=== PATIENT | female | born 1975 | race American Indian/Alaskan Native ===

== ENCOUNTER 2018-10-30 12:30 | Emergency (ER) | payer MEDICAID ==
[2018-10-30] MEDS ORDERED: APRESOLINE IV ONE (13:00)
--- NOTE | 2018-10-30 13:02 | Emergency Department Report ---
HPI - General Chief Complaint: High BP Time Seen by Provider: 10/30/18 12:56 - HPI HPI: 43-year-old female presents to the emergency department via EMS from her dialysis clinic with complaint of elevated blood pressure. The patient does have a history of hypertension and says that she has been out of her clonidine and nifedipine for a few days. She has end-stage renal disease on hemodialysis on Friday/Friday/Friday and last had dialysis done on Friday, 2 days ago. She went this morning to get dialyzed but was told they could not do it because the blood pressure was too high. She says that she was not given any blood pressure medications to attempt to get her blood pressure down. She denies any headache, chest pain, shortness of breath and otherwise feels at her baseline status. Her team member is Dr. Barker. ED Past Medical Hx - Past Medical History Hx Hypertension: Yes Hx Heart Attack/AMI: No Hx Congestive Heart Failure: Yes Hx Diabetes: Yes (DM) Hx Deep Vein Thrombosis: No Hx Pulmonary Embolism: No Hx Renal Disease: Yes (CKD) Hx Asthma: No Hx COPD: Yes Hx Tuberculosis: No Hx HIV: No - Surgical History Hx Coronary Stent: No Hx Pacemaker: No Hx Internal Defibrillator: No Additional Surgical History: - Social History Smoking Status: Unknown if ever smoked - Medications Home Medications: Home Medications Medication Instructions Recorded Confirmed Last Taken Type RX: oxyCODONE /ACETAMINOPHEN 1 tab PO Q6H PRN #12 tablet 07/23/18 09/16/18 Unknown Rx [Percocet 5/325 mg] RX: ISOSORBIDE MONOnitrate [Imdur 60 mg PO QDAY 08/19/18 09/16/18 09/16/18 10:00 History ER] RX: NIFEdipine XL [Procardia Xl] 60 mg PO Q12HR #60 tablet 08/21/18 09/16/18 09/16/18 10:00 Rx RX: hydrALAZINE [Apresoline TAB] 100 mg PO TID #90 tab 08/21/18 09/16/18 09/16/18 10:00 Rx RX: Acetaminophen [Acetaminophen 650 mg PO Q4H PRN #15 tablet 09/18/18 Unknown Rx TAB] RX: Aspirin [Aspirin TAB] 325 mg PO QDAY #30 tablet 09/18/18 Unknown Rx RX: Metoprolol [Lopressor TAB] 100 mg PO BID #60 tablet 10/30/18 Unknown Rx RX: cloNIDine [Catapres] 0.2 mg PO Q8H #90 tablet 10/30/18 Unknown Rx ED Review of Systems ROS: Stated complaint: HYPERTENTION Other details as noted in HPI Comment: All other systems reviewed and negative Constitutional: denies: chills, fever Eyes: denies: eye pain, vision change ENT: denies: ear pain, throat pain Respiratory: denies: cough, shortness of breath Cardiovascular: denies: chest pain, palpitations Gastrointestinal: denies: nausea, vomiting Genitourinary: denies: urgency, dysuria Musculoskeletal: denies: back pain, arthralgia Skin: denies: rash, lesions Neurological: denies: headache, weakness Physical Exam - Physical Exam Vital Signs: Vital Signs 10/30/18 12:52 Temperature 97.8 F Pulse Rate 97 H Respiratory 14 Rate Blood Pressure 209/103 [Left] O2 Sat by Pulse 98 Oximetry Physical Exam: GENERAL: The patient is well-developed well-nourished. HEENT: Normocephalic. Atraumatic. Patient has moist mucous membranes. EYES: Extraocular motions are intact. Pupils are equal and reactive to light bilaterally. NECK: Supple. Trachea is midline. CHEST/LUNGS: Mild coarse breath sounds. No tachypnea or accessory muscle use.. There is no respiratory distress noted. HEART/CARDIOVASCULAR: Regular. There is no tachycardia. There is no obvious murmur. ABDOMEN: Abdomen is soft, nontender. Patient has normal bowel sounds. Obese habitus. SKIN: Skin is warm and dry. NEURO: The patient is awake, alert, and oriented. The patient is cooperative. The patient has no focal neurologic deficits. The patient has normal speech. MUSCULOSKELETAL: There is no tenderness or deformity. There is no evidence of acute injury. ED Course Vital Signs 10/30/18 12:52 Temperature 97.8 F Pulse Rate 97 H Respiratory 14 Rate Blood Pressure 209/103 [Left] O2 Sat by Pulse 98 Oximetry - Consultations Consultation #1: 10/30/18 18:[address] Green, nephrology, regarding the patient's presentation and lack of dialysis secondary to her hypertension. He says that he agrees that the hypotension may be secondary to medication noncompliance and recommends refilling the blood pressure medication. He also agrees that the patient is safe for discharge home since there are no significant electrolyte abnormalities or signs of any volume overload. He recommends that the patient call the dialysis clinic today to make an appointment for dialysis for tomorrow. ED Medical Decision Making - Lab Data Result diagrams: 10/30/18 13:26 10/30/18 13:26 - Medical Decision Making Patient presents for evaluation after she was sent in by the dialysis clinic due to elevated blood pressure. Because of the elevated blood pressure the dialysis clinic would not let her get dialysis today. The patient has no complaints of any shortness of breath, edema, nausea, vomiting or any other physical complaints at this time. She has been out of her medication for the metoprolol and clonidine. Since the patient does not have any chest pain, shortness of breath or signs of any respiratory distress, did not feel that x- ray imaging was necessary at this time. Patient's labs were mostly unremarkable except for the renal insufficiency which is chronic as she is on dialysis. Patient was given a dose of hydralazine and labetalol and her blood pressure came down to a much more reasonable level. I spoke with the nephrology service who says that the patient can be safely discharged home and should call the dialysis clinic to schedule dialysis for tomorrow, Friday. Critical Care Time: No Critical care attestation.: If time is entered above; I have spent that time in minutes in the direct care of this critically ill patient, excluding procedure time. ED Disposition Clinical Impression: ESRD on hemodialysis Hypertension Qualifiers: Hypertension type: essential hypertension Qualified Code(s): I10 - Essential (primary) hypertension Disposition: - TO HOME OR SELFCARE Is pt being admited?: No Condition: Stable Instructions: Chronic Kidney Disease (ED), Hypertension (ED) Additional Instructions: Please call the dialysis clinic today to make an appointment for getting dialysi s tomorrow. Follow-up with your team member and primary care physician. Take your blood pressure medications. Try and stay away from foods that are high in salt and caffeinated products to help with her blood pressure. Keep a blood pressure log. Return to the emergency department with any shortness of breath, chest pain, worsening of your symptoms, if any acute distress. Prescriptions: RX: cloNIDine [Catapres] 0.2 mg PO Q8H #90 tablet RX: Metoprolol [Lopressor TAB] 100 mg PO BID #60 tablet Referrals: PRIMARY CARE, [Primary Care Provider] - SRED[facility]AR Time of Disposition: 15:28
[2018-10-30 13:49] LABS: Basophils # (Auto) 0.1 K/mm3 (0.0-0.1); Eosinophils # (Auto) 0.1 K/mm3 (0.0-0.4); Eosinophils % (Auto) 1.9 % (0.0-4.3); Hemoglobin 10.3 gm/dl (10.1-14.3); Mean Corpuscular HGB Conc 32 % (30-34); Mean Corpuscular Volume 85 fl (79-97); Monocytes # (Auto) 0.9 K/mm3 (0.0-0.8); Monocytes % (Auto) 12.7 % (0.0-7.3); Platelet Count 336 K/mm3 (140-440); Red Blood Count 3.77 M/mm3 (3.65-5.03)
[2018-10-30 13:50] LABS: Red Cell Distribution Width 21.4 % (13.2-15.2)
[2018-10-30 14:28] LABS: Anisocytosis 1+; Basophils % (Manual) 0 % (0.0-1.8); Hypochromasia 1+; Total Cells Counted 100
[2018-10-30 14:29] LABS: Ovalocytes Few; Target Cells 1+
[2018-10-30 15:00] LABS: Albumin 3.7 g/dL (3.9-5); Calcium 9.8 mg/dL (8.4-10.2)
[2018-10-30] MEDS ORDERED: NORMODYNE IV ONE (15:01)
[2018-10-30 15:38] VITALS: BP 145/82
== END 2018-10-30 15:53 | disposition home or self-care (01) ==
LOC: MERGE 12:30 → ED 12:30
DX: I13.2 Hypertensive heart and chronic kidney disease with heart failure and with stage 5 chronic kidney disease, or end stage renal disease (principal); E11.22 Type 2 diabetes mellitus with diabetic chronic kidney disease; N18.6 End stage renal disease; I50.9 Heart failure, unspecified; J44.9 Chronic obstructive pulmonary disease, unspecified; Z99.2 Dependence on renal dialysis; Z79.4 Long term (current) use of insulin; Z79.82 Long term (current) use of aspirin
CPT/HCPCS: 36415; 80053; 85007; 85025; 96374; 96375; 99284; J0360

== ENCOUNTER 2019-01-27 11:26 | Emergency (ER) | payer MEDICAID ==
--- NOTE | 2019-01-27 11:53 | Emergency Department Report ---
Blank Doc - Documentation Documentation: This is a 43-year-old female that presents with missing dialysis. Was sent by PCP. Missed Mondays dialysis. This initial assessment/diagnostic orders/clinical plan/treatment(s) is/are subject to change based on patient's health status, clinical progression and re- assessment by fellow clinical providers in the ED. Further treatment and workup at subsequent clinical providers discretion. Patient/guardians urged not to elope from the ED as their condition may be serious if not clinically assessed and managed. Initial orders include: 1- Patient sent to MAIN ED for further evaluation and treatment 2- labs 3- EKG
[2019-01-27 11:54] VITALS: BP 139/80
--- NOTE | 2019-01-27 12:12 | Emergency Department Report ---
ED Recheck HPI - General Chief Complaint: Medical Clearance Stated Complaint: LABS FOR POTASSIUM/EAR ACHE Time Seen by Provider: 01/27/19 11:51 Source: patient Mode of arrival: Ambulatory Limitations: No Limitations - History of Present Illness Initial Comments: SENT BY HD CLINIC FOR LABS BECAUSE SHE MISSED HD ON FRIDAY. NO SYMPTOMS. - Related Data Previous Rx's Medication Instructions Recorded Last Taken Type NIFEdipine XL [Procardia Xl] 60 mg PO Q12HR #60 tablet 08/21/18 09/16/18 10:00 Rx hydrALAZINE [Apresoline TAB] 100 mg PO TID #90 tab 08/21/18 09/16/18 10:00 Rx cloNIDine [Catapres] 0.2 mg PO Q8H #90 tablet 10/30/18 Unknown Rx Cetirizine HCl [ZyrTEC] 10 mg PO DAILY #30 capsule 01/27/19 Unknown Rx Fluticasone [Flonase] 1 spray NS QDAY #1 bottle 01/27/19 Unknown Rx Allergies Allergy/AdvReac Type Severity Reaction Status Date / Time No Known Allergies Allergy Verified 01/27/19 11:29 ED Review of Systems ROS: Stated complaint: LABS FOR POTASSIUM/EAR ACHE Other details as noted in HPI Comment: All other systems reviewed and negative ED Past Medical Hx - Past Medical History Hx Hypertension: Yes Hx Heart Attack/AMI: No Hx Congestive Heart Failure: Yes Hx Diabetes: Yes (DM) Hx Deep Vein Thrombosis: No Hx Pulmonary Embolism: No Hx Renal Disease: Yes (CKD) Hx Asthma: No Hx COPD: Yes Hx Tuberculosis: No Hx HIV: No - Surgical History Hx Coronary Stent: No Hx Pacemaker: No Hx Internal Defibrillator: No Additional Surgical History: - Social History Smoking Status: Never Smoker Substance Use Type: None - Medications Home Medications: Home Medications Medication Instructions Recorded Confirmed Last Taken Type NIFEdipine XL [Procardia Xl] 60 mg PO Q12HR #60 tablet 08/21/18 09/16/18 09/16/18 10:00 Rx hydrALAZINE [Apresoline TAB] 100 mg PO TID #90 tab 08/21/18 09/16/18 09/16/18 10:00 Rx cloNIDine [Catapres] 0.2 mg PO Q8H #90 tablet 10/30/18 Unknown Rx Cetirizine HCl [ZyrTEC] 10 mg PO DAILY #30 capsule 01/27/19 Unknown Rx Fluticasone [Flonase] 1 spray NS QDAY #1 bottle 01/27/19 Unknown Rx ED Physical Exam - General Limitations: No Limitations General appearance: alert - Head Head exam: Present: atraumatic, normocephalic - Eye Eye exam: Present: normal appearance - ENT ENT exam: Present: mucous membranes moist - Neck Neck exam: Present: normal inspection - Respiratory Respiratory exam: Present: normal lung sounds bilaterally - Cardiovascular Cardiovascular Exam: Present: regular rate - GI/Abdominal GI/Abdominal exam: Present: soft, normal bowel sounds - Rectal Rectal exam: Present: deferred - Extremities Exam Extremities exam: Present: normal inspection, full ROM, other (GEN EDEMA) - Back Exam Back exam: Present: normal inspection - Neurological Exam Neurological exam: Present: alert, oriented X3 - Psychiatric Psychiatric exam: Present: normal affect, normal mood - Skin Skin exam: Present: warm, dry ED Course Vital Signs 01/27/19 11:52 Temperature 97.8 F Pulse Rate 76 Respiratory 18 Rate Blood Pressure 139/80 O2 Sat by Pulse 97 Oximetry - Reevaluation(s) Reevaluation #1: 01/27/19 VASCATH L SUBCLAVIAN ON HD X 2 M NO SYMPTOMS VSS ED Recheck MDM - Core Measures Measure Exclusions: not indicated - Medical Decision Making Vital Signs (72 hours) 01/27/19 11:52 Temperature 97.8 F Pulse Rate 76 Respiratory 18 Rate Blood Pressure 139/80 O2 Sat by Pulse 97 Oximetry Labs 01/27/19 01/27/19 12:05 12:05 WBC 7.0 RBC 4.14 Hgb 12.1 Hct 36.4 MCV 88 MCH 29 MCHC 33 RDW 18.6 H Plt Count 269 Lymph % (Auto) 13.3 L Trigg % (Auto) 13.1 H Eos % (Auto) 1.5 Baso % (Auto) 1.2 Lymph # 0.9 L Trigg # 0.9 H Eos # 0.1 Baso # 0.1 Seg Neutrophils % 70.9 H Seg Neutrophils # 5.0 Sodium 137 Potassium 4.1 Chloride 98.3 Carbon Dioxide 17 L Anion Gap 26 BUN 64 H Creatinine 9.0 H Estimated GFR 5 BUN/Creatinine Ratio 7 Glucose 125 H Calcium 9.4 Phosphorus 7.40 H LABS NOTED DC TO HD CLINIC Critical care attestation.: If time is entered above; I have spent that time in minutes in the direct care of this critically ill patient, excluding procedure time. ED Disposition Clinical Impression: CKD (chronic kidney disease), End stage renal disease on dialysis, Ear pain Disposition: TO HOME OR SELFCARE Is pt being admited?: No Does the pt Need Aspirin: No Condition: Stable Additional Instructions: K 4.1 PHOS 7.4 TAKE INFO TO HD LAB Prescriptions: Fluticasone [Flonase] 1 spray NS QDAY #1 bottle Cetirizine HCl [ZyrTEC] 10 mg PO DAILY #30 capsule Referrals: DEREJE PUENTE MD [Primary Care Provider] - 3-5 Days Time of Disposition: 12:49
[2019-01-27 12:17] LABS: Basophils # (Auto) 0.1 K/mm3 (0.0-0.1); Basophils % (Auto) 1.2 % (0.0-1.8); Eosinophils # (Auto) 0.1 K/mm3 (0.0-0.4); Eosinophils % (Auto) 1.5 % (0.0-4.3); Hematocrit 36.4 % (30.3-42.9); Hemoglobin 12.1 gm/dl (10.1-14.3); Lymphocytes # (Auto) 0.9 K/mm3 (1.2-5.4); Lymphocytes % (Auto) 13.3 % (13.4-35.0); Mean Corpuscular HGB Conc 33 % (30-34); Mean Corpuscular Volume 88 fl (79-97); Monocytes # (Auto) 0.9 K/mm3 (0.0-0.8); Monocytes % (Auto) 13.1 % (0.0-7.3); Platelet Count 269 K/mm3 (140-440); Red Blood Count 4.14 M/mm3 (3.65-5.03); Red Cell Distribution Width 18.6 % (13.2-15.2)
[2019-01-27 12:36] LABS: Calcium 9.4 mg/dL (8.4-10.2)
== END 2019-01-27 13:01 | disposition home or self-care (01) ==
LOC: MERGE 11:26 → ED 11:26
DX: E11.22 Type 2 diabetes mellitus with diabetic chronic kidney disease (principal); I13.2 Hypertensive heart and chronic kidney disease with heart failure and with stage 5 chronic kidney disease, or end stage renal disease; I50.9 Heart failure, unspecified; N18.6 End stage renal disease; H92.02 Otalgia, left ear; Z99.2 Dependence on renal dialysis
CPT/HCPCS: 36415; 80048; 84100; 85025

== ENCOUNTER 2019-03-12 12:22 | Observation (INO) | payer MEDICARE ==
--- NOTE | 2019-03-12 13:07 | Emergency Department Report ---
Blank Doc - Documentation Documentation: pt states that the dialysis clinic wanted her to have labs drawn she last went to dialysis on 03/03 pt is asymptomatic she goes to dialysis on MWF non smoker non drinker no allergies to medications PMHx HTN, DM
[2019-03-12 13:37] LABS: Basophils # (Auto) 0.1 K/mm3 (0.0-0.1); Basophils % (Auto) 0.8 % (0.0-1.8); Eosinophils # (Auto) 0.2 K/mm3 (0.0-0.4); Eosinophils % (Auto) 3.7 % (0.0-4.3); Hematocrit 34.4 % (30.3-42.9); Hemoglobin 11.1 gm/dl (10.1-14.3); Lymphocytes # (Auto) 1.6 K/mm3 (1.2-5.4); Lymphocytes % (Auto) 23.4 % (13.4-35.0); Mean Corpuscular HGB Conc 32 % (30-34); Mean Corpuscular Volume 88 fl (79-97); Monocytes % (Auto) 14.7 % (0.0-7.3); Platelet Count 240 K/mm3 (140-440); Red Blood Count 3.91 M/mm3 (3.65-5.03); Red Cell Distribution Width 17.5 % (13.2-15.2)
[2019-03-12 13:57] LABS: Calcium 9.6 mg/dL (8.4-10.2)
[2019-03-12] MEDS ORDERED: CATAPRES PO ONE (14:33)
--- NOTE | 2019-03-12 14:34 | Emergency Department Report ---
HPI - General Chief Complaint: Recheck/Abnormal Lab/Rx Time Seen by Provider: 03/12/19 13:05 - HPI HPI: Room 4 The patient is a 43-year-old female presenting with a chief complaint of end- stage renal disease. The patient has a history end-stage renal disease and is usually dialyzed every Friday and Friday. Patient states she was last dialyzed 2 days ago (Friday) and was unable to go today secondary to a in the family. The patient states she called the dialysis center and was told to come to the ED to have her potassium checked. The patient denies complaints Location: [See above] Duration: [See above] Quality: [See above] Severity: [See above] Modifying factors: [see above] Context: [see above] Mode of transportation: [not driving] ED Past Medical Hx - Past Medical History Hx Hypertension: Yes Hx Congestive Heart Failure: Yes Hx Diabetes: Yes Hx Renal Disease: Yes Hx COPD: Yes - Surgical History Additional Surgical History: Perm cath, - Family History Family history: no significant - Social History Smoking Status: Never Smoker Substance Use Type: None - Medications Home Medications: Home Medications Medication Instructions Recorded Confirmed Last Taken Type NIFEdipine XL [Procardia Xl] 60 mg PO Q12HR #60 tablet 08/21/18 09/16/18 09/16/18 10:00 Rx hydrALAZINE [Apresoline TAB] 100 mg PO TID #90 tab 08/21/18 09/16/18 09/16/18 10:00 Rx cloNIDine [Catapres] 0.2 mg PO Q8H #90 tablet 10/30/18 Unknown Rx Cetirizine HCl [ZyrTEC] 10 mg PO DAILY #30 capsule 01/27/19 Unknown Rx Fluticasone [Flonase] 1 spray NS QDAY #1 bottle 01/27/19 Unknown Rx NIFEdipine XL [Procardia Xl] 60 mg PO QDAY #30 tablet 02/14/19 Unknown Rx oxyCODONE /ACETAMINOPHEN [Percocet 1 tab PO Q6H PRN tablet 02/14/19 Unknown Rx 5/325 mg] ED Review of Systems ROS: Stated complaint: BLOOD WORK FOR DIALYSIS Other details as noted in HPI Constitutional: no symptoms reported Eyes: denies: eye pain ENT: denies: throat pain Respiratory: no symptoms reported Cardiovascular: denies: chest pain Endocrine: no symptoms reported Gastrointestinal: denies: abdominal pain Genitourinary: denies: abnormal menses Musculoskeletal: denies: back pain Neurological: denies: headache Physical Exam - Physical Exam Vital Signs: Vital Signs 03/12/19 13:05 Temperature 98 F Pulse Rate 99 H Respiratory 18 Rate Blood Pressure 218/115 O2 Sat by Pulse 96 Oximetry Physical Exam: GENERAL: The patient is well-developed well-nourished female lying on stretcher not appearing to be in acute distress. [] HEENT: Normocephalic. Atraumatic. Extraocular motions are intact. Patient has moist mucous membranes. NECK: Supple. Trachea midline CHEST/LUNGS: Clear to auscultation. There is no respiratory distress noted. HEART/CARDIOVASCULAR: Regular. There is no tachycardia. There is no gallop rub or murmur. ABDOMEN: Abdomen is soft, nontender. Patient has normal bowel sounds. There is no abdominal distention. SKIN: There is no rash. There is no edema. There is no diaphoresis. NEURO: The patient is awake, alert, and oriented. The patient is cooperative. The patient has normal speech MUSCULOSKELETAL: There is no evidence of acute injury. ED Course Vital Signs 03/12/19 13:05 Temperature 98 F Pulse Rate 99 H Respiratory 18 Rate Blood Pressure 218/115 O2 Sat by Pulse 96 Oximetry - Consultations Consultation #1: 03/12/19 15:18 Case discussed with ferry captain Dr. George- will arrange for hemodialysis today ED Medical Decision Making - Lab Data Result diagrams: 03/12/19 13:12 03/12/19 13:12 Laboratory Tests 03/12/19 03/12/19 03/12/19 13:12 13:12 13:36 WBC 6.7 RBC 3.91 Hgb 11.1 Hct 34.4 MCV 88 MCH 28 MCHC 32 RDW 17.5 H Plt Count 240 Lymph % (Auto) 23.4 Sac % (Auto) 14.7 H Eos % (Auto) 3.7 Baso % (Auto) 0.8 Lymph # 1.6 Sac # 1.0 H Eos # 0.2 Baso # 0.1 Seg Neutrophils % 57.4 Seg Neutrophils # 3.8 Sodium 140 Potassium 4.0 Chloride 97.9 L Carbon Dioxide 21 L Anion Gap 25 BUN 65 H Creatinine 8.4 H Estimated GFR 6 BUN/Creatinine Ratio 8 Glucose 135 H Calcium 9.6 Phosphorus 5.00 H Magnesium 2.10 - Differential Diagnosis end-stage renal disease Critical care attestation.: If time is entered above; I have spent that time in minutes in the direct care of this critically ill patient, excluding procedure time. ED Disposition Clinical Impression: End stage renal disease, Missed dialysis Disposition: OP ADMIT IP TO THIS HOSP Is pt being admited?: Yes Does the pt Need Aspirin: No Condition: Fair Referrals: RU ARCHIBALD MD [Primary Care Provider] - 3-5 Days Time of Disposition: 15:19 (hospitalist notified (Dr Arizmendi))
--- NOTE | 2019-03-12 15:55 | Consultation ---
History of Present Illness - Reason for Consult end stage renal disease - History of Present Illness 43 year old with medical history significant for hypertension uncontrolled, diabetes mellitus type 2 uncontrolled end-stage renal disease on hemodialysis on Friday at [facility] reports she had a in the family and did not go to dialysis today was told by dialysis. She was told by dialysis nurse to come to the hospital to check her potassium level. She has significant lower extremity edema denies any shortness of breath she denies any orthopnea PND she reports her last dialysis was Friday she denies any cough. Denies Fevers chills denies any nausea vomiting. Denies any cramps she has a right IJ PermCath she recently started dialysis about a year ago Medications and Allergies Allergies Allergy/AdvReac Type Severity Reaction Status Date / Time No Known Allergies Allergy Verified 03/12/19 12:23 Home Medications Medication Instructions Recorded Confirmed Last Taken Type NIFEdipine XL [Procardia Xl] 60 mg PO Q12HR #60 tablet 08/21/18 09/16/18 09/16/18 10:00 Rx hydrALAZINE [Apresoline TAB] 100 mg PO TID #90 tab 08/21/18 09/16/18 09/16/18 10:00 Rx cloNIDine [Catapres] 0.2 mg PO Q8H #90 tablet 10/30/18 Unknown Rx Cetirizine HCl [ZyrTEC] 10 mg PO DAILY #30 capsule 01/27/19 Unknown Rx Fluticasone [Flonase] 1 spray NS QDAY #1 bottle 01/27/19 Unknown Rx NIFEdipine XL [Procardia Xl] 60 mg PO QDAY #30 tablet 02/14/19 Unknown Rx oxyCODONE /ACETAMINOPHEN [Percocet 1 tab PO Q6H PRN tablet 02/14/19 Unknown Rx 5/325 mg] Review of Systems Constitutional: weight gain, fatigue, no fever, no chills, no sweats, no anorexia Ears, nose, mouth and throat: no deferred, no ear pain Cardiovascular: no chest pain, no orthopnea, no palpitations, no shortness of breath Respiratory: no cough, no cough with sputum Gastrointestinal: no abdominal pain, no nausea, no vomiting Musculoskeletal: no neck stiffness, no neck pain Integumentary: no deferred, no rash Neurological: no head injury, no transient paralysis Psychiatric: no anxiety, no memory loss Endocrine: no cold intolerance, no heat intolerance Hematologic/Lymphatic: no easy bruising, no easy bleeding Allergic/Immunologic: no urticaria, no allergic rhinitis Exam - Vital Signs Vital signs: Vital Signs Temp Pulse Resp BP Pulse Ox 98 F 99 H 18 218/115 96 03/12/19 13:05 03/12/19 13:05 03/12/19 13:05 03/12/19 13:05 03/12/19 13:05 - General Appearance General appearance: well-developed, well-nourished EENT: ATNC, PERRL, mucous membranes moist Neck: Present: neck supple Respiratory: Clear to Ascultation Heart: regular, S1S2 Gastrointestinal: Present: normal, normoactive bowel sounds Neurologic: no focal deficit, CN 3-12 intact Musculoskeletal: Present: other (grade 3 edema. ) Psychiatric: mood/affect appropriate Results - Lab Results 03/12/19 13:12 03/12/19 13:12 Most recent lab results Calcium 9.6 mg/dL (8.4-10.2) 03/12/19 13:12 Phosphorus 5.00 mg/dL (2.5-4.5) H 03/12/19 13:36 Magnesium 2.10 mg/dL (1.7-2.3) 03/12/19 13:36 Assessment and Plan - Patient Problems (1) ESRD (end stage renal disease) Current Visit: Yes Status: Acute Plan to address problem: End-stage renal disease on dialysis Dialysis access right IJ PermCath will initiate dialysis 3 L fluid removal Treatment time 3 and half hours (2) CHF (congestive heart failure) Current Visit: No Status: Acute Qualifiers: Heart failure type: diastolic Plan to address problem: Congestive heart failure I reviewed echocardiogram with diastolic dysfunction and preserved EF Ultrafiltration with dialysis (3) Diabetes mellitus Current Visit: No Status: Chronic Qualifiers: Diabetes mellitus type: type 2 Plan to address problem: Diabetes mellitus type 2 uncontrolled Continue medications Monitor fingerstick (4) Hypertensive urgency Current Visit: No Status: Acute Plan to address problem: Hypertensive urgency: Blood pressure 223/111 We'll initiate dialysis to optimize wound status Give labetalol 20 mg IV Resume oral medications
[2019-03-12] MEDS ORDERED: NORMODYNE IV PRN (16:12)
[2019-03-12 20:17] VITALS: BP 204/106
--- NOTE | 2019-03-12 23:15 | History and Physical Report ---
CHIEF COMPLAINT: Missed dialysis today. HISTORY OF PRESENT ILLNESS: A 43-year-old -[place] female with history of hypertension and end-stage renal disease, who missed dialysis today, comes in for emergent dialysis. The patient had a in the family and did not go to the dialysis. The dialysis center wanted her potassium to be checked before she comes back on Friday. The patient is to be sent to do hemodialysis for emergent dialysis. Some shortness of breath is present. Otherwise, asymptomatic. PAST MEDICAL HISTORY: Significant for hypertension, end-stage renal disease. CURRENT MEDICATIONS: On the chart including nifedipine 60 mg q.12 hours, hydralazine 100 mg 3 times a day, clonidine 0.2 p.o. q.8 hours, cetirizine 10 mg daily q.i.d., Flonase 1 spray daily, oxycodone/Percocet 1 tablet 5/325 q.i.d. p.r.n. PAST SURGICAL HISTORY: The patient has AV fistula in the left arm. FAMILY HISTORY: Hypertension. SOCIAL HISTORY: Does not smoke. No alcohol, no recreational drugs. REVIEW OF SYSTEMS: Significant for slight shortness of breath. Otherwise, review of systems negative. PHYSICAL EXAMINATION: GENERAL: Revealed a middle-aged female, cooperative during examination. VITAL SIGNS: Blood pressure is 194/103 and 190/90, temperature is 98.2, pulse is 78, respirations 18. HEENT: Unremarkable. Pupils are equal and reactive. NECK: Supple, no lymphadenopathy, no thyromegaly. LUNGS: Clear to auscultation and percussion. Good air entry. CARDIOVASCULAR: S1, S2 heard. No gallop, no murmur, no rub. Apical impulse in left fifth intercostal space and midclavicular line. ABDOMEN: Soft and benign. No hepatosplenomegaly. No guarding, no rigidity. Hernial orifices are normal. EXTREMITIES: Good pedal pulses. No pedal edema. CENTRAL NERVOUS SYSTEM: Alert and oriented x 4, nonfocal exam. LABORATORY DATA: CBC is near normal. Electrolytes: Sodium is 140, potassium is 4.0, chloride is 97.1, bicarbonate is 21, BUN and creatinine 65 and 8.4, phosphorus is 5.0. ASSESSMENT AND PLAN: 1. End-stage renal disease, needing dialysis. The patient is being sent for hemodialysis. Nephrology consulted. 2. Hypertensive emergency. Resume her home medications and also the patient counseled about compliance with medications. 3. Allergic rhinitis. Continue Flonase. 4. Chronic pain. Continue Percocet 5/325. 5. Deep venous thrombosis prophylaxis, heparin 5000 q. 12. In summary, the patient has end-stage renal disease, needing dialysis, hypertensive emergency. Medications adjusted. 6. Allergic rhinitis. 7. Chronic pain. JOB# [id number] VSTra/NTS
--- NOTE | 2019-03-12 23:16 | Discharge Summary ---
HOSPITAL COURSE: The patient was admitted for hypertensive emergency and end-stage renal disease, needing dialysis. The patient did not have hyperkalemia. The patient missed dialysis. The patient was sent for emergent dialysis. The patient tolerated dialysis well. The patient's labs were checked. Potassium was 4.0, bicarbonate was 21. Phosphatase was slightly high 5.00. The patient underwent dialysis well, symptomatically better. The patient is being discharged on her home medications and no new medications. DISCHARGE DIAGNOSES: 1. Hypertensive emergency. The patient counseled about controlling her blood pressure and taking her blood pressure medicines regularly. The last blood pressure at the time of discharge was 187/92. 2. End-stage renal disease. To continue her dialysis on a regular basis. Counseled about compliance. 3. Allergic rhinitis. Continue her Flonase and Zyrtec. 4. Chronic pain. Continue Percocet. JOB# [id number] CAROLINE/NTS
== END 2019-03-12 20:55 | disposition home or self-care (01) ==
LOC: ED 12:22 → 3A 15:21
PROVIDERS: ADMIT Internal Medicine; ATTEND Internal Medicine
DX: I13.2 Hypertensive heart and chronic kidney disease with heart failure and with stage 5 chronic kidney disease, or end stage renal disease (principal); E11.22 Type 2 diabetes mellitus with diabetic chronic kidney disease; N18.6 End stage renal disease; I50.9 Heart failure, unspecified; I16.0 Hypertensive urgency; J30.9 Allergic rhinitis, unspecified; Z99.2 Dependence on renal dialysis; Z79.899 Other long term (current) drug therapy; G89.29 Other chronic pain; Z98.890 Other specified postprocedural states
CPT/HCPCS: 36415; 80048; 83735; 84100; 85025; 99284; G0378; G0257

== ENCOUNTER 2019-04-07 10:16 | Observation (INO) | payer MEDICARE ==
[2019-04-07 11:07] LABS: Hematocrit 31.6 % (30.3-42.9); Hemoglobin 10.4 gm/dl (10.1-14.3); Mean Corpuscular HGB Conc 33 % (30-34); Mean Corpuscular Volume 87 fl (79-97); Platelet Count 222 K/mm3 (140-440); Red Blood Count 3.64 M/mm3 (3.65-5.03); Red Cell Distribution Width 16.5 % (13.2-15.2)
--- NOTE | 2019-04-07 11:29 | XRay Report ---
Single view chest: Compared to 02/14/19. History: Shortness of breath. Findings: Cardiomegaly. Trachea is midline. Stable large bore venous catheter. Mild pulmonary venous congestion mid and right second Impression: Unilateral mild pulmonary venous congestion.
[2019-04-07 11:40] LABS: Albumin 3.5 g/dL (3.9-5); Calcium 9.7 mg/dL (8.4-10.2)
[2019-04-07] MEDS ORDERED: CATAPRES PO ONE (12:12)
--- NOTE | 2019-04-07 12:15 | Emergency Department Report ---
HPI - General Chief Complaint: Medical Clearance Time Seen by Provider: 04/07/19 11:01 - HPI HPI: Missed dialysis for two weeks because she didn't feel well. states she has been coughing, sob, and feeling week. Was sent to ER by nephro. no n/v, no chest p ain. states bp has been running high. She denies medications compliance. Patient had recent hospitalization in february. Patient with right PermaCath in place since july of 2018. ED Past Medical Hx - Past Medical History Hx Hypertension: Yes Hx Heart Attack/AMI: No Hx Congestive Heart Failure: Yes Hx Diabetes: Yes Hx Deep Vein Thrombosis: No Hx Pulmonary Embolism: No Hx Renal Disease: Yes Hx Asthma: No Hx COPD: Yes Hx Tuberculosis: No Hx HIV: No - Surgical History Hx Coronary Stent: No Hx Pacemaker: No Hx Internal Defibrillator: No Additional Surgical History: Perm cath, - Social History Smoking Status: Never Smoker Substance Use Type: None - Medications Home Medications: Home Medications Medication Instructions Recorded Confirmed Last Taken Type NIFEdipine XL [Procardia Xl] 60 mg PO Q12HR #60 tablet 08/21/18 04/07/19 09/16/18 10:00 Rx hydrALAZINE [Apresoline TAB] 100 mg PO TID #90 tab 08/21/18 04/07/19 09/16/18 10:00 Rx cloNIDine [Catapres] 0.2 mg PO TID 04/07/19 04/07/19 Unknown History ED Review of Systems ROS: Stated complaint: LAB WORK Other details as noted in HPI Comment: All other systems reviewed and negative Constitutional: chills, malaise. denies: fever Eyes: denies: eye pain ENT: denies: ear pain Respiratory: orthopnea, shortness of breath, SOB with exertion, SOB at rest Cardiovascular: dyspnea on exertion Genitourinary: urgency Skin: denies: rash, lesions Psychiatric: denies: anxiety, depression Physical Exam - Physical Exam Vital Signs: Vital Signs 04/07/19 04/07/19 04/07/19 11:32 11:34 11:41 Temperature 98.0 F 98.0 F Pulse Rate 70 70 Respiratory 20 20 20 Rate Blood Pressure 198/102 Blood Pressure 198/102 [Left] O2 Sat by Pulse 100 100 100 Oximetry Physical Exam: Physical Exam: GENERAL: The patient is a morbidly obese female HEENT: Normocephalic. Atraumatic. Extraocular motions are intact. Patient has moist mucous membranes. NECK: Trachea midline CHEST/LUNGS: Clear to auscultation. There is no respiratory distress noted. right chest perma cath HEART/CARDIOVASCULAR: Regular. There is no tachycardia. There is no gallop rub or murmur. ABDOMEN: Abdomen is soft, nontender. Patient has normal bowel sounds. There is no abdominal distention. SKIN: There is no rash. There is no edema. There is no diaphoresis. NEURO: The patient is awake and alert x 3 MUSCULOSKELETAL: There is no evidence of acute injury. ED Course Vital Signs 04/07/19 04/07/19 04/07/19 11:32 11:34 11:41 Temperature 98.0 F 98.0 F Pulse Rate 70 70 Respiratory 20 20 20 Rate Blood Pressure 198/102 Blood Pressure 198/102 [Left] O2 Sat by Pulse 100 100 100 Oximetry - Reevaluation(s) Reevaluation #1: 04/07/19 13:05 bp improved, will continue to monitor. no chest pain, mild sob ED Medical Decision Making - Lab Data Result diagrams: 04/07/19 10:35 04/07/19 10:35 - EKG Data -: EKG Interpreted by Ca EKG shows normal: sinus rhythm - EKG Data Interpretation: other 04/07/19 13:02 right axis deviation, - Radiology Data Radiology results: report reviewed - Medical Decision Making Missed dialysis for two weeks because she didn't feel well. states she has been coughing, sob, and feeling week. Was sent to ER by nephro. no n/v, no chest pain. states bp has been running high. She denies medications compliance. Patient had recent hospitalization in february. Patient with right PermaCath in place since july of 2018. patient given clonidine 0.2 mg for high bp patient had ekg, cbc, cmp, cxr mild fluid overload on exam, cxr will admit for urgent dialysis spoke with Dr. 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 - Differential Diagnosis fluid overload, htn, hypertensive emergency Critical care attestation.: If time is entered above; I have spent that time in minutes in the direct care of this critically ill patient, excluding procedure time. ED Disposition Clinical Impression: Missed dialysis, ESRD (end stage renal disease), Uncontrolled hypertension, End-stage renal disease needing dialysis Volume overload Qualifiers: Hypervolemia type: other Qualified Code(s): E87.79 - Other fluid overload Upper respiratory infection Qualifiers: URI type: unspecified viral URI Qualified Code(s): J06.9 - Acute upper respiratory infection, unspecified Hypertensive heart disease Qualifiers: Heart failure presence: with heart failure Heart failure type: systolic Heart failure chronicity: acute on chronic Qualified Code(s): I11.0 - Hypertensive heart disease with heart failure Diabetes Qualifiers: Diabetes mellitus type: type 2 Diabetes mellitus nursing home insulin use: without longwall 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
[2019-04-07] MEDS ORDERED: NACL 0.9% 100 ML IV PRN ×2 (12:36→12:37)
--- NOTE | 2019-04-07 14:07 | Consultation ---
History of Present Illness - Reason for Consult Consult date: 04/07/19 end stage renal disease, accelerated hypertension Requesting physician: EMERSON MCDOWELL - History of Present Illness Missed dialysis for two weeks because she didn't feel well. states she has been coughing, sob, and feeling week. Was sent to ER by nephro. no n/v, no chest pain. states bp has been running high. She denies medications compliance. Patient had recent hospitalization in february. Patient with right PermaCath in place since july of 2018. - Past Medical History Hx Hypertension: Yes Hx Heart Attack/AMI: No Hx Congestive Heart Failure: Yes Hx Diabetes: Yes Hx Deep Vein Thrombosis: No Hx Pulmonary Embolism: No Hx Renal Disease: Yes Hx Asthma: No Hx COPD: Yes Hx Tuberculosis: No Hx HIV: No - Surgical History Hx Coronary Stent: No Hx Pacemaker: No Hx Internal Defibrillator: No Additional Surgical History: Perm cath, - Social History Smoking Status: Never Smoker Substance Use Type: None ROS: Stated complaint: LAB WORK Other details as noted in HPI Comment: All other systems reviewed and negative Constitutional: chills, malaise. denies: fever Eyes: denies: eye pain ENT: denies: ear pain Respiratory: orthopnea, shortness of breath, SOB with exertion, SOB at rest Cardiovascular: dyspnea on exertion Genitourinary: urgency Skin: denies: rash, lesions Psychiatric: denies: anxiety, depression Medications and Allergies Allergies Allergy/AdvReac Type Severity Reaction Status Date / Time No Known Allergies Allergy Verified 03/12/19 12:23 Home Medications Medication Instructions Recorded Confirmed Last Taken Type NIFEdipine XL [Procardia Xl] 60 mg PO Q12HR #60 tablet 08/21/18 04/07/19 09/16/18 10:00 Rx hydrALAZINE [Apresoline TAB] 100 mg PO TID #90 tab 08/21/18 04/07/19 09/16/18 10:00 Rx cloNIDine [Catapres] 0.2 mg PO TID 04/07/19 04/07/19 Unknown History Active Meds: Active Medications Sodium Chloride (Nacl 0.9%) 100 mls @ 999 mls/hr IV AMBER PRN PRN Reason: Hypotension Sodium Chloride (Nacl 0.9%) 100 mls @ 999 mls/hr IV AMBER PRN PRN Reason: Hypotension Exam - Vital Signs Vital signs: Vital Signs Pulse Ox 100 04/07/19 11:26 - Physical Exam Narrative exam: GENERAL: The patient is a morbidly obese female HEENT: Normocephalic. Atraumatic. Extraocular motions are intact. Patient has moist mucous membranes. NECK: Trachea midline CHEST/LUNGS: Clear to auscultation. There is no respiratory distress noted. right chest perma cath HEART/CARDIOVASCULAR: Regular. There is no tachycardia. There is no gallop rub or murmur. ABDOMEN: Abdomen is soft, nontender. Patient has normal bowel sounds. There is no abdominal distention. SKIN: There is no rash. There is no edema. There is no diaphoresis. NEURO: The patient is awake and alert x 3 MUSCULOSKELETAL: There is no evidence of acute injury. Results - Lab Results 04/07/19 10:35 04/07/19 10:35 Most recent lab results Calcium 9.7 mg/dL (8.4-10.2) 04/07/19 10:35 Phosphorus 6.30 mg/dL (2.5-4.5) H 04/07/19 10:35 Assessment and Plan mpression: * End stage renal disease on HD MWF * Hypertension, uncontrolled * pulmonary edema * Obesity * Anemia secondary to ESRD * Secondary hyperparathyroidism Plan * Remove fluid as tolerated * Continue dialysis on MWF schedule for now * Blood pressure is under control. Continue current antihypertensive meds * Epogen TIW prn when BP improved * Renal diet * Addressed need for compliance with dialysis at length
[2019-04-07] MEDS ORDERED: CATAPRES PO SCH (18:30)
[2019-04-07] MEDS ORDERED: NACL 0.9 (PRIMING MACHINE ONLY DIALYSIS) MC ONE (18:55)
[2019-04-07] MEDS ORDERED: ZOFRAN IV PRN (19:47)
[2019-04-07] MEDS ORDERED: PERCOCET 5/325 PO PRN (19:47)
[2019-04-07] MEDS ORDERED: REGLAN IV PRN (19:47)
[2019-04-07] MEDS ORDERED: TYLENOL PO PRN (19:47)
[2019-04-07] MEDS ORDERED: SODIUM CHLORIDE FLUSH SYRINGE 10 ML IV PRN (19:47)
[2019-04-07] MEDS ORDERED: DILAUDID IV PRN (19:47)
[2019-04-07] MEDS: CATAPRES PO SCH (20:31)
[2019-04-07] MEDS: APRESOLINE PO SCH (20:31)
[2019-04-07] MEDS: HEPARIN SUB-Q SCH (23:15)
[2019-04-07] MEDS: PEPCID PO SCH (23:16)
[2019-04-07] MEDS: SODIUM CHLORIDE FLUSH SYRINGE 10 ML IV SCH (23:16)
[2019-04-07] MEDS: PROCARDIA XL PO SCH (23:16)
[2019-04-08] MEDS: CATAPRES PO SCH ×3 (04:21→14:44)
[2019-04-08] MEDS: APRESOLINE PO SCH ×3 (04:23→14:44)
--- NOTE | 2019-04-08 05:28 | Event Note ---
Date: 04/07/19 See H/p in reports Volume overload Noncompliance ESRD on HD Missed HD for 2.5 weeks
[2019-04-08] MEDS ORDERED: APRESOLINE IV PRN ×2 (05:44→05:51)
--- NOTE | 2019-04-08 05:57 | History and Physical Report ---
CHIEF COMPLAINT: Missed dialysis for 2-1/2 weeks. HISTORY OF PRESENT ILLNESS: A 44-year-old -[place] female with known history of hypertension, diabetes, and end-stage renal disease, missed her hemodialysis for the last 2-1/2 weeks. The patient states that she has been coughing and feeling weak and did not go for dialysis. Apparently, her blood pressure has been running high. Also, not compliant with her medications. The patient had a recent hospitalization in February. Shortness of breath on minimal exertion. Orthopnea present. Generalized weakness present. No fever or chills. The patient with right Perm-A-Cath in place since 07/2018. PAST MEDICAL HISTORY: Hypertension, congestive heart failure, diabetes, end-stage renal disease, COPD. PAST SURGICAL HISTORY: Perm-A-Cath and . SOCIAL HISTORY: Does not smoke. FAMILY HISTORY: Hypertension. CURRENT MEDICATIONS: Nifedipine 60 mg q.12, hydralazine 100 mg 3 times a day, clonidine 0.2 p.o. t.i.d. REVIEW OF SYSTEMS: Significant for shortness of breath on minimal exertion and generalized weakness. Orthopnea present. No fever or chills. A 14-point review of systems done. PHYSICAL EXAMINATION: GENERAL: The patient in no acute distress. VITAL SIGNS: Blood pressure is 189/103, temperature 98.2, pulse is 66, respirations are 12. HEENT: Unremarkable. Pupils equal and reactive. NECK: Supple, no lymphadenopathy, no thyromegaly. LUNGS: Clear to auscultation and percussion. Scattered rhonchi. CARDIOVASCULAR: S1, S2 heard. No gallop, no murmur, no rub. Apical impulse in left fifth intercostal space and midclavicular line. ABDOMEN: Soft and benign. No hepatosplenomegaly. No guarding, no rigidity. Hernial orifices are normal. EXTREMITIES: Good pedal pulses. No pedal edema. CENTRAL NERVOUS SYSTEM: Alert and oriented x 4, nonfocal exam. SKIN: Normal. LABORATORY DATA: White count is 7800, H and H is 10.4 and 31.6, platelet count is 222,000. Sodium is 141, potassium is 4.0, chloride is 99.5, bicarbonate is 20, BUN and creatinine is 89 and 9.3, glucose is 155. Hemoglobin A1c is 6.6, phosphorus is 6.3, total bilirubin is 1.3. BNP is 13,189. Total protein is 8.3, albumin is 3.5. EKG shows sinus rhythm, no acute ST-T wave changes. Right axis deviation. Chest x-ray shows unilateral mild pulmonary vascular venous congestion. ASSESSMENT AND PLAN: 1. Congestive heart failure exacerbation secondary to the diastolic failure. The patient to get emergent hemodialysis for increased ultrafiltration. Echocardiogram for ejection fraction. 2. Hypertensive emergency. The patient was given IV hydralazine. The patient to continue on IV hydralazine and home antihypertensives in the form of hydralazine 100 three times a day, clonidine 0.2 p.o. t.i.d. and nifedipine 60 p.o. q.12. 3. Type 2 diabetes, coverage for now. The patient not on any oral hypoglycemics. 4. Volume overload secondary to missed dialysis, again increased ultrafiltration, Nephrology consulted. 5. Chronic obstructive pulmonary disease. DuoNeb on a p.r.n. basis. 6. Noncompliance. The patient counseled about compliance. 7. Deep venous thrombosis prophylaxis, heparin 5000 q.12 and gastrointestinal prophylaxis. In summary, the patient had CHF exacerbation, hypertensive emergency, noncompliance, volume overload. JOB# [id number] CAROLINE/NEELA ROMERO
[2019-04-08 07:10] LABS: Basophils # (Auto) 0.1 K/mm3 (0.0-0.1); Basophils % (Auto) 0.8 % (0.0-1.8); Eosinophils # (Auto) 0.3 K/mm3 (0.0-0.4); Eosinophils % (Auto) 4.1 % (0.0-4.3); Hematocrit 30.9 % (30.3-42.9); Hemoglobin 10.2 gm/dl (10.1-14.3); Lymphocytes # (Auto) 1.4 K/mm3 (1.2-5.4); Mean Corpuscular HGB Conc 33 % (30-34); Mean Corpuscular Volume 87 fl (79-97); Monocytes # (Auto) 0.8 K/mm3 (0.0-0.8); Monocytes % (Auto) 10.6 % (0.0-7.3); Platelet Count 199 K/mm3 (140-440); Red Blood Count 3.57 M/mm3 (3.65-5.03); Red Cell Distribution Width 15.9 % (13.2-15.2)
[2019-04-08 07:28] LABS: Calcium 8.7 mg/dL (8.4-10.2)
[2019-04-08] MEDS: HumaLOG SUB-Q SCH ×2 (07:30→11:30)
[2019-04-08] MEDS: HEPARIN SUB-Q SCH (10:00)
--- NOTE | 2019-04-08 10:47 | Discharge Summary ---
Providers - Providers Date of Admission: 04/07/19 12:15 Attending physician: SEHILA WOOD MD 04/07/19 12:25 Consult to Physician [CONS] Stat Comment: DR JULY L[address] W/DR FONTAINE @1222 Consulting Provider: JIMENA FONTAINE Physician Instructions: esrd Reason For Exam: esrd [facility] Reason for admission: Missed dialysis, ESRD on HD Condition: Stable Hospital course: 44 year old with medical history signficant for HTN, DM type II, end-stage renal disease on hemodialysis via Right IJ perm cath admitted following missed hemodialysis . reports was having diarrhea and was unable to go to dialysis. patient admitted to the floor and get dialysis and discharged home. patient didn't have any complaints. His medications were refilled at the time of DC. counselled to adherent with his dialysis treatment. Disposition: DC-01 TO HOME OR SELFCARE Time spent for discharge: 32 minutes - Discharge Diagnoses (1) Morbid (severe) obesity due to excess calories Status: Acute (2) End-stage renal disease needing dialysis Status: Acute (3) Missed dialysis Status: Acute (4) Volume overload Status: Acute Qualifiers: Hypervolemia type: other Qualified Code(s): E87.79 - Other fluid overload Core Measure Documentation - Palliative Care Palliative Care/ Comfort Measures: Not Applicable - Core Measures Any of the following diagnoses?: none Exam - Constitutional Vitals: Temp Pulse Resp BP Pulse Ox 97.4 F L 72 20 169/88 97 04/08/19 06:13 04/08/19 06:13 04/08/19 06:13 04/08/19 06:13 04/08/19 06:13 General appearance: Present: no acute distress, well-nourished - EENT Eyes: Present: PERRL ENT: hearing intact, clear oral mucosa - Neck Neck: Present: supple, normal ROM - Respiratory Respiratory effort: normal Respiratory: bilateral: CTA - Cardiovascular Heart Sounds: Present: S1 & S2. Absent: rub, click - Extremities Extremities: pulses symmetrical, No edema - Abdominal General gastrointestinal: Present: soft, non-tender, non-distended - Integumentary Integumentary: Present: clear, warm, dry - Musculoskeletal Musculoskeletal: gait normal, strength equal bilaterally - Psychiatric Psychiatric: appropriate mood/affect, intact judgment & insight - Neurologic Neurologic: CNII-XII intact, moves all extremities Plan Activity: no restrictions Weight Bearing Status: Full Weight Bearing Diet: low cholesterol, low salt, diabetic Follow up with: MEG NEWSOME MD [Primary Care Provider] - 3-5 Days Prescriptions: hydrALAZINE [Apresoline TAB] 100 mg PO TID #90 tab cloNIDine [Catapres] 0.2 mg PO TID #90 tablet NIFEdipine XL [Procardia Xl] 60 mg PO Q12HR #60 tablet
--- NOTE | 2019-04-08 11:06 | Progress Note ---
Assessment and Plan - Patient Problems (1) ESRD (end stage renal disease) Current Visit: Yes Status: Acute Plan to address problem: End stage renal disease access: Right IJ perm cath - Hemodialysis today . (2) Volume overload Current Visit: Yes Status: Acute Qualifiers: Hypervolemia type: other Qualified Code(s): E87.79 - Other fluid overload Plan to address problem: Volume overload - patient is very non compliant -missed multiple HD sesssions in the past - HD on 04/07 and 04/08 (3) Diabetes mellitus Current Visit: Yes Status: Chronic Qualifiers: Diabetes mellitus type: type 2 Diabetes mellitus long term acute care registered nurse insulin use: without half-way use Diabetes mellitus complication status: with other specified complication Qualified Code(s): E11.69 - Type 2 diabetes mellitus with other specified complication Plan to address problem: DM type II with complications Ensure medications monitor fingerstick . (4) Anemia Current Visit: No Status: Chronic Plan to address problem: Mild Anemia Hb: 10.2g/dl Monitor CBC. Subjective Interval history: 44 year old with medical history signficant for HTN, DM type II, end-stage renal disease on hemodialysis via Right IJ perm cath admitted following missed hemodialysis . reports was having diarrhea and was unable to go to dialysis I attest I saw the patient on Hemodialysis at 10am denies any fevers or chills. denies nausea or vomitting. Objective - Vital Signs Vital signs: Vital Signs - 12hr 04/07/19 04/08/19 04/08/19 23:20 04:21 06:13 Temperature 97.3 F L 97.4 F L Pulse Rate 79 101 H 72 Respiratory 20 20 Rate Blood Pressure 145/67 173/92 169/88 O2 Sat by Pulse 94 97 Oximetry - General Appearance General appearance: well-developed, well-nourished EENT: ATNC Neck: no JVD Respiratory: Present: Clear to Ascultation Cardiology: regular, S1S2 Gastrointestinal: normal, normoactive bowel sounds Neurologic: no focal deficit, CN 3-12 intact, other (grade 2-3 edema. ) Musculoskeletal: deferred Psychiatric: mood/affect appropriate - Lab 04/08/19 06:16 04/08/19 06:16 Most recent lab results Calcium 8.7 mg/dL (8.4-10.2) 04/08/19 06:16 Phosphorus 6.30 mg/dL (2.5-4.5) H 04/07/19 10:35 - Imaging Chest x-ray: image reviewed (i reviewed CXR with pulmonaryy congestion. ) Medications & Allergies - Medications Allergies/Adverse Reactions: Allergies No Known Allergies Allergy (Verified 03/12/19 12:23) Home Medications: Home Medications Medication Instructions Recorded Confirmed Last Taken Type NIFEdipine XL [Procardia Xl] 60 mg PO Q12HR #60 tablet 04/08/19 Unknown Rx cloNIDine [Catapres] 0.2 mg PO TID #90 tablet 04/08/19 Unknown Rx hydrALAZINE [Apresoline TAB] 100 mg PO TID #90 tab 04/08/19 Unknown Rx Active Medications: Generic Name Dose Route Start Last Admin Trade Name Freq PRN Reason Stop Dose Admin Acetaminophen 650 mg 04/07/19 19:47 Tylenol PO Q4H PRN Pain MILD(1-3)/Fever >100.5/[place] Clonidine HCl 0.2 mg 04/07/19 20:00 04/08/19 04:21 Catapres PO 0.2 mg Q8H WALT Administration Famotidine 10 mg 04/07/19 22:00 04/07/19 23:16 Pepcid PO 10 mg BID WALT Administration Heparin Sodium (Porcine) 5,000 unit 04/07/19 22:00 04/07/19 23:15 Heparin SUB-Q 5,000 unit Q12HR WALT Administration Hydralazine HCl 100 mg 04/07/19 20:00 04/08/19 04:23 Apresoline PO 100 mg Q8H WALT Administration Hydralazine HCl 10 mg 04/08/19 05:51 Apresoline IV Q3H PRN Blood Pressure Hydromorphone HCl 0.5 mg 04/07/19 19:47 Dilaudid IV Q3H PRN Pain , Severe (7-10) Sodium Chloride 100 mls @ 999 mls/hr 04/07/19 12:36 Nacl 0.9% IV AMBER PRN Hypotension Sodium Chloride 100 mls @ 999 mls/hr 04/07/19 12:37 Nacl 0.9% IV AMBER PRN Hypotension Insulin Human Lispro 0 unit 04/08/19 07:30 04/08/19 07:30 Humalog SUB-Q Not Given ACHS [facility] Protocol Metoclopramide HCl 10 mg 04/07/19 19:47 Reglan IV Q6H PRN Nausea And Vomiting Nifedipine 60 mg 04/07/19 22:00 04/07/19 23:16 Procardia Xl PO 60 mg Q12HR WALT Administration Ondansetron HCl 4 mg 04/07/19 19:47 Zofran IV Q8H PRN Nausea And Vomiting Oxycodone/Acetaminophen 1 tab 04/07/19 19:47 Percocet 5/325 PO Q6H PRN Pain, Moderate (4-6) Sodium Chloride 10 ml 04/07/19 22:00 04/07/19 23:16 Sodium Chloride Flush Syringe 10 Ml IV 10 ml BID WALT Administration Sodium Chloride 10 ml 04/07/19 19:47 Sodium Chloride Flush Syringe 10 Ml IV PRN PRN LINE FLUSH
[2019-04-08 12:06] LABS: Hepatitis B Surface Antigen Non-Reactive (Negative); Hepatitis C Virus Antibody Non-Reactive (NonReactive)
[2019-04-08] MEDS: SODIUM CHLORIDE FLUSH SYRINGE 10 ML IV SCH (13:10)
[2019-04-08] MEDS: PEPCID PO SCH ×2 (13:10→14:43)
[2019-04-08] MEDS: PROCARDIA XL PO SCH ×2 (13:10→14:43)
[2019-04-08] MEDS ORDERED: NACL 0.9 (PRIMING MACHINE ONLY DIALYSIS) MC ONE (13:41)
[2019-04-08 14:49] VITALS: BP 159/85
== END 2019-04-08 15:00 | disposition home or self-care (01) ==
LOC: ED 10:16 → 3A 12:15 → INTOOBSV 12:15 → 3A 04-08 00:36
PROVIDERS: ADMIT Internal Medicine; ATTEND Internal Medicine
DX: I13.2 Hypertensive heart and chronic kidney disease with heart failure and with stage 5 chronic kidney disease, or end stage renal disease (principal); J06.9 Acute upper respiratory infection, unspecified; I50.31 Acute diastolic (congestive) heart failure; N18.6 End stage renal disease; I16.1 Hypertensive emergency; E87.79 Other fluid overload; J44.9 Chronic obstructive pulmonary disease, unspecified; E11.22 Type 2 diabetes mellitus with diabetic chronic kidney disease; Z99.2 Dependence on renal dialysis
CPT/HCPCS: 36415; 71045; 80048; 80053; 80074; 82962; 83036; 83880; 84100; 85025; 85027; 93005; 93010; 96372; 99284; G0378; J1644; J7030; G0257

== ENCOUNTER 2019-05-10 11:09 | Inpatient (IN) | payer MEDICARE ==
--- NOTE | 2019-05-10 11:29 | Emergency Department Report ---
Blank Doc - Documentation Documentation: This is a 44-year-old female that presents with missed dialysis x5. Stated has been missed for 1.5 weeks. This initial assessment/diagnostic orders/clinical plan/treatment(s) is/are subject to change based on patient's health status, clinical progression and re- assessment by fellow clinical providers in the ED. Further treatment and workup at subsequent clinical providers discretion. Patient/guardians urged not to elope from the ED as their condition may be serious if not clinically assessed and managed. Initial orders include: 1- Patient sent to MAIN for further evaluation and treatment 2- labs
[2019-05-10 11:51] LABS: Hematocrit 30.6 % (30.3-42.9); Hemoglobin 10.2 gm/dl (10.1-14.3); Mean Corpuscular HGB Conc 33 % (30-34); Mean Corpuscular Hemoglobin 28 pg (28-32); Mean Corpuscular Volume 86 fl (79-97); Platelet Count 242 K/mm3 (140-440); Red Blood Count 3.58 M/mm3 (3.65-5.03); Red Cell Distribution Width 15.8 % (13.2-15.2)
[2019-05-10 12:09] LABS: Calcium 9.4 mg/dL (8.4-10.2)
[2019-05-10 12:34] LABS: Total Cells Counted 100
[2019-05-10 12:35] LABS: Anisocytosis Few; Giant Platelets Rare; Platelet Estimate Consistent w Auto; Poikilocytosis Few; Target Cells 1+
[2019-05-10 12:43] LABS: Albumin 3.3 g/dL (3.9-5); Bilirubin,Direct 0.6 mg/dL (0-0.2)
--- NOTE | 2019-05-10 16:42 | Emergency Department Report ---
HPI - General Chief Complaint: Medical Clearance Time Seen by Provider: 05/10/19 11:26 - HPI HPI: Room 5 The patient is a 44-year-old female presenting with a chief complaint of "I missed dialysis." The patient says she was last dialyzed 04/23/2019. The patient states she is unable to attend dialysis secondary to suffering from gastroenteritis. The patient states several people in her household were affected and had the same symptoms which included nausea vomiting and diarrhea. The patient states her symptoms stopped approximately 3 days ago. Patient states she's noticed increased swelling of both lower extremities for approximately one week. Patient states she has her baseline shortness of breath. Patient denies chest pain. Location: [See above] Duration: [See above] Quality: [See above] Severity: [See above] Modifying factors: [see above] Context: [see above] Mode of transportation: [not driving] ED Past Medical Hx - Past Medical History Hx Hypertension: Yes Hx Congestive Heart Failure: Yes Hx Diabetes: Yes Hx Renal Disease: Yes Hx COPD: Yes - Surgical History Additional Surgical History: Perm cath, - Family History Family history: no significant - Social History Smoking Status: Never Smoker Substance Use Type: None (denies illicit drug use) - Medications Home Medications: Home Medications Medication Instructions Recorded Confirmed Last Taken Type NIFEdipine XL [Procardia Xl] 60 mg PO Q12HR #60 tablet 04/08/19 Unknown Rx cloNIDine [Catapres] 0.2 mg PO TID #90 tablet 04/08/19 Unknown Rx hydrALAZINE [Apresoline TAB] 100 mg PO TID #90 tab 04/08/19 Unknown Rx ED Review of Systems ROS: Stated complaint: DIALYSIS TREATMENT Other details as noted in HPI Constitutional: denies: fever Eyes: denies: eye pain ENT: denies: throat pain Respiratory: shortness of breath Cardiovascular: denies: chest pain Endocrine: no symptoms reported Gastrointestinal: nausea, vomiting, diarrhea. denies: abdominal pain Musculoskeletal: denies: back pain Neurological: denies: headache Physical Exam - Physical Exam Vital Signs: Vital Signs 05/10/19 11:24 Temperature 98.1 F Pulse Rate 94 H Respiratory 18 Rate Blood Pressure 209/114 O2 Sat by Pulse 98 Oximetry Physical Exam: GENERAL: The patient is well-developed well-nourished female lying on stretcher not appearing to be in acute distress. [] HEENT: Normocephalic. Atraumatic. Extraocular motions are intact. Patient has moist mucous membranes. NECK: Supple. Trachea midline CHEST/LUNGS: Clear to auscultation. There is no respiratory distress noted. HEART/CARDIOVASCULAR: Regular. There is no tachycardia. There is no gallop rub or murmur. ABDOMEN: Abdomen is soft, nontender. Patient has normal bowel sounds. There is no abdominal distention. SKIN: There is no rash. There is 2-3+ bilateral lower extremity pitting edema. There is no diaphoresis. NEURO: The patient is awake, alert, and oriented. The patient is cooperative. The patient has normal speech MUSCULOSKELETAL: There is no evidence of acute injury. ED Course Vital Signs 05/10/19 11:24 Temperature 98.1 F Pulse Rate 94 H Respiratory 18 Rate Blood Pressure 209/114 O2 Sat by Pulse 98 Oximetry - Consultations Consultation #1: 05/10/19 17:09 Nephrology paged 05/10/19 17:[address] Noguera- will arrange for hemodialysis in the morning ED Medical Decision Making - Lab Data Result diagrams: 05/10/19 11:30 05/10/19 11:30 Laboratory Tests 05/10/19 05/10/19 05/10/19 11:30 11:30 11:30 WBC 7.1 RBC 3.58 L Hgb 10.2 Hct 30.6 MCV 86 MCH 28 MCHC 33 RDW 15.8 H Plt Count 242 Add Manual Diff Complete Total Counted 100 Seg Neuts % (Manual) 69.0 Band Neutrophils % 0 Lymphocytes % (Manual) 15.0 Reactive Lymphs % (Man) 0 Monocytes % (Manual) 10.0 H Eosinophils % (Manual) 5.0 H Basophils % (Manual) 1.0 Metamyelocytes % 0 Myelocytes % 0 Promyelocytes % 0 Blast Cells % 0 Nucleated RBC % Not Reportable Seg Neutrophils # Man 4.9 Band Neutrophils # 0.0 Lymphocytes # (Manual) 1.1 L Abs React Lymphs (Man) 0.0 Monocytes # (Manual) 0.7 Eosinophils # (Manual) 0.4 Basophils # (Manual) 0.1 Metamyelocytes # 0.0 Myelocytes # 0.0 Promyelocytes # 0.0 Blast Cells # 0.0 WBC Morphology Not Reportable Hypersegmented Neuts Not Reportable Hyposegmented Neuts Not Reportable Hypogranular Neuts Not Reportable Smudge Cells Not Reportable Toxic Granulation Not Reportable Toxic Vacuolation Not Reportable Dohle Bodies Not Reportable Pelger-Huet Anomaly Not Reportable Sara Rods Not Reportable Platelet Estimate Consistent w auto Clumped Platelets Not Reportable Plt Clumps, EDTA Not Reportable Large Platelets Not Reportable Giant Platelets Rare Platelet Satelliting Not Reportable Plt Morphology Comment Not Reportable RBC Morphology Not Reportable Dimorphic RBCs Not Reportable Polychromasia Not Reportable Hypochromasia Not Reportable Poikilocytosis Few Anisocytosis Few Microcytosis Not Reportable Macrocytosis Not Reportable Spherocytes Not Reportable Pappenheimer Bodies Not Reportable Sickle Cells Not Reportable Target Cells 1+ Tear Drop Cells Not Reportable Ovalocytes Not Reportable Helmet Cells Not Reportable [place] Bodies Not Reportable Morgan Rings Not Reportable Raciel Cells Not Reportable Bite Cells Not Reportable Crenated Cell Not Reportable Elliptocytes Not Reportable Acanthocytes (Spur) Not Reportable Rouleaux Not Reportable Hemoglobin C Crystals Not Reportable Schistocytes Not Reportable Malaria parasites Not Reportable Adarsh Bodies Not Reportable Hem Pathologist Commnt No Sodium 136 L Potassium 5.0 Chloride 99.2 Carbon Dioxide 18 L Anion Gap 24 BUN 66 H Creatinine 8.3 H Estimated GFR 6 BUN/Creatinine Ratio 8 Glucose 139 H Calcium 9.4 Total Bilirubin 1.20 Direct Bilirubin 0.6 H Indirect Bilirubin 0.6 AST 40 ALT 14 Alkaline Phosphatase 208 H Total Protein 8.6 H Albumin 3.3 L Albumin/Globulin Ratio 0.6 - Radiology Data Radiology results: image reviewed (chest x-ray) interpreted by me: Chest x-ray-no focal infiltrate, no pneumothorax - Differential Diagnosis end-stage renal disease Critical care attestation.: If time is entered above; I have spent that time in minutes in the direct care of this critically ill patient, excluding procedure time. ED Disposition Clinical Impression: End-stage renal disease needing dialysis, Peripheral edema Disposition: OP ADMIT IP TO THIS HOSP Is pt being admited?: Yes Does the pt Need Aspirin: Yes Condition: Fair Time of Disposition: 17:21 (hospitalist paged (Dr Arizmendi))
[2019-05-10] MEDS ORDERED: CATAPRES PO ONE (16:58)
[2019-05-10] MEDS ORDERED: ASPIRIN PO ONE (17:22)
--- NOTE | 2019-05-10 17:31 | XRay Report ---
CHEST 1 VIEW INDICATION / CLINICAL INFORMATION: shortness of breath. COMPARISON: 04/07/2019 FINDINGS: SUPPORT DEVICES: Stable, satisfactory device positioning. HEART / MEDIASTINUM: Mild stable enlargement of the cardiac silhouette with pulmonary venous hyperten shayy. LUNGS / PLEURA: Interstitial markings are slightly prominent. No pneumothorax. ADDITIONAL FINDINGS: No significant additional findings. IMPRESSION: 1. Mild interstitial pulmonary edema. Signer Name: Agustín Denson MD Signed: 05/10/2019 5:27 PM Workstation Name: [id number]
[2019-05-10] MEDS ORDERED: ASPIRIN ONE (17:56)
--- NOTE | 2019-05-10 23:19 | History and Physical Report ---
History of Present Illness Date of examination: 05/10/19 Date of admission: 05/10/19 17:23 Chief complaint: Missed hemodialysis for about 10 days History of present illness: 44-year-old -Stateless female with history of hypertension and end-stage renal disease missed dialysis since 04/23/2019. Patient says she is not able to attend dialysis because of vomiting. Her whole family was affected by acute viral gastroenteritis. Her symptoms started about 3 days ago. She has increasing shortness of breath and swelling in both lower extremities. Has orthopnea. Also class IV NYHA symptoms. No chest pain. Past Medical History Hypertension: Yes Congestive Heart Failure: Yes Diabetes: Yes Renal Disease: Yes COPD: Yes Surgical History Additional Surgical History: Perm cath, Family History Family history: no significant Social History Smoking Status: Never Smoker Substance Use Type: None (denies illicit drug use) Medications Home Medications: Home Medications Medication Instructions Recorded Confirmed Last Taken Type NIFEdipine XL [Procardia Xl] 60 mg PO Q12HR #60 tablet 04/08/19 Unknown Rx cloNIDine [Catapres] 0.2 mg PO TID #90 tablet 04/08/19 Unknown Rx hydrALAZINE [Apresoline TAB] 100 mg PO TID #90 tab 04/08/19 Unknown Rx Review of Systems ROS: Stated complaint: DIALYSIS TREATMENT Other details as noted in HPI Constitutional: denies: fever Eyes: denies: eye pain ENT: denies: throat pain Respiratory: shortness of breath Cardiovascular: denies: chest pain Endocrine: no symptoms reported Gastrointestinal: nausea, vomiting, diarrhea. denies: abdominal pain Musculoskeletal: denies: back pain Neurological: denies: headache Medications and Allergies Allergies Allergy/AdvReac Type Severity Reaction Status Date / Time No Known Allergies Allergy Verified 03/12/19 12:23 Home Medications Medication Instructions Recorded Confirmed Last Taken Type NIFEdipine XL [Procardia Xl] 60 mg PO Q12HR #60 tablet 04/08/19 Unknown Rx cloNIDine [Catapres] 0.2 mg PO TID #90 tablet 04/08/19 Unknown Rx hydrALAZINE [Apresoline TAB] 100 mg PO TID #90 tab 04/08/19 Unknown Rx Exam - Constitutional Vitals: Temp Pulse Resp BP Pulse Ox 98.1 F 63 15 154/88 96 05/10/19 11:24 05/10/19 20:30 05/10/19 20:30 05/10/19 20:30 05/10/19 20:30 General appearance: Present: mild distress, well-nourished - EENT Eyes: Present: PERRL ENT: hearing intact, clear oral mucosa - Neck Neck: Present: supple, normal ROM - Respiratory Respiratory effort: normal Respiratory: bilateral: CTA - Cardiovascular Heart rate: 88 Rhythm: regular (88) Heart Sounds: Present: S1 & S2. Absent: rub, click - Extremities Extremities: no ischemia, pulses symmetrical, No edema Extremity abnormal: edema (3+) Peripheral Pulses: within normal limits - Abdominal General gastrointestinal: Present: soft, non-tender, non-distended, normal bowel sounds Female genitourinary: Present: normal - Integumentary Integumentary: Present: clear, warm, dry - Musculoskeletal Musculoskeletal: gait normal, strength equal bilaterally - Psychiatric Psychiatric: appropriate mood/affect, intact judgment & insight - Neurologic Neurologic: CNII-XII intact, moves all extremities - Allied Health Allied health notes reviewed: nursing, case management Results - Labs CBC & Chem 7: 05/10/19 11:30 05/10/19 11:30 Labs: Laboratory Last Values WBC 7.1 K/mm3 (4.5-11.0) 05/10/19 11:30 RBC 3.58 M/mm3 (3.65-5.03) L 05/10/19 11:30 Hgb 10.2 gm/dl (10.1-14.3) 05/10/19 11:30 Hct 30.6 % (30.3-42.9) 05/10/19 11:30 MCV 86 fl (79-97) 05/10/19 11:30 MCH 28 pg (28-32) 05/10/19 11:30 MCHC 33 % (30-34) 05/10/19 11:30 RDW 15.8 % (13.2-15.2) H 05/10/19 11:30 Plt Count 242 K/mm3 (140-440) 05/10/19 11:30 Add Manual Diff Complete 05/10/19 11:30 Total Counted 100 05/10/19 11:30 Seg Neuts % (Manual) 69.0 % (40.0-70.0) 05/10/19 11:30 0 % 05/10/19 11:30 15.0 % (13.4-35.0) 05/10/19 11:30 Reactive Lymphs % (Man) 0 % 05/10/19 11:30 10.0 % (0.0-7.3) H 05/10/19 11:30 5.0 % (0.0-4.3) H 05/10/19 11:30 1.0 % (0.0-1.8) 05/10/19 11:30 0 % 05/10/19 11:30 0 % 05/10/19 11:30 0 % 05/10/19 11:30 0 % 05/10/19 11:30 Nucleated RBC % Not Reportable 05/10/19 11:30 Seg Neutrophils # Man 4.9 K/mm3 (1.8-7.7) 05/10/19 11:30 Band Neutrophils # 0.0 K/mm3 05/10/19 11:30 1.1 K/mm3 (1.2-5.4) L 05/10/19 11:30 Abs React Lymphs (Man) 0.0 K/mm3 05/10/19 11:30 0.7 K/mm3 (0.0-0.8) 05/10/19 11:30 0.4 K/mm3 (0.0-0.4) 05/10/19 11:30 0.1 K/mm3 (0.0-0.1) 05/10/19 11:30 0.0 K/mm3 05/10/19 11:30 0.0 K/mm3 05/10/19 11:30 0.0 K/mm3 05/10/19 11:30 Blast Cells # 0.0 K/mm3 05/10/19 11:30 WBC Morphology Not Reportable 05/10/19 11:30 Hypersegmented Neuts Not Reportable 05/10/19 11:30 Hyposegmented Neuts Not Reportable 05/10/19 11:30 Hypogranular Neuts Not Reportable 05/10/19 11:30 Not Reportable 05/10/19 11:30 Not Reportable 05/10/19 11:30 Not Reportable 05/10/19 11:30 Not Reportable 05/10/19 11:30 Not Reportable 05/10/19 11:30 Not Reportable 05/10/19 11:30 Consistent w auto 05/10/19 11:30 Not Reportable 05/10/19 11:30 Plt Clumps, EDTA Not Reportable 05/10/19 11:30 Not Reportable 05/10/19 11:30 Rare 05/10/19 11:30 Not Reportable 05/10/19 11:30 Plt Morphology Comment Not Reportable 05/10/19 11:30 RBC Morphology Not Reportable 05/10/19 11:30 Dimorphic RBCs Not Reportable 05/10/19 11:30 Not Reportable 05/10/19 11:30 Not Reportable 05/10/19 11:30 Few 05/10/19 11:30 Few 05/10/19 11:30 Not Reportable 05/10/19 11:30 Not Reportable 05/10/19 11:30 Not Reportable 05/10/19 11:30 Not Reportable 05/10/19 11:30 Not Reportable 05/10/19 11:30 1+ 05/10/19 11:30 Not Reportable 05/10/19 11:30 Not Reportable 05/10/19 11:30 Not Reportable 05/10/19 11:30 Not Reportable 05/10/19 11:30 Not Reportable 05/10/19 11:30 Not Reportable 05/10/19 11:30 Not Reportable 05/10/19 11:30 Not Reportable 05/10/19 11:30 Not Reportable 05/10/19 11:30 Acanthocytes (Spur) Not Reportable 05/10/19 11:30 Rouleaux Not Reportable 05/10/19 11:30 Not Reportable 05/10/19 11:30 Not Reportable 05/10/19 11:30 Not Reportable 05/10/19 11:30 Not Reportable 05/10/19 11:30 Hem Pathologist Commnt No 05/10/19 11:30 Sodium 136 mmol/L (137-145) L 05/10/19 11:30 Potassium 5.0 mmol/L (3.6-5.0) 05/10/19 11:30 Chloride 99.2 mmol/L (98-107) 05/10/19 11:30 Carbon Dioxide 18 mmol/L (22-30) L 05/10/19 11:30 24 mmol/L 05/10/19 11:30 BUN 66 mg/dL (7-17) H 05/10/19 11:30 8.3 mg/dL (0.7-1.2) H 05/10/19 11:30 Estimated GFR 6 ml/min 05/10/19 11:30 8 % 05/10/19 11:30 Glucose 139 mg/dL (65-100) H 05/10/19 11:30 Calcium 9.4 mg/dL (8.4-10.2) 05/10/19 11:30 1.20 mg/dL (0.1-1.2) 05/10/19 11:30 0.6 mg/dL (0-0.2) H 05/10/19 11:30 0.6 mg/dL 05/10/19 11:30 AST 40 units/L (5-40) 05/10/19 11:30 ALT 14 units/L (7-56) 05/10/19 11:30 208 units/L (35-129) H 05/10/19 11:30 8.6 g/dL (6.3-8.2) H 05/10/19 11:30 3.3 g/dL (3.9-5) L 05/10/19 11:30 0.6 % 05/10/19 11:30 Short CBC 05/10/19 Range/Units 11:30 WBC 7.1 (4.5-11.0) K/mm3 Hgb 10.2 (10.1-14.3) gm/dl Hct 30.6 (30.3-42.9) % Plt Count 242 (140-440) K/mm3 [facility] 05/10/19 11:30 Sodium 136 L Potassium 5.0 Chloride 99.2 Carbon Dioxide 18 L BUN 66 H Creatinine 8.3 H Glucose 139 H Calcium 9.4 Liver Function 05/10/19 Range/Units 11:30 Total Bilirubin 1.20 (0.1-1.2) mg/dL Direct Bilirubin 0.6 H (0-0.2) mg/dL AST 40 (5-40) units/L ALT 14 (7-56) units/L Alkaline Phosphatase 208 H (35-129) units/L Albumin 3.3 L (3.9-5) g/dL - Imaging and Cardiology Chest x-ray: report reviewed Imaging and Cardiology: Chest x-ray IMPRESSION: 1. Mild interstitial pulmonary edema. Assessment and Plan Advance Directives: Yes (full code) VTE prophylaxis?: Chemical Plan of care discussed with patient/family: Yes - Patient Problems (1) Acute on chronic heart failure with normal ejection fraction Current Visit: No Status: Acute Plan to address problem: Secondary to volume overload and missed dialysis Taryn echocardiogram for ejection fraction and valve function Needs hemodialysis for INCREASED ultrafiltration (2) End-stage renal disease needing dialysis Current Visit: Yes Status: Acute Plan to address problem: Needs emergent hemodialysis for increased ultrafiltration (3) Hypertension Current Visit: Yes Status: Chronic Qualifiers: Hypertension type: essential hypertension Qualified Code(s): I10 - Essential (primary) hypertension Plan to address problem: Continue antihypertensives and adjust medications (4) T2DM (type 2 diabetes mellitus) Current Visit: Yes Status: Chronic Qualifiers: Diabetes mellitus longterm insulin use: without longterm use Plan to address problem: Coverage only Check hemoglobin A1c (5) Malnutrition Current Visit: Yes Status: Chronic Qualifiers: Protein-calorie malnutrition severity: mild Plan to address problem: Dietary supplements ordered (6) DVT prophylaxis Current Visit: Yes Status: Acute Plan to address problem: Heparin 5000 every 12 and GI prophylaxis
[2019-05-10] MEDS ORDERED: SODIUM CHLORIDE FLUSH SYRINGE 10 ML IV PRN (23:20)
[2019-05-10] MEDS ORDERED: PERCOCET 5/325 PO PRN (23:20)
[2019-05-10] MEDS ORDERED: REGLAN IV PRN ×2 (23:20→23:43)
[2019-05-10] MEDS ORDERED: TYLENOL PO PRN (23:20)
[2019-05-10] MEDS ORDERED: DILAUDID IV PRN (23:20)
[2019-05-10] MEDS ORDERED: ZOFRAN IV PRN (23:20)
[2019-05-11] MEDS: HEPARIN SUB-Q SCH ×2 (04:42→10:00)
[2019-05-11] MEDS: PROCARDIA XL PO SCH ×2 (04:42→09:37)
[2019-05-11] MEDS: HumaLOG SUB-Q SCH ×2 (07:30→11:30)
[2019-05-11] MEDS ORDERED: APRESOLINE PO SCH (08:00)
[2019-05-11] MEDS ORDERED: CATAPRES PO SCH (08:00)
[2019-05-11] MEDS ORDERED: SODIUM CHLORIDE FLUSH SYRINGE 10 ML IV SCH (10:00)
[2019-05-11] MEDS ORDERED: PEPCID PO SCH (10:00)
[2019-05-11] MEDS ORDERED: CATHFLO IV STA (12:40)
[2019-05-11] MEDS ORDERED: CATHFLO ONE (12:45)
[2019-05-11] MEDS ORDERED: WATER FOR INJ Sterile (PF) 10 ML ONE (12:45)
[2019-05-11] MEDS ORDERED: NACL 0.9 (PRIMING MACHINE ONLY DIALYSIS) MC ONE (14:22)
[2019-05-11 14:48] LABS: Albumin 3.6 g/dL (3.9-5); Calcium 9.1 mg/dL (8.4-10.2)
[2019-05-11 15:16] LABS: Hepatitis A Antibody IgM Non-Reactive (NonReactive); Hepatitis B Core IgM Non-Reactive (NonReactive); Hepatitis B Surface Antigen Non-Reactive (Negative); Hepatitis C Virus Antibody Non-Reactive (NonReactive)
--- NOTE | 2019-05-11 15:39 | Consultation ---
History of Present Illness - History of Present Illness 44-year-old lady with medical history significant for hypertension, congestive heart failure, that is metastatic to, end-stage renal disease on hemodialysis at the [facility] presented to the emergency room with missed hemodialysis last hemodialysis was last Friday. She denies any orthpnea or PND . She denies any nausea and vomitting . She has signficant lower extremity edema. She denies any abdominal pain. Denies any chest pain , cough. Medications and Allergies Allergies Allergy/AdvReac Type Severity Reaction Status Date / Time No Known Allergies Allergy Verified 03/12/19 12:23 Home Medications Medication Instructions Recorded Confirmed Last Taken Type NIFEdipine XL [Procardia Xl] 60 mg PO Q12HR #60 tablet 04/08/19 Unknown Rx cloNIDine [Catapres] 0.2 mg PO TID #90 tablet 04/08/19 Unknown Rx hydrALAZINE [Apresoline TAB] 100 mg PO TID #90 tab 04/08/19 Unknown Rx Active Meds: Active Medications Acetaminophen (Tylenol) 650 mg PO Q4H PRN PRN Reason: Pain MILD(1-3)/Fever >100.5/[place] Clonidine HCl (Catapres) 0.2 mg PO TID [facility] Last Admin: 05/11/19 08:34 Dose: 0.2 mg Documented by: Famotidine (Pepcid) 10 mg PO BID [facility] Last Admin: 05/11/19 09:37 Dose: 10 mg Documented by: Heparin Sodium (Porcine) (Heparin) 5,000 unit SUB-Q Q12HR [facility] Last Admin: 05/11/19 10:00 Dose: Not Given Documented by: Hydralazine HCl (Apresoline) 100 mg PO TID [facility] Last Admin: 05/11/19 08:34 Dose: 100 mg Documented by: Hydromorphone HCl (Dilaudid) 0.5 mg IV Q3H PRN PRN Reason: Pain , Severe (7-10) Last Admin: 05/11/19 14:25 Dose: 0.5 mg Documented by: Insulin Human Lispro (Humalog) 0 unit SUB-Q [facility]; Protocol Last Admin: 05/11/19 11:30 Dose: Not Given Documented by: Metoclopramide HCl (Reglan) 5 mg IV Q6H PRN PRN Reason: Nausea And Vomiting Nifedipine (Procardia Xl) 60 mg PO Q12HR [facility] Last Admin: 05/11/19 09:37 Dose: 60 mg Documented by: Ondansetron HCl (Zofran) 4 mg IV Q8H PRN PRN Reason: Nausea And Vomiting Last Admin: 05/11/19 14:25 Dose: 4 mg Documented by: Oxycodone/Acetaminophen (Percocet 5/325) 1 tab PO Q6H PRN PRN Reason: Pain, Moderate (4-6) Sodium Chloride (Sodium Chloride Flush Syringe 10 Ml) 10 ml IV BID [facility] Last Admin: 05/11/19 09:37 Dose: 10 ml Documented by: Sodium Chloride (Sodium Chloride Flush Syringe 10 Ml) 10 ml IV PRN PRN PRN Reason: LINE FLUSH Review of Systems Constitutional: weight gain, no fever, no chills Cardiovascular: no chest pain, no orthopnea Respiratory: shortness of breath Gastrointestinal: no abdominal pain, no nausea, no vomiting Genitourinary Female: no dyspareunia, no dysmenorrhea Neurological: no head injury, no transient paralysis Psychiatric: no anxiety, no memory loss Endocrine: no cold intolerance, no heat intolerance Hematologic/Lymphatic: no easy bruising Exam - Vital Signs Vital signs: Vital Signs Temp Pulse Resp BP Pulse Ox 98.1 F 94 H 18 209/114 98 05/10/19 11:24 05/10/19 11:24 05/10/19 11:24 05/10/19 11:24 05/10/19 11:24 - General Appearance General appearance: well-developed, well-nourished EENT: ATNC, PERRL, mucous membranes moist Neck: Present: neck supple Respiratory: Decreased Breath Sounds Heart: regular, S1S2 Gastrointestinal: Present: normal, normoactive bowel sounds Integumentary: no rash Neurologic: no focal deficit, alert and oriented x3, CN 3-12 intact Musculoskeletal: Present: other (grade 3 edema) Psychiatric: mood/affect appropriate Results - Lab Results 05/10/19 11:30 05/11/19 13:45 Most recent lab results Calcium 9.1 mg/dL (8.4-10.2) 05/11/19 13:45 - Image Kidney/bladder ultrasound: image reviewed Assessment and Plan - Patient Problems (1) End-stage renal disease needing dialysis Current Visit: Yes Status: Acute Plan to address problem: End-stage renal disease on dialysis Access: Right IJ PermCath Difficulty with access alteplase was placed with improvement Continue dialysis (2) Hypertension Current Visit: Yes Status: Chronic Qualifiers: Hypertension type: essential hypertension Qualified Code(s): I10 - Roderick myles (primary) hypertension Plan to address problem: Hypertension uncontrolled resume all medications optimize fluid status (3) T2DM (type 2 diabetes mellitus) Current Visit: Yes Status: Chronic Qualifiers: 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
--- NOTE | 2019-05-11 17:18 | Progress Note ---
Assessment and Plan Assessment and plan: 44-year-old -[place] female with history of hypertension and end-stage renal disease missed dialysis since 04/23/2019. Patient says she is not able to attend dialysis because of vomiting. Her whole family was affected by acute viral gastroenteritis. Her symptoms started about 3 days ago. She has increasing shortness of breath and swelling in both lower extremities. Has orthopnea. Also class IV NYHA symptoms. No chest pain. (1) Acute on chronic heart failure with normal ejection fraction Current Visit: No Status: Acute Plan to address problem: Secondary to volume overload and missed dialysis Taryn echocardiogram for ejection fraction and valve function Needs hemodialysis for INCREASED ultrafiltration Improved (2) End-stage renal disease needing dialysis Current Visit: Yes Status: Acute Plan to address problem: Needs emergent hemodialysis for increased ultrafiltration (3) Hypertension Current Visit: Yes Status: Chronic Qualifiers: Hypertension type: essential hypertension Qualified Code(s): I10 - Essential (primary) hypertension Plan to address problem: Continue antihypertensives and adjust medications (4) T2DM (type 2 diabetes mellitus) Current Visit: Yes Status: Chronic Qualifiers: 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 She informs me that she needs to leave after dialsysis due to having an autistic child at home and no one to care for the child. she still with cough and appears weak to me but states that she is no longer nauseated, the later she feels was viral and affected everyone in the household Hospitalist Physical - Physical exam Narrative exam: General appearance: Present: mild distress, well-nourished, LETHARGIC - EENT Eyes: Present: PERRL ENT: hearing intact, clear oral mucosa - Neck Neck: Present: supple, normal ROM - Respiratory Respiratory effort: normal Respiratory: bilateral: CTA - Cardiovascular Heart Sounds: Present: S1 & S2. Absent: rub, click - Extremities Extremities: no ischemia, pulses symmetrical, No edema Extremity abnormal: edema (3+) Peripheral Pulses: within normal limits - Abdominal General gastrointestinal: Present: soft, non-tender, non-distended, normal bowel sounds Female genitourinary: Present: normal - Integumentary Integumentary: Present: clear, warm, dry - Musculoskeletal Musculoskeletal: gait normal, strength equal bilaterally - Psychiatric Psychiatric: appropriate mood/affect, intact judgment & insight - Neurologic Neurologic: CNII-XII intact, moves all extremities - Allied Health Allied health notes reviewed: nursing, case management - Constitutional Vitals: Temp Pulse Resp BP Pulse Ox 98.5 F 88 20 129/65 97 05/11/19 11:45 05/11/19 11:45 05/11/19 11:45 05/11/19 11:45 05/11/19 11:45 General appearance: Present: mild distress, well-nourished Results - Labs CBC & Chem 7: 05/10/19 11:30 05/11/19 13:45 Labs: Laboratory Last Values WBC 7.1 K/mm3 (4.5-11.0) 05/10/19 11:30 RBC 3.58 M/mm3 (3.65-5.03) L 05/10/19 11:30 Hgb 10.2 gm/dl (10.1-14.3) 05/10/19 11:30 Hct 30.6 % (30.3-42.9) 05/10/19 11:30 MCV 86 fl (79-97) 05/10/19 11:30 MCH 28 pg (28-32) 05/10/19 11:30 MCHC 33 % (30-34) 05/10/19 11:30 RDW 15.8 % (13.2-15.2) H 05/10/19 11:30 Plt Count 242 K/mm3 (140-440) 05/10/19 11:30 Add Manual Diff Complete 05/10/19 11:30 Total Counted 100 05/10/19 11:30 Seg Neuts % (Manual) 69.0 % (40.0-70.0) 05/10/19 11:30 0 % 05/10/19 11:30 15.0 % (13.4-35.0) 05/10/19 11:30 Reactive Lymphs % (Man) 0 % 05/10/19 11:30 10.0 % (0.0-7.3) H 05/10/19 11:30 5.0 % (0.0-4.3) H 05/10/19 11:30 1.0 % (0.0-1.8) 05/10/19 11:30 0 % 05/10/19 11:30 0 % 05/10/19 11:30 0 % 05/10/19 11:30 0 % 05/10/19 11:30 Nucleated RBC % Not Reportable 05/10/19 11:30 Seg Neutrophils # Man 4.9 K/mm3 (1.8-7.7) 05/10/19 11:30 Band Neutrophils # 0.0 K/mm3 05/10/19 11:30 1.1 K/mm3 (1.2-5.4) L 05/10/19 11:30 Abs React Lymphs (Man) 0.0 K/mm3 05/10/19 11:30 0.7 K/mm3 (0.0-0.8) 05/10/19 11:30 0.4 K/mm3 (0.0-0.4) 05/10/19 11:30 0.1 K/mm3 (0.0-0.1) 05/10/19 11:30 0.0 K/mm3 05/10/19 11:30 0.0 K/mm3 05/10/19 11:30 0.0 K/mm3 05/10/19 11:30 Blast Cells # 0.0 K/mm3 05/10/19 11:30 WBC Morphology Not Reportable 05/10/19 11:30 Hypersegmented Neuts Not Reportable 05/10/19 11:30 Hyposegmented Neuts Not Reportable 05/10/19 11:30 Hypogranular Neuts Not Reportable 05/10/19 11:30 Not Reportable 05/10/19 11:30 Not Reportable 05/10/19 11:30 Not Reportable 05/10/19 11:30 Not Reportable 05/10/19 11:30 Not Reportable 05/10/19 11:30 Not Reportable 05/10/19 11:30 Consistent w auto 05/10/19 11:30 Not Reportable 05/10/19 11:30 Plt Clumps, EDTA Not Reportable 05/10/19 11:30 Not Reportable 05/10/19 11:30 Rare 05/10/19 11:30 Not Reportable 05/10/19 11:30 Plt Morphology Comment Not Reportable 05/10/19 11:30 RBC Morphology Not Reportable 05/10/19 11:30 Dimorphic RBCs Not Reportable 05/10/19 11:30 Not Reportable 05/10/19 11:30 Not Reportable 05/10/19 11:30 Few 05/10/19 11:30 Few 05/10/19 11:30 Not Reportable 05/10/19 11:30 Not Reportable 05/10/19 11:30 Not Reportable 05/10/19 11:30 Not Reportable 05/10/19 11:30 Not Reportable 05/10/19 11:30 1+ 05/10/19 11:30 Not Reportable 05/10/19 11:30 Not Reportable 05/10/19 11:30 Not Reportable 05/10/19 11:30 Not Reportable 05/10/19 11:30 Not Reportable 05/10/19 11:30 Not Reportable 05/10/19 11:30 Not Reportable 05/10/19 11:30 Not Reportable 05/10/19 11:30 Not Reportable 05/10/19 11:30 Acanthocytes (Spur) Not Reportable 05/10/19 11:30 Rouleaux Not Reportable 05/10/19 11:30 Not Reportable 05/10/19 11:30 Not Reportable 05/10/19 11:30 Not Reportable 05/10/19 11:30 Not Reportable 05/10/19 11:30 Hem Pathologist Commnt No 05/10/19 11:30 Sodium 139 mmol/L (137-145) 05/11/19 13:45 Potassium 4.0 mmol/L (3.6-5.0) 05/11/19 13:45 Chloride 99.8 mmol/L (98-107) 05/11/19 13:45 Carbon Dioxide 21 mmol/L (22-30) L 05/11/19 13:45 22 mmol/L 05/11/19 13:45 BUN 66 mg/dL (7-17) H 05/11/19 13:45 8.1 mg/dL (0.7-1.2) H 05/11/19 13:45 Estimated GFR 7 ml/min 05/11/19 13:45 8 % 05/11/19 13:45 Glucose 182 mg/dL (65-100) H 05/11/19 13:45 POC Glucose 198 (70-105) H 05/11/19 11:51 6.5 % (4-6) H 05/10/19 23:50 Calcium 9.1 mg/dL (8.4-10.2) 05/11/19 13:45 1.10 mg/dL (0.1-1.2) 05/11/19 13:45 0.6 mg/dL (0-0.2) H 05/10/19 11:30 0.6 mg/dL 05/10/19 11:30 AST 18 units/L (5-40) 05/11/19 13:45 ALT 12 units/L (7-56) 05/11/19 13:45 217 units/L (35-129) H 05/11/19 13:45 7.9 g/dL (6.3-8.2) 05/11/19 13:45 3.6 g/dL (3.9-5) L 05/11/19 13:45 0.8 % 05/11/19 13:45 Hepatitis A IgM Ab Non-reactive (NonReactive) 05/11/19 13:45 Hep Bs Antigen Non-reactive (Negative) 05/11/19 13:45 Hep B Core IgM Ab Non-reactive (NonReactive) 05/11/19 13:45 Non-reactive (NonReactive) 05/11/19 13:45 Active Medications - Current Medications Current Medications: Generic Name Dose Route Start Last Admin Trade Name Freq PRN Reason Stop Dose Admin Acetaminophen 650 mg 05/10/19 23:20 Tylenol PO Q4H PRN Pain MILD(1-3)/Fever >100.5/[place] Clonidine HCl 0.2 mg 05/11/19 08:00 05/11/19 08:34 Catapres PO 0.2 mg TID WALT Administration Famotidine 10 mg 05/11/19 10:00 05/11/19 09:37 Pepcid PO 10 mg BID WALT Administration Heparin Sodium (Porcine) 5,000 unit 05/10/19 23:45 05/11/19 10:00 Heparin SUB-Q Not Given Q12HR [facility] Hydralazine HCl 100 mg 05/11/19 08:00 05/11/19 08:34 Apresoline PO 100 mg TID WALT Administration Hydromorphone HCl 0.5 mg 05/10/19 23:20 05/11/19 14:25 Dilaudid IV 0.5 mg Q3H PRN Administration Pain , Severe (7-10) Insulin Human Lispro 0 unit 05/11/19 07:30 05/11/19 11:30 Humalog SUB-Q Not Given ACHS [facility] Protocol Metoclopramide HCl 5 mg 05/10/19 23:43 Reglan IV Q6H PRN Nausea And Vomiting Nifedipine 60 mg 05/10/19 23:45 05/11/19 09:37 Procardia Xl PO 60 mg Q12HR WALT Administration Ondansetron HCl 4 mg 05/10/19 23:20 05/11/19 14:25 Zofran IV 4 mg Q8H PRN Administration Nausea And Vomiting Oxycodone/Acetaminophen 1 tab 05/10/19 23:20 Percocet 5/325 PO Q6H PRN Pain, Moderate (4-6) Sodium Chloride 10 ml 05/11/19 10:00 05/11/19 09:37 Sodium Chloride Flush Syringe 10 Ml IV 10 ml BID WALT Administration Sodium Chloride 10 ml 05/10/19 23:20 Sodium Chloride Flush Syringe 10 Ml IV PRN PRN LINE FLUSH Nutrition/Malnutrition Assess - Dietary Evaluation Nutrition/Malnutrition Findings: Nutrition Notes Start: 05/11/19 11:16 Freq: Status: Active Protocol: Document 05/11/19 11:16 RM (Rec: 05/11/19 11:30 RM [id number]) Nutrition Notes Need for Assessment generated from: Low BMI Initial or Follow up Assessment Current Diagnosis COPD,Diabetes,Hypertension, Heart Failure Other Pertinent Diagnosis ESRD on HD Current Diet Renal Labs/Tests K 5 Pertinent Medications Reviewed Height 5 ft 2.5 in Weight 145.4 kg Globe Body Weight (kg) 51.13 BMI 57.6 Subjective/Other Information Screened for low BMI. Pt does not appear to have BMI of 0.5. Pt stated that she is 5 ft 2 1/2 in. Pt unsure of dry wt. Weighed pt on bedscale and receieved wt of 145.4 kg. Corrected in record accordingly. Pt stated that she has no appetite and that she eats bites of her meals. Percent of energy/protein needs met: 0%/0% Burn Absent Trauma Absent #1 Nutrition Diagnosis Inadequate oral intake Etiology lack of appetite As Evidenced by Signs and Symptoms pt statement that she eats bites of her meals Is patient on ventilator? No Is Patient Ambulatory and/or Out of Bed Yes [facility] [ 2697.747 [id number]] Kcal/Kg value to use for calculation 15 Approximate Energy Requirements Using 2181 kcal/Kg Calculation Used for Recommendations Kcal/kg Additional Notes Protein Needs: 118-127g (1.2-1 .3g/kg 98 kg adjBW) Fluid Needs: 1 ml/kcal Nutrition Intervention Change Diet Order: Continue current Add Supplement/Snack (indicate name/kcal Nepro 1 daily /protein ) Provides kCal: 425 Provides Protein (gm) 19 Goal #1 Meet at least 75% of calorie and protein needs via PO and ONS intakes Anticipated Discharge Needs: Renal diet Follow-Up By: 05/13/19 Additional Comments Follow for PO and ONS intakes
[2019-05-11 18:24] VITALS: BP 169/83
--- NOTE | 2019-05-12 08:55 | Discharge Summary ---
Providers - Providers Date of Admission: 05/10/19 17:23 Attending physician: ANTONIO QUINONES MD 05/10/19 23:21 Consult to Physician [CONS] Routine Comment: Consulting Provider: RANDY MCKEON Physician Instructions: Reason For Exam: ESRD [facility] Reason for admission: CHF Condition: Stable Hospital course: 44-year-old -[place] female with history of hypertension and end-stage renal disease missed dialysis since 04/23/2019. Patient says she is not able to attend dialysis because of vomiting. Her whole family was affected by acute viral gastroenteritis. Her symptoms started about 3 days ago. She has increasing shortness of breath and swelling in both lower extremities. Has orthopnea. Also class IV NYHA symptoms. No chest pain. BELOW WAS TREATMENT PLAN IN PROCESS BUT THE PATIENT LEFT AMA (1) Acute on chronic heart failure with normal ejection fraction Current Visit: No Status: Acute Plan to address problem: Secondary to volume overload and missed dialysis Taryn echocardiogram for ejection fraction and valve function Needs hemodialysis for INCREASED ultrafiltration Improved (2) End-stage renal disease needing dialysis Current Visit: Yes Status: Acute Plan to address problem: Needs emergent hemodialysis for increased ultrafiltration (3) Hypertension Current Visit: Yes Status: Chronic Qualifiers: Hypertension type: essential hypertension Qualified Code(s): I10 - Essential (primary) hypertension Plan to address problem: Continue antihypertensives and adjust medications (4) T2DM (type 2 diabetes mellitus) Current Visit: Yes Status: Chronic Qualifiers: Diabetes mellitus fdc insulin use: without fdc use Plan to address problem: Coverage only Check hemoglobin A1c (5) Malnutrition Current Visit: Yes Status: Chronic Qualifiers: Protein-calorie malnutrition severity: mild Plan to address problem: Dietary supplements ordered (6) vIRAL Gastroenteritis Resolving (7)DVT prophylaxis Current Visit: Yes Status: Acute Plan to address problem: Heparin 5000 every 12 and GI prophylaxis Disposition: DC- LEFT AGAINST MED ADVICE Time spent for discharge: 35 MINS Core Measure Documentation - Palliative Care Palliative Care/ Comfort Measures: Not Applicable - Core Measures Any of the following diagnoses?: none Exam - Physical Exam Narrative exam: General appearance: Present: mild distress, well-nourished, LETHARGIC - EENT Eyes: Present: PERRL ENT: hearing intact, clear oral mucosa - Neck Neck: Present: supple, normal ROM - Respiratory Respiratory effort: normal Respiratory: bilateral: CTA - Cardiovascular Heart Sounds: Present: S1 & S2. Absent: rub, click - Extremities Extremities: no ischemia, pulses symmetrical, No edema Extremity abnormal: edema (3+) Peripheral Pulses: within normal limits - Abdominal General gastrointestinal: Present: soft, non-tender, non-distended, normal bowel sounds Female genitourinary: Present: normal - Integumentary Integumentary: Present: clear, warm, dry - Musculoskeletal Musculoskeletal: gait normal, strength equal bilaterally - Psychiatric Psychiatric: appropriate mood/affect, intact judgment & insight - Neurologic Neurologic: CNII-XII intact, moves all extremities - Allied Health Allied health notes reviewed: nursing, case management - Constitutional Vitals: Temp Pulse Resp BP Pulse Ox 98.2 F 107 H 18 169/83 97 05/11/19 17:45 05/11/19 17:45 05/11/19 17:45 05/11/19 17:45 05/11/19 11:45 Plan Activity: advance as tolerated, fall precautions Diet: diabetic, renal Follow up with: MEG NEWSOME MD [Primary Care Provider] - 7 Days
== END 2019-05-11 18:45 | disposition left against medical advice (07) | DRG 291 ==
LOC: ED 11:09 → 3A 17:23
PROVIDERS: ADMIT Internal Medicine; ATTEND Internal Medicine
PROC: 5A1D70Z Performance of Urinary Filtration, Intermittent, Less than 6 Hours Per Day (ICD-10-PCS; principal; 2019-05-11)
DX: I13.2 Hypertensive heart and chronic kidney disease with heart failure and with stage 5 chronic kidney disease, or end stage renal disease (principal); N18.6 End stage renal disease; E44.1 Mild protein-calorie malnutrition; Z68.43 Body mass index [BMI] 50.0-59.9, adult; I50.9 Heart failure, unspecified; A08.4 Viral intestinal infection, unspecified; E11.22 Type 2 diabetes mellitus with diabetic chronic kidney disease; J44.9 Chronic obstructive pulmonary disease, unspecified; Z79.899 Other long term (current) drug therapy
CPT/HCPCS: 36415; 71045; 80048; 80053; 80074; 80076; 82962; 83036; 85007; 85025; G0378; J1170; J1644; J2405; J2997; J7030

== ENCOUNTER 2019-05-28 15:16 | Inpatient (IN) | payer MEDICARE ==
[2019-05-28] MEDS ORDERED: MORPHINE IV ONE (17:08)
--- NOTE | 2019-05-28 17:08 | Emergency Department Report ---
ED Extremity Problem HPI - General Chief complaint: Extremity Injury, Lower Stated complaint: PAIN IN LEGS Time Seen by Provider: 05/28/19 16:46 Source: patient Mode of arrival: Ambulatory Limitations: No Limitations - History of Present Illness Initial comments: 44 yo F with hx of ESRD, CHF presents to ED with complaint of pain to bilateral lower legs in area of wounds. Pt has wounds on anterior ankles, states has been present x 2 weeks. Pt reports increasing pain and change in color, states wounds now have a dark layer since yesterday. Pt reports fever, states has not been dialyzed in 1.5 weeks because of the fever. Denies shortness of breath. Renal: Mj [id number] Complaint: extremity pain -: week(s) (2) Location: bilateral lower extremity Severity scale (0 -10): 9 Quality: aching Consistency: constant Improves with: nothing Worsens with: palpation Associated Symptoms: fever. denies: chest pain, shortness of breath - Related Data Previous Rx's Medication Instructions Recorded Last Taken Type NIFEdipine XL [Procardia Xl] 60 mg PO Q12HR #60 tablet 04/08/19 Unknown Rx cloNIDine [Catapres] 0.2 mg PO TID #90 tablet 04/08/19 Unknown Rx hydrALAZINE [Apresoline TAB] 100 mg PO TID #90 tab 04/08/19 Unknown Rx Allergies Allergy/AdvReac Type Severity Reaction Status Date / Time No Known Allergies Allergy Verified 03/12/19 12:23 ED Review of Systems ROS: Stated complaint: PAIN IN LEGS Other details as noted in HPI Comment: All other systems reviewed and negative Constitutional: fever Respiratory: denies: shortness of breath Cardiovascular: denies: chest pain Musculoskeletal: as per HPI Skin: as per HPI ED Past Medical Hx - Past Medical History Previous Medical History?: Yes Hx Hypertension: Yes Hx Heart Attack/AMI: No Hx Congestive Heart Failure: Yes Hx Diabetes: Yes Hx Deep Vein Thrombosis: No Hx Pulmonary Embolism: No Hx Renal Disease: Yes Hx Asthma: No Hx COPD: Yes Hx Tuberculosis: No Hx HIV: No - Surgical History Past Surgical History?: Yes Hx Coronary Stent: No Hx Pacemaker: No Hx Internal Defibrillator: No Additional Surgical History: Perm cath, - Social History Smoking Status: Never Smoker Substance Use Type: None - Medications Home Medications: Home Medications Medication Instructions Recorded Confirmed Last Taken Type NIFEdipine XL [Procardia Xl] 60 mg PO Q12HR #60 tablet 04/08/19 05/28/19 Unknown Rx cloNIDine [Catapres] 0.2 mg PO TID #90 tablet 04/08/19 05/28/19 Unknown Rx hydrALAZINE [Apresoline TAB] 100 mg PO TID #90 tab 04/08/19 05/28/19 Unknown Rx ED Physical Exam - General Limitations: No Limitations General appearance: alert, in no apparent distress, obese - Head Head exam: Present: atraumatic, normocephalic - Eye Eye exam: Present: normal appearance - ENT ENT exam: Present: mucous membranes moist - Neck Neck exam: Present: normal inspection - Respiratory Respiratory exam: Present: normal lung sounds bilaterally. Absent: respiratory distress - Cardiovascular Cardiovascular Exam: Present: normal rhythm, tachycardia - GI/Abdominal GI/Abdominal exam: Present: soft. Absent: distended, tenderness - Extremities Exam Extremities exam: Present: other (4+ edema present in BLE; open wound with purulence and foul smell present anterior aspect of bilateral ankles; erythema surrounding, tender to palpation) - Neurological Exam Neurological exam: Present: alert, oriented X3 - Psychiatric Psychiatric exam: Present: normal affect, normal mood - Skin Skin exam: Present: warm ED Course Vital Signs 05/28/19 05/28/19 05/28/19 16:22 18:59 21:00 Temperature 98.7 F 98.8 F Pulse Rate 113 H 91 H 94 H Respiratory 20 16 15 Rate Blood Pressure 200/113 109/65 174/99 [Left] O2 Sat by Pulse 98 99 95 Oximetry - Consultations Consultation #1: 05/28/19 19:05 Spoke w/ Dr Green, produce production team member. States will dialyze in the AM. ED Medical Decision Making - Lab Data Result diagrams: 05/28/19 17:18 05/28/19 17:18 - Medical Decision Making 44 yo F w/ cellulitis to bilateral lower extremities. Pt reports she has missed 3 dialysis sessions b/c she has been running fevers at home. Pt afebrile here in the ED. WBCs mildly elevated. BP and heart rate improved without medication. Clindamycin given for cellulitis. Spoke w/ produce production team member, wants pt admitted for dialysis. - Differential Diagnosis hyperkalemia, pulm edema, cellulitis Critical care attestation.: If time is entered above; I have spent that time in minutes in the direct care of this critically ill patient, excluding procedure time. ED Disposition Clinical Impression: Cellulitis of both lower extremities, Missed dialysis Disposition: OP ADMIT IP TO THIS HOSP Is pt being admited?: Yes Condition: Stable Time of Disposition: 19:03
--- NOTE | 2019-05-28 17:45 | XRay Report ---
CHEST 1 VIEW INDICATION: missed dialysis. COMPARISON: 05/10/2019 FINDINGS: Support devices: Right-sided central catheter is unchanged, tip projects at the SVC/right atrial junc tion. Heart: Enlarged, unchanged. Lungs/Pleura: No acute pulmonary or pleural findings. IMPRESSION: 1. No acute findings. Signer Name: Martínez Alves MD Signed: 05/28/2019 5:41 PM Workstation Name: [id number]
[2019-05-28 17:48] LABS: Calcium 9.1 mg/dL (8.4-10.2)
[2019-05-28 17:49] LABS: Hematocrit 29.1 % (30.3-42.9); Hemoglobin 9.6 gm/dl (10.1-14.3); Mean Corpuscular HGB Conc 33 % (30-34); Mean Corpuscular Volume 84 fl (79-97); Platelet Count 396 K/mm3 (140-440); Red Blood Count 3.48 M/mm3 (3.65-5.03); Red Cell Distribution Width 17.4 % (13.2-15.2)
[2019-05-28] MEDS ORDERED: CLEOCIN 900 MG/50 mL 900 MG/50 ML BAG IV ONE (19:03)
[2019-05-28] MEDS ORDERED: SODIUM CHLORIDE FLUSH SYRINGE 10 ML IV PRN (20:27)
[2019-05-28] MEDS ORDERED: TYLENOL PO PRN (20:27)
[2019-05-28] MEDS ORDERED: ZOFRAN IV PRN (20:27)
--- NOTE | 2019-05-28 22:14 | History and Physical Report ---
History of Present Illness Date of examination: 05/28/19 Date of admission: 05/28/19 20:27 Chief complaint: Missed dialysis, bilateral lower legs cellulitis History of present illness: Patient is a 44-year-old female with PMHx of ESRD, CHF, HTN, DM type II, morbid obesity, chronic bilateral cellulitis who presents to the ER with complaint bilateral lower legs pain, fever and missed dialysis x2. Patient states that she had been having pain in her legs and worsening mental wounds, she was able to go to hemodialysis on Friday but she missed Friday's and Friday due to pain and legs wounds. Pt states that she was doing her wound care at home but she noticed for the past 2 weeks, the wounds was getting worse, she developed a new wound in her anterior ankles area. Pt reports increasing pain and change in color, she noted dark layer since yesterday. Pt reports fever, chills, legs pain, she denies headache, denies nausea, denies vomiting or abdominal pain. PE shows an obese female with bilateral legs swelling, foul smell wounds in bilateral lower legs. Patient states that she come to the ER for evaluation, she was started on IV antibiotic and admitted for further evaluation and treatment. Medications and Allergies Allergies Allergy/AdvReac Type Severity Reaction Status Date / Time No Known Allergies Allergy Verified 03/12/19 12:23 Home Medications Medication Instructions Recorded Confirmed Last Taken Type NIFEdipine XL [Procardia Xl] 60 mg PO Q12HR #60 tablet 04/08/19 05/28/19 Unknown Rx cloNIDine [Catapres] 0.2 mg PO TID #90 tablet 04/08/19 05/28/19 Unknown Rx hydrALAZINE [Apresoline TAB] 100 mg PO TID #90 tab 04/08/19 05/28/19 Unknown Rx Active Meds: Active Medications Acetaminophen (Tylenol) 650 mg PO Q4H PRN PRN Reason: Pain MILD(1-3)/Fever >100.5/[place] Famotidine (Pepcid) 20 mg PO BID WALT Ondansetron HCl (Zofran) 4 mg IV Q8H PRN PRN Reason: Nausea And Vomiting Sodium Chloride (Sodium Chloride Flush Syringe 10 Ml) 10 ml IV BID WALT Sodium Chloride (Sodium Chloride Flush Syringe 10 Ml) 10 ml IV PRN PRN PRN Reason: LINE FLUSH Review of Systems Constitutional: other (fever) Musculoskeletal: other (legs wounds, pain and inability to walk.) Integumentary: lesions, foot/leg ulcers Exam - Constitutional Vitals: Temp Pulse Resp BP Pulse Ox 98.8 F 94 H 15 174/99 95 05/28/19 21:00 05/28/19 21:00 05/28/19 21:00 05/28/19 21:00 05/28/19 21:00 General appearance: Present: no acute distress - EENT Eyes: Present: EOM intact ENT: hearing intact - Neck Neck: Present: normal ROM - Respiratory Respiratory effort: normal Respiratory: bilateral: CTA - Cardiovascular Rhythm: regular - Extremities Extremity abnormal: edema, ulceration, tenderness Peripheral Pulses: within normal limits - Abdominal General gastrointestinal: Present: non-tender, non-distended - Rectal Rectal Exam: deferred - Integumentary Integumentary: Present: warm, dry, erythema - Musculoskeletal Musculoskeletal: strength equal bilaterally - Psychiatric Psychiatric: cooperative - Neurologic Neurologic: moves all extremities Results - Labs CBC & Chem 7: 05/28/19 17:18 05/28/19 17:18 Labs: Laboratory Last Values WBC 12.5 K/mm3 (4.5-11.0) H 05/28/19 17:18 RBC 3.48 M/mm3 (3.65-5.03) L 05/28/19 17:18 Hgb 9.6 gm/dl (10.1-14.3) L 05/28/19 17:18 Hct 29.1 % (30.3-42.9) L 05/28/19 17:18 MCV 84 fl (79-97) 05/28/19 17:18 MCH 28 pg (28-32) 05/28/19 17:18 MCHC 33 % (30-34) 05/28/19 17:18 RDW 17.4 % (13.2-15.2) H 05/28/19 17:18 Plt Count 396 K/mm3 (140-440) 05/28/19 17:18 Lymph % (Auto) Ammonia Operator 05/28/19 17:18 Nance % (Auto) Ammonia Operator 05/28/19 17:18 Eos % (Auto) Ammonia Operator 05/28/19 17:18 Baso % (Auto) Ammonia Operator 05/28/19 17:18 Lymph # Ammonia Operator 05/28/19 17:18 Nance # Ammonia Operator 05/28/19 17:18 Eos # Ammonia Operator 05/28/19 17:18 Baso # Ammonia Operator 05/28/19 17:18 Seg Neutrophils % Ammonia Operator 05/28/19 17:18 Seg Neutrophils # Ammonia Operator 05/28/19 17:18 Sodium 131 mmol/L (137-145) L 05/28/19 17:18 Potassium 4.1 mmol/L (3.6-5.0) 05/28/19 17:18 Chloride 91.4 mmol/L (98-107) L 05/28/19 17:18 Carbon Dioxide 19 mmol/L (22-30) L 05/28/19 17:18 25 mmol/L 05/28/19 17:18 BUN 65 mg/dL (7-17) H 05/28/19 17:18 9.1 mg/dL (0.7-1.2) H 05/28/19 17:18 Estimated GFR 6 ml/min 05/28/19 17:18 7 % 05/28/19 17:18 Glucose 146 mg/dL (65-100) H 05/28/19 17:18 Calcium 9.1 mg/dL (8.4-10.2) 05/28/19 17:18 Assessment and Plan Assessment and plan: 1. Leukocytosis 2. Bilateral legs wound 3. Bilateral legs pains 4. ESRD on HD 5. DM type II 6. Anemia (likely due to CKD) 7. Morbid obesity Plan: Patient is admitted to [facility] Continue clindamycin every 8 hours Wounds care consult Resume home meds Monitor blood glucose ACHS Consults patient's nephrology for HD management Plans discussed with patient Advance Directives: Yes VTE prophylaxis?: Chemical Plan of care discussed with patient/family: Yes
[2019-05-28] MEDS: SODIUM CHLORIDE FLUSH SYRINGE 10 ML IV SCH (23:56)
[2019-05-28] MEDS: PEPCID PO SCH (23:56)
[2019-05-28] MEDS: PERCOCET 5/325 PO PRN (23:56)
[2019-05-28] MEDS: CATAPRES PO PRN (23:56)
[2019-05-29] MEDS: CLEOCIN 900 MG/50 mL 900 MG/50 ML BAG IV SCH ×3 (03:56→20:47)
[2019-05-29] MEDS: PERCOCET 5/325 PO PRN ×3 (06:16→19:37)
[2019-05-29] MEDS ORDERED: CATAPRES PO SCH ×2 (08:00→11:17)
[2019-05-29] MEDS ORDERED: APRESOLINE PO SCH (08:00)
[2019-05-29] MEDS ORDERED: PROCARDIA XL PO SCH (10:00)
--- NOTE | 2019-05-29 11:13 | Consultation ---
History of Present Illness - History of Present Illness My assessment and plan are as follows End-stage renal disease: Patient will continue with hemodialysis treatment on and Friday, scheduled as tolerated monitor hemodynamics closely while on dialysis dialysis nurse to monitor blood pressure and make sure systolic bloo d pressure is not below 100 and heart rate is not above 100, Anemia and end-stage renal disease: To monitor and follow, erythropoietin as required goal hemoglobin dialysis patients usually occurring 10 and 12 Secondary hyperparathyroidism: Monitor phosphorus and PTH and adjust binders as needed Diet and nutrition: Fluid restriction 1200 mL per day, high-protein diet may benefit from nutrition consultation , patient is protein intake should be 1.5 g per KG body weight Hypertension and volume continue to monitor, educated about fluid restriction sodium restriction Obesity bilateral lower extremity edema: Wounds Dialysis diet plan was discussed with the patient for end-stage renal disease care Patient was also educated about hospital-related comorbidities Patient does exhibit good understanding of the renal related issues Patient has been adequately counseled and educated regarding all the renal related issues Renal care plan was discussed with patient Prognosis remains guarded at this time We'll continue to follow and make recommendation from renal standpoint If you have any questions please feel free to contact me at [phone] Rogelio Green M.D. [facility] [address] [place] [address] History of presenting illness 44-year-old female who is here admitted with the chronic both lower extremities swelling, and is currently also dialysis dependent, patient has been missing dialysis due to inability to go for dialysis and chronic leg wounds She currently denies having any chest pain pressure or shortness of breath Events of this hospitalization noted Past medical history significant for End-stage renal disease Anemia and end-stage renal disease Secondary hyperparathyroidism Diabetes Hypertension Morbid obesity Chronic bilateral lower extremity swelling Current allergies none Home medication present medication: Reviewed Social history: Reviewed Family history: Reviewed Review of systems: Bilateral swelling both lower extremities, missing dialysis unable to self-care, All other review of systems negative Physical examination: General: No acute distress HEENT: Oral mucosa moist no icterus, no facial swelling Neck: Supple no thyromegaly no lymphadenopathy no JVD Chest: Clear to auscultation no crackles rales or wheezes Heart: Regular rate and rhythm S1-S2 heard no S3-S4 Abdomen: Soft nontender no organomegaly no masses palpable no renal bruit no suprapubic masses no CVA tenderness Dermatology: No skin rashes noted Extremity: Bilateral lower extremity edema psych: No evidence of agitation and aggression noted Neurological: Alert awake follows commands no tremors no myoclonus Back: No CVA tenderness Medications and Allergies Allergies Allergy/AdvReac Type Severity Reaction Status Date / Time No Known Allergies Allergy Verified 03/12/19 12:23 Home Medications Medication Instructions Recorded Confirmed Last Taken Type NIFEdipine XL [Procardia Xl] 60 mg PO Q12HR #60 tablet 04/08/19 05/28/19 Unknown Rx cloNIDine [Catapres] 0.2 mg PO TID #90 tablet 04/08/19 05/28/19 Unknown Rx hydrALAZINE [Apresoline TAB] 100 mg PO TID #90 tab 04/08/19 05/28/19 Unknown Rx Active Meds: Active Medications Acetaminophen (Tylenol) 650 mg PO Q4H PRN PRN Reason: Pain MILD(1-3)/Fever >100.5/[place] Clonidine HCl (Catapres) 0.1 mg PO Q4H PRN PRN Reason: Hypertension Last Admin: 05/28/19 23:56 Dose: 0.1 mg Documented by: Clonidine HCl (Catapres) 0.2 mg PO TID [facility] Famotidine (Pepcid) 20 mg PO BID [facility] Last Admin: 05/28/19 23:56 Dose: 20 mg Documented by: Hydralazine HCl (Apresoline) 100 mg PO TID [facility] Clindamycin HCl (Cleocin 900 Mg/50 Ml) 900 mg in 50 mls @ 100 mls/hr IV Q8H [facility]; Protocol Last Admin: 05/29/19 03:56 Dose: 100 mls/hr Documented by: Morphine Sulfate (Morphine) 2 mg IV Q4H PRN PRN Reason: Pain, Moderate (4-6) Nifedipine (Procardia Xl) 60 mg PO Q12HR [facility] Ondansetron HCl (Zofran) 4 mg IV Q8H PRN PRN Reason: Nausea And Vomiting Oxycodone/Acetaminophen (Percocet 5/325) 1 tab PO Q6H PRN PRN Reason: Pain, Moderate (4-6) Last Admin: 05/29/19 06:16 Dose: 1 tab Documented by: Sodium Chloride (Sodium Chloride Flush Syringe 10 Ml) 10 ml IV BID [facility] Last Admin: 05/28/19 23:56 Dose: 10 ml Documented by: Sodium Chloride (Sodium Chloride Flush Syringe 10 Ml) 10 ml IV PRN PRN PRN Reason: LINE FLUSH Exam - Vital Signs Vital signs: Vital Signs Temp Pulse Resp BP Pulse Ox 98.7 F 113 H 20 200/113 98 05/28/19 16:22 05/28/19 16:22 05/28/19 16:22 05/28/19 16:22 05/28/19 16:22 Results - Lab Results 05/28/19 17:18 05/28/19 17:18 Most recent lab results Calcium 9.1 mg/dL (8.4-10.2) 05/28/19 17:18
[2019-05-29] MEDS ORDERED: NACL 0.9% 100 ML IV PRN (11:18)
[2019-05-29] MEDS: PEPCID PO SCH ×2 (11:49→22:51)
[2019-05-29] MEDS: PROCARDIA XL PO SCH (12:04)
[2019-05-29] MEDS: SODIUM CHLORIDE FLUSH SYRINGE 10 ML IV SCH ×2 (12:07→22:51)
[2019-05-29] MEDS: CATAPRES PO SCH ×2 (13:16→22:50)
[2019-05-29] MEDS: CATAPRES PO PRN ×2 (13:41→16:55)
[2019-05-29] MEDS ORDERED: NACL 0.9 (PRIMING MACHINE ONLY DIALYSIS) MC ONE ×2 (16:55→19:44)
[2019-05-29] MEDS: HEPARIN 10,000 UNITS/10 ML IV SCH (17:02)
--- NOTE | 2019-05-29 17:48 | Progress Note ---
Assessment and Plan 1. Leukocytosis with SIRS 2. Bilateral LE with cellulites 3. Bilateral LE chronic nonhealing wound 4. ESRD on HD 5. DM type II 6. Anemia (likely due to CKD) 7. Morbid obesity due top access calorie 8. s/p fall [facility] Continue clindamycin every 8 hours Wounds care consulted, follow blood Cx Resumed home meds Monitor blood glucose ACHS Consulted nephrology for HD management Plans discussed with patient PT lily Subjective Date of service: 05/29/19 Interval history: Patient seen and examined c/o b/l LE pain and chronic nonhealing wound states that she fell multiple times at home denies chest pain and SOB Objective - Exam Narrative Exam: General appearance: Present: no acute distress - EENT Eyes: Present: EOM intact ENT: hearing intact - Neck Neck: Present: normal ROM - Respiratory Respiratory effort: normal Respiratory: bilateral: CTA - Cardiovascular Rhythm: regular - Extremities Extremity abnormal: edema, ulceration, tenderness Peripheral Pulses: within normal limits - Abdominal General gastrointestinal: Present: non-tender, non-distended - Rectal Rectal Exam: deferred - Integumentary Integumentary: Present: warm, dry, + erythema LE - Musculoskeletal Musculoskeletal: strength equal bilaterally - Psychiatric Psychiatric: cooperative - Neurologic Neurologic: moves all extremities - Constitutional Vitals: Vital Signs - 12hr 05/29/19 05/29/19 05/29/19 12:42 13:00 13:15 Temperature 97.8 F 97.8 F Pulse Rate 91 H 91 H 92 H Respiratory 22 18 Rate Blood Pressure 180/102 169/95 186/101 O2 Sat by Pulse 98 Oximetry 05/29/19 05/29/19 05/29/19 13:16 13:30 13:41 Temperature Pulse Rate 94 H 101 H 101 H Respiratory Rate Blood Pressure 180/102 203/117 203/117 O2 Sat by Pulse Oximetry 05/29/19 05/29/19 05/29/19 13:45 14:00 14:15 Temperature Pulse Rate 98 H 90 87 Respiratory Rate Blood Pressure 196/114 172/95 152/85 O2 Sat by Pulse Oximetry 05/29/19 05/29/19 05/29/19 14:30 14:45 15:00 Temperature Pulse Rate 86 87 90 Respiratory Rate Blood Pressure 138/78 147/88 163/91 O2 Sat by Pulse Oximetry 05/29/19 05/29/19 05/29/19 15:15 15:30 15:45 Temperature Pulse Rate 88 90 92 H Respiratory Rate Blood Pressure 169/70 182/105 131/54 O2 Sat by Pulse Oximetry 05/29/19 05/29/19 05/29/19 16:00 16:15 16:30 Temperature Pulse Rate 105 H 112 H 116 H Respiratory Rate Blood Pressure 194/92 214/116 222/109 O2 Sat by Pulse Oximetry 05/29/19 05/29/19 05/29/19 16:45 16:55 17:00 Temperature Pulse Rate 117 H 117 H 117 H Respiratory Rate Blood Pressure 204/105 204/105 216/122 O2 Sat by Pulse Oximetry - Labs CBC & Chem 7: 05/30/19 05:21 05/30/19 05:21 Labs: Abnormal lab results 05/28/19 05/28/19 05/29/19 Range/Units 17:18 17:18 08:48 WBC 12.5 H (4.5-11.0) K/mm3 RBC 3.48 L (3.65-5.03) M/mm3 Hgb 9.6 L (10.1-14.3) gm/dl Hct 29.1 L (30.3-42.9) % RDW 17.4 H (13.2-15.2) % Sodium 131 L (137-145) mmol/L Chloride 91.4 L (98-107) mmol/L Carbon Dioxide 19 L (22-30) mmol/L BUN 65 H (7-17) mg/dL Creatinine 9.1 H (0.7-1.2) mg/dL Glucose 146 H (65-100) mg/dL POC Glucose 166 H (70-105) 05/29/19 Range/Units 12:47 WBC (4.5-11.0) K/mm3 RBC (3.65-5.03) M/mm3 Hgb (10.1-14.3) gm/dl Hct (30.3-42.9) % RDW (13.2-15.2) % Sodium (137-145) mmol/L Chloride (98-107) mmol/L Carbon Dioxide (22-30) mmol/L BUN (7-17) mg/dL Creatinine (0.7-1.2) mg/dL Glucose (65-100) mg/dL POC Glucose 146 H (70-105)
[2019-05-30] MEDS: CLEOCIN 900 MG/50 mL 900 MG/50 ML BAG IV SCH ×3 (04:04→22:30)
[2019-05-30] MEDS: PERCOCET 5/325 PO PRN ×2 (05:00→19:22)
[2019-05-30 06:13] LABS: Basophils # (Auto) 0.1 K/mm3 (0.0-0.1); Basophils % (Auto) 0.6 % (0.0-1.8); Eosinophils # (Auto) 0.1 K/mm3 (0.0-0.4); Eosinophils % (Auto) 1.3 % (0.0-4.3); Hematocrit 28.1 % (30.3-42.9); Hemoglobin 9.4 gm/dl (10.1-14.3); Lymphocytes # (Auto) 1.4 K/mm3 (1.2-5.4); Lymphocytes % (Auto) 12.8 % (13.4-35.0); Mean Corpuscular HGB Conc 33 % (30-34); Mean Corpuscular Volume 84 fl (79-97); Monocytes # (Auto) 1.4 K/mm3 (0.0-0.8); Monocytes % (Auto) 13.2 % (0.0-7.3); Platelet Count 371 K/mm3 (140-440); Red Blood Count 3.37 M/mm3 (3.65-5.03); Red Cell Distribution Width 16.9 % (13.2-15.2)
[2019-05-30 06:25] LABS: Calcium 8.4 mg/dL (8.4-10.2)
[2019-05-30] MEDS: CATAPRES PO SCH ×3 (06:46→21:23)
--- NOTE | 2019-05-30 09:34 | Progress Note ---
Assessment and Plan 1. Leukocytosis with SIRS 2. Bilateral LE with cellulites 3. Bilateral LE chronic nonhealing wound 4. ESRD on HD 5. DM type II 6. Anemia (likely due to CKD) 7. Morbid obesity due top access calorie 8. s/p fall Plan: Monitor at [facility] Continue clindamycin every 8 hours Wounds care consulted - pending, follow blood Cx/wound cx Resumed home meds Monitor blood glucose ACHS, check A1c Consulted nephrology for HD management Plans discussed with patient PT lily - pending Subjective Date of service: 05/30/19 Interval history: Patient seen and examined c/o b/l LE pain and chronic nonhealing wound - but pain improved today states that she fell multiple times at home denies chest pain and SOB Objective - Exam Narrative Exam: General appearance: Present: no acute distress - EENT Eyes: Present: EOM intact ENT: hearing intact - Neck Neck: Present: normal ROM - Respiratory Respiratory effort: normal Respiratory: bilateral: CTA - Cardiovascular Rhythm: regular - Extremities Extremity abnormal: edema, ulceration, tenderness Peripheral Pulses: within normal limits - Abdominal General gastrointestinal: Present: non-tender, non-distended - Rectal Rectal Exam: deferred - Integumentary Integumentary: Present: warm, dry, + erythema LE - Musculoskeletal Musculoskeletal: strength equal bilaterally - Psychiatric Psychiatric: cooperative - Neurologic Neurologic: moves all extremities - Constitutional Vitals: Vital Signs - 12hr 05/29/19 05/29/19 05/30/19 22:50 23:40 05:00 Temperature 98.5 F Pulse Rate 91 H 99 H Respiratory 18 18 Rate Blood Pressure 131/74 139/67 O2 Sat by Pulse 92 Oximetry 05/30/19 05/30/19 05:28 06:46 Temperature 98.8 F Pulse Rate 91 H 91 H Respiratory 20 Rate Blood Pressure 143/71 143/71 O2 Sat by Pulse 94 Oximetry - Labs CBC & Chem 7: 05/30/19 05:21 05/30/19 05:21 Labs: Abnormal lab results 05/29/19 05/29/19 05/29/19 Range/Units 12:47 18:55 21:35 RBC (3.65-5.03) M/mm3 Hgb (10.1-14.3) gm/dl Hct (30.3-42.9) % RDW (13.2-15.2) % Lymph % (Auto) (13.4-35.0) % [place] % (Auto) (0.0-7.3) % [place] # (0.0-0.8) K/mm3 Seg Neutrophils % (40.0-70.0) % Seg Neutrophils # (1.8-7.7) K/mm3 Sodium (137-145) mmol/L Chloride (98-107) mmol/L BUN (7-17) mg/dL Creatinine (0.7-1.2) mg/dL Glucose (65-100) mg/dL POC Glucose 146 H 129 H 174 H (70-105) 05/30/19 05/30/19 05/30/19 Range/Units 05:21 05:21 07:30 RBC 3.37 L (3.65-5.03) M/mm3 Hgb 9.4 L (10.1-14.3) gm/dl Hct 28.1 L (30.3-42.9) % RDW 16.9 H (13.2-15.2) % Lymph % (Auto) 12.8 L (13.4-35.0) % [place] % (Auto) 13.2 H (0.0-7.3) % [place] # 1.4 H (0.0-0.8) K/mm3 Seg Neutrophils % 72.1 H (40.0-70.0) % Seg Neutrophils # 7.8 H (1.8-7.7) K/mm3 Sodium 133 L (137-145) mmol/L Chloride 93.5 L (98-107) mmol/L BUN 36 H (7-17) mg/dL Creatinine 6.1 H (0.7-1.2) mg/dL Glucose 186 H (65-100) mg/dL POC Glucose 173 H (70-105)
[2019-05-30] MEDS: PEPCID PO SCH ×2 (10:05→21:22)
[2019-05-30] MEDS: PROCARDIA XL PO SCH (10:05)
[2019-05-30] MEDS: SODIUM CHLORIDE FLUSH SYRINGE 10 ML IV SCH ×2 (10:07→21:22)
--- NOTE | 2019-05-30 11:28 | Progress Note ---
Subjective Interval history: came to see the patient for follow-up today Events of this hospitalization were noted Interdisciplinary notes were also reviewed Vitals intake output medications were reviewed patient was sitting in the restroom for quite some time Case was discussed with primary physician He is being evaluated by PT Admitted after missing dialysis treatment Assessment and plan: End-stage renal disease: Patient missing dialysis treatment in outpatient setting, 3 times a week, social security specialist needs to follow up on the patient from the dialysis facility as well? Transportation problem, patient is a very poor historian Anemia in ESRD current hemoglobin 9.4 patient needs to be consistent with hemodialysis, will give her 20,000 units of erythropoietin today Hyponatremia, missing dialysis treatment current sodium is improving 133 Metabolic acidosis: Appears to be improving well Poorly compliant patient: Prognosis is guarded to poor Patient has been adequately consolidated to comply with treatment recommendation prognosis will depend on that currently felt to be very poor patient was clearly explained that missing dialysis treatment and resultant high mortality risk All renal related issues were discussed with the patient, patient does exhibit good understanding, lab results were also discussed with patient in simple E nglish Prognosis: Guarded We'll continue to follow and make recommendation from renal standpoint Objective - Vital Signs Vital signs: Vital Signs - 12hr 05/29/19 05/30/19 05/30/19 23:40 05:00 05:28 Temperature 98.5 F 98.8 F Pulse Rate 99 H 91 H Respiratory 18 18 20 Rate Blood Pressure 139/67 143/71 O2 Sat by Pulse 92 94 Oximetry 05/30/19 06:46 Temperature Pulse Rate 91 H Respiratory Rate Blood Pressure 143/71 O2 Sat by Pulse Oximetry - Lab 05/30/19 05:21 05/30/19 05:21 Most recent lab results Calcium 8.4 mg/dL (8.4-10.2) 05/30/19 05:21 Medications & Allergies - Medications Allergies/Adverse Reactions: Allergies No Known Allergies Allergy (Verified 03/12/19 12:23) Home Medications: Home Medications Medication Instructions Recorded Confirmed Last Taken Type NIFEdipine XL [Procardia Xl] 60 mg PO Q12HR #60 tablet 04/08/19 05/28/19 Unknown Rx cloNIDine [Catapres] 0.2 mg PO TID #90 tablet 04/08/19 05/28/19 Unknown Rx hydrALAZINE [Apresoline TAB] 100 mg PO TID #90 tab 04/08/19 05/28/19 Unknown Rx Active Medications: Generic Name Dose Route Start Last Admin Trade Name Kimberley PRN Reason Stop Dose Admin Acetaminophen 650 mg 05/28/19 20:27 Tylenol PO Q4H PRN Pain MILD(1-3)/Fever >100.5/[place] Clonidine HCl 0.1 mg 05/28/19 23:30 05/29/19 16:55 Catapres PO 0.1 mg Q4H PRN Administration Hypertension Clonidine HCl 0.3 mg 05/29/19 14:00 05/30/19 06:46 Catapres PO 0.3 mg Q8HR WALT Administration Famotidine 20 mg 05/28/19 22:00 05/30/19 10:05 Pepcid PO 20 mg BID WALT Administration Heparin Sodium (Porcine) 3,000 unit 05/29/19 17:00 05/29/19 17:02 Heparin 10,000 Units/10 Ml IV 3,000 unit AMBER WALT Administration Clindamycin HCl 900 mg in 50 mls @ 100 mls/hr 05/29/19 04:00 05/30/19 04:04 Cleocin 900 Mg/50 Ml IV 100 mls/hr Q8H WALT Administration Protocol Sodium Chloride 100 mls @ 999 mls/hr 05/29/19 11:18 Nacl 0.9% IV AMBER PRN Hypotension Morphine Sulfate 2 mg 05/28/19 22:16 Morphine IV Q4H PRN Pain, Moderate (4-6) Nifedipine 60 mg 05/29/19 12:00 05/30/19 10:05 Procardia Xl PO 60 mg DAILY WALT Administration Ondansetron HCl 4 mg 05/28/19 20:27 Zofran IV Q8H PRN Nausea And Vomiting Oxycodone/Acetaminophen 1 tab 05/28/19 22:16 05/30/19 05:00 Percocet 5/325 PO 1 tab Q6H PRN Administration Pain, Moderate (4-6) Sodium Chloride 10 ml 05/28/19 22:00 05/30/19 10:07 Sodium Chloride Flush Syringe 10 Ml IV 10 ml BID WALT Administration Sodium Chloride 10 ml 05/28/19 20:27 Sodium Chloride Flush Syringe 10 Ml IV PRN PRN LINE FLUSH
[2019-05-30] MEDS ORDERED: PROCRIT SUB-Q ONE (12:00)
[2019-05-30] MEDS: HumuLIN R SUB-Q SCH (22:30)
[2019-05-31] MEDS: CLEOCIN 900 MG/50 mL 900 MG/50 ML BAG IV SCH (04:42)
[2019-05-31] MEDS: PERCOCET 5/325 PO PRN ×3 (04:47→21:03)
[2019-05-31] MEDS: CATAPRES PO SCH ×4 (06:01→22:30)
[2019-05-31] MEDS: HumuLIN R SUB-Q SCH ×4 (08:37→21:42)
[2019-05-31] MEDS: MORPHINE IV PRN (08:42)
[2019-05-31] MEDS: PEPCID PO SCH ×3 (10:18→21:02)
[2019-05-31] MEDS ORDERED: VANCOMYCIN/NS 1 GM/250 ML 1 GM/250 ML BAG IV SCH (11:00)
[2019-05-31] MEDS ORDERED: VANCOMYCIN PHARMACY TO DOSE IV SCH (12:00)
--- NOTE | 2019-05-31 12:42 | Progress Note ---
Subjective Interval history: came to see the patient for follow-up today Events of this hospitalization were noted, has been admitted after missing dialysis treatments patient was also seen and supervised on hemodialysis in addition to many of the renal-related issues She seems to be tolerating dialysis treatment fairly well discussed with dial ysis nurse Interdisciplinary notes were also reviewed Vitals intake output medications were reviewed Past medical history: Reviewed Family history: Reviewed Social history: Reviewed Allergies: Reviewed Physical examination: Vitals: Reviewed HEENT: No pallor or icterus oral mucosa moist Neck: Supple no JVD no thyromegaly Chest: Bilateral clear to auscultation anteriorly Heart: Regular rate and rhythm S1-S2 heard no S3-S4 Abdomen: Soft nontender no voluntary guarding rigidity rebound Extremity: Dry skin less than 1+ peripheral edema Psychiatric: No evidence of agitation and aggression noted Dermatology: No petechial rashes Labs and x-rays: Reviewed from today Assessment and plan: End-stage renal disease: Patient missing dialysis treatment in outpatient setting, patient is a very poor historian CN supervised and hemodialysis will continue with assist 3 times a week Friday Anemia in ESRD current hemoglobin 9.4 patient needs to be consistent with hemodialysis, Will give her erythropoietin periodically wound culture staph aureus blood culture currently negative, she has been throughout afebrile Patient reported having fever in the outpatient setting but here she has been doing well Hyponatremia, missing dialysis treatment current sodium is improving 133, continue to monitor and follow Metabolic acidosis: Appears to be improving well, mostly resulting from poor c ompliance Poorly compliant patient: Prognosis is guarded to poor patient was clearly told that her mortality risk is high due to noncompliance with dialysis, missing treatment, electrolyte imbalance issues were also discussed with patient She will need short-term rehabilitation Does have significant edema and excoriation of the skin is currently being followed by primary team We'll continue to follow and make recommendation from renal standpoint Objective - Vital Signs Vital signs: Vital Signs - 12hr 05/31/19 05/31/19 05/31/19 04:47 05:50 06:01 Temperature 97.6 F Pulse Rate 86 91 H Respiratory 18 17 Rate Blood Pressure 118/76 118/76 O2 Sat by Pulse 96 Oximetry - Lab 05/30/19 05:21 05/30/19 05:21 Most recent lab results Calcium 8.4 mg/dL (8.4-10.2) 05/30/19 05:21 Medications & Allergies - Medications Allergies/Adverse Reactions: Allergies No Known Allergies Allergy (Verified 03/12/19 12:23) Home Medications: Home Medications Medication Instructions Recorded Confirmed Last Taken Type NIFEdipine XL [Procardia Xl] 60 mg PO Q12HR #60 tablet 04/08/19 05/28/19 Unknown Rx cloNIDine [Catapres] 0.2 mg PO TID #90 tablet 04/08/19 05/28/19 Unknown Rx hydrALAZINE [Apresoline TAB] 100 mg PO TID #90 tab 04/08/19 05/28/19 Unknown Rx Active Medications: Generic Name Dose Route Start Last Admin Trade Name Freq PRN Reason Stop Dose Admin Acetaminophen 650 mg 05/28/19 20:27 Tylenol PO Q4H PRN Pain MILD(1-3)/Fever >100.5/[place] Clonidine HCl 0.1 mg 05/28/19 23:30 05/29/19 16:55 Catapres PO 0.1 mg Q4H PRN Administration Hypertension Clonidine HCl 0.3 mg 05/29/19 14:00 05/31/19 06:01 Catapres PO Not Given Q8HR WALT Famotidine 10 mg 05/30/19 22:00 05/30/19 21:22 Pepcid PO 10 mg BID WALT Administration Heparin Sodium (Porcine) 3,000 unit 05/29/19 17:00 05/29/19 17:02 Heparin 10,000 Units/10 Ml IV 3,000 unit AMBER WALT Administration Sodium Chloride 100 mls @ 999 mls/hr 05/29/19 11:18 Nacl 0.9% IV AMBER PRN Hypotension Vancomycin HCl 2,000 mg/ 540 mls @ 250 mls/hr 05/31/19 14:00 Sodium Chloride IV 05/31/19 16:09 ONCE ONE Insulin Human Regular 0 units 05/30/19 22:00 05/31/19 08:37 Humulin R SUB-Q 1 units ACHS WALT Administration Protocol Morphine Sulfate 2 mg 05/28/19 22:16 05/31/19 08:42 Morphine IV 2 mg Q4H PRN Administration Pain, Moderate (4-6) Nifedipine 60 mg 05/29/19 12:00 05/30/19 10:05 Procardia Xl PO 60 mg DAILY WALT Administration Ondansetron HCl 4 mg 05/28/19 20:27 Zofran IV Q8H PRN Nausea And Vomiting Oxycodone/Acetaminophen 1 tab 05/28/19 22:16 05/31/19 04:47 Percocet 5/325 PO 1 tab Q6H PRN Administration Pain, Moderate (4-6) Sodium Chloride 10 ml 05/28/19 22:00 05/30/19 21:22 Sodium Chloride Flush Syringe 10 Ml IV 10 ml BID WALT Administration Sodium Chloride 10 ml 05/28/19 20:27 Sodium Chloride Flush Syringe 10 Ml IV PRN PRN LINE FLUSH
[2019-05-31] MEDS ORDERED: VANCOMYCIN 2,000 MG in NACL 0.9% 500 ML 500 ML IV ONE (14:00)
[2019-05-31] MEDS: SODIUM CHLORIDE FLUSH SYRINGE 10 ML IV SCH ×2 (14:47→21:05)
[2019-05-31] MEDS: PROCARDIA XL PO SCH (14:47)
--- NOTE | 2019-05-31 15:29 | Progress Note ---
Assessment and Plan 1. Leukocytosis with Sepsis, POA - likely from LE wound infection 2. Bilateral LE with cellulites 3. Bilateral LE chronic nonhealing wound with acute infection - wound cx growing Staph Aureus 4. ESRD on HD 5. DM type II 6. Anemia (likely due to CKD) 7. Morbid obesity due top access calorie 8. s/p fall Plan: Monitor at [facility] change clindamycin to vanc as wound cx growing Staph Aureus - final Cx pending Wounds care consulted - pending, follow final blood Cx/wound cx result Resumed home meds Monitor blood glucose ACHS, A1c 6.3 Consulted nephrology for HD management Consulted ID for further recommendation Plans discussed with patient PT eval - pending Brief History: Patient is a 44-year-old female with PMHx of ESRD, CHF, HTN, DM type II, morbid obesity, chronic bilateral cellulitis who presents to the ER with complaint bilateral lower legs pain, fever and missed dialysis x2. Admitted for SI RS/sepsis and infected LE wound, cx growing Staph Aureus, Id consulted, PT eval pending Subjective Date of service: 05/31/19 Interval history: Patient seen and examined c/o b/l LE pain and chronic nonhealing wound - but pain improved today states that she fell multiple times at home denies chest pain and SOB PT eval pending, wound cx growing Stap. aureus Objective - Exam Narrative Exam: General appearance: Present: no acute distress - EENT Eyes: Present: EOM intact ENT: hearing intact - Neck Neck: Present: normal ROM - Respiratory Respiratory effort: normal Respiratory: bilateral: CTA - Cardiovascular Rhythm: regular - Extremities Extremity abnormal: edema, ulceration, tenderness Peripheral Pulses: within normal limits - Abdominal General gastrointestinal: Present: non-tender, non-distended - Rectal Rectal Exam: deferred - Integumentary Integumentary: Present: warm, dry, + erythema LE - Musculoskeletal Musculoskeletal: strength equal bilaterally - Psychiatric Psychiatric: cooperative - Neurologic Neurologic: moves all extremities - Constitutional Vitals: Vital Signs - 12hr 05/31/19 05/31/19 05/31/19 04:47 05:50 06:01 Temperature 97.6 F Pulse Rate 86 91 H Respiratory 18 17 Rate Blood Pressure 118/76 118/76 O2 Sat by Pulse 96 Oximetry - Labs CBC & Chem 7: 05/30/19 05:21 05/30/19 05:21 Labs: Abnormal lab results 05/30/19 05/30/19 05/31/19 Range/Units 16:57 22:07 07:59 POC Glucose 202 H 236 H 180 H (70-105)
[2019-06-01] MEDS: CATAPRES PO SCH ×3 (07:45→22:33)
[2019-06-01] MEDS: PERCOCET 5/325 PO PRN ×2 (07:47→22:36)
[2019-06-01] MEDS: HumuLIN R SUB-Q SCH ×4 (09:06→22:35)
--- NOTE | 2019-06-01 10:01 | Progress Note ---
Assessment and Plan Assessment * End-stage renal disease * Bilateral LE wound c/w calciphylaxis * Hypontaremia * Anemia secondary to ESRD * Peripheral edema * Medical noncompliance Plan: * Continue hemodialysis MWF * UF as tolerated * Discussed with supply clerk at bedside. Recommend HBO treatment upon discharge. Will arrange Sodium Thiosulfate at outpatient dialysis clinic * Abx per primary team * Epogen TIW prn * Renal diet * Dose medications for renal function Subjective Date of service: 06/01/19 Interval history: Patient complains of leg pain; difficulty walking Objective - Vital Signs Vital signs: Vital Signs - 12hr 06/01/19 08:02 Temperature 99.1 F Respiratory 24 Rate Blood Pressure 130/53 [Left] O2 Sat by Pulse 90 Oximetry - General Appearance General appearance: well-developed, obese EENT: ATNC Respiratory: Present: Clear to Ascultation Cardiology: regular, normal heart rate, S1S2, no murmurs Gastrointestinal: no tenderness, no distended, obese Integumentary: other (necrotic wounds located at left and right leg) Psychiatric: cooperative - Lab 05/30/19 05:21 05/30/19 05:21 Most recent lab results Calcium 8.4 mg/dL (8.4-10.2) 05/30/19 05:21 Medications & Allergies - Medications Allergies/Adverse Reactions: Allergies No Known Allergies Allergy (Verified 03/12/19 12:23) Home Medications: Home Medications Medication Instructions Recorded Confirmed Last Taken Type NIFEdipine XL [Procardia Xl] 60 mg PO Q12HR #60 tablet 04/08/19 05/28/19 Unknown Rx cloNIDine [Catapres] 0.2 mg PO TID #90 tablet 04/08/19 05/28/19 Unknown Rx hydrALAZINE [Apresoline TAB] 100 mg PO TID #90 tab 04/08/19 05/28/19 Unknown Rx Active Medications: Generic Name Dose Route Start Last Admin Trade Name Freq PRN Reason Stop Dose Admin Acetaminophen 650 mg 05/28/19 20:27 Tylenol PO Q4H PRN Pain MILD(1-3)/Fever >100.5/[place] Clonidine HCl 0.1 mg 05/28/19 23:30 05/29/19 16:55 Catapres PO 0.1 mg Q4H PRN Administration Hypertension Clonidine HCl 0.3 mg 05/29/19 14:00 06/01/19 07:45 Catapres PO 0.3 mg Q8HR WALT Administration Famotidine 10 mg 05/30/19 22:00 05/31/19 21:02 Pepcid PO 10 mg BID WALT Administration Heparin Sodium (Porcine) 3,000 unit 05/29/19 17:00 05/29/19 17:02 Heparin 10,000 Units/10 Ml IV 3,000 unit AMBER WALT Administration Sodium Chloride 100 mls @ 999 mls/hr 05/29/19 11:18 Nacl 0.9% IV AMBER PRN Hypotension Insulin Human Regular 0 units 05/30/19 22:00 06/01/19 09:06 Humulin R SUB-Q 1 units ACHS WALT Administration Protocol Morphine Sulfate 2 mg 05/28/19 22:16 05/31/19 08:42 Morphine IV 2 mg Q4H PRN Administration Pain, Moderate (4-6) Nifedipine 60 mg 05/29/19 12:00 05/31/19 14:47 Procardia Xl PO 60 mg DAILY WALT Administration Ondansetron HCl 4 mg 05/28/19 20:27 Zofran IV Q8H PRN Nausea And Vomiting Oxycodone/Acetaminophen 1 tab 05/28/19 22:16 06/01/19 07:47 Percocet 5/325 PO 1 tab Q6H PRN Administration Pain, Moderate (4-6) Sodium Chloride 10 ml 05/28/19 22:00 05/31/19 21:05 Sodium Chloride Flush Syringe 10 Ml IV 10 ml BID WALT Administration Sodium Chloride 10 ml 05/28/19 20:27 Sodium Chloride Flush Syringe 10 Ml IV PRN PRN LINE FLUSH
[2019-06-01] MEDS: MORPHINE IV PRN (10:53)
[2019-06-01] MEDS: PEPCID PO SCH ×2 (10:53→22:33)
[2019-06-01] MEDS: PROCARDIA XL PO SCH (10:54)
[2019-06-01] MEDS: SODIUM CHLORIDE FLUSH SYRINGE 10 ML IV SCH ×2 (10:54→22:34)
--- NOTE | 2019-06-01 13:04 | Consultation ---
History of Present Illness - Reason for Consult Consult date: 06/01/19 Infected leg wound with staph aureus Requesting physician: ISABELLA FONTANEZ - History of Present Illness This patient is a 44-year old female with a past medical history of ESRD, HTN, DM type 2, morbid obesity, chronic bilateral cellulitis who presents to the ED on 05/28/19 with complaints of bilateral lower leg pain, fever and missed dialysis X2. Patient stated that she had been having worsening bilateral leg pain and that she has has been doing her wound care at home for the past 2 weeks and noticed that wounds were getting worse. On admission WBC 12.5, Creatinine 9.1, t emperature 98.7, HR 113, BP 190/110. Left leg wound culture Staph aureus. Blood culture in progress, Chest xray no consolidation. Review of Systems: General: no fever., chills, nightsweats, unintentional weight change, or change in appetite Cutaneous: no rash, pruritus Head: no headaches or injury Eyes: no changes in vision, eye pain, double vision Ears: no ear pain, ear discharge, ringing or hearing loss Nose: no nose bleeding, stuffiness Mouth & throat: no bleeding gums, no horseness, no dental problems, or swollen glands Neck: no pain, node enlargement/lumps, tyroid enlargement or tenderness Respiratory: no cough, wheezing, sputum, hemoptysis, pleuritic chest pain Cardiovascular: no chest pain, leg edema, cyanosis, RODRIGUES, orthopnea Musculoskeletal: bilateral anterior leg ulcerations. with purulent drainage, + foul odor, +lymphedema Gastrointestinal: no nausea, vomiting, hematemesis, diarrhea, constipation, melena, bright red blood in stools, fecal incontinence, jaundice Genitourinary/Reproductive: no frequent urination, no dysuria, hematuria, incontinence Neurogical: no seizures, no headaches, no weakness, no paresthesias, no loss of speech or vision; no memory loss, no vertigo, no tremors, no numbness Psychiatric: stable mood; no excessive anxiety, sadness or moodiness Medications and Allergies Allergies Allergy/AdvReac Type Severity Reaction Status Date / Time No Known Allergies Allergy Verified 03/12/19 12:23 Home Medications Medication Instructions Recorded Confirmed Last Taken Type NIFEdipine XL [Procardia Xl] 60 mg PO Q12HR #60 tablet 04/08/19 05/28/19 Unknown Rx cloNIDine [Catapres] 0.2 mg PO TID #90 tablet 04/08/19 05/28/19 Unknown Rx hydrALAZINE [Apresoline TAB] 100 mg PO TID #90 tab 04/08/19 05/28/19 Unknown Rx Active Meds: Active Medications Acetaminophen (Tylenol) 650 mg PO Q4H PRN PRN Reason: Pain MILD(1-3)/Fever >100.5/[place] Clonidine HCl (Catapres) 0.1 mg PO Q4H PRN PRN Reason: Hypertension Last Admin: 05/29/19 16:55 Dose: 0.1 mg Documented by: Clonidine HCl (Catapres) 0.3 mg PO Q8HR [facility] Last Admin: 06/01/19 07:45 Dose: 0.3 mg Documented by: Famotidine (Pepcid) 10 mg PO BID [facility] Last Admin: 06/01/19 10:53 Dose: 10 mg Documented by: Heparin Sodium (Porcine) (Heparin 10,000 Units/10 Ml) 3,000 unit IV AMBER [facility] Last Admin: 05/29/19 17:02 Dose: 3,000 unit Documented by: Sodium Chloride (Nacl 0.9%) 100 mls @ 999 mls/hr IV AMBER PRN PRN Reason: Hypotension Insulin Human Regular (Humulin R) 0 units SUB-Q ACHS [facility]; Protocol Last Admin: 06/01/19 09:06 Dose: 1 units Documented by: Morphine Sulfate (Morphine) 2 mg IV Q4H PRN PRN Reason: Pain, Moderate (4-6) Last Admin: 06/01/19 10:53 Dose: 2 mg Documented by: Nifedipine (Procardia Xl) 60 mg PO DAILY [facility] Last Admin: 06/01/19 10:54 Dose: 60 mg Documented by: Ondansetron HCl (Zofran) 4 mg IV Q8H PRN PRN Reason: Nausea And Vomiting Oxycodone/Acetaminophen (Percocet 5/325) 1 tab PO Q6H PRN PRN Reason: Pain, Moderate (4-6) Last Admin: 06/01/19 07:47 Dose: 1 tab Documented by: Sodium Chloride (Sodium Chloride Flush Syringe 10 Ml) 10 ml IV BID [facility] Last Admin: 06/01/19 10:54 Dose: 10 ml Documented by: Sodium Chloride (Sodium Chloride Flush Syringe 10 Ml) 10 ml IV PRN PRN PRN Reason: LINE FLUSH Physical Examination - Physical Exam Narrative exam: Constitutional: Alert, cooperative. Generalized weakness. Bilateral lower extremity pain Head, Ears, Nose: Normocephalic, atraumatic. External ears, nose normal Eyes: Conjunctivae/corneas clear. No icterus. No ptosis. Neck: Supple, no meningeal signs Oral: dentition fair. No thrush. moist mucosa Cardiovascular: S1, S2 normal. Respiratory: Good air entry, clear to auscultation bilaterally GI: Soft, non-tender; bowel sounds normal. No peritoneal signs Musculoskeletal: bilateral anterior leg ulcerations. with purulent drainage, + foul odor, +lymphedema Skin: same as above Hem/Lymphatic: No palpable cervical or supraclavicular nodes. No lymphangitis Psych: Mood ok. Affect normal Neurological: Awake, alert, oriented. - Constitutional Vitals: Vital Signs Temp Pulse Resp BP Pulse Ox 97.2 F L 78 16 109/55 91 06/01/19 12:08 06/01/19 12:08 06/01/19 12:08 06/01/19 12:08 06/01/19 12:08 Temperature -Last 24 Hours Temperature 97.2 F Temperature 99.1 F Temperature 99.1 F Temperature 99.3 F Temperature 98.0 F Results - Labs CBC & Chem 7: 05/30/19 05:21 05/30/19 05:21 Labs: Abnormal lab results 05/31/19 05/31/19 06/01/19 Range/Units 16:55 21:26 07:48 POC Glucose 154 H 219 H 177 H (70-105) 06/01/19 Range/Units 11:21 POC Glucose 180 H (70-105) - Imaging and Cardiology Chest x-ray: report reviewed (no consolidation) Assessment and Plan Cultures: 05/30/19 Left Leg wound: in progress 05/31/19: Blood: in progress 06/01/19 Right leg wound: in progress A/P: 44-year old female with a past medical history of ESRD, HTN, DM type 2, morbid obesity, chronic bilateral cellulitis who presents to the ED on 05/28/19 with complaints of bilateral lower leg pain, fever and missed dialysis X2. Patient stated that she had been having worsening bilateral leg pain and that she has has been doing her wound care at home for the past 2 weeks and noticed that wounds were getting worse. Admitted with: 1. Leukocytosis on admission: Etiology Staph aureus left lower extremity. Blood cultures in progress. Chest xray no consolidation. UA not done. Currently being treated with Vacomycin. 2. Bilateral Lower Extremity Cellulitis . R/L anterior leg ulceration with lymphedema. Left lower extremity wound culture grew staph aureus. Follow-up for ID in susceptibility. Right LE wound culture sent.. Will order Duplex Doppler . 3. ESRD on HID: antibiotics renally dosed. 4. Type 2 Diabetes 5. Morbid Obesity Recommendations: -Continue Vanconycin PK dosing -Follow up wound cultures for ID and susceptibility -Follow-up blood cultures -Duplex doppler ordered [facility] M: [id number] O:[phone]
--- NOTE | 2019-06-01 16:26 | Progress Note ---
Assessment and Plan Assessment and plan: 1. Leukocytosis with Sepsis, POA - likely from LE wound infection 2. Bilateral LE with cellulites 3. Bilateral LE chronic nonhealing wound with acute infection - wound cx growing Staph Aureus 4. ESRD on HD MWF 5. DM type II 6. Anemia (likely due to CKD) 7. Morbid obesity due top access calorie 8. s/p fall Plan: Monitor at [facility] change clindamycin to vanc as wound cx growing Staph Aureus - final Cx pending Wounds care consulted - pending, follow final blood Cx/wound cx result Resumed home meds Monitor blood glucose ACHS, A1c 6.3 Consulted nephrology for HD management Consulted ID for further recommendation Plans discussed with patient PT eval - pending Brief History: Patient is a 44-year-old female with PMHx of ESRD, CHF, HTN, DM type II, morbid obesity, chronic bilateral cellulitis who presents to the ER with complaint bilateral lower legs pain, fever and missed dialysis x2. Admitted for SIRS/sepsis and infected LE wound, cx growing Staph Aureus, Id consulted, PT eval pending History Interval history: Patient seen and examined medical records reviewed Patient complains of generalized weakness Alert awake oriented 3 Vital signs noted Denies chest pain, denies shortness of breath Denies headache or dizziness Hospitalist Physical - Constitutional Vitals: Temp Pulse Resp BP Pulse Ox 97.2 F L 78 16 109/55 91 06/01/19 12:08 06/01/19 12:08 06/01/19 12:08 06/01/19 12:08 06/01/19 12:08 General appearance: Present: no acute distress, obese (morbidly obese) - EENT Eyes: Present: PERRL, EOM intact - Neck Neck: Present: supple, normal ROM - Respiratory Respiratory effort: normal Respiratory: bilateral: diminished, negative: rales, rhonchi, wheezing - Cardiovascular Rhythm: regular Heart Sounds: Present: S1 & S2 - Extremities Extremities: no ischemia, abnormal (chronic ulcers bilateral lower extremities/infected wounds) Extremity abnormal: edema, other (dressing in place) Peripheral Pulses: within normal limits - Abdominal General gastrointestinal: soft, non-tender, non-distended, normal bowel sounds - Integumentary Integumentary: Present: clear, warm - Psychiatric Psychiatric: appropriate mood/affect, cooperative - Neurologic Neurologic: CNII-XII intact, moves all extremities Results - Labs CBC & Chem 7: 05/30/19 05:21 05/30/19 05:21 Labs: Laboratory Last Values WBC 10.9 K/mm3 (4.5-11.0) 05/30/19 05:21 RBC 3.37 M/mm3 (3.65-5.03) L 05/30/19 05:21 Hgb 9.4 gm/dl (10.1-14.3) L 05/30/19 05:21 Hct 28.1 % (30.3-42.9) L 05/30/19 05:21 MCV 84 fl (79-97) 05/30/19 05:21 MCH 28 pg (28-32) 05/30/19 05:21 MCHC 33 % (30-34) 05/30/19 05:21 RDW 16.9 % (13.2-15.2) H 05/30/19 05:21 Plt Count 371 K/mm3 (140-440) 05/30/19 05:21 Lymph % (Auto) 12.8 % (13.4-35.0) L 05/30/19 05:21 [place] % (Auto) 13.2 % (0.0-7.3) H 05/30/19 05:21 Eos % (Auto) 1.3 % (0.0-4.3) 05/30/19 05:21 Baso % (Auto) 0.6 % (0.0-1.8) 05/30/19 05:21 Lymph # 1.4 K/mm3 (1.2-5.4) 05/30/19 05:21 [place] # 1.4 K/mm3 (0.0-0.8) H 05/30/19 05:21 Eos # 0.1 K/mm3 (0.0-0.4) 05/30/19 05:21 Baso # 0.1 K/mm3 (0.0-0.1) 05/30/19 05:21 Seg Neutrophils % 72.1 % (40.0-70.0) H 05/30/19 05:21 Seg Neutrophils # 7.8 K/mm3 (1.8-7.7) H 05/30/19 05:21 Sodium 133 mmol/L (137-145) L 05/30/19 05:21 Potassium 3.7 mmol/L (3.6-5.0) 05/30/19 05:21 Chloride 93.5 mmol/L (98-107) L 05/30/19 05:21 Carbon Dioxide 24 mmol/L (22-30) 05/30/19 05:21 19 mmol/L 05/30/19 05:21 BUN 36 mg/dL (7-17) H 05/30/19 05:21 6.1 mg/dL (0.7-1.2) H 05/30/19 05:21 Estimated GFR 9 ml/min 05/30/19 05:21 6 % 05/30/19 05:21 Glucose 186 mg/dL (65-100) H 05/30/19 05:21 POC Glucose 180 (70-105) H 06/01/19 11:21 6.3 % (4-6) H 05/30/19 05:28 Calcium 8.4 mg/dL (8.4-10.2) 05/30/19 05:21 Active Medications - Current Medications Current Medications: Generic Name Dose Route Start Last Admin Trade Name Freq PRN Reason Stop Dose Admin Acetaminophen 650 mg 05/28/19 20:27 Tylenol PO Q4H PRN Pain MILD(1-3)/Fever >100.5/[place] Clonidine HCl 0.1 mg 05/28/19 23:30 05/29/19 16:55 Catapres PO 0.1 mg Q4H PRN Administration Hypertension Clonidine HCl 0.3 mg 05/29/19 14:00 06/01/19 13:07 Catapres PO Not Given Q8HR WALT Famotidine 10 mg 05/30/19 22:00 06/01/19 10:53 Pepcid PO 10 mg BID WALT Administration Heparin Sodium (Porcine) 3,000 unit 05/29/19 17:00 05/29/19 17:02 Heparin 10,000 Units/10 Ml IV 3,000 unit AMBER WALT Administration Sodium Chloride 100 mls @ 999 mls/hr 05/29/19 11:18 Nacl 0.9% IV AMBER PRN Hypotension Insulin Human Regular 0 units 05/30/19 22:00 06/01/19 13:07 Humulin R SUB-Q 1 units ACHS WALT Administration Protocol Morphine Sulfate 2 mg 05/28/19 22:16 06/01/19 10:53 Morphine IV 2 mg Q4H PRN Administration Pain, Moderate (4-6) Nifedipine 60 mg 05/29/19 12:00 06/01/19 10:54 Procardia Xl PO 60 mg DAILY WALT Administration Ondansetron HCl 4 mg 05/28/19 20:27 Zofran IV Q8H PRN Nausea And Vomiting Oxycodone/Acetaminophen 1 tab 05/28/19 22:16 06/01/19 07:47 Percocet 5/325 PO 1 tab Q6H PRN Administration Pain, Moderate (4-6) Sodium Chloride 10 ml 05/28/19 22:00 06/01/19 10:54 Sodium Chloride Flush Syringe 10 Ml IV 10 ml BID WALT Administration Sodium Chloride 10 ml 05/28/19 20:27 Sodium Chloride Flush Syringe 10 Ml IV PRN PRN LINE FLUSH
[2019-06-02] MEDS ORDERED: NACL 0.9% 1000 ML 0 ML ONE (05:27)
[2019-06-02 07:04] LABS: Calcium 8.6 mg/dL (8.4-10.2)
[2019-06-02 07:17] LABS: Hematocrit 30.3 % (30.3-42.9); Hemoglobin 9.8 gm/dl (10.1-14.3); Mean Corpuscular HGB Conc 33 % (30-34); Mean Corpuscular Volume 85 fl (79-97); Platelet Count 398 K/mm3 (140-440); Red Blood Count 3.58 M/mm3 (3.65-5.03); Red Cell Distribution Width 17.6 % (13.2-15.2)
[2019-06-02] MEDS: HumuLIN R SUB-Q SCH ×4 (07:30→22:05)
[2019-06-02] MEDS: CATAPRES PO SCH ×3 (08:20→22:04)
[2019-06-02] MEDS: PERCOCET 5/325 PO PRN ×2 (09:02→22:04)
--- NOTE | 2019-06-02 10:32 | Progress Note ---
Assessment and Plan Cultures: 05/30/19 Left Leg wound: MSSA, badillo susceptible 05/31/19: Blood: Gram positive Rods, 1 out 4 bottles 06/01/19 Right leg wound: in progress A/P: 44-year old female with a past medical history of ESRD, HTN, DM type 2, morbid obesity, chronic bilateral cellulitis who presents to the ED on 05/28/19 with complaints of bilateral lower leg pain, fever and missed dialysis X2. Patient stated that she had been having worsening bilateral leg pain and that she has has been doing her wound care at home for the past 2 weeks and noticed that wounds were getting worse. Admitted with: 1. Leukocytosis on admission: Improved. etiology MSSA left lower extremity. Blood cultures gram positive rods, 1 out of 4 bottles. Chest xray no consolidation. UA not done. Currently being treated with Cefazolin. 2. Gram Positive Rods Bacteremia: 1 out of 4 bottles. Likely a contaminent. 3. Bilateral Lower Extremity Cellulitis . R/L anterior leg ulceration with lymphedema. Left lower extremity wound culture grew MSSA. Right LE wound culture in progress. Follow-up Duplex Doppler . 4. ESRD on HID: antibiotics renally dosed. 5. . Type 2 Diabetes 6. . Morbid Obesity Recommendations: -discontinue vacomycin -Start Cefazolin 1 gm every 24 hours -Follow-up blood cultures for ID and susceptibility -Follow-up wound culture - follow-up Duplex doppler scan - report pending [facility] M: [id number] O:[phone] Subjective Date of service: 06/02/19 Interval history: Patient seen and examined in HD. Asleep, easily arousable. Generalized weakness. no fevers. Objective - Exam Narrative Exam: Constitutional: Alert, cooperative. Generalized weakness. No acute distress Head, Ears, Nose: Normocephalic, atraumatic. External ears, nose normal Eyes: Conjunctivae/corneas clear. No icterus. No ptosis. Neck: Supple, no meningeal signs Oral: dentition fair. No thrush. moist mucosa Cardiovascular: S1, S2 normal. Respiratory: Good air entry, clear to auscultation bilaterally GI: Soft, non-tender; bowel sounds normal. No peritoneal signs Musculoskeletal: bilateral anterior leg ulcerations. with purulent drainage, + foul odor, +lymphedema Skin: same as above Hem/Lymphatic: No palpable cervical or supraclavicular nodes. No lymphangitis Psych: Mood ok. Affect normal Neurological: Awake, alert, oriented. - Constitutional Vitals: Vital Signs Temp Pulse Resp BP Pulse Ox 98.5 F 76 20 120/64 90 06/02/19 08:35 06/02/19 10:15 06/02/19 09:02 06/02/19 10:15 06/02/19 05:21 Temperature -Last 24 Hours Temperature 98.5 F Temperature 98.5 F Temperature 98.0 F Temperature 97.2 F - Labs CBC & Chem 7: 06/02/19 06:20 06/02/19 06:20 Labs: Abnormal lab results 06/01/19 06/01/19 06/01/19 Range/Units 11:21 16:46 21:25 WBC (4.5-11.0) K/mm3 RBC (3.65-5.03) M/mm3 Hgb (10.1-14.3) gm/dl RDW (13.2-15.2) % Sodium (137-145) mmol/L Chloride (98-107) mmol/L BUN (7-17) mg/dL Creatinine (0.7-1.2) mg/dL Glucose (65-100) mg/dL POC Glucose 180 H 234 H 126 H (70-105) 06/02/19 06/02/19 06/02/19 Range/Units 06:20 06:20 07:44 WBC 11.3 H (4.5-11.0) K/mm3 RBC 3.58 L (3.65-5.03) M/mm3 Hgb 9.8 L (10.1-14.3) gm/dl RDW 17.6 H (13.2-15.2) % Sodium 132 L (137-145) mmol/L Chloride 91.8 L (98-107) mmol/L BUN 28 H (7-17) mg/dL Creatinine 5.5 H (0.7-1.2) mg/dL Glucose 161 H (65-100) mg/dL POC Glucose 174 H (70-105)
--- NOTE | 2019-06-02 11:03 | Consultation ---
History of Present Illness - Reason for Consult Consult date: 06/02/19 bilateral lower extremity venous stasis ulcers and cellulitis - History of Present Illness Patient with a history of lymphedema, end-stage renal disease missed her last 2 dialysis sessions presents with worsening leg pain and nonhealing wounds to bilateral ankles. Patient receiving dialysis at time of examination. Patient's lower legs are warm. Past History Past Medical History: dialysis, ESRD Medications and Allergies Allergies Allergy/AdvReac Type Severity Reaction Status Date / Time No Known Allergies Allergy Verified 03/12/19 12:23 Home Medications Medication Instructions Recorded Confirmed Last Taken Type NIFEdipine XL [Procardia Xl] 60 mg PO Q12HR #60 tablet 04/08/19 05/28/19 Unknown Rx cloNIDine [Catapres] 0.2 mg PO TID #90 tablet 04/08/19 05/28/19 Unknown Rx hydrALAZINE [Apresoline TAB] 100 mg PO TID #90 tab 04/08/19 05/28/19 Unknown Rx Active Meds: Active Medications Acetaminophen (Tylenol) 650 mg PO Q4H PRN PRN Reason: Pain MILD(1-3)/Fever >100.5/[place] Clonidine HCl (Catapres) 0.1 mg PO Q4H PRN PRN Reason: Hypertension Last Admin: 05/29/19 16:55 Dose: 0.1 mg Documented by: Clonidine HCl (Catapres) 0.3 mg PO Q8HR [facility] Last Admin: 06/02/19 08:20 Dose: Not Given Documented by: Famotidine (Pepcid) 10 mg PO BID [facility] Last Admin: 06/01/19 22:33 Dose: 10 mg Documented by: Heparin Sodium (Porcine) (Heparin 10,000 Units/10 Ml) 3,000 unit IV AMBER [facility] Last Admin: 05/29/19 17:02 Dose: 3,000 unit Documented by: Sodium Chloride (Nacl 0.9%) 100 mls @ 999 mls/hr IV AMBER PRN PRN Reason: Hypotension Insulin Human Isoph/Insulin Regular (Humulin 70/30) 5 unit SUB-Q BIDDIAB [facility] Last Admin: 06/02/19 08:17 Dose: 5 unit Documented by: Insulin Human Regular (Humulin R) 0 units SUB-Q [facility]; Protocol Last Admin: 06/02/19 07:30 Dose: 1 units Documented by: Morphine Sulfate (Morphine) 2 mg IV Q4H PRN PRN Reason: Pain, Moderate (4-6) Last Admin: 06/01/19 10:53 Dose: 2 mg Documented by: Nifedipine (Procardia Xl) 60 mg PO DAILY [facility] Last Admin: 06/01/19 10:54 Dose: 60 mg Documented by: Ondansetron HCl (Zofran) 4 mg IV Q8H PRN PRN Reason: Nausea And Vomiting Oxycodone/Acetaminophen (Percocet 5/325) 1 tab PO Q6H PRN PRN Reason: Pain, Moderate (4-6) Last Admin: 06/02/19 09:02 Dose: 1 tab Documented by: Sodium Chloride (Sodium Chloride Flush Syringe 10 Ml) 10 ml IV BID [facility] Last Admin: 06/01/19 22:34 Dose: 10 ml Documented by: Sodium Chloride (Sodium Chloride Flush Syringe 10 Ml) 10 ml IV PRN PRN PRN Reason: LINE FLUSH Review of Systems ROS unobtainable: due to mental status Exam - Constitutional Vitals: Temp Pulse Resp BP Pulse Ox 98.5 F 76 20 120/64 90 06/02/19 08:35 06/02/19 10:15 06/02/19 09:02 06/02/19 10:15 06/02/19 05:21 General appearance: Present: other (somnolent) - Neck Neck: Present: normal ROM - Respiratory Respiratory effort: normal - Extremities Extremities: abnormal Extremity abnormal: edema - Abdominal General gastrointestinal: Present: deferred Female genitourinary: Present: deferred - Rectal Rectal Exam: deferred Results - Labs CBC & Chem 7: 06/02/19 06:20 06/02/19 06:20 Labs: Abnormal lab results 06/01/19 06/01/19 06/01/19 Range/Units 11:21 16:46 21:25 WBC (4.5-11.0) K/mm3 RBC (3.65-5.03) M/mm3 Hgb (10.1-14.3) gm/dl RDW (13.2-15.2) % Sodium (137-145) mmol/L Chloride (98-107) mmol/L BUN (7-17) mg/dL Creatinine (0.7-1.2) mg/dL Glucose (65-100) mg/dL POC Glucose 180 H 234 H 126 H (70-105) 06/02/19 06/02/19 06/02/19 Range/Units 06:20 06:20 07:44 WBC 11.3 H (4.5-11.0) K/mm3 RBC 3.58 L (3.65-5.03) M/mm3 Hgb 9.8 L (10.1-14.3) gm/dl RDW 17.6 H (13.2-15.2) % Sodium 132 L (137-145) mmol/L Chloride 91.8 L (98-107) mmol/L BUN 28 H (7-17) mg/dL Creatinine 5.5 H (0.7-1.2) mg/dL Glucose 161 H (65-100) mg/dL POC Glucose 174 H (70-105) Assessment and Plan A patient with a history of end-stage renal disease who missed to dialysis sessions. She has baseline lymphedema and likely venous insufficiency. She will develop volume overload secondary to missing dialysis which will worsen her leg pain. Patient does need involvement of wound care and likely outpatient wound care until her ulcers heal. We will obtain a venous ultrasound with reflux for the patient is hospitalized.
[2019-06-02 11:28] LABS: Total Cells Counted 100
[2019-06-02 11:29] LABS: Anisocytosis 1+; Large Platelets Rare; Macrocytosis Rare; Platelet Estimate Consistent w Auto; Poikilocytosis 1+; Target Cells 2+
[2019-06-02] MEDS: MORPHINE IV PRN (13:54)
[2019-06-02] MEDS: SODIUM CHLORIDE FLUSH SYRINGE 10 ML IV SCH ×2 (13:55→22:05)
--- NOTE | 2019-06-02 15:24 | Progress Note ---
Assessment and Plan Assessment * End-stage renal disease * Bilateral LE wound infection --Wound cx: MSSA * Calciphylaxis * Hypontaremia * Anemia secondary to ESRD * Peripheral edema * Medical noncompliance Plan: * Continue hemodialysis MWF * UF as tolerated * Abx per primary team * Have discussed with client services vice president. Recommend HBO treatment upon discharge. * Will arrange Sodium Thiosulfate at outpatient dialysis clinic * Epogen TIW prn * Renal diet * Dose medications for renal function Subjective Date of service: 06/02/19 Interval history: Patient reports chills today. She is afebrile. Objective - Vital Signs Vital signs: Vital Signs - 12hr 06/02/19 06/02/19 06/02/19 05:21 08:35 08:40 Temperature 98.5 F 98.5 F Pulse Rate 78 78 78 Respiratory 20 20 Rate Blood Pressure 107/63 136/75 109/87 O2 Sat by Pulse 90 Oximetry 06/02/19 06/02/19 06/02/19 08:45 09:00 09:02 Temperature Pulse Rate 76 77 Respiratory 20 Rate Blood Pressure 125/70 128/71 O2 Sat by Pulse Oximetry 06/02/19 06/02/19 06/02/19 09:15 09:30 09:45 Temperature Pulse Rate 82 81 79 Respiratory Rate Blood Pressure 130/67 118/58 131/57 O2 Sat by Pulse Oximetry 06/02/19 06/02/19 06/02/19 09:46 10:01 10:15 Temperature Pulse Rate 79 78 76 Respiratory Rate Blood Pressure 131/57 109/64 120/64 O2 Sat by Pulse Oximetry 06/02/19 06/02/19 06/02/19 10:30 10:45 11:09 Temperature Pulse Rate 77 76 77 Respiratory Rate Blood Pressure 129/74 123/62 121/69 O2 Sat by Pulse Oximetry 06/02/19 06/02/19 06/02/19 11:15 11:30 11:47 Temperature Pulse Rate 81 77 73 Respiratory Rate Blood Pressure 131/71 124/68 119/65 O2 Sat by Pulse Oximetry 06/02/19 06/02/19 12:00 14:08 Temperature 98.5 F Pulse Rate 82 89 Respiratory 20 Rate Blood Pressure 139/68 147/81 O2 Sat by Pulse Oximetry - General Appearance General appearance: well-developed, well-nourished, obese EENT: ATNC Respiratory: Present: Clear to Ascultation Cardiology: regular, S1S2 Gastrointestinal: obese Neurologic: alert and oriented x3 Psychiatric: cooperative - Lab 06/02/19 06:20 06/02/19 06:20 Most recent lab results Calcium 8.6 mg/dL (8.4-10.2) 06/02/19 06:20 Medications & Allergies - Medications Allergies/Adverse Reactions: Allergies No Known Allergies Allergy (Verified 03/12/19 12:23) Home Medications: Home Medications Medication Instructions Recorded Confirmed Last Taken Type NIFEdipine XL [Procardia Xl] 60 mg PO Q12HR #60 tablet 04/08/19 05/28/19 Unknown Rx cloNIDine [Catapres] 0.2 mg PO TID #90 tablet 04/08/19 05/28/19 Unknown Rx hydrALAZINE [Apresoline TAB] 100 mg PO TID #90 tab 04/08/19 05/28/19 Unknown Rx Active Medications: Generic Name Dose Route Start Last Admin Trade Name Freq PRN Reason Stop Dose Admin Acetaminophen 650 mg 05/28/19 20:27 Tylenol PO Q4H PRN Pain MILD(1-3)/Fever >100.5/[place] Clonidine HCl 0.1 mg 05/28/19 23:30 05/29/19 16:55 Catapres PO 0.1 mg Q4H PRN Administration Hypertension Clonidine HCl 0.3 mg 05/29/19 14:00 06/02/19 08:20 Catapres PO Not Given Q8HR [facility] Famotidine 10 mg 05/30/19 22:00 06/01/19 22:33 Pepcid PO 10 mg BID [facility] Administration Heparin Sodium (Porcine) 3,000 unit 05/29/19 17:00 05/29/19 17:02 Heparin 10,000 Units/10 Ml IV 3,000 unit AMBER [facility] Administration Sodium Chloride 100 mls @ 999 mls/hr 05/29/19 11:18 Nacl 0.9% IV AMBER PRN Hypotension Insulin Human Isoph/Insulin Regular 5 unit 06/02/19 08:00 06/02/19 08:17 Humulin 70/30 SUB-Q 5 unit BIDDIAB [facility] Administration Insulin Human Regular 0 units 05/30/19 22:00 06/02/19 11:30 Humulin R SUB-Q Not Given ACHS [facility] Protocol Morphine Sulfate 2 mg 05/28/19 22:16 06/02/19 13:54 Morphine IV 2 mg Q4H PRN Administration Pain, Moderate (4-6) Nifedipine 60 mg 05/29/19 12:00 06/01/19 10:54 Procardia Xl PO 60 mg DAILY [facility] Administration Ondansetron HCl 4 mg 05/28/19 20:27 Zofran IV Q8H PRN Nausea And Vomiting Oxycodone/Acetaminophen 1 tab 05/28/19 22:16 06/02/19 09:02 Percocet 5/325 PO 1 tab Q6H PRN Administration Pain, Moderate (4-6) Sodium Chloride 10 ml 05/28/19 22:00 06/02/19 13:55 Sodium Chloride Flush Syringe 10 Ml IV 10 ml BID [facility] Administration Sodium Chloride 10 ml 05/28/19 20:27 Sodium Chloride Flush Syringe 10 Ml IV PRN PRN LINE FLUSH
[2019-06-02] MEDS: ANCEF/NS 1 GM/50 ML 1 GM/50 ML BAG IV SCH (16:46)
[2019-06-02] MEDS: PEPCID PO SCH ×2 (16:54→22:05)
[2019-06-02] MEDS: PROCARDIA XL PO SCH (16:54)
--- NOTE | 2019-06-02 17:03 | Vascular Lab Report ---
DUPLEX DOPPLER LOWER EXTREMITY VEINS, BILATERAL INDICATION: bilateral venous stasis ulcers. TECHNIQUE: Duplex doppler imaging was performed through the veins of both lower extremities using venous azra shayy and other maneuvers. COMPARISON: None available. FINDINGS: Right Common Femoral vein: Negative. Right Superficial Femoral vein: Negative. Right Popliteal vein: Negative. Right Calf veins: Negative. Left Common Femoral vein: Negative. Left Superficial Femoral vein: Negative. Left Popliteal vein: Negative. Left Calf veins: Negative. Additional findings: Bilateral calf edema is noted. IMPRESSION: 1. The exam is limited due to patient body habitus and pain threshold. Accounting for this, no sonogr aphic evidence for DVT in either lower extremity. Signer Name: Martínez Alves MD Signed: 06/02/2019 4:59 PM Workstation Name: [id number]
--- NOTE | 2019-06-02 17:53 | Progress Note ---
Assessment and Plan Assessment and plan: 1. Leukocytosis with Sepsis, POA - likely from LE wound infection 2. Bilateral LE with cellulites 3. Bilateral LE chronic nonhealing wound with acute infection - wound cx growing Staph Aureus 4. ESRD on HD MWF 5. DM type II 6. Anemia (likely due to CKD) 7. Morbid obesity due top access calorie 8. s/p fall Plan: Monitor at [facility] change clindamycin to vanc as wound cx growing Staph Aureus - final Cx pending Wounds care consulted - pending, follow final blood Cx/wound cx result Resumed home meds Monitor blood glucose ACHS, A1c 6.3 Consulted nephrology for HD management Consulted ID for further recommendation Plans discussed with patient PT eval - pending Brief History: Patient is a 44-year-old female with PMHx of ESRD, CHF, HTN, DM type II, morbid obesity, chronic bilateral cellulitis who presents to the ER with complaint bilateral lower legs pain, fever and missed dialysis x2. Admitted for SIRS/sepsis and infected LE wound, cx growing Staph Aureus, Id consulted, PT eval pending History Interval history: Seen and examined medical records reviewed Patient feels slightly better complaints of leg pain Alert awake oriented vital signs noted Hospitalist Physical - Constitutional Vitals: Temp Pulse Resp BP Pulse Ox 98.5 F 89 20 147/81 90 06/02/19 14:08 06/02/19 14:08 06/02/19 14:08 06/02/19 14:08 06/02/19 05:21 General appearance: Present: no acute distress, well-nourished, obese (morbidly obese) - EENT Eyes: Present: PERRL, EOM intact - Neck Neck: Present: supple, normal ROM - Respiratory Respiratory effort: normal Respiratory: bilateral: diminished, negative: rales, rhonchi, wheezing - Cardiovascular Rhythm: regular Heart Sounds: Present: S1 & S2 - Extremities Extremity abnormal: edema, erythema, other ( bilateral wounds) - Abdominal General gastrointestinal: soft, non-tender, non-distended, normal bowel sounds - Integumentary Integumentary: Present: clear, warm - Psychiatric Psychiatric: appropriate mood/affect, cooperative - Neurologic Neurologic: moves all extremities Results - Labs CBC & Chem 7: 06/02/19 06:20 06/02/19 06:20 Labs: Laboratory Last Values WBC 11.3 K/mm3 (4.5-11.0) H 06/02/19 06:20 RBC 3.58 M/mm3 (3.65-5.03) L 06/02/19 06:20 Hgb 9.8 gm/dl (10.1-14.3) L 06/02/19 06:20 Hct 30.3 % (30.3-42.9) 06/02/19 06:20 MCV 85 fl (79-97) 06/02/19 06:20 MCH 28 pg (28-32) 06/02/19 06:20 MCHC 33 % (30-34) 06/02/19 06:20 RDW 17.6 % (13.2-15.2) H 06/02/19 06:20 Plt Count 398 K/mm3 (140-440) 06/02/19 06:20 Lymph % (Auto) 12.8 % (13.4-35.0) L 05/30/19 05:21 [place] % (Auto) 13.2 % (0.0-7.3) H 05/30/19 05:21 Eos % (Auto) 1.3 % (0.0-4.3) 05/30/19 05:21 Baso % (Auto) 0.6 % (0.0-1.8) 05/30/19 05:21 Lymph # 1.4 K/mm3 (1.2-5.4) 05/30/19 05:21 [place] # 1.4 K/mm3 (0.0-0.8) H 05/30/19 05:21 Eos # 0.1 K/mm3 (0.0-0.4) 05/30/19 05:21 Baso # 0.1 K/mm3 (0.0-0.1) 05/30/19 05:21 Add Manual Diff Complete 06/02/19 06:20 Total Counted 100 06/02/19 06:20 Seg Neutrophils % 72.1 % (40.0-70.0) H 05/30/19 05:21 Seg Neuts % (Manual) 78.0 % (40.0-70.0) H 06/02/19 06:20 0 % 06/02/19 06:20 13.0 % (13.4-35.0) L 06/02/19 06:20 Reactive Lymphs % (Man) 0 % 06/02/19 06:20 3.0 % (0.0-7.3) 06/02/19 06:20 1.0 % (0.0-4.3) 06/02/19 06:20 1.0 % (0.0-1.8) 06/02/19 06:20 4.0 % 06/02/19 06:20 0 % 06/02/19 06:20 0 % 06/02/19 06:20 0 % 06/02/19 06:20 Nucleated RBC % Not Reportable 06/02/19 06:20 Seg Neutrophils # 7.8 K/mm3 (1.8-7.7) H 05/30/19 05:21 Seg Neutrophils # Man 8.8 K/mm3 (1.8-7.7) H 06/02/19 06:20 Band Neutrophils # 0.0 K/mm3 06/02/19 06:20 1.5 K/mm3 (1.2-5.4) 06/02/19 06:20 Abs React Lymphs (Man) 0.0 K/mm3 06/02/19 06:20 0.3 K/mm3 (0.0-0.8) 06/02/19 06:20 0.1 K/mm3 (0.0-0.4) 06/02/19 06:20 0.1 K/mm3 (0.0-0.1) 06/02/19 06:20 0.5 K/mm3 06/02/19 06:20 0.0 K/mm3 06/02/19 06:20 0.0 K/mm3 06/02/19 06:20 Blast Cells # 0.0 K/mm3 06/02/19 06:20 WBC Morphology Not Reportable 06/02/19 06:20 Hypersegmented Neuts Not Reportable 06/02/19 06:20 Hyposegmented Neuts Not Reportable 06/02/19 06:20 Hypogranular Neuts Not Reportable 06/02/19 06:20 Not Reportable 06/02/19 06:20 Not Reportable 06/02/19 06:20 Not Reportable 06/02/19 06:20 Not Reportable 06/02/19 06:20 Not Reportable 06/02/19 06:20 Not Reportable 06/02/19 06:20 Consistent w auto 06/02/19 06:20 Not Reportable 06/02/19 06:20 Plt Clumps, EDTA Not Reportable 06/02/19 06:20 Rare 06/02/19 06:20 Not Reportable 06/02/19 06:20 Not Reportable 06/02/19 06:20 Plt Morphology Comment Not Reportable 06/02/19 06:20 RBC Morphology Not Reportable 06/02/19 06:20 Dimorphic RBCs Not Reportable 06/02/19 06:20 Not Reportable 06/02/19 06:20 Not Reportable 06/02/19 06:20 1+ 06/02/19 06:20 1+ 06/02/19 06:20 Not Reportable 06/02/19 06:20 Rare 06/02/19 06:20 Not Reportable 06/02/19 06:20 Not Reportable 06/02/19 06:20 Not Reportable 06/02/19 06:20 2+ 06/02/19 06:20 Not Reportable 06/02/19 06:20 Not Reportable 06/02/19 06:20 Not Reportable 06/02/19 06:20 Not Reportable 06/02/19 06:20 Not Reportable 06/02/19 06:20 Not Reportable 06/02/19 06:20 Not Reportable 06/02/19 06:20 Not Reportable 06/02/19 06:20 Not Reportable 06/02/19 06:20 Acanthocytes (Spur) Not Reportable 06/02/19 06:20 Rouleaux Not Reportable 06/02/19 06:20 Not Reportable 06/02/19 06:20 Not Reportable 06/02/19 06:20 Not Reportable 06/02/19 06:20 Not Reportable 06/02/19 06:20 Hem Pathologist Commnt No 06/02/19 06:20 Sodium 132 mmol/L (137-145) L 06/02/19 06:20 Potassium 4.6 mmol/L (3.6-5.0) D 06/02/19 06:20 Chloride 91.8 mmol/L (98-107) L 06/02/19 06:20 Carbon Dioxide 25 mmol/L (22-30) 06/02/19 06:20 20 mmol/L 06/02/19 06:20 BUN 28 mg/dL (7-17) H 06/02/19 06:20 5.5 mg/dL (0.7-1.2) H 06/02/19 06:20 Estimated GFR 10 ml/min 06/02/19 06:20 5 % 06/02/19 06:20 Glucose 161 mg/dL (65-100) H 06/02/19 06:20 POC Glucose 173 (70-105) H 06/02/19 17:15 6.3 % (4-6) H 05/30/19 05:28 Calcium 8.6 mg/dL (8.4-10.2) 06/02/19 06:20 Active Medications - Current Medications Current Medications: Generic Name Dose Route Start Last Admin Trade Name Freq PRN Reason Stop Dose Admin Acetaminophen 650 mg 05/28/19 20:27 Tylenol PO Q4H PRN Pain MILD(1-3)/Fever >100.5/[place] Clonidine HCl 0.1 mg 05/28/19 23:30 05/29/19 16:55 Catapres PO 0.1 mg Q4H PRN Administration Hypertension Clonidine HCl 0.3 mg 05/29/19 14:00 06/02/19 15:50 Catapres PO Not Given Q8HR [facility] Famotidine 10 mg 05/30/19 22:00 06/02/19 16:54 Pepcid PO 10 mg BID [facility] Administration Heparin Sodium (Porcine) 3,000 unit 05/29/19 17:00 05/29/19 17:02 Heparin 10,000 Units/10 Ml IV 3,000 unit AMBER [facility] Administration Sodium Chloride 100 mls @ 999 mls/hr 05/29/19 11:18 Nacl 0.9% IV AMBER PRN Hypotension Cefazolin Sodium 1 gm in 50 mls @ 100 mls/hr 06/02/19 16:30 06/02/19 16:46 Ancef/Ns 1 Gm/50 Ml IV 100 mls/hr Q24H [facility] Administration Protocol Insulin Human Isoph/Insulin Regular 5 unit 06/02/19 08:00 06/02/19 17:44 Humulin 70/30 SUB-Q 5 unit BIDDIAB [facility] Administration Insulin Human Regular 0 units 05/30/19 22:00 06/02/19 16:30 Humulin R SUB-Q 1 units ACHS [facility] Administration Protocol Morphine Sulfate 2 mg 05/28/19 22:16 06/02/19 13:54 Morphine IV 2 mg Q4H PRN Administration Pain, Moderate (4-6) Nifedipine 60 mg 05/29/19 12:00 06/02/19 16:54 Procardia Xl PO 60 mg DAILY [facility] Administration Ondansetron HCl 4 mg 05/28/19 20:27 06/02/19 15:51 Zofran IV 4 mg Q8H PRN Administration Nausea And Vomiting Oxycodone/Acetaminophen 1 tab 05/28/19 22:16 06/02/19 09:02 Percocet 5/325 PO 1 tab Q6H PRN Administration Pain, Moderate (4-6) Sodium Chloride 10 ml 05/28/19 22:00 06/02/19 13:55 Sodium Chloride Flush Syringe 10 Ml IV 10 ml BID [facility] Administration Sodium Chloride 10 ml 05/28/19 20:27 Sodium Chloride Flush Syringe 10 Ml IV PRN PRN LINE FLUSH
[2019-06-03] MEDS: CATAPRES PO SCH ×3 (05:25→22:34)
[2019-06-03] MEDS: MORPHINE IV PRN ×2 (07:57→17:51)
[2019-06-03] MEDS: HumuLIN R SUB-Q SCH ×4 (08:00→22:34)
--- NOTE | 2019-06-03 08:51 | Progress Note ---
Assessment and Plan Assessment * End-stage renal disease * Bilateral LE wound infection --Wound cx: MSSA * Calciphylaxis * Hypontaremia * Anemia secondary to ESRD * Peripheral edema * Medical noncompliance Plan: * Continue hemodialysis MWF * UF as tolerated * Abx per primary team - currently receiving Ancef * Have discussed with restaurant cashier. Recommend HBO treatment upon discharge. * Will arrange Sodium Thiosulfate at outpatient dialysis clinic * Epogen TIW prn * Renal diet * Dose medications for renal function Subjective Date of service: 06/03/19 Interval history: Patient has no complaints Objective - Vital Signs Vital signs: Vital Signs - 12hr 06/02/19 06/02/19 06/03/19 22:03 22:04 01:02 Temperature 98.0 F Pulse Rate 87 89 Respiratory 20 18 18 Rate Blood Pressure 120/60 120/60 116/64 O2 Sat by Pulse 92 Oximetry 06/03/19 05:25 Temperature Pulse Rate 94 H Respiratory Rate Blood Pressure 138/69 O2 Sat by Pulse Oximetry - General Appearance General appearance: well-developed, well-nourished, obese EENT: ATNC Respiratory: Present: Clear to Ascultation Cardiology: regular, S1S2 Gastrointestinal: no tenderness, no distended, obese Integumentary: other (bilateral LE bandaged) Psychiatric: cooperative - Lab 06/02/19 06:20 06/02/19 06:20 Most recent lab results Calcium 8.6 mg/dL (8.4-10.2) 06/02/19 06:20 Medications & Allergies - Medications Allergies/Adverse Reactions: Allergies No Known Allergies Allergy (Verified 03/12/19 12:23) Home Medications: Home Medications Medication Instructions Recorded Confirmed Last Taken Type NIFEdipine XL [Procardia Xl] 60 mg PO Q12HR #60 tablet 04/08/19 05/28/19 Unknown Rx cloNIDine [Catapres] 0.2 mg PO TID #90 tablet 04/08/19 05/28/19 Unknown Rx hydrALAZINE [Apresoline TAB] 100 mg PO TID #90 tab 04/08/19 05/28/19 Unknown Rx Active Medications: Generic Name Dose Route Start Last Admin Trade Name Freq PRN Reason Stop Dose Admin Acetaminophen 650 mg 05/28/19 20:27 Tylenol PO Q4H PRN Pain MILD(1-3)/Fever >100.5/[place] Clonidine HCl 0.1 mg 05/28/19 23:30 05/29/19 16:55 Catapres PO 0.1 mg Q4H PRN Administration Hypertension Clonidine HCl 0.3 mg 05/29/19 14:00 06/03/19 05:25 Catapres PO 0.3 mg Q8HR WALT Administration Famotidine 10 mg 05/30/19 22:00 06/02/19 22:05 Pepcid PO 10 mg BID WALT Administration Heparin Sodium (Porcine) 3,000 unit 05/29/19 17:00 05/29/19 17:02 Heparin 10,000 Units/10 Ml IV 3,000 unit AMBER WALT Administration Sodium Chloride 100 mls @ 999 mls/hr 05/29/19 11:18 Nacl 0.9% IV AMBER PRN Hypotension Cefazolin Sodium 1 gm in 50 mls @ 100 mls/hr 06/02/19 16:30 06/02/19 16:46 Ancef/Ns 1 Gm/50 Ml IV 100 mls/hr Q24H WALT Administration Protocol Insulin Human Isoph/Insulin Regular 5 unit 06/02/19 08:00 06/02/19 17:44 Humulin 70/30 SUB-Q 5 unit BIDDIAB WALT Administration Insulin Human Regular 0 units 05/30/19 22:00 06/03/19 08:00 Humulin R SUB-Q Not Given ACHS [facility] Protocol Morphine Sulfate 2 mg 05/28/19 22:16 06/03/19 07:57 Morphine IV 2 mg Q4H PRN Administration Pain, Moderate (4-6) Nifedipine 60 mg 05/29/19 12:00 06/02/19 16:54 Procardia Xl PO 60 mg DAILY WALT Administration Ondansetron HCl 4 mg 05/28/19 20:27 06/02/19 15:51 Zofran IV 4 mg Q8H PRN Administration Nausea And Vomiting Oxycodone/Acetaminophen 1 tab 05/28/19 22:16 06/02/19 22:04 Percocet 5/325 PO 1 tab Q6H PRN Administration Pain, Moderate (4-6) Sodium Chloride 10 ml 05/28/19 22:00 06/02/19 22:05 Sodium Chloride Flush Syringe 10 Ml IV 10 ml BID WALT Administration Sodium Chloride 10 ml 05/28/19 20:27 Sodium Chloride Flush Syringe 10 Ml IV PRN PRN LINE FLUSH
--- NOTE | 2019-06-03 09:07 | Progress Note ---
Assessment and Plan Assessment and plan: -- Leukocytosis with Sepsis, POA - likely from LE wound infection/MSSA bacteremia Evaluated the patient, on IV antibiotics -- Bilateral LE with cellulites/chronic lymphedema Supportive care, vascular/IR evaluation noted and appreciated -- Bilateral LE chronic nonhealing wound with acute infection wound cx growing Staph Aureus ID following continue current antibiotics -- ESRD on HD MWF; nephrology following --DM type II; Recheck sliding scale coverage and ADA diet and insulin A1c 6.3 --Anemia of chronic kidney disease; Monitor H&H and transfuse as needed --Morbid obesity; BMI 55 Dietary modification and exercise as tolerated and weight reduction when medically stable Nutrition consult --DVT prophylaxis; Lovenox PT evaluation and treatment Continue wound care Consults and recommendations noted and appreciated Monitor closely and adjust the management as needed Disposition; discharge patient in medically stable Brief History: Patient is a 44-year-old female with PMHx of ESRD, CHF, HTN, DM type II, morbid obesity, chronic bilateral cellulitis who presents to the ER with complaint bilateral lower legs pain, fever and missed dialysis x2. Admitted for SIRS/sepsis and infected LE wound, cx growing Staph Aureus, ID and vascular following . History Interval history: Patient Seen and examined medical records reviewed Patient complains of leg pain Venous Doppler negative for DVT Alert awake oriented Vital signs noted Hospitalist Physical - Constitutional Vitals: Temp Pulse Resp BP Pulse Ox 98.0 F 94 H 18 138/69 92 06/03/19 01:02 06/03/19 05:25 06/03/19 01:02 06/03/19 05:25 06/03/19 01:02 General appearance: Present: no acute distress, well-nourished, obese (morbidly obese) - EENT Eyes: Present: PERRL, EOM intact - Neck Neck: Present: supple, normal ROM - Respiratory Respiratory effort: normal Respiratory: bilateral: diminished, rales, negative: rhonchi, wheezing - Cardiovascular Rhythm: regular Heart Sounds: Present: S1 & S2 - Extremities Extremity abnormal: edema, other (infected wounds bilateral) - Abdominal General gastrointestinal: soft, non-tender, non-distended, normal bowel sounds - Integumentary Integumentary: Present: clear, erythema - Psychiatric Psychiatric: appropriate mood/affect, cooperative - Neurologic Neurologic: moves all extremities Results - Labs CBC & Chem 7: 06/02/19 06:20 06/02/19 06:20 Labs: Laboratory Last Values WBC 11.3 K/mm3 (4.5-11.0) H 06/02/19 06:20 RBC 3.58 M/mm3 (3.65-5.03) L 06/02/19 06:20 Hgb 9.8 gm/dl (10.1-14.3) L 06/02/19 06:20 Hct 30.3 % (30.3-42.9) 06/02/19 06:20 MCV 85 fl (79-97) 06/02/19 06:20 MCH 28 pg (28-32) 06/02/19 06:20 MCHC 33 % (30-34) 06/02/19 06:20 RDW 17.6 % (13.2-15.2) H 06/02/19 06:20 Plt Count 398 K/mm3 (140-440) 06/02/19 06:20 Lymph % (Auto) 12.8 % (13.4-35.0) L 05/30/19 05:21 [place] % (Auto) 13.2 % (0.0-7.3) H 05/30/19 05:21 Eos % (Auto) 1.3 % (0.0-4.3) 05/30/19 05:21 Baso % (Auto) 0.6 % (0.0-1.8) 05/30/19 05:21 Lymph # 1.4 K/mm3 (1.2-5.4) 05/30/19 05:21 [place] # 1.4 K/mm3 (0.0-0.8) H 05/30/19 05:21 Eos # 0.1 K/mm3 (0.0-0.4) 05/30/19 05:21 Baso # 0.1 K/mm3 (0.0-0.1) 05/30/19 05:21 Add Manual Diff Complete 06/02/19 06:20 Total Counted 100 06/02/19 06:20 Seg Neutrophils % 72.1 % (40.0-70.0) H 05/30/19 05:21 Seg Neuts % (Manual) 78.0 % (40.0-70.0) H 06/02/19 06:20 0 % 06/02/19 06:20 13.0 % (13.4-35.0) L 06/02/19 06:20 Reactive Lymphs % (Man) 0 % 06/02/19 06:20 3.0 % (0.0-7.3) 06/02/19 06:20 1.0 % (0.0-4.3) 06/02/19 06:20 1.0 % (0.0-1.8) 06/02/19 06:20 4.0 % 06/02/19 06:20 0 % 06/02/19 06:20 0 % 06/02/19 06:20 0 % 06/02/19 06:20 Nucleated RBC % Not Reportable 06/02/19 06:20 Seg Neutrophils # 7.8 K/mm3 (1.8-7.7) H 05/30/19 05:21 Seg Neutrophils # Man 8.8 K/mm3 (1.8-7.7) H 06/02/19 06:20 Band Neutrophils # 0.0 K/mm3 06/02/19 06:20 1.5 K/mm3 (1.2-5.4) 06/02/19 06:20 Abs React Lymphs (Man) 0.0 K/mm3 06/02/19 06:20 0.3 K/mm3 (0.0-0.8) 06/02/19 06:20 0.1 K/mm3 (0.0-0.4) 06/02/19 06:20 0.1 K/mm3 (0.0-0.1) 06/02/19 06:20 0.5 K/mm3 06/02/19 06:20 0.0 K/mm3 06/02/19 06:20 0.0 K/mm3 06/02/19 06:20 Blast Cells # 0.0 K/mm3 06/02/19 06:20 WBC Morphology Not Reportable 06/02/19 06:20 Hypersegmented Neuts Not Reportable 06/02/19 06:20 Hyposegmented Neuts Not Reportable 06/02/19 06:20 Hypogranular Neuts Not Reportable 06/02/19 06:20 Not Reportable 06/02/19 06:20 Not Reportable 06/02/19 06:20 Not Reportable 06/02/19 06:20 Not Reportable 06/02/19 06:20 Not Reportable 06/02/19 06:20 Not Reportable 06/02/19 06:20 Consistent w auto 06/02/19 06:20 Not Reportable 06/02/19 06:20 Plt Clumps, EDTA Not Reportable 06/02/19 06:20 Rare 06/02/19 06:20 Not Reportable 06/02/19 06:20 Not Reportable 06/02/19 06:20 Plt Morphology Comment Not Reportable 06/02/19 06:20 RBC Morphology Not Reportable 06/02/19 06:20 Dimorphic RBCs Not Reportable 06/02/19 06:20 Not Reportable 06/02/19 06:20 Not Reportable 06/02/19 06:20 1+ 06/02/19 06:20 1+ 06/02/19 06:20 Not Reportable 06/02/19 06:20 Rare 06/02/19 06:20 Not Reportable 06/02/19 06:20 Not Reportable 06/02/19 06:20 Not Reportable 06/02/19 06:20 2+ 06/02/19 06:20 Not Reportable 06/02/19 06:20 Not Reportable 06/02/19 06:20 Not Reportable 06/02/19 06:20 Not Reportable 06/02/19 06:20 Not Reportable 06/02/19 06:20 Not Reportable 06/02/19 06:20 Not Reportable 06/02/19 06:20 Not Reportable 06/02/19 06:20 Not Reportable 06/02/19 06:20 Acanthocytes (Spur) Not Reportable 06/02/19 06:20 Rouleaux Not Reportable 06/02/19 06:20 Not Reportable 06/02/19 06:20 Not Reportable 06/02/19 06:20 Not Reportable 06/02/19 06:20 Not Reportable 06/02/19 06:20 Hem Pathologist Commnt No 06/02/19 06:20 Sodium 132 mmol/L (137-145) L 06/02/19 06:20 Potassium 4.6 mmol/L (3.6-5.0) D 06/02/19 06:20 Chloride 91.8 mmol/L (98-107) L 06/02/19 06:20 Carbon Dioxide 25 mmol/L (22-30) 06/02/19 06:20 20 mmol/L 06/02/19 06:20 BUN 28 mg/dL (7-17) H 06/02/19 06:20 5.5 mg/dL (0.7-1.2) H 06/02/19 06:20 Estimated GFR 10 ml/min 06/02/19 06:20 5 % 06/02/19 06:20 Glucose 161 mg/dL (65-100) H 06/02/19 06:20 POC Glucose 147 (70-105) H 06/03/19 08:17 6.3 % (4-6) H 05/30/19 05:28 Calcium 8.6 mg/dL (8.4-10.2) 06/02/19 06:20 Random Vancomycin 9.3 ug/mL (0-40.0) 06/03/19 04:28 Active Medications - Current Medications Current Medications: Generic Name Dose Route Start Last Admin Trade Name Freq PRN Reason Stop Dose Admin Acetaminophen 650 mg 05/28/19 20:27 Tylenol PO Q4H PRN Pain MILD(1-3)/Fever >100.5/[place] Clonidine HCl 0.1 mg 05/28/19 23:30 05/29/19 16:55 Catapres PO 0.1 mg Q4H PRN Administration Hypertension Clonidine HCl 0.3 mg 05/29/19 14:00 06/03/19 05:25 Catapres PO 0.3 mg Q8HR WALT Administration Famotidine 10 mg 05/30/19 22:00 06/02/19 22:05 Pepcid PO 10 mg BID WALT Administration Heparin Sodium (Porcine) 3,000 unit 05/29/19 17:00 05/29/19 17:02 Heparin 10,000 Units/10 Ml IV 3,000 unit AMBER WALT Administration Sodium Chloride 100 mls @ 999 mls/hr 05/29/19 11:18 Nacl 0.9% IV AMBER PRN Hypotension Cefazolin Sodium 1 gm in 50 mls @ 100 mls/hr 06/02/19 16:30 06/02/19 16:46 Ancef/Ns 1 Gm/50 Ml IV 100 mls/hr Q24H WALT Administration Protocol Insulin Human Isoph/Insulin Regular 5 unit 06/02/19 08:00 06/03/19 07:30 Humulin 70/30 SUB-Q 5 unit BIDDIAB WALT Administration Insulin Human Regular 0 units 05/30/19 22:00 06/03/19 08:00 Humulin R SUB-Q Not Given ACHS [facility] Protocol Morphine Sulfate 2 mg 05/28/19 22:16 06/03/19 07:57 Morphine IV 2 mg Q4H PRN Administration Pain, Moderate (4-6) Nifedipine 60 mg 05/29/19 12:00 06/02/19 16:54 Procardia Xl PO 60 mg DAILY WALT Administration Ondansetron HCl 4 mg 05/28/19 20:27 06/02/19 15:51 Zofran IV 4 mg Q8H PRN Administration Nausea And Vomiting Oxycodone/Acetaminophen 1 tab 05/28/19 22:16 06/02/19 22:04 Percocet 5/325 PO 1 tab Q6H PRN Administration Pain, Moderate (4-6) Sodium Chloride 10 ml 05/28/19 22:00 06/02/19 22:05 Sodium Chloride Flush Syringe 10 Ml IV 10 ml BID WALT Administration Sodium Chloride 10 ml 05/28/19 20:27 Sodium Chloride Flush Syringe 10 Ml IV PRN PRN LINE FLUSH
--- NOTE | 2019-06-03 09:24 | Progress Note ---
Assessment and Plan Cultures: 05/30/19 Left Leg wound: MSSA, badillo susceptible 05/31/19: Blood: Gram positive Rods; Diptheroids, 1/4 06/01/19 Right leg wound: no growth A/P: 44-year old female with a past medical history of ESRD, HTN, DM type 2, morbid obesity, chronic bilateral cellulitis who presents to the ED on 05/28/19 with complaints of bilateral lower leg pain, fever and missed dialysis X2. Patient stated that she had been having worsening bilateral leg pain and that she has has been doing her wound care at home for the past 2 weeks and noticed that wounds were getting worse. Admitted with: 1. Leukocytosis on admission: Improved. etiology MSSA left lower extremity. B lood cultures gram positive rods, 1 out of 4 bottles. Chest xray no consolidation. UA not done. Currently being treated with Cefazolin. 2. Gram Positive Rods Bacteremia: Diptheroids. Contaminant 3. Bilateral Lower Extremity Cellulitis . R/L anterior leg ulceration with lymphedema. Left lower extremity wound culture grew MSSA. Right LE wound no growth. Bilateral duplex doppler lower extremity unremarkable. 4. ESRD on HID: antibiotics renally dosed. 5. . Type 2 Diabetes 6. . Morbid Obesity Recommendations: -Continue Cefazolin 1 gm every 24 hours -Anticipate discharge on Keflex 250mg TID for 7 days [facility] M: [phone] O:[phone] Subjective Date of service: 06/03/19 Interval history: Patient seen and examined . Awake. Easy to arouse. Reports generalized weakness. No pain, No fevers Objective - Exam Narrative Exam: Constitutional: Alert, cooperative. Generalized weakness. No acute distress Head, Ears, Nose: Normocephalic, atraumatic. External ears, nose normal Eyes: Conjunctivae/corneas clear. No icterus. No ptosis. Neck: Supple, no meningeal signs Oral: dentition fair. No thrush. moist mucosa Cardiovascular: S1, S2 normal. Respiratory: Good air entry, clear to auscultation bilaterally GI: Soft, non-tender; bowel sounds normal. No peritoneal signs Musculoskeletal: bilateral anterior leg ulcerations. with purulent drainage, + foul odor, +lymphedema Skin: same as above Hem/Lymphatic: No palpable cervical or supraclavicular nodes. No lymphangitis Psych: Mood ok. Affect normal Neurological: Awake, alert, oriented. - Constitutional Vitals: Vital Signs Temp Pulse Resp BP Pulse Ox 98.0 F 94 H 18 138/69 92 06/03/19 01:02 06/03/19 05:25 06/03/19 01:02 06/03/19 05:25 06/03/19 01:02 Temperature -Last 24 Hours Temperature 98.0 F Temperature 98.4 F Temperature 98.5 F - Labs CBC & Chem 7: 06/02/19 06:20 06/02/19 06:20 Labs: Abnormal lab results 06/02/19 06/02/19 06/02/19 Range/Units 06:20 13:07 17:15 Seg Neuts % (Manual) 78.0 H (40.0-70.0) % Lymphocytes % (Manual) 13.0 L (13.4-35.0) % Seg Neutrophils # Man 8.8 H (1.8-7.7) K/mm3 POC Glucose 145 H 173 H (70-105) 06/02/19 06/03/19 Range/Units 20:54 08:17 Seg Neuts % (Manual) (40.0-70.0) % Lymphocytes % (Manual) (13.4-35.0) % Seg Neutrophils # Man (1.8-7.7) K/mm3 POC Glucose 190 H 147 H (70-105)
[2019-06-03] MEDS: SODIUM CHLORIDE FLUSH SYRINGE 10 ML IV SCH ×2 (11:26→22:35)
[2019-06-03] MEDS: PROCARDIA XL PO SCH (11:26)
[2019-06-03] MEDS: PEPCID PO SCH ×2 (11:26→22:35)
[2019-06-03] MEDS: ANCEF/NS 1 GM/50 ML 1 GM/50 ML BAG IV SCH (16:30)
--- NOTE | 2019-06-03 16:33 | Progress Note ---
Assessment and Plan 44-year-old female with lymphedema of the lower extremities, and necrotic superficial skin and subcutaneous tissue. Calciphylaxis is extremely high in the differential and concerning as the mortality approaches 90% at one year due to sepsis. Patient will need hyperbaric oxygen and she will need to go to dialysis or she will likely succumb to calciphylaxis. This was discussed with the patient. Venous insufficiency study was performed, but patient would not stand for the procedure, making the results highly unreliable. She will need a repeat venous insufficiency study as an outpatient. Due to underlying lymphedema, I could not palpate her pulses. Arterial duplex ordered. Subjective Date of service: 06/03/19 Interval history: Wound care has seen patient. Severe lymphedema of the bilateral lower extremities. Nonpalpable pedal pulses. No acute pain of her legs. Bandages over her calves. Objective - Constitutional Vitals: Vital Signs - 12hr 06/03/19 06/03/19 06/03/19 05:25 05:41 05:50 Temperature 99.0 F 97.7 F Pulse Rate 94 H 91 H 75 Respiratory 18 16 Rate Blood Pressure 138/69 131/67 112/70 O2 Sat by Pulse 90 97 Oximetry 06/03/19 12:17 Temperature 97.9 F Pulse Rate 94 H Respiratory 20 Rate Blood Pressure 148/79 O2 Sat by Pulse 97 Oximetry General appearance: Present: no acute distress - EENT Eyes: EOM intact ENT: hearing intact Extremities: abnormal (see HPI) - Psychiatric Psychiatric: appropriate mood/affect, cooperative - Labs CBC & Chem 7: 06/02/19 06:20 06/02/19 06:20 Labs: Abnormal lab results 06/02/19 06/02/19 06/02/19 Range/Units 13:07 17:15 20:54 POC Glucose 145 H 173 H 190 H (70-105) 06/03/19 06/03/19 Range/Units 08:17 11:30 POC Glucose 147 H 154 H (70-105) Medications & Allergies - Medications Allergies/Adverse Reactions: Allergies No Known Allergies Allergy (Verified 03/12/19 12:23) Home Medications: Home Medications Medication Instructions Recorded Confirmed Last Taken Type NIFEdipine XL [Procardia Xl] 60 mg PO Q12HR #60 tablet 04/08/19 05/28/19 Unknown Rx cloNIDine [Catapres] 0.2 mg PO TID #90 tablet 04/08/19 05/28/19 Unknown Rx hydrALAZINE [Apresoline TAB] 100 mg PO TID #90 tab 04/08/19 05/28/19 Unknown Rx Active Medications: Generic Name Dose Route Start Last Admin Trade Name Freq PRN Reason Stop Dose Admin Acetaminophen 650 mg 05/28/19 20:27 Tylenol PO Q4H PRN Pain MILD(1-3)/Fever >100.5/[place] Clonidine HCl 0.1 mg 05/28/19 23:30 05/29/19 16:55 Catapres PO 0.1 mg Q4H PRN Administration Hypertension Clonidine HCl 0.3 mg 05/29/19 14:00 06/03/19 05:25 Catapres PO 0.3 mg Q8HR WALT Administration Famotidine 10 mg 05/30/19 22:00 06/03/19 11:26 Pepcid PO 10 mg BID WALT Administration Heparin Sodium (Porcine) 3,000 unit 05/29/19 17:00 05/29/19 17:02 Heparin 10,000 Units/10 Ml IV 3,000 unit AMBER WALT Administration Sodium Chloride 100 mls @ 999 mls/hr 05/29/19 11:18 Nacl 0.9% IV AMBER PRN Hypotension Cefazolin Sodium 1 gm in 50 mls @ 100 mls/hr 06/02/19 16:30 06/02/19 16:46 Ancef/Ns 1 Gm/50 Ml IV 100 mls/hr Q24H WALT Administration Protocol Insulin Human Isoph/Insulin Regular 5 unit 06/02/19 08:00 06/03/19 07:30 Humulin 70/30 SUB-Q 5 unit BIDDIAB WALT Administration Insulin Human Regular 0 units 05/30/19 22:00 06/03/19 12:30 Humulin R SUB-Q 1 units ACHS WALT Administration Protocol Morphine Sulfate 2 mg 05/28/19 22:16 06/03/19 07:57 Morphine IV 2 mg Q4H PRN Administration Pain, Moderate (4-6) Nifedipine 60 mg 05/29/19 12:00 06/03/19 11:26 Procardia Xl PO 60 mg DAILY WALT Administration Ondansetron HCl 4 mg 05/28/19 20:27 06/02/19 15:51 Zofran IV 4 mg Q8H PRN Administration Nausea And Vomiting Oxycodone/Acetaminophen 1 tab 05/28/19 22:16 06/02/19 22:04 Percocet 5/325 PO 1 tab Q6H PRN Administration Pain, Moderate (4-6) Sodium Chloride 10 ml 05/28/19 22:00 06/03/19 11:26 Sodium Chloride Flush Syringe 10 Ml IV 10 ml BID WALT Administration Sodium Chloride 10 ml 05/28/19 20:27 Sodium Chloride Flush Syringe 10 Ml IV PRN PRN LINE FLUSH
[2019-06-04] MEDS: CATAPRES PO SCH ×2 (05:25→14:44)
[2019-06-04 07:31] LABS: Basophils # (Auto) 0.1 K/mm3 (0.0-0.1); Basophils % (Auto) 0.6 % (0.0-1.8); Eosinophils # (Auto) 0.2 K/mm3 (0.0-0.4); Eosinophils % (Auto) 1.7 % (0.0-4.3); Hematocrit 29.7 % (30.3-42.9); Hemoglobin 9.8 gm/dl (10.1-14.3); Lymphocytes # (Auto) 1.2 K/mm3 (1.2-5.4); Lymphocytes % (Auto) 10.1 % (13.4-35.0); Mean Corpuscular HGB Conc 33 % (30-34); Mean Corpuscular Volume 85 fl (79-97); Monocytes # (Auto) 1.6 K/mm3 (0.0-0.8); Monocytes % (Auto) 14.1 % (0.0-7.3); Platelet Count 327 K/mm3 (140-440); Red Cell Distribution Width 17.5 % (13.2-15.2)
--- NOTE | 2019-06-04 08:23 | Progress Note ---
Assessment and Plan Cultures: 05/30/19 Left Leg wound: MSSA, badillo susceptible 05/31/19: Blood: Gram positive Rods; Diptheroids, 1/4 06/01/19 Right leg wound: no growth A/P: 44-year old female with a past medical history of ESRD, HTN, DM type 2, morbid obesity, chronic bilateral cellulitis who presents to the ED on 05/28/19 with complaints of bilateral lower leg pain, fever and missed dialysis X2. Patient stated that she had been having worsening bilateral leg pain and that she has has been doing her wound care at home for the past 2 weeks and noticed that wounds were getting worse. Admitted with: 1. Leukocytosis on admission: Improved. etiology MSSA left lower extremity. B lood cultures gram positive rods, 1 out of 4 bottles. Chest xray no consolidation. UA not done. Currently being treated with Cefazolin. 2. Gram Positive Rods Bacteremia: Diptheroids. Contaminant 3. Bilateral Lower Extremity Cellulitis . R/L anterior leg ulceration with lymphedema. Left lower extremity wound culture grew MSSA. Right LE wound no growth. Bilateral duplex doppler lower extremity unremarkable however highly unreliable due to patient not tolerating the procedure. High risk for caciphylaxis. Arterial duplex ordered- vascular following. 4. ESRD on HID: antibiotics renally dosed. 5. . Type 2 Diabetes 6. . Morbid Obesity Recommendations: -Continue Cefazolin 1 gm every 24 hours -Anticipate discharge on Keflex 250mg TID for [address] 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 Please call for questions. Joi Basilio NP [facility] M: [phone] O:[phone] Subjective Date of service: 06/04/19 Interval history: Patient seen and examined. Awake. Alert. Edematous bilateral legs. +tenderness. No fevers. Objective - Exam Narrative Exam: Constitutional: Alert, cooperative.. No acute distress Head, Ears, Nose: Normocephalic, atraumatic. External ears, nose normal Eyes: Conjunctivae/corneas clear. No icterus. No ptosis. Neck: Supple, no meningeal signs Oral: dentition fair. No thrush. moist mucosa Cardiovascular: S1, S2 normal. Respiratory: Good air entry, clear to auscultation bilaterally GI: Soft, non-tender; bowel sounds normal. No peritoneal signs Musculoskeletal: bilateral anterior leg ulcerations.. +dressing c/d/I. Skin: same as above Hem/Lymphatic: No palpable cervical or supraclavicular nodes. No lymphangitis Psych: Mood ok. Affect normal Neurological: Awake, alert, oriented. - Constitutional Vitals: Vital Signs Temp Pulse Resp BP Pulse Ox 100.2 F H 82 18 123/68 90 06/03/19 22:34 06/04/19 05:25 06/03/19 23:00 06/04/19 05:25 06/03/19 22:34 Temperature -Last 24 Hours Temperature 100.2 F Temperature 98.0 F Temperature 97.9 F - Labs CBC & Chem 7: 06/04/19 06:54 06/04/19 06:54 Labs: Abnormal lab results 06/03/19 06/03/19 06/03/19 Range/Units 11:30 17:04 21:42 WBC (4.5-11.0) K/mm3 RBC (3.65-5.03) M/mm3 Hgb (10.1-14.3) gm/dl Hct (30.3-42.9) % RDW (13.2-15.2) % Lymph % (Auto) (13.4-35.0) % [place] % (Auto) (0.0-7.3) % [place] # (0.0-0.8) K/mm3 Seg Neutrophils % (40.0-70.0) % Seg Neutrophils # (1.8-7.7) K/mm3 Sodium (137-145) mmol/L Chloride (98-107) mmol/L BUN (7-17) mg/dL Creatinine (0.7-1.2) mg/dL Glucose (65-100) mg/dL POC Glucose 154 H 196 H 155 H (70-105) 06/04/19 06/04/19 06/04/19 Range/Units 06:54 06:54 08:00 WBC 11.7 H (4.5-11.0) K/mm3 RBC 3.50 L (3.65-5.03) M/mm3 Hgb 9.8 L (10.1-14.3) gm/dl Hct 29.7 L (30.3-42.9) % RDW 17.5 H (13.2-15.2) % Lymph % (Auto) 10.1 L (13.4-35.0) % [place] % (Auto) 14.1 H (0.0-7.3) % [place] # 1.6 H (0.0-0.8) K/mm3 Seg Neutrophils % 73.5 H (40.0-70.0) % Seg Neutrophils # 8.6 H (1.8-7.7) K/mm3 Sodium 133 L (137-145) mmol/L Chloride 94.2 L (98-107) mmol/L BUN 24 H (7-17) mg/dL Creatinine 5.2 H (0.7-1.2) mg/dL Glucose 136 H (65-100) mg/dL POC Glucose 144 H (70-105)
[2019-06-04] MEDS: HumuLIN R SUB-Q SCH ×3 (08:37→17:28)
--- NOTE | 2019-06-04 10:03 | Progress Note ---
Assessment and Plan Patient will need arterial duplex of her lower extremities. Additionally, when the patient can tolerate it, she will need a venous ultrasound with reflux and a position to elicit reflux as opposed to supine. The patient will need increased compliance with her dialysis as volume overload worsens her lower extremity edema and delays her wound healing. Subjective Date of service: 06/04/19 Principal diagnosis: bilateral lower extremity wounds Interval history: Patient with a history of nonhealing bilateral lower extremity wounds who is noncompliant with dialysis. No complaints at time of examination Objective - Constitutional Vitals: Vital Signs - 12hr 06/03/19 06/03/19 06/04/19 22:34 23:00 05:23 Temperature 100.2 F H Pulse Rate 94 H Respiratory 18 18 Rate Blood Pressure 127/67 123/68 O2 Sat by Pulse 90 Oximetry 06/04/19 05:25 Temperature Pulse Rate 82 Respiratory Rate Blood Pressure 123/68 O2 Sat by Pulse Oximetry General appearance: Present: no acute distress - EENT Eyes: EOM intact ENT: hearing intact - Neck Neck: supple, normal ROM - Respiratory Respiratory effort: normal Extremities: abnormal Extremity abnormal: edema, ulceration - Gastrointestinal General gastrointestinal: Present: deferred Rectal Exam: deferred - Genitourinary Female genitourinary: deferred - Psychiatric Psychiatric: cooperative - Labs CBC & Chem 7: 06/04/19 06:54 06/04/19 06:54 Labs: Abnormal lab results 06/03/19 06/03/19 06/03/19 Range/Units 11:30 17:04 21:42 WBC (4.5-11.0) K/mm3 RBC (3.65-5.03) M/mm3 Hgb (10.1-14.3) gm/dl Hct (30.3-42.9) % RDW (13.2-15.2) % Lymph % (Auto) (13.4-35.0) % [place] % (Auto) (0.0-7.3) % [place] # (0.0-0.8) K/mm3 Seg Neutrophils % (40.0-70.0) % Seg Neutrophils # (1.8-7.7) K/mm3 Sodium (137-145) mmol/L Chloride (98-107) mmol/L BUN (7-17) mg/dL Creatinine (0.7-1.2) mg/dL Glucose (65-100) mg/dL POC Glucose 154 H 196 H 155 H (70-105) 06/04/19 06/04/19 06/04/19 Range/Units 06:54 06:54 08:00 WBC 11.7 H (4.5-11.0) K/mm3 RBC 3.50 L (3.65-5.03) M/mm3 Hgb 9.8 L (10.1-14.3) gm/dl Hct 29.7 L (30.3-42.9) % RDW 17.5 H (13.2-15.2) % Lymph % (Auto) 10.1 L (13.4-35.0) % [place] % (Auto) 14.1 H (0.0-7.3) % [place] # 1.6 H (0.0-0.8) K/mm3 Seg Neutrophils % 73.5 H (40.0-70.0) % Seg Neutrophils # 8.6 H (1.8-7.7) K/mm3 Sodium 133 L (137-145) mmol/L Chloride 94.2 L (98-107) mmol/L BUN 24 H (7-17) mg/dL Creatinine 5.2 H (0.7-1.2) mg/dL Glucose 136 H (65-100) mg/dL POC Glucose 144 H (70-105) Medications & Allergies - Medications Allergies/Adverse Reactions: Allergies No Known Allergies Allergy (Verified 03/12/19 12:23) Home Medications: Home Medications Medication Instructions Recorded Confirmed Last Taken Type NIFEdipine XL [Procardia Xl] 60 mg PO Q12HR #60 tablet 04/08/19 05/28/19 Unknown Rx cloNIDine [Catapres] 0.2 mg PO TID #90 tablet 04/08/19 05/28/19 Unknown Rx hydrALAZINE [Apresoline TAB] 100 mg PO TID #90 tab 04/08/19 05/28/19 Unknown Rx Active Medications: Generic Name Dose Route Start Last Admin Trade Name Freq PRN Reason Stop Dose Admin Acetaminophen 650 mg 05/28/19 20:27 06/03/19 23:00 Tylenol PO 650 mg Q4H PRN Administration Pain MILD(1-3)/Fever >100.5/[place] Clonidine HCl 0.1 mg 05/28/19 23:30 05/29/19 16:55 Catapres PO 0.1 mg Q4H PRN Administration Hypertension Clonidine HCl 0.3 mg 05/29/19 14:00 06/04/19 05:25 Catapres PO Not Given Q8HR [facility] Famotidine 10 mg 05/30/19 22:00 06/03/19 22:35 Pepcid PO 10 mg BID WALT Administration Heparin Sodium (Porcine) 3,000 unit 05/29/19 17:00 05/29/19 17:02 Heparin 10,000 Units/10 Ml IV 3,000 unit AMBER WALT Administration Sodium Chloride 100 mls @ 999 mls/hr 05/29/19 11:18 Nacl 0.9% IV AMBER PRN Hypotension Cefazolin Sodium 1 gm in 50 mls @ 100 mls/hr 06/02/19 16:30 06/03/19 16:30 Ancef/Ns 1 Gm/50 Ml IV 100 mls/hr Q24H WALT Administration Protocol Insulin Human Isoph/Insulin Regular 5 unit 06/02/19 08:00 06/04/19 08:43 Humulin 70/30 SUB-Q 5 unit BIDDIAB WALT Administration Insulin Human Regular 0 units 05/30/19 22:00 06/04/19 08:37 Humulin R SUB-Q Not Given ACHS [facility] Protocol Morphine Sulfate 2 mg 05/28/19 22:16 06/03/19 17:51 Morphine IV 2 mg Q4H PRN Administration Pain, Moderate (4-6) Nifedipine 60 mg 05/29/19 12:00 06/03/19 11:26 Procardia Xl PO 60 mg DAILY WALT Administration Ondansetron HCl 4 mg 05/28/19 20:27 06/02/19 15:51 Zofran IV 4 mg Q8H PRN Administration Nausea And Vomiting Oxycodone/Acetaminophen 1 tab 05/28/19 22:16 06/02/19 22:04 Percocet 5/325 PO 1 tab Q6H PRN Administration Pain, Moderate (4-6) Sodium Chloride 10 ml 05/28/19 22:00 06/03/19 22:35 Sodium Chloride Flush Syringe 10 Ml IV 10 ml BID WALT Administration Sodium Chloride 10 ml 05/28/19 20:27 Sodium Chloride Flush Syringe 10 Ml IV PRN PRN LINE FLUSH
[2019-06-04] MEDS: PEPCID PO SCH (11:11)
[2019-06-04] MEDS: PROCARDIA XL PO SCH (11:11)
[2019-06-04] MEDS: SODIUM CHLORIDE FLUSH SYRINGE 10 ML IV SCH (11:11)
[2019-06-04] MEDS: MORPHINE IV PRN (11:54)
--- NOTE | 2019-06-04 13:08 | Discharge Summary ---
Providers - Providers Date of Admission: 05/28/19 20:27 Date of discharge: 06/04/19 Attending physician: ISABELLA FONTANEZ 05/28/19 19:02 Consult to Physician [CONS] Stat Comment: Consulting Provider: GUSTAVO CANNON Physician Instructions: Reason For Exam: missed dialysis 05/28/19 20:39 Consult to Wound/ET Nurse [CONS] Urgent Reason For Exam: wound eval 05/29/19 12:47 Physical Therapy Evaluation and Treat [CONS] Routine Comment: Reason For Exam: placement 06/01/19 10:12 Consult to Physician [CONS] Routine Comment: Consulting Provider: EZRA VALENZUELA Physician Instructions: Reason For Exam: Infected wound with Stap Aureus 06/01/19 14:47 Consult to Physician [CONS] Routine Comment: Consulting Provider: PAGE RODRIGUEZ Physician Instructions: Reason For Exam: evaluate vascular status bilateral legs Primary care physician: DEREJE PUENTE Hospitalization Condition: Stable Hospital course: Patient is a 44-year-old female with PMHx of ESRD, CHF, HTN, DM type II, morbid obesity, chronic bilateral cellulitis who presents to the ER with complaint bilateral lower legs pain, fever and missed dialysis x2. Admitted for SIRS/sepsis and infected LE wound, cx growing Staph Aureus, ID and vascular following . Discharge diagnosis: -- Leukocytosis with Sepsis, POA - likely from LE wound infection/MSSA bacteremia Evaluated the patient, on IV antibiotics -- Bilateral LE with cellulites/chronic lymphedema Supportive care, vascular/IR evaluation noted and appreciated -- Bilateral LE chronic nonhealing wound with acute infection wound cx growing Staph Aureus ID following continue current antibiotics d/c with one week of keflex -- ESRD on HD MWF; nephrology following --DM type II; Recheck sliding scale coverage and ADA diet and insulin A1c 6.3 --Anemia of chronic kidney disease; Monitor H&H and transfuse as needed --Morbid obesity; BMI 55 Dietary modification and exercise as tolerated and weight reduction when medically stable Nutrition consult --DVT prophylaxis; Lovenox PT evaluation and treatment Continue wound care Consults and recommendations noted and appreciated Monitor closely and adjust the management as needed Disposition; discharge patient with Hospitalist Physical General appearance: Present: no acute distress, well-nourished, obese (morbidly obese) - EENT Eyes: Present: PERRL, EOM intact - Neck Neck: Present: supple, normal ROM - Respiratory Respiratory effort: normal Respiratory: bilateral: diminished, rales, negative: rhonchi, wheezing - Cardiovascular Rhythm: regular Heart Sounds: Present: S1 & S2 - Extremities Extremity abnormal: edema, other (infected wounds bilateral) - Abdominal General gastrointestinal: soft, non-tender, non-distended, normal bowel sounds - Integumentary Integumentary: Present: clear, erythema - Psychiatric Psychiatric: appropriate mood/affect, cooperative - Neurologic Neurologic: moves all extremities Disposition: [id number]/[place]-06 HOME [facility] Time spent for discharge: 34 minutes Core Measure Documentation - Palliative Care Palliative Care/ Comfort Measures: Not Applicable - Core Measures Any of the following diagnoses?: none Exam - Constitutional Vitals: Temp Pulse Resp BP Pulse Ox 98.0 F 82 20 113/60 90 06/04/19 11:08 06/04/19 05:25 06/04/19 11:08 06/04/19 11:08 06/03/19 22:34 Plan Activity: fall precautions Weight Bearing Status: Non-Weight Bearing Diet: diabetic, renal Wound: per wound nurse instructions Special Instructions: record daily BP diary, record blood sugar diary Follow up with: DEREJE PUENTE MD [Primary Care Provider] - 3-5 Days Prescriptions: cephALEXin [Keflex] 500 mg PO Q12HR #14 cap Insulin NPH/Regular [NovoLIN 70/30] 5 unit SUB-Q BIDDIAB #10 ml oxyCODONE /ACETAMINOPHEN [Percocet 5/325 mg] 1 tab PO Q6H PRN #10 tablet PRN Reason: Pain, Moderate (4-6)
--- NOTE | 2019-06-04 14:01 | Progress Note ---
Assessment and Plan Assessment * End-stage renal disease * Bilateral LE wound infection --Wound cx: MSSA * Calciphylaxis * Hypontaremia * Anemia secondary to ESRD * Peripheral edema * Medical noncompliance Plan: * Continue hemodialysis MWF * UF as tolerated * Abx per primary team - currently receiving Ancef * Have discussed with licensed real estate broker. Recommend HBO treatment upon discharge. * Will arrange Sodium Thiosulfate at outpatient dialysis clinic * Epogen TIW prn * Renal diet * Dose medications for renal function Subjective Date of service: 06/04/19 Principal diagnosis: bilateral lower extremity wounds Interval history: Patient seen on dialysis Objective - Vital Signs Vital signs: Vital Signs - 12hr 06/04/19 06/04/19 06/04/19 05:23 05:25 11:08 Temperature 98.0 F Pulse Rate 82 Respiratory 20 Rate Blood Pressure 123/68 123/68 113/60 - General Appearance General appearance: well-developed, obese EENT: ATNC Respiratory: Present: Clear to Ascultation Cardiology: regular, S1S2 Gastrointestinal: no tenderness, no distended, obese Integumentary: other (bilateral LE bandaged) Neurologic: no focal deficit, alert and oriented x3 Psychiatric: cooperative - Lab 06/04/19 06:54 06/04/19 06:54 Most recent lab results Calcium 9.0 mg/dL (8.4-10.2) 06/04/19 06:54 Medications & Allergies - Medications Allergies/Adverse Reactions: Allergies No Known Allergies Allergy (Verified 03/12/19 12:23) Home Medications: Home Medications Medication Instructions Recorded Confirmed Last Taken Type NIFEdipine XL [Procardia Xl] 60 mg PO Q12HR #60 tablet 04/08/19 05/28/19 Unknown Rx cloNIDine [Catapres] 0.2 mg PO TID #90 tablet 04/08/19 05/28/19 Unknown Rx Insulin NPH/Regular [NovoLIN 70/30] 5 unit SUB-Q BIDDIAB #10 ml 06/04/19 Unknown Rx cephALEXin [Keflex] 500 mg PO Q12HR #14 cap 06/04/19 Unknown Rx oxyCODONE /ACETAMINOPHEN [Percocet 1 tab PO Q6H PRN #10 tablet 06/04/19 Unknown Rx 5/325 mg] Active Medications: Generic Name Dose Route Start Last Admin Trade Name Freq PRN Reason Stop Dose Admin Acetaminophen 650 mg 05/28/19 20:27 06/03/19 23:00 Tylenol PO 650 mg Q4H PRN Administration Pain MILD(1-3)/Fever >100.5/[place] Clonidine HCl 0.1 mg 05/28/19 23:30 05/29/19 16:55 Catapres PO 0.1 mg Q4H PRN Administration Hypertension Clonidine HCl 0.3 mg 05/29/19 14:00 06/04/19 05:25 Catapres PO Not Given Q8HR WALT Famotidine 10 mg 05/30/19 22:00 06/04/19 11:11 Pepcid PO 10 mg BID WALT Administration Heparin Sodium (Porcine) 3,000 unit 05/29/19 17:00 05/29/19 17:02 Heparin 10,000 Units/10 Ml IV 3,000 unit AMBER WALT Administration Sodium Chloride 100 mls @ 999 mls/hr 05/29/19 11:18 Nacl 0.9% IV AMBER PRN Hypotension Cefazolin Sodium 1 gm in 50 mls @ 100 mls/hr 06/02/19 16:30 06/03/19 16:30 Ancef/Ns 1 Gm/50 Ml IV 100 mls/hr Q24H WALT Administration Protocol Insulin Human Isoph/Insulin Regular 5 unit 06/02/19 08:00 06/04/19 08:43 Humulin 70/30 SUB-Q 5 unit BIDDIAB WALT Administration Insulin Human Regular 0 units 05/30/19 22:00 06/04/19 12:04 Humulin R SUB-Q 1 units ACHS WALT Administration Protocol Morphine Sulfate 2 mg 05/28/19 22:16 06/04/19 11:54 Morphine IV 2 mg Q4H PRN Administration Pain, Moderate (4-6) Nifedipine 60 mg 05/29/19 12:00 06/04/19 11:11 Procardia Xl PO 60 mg DAILY WALT Administration Ondansetron HCl 4 mg 05/28/19 20:27 06/02/19 15:51 Zofran IV 4 mg Q8H PRN Administration Nausea And Vomiting Oxycodone/Acetaminophen 1 tab 05/28/19 22:16 06/02/19 22:04 Percocet 5/325 PO 1 tab Q6H PRN Administration Pain, Moderate (4-6) Sodium Chloride 10 ml 05/28/19 22:00 06/04/19 11:11 Sodium Chloride Flush Syringe 10 Ml IV 10 ml BID WALT Administration Sodium Chloride 10 ml 05/28/19 20:27 Sodium Chloride Flush Syringe 10 Ml IV PRN PRN LINE FLUSH
--- NOTE | 2019-06-04 14:05 | Vascular Lab Report ---
DUPLEX DOPPLER LOWER EXTREMITY ARTERIAL, BILATERAL INDICATION: nonhealing ulcers. TECHNIQUE: Arterial duplex examination of both lower extremities performed using B-mode, color flow and spectral Doppler assessment. FINDINGS: RIGHT: Common Femoral Artery: PSV 112 cm/sec. Triphasic waveform. Proximal SFA: PSV 105 cm/sec. Triphasic waveform. Mid SFA: PSV 94 cm/sec. Triphasic waveform. Distal SFA: PSV 76 cm/sec. Triphasic waveform. Popliteal artery: PSV 106 cm/sec. Triphasic waveform. Posterior tibial artery: PSV 47 cm/sec. Triphasic waveform. Anterior tibial artery: PSV 65 cm/sec. Triphasic waveform. LEFT: Common Femoral Artery: PSV 90 cm/sec. Triphasic waveform. Proximal SFA: PSV 113 cm/sec. Triphasic waveform. Mid SFA: PSV 78 cm/sec. Triphasic waveform. Distal SFA: PSV 91 cm/sec. Triphasic waveform. Popliteal artery: PSV 89 cm/sec. Triphasic waveform. Posterior tibial artery: PSV 57 cm/sec. Triphasic waveform. Dorsalis Pedis Artery: PSV 49 cm/sec. Triphasic waveform. IMPRESSION: No significant lower extremity peripheral artery disease. Doppler Waveform: * Triphasic is normal. * Biphasic is abnormal if clear transition from triphasic signal along vascular tree. * Monophasic is abnormal. Signer Name: Michael Israel Jr, MD Signed: 06/04/2019 2:00 PM Workstation Name: [id number]
[2019-06-04] MEDS: HEPARIN 10,000 UNITS/10 ML IV SCH (15:32)
[2019-06-04] MEDS ORDERED: NACL 0.9 (PRIMING MACHINE ONLY DIALYSIS) MC ONE (15:32)
[2019-06-04 19:29] VITALS: BP 145/100
== END 2019-06-04 20:21 | disposition home health service (06) | DRG 871 ==
LOC: ED 15:16 → 3A 20:27
PROVIDERS: ADMIT Internal Medicine; ATTEND Internal Medicine
PROC: 5A1D70Z Performance of Urinary Filtration, Intermittent, Less than 6 Hours Per Day (ICD-10-PCS; principal; 2019-05-29)
PROC: 5A1D70Z Performance of Urinary Filtration, Intermittent, Less than 6 Hours Per Day (ICD-10-PCS; 2019-05-31)
PROC: 5A1D70Z Performance of Urinary Filtration, Intermittent, Less than 6 Hours Per Day (ICD-10-PCS; 2019-06-02)
PROC: 5A1D70Z Performance of Urinary Filtration, Intermittent, Less than 6 Hours Per Day (ICD-10-PCS; 2019-06-04)
DX: A41.01 Sepsis due to Methicillin susceptible Staphylococcus aureus (principal); N18.6 End stage renal disease; L03.115 Cellulitis of right lower limb; E87.1 Hypo-osmolality and hyponatremia; E87.2 Acidosis; L03.116 Cellulitis of left lower limb; Z68.43 Body mass index [BMI] 50.0-59.9, adult; N25.81 Secondary hyperparathyroidism of renal origin; I13.2 Hypertensive heart and chronic kidney disease with heart failure and with stage 5 chronic kidney disease, or end stage renal disease; I50.9 Heart failure, unspecified; E11.22 Type 2 diabetes mellitus with diabetic chronic kidney disease; E66.01 Morbid (severe) obesity due to excess calories; W18.39XA Other fall on same level, initial encounter; D63.1 Anemia in chronic kidney disease; J44.9 Chronic obstructive pulmonary disease, unspecified; Z71.3 Dietary counseling and surveillance; Y93.89 Activity, other specified; Y92.098 Other place in other non-institutional residence as the place of occurrence of the external cause; Y99.8 Other external cause status; Z91.19 Patient's noncompliance with other medical treatment and regimen; Z79.84 Long term (current) use of oral hypoglycemic drugs
CPT/HCPCS: 36415; 71045; 80048; 80202; 82962; 83036; 85007; 85025; 87040; 87076; 87116; 87186; 93925; 93970; 96365; G0378; J0690; J0885; J1644; J1815; J2270; J2405; J3370; J7030; J7040

== ENCOUNTER 2019-06-08 08:18 | Outpatient (CLI) | payer MEDICARE ==
[2019-06-08] MEDS ORDERED: XYLOCAINE TOPICAL 4% TP ONE (08:31)
[2019-06-08] MEDS ORDERED: SILVER NITRATE TP ONE (09:30)
== END 2019-06-08 08:19 | disposition home or self-care (01) ==
LOC: WOUND 08:18
PROVIDERS: ATTEND Surgery
DX: E11.622 Type 2 diabetes mellitus with other skin ulcer (principal); L97.212 Non-pressure chronic ulcer of right calf with fat layer exposed; L97.222 Non-pressure chronic ulcer of left calf with fat layer exposed; E11.22 Type 2 diabetes mellitus with diabetic chronic kidney disease; I13.2 Hypertensive heart and chronic kidney disease with heart failure and with stage 5 chronic kidney disease, or end stage renal disease; I50.9 Heart failure, unspecified; N18.6 End stage renal disease; E83.59 Other disorders of calcium metabolism; J44.9 Chronic obstructive pulmonary disease, unspecified; I25.10 Atherosclerotic heart disease of native coronary artery without angina pectoris; F41.9 Anxiety disorder, unspecified; Z99.2 Dependence on renal dialysis; Z79.4 Long term (current) use of insulin; Z87.891 Personal history of nicotine dependence
CPT/HCPCS: 11042; 11045; G0463; 99215

== ENCOUNTER 2019-06-15 08:39 | Outpatient (CLI) | payer MEDICARE ==
[2019-06-15] MEDS ORDERED: SILVER NITRATE TP ONE (10:00)
[2019-06-15] MEDS ORDERED: XYLOCAINE TOPICAL 4% TP ONE (10:00)
== END 2019-06-15 08:40 | disposition home or self-care (01) ==
LOC: WOUND 08:39
PROVIDERS: ATTEND Surgery
DX: E11.622 Type 2 diabetes mellitus with other skin ulcer (principal); L97.212 Non-pressure chronic ulcer of right calf with fat layer exposed; L97.222 Non-pressure chronic ulcer of left calf with fat layer exposed; E11.22 Type 2 diabetes mellitus with diabetic chronic kidney disease; I13.2 Hypertensive heart and chronic kidney disease with heart failure and with stage 5 chronic kidney disease, or end stage renal disease; I50.9 Heart failure, unspecified; N18.6 End stage renal disease; E83.59 Other disorders of calcium metabolism; J44.9 Chronic obstructive pulmonary disease, unspecified; I25.10 Atherosclerotic heart disease of native coronary artery without angina pectoris; F41.9 Anxiety disorder, unspecified; Z99.2 Dependence on renal dialysis; Z79.4 Long term (current) use of insulin; Z87.891 Personal history of nicotine dependence

== ENCOUNTER 2019-06-24 12:38 | Outpatient (CLI) | payer MEDICARE | END 2019-06-24 12:39 | disposition home or self-care (01) | LOC: WOUND 12:38 | PROVIDERS: ATTEND Surgery | DX: E11.622 Type 2 diabetes mellitus with other skin ulcer (principal); L97.212 Non-pressure chronic ulcer of right calf with fat layer exposed; L97.222 Non-pressure chronic ulcer of left calf with fat layer exposed; E11.22 Type 2 diabetes mellitus with diabetic chronic kidney disease; I13.2 Hypertensive heart and chronic kidney disease with heart failure and with stage 5 chronic kidney disease, or end stage renal disease; I50.9 Heart failure, unspecified; N18.6 End stage renal disease; E83.59 Other disorders of calcium metabolism; J44.9 Chronic obstructive pulmonary disease, unspecified; I25.10 Atherosclerotic heart disease of native coronary artery without angina pectoris; F41.9 Anxiety disorder, unspecified; Z99.2 Dependence on renal dialysis; Z79.4 Long term (current) use of insulin; Z87.891 Personal history of nicotine dependence ==

== ENCOUNTER 2019-07-01 11:10 | Outpatient (CLI) | payer MEDICARE ==
[2019-07-01] MEDS ORDERED: SILVER NITRATE TP ONE (11:49)
[2019-07-01] MEDS ORDERED: XYLOCAINE TOPICAL 4% TP ONE (11:49)
== END 2019-07-01 11:11 | disposition home or self-care (01) ==
LOC: WOUND 11:10
PROVIDERS: ATTEND Surgery
DX: E11.622 Type 2 diabetes mellitus with other skin ulcer (principal); L97.212 Non-pressure chronic ulcer of right calf with fat layer exposed; L97.222 Non-pressure chronic ulcer of left calf with fat layer exposed; E11.22 Type 2 diabetes mellitus with diabetic chronic kidney disease; I13.2 Hypertensive heart and chronic kidney disease with heart failure and with stage 5 chronic kidney disease, or end stage renal disease; I50.9 Heart failure, unspecified; N18.6 End stage renal disease; E83.59 Other disorders of calcium metabolism; J44.9 Chronic obstructive pulmonary disease, unspecified; I25.10 Atherosclerotic heart disease of native coronary artery without angina pectoris; F41.9 Anxiety disorder, unspecified; Z99.2 Dependence on renal dialysis; Z79.4 Long term (current) use of insulin; Z87.891 Personal history of nicotine dependence

== ENCOUNTER 2019-07-21 07:48 | Outpatient (CLI) | payer MEDICARE | END 2019-07-21 07:49 | disposition home or self-care (01) | LOC: WOUND 07:48 | PROVIDERS: ATTEND Surgery | DX: E11.622 Type 2 diabetes mellitus with other skin ulcer (principal); L97.212 Non-pressure chronic ulcer of right calf with fat layer exposed; L97.222 Non-pressure chronic ulcer of left calf with fat layer exposed; E11.22 Type 2 diabetes mellitus with diabetic chronic kidney disease; I13.2 Hypertensive heart and chronic kidney disease with heart failure and with stage 5 chronic kidney disease, or end stage renal disease; I50.9 Heart failure, unspecified; N18.6 End stage renal disease; I25.10 Atherosclerotic heart disease of native coronary artery without angina pectoris; J44.9 Chronic obstructive pulmonary disease, unspecified; Z87.891 Personal history of nicotine dependence | CPT/HCPCS: 82962; G0277; 99183 ==

== ENCOUNTER 2019-07-22 09:01 | Outpatient (CLI) | payer MEDICARE | END 2019-07-22 09:02 | disposition home or self-care (01) | LOC: WOUND 09:01 | PROVIDERS: ATTEND Surgery | DX: E11.622 Type 2 diabetes mellitus with other skin ulcer (principal); L97.212 Non-pressure chronic ulcer of right calf with fat layer exposed; L97.222 Non-pressure chronic ulcer of left calf with fat layer exposed; E11.22 Type 2 diabetes mellitus with diabetic chronic kidney disease; I13.2 Hypertensive heart and chronic kidney disease with heart failure and with stage 5 chronic kidney disease, or end stage renal disease; I50.9 Heart failure, unspecified; N18.6 End stage renal disease; E83.59 Other disorders of calcium metabolism; J44.9 Chronic obstructive pulmonary disease, unspecified; I25.10 Atherosclerotic heart disease of native coronary artery without angina pectoris; F41.9 Anxiety disorder, unspecified; Z99.2 Dependence on renal dialysis; Z79.4 Long term (current) use of insulin; Z87.891 Personal history of nicotine dependence | CPT/HCPCS: 82962; G0277; G0463; 99183; 99214 ==

== ENCOUNTER 2019-07-26 14:03 | Inpatient (IN) | payer MEDICARE ==
--- NOTE | 2019-07-26 15:53 | Emergency Department Report ---
ED General Adult HPI - General Chief complaint: Altered Mental Status Stated complaint: SYNCOPE Time Seen by Provider: 07/26/19 14:53 Source: patient, EMS Mode of arrival: Stretcher Limitations: Physical Limitation - History of Present Illness Initial comments: The patient presents to the emergency department from dialysis for syncopal episode. Patient states that she was beginning dialysis when she reportedly passed out. Per the patient's sister she was told by the nurses at dialysis that the patient had a loss pulse and received 60 chest compressions along with 300 mL of fluid with return of consciousness. The patient's dialysis nurse did call the ED and confirmed the story. Patient denies having any chest pain prior to or after this episode. Patient denies any abdominal pain, headache, or shortness of breath. -: Sudden Severity scale (0 -10): 0 Improves with: none Worsens with: none Associated Symptoms: denies other symptoms Treatments Prior to Arrival: none - Related Data Home Medications Medication Instructions Recorded Confirmed Last Taken Ergocalciferol(Vitamin D2)(Nf) 800 unit PO DAILY 07/06/19 07/06/19 Unknown [Vitamin D (Nf)] cloNIDine [Catapres] 0.2 mg PO BID 07/06/19 07/06/19 Unknown Previous Rx's Medication Instructions Recorded Last Taken Type Insulin NPH/Regular [NovoLIN 70/30] 5 unit SUB-Q BIDDIAB #10 ml 06/04/19 Unknown Rx Lactulose [Cephulac] 20 gm PO BID 30 Days 07/14/19 Unknown Rx Pantoprazole [Protonix TAB] 40 mg PO QDAY #30 tablet 07/14/19 Unknown Rx oxyCODONE ER [oxyCONTIN ER] 10 mg PO Q12HR PRN #10 tablet 07/15/19 Unknown Rx Allergies Allergy/AdvReac Type Severity Reaction Status Date / Time No Known Allergies Allergy Verified 03/12/19 12:23 ED Review of Systems ROS: Stated complaint: SYNCOPE Other details as noted in HPI Comment: All other systems reviewed and negative Constitutional: denies: chills, fever Eyes: denies: eye pain, eye discharge, vision change ENT: denies: ear pain, throat pain Respiratory: denies: cough, shortness of breath, wheezing Cardiovascular: denies: chest pain, palpitations Endocrine: no symptoms reported Gastrointestinal: denies: abdominal pain, nausea, diarrhea Genitourinary: denies: urgency, dysuria, discharge Musculoskeletal: denies: back pain, joint swelling, arthralgia Skin: denies: rash, lesions Neurological: denies: headache, weakness, paresthesias Psychiatric: denies: anxiety, depression Hematological/Lymphatic: denies: easy bleeding, easy bruising ED Past Medical Hx - Past Medical History Previous Medical History?: Yes Hx Hypertension: Yes Hx Heart Attack/AMI: No Hx Congestive Heart Failure: Yes Hx Diabetes: Yes Hx Deep Vein Thrombosis: No Hx Pulmonary Embolism: No Hx Liver Disease: Yes Hx Renal Disease: Yes Hx Asthma: No Hx COPD: Yes Hx Tuberculosis: No Hx HIV: No - Surgical History Past Surgical History?: Yes Hx Coronary Stent: No Hx Pacemaker: No Hx Internal Defibrillator: No Additional Surgical History: Perm cath, - Social History Smoking Status: Never Smoker Substance Use Type: Marijuana - Medications Home Medications: Home Medications Medication Instructions Recorded Confirmed Last Taken Type Insulin NPH/Regular [NovoLIN 70/30] 5 unit SUB-Q BIDDIAB #10 ml 06/04/19 07/06/19 Unknown Rx Ergocalciferol(Vitamin D2)(Nf) 800 unit PO DAILY 07/06/19 07/06/19 Unknown History [Vitamin D (Nf)] cloNIDine [Catapres] 0.2 mg PO BID 07/06/19 07/06/19 Unknown History Lactulose [Cephulac] 20 gm PO BID 30 Days 07/14/19 Unknown Rx Pantoprazole [Protonix TAB] 40 mg PO QDAY #30 tablet 07/14/19 Unknown Rx oxyCODONE ER [oxyCONTIN ER] 10 mg PO Q12HR PRN #10 tablet 07/15/19 Unknown Rx ED Physical Exam - General Limitations: Physical Limitation General appearance: alert, in no apparent distress - Head Head exam: Present: atraumatic, normocephalic - Eye Eye exam: Present: normal appearance, PERRL, EOMI - ENT ENT exam: Present: mucous membranes moist - Neck Neck exam: Present: normal inspection - Respiratory Respiratory exam: Present: normal lung sounds bilaterally. Absent: respiratory distress - Cardiovascular Cardiovascular Exam: Present: normal rhythm, tachycardia, irregular rhythm. Absent: systolic murmur, diastolic murmur, rubs, gallop - GI/Abdominal GI/Abdominal exam: Present: soft, normal bowel sounds. Absent: distended, tenderness - Extremities Exam Extremities exam: Present: normal inspection - Back Exam Back exam: Present: normal inspection - Neurological Exam Neurological exam: Present: alert, oriented X3, CN II-XII intact. Absent: motor sensory deficit - Psychiatric Psychiatric exam: Present: normal affect, normal mood - Skin Skin exam: Present: warm, dry, intact, normal color. Absent: rash ED Course Vital Signs 07/26/19 07/26/19 07/26/19 14:15 14:16 14:30 Temperature 97.5 F L Pulse Rate 111 H 99 H 108 H Respiratory 20 11 L 18 Rate Blood Pressure 96/50 97/50 Blood Pressure [Left] O2 Sat by Pulse 100 100 Oximetry 07/26/19 07/26/19 07/26/19 14:46 15:00 15:12 Temperature Pulse Rate 106 H 114 H 115 H Respiratory 15 13 Rate Blood Pressure 97/50 131/101 Blood Pressure 86/47 [Left] O2 Sat by Pulse 95 92 Oximetry 07/26/19 07/26/19 07/26/19 15:15 15:18 15:28 Temperature Pulse Rate 114 H 109 H Respiratory 18 18 18 Rate Blood Pressure 86/47 Blood Pressure 108/70 [Left] O2 Sat by Pulse 100 98 98 Oximetry 07/26/19 07/26/19 07/26/19 15:30 15:45 16:00 Temperature Pulse Rate 117 H 92 H 119 H Respiratory 22 12 14 Rate Blood Pressure 127/78 124/72 116/75 Blood Pressure [Left] O2 Sat by Pulse 98 100 98 Oximetry 07/26/19 07/26/19 07/26/19 16:08 16:15 16:30 Temperature Pulse Rate 92 H 91 H Respiratory 16 21 Rate Blood Pressure 124/72 122/73 Blood Pressure 125/70 [Left] O2 Sat by Pulse 98 97 Oximetry 07/26/19 07/26/19 07/26/19 17:01 17:15 17:30 Temperature Pulse Rate Respiratory Rate Blood Pressure 116/75 117/72 123/83 Blood Pressure [Left] O2 Sat by Pulse 100 99 99 Oximetry 07/26/19 07/26/19 07/26/19 17:45 18:00 18:15 Temperature Pulse Rate Respiratory Rate Blood Pressure 127/71 114/78 112/76 Blood Pressure [Left] O2 Sat by Pulse 100 100 99 Oximetry ED Medical Decision Making - Lab Data Result diagrams: 07/26/19 16:26 07/26/19 16:26 Lab Results 07/26/19 07/26/19 07/26/19 Range/Units 14:37 16:26 16:26 WBC 16.0 H (4.5-11.0) K/mm3 RBC 2.91 L (3.65-5.03) M/mm3 Hgb 9.0 L (10.1-14.3) gm/dl Hct 28.2 L (30.3-42.9) % MCV 97 (79-97) fl MCH 31 (28-32) pg MCHC 32 (30-34) % RDW 20.4 H (13.2-15.2) % Plt Count 226 (140-440) K/mm3 Lymph % (Auto) 7.1 L (13.4-35.0) % [place] % (Auto) 5.8 (0.0-7.3) % Eos % (Auto) 14.0 H (0.0-4.3) % Baso % (Auto) 0.6 (0.0-1.8) % Lymph # 1.1 L (1.2-5.4) K/mm3 [place] # 0.9 H (0.0-0.8) K/mm3 Eos # 2.2 H (0.0-0.4) K/mm3 Baso # 0.1 (0.0-0.1) K/mm3 Seg Neutrophils % 72.5 H (40.0-70.0) % Seg Neutrophils # 11.6 H (1.8-7.7) K/mm3 PT 18.5 H (12.2-14.9) Sec. INR 1.58 H (0.87-1.13) APTT 29.7 (24.2-36.6) Sec. Sodium (137-145) mmol/L Potassium (3.6-5.0) mmol/L Chloride (98-107) mmol/L Carbon Dioxide (22-30) mmol/L Anion Gap mmol/L BUN (7-17) mg/dL Creatinine (0.7-1.2) mg/dL Estimated GFR ml/min BUN/Creatinine Ratio % Glucose (65-100) mg/dL POC Glucose 197 H (70-105) Calcium (8.4-10.2) mg/dL Magnesium (1.7-2.3) mg/dL Total Bilirubin (0.1-1.2) mg/dL AST (5-40) units/L ALT (7-56) units/L Alkaline Phosphatase (35-129) units/L Troponin T (0.00-0.029) ng/mL Total Protein (6.3-8.2) g/dL Albumin (3.9-5) g/dL Albumin/Globulin Ratio % Triglycerides (2-149) mg/dL Cholesterol (50-199) mg/dL LDL Cholesterol Direct (50-130) mg/dL HDL Cholesterol (40-59) mg/dL Cholesterol/HDL Ratio % 07/26/19 07/26/19 Range/Units 16:26 16:26 WBC (4.5-11.0) K/mm3 RBC (3.65-5.03) M/mm3 Hgb (10.1-14.3) gm/dl Hct (30.3-42.9) % MCV (79-97) fl MCH (28-32) pg MCHC (30-34) % RDW (13.2-15.2) % Plt Count (140-440) K/mm3 Lymph % (Auto) (13.4-35.0) % [place] % (Auto) (0.0-7.3) % Eos % (Auto) (0.0-4.3) % Baso % (Auto) (0.0-1.8) % Lymph # (1.2-5.4) K/mm3 [place] # (0.0-0.8) K/mm3 Eos # (0.0-0.4) K/mm3 Baso # (0.0-0.1) K/mm3 Seg Neutrophils % (40.0-70.0) % Seg Neutrophils # (1.8-7.7) K/mm3 PT (12.2-14.9) Sec. INR (0.87-1.13) APTT (24.2-36.6) Sec. Sodium 134 L (137-145) mmol/L Potassium 3.4 L (3.6-5.0) mmol/L Chloride 94.8 L (98-107) mmol/L Carbon Dioxide 25 (22-30) mmol/L Anion Gap 18 mmol/L BUN 30 H (7-17) mg/dL Creatinine 4.6 H (0.7-1.2) mg/dL Estimated GFR 13 ml/min BUN/Creatinine Ratio 7 % Glucose 172 H (65-100) mg/dL POC Glucose (70-105) Calcium 8.1 L (8.4-10.2) mg/dL Magnesium 2.00 (1.7-2.3) mg/dL Total Bilirubin 3.60 H (0.1-1.2) mg/dL AST 27 (5-40) units/L ALT 10 (7-56) units/L Alkaline Phosphatase 197 H (35-129) units/L Troponin T 0.165 H* (0.00-0.029) ng/mL Total Protein 7.0 (6.3-8.2) g/dL Albumin 2.3 L (3.9-5) g/dL Albumin/Globulin Ratio 0.5 % Triglycerides 99 (2-149) mg/dL Cholesterol 120 (50-199) mg/dL LDL Cholesterol Direct 74 (50-130) mg/dL HDL Cholesterol 28 L (40-59) mg/dL Cholesterol/HDL Ratio 4.28 % - Radiology Data Radiology results: report reviewed - Medical Decision Making discussed results with patient Critical care attestation.: If time is entered above; I have spent that time in minutes in the direct care of this critically ill patient, excluding procedure time. ED Disposition Clinical Impression: Syncope Disposition: OP ADMIT IP TO THIS HOSP Is pt being admited?: Yes Does the pt Need Aspirin: Yes Condition: Stable Instructions: Syncope (ED)
--- NOTE | 2019-07-26 16:07 | XRay Report ---
CHEST 1 VIEW INDICATION: syncope. COMPARISON: 07/05/2019 FINDINGS: Support devices: Left IJ permacath is in position. Heart: Mild cardiomegaly is stable. Lungs/Pleura: Mild central pulmonary venous congestion and small left pleural effusion are identified . No consolidation or pneumothorax. Additional findings: None. IMPRESSION: Mild volume overload. Signer Name: Michael Israel Jr, MD Signed: 07/26/2019 4:02 PM Workstation Name: [id number]
[2019-07-26 16:53] LABS: INR 1.58 (0.87-1.13); Partial Thromboplastin Time 29.7 Sec. (24.2-36.6)
[2019-07-26 16:57] LABS: Albumin 2.3 g/dL (3.9-5); Calcium 8.1 mg/dL (8.4-10.2)
[2019-07-26 17:07] LABS: Hematocrit 28.2 % (30.3-42.9); Mean Corpuscular HGB Conc 32 % (30-34); Mean Corpuscular Volume 97 fl (79-97); Platelet Count 226 K/mm3 (140-440); Red Blood Count 2.91 M/mm3 (3.65-5.03)
[2019-07-26 17:08] LABS: Red Cell Distribution Width 20.4 % (13.2-15.2)
[2019-07-26 17:10] LABS: Basophils % (Auto) 0.6 % (0.0-1.8); Lymphocytes % (Auto) 7.1 % (13.4-35.0); Monocytes % (Auto) 5.8 % (0.0-7.3)
[2019-07-26 17:11] LABS: Basophils # (Auto) 0.1 K/mm3 (0.0-0.1); Eosinophils # (Auto) 2.2 K/mm3 (0.0-0.4); Lymphocytes # (Auto) 1.1 K/mm3 (1.2-5.4); Monocytes # (Auto) 0.9 K/mm3 (0.0-0.8)
[2019-07-26 17:27] LABS: Chol/HDL Ratio 4.28 %
--- NOTE | 2019-07-26 17:30 | Cat Scan Report ---
CT head/brain wo con INDICATION / CLINICAL INFORMATION: 44 years Female; syncope. TECHNIQUE: Routine CT head without contrast. All CT scans at this location are performed using CT dos e reduction for ALARA by means of automated exposure control. COMPARISON: None. FINDINGS: BRAIN / INTRACRANIAL CONTENTS: The motion and positioning degrade the image quality. However, the bra in appears to demonstrate appropriate attenuation. The ventricular system is within normal limits in size and configuration. There is no clear CT evidence of acute intracranial hemorrhage or significant mass effect. CRANIOCERVICAL JUNCTION: No significant abnormality. ORBITS: No significant abnormality of visualized orbits. SINUSES / MASTOIDS: No significant abnormality the visualized paranasal sinuses or mastoid air cells. ADDITIONAL FINDINGS: None. IMPRESSION: 1. There is no CT ends of acute intracranial process. Signer Name: Quintin Trevino MD Signed: 07/26/2019 5:26 PM Workstation Name: [id number]
[2019-07-26] MEDS ORDERED: CEFEPIME/NS 2 GM/100 ML 2 GM/100 ML BAG IV ONE ×2 (18:46→19:49)
--- NOTE | 2019-07-26 18:51 | History and Physical Report ---
History of Present Illness Chief complaint: I got sick in dialysis History of present illness: 44 YO Female with ESRD on HD(M,W,F), HTN, DM, CHF, Nicotine Dependence, Noncompliance present to ED for evaluation. Pt states that she was in her usual state of health and went to her routine dialysis session. Pt states that she began feeling sick and confused, and subsequently lost consciousness. EMS notified and upon arrival the patient was found to be in distress. Pt transported to [facility]. Pt seen and evaluated in ED and found to have ESRD, Dialysis Disequilibrium Syndrome, Left Pnrumonia, and SIRS. Pt admitted to medical floor and initiated on Pneumonia protocol for HCAP. Nephrology consulted in ED. Pt denies fever, chills, CP, Palpitations, NVD, Trauma, prolonged travel/immobility, hemoptysis, unilateral leg swelling, or recent ill contacts. Prior admission on 07/06/19 reviewed. All listed medication reconciled at time of admission. Past History Past Medical History: diabetes, ESRD, hypertension Past Surgical History: , Other (dialysis access) Social history: single. denies: smoking, alcohol abuse, prescription drug abuse Family history: hypertension Medications and Allergies Allergies Allergy/AdvReac Type Severity Reaction Status Date / Time No Known Allergies Allergy Verified 03/12/19 12:23 Home Medications Medication Instructions Recorded Confirmed Last Taken Type Insulin NPH/Regular [NovoLIN 70/30] 5 unit SUB-Q BIDDIAB #10 ml 06/04/19 07/26/19 Unknown Rx Ergocalciferol(Vitamin D2)(Nf) 800 unit PO DAILY 07/06/19 07/26/19 Unknown History [Vitamin D (Nf)] cloNIDine [Catapres] 0.2 mg PO BID 07/06/19 07/26/19 Unknown History Lactulose [Cephulac] 20 gm PO BID 30 Days 07/14/19 07/26/19 Unknown Rx Pantoprazole [Protonix TAB] 40 mg PO QDAY #30 tablet 07/14/19 07/26/19 Unknown Rx oxyCODONE ER [oxyCONTIN ER] 10 mg PO Q12HR PRN #10 tablet 07/15/19 07/26/19 Unknown Rx Active Meds: Active Medications Cefepime HCl (Maxipime/Ns 2 Gm/100 Ml) 2 gm in 100 mls @ 200 mls/hr IV ONCE ONE; Protocol Stop: 10/07/19 19:15 Review of Systems Constitutional: no weight loss, no weight gain, no fever, no chills Ears, nose, mouth and throat: no ear pain, no ear discharge, no tinnitis, no decreased hearing, no nose pain, no nasal congestion Breasts: no change in shape, no swelling, no mass Cardiovascular: no chest pain, no orthopnea, no palpitations, no rapid/irregular heart beat, no edema, no syncope Respiratory: no cough, no cough with sputum, no excessive sputum, no hemoptysis Gastrointestinal: no nausea, no vomiting, no diarrhea, no constipation, no change in bowel habits Genitourinary Female: no pelvic pain, no flank pain, no menorrhagia, no dysuria, no urinary frequency, no urgency Rectal: no pain, no incontinence, no bleeding Musculoskeletal: no neck stiffness, no neck pain, no shooting arm pain, no arm numbness/tingling, no low back pain Integumentary: no rash, no pruritis, no redness, no sores, no wounds Neurological: no transient paralysis, no paralysis, no weakness, no parathesias, no numbness, no tingling Psychiatric: no anxiety, no memory loss, no change in sleep habits, no sleep disturbances, no insomnia, no hypersomnia, no change in appetite, no change in libido Endocrine: no cold intolerance, no heat intolerance, no polyphagia, no polydipsia, no polyuria, no excessive sweating Hematologic/Lymphatic: no easy bruising, no easy bleeding, no lymphadenopathy, no lymphedema Allergic/Immunologic: no urticaria, no allergic rhinitis, no persistent infections, no anaphylaxis Exam - Constitutional Vitals: Temp Pulse Resp BP Pulse Ox 97.5 F L 91 H 21 112/76 99 07/26/19 14:15 07/26/19 16:30 07/26/19 16:30 07/26/19 18:15 07/26/19 18:15 General appearance: Present: mild distress, obese - EENT Eyes: Present: PERRL ENT: hearing intact, clear oral mucosa - Neck Neck: Present: supple, normal ROM - Respiratory Respiratory effort: normal Respiratory: bilateral: diminished, rhonchi - Cardiovascular Heart Sounds: Present: S1 & S2. Absent: rub, click - Extremities Extremities: pulses symmetrical Extremity abnormal: edema Peripheral Pulses: within normal limits - Abdominal General gastrointestinal: Present: soft, non-tender, non-distended, normal bowel sounds Female genitourinary: Present: normal - Integumentary Integumentary: Present: clear, warm, dry - Musculoskeletal Musculoskeletal: gait normal, strength equal bilaterally - Psychiatric Psychiatric: appropriate mood/affect, intact judgment & insight, memory intact - Neurologic Neurologic: CNII-XII intact, moves all extremities Results - Labs CBC & Chem 7: 07/26/19 16:26 07/26/19 16:26 Labs: Abnormal lab results 07/26/19 07/26/19 07/26/19 Range/Units 14:37 16:26 16:26 WBC 16.0 H (4.5-11.0) K/mm3 RBC 2.91 L (3.65-5.03) M/mm3 Hgb 9.0 L (10.1-14.3) gm/dl Hct 28.2 L (30.3-42.9) % RDW 20.4 H (13.2-15.2) % Lymph % (Auto) 7.1 L (13.4-35.0) % Eos % (Auto) 14.0 H (0.0-4.3) % Lymph # 1.1 L (1.2-5.4) K/mm3 Anderson # 0.9 H (0.0-0.8) K/mm3 Eos # 2.2 H (0.0-0.4) K/mm3 Seg Neutrophils % 72.5 H (40.0-70.0) % Seg Neutrophils # 11.6 H (1.8-7.7) K/mm3 PT 18.5 H (12.2-14.9) Sec. INR 1.58 H (0.87-1.13) Sodium (137-145) mmol/L Potassium (3.6-5.0) mmol/L Chloride (98-107) mmol/L BUN (7-17) mg/dL Creatinine (0.7-1.2) mg/dL Glucose (65-100) mg/dL POC Glucose 197 H (70-105) Calcium (8.4-10.2) mg/dL Total Bilirubin (0.1-1.2) mg/dL Alkaline Phosphatase (35-129) units/L Troponin T (0.00-0.029) ng/mL Albumin (3.9-5) g/dL HDL Cholesterol (40-59) mg/dL 07/26/19 07/26/19 Range/Units 16:26 16:26 WBC (4.5-11.0) K/mm3 RBC (3.65-5.03) M/mm3 Hgb (10.1-14.3) gm/dl Hct (30.3-42.9) % RDW (13.2-15.2) % Lymph % (Auto) (13.4-35.0) % Eos % (Auto) (0.0-4.3) % Lymph # (1.2-5.4) K/mm3 Anderson # (0.0-0.8) K/mm3 Eos # (0.0-0.4) K/mm3 Seg Neutrophils % (40.0-70.0) % Seg Neutrophils # (1.8-7.7) K/mm3 PT (12.2-14.9) Sec. INR (0.87-1.13) Sodium 134 L (137-145) mmol/L Potassium 3.4 L (3.6-5.0) mmol/L Chloride 94.8 L (98-107) mmol/L BUN 30 H (7-17) mg/dL Creatinine 4.6 H (0.7-1.2) mg/dL Glucose 172 H (65-100) mg/dL POC Glucose (70-105) Calcium 8.1 L (8.4-10.2) mg/dL Total Bilirubin 3.60 H (0.1-1.2) mg/dL Alkaline Phosphatase 197 H (35-129) units/L Troponin T 0.165 H* (0.00-0.029) ng/mL Albumin 2.3 L (3.9-5) g/dL HDL Cholesterol 28 L (40-59) mg/dL Assessment and Plan - Patient Problems (1) ESRD (end stage renal disease) Current Visit: Yes Status: Acute Plan to address problem: Nephrology consulted in ED, dialysis as per renal team, strict I/O, daily joyce ght, monitor uop q shift, (2) Pneumonia Current Visit: Yes Status: Acute Qualifiers: Laterality: left Lung location: lower lobe of lung Plan to address problem: HCAP Protocol: IV antibiotic therapy, supplemental oxygen, nebulizer therapy, chest x ray, pulse oximetry, (3) SIRS (systemic inflammatory response syndrome) Current Visit: Yes Status: Acute Plan to address problem: CBC, CMP, Urinalysis, chest x ray, IV antibiotic therapy, blood cultures. (4) Diabetes Current Visit: Yes Status: Acute Plan to address problem: ADA diet, insulin therapy, accu check, hypoglycemia protocol. (5) HTN (hypertension) Current Visit: Yes Status: Acute Qualifiers: Hypertension type: essential hypertension Qualified Code(s): I10 - Essent ial (primary) hypertension Plan to address problem: Monitor BP q shift, continue medical management. (6) DVT prophylaxis Current Visit: Yes Status: Acute Plan to address problem: SCD to BLE while in bed, supportive care,
[2019-07-26] MEDS ORDERED: ASPIRIN 81 MG TAB CHEW PO ONE (19:06)
[2019-07-26] MEDS ORDERED: ACETAMINOPHEN 325 MG TAB PO PRN (19:25)
[2019-07-26] MEDS ORDERED: ALBUTEROL 2.5 MG/3 ML NEBU IH PRN (19:25)
[2019-07-26] MEDS ORDERED: ONDANSETRON 4 MG/2 ML INJ IV PRN (19:25)
[2019-07-26] MEDS ORDERED: VANCOMYCIN 2,000 MG in SODIUM CHLORIDE 0.9% 500 ML 500 ML IV ONE (19:29)
[2019-07-26] MEDS ORDERED: oxyCODONE ER 10 MG TAB PO PRN (19:30)
[2019-07-26] MEDS ORDERED: ASPIRIN 81 MG TAB CHEW ONE (19:49)
[2019-07-26] MEDS: cloNIDine 0.2 MG TAB PO SCH (22:49)
[2019-07-26] MEDS: LACTULOSE 20 GM/30 ML ORAL LIQD PO SCH ×2 (22:49→22:53)
[2019-07-26] MEDS: CEFEPIME/NS 2 GM/100 ML 2 GM/100 ML BAG IV SCH (23:00)
[2019-07-27] MEDS: CEFEPIME/NS 2 GM/100 ML 2 GM/100 ML BAG IV SCH ×2 (00:27→05:53)
[2019-07-27 07:51] LABS: Albumin 2.6 g/dL (3.9-5); Calcium 8.3 mg/dL (8.4-10.2)
[2019-07-27] MEDS ORDERED: MORPHINE 2 MG/1 ML INJ IV PRN (10:25)
[2019-07-27] MEDS ORDERED: diphenhydrAMINE 25 MG CAP PO PRN (10:25)
[2019-07-27] MEDS ORDERED: DEXTROSE 50% IN WATER (25GM) 50 ML SYRINGE IV PRN (10:27)
[2019-07-27] MEDS: LACTULOSE 20 GM/30 ML ORAL LIQD PO SCH ×2 (10:35→22:01)
[2019-07-27] MEDS: PANTOPRAZOLE 40 MG TAB PO SCH (10:35)
[2019-07-27] MEDS: cloNIDine 0.2 MG TAB PO SCH (10:36)
--- NOTE | 2019-07-27 11:56 | Consultation ---
History of Present Illness - Reason for Consult Consult date: 07/27/19 end stage renal disease Requesting physician: PAUL CONTI - History of Present Illness The patient presents to the emergency department from dialysis for syncopal episode. Patient states that she was beginning dialysis when she reportedly passed out. Per the patient's sister she was told by the nurses at dialysis that the patient had a loss pulse and received 60 chest compressions along with 300 mL of fluid with return of consciousness. The patient's dialysis nurse did call the ED and confirmed the story. Patient denies having any chest pain prior to or after this episode. Patient denies any abdominal pain, headache, or shortness of breath. -: Sudden Severity scale (0 -10): 0 Improves with: none Worsens with: none Associated Symptoms: denies other symptoms Treatments Prior to Arrival: none ROS: Stated complaint: SYNCOPE Other details as noted in HPI Comment: All other systems reviewed and negative Constitutional: denies: chills, fever Eyes: denies: eye pain, eye discharge, vision change ENT: denies: ear pain, throat pain Respiratory: denies: cough, shortness of breath, wheezing Cardiovascular: denies: chest pain, palpitations Endocrine: no symptoms reported Gastrointestinal: denies: abdominal pain, nausea, diarrhea Genitourinary: denies: urgency, dysuria, discharge Musculoskeletal: denies: back pain, joint swelling, arthralgia Skin: denies: rash, lesions Neurological: denies: headache, weakness, paresthesias Psychiatric: denies: anxiety, depression Hematological/Lymphatic: denies: easy bleeding, easy bruising - Past Medical History Previous Medical History?: Yes Hx Hypertension: Yes Hx Heart Attack/AMI: No Hx Congestive Heart Failure: Yes Hx Diabetes: Yes Hx Deep Vein Thrombosis: No Hx Pulmonary Embolism: No Hx Liver Disease: Yes Hx Renal Disease: Yes Hx Asthma: No Hx COPD: Yes Hx Tuberculosis: No Hx HIV: No - Surgical History Past Surgical History?: Yes Hx Coronary Stent: No Hx Pacemaker: No Hx Internal Defibrillator: No Additional Surgical History: Perm cath, - Social History Smoking Status: Never Smoker Substance Use Type: Marijuana Past History Past Medical History: diabetes, ESRD, hypertension Past Surgical History: , Other (dialysis access) Social history: single. denies: smoking, alcohol abuse, prescription drug abuse Family history: hypertension Medications and Allergies Allergies Allergy/AdvReac Type Severity Reaction Status Date / Time No Known Allergies Allergy Verified 03/12/19 12:23 Home Medications Medication Instructions Recorded Confirmed Last Taken Type Insulin NPH/Regular [NovoLIN 70/30] 5 unit SUB-Q BIDDIAB #10 ml 06/04/19 07/26/19 Unknown Rx Ergocalciferol(Vitamin D2)(Nf) 800 unit PO DAILY 07/06/19 07/26/19 Unknown History [Vitamin D (Nf)] cloNIDine [Catapres] 0.2 mg PO BID 07/06/19 07/26/19 Unknown History Lactulose [Cephulac] 20 gm PO BID 30 Days 07/14/19 07/26/19 Unknown Rx Pantoprazole [Protonix TAB] 40 mg PO QDAY #30 tablet 07/14/19 07/26/19 Unknown Rx oxyCODONE ER [oxyCONTIN ER] 10 mg PO Q12HR PRN #10 tablet 07/15/19 07/26/19 Unknown Rx Active Meds: Active Medications Acetaminophen (Tylenol) 650 mg PO Q4H PRN PRN Reason: Pain MILD(1-3)/Fever >100.5/[place] Albuterol (Proventil) 2.5 mg IH Q4HRT PRN PRN Reason: Shortness Of Breath Cholecalciferol (Vitamin D3) 800 unit PO DAILY [facility] Clonidine HCl (Catapres) 0.2 mg PO BID [facility] Last Admin: 07/27/19 10:36 Dose: Not Given Documented by: Dextrose (D50w (25gm) Syringe) 50 ml IV PRN PRN PRN Reason: Hypoglycemia Diphenhydramine HCl (Benadryl) 25 mg PO Q8H PRN PRN Reason: Itching Fluconazole (Diflucan) 150 mg PO ONCE ONE Stop: 07/27/19 12:01 Insulin Human Lispro (Humalog) 0 unit SUB-Q [facility]; Protocol Lactulose (Cephulac) 20 gm PO BID [facility] Last Admin: 07/27/19 10:35 Dose: 20 gm Documented by: Morphine Sulfate (Morphine) 2 mg IV Q4H PRN PRN Reason: Pain , Severe (7-10) Ondansetron HCl (Zofran) 4 mg IV Q8H PRN PRN Reason: Nausea And Vomiting Oxycodone HCl (Oxycontin) 10 mg PO Q12HR PRN PRN Reason: Pain, Moderate (4-6) Pantoprazole Sodium (Protonix) 40 mg PO QDAY [facility] Last Admin: 07/27/19 10:35 Dose: 40 mg Documented by: Sodium Chloride (Sodium Chloride Flush Syringe 10 Ml) 10 ml IV BID [facility] Last Admin: 07/27/19 10:35 Dose: 10 ml Documented by: Sodium Chloride (Sodium Chloride Flush Syringe 10 Ml) 10 ml IV PRN PRN PRN Reason: LINE FLUSH Exam - Vital Signs Vital signs: Vital Signs Temp Pulse Resp BP Pulse Ox 97.5 F L 111 H 20 96/50 100 07/26/19 14:15 07/26/19 14:15 07/26/19 14:15 07/26/19 14:15 07/26/19 14:15 - Physical Exam Narrative exam: - General Limitations: Physical Limitation General appearance: alert, in no apparent distress - Head Head exam: Present: atraumatic, normocephalic - Eye Eye exam: Present: normal appearance, PERRL, EOMI - ENT ENT exam: Present: mucous membranes moist - Neck Neck exam: Present: normal inspection - Respiratory Respiratory exam: Present: normal lung sounds bilaterally. Absent: respiratory distress - Cardiovascular Cardiovascular Exam: Present: normal rhythm, tachycardia, irregular rhythm. Absent: systolic murmur, diastolic murmur, rubs, gallop - GI/Abdominal GI/Abdominal exam: Present: soft, normal bowel sounds. Absent: distended, tenderness - Extremities Exam Extremities exam: Present: normal inspection - Back Exam Back exam: Present: normal inspection - Neurological Exam Neurological exam: Present: alert, oriented X3, CN II-XII intact. Absent: motor sensory deficit - Psychiatric Psychiatric exam: Present: normal affect, normal mood - Skin Skin exam: Present: warm, dry, intact, normal color. Absent: rash Results - Lab Results 07/26/19 16:26 07/27/19 07:07 Most recent lab results Calcium 8.3 mg/dL (8.4-10.2) L 07/27/19 07:07 Magnesium 2.00 mg/dL (1.7-2.3) 07/26/19 16:26 Assessment and Plan Assessment * End-stage renal disease * Bilateral LE wound infection--klebsiella and enterococcus * syncope * Calciphylaxis * Hypontaremia * Anemia secondary to ESRD * Peripheral edema * Medical noncompliance Plan: * Continue hemodialysis MWF * UF as tolerated * stop bp meds * Abx per primary team - rec id consult for wound infection * Have discussed with geometrician. currently receiving HBO treatment * Sodium Thiosulfate at outpatient dialysis clinic * Epogen TIW prn * Renal diet * Dose medications for renal function
[2019-07-27] MEDS ORDERED: FLUCONAZOLE 150 MG TAB PO ONE (12:00)
[2019-07-27] MEDS ORDERED: SODIUM CHLORIDE 0.9% 100 ML IV PRN (12:01)
[2019-07-27] MEDS: INSULIN LISPRO 100 UNIT/ML SUB-Q SCH ×3 (12:44→22:01)
[2019-07-27] MEDS: CHOLECALCIFEROL (VIT D3) 400 UNIT TAB PO SCH (12:44)
--- NOTE | 2019-07-27 14:46 | Consultation ---
History of Present Illness - Reason for Consult Consult date: 07/27/19 - History of Present Illness 44 yo F PMhx ESRD on HD, Dm2, HTn, nicotine dependence admitted to the hospital after coding during dialysis where she received approximately 60 compressions. Prior to the dialysis session she notes that she had been in er usual state of health, but began to feel unwell during the session. Presently she notes feeling very tired, but otherwise denies fevers, sweats, chills, or other complaints. She has bilateral leg wounds which she notes have been present for a couple of months. During her last asdmission to this hospital she was seen by our group for the wounds, and an Enterococcus faecalis bacteremia. No clear etiology was found at that time for her wounds, thought to be venous stasis vs calciphylaxis. Afebrile with an elevated white count. Not currently on antibiotics. Wound cu ltures pending. Imaging personally reviewed: CXR with mild overload. Review of Systems: Bold if positive, otherwise negative General: fevers, chills, rigors, fatigue HEENT: visual disturbance, diplopia, eye pain Respiratory: cough, sputum, hemoptysis, shortness of breath Cardiovascular: chest pain, syncope Gastrointestinal: nausea, vomiting, diarrhea, abdominal pain Genitourinary: dysuria, hematuria, flank pain Musculoskeletal: neck pain, back pain, joint pain, edema Neurologic: headaches, seizures Hematologic: easy bruising or bleeding Endocrine: night sweats, acute weight loss Skin: rash, jaundice, redness Psychiatric: suicidal, homicidal ideation Past History Past Medical History: diabetes, ESRD, hypertension Past Surgical History: , Other (dialysis access) Social history: single. denies: smoking, alcohol abuse, prescription drug abuse Family history: hypertension Medications and Allergies Allergies Allergy/AdvReac Type Severity Reaction Status Date / Time No Known Allergies Allergy Verified 03/12/19 12:23 Home Medications Medication Instructions Recorded Confirmed Last Taken Type Insulin NPH/Regular [NovoLIN 70/30] 5 unit SUB-Q BIDDIAB #10 ml 06/04/19 07/26/19 Unknown Rx Ergocalciferol(Vitamin D2)(Nf) 800 unit PO DAILY 07/06/19 07/26/19 Unknown History [Vitamin D (Nf)] cloNIDine [Catapres] 0.2 mg PO BID 07/06/19 07/26/19 Unknown History Lactulose [Cephulac] 20 gm PO BID 30 Days 07/14/19 07/26/19 Unknown Rx Pantoprazole [Protonix TAB] 40 mg PO QDAY #30 tablet 07/14/19 07/26/19 Unknown Rx oxyCODONE ER [oxyCONTIN ER] 10 mg PO Q12HR PRN #10 tablet 07/15/19 07/26/19 Unknown Rx Active Meds: Active Medications Acetaminophen (Tylenol) 650 mg PO Q4H PRN PRN Reason: Pain MILD(1-3)/Fever >100.5/[place] Albuterol (Proventil) 2.5 mg IH Q4HRT PRN PRN Reason: Shortness Of Breath Cholecalciferol (Vitamin D3) 800 unit PO DAILY [facility] Last Admin: 07/27/19 12:44 Dose: 800 unit Documented by: Dextrose (D50w (25gm) Syringe) 50 ml IV PRN PRN PRN Reason: Hypoglycemia Diphenhydramine HCl (Benadryl) 25 mg PO Q8H PRN PRN Reason: Itching Sodium Chloride (Nacl 0.9%) 100 mls @ 999 mls/hr IV AMBER PRN PRN Reason: Hypotension Insulin Human Lispro (Humalog) 0 unit SUB-Q ACHS [facility]; Protocol Last Admin: 07/27/19 12:44 Dose: 3 unit Documented by: Lactulose (Cephulac) 20 gm PO BID [facility] Last Admin: 07/27/19 10:35 Dose: 20 gm Documented by: Morphine Sulfate (Morphine) 2 mg IV Q4H PRN PRN Reason: Pain , Severe (7-10) Ondansetron HCl (Zofran) 4 mg IV Q8H PRN PRN Reason: Nausea And Vomiting Oxycodone HCl (Oxycontin) 10 mg PO Q12HR PRN PRN Reason: Pain, Moderate (4-6) Pantoprazole Sodium (Protonix) 40 mg PO QDAY [facility] Last Admin: 07/27/19 10:35 Dose: 40 mg Documented by: Sodium Chloride (Sodium Chloride Flush Syringe 10 Ml) 10 ml IV BID [facility] Last Admin: 07/27/19 10:35 Dose: 10 ml Documented by: Sodium Chloride (Sodium Chloride Flush Syringe 10 Ml) 10 ml IV PRN PRN PRN Reason: LINE FLUSH Physical Examination - Physical Exam Narrative exam: Constitutional: Alert, cooperative. No acute distress Head, Ears, Nose: Normocephalic, atraumatic. External ears, nose normal Eyes: Conjunctivae/corneas clear. No icterus. No ptosis. Neck: Supple, no meningeal signs Oral: dentition fair, no thrush Cardiovascular: S1, S2 normal. Respiratory: Good air entry, clear to auscultation bilaterally GI: Soft, non-tender; bowel sounds normal. No peritoneal signs. Musculoskeletal: No pedal edema, no cyanosis. Skin: Bilateral leg wounds. Pictures in chart noted. Hem/Lymphatic: No palpable cervical or supraclavicular nodes. No lymphangitis Psych: Mood ok. Affect normal Neurological: Awake, alert, oriented. No gross abnormality - Constitutional Vitals: Vital Signs Temp Pulse Resp BP Pulse Ox 98.2 F 95 H 20 109/56 96 07/27/19 05:06 07/27/19 12:30 07/27/19 10:32 07/27/19 12:30 07/27/19 12:30 Temperature -Last 24 Hours Temperature 98.2 F Temperature 98.6 F Temperature 97.9 F Results - Labs CBC & Chem 7: 07/26/19 16:26 07/27/19 07:07 Labs: Abnormal lab results 07/26/19 07/26/19 07/26/19 Range/Units 14:37 16:26 16:26 WBC 16.0 H (4.5-11.0) K/mm3 RBC 2.91 L (3.65-5.03) M/mm3 Hgb 9.0 L (10.1-14.3) gm/dl Hct 28.2 L (30.3-42.9) % RDW 20.4 H (13.2-15.2) % Lymph % (Auto) 7.1 L (13.4-35.0) % Eos % (Auto) 14.0 H (0.0-4.3) % Lymph # 1.1 L (1.2-5.4) K/mm3 [place] # 0.9 H (0.0-0.8) K/mm3 Eos # 2.2 H (0.0-0.4) K/mm3 Seg Neutrophils % 72.5 H (40.0-70.0) % Seg Neutrophils # 11.6 H (1.8-7.7) K/mm3 PT 18.5 H (12.2-14.9) Sec. INR 1.58 H (0.87-1.13) Sodium (137-145) mmol/L Potassium (3.6-5.0) mmol/L Chloride (98-107) mmol/L BUN (7-17) mg/dL Creatinine (0.7-1.2) mg/dL Glucose (65-100) mg/dL POC Glucose 197 H (70-105) Lactic Acid (0.7-2.0) mmol/L Calcium (8.4-10.2) mg/dL Total Bilirubin (0.1-1.2) mg/dL ALT (7-56) units/L Alkaline Phosphatase (35-129) units/L Troponin T (0.00-0.029) ng/mL Albumin (3.9-5) g/dL HDL Cholesterol (40-59) mg/dL 07/26/19 07/26/19 07/26/19 Range/Units 16:26 16:26 19:40 WBC (4.5-11.0) K/mm3 RBC (3.65-5.03) M/mm3 Hgb (10.1-14.3) gm/dl Hct (30.3-42.9) % RDW (13.2-15.2) % Lymph % (Auto) (13.4-35.0) % Eos % (Auto) (0.0-4.3) % Lymph # (1.2-5.4) K/mm3 [place] # (0.0-0.8) K/mm3 Eos # (0.0-0.4) K/mm3 Seg Neutrophils % (40.0-70.0) % Seg Neutrophils # (1.8-7.7) K/mm3 PT (12.2-14.9) Sec. INR (0.87-1.13) Sodium 134 L (137-145) mmol/L Potassium 3.4 L (3.6-5.0) mmol/L Chloride 94.8 L (98-107) mmol/L BUN 30 H (7-17) mg/dL Creatinine 4.6 H (0.7-1.2) mg/dL Glucose 172 H (65-100) mg/dL POC Glucose (70-105) Lactic Acid (0.7-2.0) mmol/L Calcium 8.1 L (8.4-10.2) mg/dL Total Bilirubin 3.60 H (0.1-1.2) mg/dL ALT (7-56) units/L Alkaline Phosphatase 197 H (35-129) units/L Troponin T 0.165 H* 0.163 H* (0.00-0.029) ng/mL Albumin 2.3 L (3.9-5) g/dL HDL Cholesterol 28 L (40-59) mg/dL 07/26/19 07/26/19 07/27/19 Range/Units 19:40 22:02 07:07 WBC (4.5-11.0) K/mm3 RBC (3.65-5.03) M/mm3 Hgb (10.1-14.3) gm/dl Hct (30.3-42.9) % RDW (13.2-15.2) % Lymph % (Auto) (13.4-35.0) % Eos % (Auto) (0.0-4.3) % Lymph # (1.2-5.4) K/mm3 [place] # (0.0-0.8) K/mm3 Eos # (0.0-0.4) K/mm3 Seg Neutrophils % (40.0-70.0) % Seg Neutrophils # (1.8-7.7) K/mm3 PT (12.2-14.9) Sec. INR (0.87-1.13) Sodium 135 L (137-145) mmol/L Potassium 3.5 L (3.6-5.0) mmol/L Chloride 94.8 L (98-107) mmol/L BUN 34 H (7-17) mg/dL Creatinine 4.9 H (0.7-1.2) mg/dL Glucose 218 H (65-100) mg/dL POC Glucose (70-105) Lactic Acid 2.40 H* 2.80 H* (0.7-2.0) mmol/L Calcium 8.3 L (8.4-10.2) mg/dL Total Bilirubin 3.10 H (0.1-1.2) mg/dL ALT 6 L (7-56) units/L Alkaline Phosphatase 209 H (35-129) units/L Troponin T (0.00-0.029) ng/mL Albumin 2.6 L (3.9-5) g/dL HDL Cholesterol (40-59) mg/dL 07/27/19 Range/Units 07:13 WBC (4.5-11.0) K/mm3 RBC (3.65-5.03) M/mm3 Hgb (10.1-14.3) gm/dl Hct (30.3-42.9) % RDW (13.2-15.2) % Lymph % (Auto) (13.4-35.0) % Eos % (Auto) (0.0-4.3) % Lymph # (1.2-5.4) K/mm3 [place] # (0.0-0.8) K/mm3 Eos # (0.0-0.4) K/mm3 Seg Neutrophils % (40.0-70.0) % Seg Neutrophils # (1.8-7.7) K/mm3 PT (12.2-14.9) Sec. INR (0.87-1.13) Sodium (137-145) mmol/L Potassium (3.6-5.0) mmol/L Chloride (98-107) mmol/L BUN (7-17) mg/dL Creatinine (0.7-1.2) mg/dL Glucose (65-100) mg/dL POC Glucose (70-105) Lactic Acid 2.60 H* (0.7-2.0) mmol/L Calcium (8.4-10.2) mg/dL Total Bilirubin (0.1-1.2) mg/dL ALT (7-56) units/L Alkaline Phosphatase (35-129) units/L Troponin T (0.00-0.029) ng/mL Albumin (3.9-5) g/dL HDL Cholesterol (40-59) mg/dL Assessment and Plan Cultures: L wound culture: - rare PMNs and mod GNR R wound culture: No PMNs, rare GNR 07/26 BCx - NGTD A/P: 44 yo F PMhx ESRD on HD, Dm2, HTn, nicotine dependence admitted after coding in dialysis. Chronic leg wounds of uncertain etiology. 1. SIRS - Likely non-infectious. Present with fevers and leukocytosis. Likely secondary to chest compressions. Would follow WBC to ensure stable decline. 2. [place] bilateral leg wounds - unclear etiology presently. Venous stasis vs. calciphylaxis vs pyoderma gangrenosum. None of these etiologies are inherently infective, though they can become superinfected. Ultimately she needs and biopsy sent for pathology for definitive diagnosis. Given the paucity of WBC on both l eg cultures, would recommend holding on antibiotics for now, and monitoring progress. 3. DM2 - tight glycemic control for wound healing 4. ESRD on HD - renally dose medications Recs: - hold on antibiotics for now - ultimately needs biopsy of wounds. Can be done as outpatient if preferred, not urgent - follow blood and wound cultures - follow temperature curve - follow WBC Thank you for the consult, we will continue to follow. MD Sophia [facility] M: [phone] O: [phone] F: [phone]
[2019-07-27] MEDS ORDERED: SODIUM CHLORIDE*PRIMING MACHINE ONLY FOR DIALYSIS MC ONE (15:09)
--- NOTE | 2019-07-27 15:37 | Progress Note ---
Assessment and Plan Assessment and plan: Patient is a 44 yo woman with ESRD on HD (M,W,F), HTN, DM, CHF, Nicotine Dependence and left leg Calichylaxis undergoing Hyperbariac O2 under Dr. Cheko Michelle who presented to [facility] ED with AMS/confusion and subsequently lose of consciousness. EMS notified and upon arrival, the patient was found to be in distress and brief CPR done prior to EMS. She was found to have ESRD, Dialysis Disequilibrium Syndrome and SIRS. Pt admitted to medical floor and initiated on Pneumonia protocol for HCAP. Nephrology consulted in ED. Pt denies fever, chills, CP, Palpitations, NVD, Trauma, prolonged travel/immobility, hemoptysis, unilateral leg swelling, or recent ill contacts. Prior admission on 07/06/19 reviewed. All listed medication reconciled at time of admission. ESRD needing Hemodialysis, as pCXR shows fluid overload: Nephrology consulted, needs HD SIRS without organ dysfunction: ID consulted, input noted Ruled out Pneumonia: HCAP Protocol: stop IV antibiotic therapy, supplemental oxygen, nebulizer therapy, chest x ray, pulse oximetry, Diabetes Mellitus type 2: ADA diet, insulin therapy, accu check, hypoglycemia protocol. HTN (hypertension): Monitor BP q shift, continue medical management. DVT prophylaxis: SCD to BLE while in bed, supportive care, Chronic bilateral leg wounds - unclear etiology presently. calciphylaxis vs pyoderma gangrenosum vs other: Continue wound care from Dr. Michelle's office Functional quadriplegia, non ambulatory now: consult Physical Therapy Morbid Obesity, bmi 50: primary substance abuse counselor on weight reduction Diffuse scaly plaques since Hyperbaric O2 therapy begun Stage 2 and 3 buttock pressure ulcers, poa: wound care DVT ppx: sq heparin History Interval history: Patient was seen and examined. Follow-up on current diagnosis of ESRD. No overnight events reported to me. Patient denies any chest pain, shortness breath, nausea/vomiting or severe headaches. Imaging, nursing note, chart, labs and old chart reviewed. Discussed with patient with mother at bedside Hospitalist Physical - Physical exam Narrative exam: Gen: bmi 50.7 NAD, Awake, Alert, Orientated HEENT: NCAT, EOMI, PERRL, OP Clear Neck: supple, no adenopathy, no thyromegaly, no JVD CVS/Heart: RRR, normal S1S2, pulses present bilaterally Chest/Lungs: CTA B, Symmetrical chest expansion, good air entry bilaterally GI/Abdomen: soft, NTND, good bowel sounds, no guarding or rebound /Bladder: no suprapubic tenderness, no CVA or paraspinal tenderness Extermity/Skin: left leg looks like PG to me, diffuse scaly plaque everywhere MSK: FROM x 4 Neuro: CN 2-12 grossly intact, no new focal deficits Psych: calm - Constitutional Vitals: Temp Pulse Resp BP Pulse Ox 98.2 F 92 H 18 98/28 96 07/27/19 13:15 07/27/19 14:30 07/27/19 13:15 07/27/19 14:30 07/27/19 12:30 General appearance: Present: mild distress, obese Results - Labs CBC & Chem 7: 07/26/19 16:26 07/27/19 07:07 Labs: Laboratory Last Values WBC 16.0 K/mm3 (4.5-11.0) H 07/26/19 16:26 RBC 2.91 M/mm3 (3.65-5.03) L 07/26/19 16:26 Hgb 9.0 gm/dl (10.1-14.3) L 07/26/19 16:26 Hct 28.2 % (30.3-42.9) L 07/26/19 16:26 MCV 97 fl (79-97) 07/26/19 16:26 MCH 31 pg (28-32) 07/26/19 16:26 MCHC 32 % (30-34) 07/26/19 16:26 RDW 20.4 % (13.2-15.2) H 07/26/19 16:26 Plt Count 226 K/mm3 (140-440) 07/26/19 16:26 Lymph % (Auto) 7.1 % (13.4-35.0) L 07/26/19 16:26 [place] % (Auto) 5.8 % (0.0-7.3) 07/26/19 16:26 Eos % (Auto) 14.0 % (0.0-4.3) H 07/26/19 16:26 Baso % (Auto) 0.6 % (0.0-1.8) 07/26/19 16:26 Lymph # 1.1 K/mm3 (1.2-5.4) L 07/26/19 16:26 [place] # 0.9 K/mm3 (0.0-0.8) H 07/26/19 16:26 Eos # 2.2 K/mm3 (0.0-0.4) H 07/26/19 16:26 Baso # 0.1 K/mm3 (0.0-0.1) 07/26/19 16:26 Seg Neutrophils % 72.5 % (40.0-70.0) H 07/26/19 16:26 Seg Neutrophils # 11.6 K/mm3 (1.8-7.7) H 07/26/19 16:26 PT 18.5 Sec. (12.2-14.9) H 07/26/19 16:26 INR 1.58 (0.87-1.13) H 07/26/19 16:26 APTT 29.7 Sec. (24.2-36.6) 07/26/19 16:26 Sodium 135 mmol/L (137-145) L 07/27/19 07:07 Potassium 3.5 mmol/L (3.6-5.0) L 07/27/19 07:07 Chloride 94.8 mmol/L (98-107) L 07/27/19 07:07 Carbon Dioxide 23 mmol/L (22-30) 07/27/19 07:07 Anion Gap 21 mmol/L 07/27/19 07:07 BUN 34 mg/dL (7-17) H 07/27/19 07:07 Creatinine 4.9 mg/dL (0.7-1.2) H 07/27/19 07:07 Estimated GFR 12 ml/min 07/27/19 07:07 BUN/Creatinine Ratio 7 % 07/27/19 07:07 Glucose 218 mg/dL (65-100) H 07/27/19 07:07 POC Glucose 197 (70-105) H 07/26/19 14:37 Lactic Acid 2.60 mmol/L (0.7-2.0) H* 07/27/19 07:13 Calcium 8.3 mg/dL (8.4-10.2) L 07/27/19 07:07 Magnesium 2.00 mg/dL (1.7-2.3) 07/26/19 16:26 Total Bilirubin 3.10 mg/dL (0.1-1.2) H 07/27/19 07:07 AST 32 units/L (5-40) 07/27/19 07:07 ALT 6 units/L (7-56) L 07/27/19 07:07 Alkaline Phosphatase 209 units/L (35-129) H 07/27/19 07:07 Troponin T 0.163 ng/mL (0.00-0.029) H* 07/26/19 19:40 Total Protein 7.5 g/dL (6.3-8.2) 07/27/19 07:07 Albumin 2.6 g/dL (3.9-5) L 07/27/19 07:07 Albumin/Globulin Ratio 0.5 % 07/27/19 07:07 Triglycerides 99 mg/dL (2-149) 07/26/19 16:26 Cholesterol 120 mg/dL (50-199) 07/26/19 16:26 LDL Cholesterol Direct 74 mg/dL (50-130) 07/26/19 16:26 HDL Cholesterol 28 mg/dL (40-59) L 07/26/19 16:26 Cholesterol/HDL Ratio 4.28 % 07/26/19 16:26 Active Medications - Current Medications Current Medications: Generic Name Dose Route Start Last Admin Trade Name Gumeq PRN Reason Stop Dose Admin Acetaminophen 650 mg 07/26/19 19:25 Tylenol PO Q4H PRN Pain MILD(1-3)/Fever >100.5/[place] Albuterol 2.5 mg 07/26/19 19:25 Proventil IH Q4HRT PRN Shortness Of Breath Cholecalciferol 800 unit 07/27/19 10:00 07/27/19 12:44 Vitamin D3 PO 800 unit DAILY [facility] Administration Dextrose 50 ml 07/27/19 10:27 D50w (25gm) Syringe IV PRN PRN Hypoglycemia Diphenhydramine HCl 25 mg 07/27/19 10:25 Benadryl PO Q8H PRN Itching Sodium Chloride 100 mls @ 999 mls/hr 07/27/19 12:01 Nacl 0.9% IV AMBER PRN Hypotension Insulin Human Lispro 0 unit 07/27/19 11:30 07/27/19 12:44 Humalog SUB-Q 3 unit ACHS [facility] Administration Protocol Lactulose 20 gm 07/26/19 22:00 07/27/19 10:35 Cephulac PO 20 gm BID [facility] Administration Morphine Sulfate 2 mg 07/27/19 10:25 Morphine IV Q4H PRN Pain , Severe (7-10) Ondansetron HCl 4 mg 07/26/19 19:25 Zofran IV Q8H PRN Nausea And Vomiting Oxycodone HCl 10 mg 07/27/19 10:37 Oxycontin PO Q12HR PRN Pain, Moderate (4-6) Pantoprazole Sodium 40 mg 07/27/19 10:00 07/27/19 10:35 Protonix PO 40 mg QDAY [facility] Administration Sodium Chloride 10 ml 07/26/19 22:00 07/27/19 10:35 Sodium Chloride Flush Syringe 10 Ml IV 10 ml BID [facility] Administration Sodium Chloride 10 ml 07/26/19 19:25 Sodium Chloride Flush Syringe 10 Ml IV PRN PRN LINE FLUSH
[2019-07-27] MEDS: oxyCODONE ER 10 MG TAB PO PRN (20:18)
[2019-07-27] MEDS ORDERED: CEFEPIME/NS 1 GM/100 ML 1 GM/100 ML BAG IV SCH (22:00)
[2019-07-28] MEDS: INSULIN LISPRO 100 UNIT/ML SUB-Q SCH ×3 (08:34→18:12)
[2019-07-28] MEDS: oxyCODONE ER 10 MG TAB PO PRN (08:35)
[2019-07-28] MEDS: LACTULOSE 20 GM/30 ML ORAL LIQD PO SCH (09:55)
[2019-07-28] MEDS: PANTOPRAZOLE 40 MG TAB PO SCH (09:56)
--- NOTE | 2019-07-28 10:25 | Progress Note ---
Assessment and Plan Assessment * End-stage renal disease * Bilateral LE wound infection--klebsiella and enterococcus * syncope * Calciphylaxis * Hypontaremia * Anemia secondary to ESRD * Peripheral edema * Medical noncompliance Plan: * Continue hemodialysis MWF * midodrine prior to hd * UF as tolerated * stopped bp meds * Abx per primary team - rec id consult for wound infection * Have discussed with interior design director. currently receiving HBO treatment * Sodium Thiosulfate at outpatient dialysis clinic * Epogen TIW prn * Renal diet * Dose medications for renal function * ok for dc from renal standpoint Subjective Date of service: 07/28/19 Principal diagnosis: esrd Interval history: resting well in bed Objective - Exam Narrative Exam: - General Limitations: Physical Limitation General appearance: alert, in no apparent distress - Head Head exam: Present: atraumatic, normocephalic - Eye Eye exam: Present: normal appearance, PERRL, EOMI - ENT ENT exam: Present: mucous membranes moist - Neck Neck exam: Present: normal inspection - Respiratory Respiratory exam: Present: normal lung sounds bilaterally. Absent: respiratory distress - Cardiovascular Cardiovascular Exam: Present: normal rhythm, tachycardia, irregular rhythm. Absent: systolic murmur, diastolic murmur, rubs, gallop - GI/Abdominal GI/Abdominal exam: Present: soft, normal bowel sounds. Absent: distended, tenderness - Extremities Exam Extremities exam: Present: normal inspection - Back Exam Back exam: Present: normal inspection - Neurological Exam Neurological exam: Present: alert, oriented X3, CN II-XII intact. Absent: motor sensory deficit - Psychiatric Psychiatric exam: Present: normal affect, normal mood - Skin Skin exam: Present: warm, dry, intact, normal color. Absent: rash - Vital Signs Vital signs: Vital Signs - 12hr 07/28/19 07/28/19 07/28/19 05:06 05:59 09:47 Temperature 98.6 F Pulse Rate 103 H Respiratory 16 Rate Blood Pressure 105/59 O2 Sat by Pulse 96 99 100 Oximetry - Lab 07/26/19 16:26 07/27/19 07:07 Most recent lab results Calcium 8.3 mg/dL (8.4-10.2) L 07/27/19 07:07 Magnesium 2.00 mg/dL (1.7-2.3) 07/26/19 16:26 Medications & Allergies - Medications Allergies/Adverse Reactions: Allergies No Known Allergies Allergy (Verified 03/12/19 12:23) Home Medications: Home Medications Medication Instructions Recorded Confirmed Last Taken Type Insulin NPH/Regular [NovoLIN 70/30] 5 unit SUB-Q BIDDIAB #10 ml 06/04/19 07/26/19 Unknown Rx Ergocalciferol(Vitamin D2)(Nf) 800 unit PO DAILY 07/06/19 07/26/19 Unknown History [Vitamin D (Nf)] cloNIDine [Catapres] 0.2 mg PO BID 07/06/19 07/26/19 Unknown History Lactulose [Cephulac] 20 gm PO BID 30 Days 07/14/19 07/26/19 Unknown Rx Pantoprazole [Protonix TAB] 40 mg PO QDAY #30 tablet 07/14/19 07/26/19 Unknown Rx oxyCODONE ER [oxyCONTIN ER] 10 mg PO Q12HR PRN #10 tablet 07/15/19 07/26/19 Unknown Rx Active Medications: Generic Name Dose Route Start Last Admin Trade Name Gumeq PRN Reason Stop Dose Admin Acetaminophen 650 mg 07/26/19 19:25 Tylenol PO Q4H PRN Pain MILD(1-3)/Fever >100.5/[place] Albuterol 2.5 mg 07/26/19 19:25 Proventil IH Q4HRT PRN Shortness Of Breath Cholecalciferol 800 unit 07/27/19 10:00 07/27/19 12:44 Vitamin D3 PO 800 unit DAILY [facility] Administration Dextrose 50 ml 07/27/19 10:27 D50w (25gm) Syringe IV PRN PRN Hypoglycemia Diphenhydramine HCl 25 mg 07/27/19 10:25 Benadryl PO Q8H PRN Itching Sodium Chloride 100 mls @ 999 mls/hr 07/27/19 12:01 Nacl 0.9% IV AMBER PRN Hypotension Insulin Human Lispro 0 unit 07/27/19 11:30 07/28/19 08:34 Humalog SUB-Q 2 unit ACHS [facility] Administration Protocol Lactulose 20 gm 07/26/19 22:00 07/28/19 09:55 Cephulac PO Not Given BID [facility] Morphine Sulfate 2 mg 07/27/19 10:25 Morphine IV Q4H PRN Pain , Severe (7-10) Ondansetron HCl 4 mg 07/26/19 19:25 Zofran IV Q8H PRN Nausea And Vomiting Oxycodone HCl 10 mg 07/27/19 10:37 07/28/19 08:35 Oxycontin PO 10 mg Q12HR PRN Administration Pain, Moderate (4-6) Pantoprazole Sodium 40 mg 07/27/19 10:00 07/28/19 09:56 Protonix PO 40 mg QDAY [facility] Administration Sodium Chloride 10 ml 07/26/19 22:00 07/28/19 09:56 Sodium Chloride Flush Syringe 10 Ml IV 10 ml BID [facility] Administration Sodium Chloride 10 ml 07/26/19 19:25 Sodium Chloride Flush Syringe 10 Ml IV PRN PRN LINE FLUSH
[2019-07-28] MEDS: CHOLECALCIFEROL (VIT D3) 400 UNIT TAB PO SCH (10:37)
[2019-07-28] MEDS ORDERED: MIDODRINE 2.5 MG TAB PO PRN (12:47)
--- NOTE | 2019-07-28 13:30 | Progress Note ---
Assessment and Plan Assessment and plan: Patient is a 44 yo woman with ESRD on HD (M,W,F), HTN, DM, CHF, Nicotine Dependence and left leg Calichylaxis undergoing Hyperbariac O2 under Dr. Cheko Michelle who presented to [facility] ED with AMS/confusion and subsequently lose of consciousness. EMS notified and upon arrival, the patient was found to be in distress and brief CPR done prior to EMS. She was found to have ESRD, Dialysis Disequilibrium Syndrome and SIRS. Pt admitted to medical floor and initiated on Pneumonia protocol for HCAP. Nephrology consulted in ED. Pt denies fever, chills, CP, Palpitations, NVD, Trauma, prolonged travel/immobility, hemoptysis, unilateral leg swelling, or recent ill contacts. Prior admission on 07/06/19 reviewed. All listed medication reconciled at time of admission. ESRD needing Hemodialysis, as pCXR shows fluid overload: Nephrology consulted, needs HD SIRS without organ dysfunction: ID consulted, input noted Ruled out Pneumonia: HCAP Protocol: stop IV antibiotic therapy, supplemental oxygen, nebulizer therapy, chest x ray, pulse oximetry, Diabetes Mellitus type 2: ADA diet, insulin therapy, accu check, hypoglycemia protocol. HTN (hypertension): Monitor BP q shift, continue medical management. DVT prophylaxis: SCD to BLE while in bed, supportive care, Chronic bilateral leg wounds - unclear etiology presently. calciphylaxis vs pyoderma gangrenosum vs other: Continue wound care from Dr. 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 Negrete will be able to follow up with Dr. Michelle in [facility] Wound care. I spoke with Dr. Michelle and she can come to wound care tomorrow if discharged today. History Interval history: Patient was seen and examined. Follow-up on current diagnosis of ESRD. No overnight events reported to me. Patient denies any chest pain, shortness breath, nausea/vomiting or severe headaches. Imaging, nursing note, chart, labs and old chart reviewed. Discussed with patient with mother at bedside Hospitalist Physical - Physical exam Narrative exam: Gen: bmi 50.7 NAD, Awake, Alert, Orientated HEENT: NCAT, EOMI, PERRL, OP Clear Neck: supple, no adenopathy, no thyromegaly, no JVD CVS/Heart: RRR, normal S1S2, pulses present bilaterally Chest/Lungs: CTA B, Symmetrical chest expansion, good air entry bilaterally GI/Abdomen: soft, NTND, good bowel sounds, no guarding or rebound /Bladder: no suprapubic tenderness, no CVA or paraspinal tenderness Extermity/Skin: left leg looks like PG to me, diffuse scaly plaque everywhere MSK: FROM x 4 Neuro: CN 2-12 grossly intact, no new focal deficits Psych: calm - Constitutional Vitals: Temp Pulse Resp BP Pulse Ox 98.6 F 103 H 16 105/59 100 07/28/19 05:06 07/28/19 05:06 07/28/19 05:06 07/28/19 05:06 07/28/19 09:47 General appearance: Present: obese. Absent: mild distress Results - Labs CBC & Chem 7: 07/26/19 16:26 07/27/19 07:07 Labs: Laboratory Last Values WBC 16.0 K/mm3 (4.5-11.0) H 07/26/19 16:26 RBC 2.91 M/mm3 (3.65-5.03) L 07/26/19 16:26 Hgb 9.0 gm/dl (10.1-14.3) L 07/26/19 16:26 Hct 28.2 % (30.3-42.9) L 07/26/19 16:26 MCV 97 fl (79-97) 07/26/19 16:26 MCH 31 pg (28-32) 07/26/19 16:26 MCHC 32 % (30-34) 07/26/19 16:26 RDW 20.4 % (13.2-15.2) H 07/26/19 16:26 Plt Count 226 K/mm3 (140-440) 07/26/19 16:26 Lymph % (Auto) 7.1 % (13.4-35.0) L 07/26/19 16:26 Ogle % (Auto) 5.8 % (0.0-7.3) 07/26/19 16:26 Eos % (Auto) 14.0 % (0.0-4.3) H 07/26/19 16:26 Baso % (Auto) 0.6 % (0.0-1.8) 07/26/19 16:26 Lymph # 1.1 K/mm3 (1.2-5.4) L 07/26/19 16:26 Ogle # 0.9 K/mm3 (0.0-0.8) H 07/26/19 16:26 Eos # 2.2 K/mm3 (0.0-0.4) H 07/26/19 16:26 Baso # 0.1 K/mm3 (0.0-0.1) 07/26/19 16:26 Seg Neutrophils % 72.5 % (40.0-70.0) H 07/26/19 16:26 Seg Neutrophils # 11.6 K/mm3 (1.8-7.7) H 07/26/19 16:26 PT 18.5 Sec. (12.2-14.9) H 07/26/19 16:26 INR 1.58 (0.87-1.13) H 07/26/19 16:26 APTT 29.7 Sec. (24.2-36.6) 07/26/19 16:26 Sodium 135 mmol/L (137-145) L 07/27/19 07:07 Potassium 3.5 mmol/L (3.6-5.0) L 07/27/19 07:07 Chloride 94.8 mmol/L (98-107) L 07/27/19 07:07 Carbon Dioxide 23 mmol/L (22-30) 07/27/19 07:07 Anion Gap 21 mmol/L 07/27/19 07:07 BUN 34 mg/dL (7-17) H 07/27/19 07:07 Creatinine 4.9 mg/dL (0.7-1.2) H 07/27/19 07:07 Estimated GFR 12 ml/min 07/27/19 07:07 BUN/Creatinine Ratio 7 % 07/27/19 07:07 Glucose 218 mg/dL (65-100) H 07/27/19 07:07 POC Glucose 168 (70-105) H 07/28/19 11:30 Lactic Acid 2.60 mmol/L (0.7-2.0) H* 07/27/19 07:13 Calcium 8.3 mg/dL (8.4-10.2) L 07/27/19 07:07 Magnesium 2.00 mg/dL (1.7-2.3) 07/26/19 16:26 Total Bilirubin 3.10 mg/dL (0.1-1.2) H 07/27/19 07:07 AST 32 units/L (5-40) 07/27/19 07:07 ALT 6 units/L (7-56) L 07/27/19 07:07 Alkaline Phosphatase 209 units/L (35-129) H 07/27/19 07:07 Troponin T 0.163 ng/mL (0.00-0.029) H* 07/26/19 19:40 Total Protein 7.5 g/dL (6.3-8.2) 07/27/19 07:07 Albumin 2.6 g/dL (3.9-5) L 07/27/19 07:07 Albumin/Globulin Ratio 0.5 % 07/27/19 07:07 Triglycerides 99 mg/dL (2-149) 07/26/19 16:26 Cholesterol 120 mg/dL (50-199) 07/26/19 16:26 LDL Cholesterol Direct 74 mg/dL (50-130) 07/26/19 16:26 HDL Cholesterol 28 mg/dL (40-59) L 07/26/19 16:26 Cholesterol/HDL Ratio 4.28 % 07/26/19 16:26 Active Medications - Current Medications Current Medications: Generic Name Dose Route Start Last Admin Trade Name Freq PRN Reason Stop Dose Admin Acetaminophen 650 mg 07/26/19 19:25 Tylenol PO Q4H PRN Pain MILD(1-3)/Fever >100.5/[place] Albuterol 2.5 mg 07/26/19 19:25 Proventil IH Q4HRT PRN Shortness Of Breath Cholecalciferol 800 unit 07/27/19 10:00 07/28/19 10:37 Vitamin D3 PO 800 unit DAILY WALT Administration Dextrose 50 ml 07/27/19 10:27 D50w (25gm) Syringe IV PRN PRN Hypoglycemia Diphenhydramine HCl 25 mg 07/27/19 10:25 Benadryl PO Q8H PRN Itching Sodium Chloride 100 mls @ 999 mls/hr 07/27/19 12:01 Nacl 0.9% IV AMBER PRN Hypotension Insulin Human Lispro 0 unit 07/27/19 11:30 07/28/19 12:30 Humalog SUB-Q 2 unit ACHS WALT Administration Protocol Lactulose 20 gm 07/26/19 22:00 07/28/19 09:55 Cephulac PO Not Given BID WALT Midodrine 5 mg 07/28/19 12:47 Proamatine PO AMBER PRN hemodialysis Morphine Sulfate 2 mg 07/27/19 10:25 Morphine IV Q4H PRN Pain , Severe (7-10) Ondansetron HCl 4 mg 07/26/19 19:25 Zofran IV Q8H PRN Nausea And Vomiting Oxycodone HCl 10 mg 07/27/19 10:37 07/28/19 08:35 Oxycontin PO 10 mg Q12HR PRN Administration Pain, Moderate (4-6) Pantoprazole Sodium 40 mg 07/27/19 10:00 07/28/19 09:56 Protonix PO 40 mg QDAY WALT Administration Sodium Chloride 10 ml 07/26/19 22:00 07/28/19 09:56 Sodium Chloride Flush Syringe 10 Ml IV 10 ml BID WALT Administration Sodium Chloride 10 ml 07/26/19 19:25 Sodium Chloride Flush Syringe 10 Ml IV PRN PRN LINE FLUSH
--- NOTE | 2019-07-28 13:40 | Discharge Summary ---
Providers - Providers Date of Admission: 07/26/19 19:25 Date of discharge: 07/28/19 Attending physician: KRIS GONZALEZ 07/26/19 19:31 Consult to Physician [CONS] Routine Comment: Consulting Provider: RANDY MCKEON Physician Instructions: Reason For Exam: esrd 07/27/19 08:29 Consult to Wound/ET Nurse [CONS] Routine Reason For Exam: wound eval 07/27/19 10:28 Physical Therapy Evaluation and Treat [CONS] Routine Comment: Reason For Exam: gait evaluation/ambulatory dysfunction 07/27/19 11:58 Consult to Physician [CONS] Routine Comment: Consulting Provider: EZRA VALENZUELA Physician Instructions: Reason For Exam: wound infection Primary care physician: DBA DEVELOPER Hospitalization Condition: Stable Hospital course: Patient is a 44 yo woman with ESRD on HD (M,W,F), HTN, DM, CHF, Nicotine Dependence and left leg Calichylaxis undergoing Hyperbariac O2 under Dr. Albertina Sosa who presented to [facility] ED with AMS/confusion and subsequently lose of consciousness. EMS notified and upon arrival, the patient was found to be in distress and brief CPR done prior to EMS. She was found to have ESRD, Dialysis Disequilibrium Syndrome and SIRS. Pt admitted to medical floor and initiated on Pneumonia protocol for HCAP. Nephrology consulted in ED. Pt denies fever, chills, CP, Palpitations, NVD, Trauma, prolonged travel/immobility, hemoptysis, unilateral leg swelling, or recent ill contacts. Prior admission on 07/06/19 reviewed. All listed medication reconciled at time of admission. Discharge Diagnoses: ESRD needing Hemodialysis, as pCXR shows fluid overload: Nephrology consulted, needs HD SIRS without organ dysfunction: ID consulted, input noted Ruled out Pneumonia: HCAP Protocol: stop IV antibiotic therapy, supplemental oxygen, nebulizer therapy, chest x ray, pulse oximetry, Diabetes Mellitus type 2: ADA diet, insulin therapy, accu check, hypoglycemia protocol. HTN (hypertension): Monitor BP q shift, continue medical management. DVT prophylaxis: SCD to BLE while in bed, supportive care, Chronic bilateral leg wounds - unclear etiology presently. calciphylaxis vs pyoderma gangrenosum vs other: Continue wound care from Dr. 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 Valenzuela will be able to follow up with Dr. Sosa in [facility] Wound care. I spoke with Dr. Sosa and she can come to wound care tomorrow if discharged today. Disposition: DC-01 TO HOME OR SELFCARE Time spent for discharge: 34 minutes Core Measure Documentation - Palliative Care Palliative Care/ Comfort Measures: Not Applicable - Core Measures Any of the following diagnoses?: none - VTE Discharge Requirements Deep Vein Thrombosis/Pulmonary Embolism Present on Admission: No Has pt received <5 days of overlap therapy or INR<2.0: No Anticoagulant overlap therapy prescribed at discharge: No Contraindication No Overlap Therapy order at DC: Not Indicated Exam - Physical Exam Narrative exam: Gen: bmi 50.7 NAD, Awake, Alert, Orientated HEENT: NCAT, EOMI, PERRL, OP Clear Neck: supple, no adenopathy, no thyromegaly, no JVD CVS/Heart: RRR, normal S1S2, pulses present bilaterally Chest/Lungs: CTA B, Symmetrical chest expansion, good air entry bilaterally GI/Abdomen: soft, NTND, good bowel sounds, no guarding or rebound /Bladder: no suprapubic tenderness, no CVA or paraspinal tenderness Extermity/Skin: left leg looks like PG to me, diffuse scaly plaque everywhere MSK: FROM x 4 Neuro: CN 2-12 grossly intact, no new focal deficits Psych: calm - Constitutional Vitals: Temp Pulse Resp BP Pulse Ox 98.6 F 103 H 16 105/59 100 07/28/19 05:06 07/28/19 05:06 07/28/19 05:06 07/28/19 05:06 07/28/19 09:47 Plan Activity: other (no strenous activity) Diet: renal Additional Instructions: See Dr. Sosa at Wound care center tomorrow to review Wound Culture results. Follow up with: PRIMARY CAREMD [Primary Care Provider] - 3-5 Days ALBERTINA SOSA MD [Staff Physician] - 7 Days
[2019-07-28] MEDS ORDERED: SODIUM CHLORIDE*PRIMING MACHINE ONLY FOR DIALYSIS MC ONE (16:17)
[2019-07-28 18:00] VITALS: BP 121/72
== END 2019-07-28 18:50 | disposition home health service (06) | DRG 640 ==
LOC: ED 14:03 → 3A 19:25
PROVIDERS: ADMIT Internal Medicine; ATTEND Internal Medicine
PROC: 5A1D70Z Performance of Urinary Filtration, Intermittent, Less than 6 Hours Per Day (ICD-10-PCS; principal; 2019-07-27)
PROC: 5A1D70Z Performance of Urinary Filtration, Intermittent, Less than 6 Hours Per Day (ICD-10-PCS; 2019-07-28)
DX: E87.70 Fluid overload, unspecified (principal); L89.303 Pressure ulcer of unspecified buttock, stage 3; N18.6 End stage renal disease; R53.2 Functional quadriplegia; R65.10 Systemic inflammatory response syndrome (SIRS) of non-infectious origin without acute organ dysfunction; Z68.43 Body mass index [BMI] 50.0-59.9, adult; L88 Pyoderma gangrenosum; I13.2 Hypertensive heart and chronic kidney disease with heart failure and with stage 5 chronic kidney disease, or end stage renal disease; E87.1 Hypo-osmolality and hyponatremia; I50.9 Heart failure, unspecified; F12.90 Cannabis use, unspecified, uncomplicated; D63.1 Anemia in chronic kidney disease; F17.200 Nicotine dependence, unspecified, uncomplicated; E11.22 Type 2 diabetes mellitus with diabetic chronic kidney disease; E66.01 Morbid (severe) obesity due to excess calories; L94.2 Calcinosis cutis; E83.59 Other disorders of calcium metabolism; R55 Syncope and collapse; Z99.2 Dependence on renal dialysis; Z91.19 Patient's noncompliance with other medical treatment and regimen; Z82.49 Family history of ischemic heart disease and other diseases of the circulatory system; Z79.4 Long term (current) use of insulin
CPT/HCPCS: 36415; 70450; 71045; 80053; 80061; 82140; 82962; 83735; 84484; 85025; 85610; 85730; 87040; 87076; 87116; 87186; 93005; 93010; 94760; 96365; 96368; 96375; 99183; G0378; G0277; J0692; J1815; J3370; J7030; J7040

== ENCOUNTER 2019-07-30 08:35 | Outpatient (CLI) | payer MEDICARE | END 2019-07-30 08:36 | disposition home or self-care (01) | LOC: WOUND 08:35 | PROVIDERS: ATTEND Surgery | DX: E11.622 Type 2 diabetes mellitus with other skin ulcer (principal); L97.212 Non-pressure chronic ulcer of right calf with fat layer exposed; L97.222 Non-pressure chronic ulcer of left calf with fat layer exposed; E11.22 Type 2 diabetes mellitus with diabetic chronic kidney disease; I13.2 Hypertensive heart and chronic kidney disease with heart failure and with stage 5 chronic kidney disease, or end stage renal disease; I50.9 Heart failure, unspecified; N18.6 End stage renal disease; I25.10 Atherosclerotic heart disease of native coronary artery without angina pectoris; J44.9 Chronic obstructive pulmonary disease, unspecified; Z87.891 Personal history of nicotine dependence | CPT/HCPCS: 82962 ==

== ENCOUNTER 2019-08-02 08:02 | Outpatient (CLI) | payer MEDICARE | END 2019-08-02 08:03 | disposition home or self-care (01) | LOC: WOUND 08:02 | PROVIDERS: ATTEND Surgery | DX: E11.622 Type 2 diabetes mellitus with other skin ulcer (principal); L97.212 Non-pressure chronic ulcer of right calf with fat layer exposed; L97.222 Non-pressure chronic ulcer of left calf with fat layer exposed; E11.22 Type 2 diabetes mellitus with diabetic chronic kidney disease; I13.2 Hypertensive heart and chronic kidney disease with heart failure and with stage 5 chronic kidney disease, or end stage renal disease; N18.6 End stage renal disease; I25.10 Atherosclerotic heart disease of native coronary artery without angina pectoris; J44.9 Chronic obstructive pulmonary disease, unspecified; Z87.891 Personal history of nicotine dependence | CPT/HCPCS: 82962; 99183; G0277 ==

== ENCOUNTER 2019-08-05 08:01 | Outpatient (CLI) | payer MEDICARE ==
[2019-08-05] MEDS ORDERED: AD OINTMENT TP PRN (09:00)
[2019-08-05] MEDS ORDERED: SILVER NITRATE TP ONE (09:00)
[2019-08-05] MEDS ORDERED: XYLOCAINE TOPICAL 4% TP ONE (09:00)
== END 2019-08-05 08:02 | disposition home or self-care (01) ==
LOC: WOUND 08:01
PROVIDERS: ATTEND Surgery
DX: E11.622 Type 2 diabetes mellitus with other skin ulcer (principal); L97.212 Non-pressure chronic ulcer of right calf with fat layer exposed; L97.222 Non-pressure chronic ulcer of left calf with fat layer exposed; E11.22 Type 2 diabetes mellitus with diabetic chronic kidney disease; I13.2 Hypertensive heart and chronic kidney disease with heart failure and with stage 5 chronic kidney disease, or end stage renal disease; N18.6 End stage renal disease; I25.10 Atherosclerotic heart disease of native coronary artery without angina pectoris; J44.9 Chronic obstructive pulmonary disease, unspecified; Z87.891 Personal history of nicotine dependence
CPT/HCPCS: A6250

== ENCOUNTER 2019-08-13 12:31 | Observation (INO) | payer MEDICARE ==
--- NOTE | 2019-08-13 14:19 | Emergency Department Report ---
ED General Adult HPI - General Chief complaint: Weakness Stated complaint: MISSED DIALYSIS Time Seen by Provider: 08/13/19 13:24 Source: EMS Mode of arrival: Stretcher Limitations: Physical Limitation - History of Present Illness Initial comments: 44-year-old -Chinese female patient with extensive medical history looting ESRD on dialysis complains of global episode on Friday during dialysis and "not feeling right" for the past week. Patient unsure of a long she was unconscious and states she did not go to the hospital after the syncopal epi sode. Patient follows with Dr. Francis, nephrology. He gets dialysis MWF, but missed Friday and Friday. She denies any headaches, vision changes, chest pain, shortness of breath, abdominal pain, chills, numbness or tingling, or weakness. Patient just continues to state "I just feel like something is off". -: Gradual Severity scale (0 -10): 5 - Related Data Home Medications Medication Instructions Recorded Confirmed Last Taken Ergocalciferol(Vitamin D2)(Nf) 800 unit PO DAILY 07/06/19 08/13/19 1 Day Ago [Vitamin D (Nf)] ~08/12/19 cloNIDine [Catapres] 0.2 mg PO BID 07/06/19 08/13/19 08/13/19 Lactulose [Cephulac] 20 gm PO BID 08/13/19 08/13/19 1 Week Ago ~08/06/19 Previous Rx's Medication Instructions Recorded Last Taken Type Insulin NPH/Regular [NovoLIN 70/30] 5 unit SUB-Q BIDDIAB #10 ml 06/04/19 1 Day Ago Rx ~08/12/19 Pantoprazole [Protonix TAB] 40 mg PO QDAY #30 tablet 07/14/19 08/13/19 Rx oxyCODONE ER [oxyCONTIN ER] 10 mg PO Q12HR PRN #10 tablet 07/15/19 1 Day Ago Rx ~08/12/19 oxyCODONE ER [oxyCONTIN ER] 10 mg PO Q12HR PRN #30 tablet 07/28/19 08/12/19 Rx Allergies Allergy/AdvReac Type Severity Reaction Status Date / Time No Known Allergies Allergy Verified 03/12/19 12:23 ED Review of Systems ROS: Stated complaint: MISSED DIALYSIS Other details as noted in HPI ED Past Medical Hx - Past Medical History Hx Hypertension: Yes Hx Heart Attack/AMI: No Hx Congestive Heart Failure: Yes Hx Diabetes: Yes Hx Deep Vein Thrombosis: No Hx Pulmonary Embolism: No Hx Liver Disease: Yes Hx Renal Disease: Yes Hx Asthma: No Hx COPD: Yes Hx Tuberculosis: No Hx HIV: No Additional medical history: PVD, and cellulitis - Surgical History Hx Coronary Stent: No Hx Pacemaker: No Hx Internal Defibrillator: No Additional Surgical History: Perm cath, - Social History Smoking Status: Never Smoker Substance Use Type: Marijuana - Medications Home Medications: Home Medications Medication Instructions Recorded Confirmed Last Taken Type Insulin NPH/Regular [NovoLIN 70/30] 5 unit SUB-Q BIDDIAB #10 ml 06/04/19 08/13/19 1 Day Ago Rx ~08/12/19 Ergocalciferol(Vitamin D2)(Nf) 800 unit PO DAILY 07/06/19 08/13/19 1 Day Ago History [Vitamin D (Nf)] ~08/12/19 cloNIDine [Catapres] 0.2 mg PO BID 07/06/19 08/13/19 08/13/19 History Pantoprazole [Protonix TAB] 40 mg PO QDAY #30 tablet 07/14/19 08/13/19 08/13/19 Rx oxyCODONE ER [oxyCONTIN ER] 10 mg PO Q12HR PRN #10 tablet 07/15/19 08/13/19 1 Day Ago Rx ~08/12/19 oxyCODONE ER [oxyCONTIN ER] 10 mg PO Q12HR PRN #30 tablet 07/28/19 08/13/19 08/12/19 Rx Lactulose [Cephulac] 20 gm PO BID 08/13/19 08/13/19 1 Week Ago History ~08/06/19 ED Physical Exam - General Limitations: Physical Limitation ED Course Vital Signs 08/13/19 08/13/19 08/13/19 12:36 12:46 12:50 Temperature 98.1 F Pulse Rate 96 H Respiratory 20 14 20 Rate Blood Pressure 135/75 Blood Pressure [Left] O2 Sat by Pulse 99 98 Oximetry 08/13/19 08/13/19 08/13/19 12:54 13:00 13:16 Temperature 98.1 F Pulse Rate 98 H 123 H Respiratory 20 20 Rate Blood Pressure 122/83 122/83 Blood Pressure 125/75 [Left] O2 Sat by Pulse 100 96 97 Oximetry 08/13/19 08/13/19 08/13/19 13:30 13:46 14:00 Temperature Pulse Rate 116 H Respiratory 24 Rate Blood Pressure 122/83 122/83 134/86 Blood Pressure [Left] O2 Sat by Pulse 97 98 96 Oximetry 08/13/19 08/13/19 08/13/19 14:16 14:30 15:08 Temperature Pulse Rate 117 H 117 H 116 H Respiratory 20 17 17 Rate Blood Pressure 134/86 134/86 134/86 Blood Pressure [Left] O2 Sat by Pulse 100 99 100 Oximetry 08/13/19 08/13/19 08/13/19 15:16 15:30 15:46 Temperature Pulse Rate 117 H 118 H 117 H Respiratory 24 23 24 Rate Blood Pressure 134/86 134/86 134/86 Blood Pressure [Left] O2 Sat by Pulse 97 97 97 Oximetry 08/13/19 08/13/19 16:00 16:16 Temperature Pulse Rate 116 H 115 H Respiratory 24 23 Rate Blood Pressure 109/74 109/74 Blood Pressure [Left] O2 Sat by Pulse 95 96 Oximetry ED Medical Decision Making - Lab Data Result diagrams: 08/13/19 14:33 08/13/19 14:33 Lab Results 08/13/19 08/13/19 08/13/19 Range/Units 12:53 14:33 14:33 WBC 9.2 (4.5-11.0) K/mm3 RBC 3.25 L (3.65-5.03) M/mm3 Hgb 9.5 L (10.1-14.3) gm/dl Hct 30.8 (30.3-42.9) % MCV 95 (79-97) fl MCH 29 (28-32) pg MCHC 31 (30-34) % RDW 18.7 H (13.2-15.2) % Plt Count 379 (140-440) K/mm3 Lymph % (Auto) 15.8 (13.4-35.0) % Emanuel % (Auto) 10.0 H (0.0-7.3) % Eos % (Auto) 9.4 H (0.0-4.3) % Baso % (Auto) 0.8 (0.0-1.8) % Lymph # 1.5 (1.2-5.4) K/mm3 Emanuel # 0.9 H (0.0-0.8) K/mm3 Eos # 0.9 H (0.0-0.4) K/mm3 Baso # 0.1 (0.0-0.1) K/mm3 Seg Neutrophils % 64.0 (40.0-70.0) % Seg Neutrophils # 5.9 (1.8-7.7) K/mm3 Sodium 136 L (137-145) mmol/L Potassium 5.8 H (3.6-5.0) mmol/L Chloride 97.5 L (98-107) mmol/L Carbon Dioxide 19 L (22-30) mmol/L Anion Gap 25 mmol/L BUN 57 H (7-17) mg/dL Creatinine 7.9 H (0.7-1.2) mg/dL Estimated GFR 7 ml/min BUN/Creatinine Ratio 7 % Glucose 195 H (65-100) mg/dL POC Glucose 233 H (70-105) Calcium 8.9 (8.4-10.2) mg/dL Total Bilirubin 1.90 H (0.1-1.2) mg/dL AST 43 H (5-40) units/L ALT 13 (7-56) units/L Alkaline Phosphatase 194 H (35-129) units/L Troponin T 0.158 H* (0.00-0.029) ng/mL Total Protein 8.8 H (6.3-8.2) g/dL Albumin 2.5 L (3.9-5) g/dL Albumin/Globulin Ratio 0.4 % Triglycerides 102 (2-149) mg/dL Cholesterol 113 (50-199) mg/dL LDL Cholesterol Direct 63 (50-130) mg/dL HDL Cholesterol 35 L (40-59) mg/dL Cholesterol/HDL Ratio 3.22 % HCG, Qual (Negative) 08/13/19 Range/Units 17:46 WBC (4.5-11.0) K/mm3 RBC (3.65-5.03) M/mm3 Hgb (10.1-14.3) gm/dl Hct (30.3-42.9) % MCV (79-97) fl MCH (28-32) pg MCHC (30-34) % RDW (13.2-15.2) % Plt Count (140-440) K/mm3 Lymph % (Auto) (13.4-35.0) % Emanuel % (Auto) (0.0-7.3) % Eos % (Auto) (0.0-4.3) % Baso % (Auto) (0.0-1.8) % Lymph # (1.2-5.4) K/mm3 Emanuel # (0.0-0.8) K/mm3 Eos # (0.0-0.4) K/mm3 Baso # (0.0-0.1) K/mm3 Seg Neutrophils % (40.0-70.0) % Seg Neutrophils # (1.8-7.7) K/mm3 Sodium (137-145) mmol/L Potassium (3.6-5.0) mmol/L Chloride (98-107) mmol/L Carbon Dioxide (22-30) mmol/L Anion Gap mmol/L BUN (7-17) mg/dL Creatinine (0.7-1.2) mg/dL Estimated GFR ml/min BUN/Creatinine Ratio % Glucose (65-100) mg/dL POC Glucose (70-105) Calcium (8.4-10.2) mg/dL Total Bilirubin (0.1-1.2) mg/dL AST (5-40) units/L ALT (7-56) units/L Alkaline Phosphatase (35-129) units/L Troponin T (0.00-0.029) ng/mL Total Protein (6.3-8.2) g/dL Albumin (3.9-5) g/dL Albumin/Globulin Ratio % Triglycerides (2-149) mg/dL Cholesterol (50-199) mg/dL LDL Cholesterol Direct (50-130) mg/dL HDL Cholesterol (40-59) mg/dL Cholesterol/HDL Ratio % HCG, Qual Negative (Negative) - EKG Data When compared to previous EKG there are: previous EKG unavailable - Radiology Data Radiology results: report reviewed CT head/brain wo con INDICATION: syncope. TECHNIQUE: Routine CT head without contrast. All CT scans at this location are performed using CT dose reduction for ALARA by means of automated exposure control. COMPARISON: Head CT dated 07/26/2019. FINDINGS: BRAIN / INTRACRANIAL CONTENTS: No acute hemorrhage, mass effect, midline shift, or hydrocephalus. No appreciable acute large territorial or lacunar infarct. No chronic infarct or focal atrophy. Normal brain volume and ventricular/sulcal size for age. ORBITS: No significant abnormality of visualized orbits. SINUSES / MASTOIDS: There is mild mucosal thickening in the left posterior ethmoid air cells. ADDITIONAL FINDINGS: None. IMPRESSION: 1. No acute intracranial abnormality. No adverse change from the prior exam. - Medical Decision Making Patient with extensive medical history including ESRD on dialysis here for syncopal episode on Friday during dialysis. She states she did not go to dialysis on Friday and when she tried to go today and they told her to come to the ER due to her syncopal episode on Friday. Patient denies any specific complaints just says she doesn't feel right. Denies chest pain, shortness of breath, headache, vision changes, dizziness or any pain. Aloes with Dr. Barker, nephrology. Stroke with Dr. Panchal, nephrology, states that he will dialyze patient here in the hospital today and reevaluate. Troponin elevated today, however troponin noted to be chronically elevated. WBC is WNL patient afebrile. Calcium at 5.8. We will admit patient for dialysis. Critical care attestation.: If time is entered above; I have spent that time in minutes in the direct care of this critically ill patient, excluding procedure time. ED Disposition Clinical Impression: Missed dialysis, Episode of syncope Disposition: OP ADMIT IP TO THIS HOSP Is pt being admited?: Yes Condition: Stable Instructions: Syncope (ED) Referrals: PRIMARY CARE, [Referring] - 3-5 Days
[2019-08-13 14:36] LABS: Basophils # (Auto) 0.1 K/mm3 (0.0-0.1); Basophils % (Auto) 0.8 % (0.0-1.8); Eosinophils # (Auto) 0.9 K/mm3 (0.0-0.4); Eosinophils % (Auto) 9.4 % (0.0-4.3); Hematocrit 30.8 % (30.3-42.9); Hemoglobin 9.5 gm/dl (10.1-14.3); Lymphocytes # (Auto) 1.5 K/mm3 (1.2-5.4); Lymphocytes % (Auto) 15.8 % (13.4-35.0); Mean Corpuscular HGB Conc 31 % (30-34); Mean Corpuscular Volume 95 fl (79-97); Monocytes # (Auto) 0.9 K/mm3 (0.0-0.8); Platelet Count 379 K/mm3 (140-440); Red Blood Count 3.25 M/mm3 (3.65-5.03); Red Cell Distribution Width 18.7 % (13.2-15.2)
[2019-08-13 15:01] LABS: Albumin 2.5 g/dL (3.9-5); Calcium 8.9 mg/dL (8.4-10.2)
--- NOTE | 2019-08-13 15:28 | Cat Scan Report ---
CT head/brain wo con INDICATION: syncope. TECHNIQUE: Routine CT head without contrast. All CT scans at this location are performed using CT dos e reduction for ALARA by means of automated exposure control. COMPARISON: Head CT dated 07/26/2019. FINDINGS: BRAIN / INTRACRANIAL CONTENTS: No acute hemorrhage, mass effect, midline shift, or hydrocephalus. No appreciable acute large territorial or lacunar infarct. No chronic infarct or focal atrophy. Normal b rain volume and ventricular/sulcal size for age. ORBITS: No significant abnormality of visualized orbits. SINUSES / MASTOIDS: There is mild mucosal thickening in the left posterior ethmoid air cells. ADDITIONAL FINDINGS: None. IMPRESSION: 1. No acute intracranial abnormality. No adverse change from the prior exam. Signer Name: Esteban Mejía MD Signed: 08/13/2019 3:24 PM Workstation Name: [id number]
[2019-08-13 16:04] LABS: Chol/HDL Ratio 3.22 %
[2019-08-13] MEDS ORDERED: SODIUM CHLORIDE 0.9% 100 ML IV PRN (16:33)
[2019-08-13] MEDS ORDERED: oxyCODONE /ACETAMINOPHEN 5-325MG TAB PO ONE (17:58)
--- NOTE | 2019-08-13 18:49 | XRay Report ---
CHEST 1 VIEW 1828 INDICATION / CLINICAL INFORMATION: syncope. COMPARISON: 07/26/2019 FINDINGS: SUPPORT DEVICES: Stable HEART / MEDIASTINUM: Stable LUNGS / PLEURA: No significant pulmonary or pleural abnormality. No pneumothorax. ADDITIONAL FINDINGS: No significant additional findings. IMPRESSION: No significant changes Signer Name: Frederick Tsang MD Signed: 08/13/2019 6:45 PM Workstation Name: [id number]
[2019-08-13 20:08] LABS: Hepatitis C Virus Antibody Non-Reactive (NonReactive)
[2019-08-13 20:09] LABS: Hepatitis B Surface Antigen Non-Reactive (Negative)
[2019-08-13] MEDS ORDERED: oxyCODONE ER 10 MG TAB PO PRN (21:12)
--- NOTE | 2019-08-13 21:38 | Progress Note ---
Subjective Date of service: 08/13/19 Objective - Vital Signs Vital signs: Vital Signs - 12hr 08/13/19 08/13/19 08/13/19 12:36 12:46 12:50 Temperature 98.1 F Pulse Rate 96 H Respiratory 20 14 20 Rate Blood Pressure 135/75 Blood Pressure [Left] O2 Sat by Pulse 99 98 Oximetry 08/13/19 08/13/19 08/13/19 12:54 13:00 13:16 Temperature 98.1 F Pulse Rate 98 H 123 H Respiratory 20 20 Rate Blood Pressure 122/83 122/83 Blood Pressure 125/75 [Left] O2 Sat by Pulse 100 96 97 Oximetry 08/13/19 08/13/19 08/13/19 13:30 13:46 14:00 Temperature Pulse Rate 116 H Respiratory 24 Rate Blood Pressure 122/83 122/83 134/86 Blood Pressure [Left] O2 Sat by Pulse 97 98 96 Oximetry 08/13/19 08/13/19 08/13/19 14:16 14:30 15:08 Temperature Pulse Rate 117 H 117 H 116 H Respiratory 20 17 17 Rate Blood Pressure 134/86 134/86 134/86 Blood Pressure [Left] O2 Sat by Pulse 100 99 100 Oximetry 08/13/19 08/13/19 08/13/19 15:16 15:30 15:46 Temperature Pulse Rate 117 H 118 H 117 H Respiratory 24 23 24 Rate Blood Pressure 134/86 134/86 134/86 Blood Pressure [Left] O2 Sat by Pulse 97 97 97 Oximetry 08/13/19 08/13/19 08/13/19 16:00 16:16 16:30 Temperature Pulse Rate 116 H 115 H 115 H Respiratory 24 23 24 Rate Blood Pressure 109/74 109/74 109/74 Blood Pressure [Left] O2 Sat by Pulse 95 96 96 Oximetry 08/13/19 08/13/19 08/13/19 16:45 17:00 17:15 Temperature Pulse Rate 115 H 93 H 115 H Respiratory 23 24 23 Rate Blood Pressure 119/80 119/80 Blood Pressure [Left] O2 Sat by Pulse 96 99 Oximetry 08/13/19 08/13/19 08/13/19 17:31 17:45 18:00 Temperature Pulse Rate 117 H 116 H Respiratory 26 H 21 18 Rate Blood Pressure 119/80 119/80 Blood Pressure [Left] O2 Sat by Pulse 98 100 Oximetry 08/13/19 08/13/19 08/13/19 18:01 18:15 18:31 Temperature Pulse Rate 115 H 115 H 98 H Respiratory 18 12 16 Rate Blood Pressure 129/97 129/97 129/97 Blood Pressure [Left] O2 Sat by Pulse 99 99 100 Oximetry 08/13/19 08/13/19 08/13/19 18:46 19:00 19:15 Temperature 97.9 F Pulse Rate 115 H 118 H 121 H Respiratory 18 Rate Blood Pressure 135/79 118/71 122/68 Blood Pressure [Left] O2 Sat by Pulse Oximetry 08/13/19 08/13/19 08/13/19 19:30 19:45 20:00 Temperature Pulse Rate 122 H 116 H 92 H Respiratory Rate Blood Pressure 117/67 99/62 107/72 Blood Pressure [Left] O2 Sat by Pulse Oximetry 08/13/19 08/13/19 08/13/19 20:15 20:30 20:45 Temperature Pulse Rate 91 H 119 H 130 H Respiratory Rate Blood Pressure 130/80 97/70 106/75 Blood Pressure [Left] O2 Sat by Pulse Oximetry 08/13/19 08/13/19 08/13/19 21:00 21:15 21:30 Temperature Pulse Rate 94 H 124 H 92 H Respiratory Rate Blood Pressure 125/77 132/90 118/82 Blood Pressure [Left] O2 Sat by Pulse Oximetry - Lab 08/13/19 14:33 08/13/19 14:33 Most recent lab results Calcium 8.9 mg/dL (8.4-10.2) 08/13/19 14:33 Medications & Allergies - Medications Allergies/Adverse Reactions: Allergies No Known Allergies Allergy (Verified 03/12/19 12:23) Home Medications: Home Medications Medication Instructions Recorded Confirmed Last Taken Type Ergocalciferol(Vitamin D2)(Nf) 800 unit PO DAILY 07/06/19 08/13/19 1 Day Ago History [Vitamin D (Nf)] ~08/12/19 cloNIDine [Catapres] 0.2 mg PO BID 07/06/19 08/13/19 08/13/19 History Pantoprazole [Protonix TAB] 40 mg PO QDAY #30 tablet 07/14/19 08/13/19 08/13/19 Rx oxyCODONE ER [oxyCONTIN ER] 10 mg PO Q12HR PRN #30 tablet 07/28/19 08/13/19 08/12/19 Rx Insulin NPH/Regular [NovoLIN 70/30] 5 unit SUB-Q BIDDIAB units 08/13/19 Unknown Rx Insulin NPH/Regular [NovoLIN 70/30] 5 unit SUB-Q BIDDIAB #10 ml 08/13/19 Unknown Rx Lactulose [Cephulac] 20 gm PO BID oral.liqd 08/13/19 Unknown Rx Pantoprazole [Protonix TAB] 40 mg PO QDAY tablet 08/13/19 Unknown Rx oxyCODONE ER [oxyCONTIN ER] 10 mg PO Q12HR PRN tablet 08/13/19 Unknown Rx Active Medications: Generic Name Dose Route Start Last Admin Trade Name Freq PRN Reason Stop Dose Admin Clonidine HCl 0.2 mg 08/13/19 22:00 Catapres PO BID WALT Sodium Chloride 100 mls @ 999 mls/hr 08/13/19 16:33 Nacl 0.9% IV AMBER PRN Hypotension Insulin Human Isoph/Insulin Regular 5 unit 08/14/19 08:00 Humulin 70/30 SUB-Q BIDDIAB WALT Insulin Human Lispro 0 unit 08/13/19 22:00 Humalog SUB-Q ACHS WALT Protocol Lactulose 20 gm 08/13/19 22:00 Cephulac PO BID WALT Miscellaneous Medication 800 unit 08/14/19 10:00 Ergocalciferol(Vitamin D2)(Nf) PO DAILY WALT Oxycodone HCl 10 mg 08/13/19 21:12 Oxycontin PO Q12HR PRN Pain , Severe (7-10) Pantoprazole Sodium 40 mg 08/14/19 10:00 Protonix PO QDAY WALT
--- NOTE | 2019-08-13 21:42 | Consultation ---
History of Present Illness - Reason for Consult Consult date: 08/13/19 end stage renal disease - History of Present Illness 44-year-old -Malaysian female patient with history of ESRD on dialysis presents with malaise and loss of consciousness. No specific issues with dialysis, with last HD on Friday08/09/19. However, she did not feel well so missed her next two sessions including today. She denies any headaches, vision changes, chest pain, shortness of breath, abdominal pain, chills, numbness or tingling, or weakness. Patient notes that she feels off although is unsure what it is. Past History Past Medical History: dialysis, ESRD Past Surgical History: No surgical history Social history: no significant social history Family history: no significant family history Medications and Allergies Allergies Allergy/AdvReac Type Severity Reaction Status Date / Time No Known Allergies Allergy Verified 03/12/19 12:23 Home Medications Medication Instructions Recorded Confirmed Last Taken Type Ergocalciferol(Vitamin D2)(Nf) 800 unit PO DAILY 07/06/19 08/13/19 1 Day Ago History [Vitamin D (Nf)] ~08/12/19 cloNIDine [Catapres] 0.2 mg PO BID 07/06/19 08/13/19 08/13/19 History Pantoprazole [Protonix TAB] 40 mg PO QDAY #30 tablet 07/14/19 08/13/19 08/13/19 Rx oxyCODONE ER [oxyCONTIN ER] 10 mg PO Q12HR PRN #30 tablet 07/28/19 08/13/19 08/12/19 Rx Insulin NPH/Regular [NovoLIN 70/30] 5 unit SUB-Q BIDDIAB units 08/13/19 Unknown Rx Insulin NPH/Regular [NovoLIN 70/30] 5 unit SUB-Q BIDDIAB #10 ml 08/13/19 Unknown Rx Lactulose [Cephulac] 20 gm PO BID oral.liqd 08/13/19 Unknown Rx Pantoprazole [Protonix TAB] 40 mg PO QDAY tablet 08/13/19 Unknown Rx oxyCODONE ER [oxyCONTIN ER] 10 mg PO Q12HR PRN tablet 08/13/19 Unknown Rx Active Meds: Active Medications Clonidine HCl (Catapres) 0.2 mg PO BID WALT Sodium Chloride (Nacl 0.9%) 100 mls @ 999 mls/hr IV AMBER PRN PRN Reason: Hypotension Insulin Human Isoph/Insulin Regular (Humulin 70/30) 5 unit SUB-Q BIDDIAB WALT Insulin Human Lispro (Humalog) 0 unit SUB-Q ACHS WALT; Protocol Lactulose (Cephulac) 20 gm PO BID WALT Miscellaneous Medication (Ergocalciferol(Vitamin D2)(Nf)) 800 unit PO DAILY WALT Oxycodone HCl (Oxycontin) 10 mg PO Q12HR PRN PRN Reason: Pain , Severe (7-10) Pantoprazole Sodium (Protonix) 40 mg PO QDAY [facility] Review of Systems Constitutional: fatigue, weakness, malaise, no poor appetite Ears, nose, mouth and throat: no nasal congestion Cardiovascular: no chest pain, no orthopnea, no palpitations, no edema, no lightheadedness Respiratory: no cough, no shortness of breath, no dyspnea on exertion, no congestion Gastrointestinal: no abdominal pain, no nausea, no vomiting, no diarrhea, no constipation Musculoskeletal: no neck stiffness, no low back pain Integumentary: no rash Neurological: syncope, no weakness, no parathesias Psychiatric: no anxiety Exam - Vital Signs Vital signs: Vital Signs Resp 20 08/13/19 12:36 - General Appearance General appearance: well-developed, well-nourished, appears stated age EENT: PERRL, mucous membranes moist Neck: Present: neck supple, trachea midline. Absent: JVD/HJR, Masses Respiratory: Clear to Ascultation Heart: regular, normal heart rate, S1S2, no murmurs Gastrointestinal: Present: normal. Absent: tenderness, distended, masses, guarding Integumentary: no rash, warm and dry Neurologic: no focal deficit, no asterixis Results - Lab Results 08/13/19 14:33 08/13/19 14:33 Most recent lab results Calcium 8.9 mg/dL (8.4-10.2) 08/13/19 14:33 Assessment and Plan This is a 44 year old woman with ESRD who presents with nonspecific symptoms but found to have acidemia, hyperkalemia in setting of missed HD. # ESRD: missed last two sessions. Will dialyze today per MWF schedule and for acute metabolic abnormalities noted. # Hyperkalemia: recheck labs after HD # Metabolic Acidosis: likely in setting of missed HD # Anemia: likely related to CKD. Will provide ESAs if patient remains inpatient with HD # Vague Symptoms: unclear etiology. Will monitor post HD
[2019-08-13] MEDS ORDERED: cloNIDine 0.2 MG TAB PO SCH (22:00)
[2019-08-14] MEDS: LACTULOSE 20 GM/30 ML ORAL LIQD PO SCH ×2 (00:08→10:46)
[2019-08-14] MEDS: INSULIN LISPRO 100 UNIT/ML SUB-Q SCH ×3 (00:56→12:23)
--- NOTE | 2019-08-14 01:49 | Event Note ---
Date: 08/14/19 Pt returned from HD at 2311 with BP 94/48, nurse wanted to serve patient before discharge to see if BP would improve. BP rechecked at 2330 84/60. Pt is symptomatic. Will continue to monitor BP. Discharge in am pending.
--- NOTE | 2019-08-14 05:43 | Event Note ---
Date: 08/13/19 See H/p in reports Hyperkalemia Missed HD for 2 sessions Volume overload sec to missed HD IDDM Hypotension--Hold clonidine Possible discharge in 23 hours if BP stable Bilateral leg ulcers--Calciphylaxis Syncope-one week ago--Had extensive w/u in previous admissions.Syncope sec to Hypotension.D/c Clonidine
[2019-08-14 07:22] LABS: Calcium 8.5 mg/dL (8.4-10.2)
[2019-08-14] MEDS ORDERED: INSULIN NPH/REGULAR 70/30 INJ SUB-Q SCH (08:00)
--- NOTE | 2019-08-14 08:30 | History and Physical Report ---
CHIEF COMPLAINT: Missed hemodialysis for the last 2 sessions. HISTORY OF PRESENT ILLNESS: A 44-year-old woman with a history of end-stage renal disease, hypertension, diabetes, CHF, nicotine dependence and left leg calciphylaxis, undergoing hyperbaric oxygen, missed dialysis for 2 sessions. The patient apparently had a syncopal episode 1 week ago during dialysis. After that, the patient did miss dialysis for 2 sessions on Friday and Friday. The patient wanted to get dialysis today but was sent from the dialysis clinic because she missed 2 dialysis. The patient feels a bit weak. No syncope. The patient had similar syncopal episodes in the past and syncope workup was done extensively. Last discharge was on 07/26/2019. No shortness of breath. The patient has multiple medical problems including hypertension, type 2 diabetes, end-stage renal disease, morbid obesity and calciphylaxis with chronic leg ulcers bilaterally and functional quadriplegia, nonambulatory and bedridden. PAST MEDICAL HISTORY: As mentioned end-stage renal disease, hypertension, type 2 diabetes, morbid obesity, stage 2 and stage 3 buttock sacral pressure ulcers. The patient is following with wound care. PAST SURGICAL HISTORY: Wound care both legs, with hyperbaric oxygen, AV fistula. SOCIAL HISTORY: Smoker. No drugs or alcohol. FAMILY HISTORY: Hypertension. CURRENT MEDICATIONS: On the chart. PHYSICAL EXAMINATION: GENERAL: Young female, morbidly obese. VITAL SIGNS: Blood pressure at the time of admission 126/83, pulse is 73, respirations 23, sats are 97%. HEENT: Unremarkable. Pupils equal and reactive. NECK: Supple. No lymphadenopathy, no thyromegaly. LUNGS: Clear to auscultation and percussion. Good air entry. CARDIOVASCULAR: S1, S2 heard. No gallop, no murmur, no rub. Apical impulse in left fifth intercostal space and midclavicular line. ABDOMEN: Soft and benign. No hepatosplenomegaly. No guarding, no rigidity. Hernial orifices are normal. EXTREMITIES: Good pedal pulses. No pedal edema. CENTRAL NERVOUS SYSTEM: Alert and oriented x 4, nonfocal exam. SKIN: Bilateral leg ulcers and sacral stage 2 to 3 ulcers present, chronic. LABORATORY DATA: Significant for white count of 9200, H and H of 9.5 and 30.8, platelet count is 379,000. Potassium is 5.8. Sodium is 136, chloride is 97.5, bicarbonate 19, BUN and creatinine is 57 and 7.9, glucose is 233. Troponin is 0.158. Hepatitis profile is negative, nonreactive. HDL cholesterol is 65, total cholesterol is 113. Chest x-ray shows no acute findings. EKG shows sinus rhythm, heart rate of 90 per minute. This EKG was from 07/27/2019. ASSESSMENT AND PLAN: 1. Volume overload secondary to missed hemodialysis. The patient to get emergent hemodialysis. 2. Hyperkalemia. The patient to get emergent hemodialysis. Recheck potassium after the hemodialysis. 3. Insulin-dependent diabetes. Continue insulin. 4. Hypertension. The patient is hypotensive. We will hold antihypertensives, especially clonidine for the time being. 5. Insulin-dependent diabetes. Continue insulin and coverage. 6. Gastroesophageal reflux disease. Continue Protonix. 7. Bilateral leg ulcers. Wound care consult requested. The patient goes to [facility] and hyperbaric oxygen therapy. 8. Chronic pain. Continue oxycodone 10 mg q. 12 p.r.n. 9. Syncope. The patient has recurrent syncope. No workup at this point. 10. Elevated troponins. Non-ST elevated myocardial infarction type 2 secondary to troponin leak. No further workup for the elevated troponin. 11. Deep venous thrombosis prophylaxis, heparin 5000 q. 12. In summary, the patient has hyperkalemia, volume overload secondary to missed dialysis, end-stage renal disease, hypertension and hypotension and calciphylaxis both lower extremities. JOB# [id number] CAROLINE/NEELA ROMERO
[2019-08-14] MEDS ORDERED: CHOLECALCIFEROL (VIT D3) 400 UNIT TAB PO SCH (10:00)
[2019-08-14] MEDS ORDERED: PANTOPRAZOLE 40 MG TAB PO SCH (10:00)
--- NOTE | 2019-08-14 10:22 | Discharge Summary ---
Providers - Providers Date of Admission: 08/13/19 17:12 Date of discharge: 08/14/19 Attending physician: LIZY BROWN 08/14/19 05:44 Consult to Wound/ET Nurse [CONS] Routine Reason For Exam: wound eval Primary care physician: ALKA EVANS Hospitalization Reason for admission: Syncope/missed Dialysis Condition: Stable Pertinent studies: CXR,CT head Hospital course: 44-year-old -Serbian female patient with extensive medical history looting ESRD on dialysis complains of syncopal episode on Friday during dialysis and "not feeling right" for the past week. Patient unsure of a long she was unconscious and states she did not go to the hospital after the syncopal episode. Patient follows with Dr. Francis, nephrology. He gets dialysis MWF, but missed HD x2 , Admitted,evaluated by Nephrology,received HD. Blood sugars and blood pressures monitored and meds optimised. Today patient is comfortable,no new complaints ,stable at discharge. Discharge Diagnosis: --ESRD: missed last two sessions. Will dialyze today per MWF schedule and for acute metabolic abnormalities noted. --Hyperkalemia: recheck labs after HD --Metabolic Acidosis: likely in setting of missed HD --Anemia: likely related to CKD. Will provide ESAs if patient remains inpatient with HD --Hypertension:Moderate control --Type 2 DM :Accu checks,SSC,Insulin --Osmar chronic leg ulcers: wound care out pt --Morbid Obesity: advised weigt reduction when medically stable --Ongoing Tobacco use: smoking cessation. Stable at discharge Disposition: DC-01 TO HOME OR SELFCARE Time spent for discharge: 32 min Core Measure Documentation - Palliative Care Palliative Care/ Comfort Measures: Not Applicable - Core Measures Any of the following diagnoses?: none Exam - Constitutional Vitals: Temp Pulse Resp BP Pulse Ox 97.8 F 99 H 20 135/78 99 08/14/19 06:50 08/14/19 06:50 08/14/19 06:50 08/14/19 06:50 08/14/19 01:51 General appearance: Present: no acute distress, well-nourished - EENT Eyes: Present: PERRL, EOM intact - Neck Neck: Present: supple, normal ROM - Respiratory Respiratory effort: normal Respiratory: bilateral: diminished, negative: rales, rhonchi, wheezing - Cardiovascular Rhythm: regular Heart Sounds: Present: S1 & S2 - Extremities Extremities: no ischemia, No edema - Abdominal General gastrointestinal: Present: soft, non-tender, non-distended, normal bowel sounds - Integumentary Integumentary: Present: clear, warm - Musculoskeletal Musculoskeletal: strength equal bilaterally - Psychiatric Psychiatric: appropriate mood/affect, cooperative - Neurologic Neurologic: CNII-XII intact, moves all extremities Plan Activity: no restrictions Diet: diabetic, renal Wound: per wound nurse instructions Additional Instructions: Wound care. F/U Renal and HD per schedule Follow up with: PRIMARY CARE, [Referring] - 3-5 Days Prescriptions: Insulin NPH/Regular [NovoLIN 70/30] 5 unit SUB-Q BIDDIAB #10 ml
[2019-08-14 12:35] VITALS: BP 126/75
== END 2019-08-14 14:00 | disposition home or self-care (01) ==
LOC: ED 12:31 → 3A 17:12
PROVIDERS: ADMIT Internal Medicine; ATTEND Internal Medicine
DX: E87.70 Fluid overload, unspecified (principal); I13.2 Hypertensive heart and chronic kidney disease with heart failure and with stage 5 chronic kidney disease, or end stage renal disease; E11.22 Type 2 diabetes mellitus with diabetic chronic kidney disease; N18.6 End stage renal disease; Z99.2 Dependence on renal dialysis; E66.01 Morbid (severe) obesity due to excess calories; E87.5 Hyperkalemia; K21.9 Gastro-esophageal reflux disease without esophagitis; R55 Syncope and collapse; I82.409 Acute embolism and thrombosis of unspecified deep veins of unspecified lower extremity; Z79.01 Long term (current) use of anticoagulants
CPT/HCPCS: 36415; 70450; 71045; 80048; 80053; 80061; 80074; 82962; 84484; 84703; 85025; 87116; 93005; 93010; 96372; 99284; G0378; G0257; J1815

== ENCOUNTER 2019-08-25 22:30 | Inpatient (IN) | payer MEDICARE ==
[2019-08-25] MEDS ORDERED: VANCOMYCIN 1,000 MG in SODIUM CHLORIDE 0.9% 500 ML 500 ML IV ONE (22:38)
[2019-08-25] MEDS ORDERED: SODIUM CHLORIDE 0.9% 500 ML 500 ML IV ONE (22:41)
--- NOTE | 2019-08-25 22:45 | Emergency Department Report ---
ED Shortness of Breath HPI - General Stated Complaint: ANAMIKA Time Seen by Provider: 08/25/19 22:34 - History of Present Illness Initial Comments: Patient is a 44-year-old female with past medical history of hypertension and end-stage renal disease who missed her dialysis today secondary to feeling ill with presented with respiratory distress. Patient called paramedics secondary to the shortness of breath. Patient's states he's had inc reased cough is not productive since last night. She denies nausea vomiting but does state she has body aches. Patient has had chills at home. Patient was admitted to the hospital approximately one month ago with sepsis. Paramedics state on their arrival patient was satting in the low 90s and has some increased work of breathing. She's had some mild improvement since being placed on oxygen. - Related Data Home Medications Medication Instructions Recorded Confirmed Last Taken Ergocalciferol(Vitamin D2)(Nf) 800 unit PO DAILY 07/06/19 08/13/19 1 Day Ago [Vitamin D (Nf)] ~08/12/19 cloNIDine [Catapres] 0.2 mg PO BID 07/06/19 08/13/19 08/13/19 Previous Rx's Medication Instructions Recorded Last Taken Type Pantoprazole [Protonix TAB] 40 mg PO QDAY #30 tablet 07/14/19 08/13/19 Rx oxyCODONE ER [oxyCONTIN ER] 10 mg PO Q12HR PRN #30 tablet 07/28/19 08/12/19 Rx Insulin NPH/Regular [NovoLIN 70/30] 5 unit SUB-Q BIDDIAB units 08/13/19 Unknown Rx Insulin NPH/Regular [NovoLIN 70/30] 5 unit SUB-Q BIDDIAB #10 ml 08/13/19 Unknown Rx Lactulose [Cephulac] 20 gm PO BID oral.liqd 08/13/19 Unknown Rx Pantoprazole [Protonix TAB] 40 mg PO QDAY tablet 08/13/19 Unknown Rx oxyCODONE ER [oxyCONTIN ER] 10 mg PO Q12HR PRN tablet 08/13/19 Unknown Rx Allergies Allergy/AdvReac Type Severity Reaction Status Date / Time No Known Allergies Allergy Verified 03/12/19 12:23 ED Review of Systems ROS: Stated complaint: ANAMIKA Other details as noted in HPI Comment: All other systems reviewed and negative ED Past Medical Hx - Past Medical History Previous Medical History?: Yes Hx Hypertension: Yes Hx Heart Attack/AMI: No Hx Congestive Heart Failure: Yes Hx Diabetes: Yes Hx Deep Vein Thrombosis: No Hx Pulmonary Embolism: No Hx Liver Disease: Yes Hx Renal Disease: Yes Hx Asthma: No Hx COPD: Yes Hx Tuberculosis: No Hx HIV: No Additional medical history: PVD, and cellulitis - Surgical History Hx Coronary Stent: No Hx Pacemaker: No Hx Internal Defibrillator: No Additional Surgical History: Perm cath, - Social History Smoking Status: Never Smoker - Medications Home Medications: Home Medications Medication Instructions Recorded Confirmed Last Taken Type Ergocalciferol(Vitamin D2)(Nf) 800 unit PO DAILY 07/06/19 08/13/19 1 Day Ago History [Vitamin D (Nf)] ~08/12/19 cloNIDine [Catapres] 0.2 mg PO BID 07/06/19 08/13/19 08/13/19 History Pantoprazole [Protonix TAB] 40 mg PO QDAY #30 tablet 07/14/19 08/13/19 08/13/19 Rx oxyCODONE ER [oxyCONTIN ER] 10 mg PO Q12HR PRN #30 tablet 07/28/19 08/13/19 08/12/19 Rx Insulin NPH/Regular [NovoLIN 70/30] 5 unit SUB-Q BIDDIAB units 08/13/19 Unknown Rx Insulin NPH/Regular [NovoLIN 70/30] 5 unit SUB-Q BIDDIAB #10 ml 08/13/19 Unknown Rx Lactulose [Cephulac] 20 gm PO BID oral.liqd 08/13/19 Unknown Rx Pantoprazole [Protonix TAB] 40 mg PO QDAY tablet 08/13/19 Unknown Rx oxyCODONE ER [oxyCONTIN ER] 10 mg PO Q12HR PRN tablet 08/13/19 Unknown Rx ED Physical Exam - General General appearance: alert, in no apparent distress - Head Head exam: Present: atraumatic, normocephalic - Eye Eye exam: Present: normal appearance, PERRL, EOMI - ENT ENT exam: Present: mucous membranes moist - Neck Neck exam: Present: normal inspection - Respiratory Respiratory exam: Present: rhonchi. Absent: normal lung sounds bilaterally, respiratory distress, wheezes, rales, chest wall tenderness - Cardiovascular Cardiovascular Exam: Present: regular rate, normal rhythm, tachycardia, normal heart sounds. Absent: systolic murmur, diastolic murmur, rubs, gallop - GI/Abdominal GI/Abdominal exam: Present: soft, normal bowel sounds. Absent: distended, tenderness, guarding, rebound - Extremities Exam Extremities exam: Present: normal inspection - Back Exam Back exam: Present: normal inspection - Neurological Exam Neurological exam: Present: alert, oriented X3 - Psychiatric Psychiatric exam: Present: normal affect, normal mood - Skin Skin exam: Present: warm, dry, intact, normal color, other (left chest permacath present). Absent: rash ED Course Vital Signs 08/25/19 23:50 Temperature 102.0 F H Pulse Rate 133 H Respiratory 24 Rate Blood Pressure 138/75 O2 Sat by Pulse 95 Oximetry ED Medical Decision Making - Lab Data Result diagrams: 08/25/19 23:03 08/25/19 23:03 Lab Results 08/25/19 08/25/19 08/25/19 Range/Units 00:07 23:03 23:03 WBC 18.7 H (4.5-11.0) K/mm3 RBC 3.34 L (3.65-5.03) M/mm3 Hgb 9.3 L (10.1-14.3) gm/dl Hct 29.9 L (30.3-42.9) % MCV 89 (79-97) fl MCH 28 (28-32) pg MCHC 31 (30-34) % RDW 18.6 H (13.2-15.2) % Plt Count 251 (140-440) K/mm3 Lymph % (Auto) 6.4 L (13.4-35.0) % Camp % (Auto) 6.1 (0.0-7.3) % Eos % (Auto) 4.1 (0.0-4.3) % Baso % (Auto) 0.6 (0.0-1.8) % Lymph # 1.2 (1.2-5.4) K/mm3 Camp # 1.1 H (0.0-0.8) K/mm3 Eos # 0.8 H (0.0-0.4) K/mm3 Baso # 0.1 (0.0-0.1) K/mm3 Seg Neutrophils % 82.8 H (40.0-70.0) % Seg Neutrophils # 15.5 H (1.8-7.7) K/mm3 APTT 31.8 (24.2-36.6) Sec. Sodium (137-145) mmol/L Potassium (3.6-5.0) mmol/L Chloride (98-107) mmol/L Carbon Dioxide (22-30) mmol/L Anion Gap mmol/L BUN (7-17) mg/dL Creatinine (0.7-1.2) mg/dL Estimated GFR ml/min BUN/Creatinine Ratio % Glucose (65-100) mg/dL Lactic Acid (0.7-2.0) mmol/L Calcium (8.4-10.2) mg/dL Total Bilirubin (0.1-1.2) mg/dL AST (5-40) units/L ALT (7-56) units/L Alkaline Phosphatase (35-129) units/L Total Protein (6.3-8.2) g/dL Albumin (3.9-5) g/dL Albumin/Globulin Ratio % Influenza A (Rapid) Negative (Negative) Influenza B (Rapid) Negative (Negative) 08/25/19 08/25/19 Range/Units 23:03 23:03 WBC (4.5-11.0) K/mm3 RBC (3.65-5.03) M/mm3 Hgb (10.1-14.3) gm/dl Hct (30.3-42.9) % MCV (79-97) fl MCH (28-32) pg MCHC (30-34) % RDW (13.2-15.2) % Plt Count (140-440) K/mm3 Lymph % (Auto) (13.4-35.0) % Camp % (Auto) (0.0-7.3) % Eos % (Auto) (0.0-4.3) % Baso % (Auto) (0.0-1.8) % Lymph # (1.2-5.4) K/mm3 Camp # (0.0-0.8) K/mm3 Eos # (0.0-0.4) K/mm3 Baso # (0.0-0.1) K/mm3 Seg Neutrophils % (40.0-70.0) % Seg Neutrophils # (1.8-7.7) K/mm3 APTT (24.2-36.6) Sec. Sodium 133 L (137-145) mmol/L Potassium 3.7 (3.6-5.0) mmol/L Chloride 95.3 L (98-107) mmol/L Carbon Dioxide 24 (22-30) mmol/L Anion Gap 17 mmol/L BUN 29 H (7-17) mg/dL Creatinine 5.1 H (0.7-1.2) mg/dL Estimated GFR 11 ml/min BUN/Creatinine Ratio 6 % Glucose 188 H (65-100) mg/dL Lactic Acid 2.70 H* (0.7-2.0) mmol/L Calcium 8.4 (8.4-10.2) mg/dL Total Bilirubin 1.70 H (0.1-1.2) mg/dL AST 13 (5-40) units/L ALT 8 (7-56) units/L Alkaline Phosphatase 167 H (35-129) units/L Total Protein 7.7 (6.3-8.2) g/dL Albumin 2.3 L (3.9-5) g/dL Albumin/Globulin Ratio 0.4 % Influenza A (Rapid) (Negative) Influenza B (Rapid) (Negative) - Radiology Data CHEST 1 VIEW 08/25/2019 10:45 PM INDICATION / CLINICAL INFORMATION: respiratory distress. COMPARISON: 08/13/19 FINDINGS: SUPPORT DEVICES: Left PermCath is unchanged. HEART / MEDIASTINUM: Upper normal size and stable. LUNGS / PLEURA: No significant pulmonary or pleural abnormality. No pneumothorax. ADDITIONAL FINDINGS: No significant additional findings. IMPRESSION: 1. No acute findings. No change Signer Name: Anastasia Valdes MD - Medical Decision Making Patient is a 44-year-old [place] female is presenting with cough congestion fevers and chills for the past 2 days. Patient also is complaining of some body aches. Patient did not have dialysis today her last dialysis was 2 days ago which was in her normal schedule. The patient was admitted and discharged on 07/28/2019 with a syncopal episode that occurred hemodialysis. Patient's had chest compressions done at that time. Not see a documented fever during that admission. Patient had a slight amount in her white count and was diagnosed with serous fluid overload end-stage renal disease. Today patient is complaining of fever cough and congestion. Chest x-ray is suggestive of an obvious pneumonia however the patient does have cardiomegaly and has a low sodium and chloride consistent with some mild dehydration and with further hydration a pneumonia may be more obvious on chest x-ray. Patient also had a flu sent however at the time of admission this is not back. Patient does meet criteria for sepsis. Patient was given antibiotics to treat a hospital-acquired pneumonia. Patient will be admitted to the hospitalist service. Fluids be given gently secondary to the patient end-stage renal disorder however patient does not seem to be fluid overloaded at this time. Critical Care Time: Yes (30) Critical care attestation.: If time is entered above; I have spent that time in minutes in the direct care of this critically ill patient, excluding procedure time. ED Disposition Clinical Impression: Missed dialysis, Mild dehydration, End stage renal disease on dialysis Sepsis Qualifiers: Sepsis type: sepsis due to unspecified organism Sepsis acute organ dysfunction status: unspecified Qualified Code(s): A41.9 - Sepsis, unspecified organism Disposition: OP ADMIT IP TO THIS HOSP Is pt being admited?: Yes Does the pt Need Aspirin: No Condition: Stable Time of Disposition: 01:15
[2019-08-25] MEDS ORDERED: VANCOMYCIN PHARMACY TO DOSE IV SCH (23:00)
[2019-08-25 23:28] LABS: Basophils # (Auto) 0.1 K/mm3 (0.0-0.1); Basophils % (Auto) 0.6 % (0.0-1.8); Eosinophils # (Auto) 0.8 K/mm3 (0.0-0.4); Eosinophils % (Auto) 4.1 % (0.0-4.3); Hematocrit 29.9 % (30.3-42.9); Hemoglobin 9.3 gm/dl (10.1-14.3); Lymphocytes # (Auto) 1.2 K/mm3 (1.2-5.4); Lymphocytes % (Auto) 6.4 % (13.4-35.0); Mean Corpuscular HGB Conc 31 % (30-34); Mean Corpuscular Volume 89 fl (79-97); Monocytes # (Auto) 1.1 K/mm3 (0.0-0.8); Monocytes % (Auto) 6.1 % (0.0-7.3); Platelet Count 251 K/mm3 (140-440); Red Blood Count 3.34 M/mm3 (3.65-5.03); Red Cell Distribution Width 18.6 % (13.2-15.2)
[2019-08-25] MEDS ORDERED: VANCOMYCIN/NS 1 GM/250 ML 1 GM/250 ML BAG IV ONE (23:30)
--- NOTE | 2019-08-25 23:42 | XRay Report ---
CHEST 1 VIEW 08/25/2019 10:45 PM INDICATION / CLINICAL INFORMATION: respiratory distress. COMPARISON: 08/13/19 FINDINGS: SUPPORT DEVICES: Left PermCath is unchanged. HEART / MEDIASTINUM: Upper normal size and stable. LUNGS / PLEURA: No significant pulmonary or pleural abnormality. No pneumothorax. ADDITIONAL FINDINGS: No significant additional findings. IMPRESSION: 1. No acute findings. No change Signer Name: Anastasia Valdes MD Signed: 08/25/2019 11:37 PM Workstation Name: [id number]
[2019-08-25 23:51] LABS: Albumin 2.3 g/dL (3.9-5); Calcium 8.4 mg/dL (8.4-10.2)
[2019-08-26] MEDS ORDERED: IBUPROFEN 400 MG TAB PO ONE (00:01)
[2019-08-26] MEDS ORDERED: IBUPROFEN 800 MG TAB PO ONE (00:09)
[2019-08-26] MEDS: CEFEPIME/NS 2 GM/100 ML 2 GM/100 ML BAG IV SCH ×2 (00:09→01:39)
[2019-08-26] MEDS ORDERED: ONDANSETRON 4 MG/2 ML INJ IV PRN (01:21)
[2019-08-26] MEDS ORDERED: ACETAMINOPHEN 325 MG TAB PO PRN (01:21)
[2019-08-26] MEDS ORDERED: SODIUM CHLORIDE 0.9% 500 ML 500 ML IV ONE ×2 (01:41→02:34)
[2019-08-26] MEDS ORDERED: HYDROCORTISONE SOD SUCC 100 MG/2 ML VIAL IV ONE (02:35)
[2019-08-26] MEDS ORDERED: ALBUTEROL 2.5 MG/3 ML NEBU IH PRN (02:59)
[2019-08-26] MEDS ORDERED: DEXTROSE 50% IN WATER (25GM) 50 ML SYRINGE IV PRN (02:59)
--- NOTE | 2019-08-26 03:20 | History and Physical Report ---
<ABNER NOLAN - Last Filed: 08/26/19 04:10> History of Present Illness Date of examination: 08/26/19 Date of admission: 08/26/2019 Chief complaint: SOB History of present illness: 44-year-old -Romanian female with history of ESRD on HD( M/W/F), hypertension, diabetes, hypertension, liver disease, PVD, cellulitis, bilateral leg ulcerations who presents to [facility] ED via EMS with complaints of shortness of breath. Patient states that she began experiencing sudden shortness of breath approximately an hour before presenting to the ED. Of note patient was unable to get dialyzed on Friday (08/25) because she was not feeling well. Pt states that she has been experiencing body aches, chills and diaphoresis for the past 2 days. Patient was concerned and decided to call EMS for transport to ED for further evaluation and treatment. She denies CP, n/v/d. She admits to increased non productive cough. Review of medical record shows patient was was admitted on 08/13 after missing her dialysis session for emergent dialysis. Patient was also admitted and treated for sepsis, enterococcus faecalis bacteremia; no clear etiology was identified with thoughts to be venous stasis vs calciphylaxis. Pt received wound debridement by Dr. Michelle and was discharge with outpatient follow-up with wound care clinic and home wound care nurse. Past History Past Medical History: COPD, diabetes, ESRD (on HD M/W/F), heart failure, hypertension, liver disease, PVD, other (cellulitis, bilateral lower extremity infection) Past Surgical History: , Other (lateral lower extremity debridement, left upper chest permacath, right upper chest permacath) Social history: lives with family Family history: no significant family history Medications and Allergies Allergies Allergy/AdvReac Type Severity Reaction Status Date / Time No Known Allergies Allergy Verified 03/12/19 12:23 Home Medications Medication Instructions Recorded Confirmed Last Taken Type Ergocalciferol(Vitamin D2)(Nf) 800 unit PO DAILY 07/06/19 08/13/19 1 Day Ago History [Vitamin D (Nf)] ~08/12/19 cloNIDine [Catapres] 0.2 mg PO BID 07/06/19 08/13/19 08/13/19 History Pantoprazole [Protonix TAB] 40 mg PO QDAY #30 tablet 07/14/19 08/13/19 08/13/19 Rx oxyCODONE ER [oxyCONTIN ER] 10 mg PO Q12HR PRN #30 tablet 07/28/19 08/13/19 08/12/19 Rx Insulin NPH/Regular [NovoLIN 70/30] 5 unit SUB-Q BIDDIAB units 08/13/19 Unknown Rx Insulin NPH/Regular [NovoLIN 70/30] 5 unit SUB-Q BIDDIAB #10 ml 08/13/19 Unknown Rx Lactulose [Cephulac] 20 gm PO BID oral.liqd 08/13/19 Unknown Rx Pantoprazole [Protonix TAB] 40 mg PO QDAY tablet 08/13/19 Unknown Rx oxyCODONE ER [oxyCONTIN ER] 10 mg PO Q12HR PRN tablet 08/13/19 Unknown Rx Active Meds: Active Medications Acetaminophen (Tylenol) 650 mg PO Q4H PRN PRN Reason: Pain MILD(1-3)/Fever >100.5/[place] Albuterol (Proventil) 2.5 mg IH Q3HRT PRN PRN Reason: Shortness Of Breath Dextrose (D50w (25gm) Syringe) 50 ml IV Q30MIN PRN PRN Reason: Hypoglycemia Heparin Sodium (Porcine) (Heparin) 5,000 unit SUB-Q Q12HR [facility] Cefepime HCl (Cefepime/Ns 2 Gm/100 Ml) 2 gm in 100 mls @ 200 mls/hr IV Q12H WALT; Protocol Vancomycin HCl (Vancomycin/Ns 1 Gm/250 Ml) 1 gm in 250 mls @ 250 mls/hr IV ONCE ONE Stop: 08/26/19 06:59 Insulin Human Lispro (Humalog) 0 unit SUB-Q ACHS WALT; Protocol Ondansetron HCl (Zofran) 4 mg IV Q8H PRN PRN Reason: Nausea And Vomiting Sodium Chloride (Sodium Chloride Flush Syringe 10 Ml) 10 ml IV BID WALT Sodium Chloride (Sodium Chloride Flush Syringe 10 Ml) 10 ml IV PRN PRN PRN Reason: LINE FLUSH Sodium Chloride (Sodium Chloride Flush Syringe 10 Ml) 10 ml IV BID WALT Sodium Chloride (Sodium Chloride Flush Syringe 10 Ml) 10 ml IV PRN PRN PRN Reason: LINE FLUSH Review of Systems All systems: negative Constitutional: weakness Cardiovascular: shortness of breath Respiratory: shortness of breath Musculoskeletal: myalgias Exam - Physical Exam Narrative exam: General appearance: Present: No acute distress, alert and oriented 3, obese, chronically ill-appearing, adult female - EENT Eyes: Present: PERRL, EOM intact ENT: hearing intact, missing teeth - Neck Neck: Present: supple, normal ROM - Respiratory Respiratory effort: Non-labored, on supplemental oxygen Respiratory: bilateral: Diminished - Cardiovascular Heart rate:112 (bpm) Rhythm:ST Heart Sounds: Present: S1, S2. - Extremities Extremities: Chronic bilateral lower extremity wounds with foul odor, wound bed has sloughed, and malodorous drainage status post debridement 06/2019, bilateral lower extremity pitting edema, pedal edema - Peripheral Assessment Peripheral Pulses: within normal limits - Abdominal General gastrointestinal: Obese, soft, non-tender, normal bowel sounds, - Integumentary Integumentary: Present: warm, dry, scattered excoriation/interior to bilateral legs and around mouth, multiple sacral pressure ulcers - Musculoskeletal Musculoskeletal: generalized weakness, bed bound -Neurological Neurological: CN II-XII grossly intact - Psychiatric Psychiatric: cooperative - Constitutional Vitals: Temp Pulse Resp BP Pulse Ox 98.8 F 112 H 20 101/57 98 08/26/19 01:00 08/26/19 01:50 08/26/19 01:50 08/26/19 01:50 08/26/19 01:50 Results - Labs CBC & Chem 7: 08/25/19 23:03 08/25/19 23:03 Labs: Laboratory Last Values WBC 18.7 K/mm3 (4.5-11.0) H 08/25/19 23:03 RBC 3.34 M/mm3 (3.65-5.03) L 08/25/19 23:03 Hgb 9.3 gm/dl (10.1-14.3) L 08/25/19 23:03 Hct 29.9 % (30.3-42.9) L 08/25/19 23:03 MCV 89 fl (79-97) 08/25/19 23:03 MCH 28 pg (28-32) 08/25/19 23:03 MCHC 31 % (30-34) 08/25/19 23:03 RDW 18.6 % (13.2-15.2) H 08/25/19 23:03 Plt Count 251 K/mm3 (140-440) 08/25/19 23:03 Lymph % (Auto) 6.4 % (13.4-35.0) L 08/25/19 23:03 Sac % (Auto) 6.1 % (0.0-7.3) 08/25/19 23:03 Eos % (Auto) 4.1 % (0.0-4.3) 08/25/19 23:03 Baso % (Auto) 0.6 % (0.0-1.8) 08/25/19 23:03 Lymph # 1.2 K/mm3 (1.2-5.4) 08/25/19 23:03 Sac # 1.1 K/mm3 (0.0-0.8) H 08/25/19 23:03 Eos # 0.8 K/mm3 (0.0-0.4) H 08/25/19 23:03 Baso # 0.1 K/mm3 (0.0-0.1) 08/25/19 23:03 Seg Neutrophils % 82.8 % (40.0-70.0) H 08/25/19 23:03 Seg Neutrophils # 15.5 K/mm3 (1.8-7.7) H 08/25/19 23:03 APTT 31.8 Sec. (24.2-36.6) 08/25/19 23:03 Sodium 133 mmol/L (137-145) L 08/25/19 23:03 Potassium 3.7 mmol/L (3.6-5.0) 08/25/19 23:03 Chloride 95.3 mmol/L (98-107) L 08/25/19 23:03 Carbon Dioxide 24 mmol/L (22-30) 08/25/19 23:03 Anion Gap 17 mmol/L 08/25/19 23:03 BUN 29 mg/dL (7-17) H 08/25/19 23:03 Creatinine 5.1 mg/dL (0.7-1.2) H 08/25/19 23:03 Estimated GFR 11 ml/min 08/25/19 23:03 BUN/Creatinine Ratio 6 % 08/25/19 23:03 Glucose 188 mg/dL (65-100) H 08/25/19 23:03 Lactic Acid 2.30 mmol/L (0.7-2.0) H* 08/26/19 00:37 Calcium 8.4 mg/dL (8.4-10.2) 08/25/19 23:03 Total Bilirubin 1.70 mg/dL (0.1-1.2) H 08/25/19 23:03 AST 13 units/L (5-40) 08/25/19 23:03 ALT 8 units/L (7-56) 08/25/19 23:03 Alkaline Phosphatase 167 units/L (35-129) H 08/25/19 23:03 Total Protein 7.7 g/dL (6.3-8.2) 08/25/19 23:03 Albumin 2.3 g/dL (3.9-5) L 08/25/19 23:03 Albumin/Globulin Ratio 0.4 % 08/25/19 23:03 Influenza A (Rapid) Negative (Negative) 08/25/19 00:07 Influenza B (Rapid) Negative (Negative) 08/25/19 00:07 Assessment and Plan Assessment and plan: 44-year-old -Romanian female with history of ESRD on HD( M/W/), hypertension, diabetes, hypertension, liver disease, PVD, cellulitis, bilateral leg ulcerations who presents to [facility] ED via EMS with complaints of shortness of breath. Sepsis -Leukocytosis 18.7 -Tachycardic 112bpm -Hypotensive with BP 96/45 -Suspected source of infection bilateral lower extremity wounds -Hx Enterococcus faecalis bacteremia with no clear etiology noted, with thoughts to be venous stasis vs calciphylaxis -Blood cultures pending -UA pending -On cefepime and vancomycin -ID consulted Hypotension -BP has continued to drop since presentation -BP currently 96/45 -Patient has received 1L fluid bolus in ED, pending additional 50cc bolus -Hx of HTN; hold all hypertensive meds ESRD on HD -// -Last dialyzed on Friday (08/23/19) -Missed 08/25 HD session d/t not feeling well -Avoid nephrotoxin agents -Renal dose all meds -Nephrology consulted Lactic acidosis -Lactic acid 2.30 (trending down on admission 2.7) -on IV Abx -Received IVF -Continue to monitor 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 Michelle (General Surgery) consulted -Wound care consulted Acute hypoxic respiratory failure -No Baseline home oxygen requirements -Saturation of 90 on RA -Currently on supplemental -Possibly due to obesity hypoventilation syndrome -Monitor saturations -Monitor CO2 -Continue supplemental oxygen wean as tolerated COPD -Albuterol when necessary DM2 -POC BG monitoring -SSI coverage prn -Hgb A1c pending Anemia of chronic disease -Hemoglobin on admission 9.3 -No s/s of active bleeding -Continue to monitor hemoglobin -Transfuse as needed DVT PPX -On Heparin Advance Directives: No VTE prophylaxis?: Chemical Plan of care discussed with patient/family: Yes <LASHAY GILLESPIE - Last Filed: 08/26/19 05:36> History of Present Illness Date of admission: 08/26/19 01:21 Medications and Allergies Active Meds: Active Medications Acetaminophen (Tylenol) 650 mg PO Q4H PRN PRN Reason: Pain MILD(1-3)/Fever >100.5/[place] Albuterol (Proventil) 2.5 mg IH Q3HRT PRN PRN Reason: Shortness Of Breath Dextrose (D50w (25gm) Syringe) 0 ml IV Q30MIN PRN PRN Reason: Hypoglycemia Heparin Sodium (Porcine) (Heparin) 5,000 unit SUB-Q Q12HR [facility] Cefepime HCl (Cefepime/Ns 2 Gm/100 Ml) 2 gm in 100 mls @ 200 mls/hr IV Q12H [facility]; Protocol Vancomycin HCl (Vancomycin/Ns 1 Gm/250 Ml) 1 gm in 250 mls @ 250 mls/hr IV ONCE ONE Stop: 08/26/19 06:59 Insulin Human Lispro (Humalog) 0 unit SUB-Q ACHS [facility]; Protocol Ondansetron HCl (Zofran) 4 mg IV Q8H PRN PRN Reason: Nausea And Vomiting Pantoprazole Sodium (Protonix) 40 mg IV QDAY [facility] Sodium Chloride (Sodium Chloride Flush Syringe 10 Ml) 10 ml IV BID [place]ALT Sodium Chloride (Sodium Chloride Flush Syringe 10 Ml) 10 ml IV PRN PRN PRN Reason: LINE FLUSH Exam - Constitutional Vitals: Temp Pulse Resp BP Pulse Ox 98.8 F 129 H 19 98/45 100 08/26/19 01:00 08/26/19 04:10 08/26/19 04:10 08/26/19 04:10 08/26/19 04:10 Results - Labs CBC & Chem 7: 08/25/19 23:03 08/25/19 23:03 Labs: Laboratory Last Values WBC 18.7 K/mm3 (4.5-11.0) H 08/25/19 23:03 RBC 3.34 M/mm3 (3.65-5.03) L 08/25/19 23:03 Hgb 9.3 gm/dl (10.1-14.3) L 08/25/19 23:03 Hct 29.9 % (30.3-42.9) L 08/25/19 23:03 MCV 89 fl (79-97) 08/25/19 23:03 MCH 28 pg (28-32) 08/25/19 23:03 MCHC 31 % (30-34) 08/25/19 23:03 RDW 18.6 % (13.2-15.2) H 08/25/19 23:03 Plt Count 251 K/mm3 (140-440) 08/25/19 23:03 Lymph % (Auto) 6.4 % (13.4-35.0) L 08/25/19 23:03 Sac % (Auto) 6.1 % (0.0-7.3) 08/25/19 23:03 Eos % (Auto) 4.1 % (0.0-4.3) 08/25/19 23:03 Baso % (Auto) 0.6 % (0.0-1.8) 08/25/19 23:03 Lymph # 1.2 K/mm3 (1.2-5.4) 08/25/19 23:03 Sac # 1.1 K/mm3 (0.0-0.8) H 08/25/19 23:03 Eos # 0.8 K/mm3 (0.0-0.4) H 08/25/19 23:03 Baso # 0.1 K/mm3 (0.0-0.1) 08/25/19 23:03 Seg Neutrophils % 82.8 % (40.0-70.0) H 08/25/19 23:03 Seg Neutrophils # 15.5 K/mm3 (1.8-7.7) H 08/25/19 23:03 APTT 31.8 Sec. (24.2-36.6) 08/25/19 23:03 Sodium 133 mmol/L (137-145) L 08/25/19 23:03 Potassium 3.7 mmol/L (3.6-5.0) 08/25/19 23:03 Chloride 95.3 mmol/L (98-107) L 08/25/19 23:03 Carbon Dioxide 24 mmol/L (22-30) 08/25/19 23:03 Anion Gap 17 mmol/L 08/25/19 23:03 BUN 29 mg/dL (7-17) H 08/25/19 23:03 Creatinine 5.1 mg/dL (0.7-1.2) H 08/25/19 23:03 Estimated GFR 11 ml/min 08/25/19 23:03 BUN/Creatinine Ratio 6 % 08/25/19 23:03 Glucose 188 mg/dL (65-100) H 08/25/19 23:03 Hemoglobin A1c 6.4 % (4-6) H 08/25/19 23:03 Lactic Acid 2.30 mmol/L (0.7-2.0) H* 08/26/19 04:03 Calcium 8.4 mg/dL (8.4-10.2) 08/25/19 23:03 Total Bilirubin 1.70 mg/dL (0.1-1.2) H 08/25/19 23:03 AST 13 units/L (5-40) 08/25/19 23:03 ALT 8 units/L (7-56) 08/25/19 23:03 Alkaline Phosphatase 167 units/L (35-129) H 08/25/19 23:03 Total Protein 7.7 g/dL (6.3-8.2) 08/25/19 23:03 Albumin 2.3 g/dL (3.9-5) L 08/25/19 23:03 Albumin/Globulin Ratio 0.4 % 08/25/19 23:03 Influenza A (Rapid) Negative (Negative) 08/25/19 00:07 Influenza B (Rapid) Negative (Negative) 08/25/19 00:07 Assessment and Plan Assessment and plan: 44-year-old was admitted history of hypertension, diabetes, end-stage renal disease on dialysis, chronic lower extremity and sacral wounds was brought to the emergency room for evaluation for shortness of breath, cough productive of white phlegm, fever. Her wounds in lower extremity are infected, agree with IV antibiotic infectious disease consult surgical consult.
[2019-08-26] MEDS ORDERED: VANCOMYCIN/NS 1 GM/250 ML 1 GM/250 ML BAG IV ONE ×2 (06:00→08:00)
--- NOTE | 2019-08-26 07:47 | Event Note ---
Date: 08/26/19 Patient was admitted early this morning at sepsis secondary to bilateral leg infected ulcers , lactic acidosis , leukocytosis Started on empiric antibiotics , consult ID, surgery. Patient also had end- stage renal disease on hemodialysis, nephrology consultation Acute hypoxic respiratory failure, on oxygen, hypertension on IV fluids and supportive care. Medical records reviewed, agree with the current management, follow consults evaluation and recommendations Monitor clinically and adjust the management as needed. Patient is stable downgraded to MedSur floor. Plan of care is reviewed with the ER nurse
[2019-08-26] MEDS ORDERED: INSULIN LISPRO 100 UNIT/ML SUB-Q ONE (08:12)
[2019-08-26] MEDS: INSULIN LISPRO 100 UNIT/ML SUB-Q SCH ×4 (08:13→23:53)
--- NOTE | 2019-08-26 08:37 | Consultation ---
History of Present Illness - History of Present Illness Thank you for the consultation ! Patient was evaluated today My assessment and plan are as follows; End-stage renal disease: Patient is currently not stable for dialysis and there is no emergent indication for renal replacement therapy at this time Patient appears to be mildly hypotensive, tachycardic, likely due to sepsis, possibly from the central line She has been told, that she is not a candidate for fistula or graft. We'll check with vascular surgery at some point Significant edema with changes of chronic stasis and ulceration both lower extremity, most of this is resulting from body habitus, poor eating habits and dietary noncompliance. Discussed with patient. She was counseled and educated Anemia and end-stage renal disease: To monitor and follow Dialysis access. Currently is a central venous catheter, which according to patient, there is approximately a month old, we'll need to rule out infection. Discussed with dialysis nurse, Zoë to obtain 2 sets of culture, one from each port, also central venous catheter sepsis-like picture, patient is not suitable for acute dialysis, there are no emergent indications She needs to be monitored closely If required she may need to be transferred to ICU Secondary hyperparathyroidism and bone mineral disorder. We'll check phosphorus and PTH level Prognosis guarded at this time. Care plan discussed with patient as well as her family member at the bedside Patient was adequately counseled and educated regarding multiple renal related issues. Overall prognosis appears to be guarded possibly could be poor has been discussed with patient and family member at the bedside Outpatient dialysis facility is [facility] All renal related questions were answered and simple Romanian pertinent lab studies as well as imaging results were also discussed with patient We will continue to follow and make recommendations from renal standpoint. Thank you for the consultation Author: Rogelio Green M.D. [facility], [address] [place] [address] Tel; [phone] Source of information: From patient herself as well as dialysis record from [facility] Shayla History of present illness Patient is a 44-year-old -Citizen Of [place] female who is currently on maintenance hemodialysis Friday and Friday patient has been admitted here with sepsis-like picture, has been complaining of shortness of breath she has also been noted to be hypotensive and tachycardic, with significantly elevated lactic acid level her current dialysis access is a permacath in the left upper chest, she used to have a catheter in the right side in the past She was unable to dialyze yesterday as she was not feeling well chest x-ray does not show any evidence of fluid overload She has history of Enterococcus faecalis bacteremia of unclear etiology, noted 07/05/19 and does have active wounds both lower extremity with cellulitis She has also been noted to be febrile elevated white cell count with hypotension and tachycardia, has had chills and right nurse at home, shortness of breath is about the same Past medical history is significant for Bacteremia with Enterococcus faecalis, June 2019 Diphtheroid May 2019 Wound culture positive for Escherichia coli July 2019 End-stage renal disease Congestive heart failure Diabetes mellitus type 2 Obesity Liver disease COPD Peripheral arterial disease Cellulitis Current allergies none Home medication/last present medication: Reviewed Social history/family history: Reviewed Review of system: Positive for weakness fever or chills blood pressure being low Patient mildly tachycardic Chronic swelling of both lower extremity with ulceration Very poor compliance with diet All other review of systems negative Physical examination Vitals: Reviewed General: No acute distress HEENT: Oral mucosa moist no pallor or icterus Neck: Supple without any JVD thyromegaly or nodular mass Does have central venous catheter: Site unremarkable Chest: Clear to auscultation Heart: Regular rate and rhythm S1-S2 heard no S3-S4 Abdomen: Soft nontender, bowel sounds present no renal bruit no suprapubic masses no CVA tenderness noted Limited examination due to morbid obesity Extremity: Patient does have more than 3+ edema bilateral dressing in place Endocrine: Thyroid not enlarged Psychiatric: No agitation and aggression noted Musculoskeletal: No joint effusion noted Labs and x-rays: Reviewed from this admission Past History Past Medical History: COPD, diabetes, ESRD (on HD M/W/F), heart failure, hypertension, liver disease, PVD, other (cellulitis, bilateral lower extremity infection) Past Surgical History: , Other (lateral lower extremity debridement, left upper chest permacath, right upper chest permacath) Social history: lives with family Family history: no significant family history Medications and Allergies Allergies Allergy/AdvReac Type Severity Reaction Status Date / Time No Known Allergies Allergy Verified 03/12/19 12:23 Home Medications Medication Instructions Recorded Confirmed Last Taken Type Ergocalciferol(Vitamin D2)(Nf) 800 unit PO DAILY 07/06/19 08/13/19 1 Day Ago History [Vitamin D (Nf)] ~08/12/19 cloNIDine [Catapres] 0.2 mg PO BID 07/06/19 08/13/19 08/13/19 History Pantoprazole [Protonix TAB] 40 mg PO QDAY #30 tablet 07/14/19 08/13/19 08/13/19 Rx oxyCODONE ER [oxyCONTIN ER] 10 mg PO Q12HR PRN #30 tablet 07/28/19 08/13/19 08/12/19 Rx Insulin NPH/Regular [NovoLIN 70/30] 5 unit SUB-Q BIDDIAB units 08/13/19 Unknown Rx Insulin NPH/Regular [NovoLIN 70/30] 5 unit SUB-Q BIDDIAB #10 ml 08/13/19 Unknown Rx Lactulose [Cephulac] 20 gm PO BID oral.liqd 08/13/19 Unknown Rx Pantoprazole [Protonix TAB] 40 mg PO QDAY tablet 08/13/19 Unknown Rx oxyCODONE ER [oxyCONTIN ER] 10 mg PO Q12HR PRN tablet 08/13/19 Unknown Rx Active Meds: Active Medications Acetaminophen (Tylenol) 650 mg PO Q4H PRN PRN Reason: Pain MILD(1-3)/Fever >100.5/[place] Albuterol (Proventil) 2.5 mg IH Q3HRT PRN PRN Reason: Shortness Of Breath Dextrose (D50w (25gm) Syringe) 0 ml IV Q30MIN PRN PRN Reason: Hypoglycemia Heparin Sodium (Porcine) (Heparin) 5,000 unit SUB-Q Q12HR [facility] Cefepime HCl (Cefepime/Ns 1 Gm/100 Ml) 1 gm in 100 mls @ 200 mls/hr IV QPM [facility] Insulin Human Lispro (Humalog) 0 unit SUB-Q ACHS [facility]; Protocol Last Admin: 08/26/19 08:13 Dose: 2 unit Documented by: Ondansetron HCl (Zofran) 4 mg IV Q8H PRN PRN Reason: Nausea And Vomiting Pantoprazole Sodium (Protonix) 40 mg IV QDAY [facility] Sodium Chloride (Sodium Chloride Flush Syringe 10 Ml) 10 ml IV BID [facility] Sodium Chloride (Sodium Chloride Flush Syringe 10 Ml) 10 ml IV PRN PRN PRN Reason: LINE FLUSH Exam - Vital Signs Vital signs: Vital Signs Pulse Resp BP Pulse Ox 133 H 34 H 138/75 100 08/25/19 23:00 08/25/19 23:00 08/25/19 23:00 08/25/19 23:00 Results - Lab Results 08/25/19 23:03 08/25/19 23:03 Most recent lab results Calcium 8.4 mg/dL (8.4-10.2) 08/25/19 23:03
[2019-08-26] MEDS ORDERED: PANTOPRAZOLE 40 MG INJ IV SCH (10:00)
[2019-08-26] MEDS ORDERED: HEPARIN 5,000 UNIT/1 ML VIAL ONE (10:36)
[2019-08-26] MEDS ORDERED: PANTOPRAZOLE 40 MG INJ IV ONE (10:36)
[2019-08-26] MEDS: HEPARIN 5,000 UNIT/1 ML VIAL SUB-Q SCH ×2 (10:44→23:51)
[2019-08-26] MEDS ORDERED: CEFEPIME/NS 2 GM/100 ML 2 GM/100 ML BAG IV SCH (12:00)
[2019-08-26] MEDS ORDERED: LIDOCAINE (4%) 40 MG/ML TOPICAL SOLN 50 ML BOTTLE TP STA (13:43)
--- NOTE | 2019-08-26 14:32 | Consultation ---
History of Present Illness - Reason for Consult Consult date: 08/26/19 - History of Present Illness 44 yo F PMhx ESRD on HD, HTN, liver disease, cellulitis, bilateral leg ulcerations admitted to the hospital complaining of SOB. She was in her normal state of health prior to admission, and had a sudden onset of SOB an hour prior to presentation. She notes skipping her dialysis this Friday due to feeling ill, and that she has had myalgias, chills, and sweats. She also complains of an associate non-productive cough, but otherwise denies symptoms. She was recently seen here is late July after again missing dialysis, and at that time she also had an Enterococcus bacteremia which was treated with Unasyn whilst inpatient followed by vancomycin as an outpatient due to ease of administration. No source was found for the bacteremia. Febrile on admission to 102 with a white count of 19. Currently receiving cefepime. Blood and wound cultures are pending. Imaging personally reviewed: CXR: L permacath, no acute abnormality. Review of Systems: Bold if positive, otherwise negative General: fevers, chills, rigors HEENT: visual disturbance, diplopia, eye pain Respiratory: cough, sputum, hemoptysis, shortness of breath Cardiovascular: chest pain, syncope Gastrointestinal: nausea, vomiting, diarrhea, abdominal pain Genitourinary: dysuria, hematuria, flank pain Musculoskeletal: neck pain, back pain, joint pain, edema Neurologic: headaches, seizures Hematologic: easy bruising or bleeding Endocrine: night sweats, acute weight loss Skin: rash, jaundice, redness Psychiatric: suicidal, homicidal ideation Past History Past Medical History: COPD, diabetes, ESRD (on HD M/W/F), heart failure, hypertension, liver disease, PVD, other (cellulitis, bilateral lower extremity infection) Past Surgical History: , Other (lateral lower extremity debridement, left upper chest permacath, right upper chest permacath) Social history: lives with family Family history: no significant family history Medications and Allergies Allergies Allergy/AdvReac Type Severity Reaction Status Date / Time No Known Allergies Allergy Verified 03/12/19 12:23 Home Medications Medication Instructions Recorded Confirmed Last Taken Type Ergocalciferol(Vitamin D2)(Nf) 800 unit PO DAILY 07/06/19 08/13/19 1 Day Ago History [Vitamin D (Nf)] ~08/12/19 cloNIDine [Catapres] 0.2 mg PO BID 07/06/19 08/13/19 08/13/19 History Pantoprazole [Protonix TAB] 40 mg PO QDAY #30 tablet 07/14/19 08/13/19 08/13/19 Rx oxyCODONE ER [oxyCONTIN ER] 10 mg PO Q12HR PRN #30 tablet 07/28/19 08/13/19 08/12/19 Rx Insulin NPH/Regular [NovoLIN 70/30] 5 unit SUB-Q BIDDIAB units 08/13/19 Unknown Rx Insulin NPH/Regular [NovoLIN 70/30] 5 unit SUB-Q BIDDIAB #10 ml 08/13/19 Unknown Rx Lactulose [Cephulac] 20 gm PO BID oral.liqd 08/13/19 Unknown Rx Pantoprazole [Protonix TAB] 40 mg PO QDAY tablet 08/13/19 Unknown Rx oxyCODONE ER [oxyCONTIN ER] 10 mg PO Q12HR PRN tablet 08/13/19 Unknown Rx Active Meds: Active Medications Acetaminophen (Tylenol) 650 mg PO Q4H PRN PRN Reason: Pain MILD(1-3)/Fever >100.5/[place] Albuterol (Proventil) 2.5 mg IH Q3HRT PRN PRN Reason: Shortness Of Breath Dextrose (D50w (25gm) Syringe) 0 ml IV Q30MIN PRN PRN Reason: Hypoglycemia Heparin Sodium (Porcine) (Heparin) 5,000 unit SUB-Q Q12HR [facility] Last Admin: 08/26/19 10:44 Dose: 5,000 unit Documented by: Cefepime HCl (Cefepime/Ns 1 Gm/100 Ml) 1 gm in 100 mls @ 200 mls/hr IV QPM [facility] Insulin Human Lispro (Humalog) 0 unit SUB-Q ACHS [facility]; Protocol Last Admin: 08/26/19 13:28 Dose: 2 unit Documented by: Ondansetron HCl (Zofran) 4 mg IV Q8H PRN PRN Reason: Nausea And Vomiting Pantoprazole Sodium (Protonix) 40 mg IV QDAY [facility] Last Admin: 08/26/19 10:44 Dose: 40 mg Documented by: Sodium Chloride (Sodium Chloride Flush Syringe 10 Ml) 10 ml IV BID [facility] Last Admin: 08/26/19 10:44 Dose: 10 ml Documented by: Sodium Chloride (Sodium Chloride Flush Syringe 10 Ml) 10 ml IV PRN PRN PRN Reason: LINE FLUSH Physical Examination - Physical Exam Narrative exam: Constitutional: Alert, cooperative. No acute distress Head, Ears, Nose: Normocephalic, atraumatic. External ears, nose normal Eyes: Conjunctivae/corneas clear. No icterus. No ptosis. Neck: Supple, no meningeal signs Oral: dentition fair, no thrush Cardiovascular: S1, S2 normal. L permacath Respiratory: Good air entry, clear to auscultation bilaterally GI: Soft, non-tender; bowel sounds normal. No peritoneal signs. Musculoskeletal: No pedal edema, no cyanosis. b/l leg wounds Skin: No rash or abscess Hem/Lymphatic: No palpable cervical or supraclavicular nodes. No lymphangitis Psych: Mood ok. Affect normal Neurological: Awake, alert, oriented. No gross abnormality - Constitutional Vitals: Vital Signs Temp Pulse Resp BP Pulse Ox 97.9 F 88 20 109/72 97 08/26/19 13:14 08/26/19 13:06 08/26/19 13:06 08/26/19 13:06 08/26/19 13:06 Temperature -Last 24 Hours Temperature 97.9 F Temperature 97.9 F Temperature 98.8 F Temperature 102.0 F Results - Labs CBC & Chem 7: 08/25/19 23:03 08/25/19 23:03 Labs: Abnormal lab results 08/25/19 08/25/19 08/25/19 Range/Units 23:03 23:03 23:03 WBC 18.7 H (4.5-11.0) K/mm3 RBC 3.34 L (3.65-5.03) M/mm3 Hgb 9.3 L (10.1-14.3) gm/dl Hct 29.9 L (30.3-42.9) % RDW 18.6 H (13.2-15.2) % Lymph % (Auto) 6.4 L (13.4-35.0) % [place] # 1.1 H (0.0-0.8) K/mm3 Eos # 0.8 H (0.0-0.4) K/mm3 Seg Neutrophils % 82.8 H (40.0-70.0) % Seg Neutrophils # 15.5 H (1.8-7.7) K/mm3 Sodium 133 L (137-145) mmol/L Chloride 95.3 L (98-107) mmol/L BUN 29 H (7-17) mg/dL Creatinine 5.1 H (0.7-1.2) mg/dL Glucose 188 H (65-100) mg/dL POC Glucose (70-105) Hemoglobin A1c (4-6) % Lactic Acid 2.70 H* (0.7-2.0) mmol/L Total Bilirubin 1.70 H (0.1-1.2) mg/dL Alkaline Phosphatase 167 H (35-129) units/L Albumin 2.3 L (3.9-5) g/dL 08/25/19 08/26/19 08/26/19 Range/Units 23:03 00:37 04:03 WBC (4.5-11.0) K/mm3 RBC (3.65-5.03) M/mm3 Hgb (10.1-14.3) gm/dl Hct (30.3-42.9) % RDW (13.2-15.2) % Lymph % (Auto) (13.4-35.0) % [place] # (0.0-0.8) K/mm3 Eos # (0.0-0.4) K/mm3 Seg Neutrophils % (40.0-70.0) % Seg Neutrophils # (1.8-7.7) K/mm3 Sodium (137-145) mmol/L Chloride (98-107) mmol/L BUN (7-17) mg/dL Creatinine (0.7-1.2) mg/dL Glucose (65-100) mg/dL POC Glucose (70-105) Hemoglobin A1c 6.4 H (4-6) % Lactic Acid 2.30 H* 2.30 H* (0.7-2.0) mmol/L Total Bilirubin (0.1-1.2) mg/dL Alkaline Phosphatase (35-129) units/L Albumin (3.9-5) g/dL 08/26/19 08/26/19 08/26/19 Range/Units 08:13 08:51 09:42 WBC (4.5-11.0) K/mm3 RBC (3.65-5.03) M/mm3 Hgb (10.1-14.3) gm/dl Hct (30.3-42.9) % RDW (13.2-15.2) % Lymph % (Auto) (13.4-35.0) % [place] # (0.0-0.8) K/mm3 Eos # (0.0-0.4) K/mm3 Seg Neutrophils % (40.0-70.0) % Seg Neutrophils # (1.8-7.7) K/mm3 Sodium (137-145) mmol/L Chloride (98-107) mmol/L BUN (7-17) mg/dL Creatinine (0.7-1.2) mg/dL Glucose (65-100) mg/dL POC Glucose 187 H (70-105) Hemoglobin A1c (4-6) % Lactic Acid 3.00 H* 2.90 H* (0.7-2.0) mmol/L Total Bilirubin (0.1-1.2) mg/dL Alkaline Phosphatase (35-129) units/L Albumin (3.9-5) g/dL 08/26/19 Range/Units 13:20 WBC (4.5-11.0) K/mm3 RBC (3.65-5.03) M/mm3 Hgb (10.1-14.3) gm/dl Hct (30.3-42.9) % RDW (13.2-15.2) % Lymph % (Auto) (13.4-35.0) % [place] # (0.0-0.8) K/mm3 Eos # (0.0-0.4) K/mm3 Seg Neutrophils % (40.0-70.0) % Seg Neutrophils # (1.8-7.7) K/mm3 Sodium (137-145) mmol/L Chloride (98-107) mmol/L BUN (7-17) mg/dL Creatinine (0.7-1.2) mg/dL Glucose (65-100) mg/dL POC Glucose 178 H (70-105) Hemoglobin A1c (4-6) % Lactic Acid (0.7-2.0) mmol/L Total Bilirubin (0.1-1.2) mg/dL Alkaline Phosphatase (35-129) units/L Albumin (3.9-5) g/dL Assessment and Plan Cultures: 08/25/19 blood culture: NGTD 08/26 LLE wound culture: NGTD 08/26 RLE wound culture: few GNR 08/26 buttock wound culture: NGTD A/P: 44 yo F PMHx ESRD on HD HTN, liver disease, cellulitis, bilateral leg ulcerations admitted with sepsis, possible wound infection 1. Acute sepsis - present with fevers and leukocytosis, most likely secondary to her wounds. Blood cultures have been obtained, would follow up the results given recent Enterococcus bacteremia. Wound cultures are pending. Flu negative. CXR normal. 2. Bilateral LE wound and buttock wounds - pending culturs, Dr. Michelle consulted again after performing debridement at last hospitalization. 3. ESRD on HD - renally dose antibiotics as appropriate Recs: - continue cefepime 2g q24h for now given GNR on gram stain of RLE culture. Fevers have abated, will hold off on broadening for now. Wounds without significant PMNs - follow up on wound care/debridement - recommend obtaining skin biopsy to determine true etiology of wounds - calciphylaxis vs pyoderma - Follow up cultures. Thank you for the consult, we will continue to follow. Flakita Negrete MD [facility] M: [phone] O: [phone] F: [phone]
--- NOTE | 2019-08-26 15:58 | Procedure Note ---
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 4% topical Lidocaine had been previously applied to her bilateral leg ulcerations. Her bilateral legs were prepped and draped. A surgical excisional debridement of necrotic skin and SQ tissue of both legs was performed with a curette. Bleeding was minimal and was controlled with pressure. Pt tolerated the procedure well. Wounds were dressed by her nurse. Final wound measurements were: 1) Right leg - 15 X 21 X 2 cm 2) Left leg - 12 X 22 X 1 cm Anesthesia: other (4% Topical Lidocaine) Surgeon: ALBERTINA SOSA Estimated blood loss: minimal Pathology: none Specimen disposition: discarded Condition: stable Disposition: no change
[2019-08-26] MEDS: CEFEPIME/NS 1 GM/100 ML 1 GM/100 ML BAG IV SCH (17:15)
[2019-08-27 03:53] LABS: Hematocrit 29.7 % (30.3-42.9); Hemoglobin 9.1 gm/dl (10.1-14.3); Mean Corpuscular HGB Conc 31 % (30-34); Mean Corpuscular Volume 91 fl (79-97); Platelet Count 256 K/mm3 (140-440); Red Blood Count 3.27 M/mm3 (3.65-5.03); Red Cell Distribution Width 18.4 % (13.2-15.2)
[2019-08-27 04:02] LABS: Calcium 8.3 mg/dL (8.4-10.2)
[2019-08-27 06:48] LABS: Basophils % (Manual) 0 % (0.0-1.8); Eosinophils % (Manual) 0 % (0.0-4.3); Total Cells Counted 100
[2019-08-27 06:49] LABS: Anisocytosis 1+; Macrocytosis Few; Poikilocytosis 1+; Schistocytes Rare; Target Cells 1+
[2019-08-27 06:50] LABS: Large Platelets Few; Platelet Estimate Consistent w Auto
[2019-08-27] MEDS: INSULIN LISPRO 100 UNIT/ML SUB-Q SCH ×4 (07:30→22:49)
--- NOTE | 2019-08-27 09:29 | Progress Note ---
Assessment and Plan Assessment * End-stage renal disease * Bilateral LE wound infection --Wound culture: GNR/GNR2 * Calciphylaxis * Lactic acidosis * Anemia secondary to ESRD * Medical noncompliance * Hx of enteroccocal bacteremia Plan: * Patient is hemodynamically improved * Resume HD MWF schedule * Monitor lytes and volume status closely * Abx per ID/primary team * Epogen TIW prn * Renal diet * Dose medications for renal function Subjective Date of service: 08/27/19 Interval history: Patient reports that she is feeling better today. Objective - Vital Signs Vital signs: Vital Signs - 12hr 08/26/19 08/27/19 22:52 05:18 Temperature 97.8 F 97.6 F Pulse Rate 85 Respiratory 18 18 Rate Blood Pressure 128/77 122/84 - General Appearance General appearance: well-developed, well-nourished, chronically ill EENT: ATNC Respiratory: Present: Clear to Ascultation, Decreased Breath Sounds Cardiology: regular, S1S2 Gastrointestinal: obese Integumentary: other (bilateral LE bandaged) Neurologic: no focal deficit Musculoskeletal: other (2+ edema thigh) Psychiatric: cooperative - Lab 08/27/19 03:39 08/27/19 03:39 Most recent lab results Calcium 8.3 mg/dL (8.4-10.2) L 08/27/19 03:39 Medications & Allergies - Medications Allergies/Adverse Reactions: Allergies No Known Allergies Allergy (Verified 03/12/19 12:23) Home Medications: Home Medications Medication Instructions Recorded Confirmed Last Taken Type Ergocalciferol(Vitamin D2)(Nf) 800 unit PO DAILY 07/06/19 08/13/19 1 Day Ago History [Vitamin D (Nf)] ~08/12/19 cloNIDine [Catapres] 0.2 mg PO BID 07/06/19 08/13/19 08/13/19 History Pantoprazole [Protonix TAB] 40 mg PO QDAY #30 tablet 07/14/19 08/13/19 08/13/19 Rx oxyCODONE ER [oxyCONTIN ER] 10 mg PO Q12HR PRN #30 tablet 07/28/19 08/13/19 08/12/19 Rx Insulin NPH/Regular [NovoLIN 70/30] 5 unit SUB-Q BIDDIAB units 08/13/19 Unknown Rx Insulin NPH/Regular [NovoLIN 70/30] 5 unit SUB-Q BIDDIAB #10 ml 08/13/19 Unknown Rx Lactulose [Cephulac] 20 gm PO BID oral.liqd 08/13/19 Unknown Rx Pantoprazole [Protonix TAB] 40 mg PO QDAY tablet 08/13/19 Unknown Rx oxyCODONE ER [oxyCONTIN ER] 10 mg PO Q12HR PRN tablet 08/13/19 Unknown Rx Active Medications: Generic Name Dose Route Start Last Admin Trade Name Kimberley PRN Reason Stop Dose Admin Acetaminophen 650 mg 08/26/19 01:21 Tylenol PO Q4H PRN Pain MILD(1-3)/Fever >100.5/[place] Albuterol 2.5 mg 08/26/19 02:59 Proventil IH Q3HRT PRN Shortness Of Breath Dextrose 0 ml 08/26/19 02:59 D50w (25gm) Syringe IV Q30MIN PRN Hypoglycemia Heparin Sodium (Porcine) 5,000 unit 08/26/19 10:00 08/26/19 23:51 Heparin SUB-Q 5,000 unit Q12HR [facility] Administration Cefepime HCl 1 gm in 100 mls @ 200 mls/hr 08/26/19 18:00 08/26/19 17:15 Cefepime/Ns 1 Gm/100 Ml IV 200 mls/hr QPM [facility] Administration Insulin Human Lispro 0 unit 08/26/19 07:30 08/26/19 23:53 Humalog SUB-Q 3 unit ACHS [facility] Administration Protocol Ondansetron HCl 4 mg 08/26/19 01:21 Zofran IV Q8H PRN Nausea And Vomiting Pantoprazole Sodium 40 mg 08/27/19 10:00 Protonix PO DAILY [facility] Sodium Chloride 10 ml 08/26/19 10:00 08/26/19 23:52 Sodium Chloride Flush Syringe 10 Ml IV 10 ml BID [facility] Administration Sodium Chloride 10 ml 08/26/19 01:21 Sodium Chloride Flush Syringe 10 Ml IV PRN PRN LINE FLUSH
[2019-08-27] MEDS ORDERED: HEPARIN 10,000 UNIT/1 ML VIAL IV PRN (09:35)
[2019-08-27] MEDS ORDERED: SODIUM CHLORIDE 0.9% 100 ML IV PRN (09:35)
[2019-08-27] MEDS: PANTOPRAZOLE 40 MG TAB PO SCH (11:03)
[2019-08-27] MEDS: HEPARIN 5,000 UNIT/1 ML VIAL SUB-Q SCH ×2 (11:03→22:49)
--- NOTE | 2019-08-27 12:01 | Progress Note ---
Assessment and Plan Cultures: 08/25/19 blood culture: NGTD 08/26 LLE wound culture: GNR, GNR#2 08/26 RLE wound culture: GNR, GNR #2 08/26 buttock wound culture: GNR, GNR#2, Enterococcus A/P: 44 yo F PMHx ESRD on HD HTN, liver disease, cellulitis, bilateral leg ulcerations admitted with sepsis, possible wound infection 1. Acute sepsis - present with fevers and leukocytosis, most likely secondary to her wounds. Blood cultures have been obtained, would follow up the results given recent Enterococcus bacteremia. Wound cultures are pending. Flu negative. CXR normal. 2. Bilateral LE wound and buttock wounds - pending cultures, Dr. Michelle consulted again after performing debridement at last hospitalization. Difficult to ascertain whether true infection. Cultures with minimal inflammatory cells, however patient presented with fevers and leukocytosis. Enterococcus almost assuredly a colonizer. Follow up cultures and continue cefepime for now. Bump in leukocytosis likely reactive to debridement. Follow. 3. ESRD on HD - renally dose antibiotics as appropriate Recs: - continue cefepime 2g q24h for now given GNR on gram stain of RLE culture. Fevers have abated, will hold off on broadening for now. Wounds without significant PMNs - follow up on wound care/debridement - recommend obtaining skin biopsy to determine true etiology of wounds - calciphylaxis vs pyoderma - Follow up cultures. Thank you for the consult, we will continue to follow. Flakita Negrete MD [facility] ([facility]) M: [phone] O: [phone] F: [phone] Subjective Date of service: 08/27/19 Interval history: Now afebrile. Small increase in white count. Otherwise symptoms unchanged. Objective - Exam Narrative Exam: Constitutional: Alert, cooperative. No acute distress Head, Ears, Nose: Normocephalic, atraumatic. External ears, nose normal Eyes: Conjunctivae/corneas clear. No icterus. No ptosis. Neck: Supple, no meningeal signs Oral: dentition fair, no thrush Cardiovascular: S1, S2 normal. L permacath Respiratory: Good air entry, clear to auscultation bilaterally GI: Soft, non-tender; bowel sounds normal. No peritoneal signs. Musculoskeletal: No pedal edema, no cyanosis. b/l leg wounds, erosive Skin: No rash or abscess Hem/Lymphatic: No palpable cervical or supraclavicular nodes. No lymphangitis Psych: Mood ok. Affect normal Neurological: Awake, alert, oriented. No gross abnormality - Constitutional Vitals: Vital Signs Temp Pulse Resp BP Pulse Ox 97.6 F 85 18 122/84 99 08/27/19 05:18 08/27/19 05:18 08/27/19 05:18 08/27/19 05:18 08/26/19 16:56 Temperature -Last 24 Hours Temperature 97.6 F Temperature 97.8 F Temperature 97.9 F Temperature 97.9 F Temperature 97.9 F - Labs CBC & Chem 7: 08/27/19 03:39 08/27/19 03:39 Labs: Abnormal lab results 08/26/19 08/26/19 08/26/19 Range/Units 13:20 16:20 17:03 WBC (4.5-11.0) K/mm3 RBC (3.65-5.03) M/mm3 Hgb (10.1-14.3) gm/dl Hct (30.3-42.9) % RDW (13.2-15.2) % Seg Neuts % (Manual) (40.0-70.0) % Lymphocytes % (Manual) (13.4-35.0) % Nucleated RBC % (0.0-0.9) % Seg Neutrophils # Man (1.8-7.7) K/mm3 Sodium (137-145) mmol/L Chloride (98-107) mmol/L Carbon Dioxide (22-30) mmol/L BUN (7-17) mg/dL Creatinine (0.7-1.2) mg/dL Glucose (65-100) mg/dL POC Glucose 178 H 185 H (70-105) Lactic Acid 3.30 H* (0.7-2.0) mmol/L Calcium (8.4-10.2) mg/dL 08/26/19 08/26/19 08/27/19 Range/Units 20:08 21:30 03:39 WBC 22.7 H (4.5-11.0) K/mm3 RBC 3.27 L (3.65-5.03) M/mm3 Hgb 9.1 L (10.1-14.3) gm/dl Hct 29.7 L (30.3-42.9) % RDW 18.4 H (13.2-15.2) % Seg Neuts % (Manual) 91.0 H (40.0-70.0) % Lymphocytes % (Manual) 7.0 L (13.4-35.0) % Nucleated RBC % 1.0 H (0.0-0.9) % Seg Neutrophils # Man 20.7 H (1.8-7.7) K/mm3 Sodium (137-145) mmol/L Chloride (98-107) mmol/L Carbon Dioxide (22-30) mmol/L BUN (7-17) mg/dL Creatinine (0.7-1.2) mg/dL Glucose (65-100) mg/dL POC Glucose 210 H (70-105) Lactic Acid 4.40 H* (0.7-2.0) mmol/L Calcium (8.4-10.2) mg/dL 08/27/19 08/27/19 08/27/19 Range/Units 03:39 03:39 10:07 WBC (4.5-11.0) K/mm3 RBC (3.65-5.03) M/mm3 Hgb (10.1-14.3) gm/dl Hct (30.3-42.9) % RDW (13.2-15.2) % Seg Neuts % (Manual) (40.0-70.0) % Lymphocytes % (Manual) (13.4-35.0) % Nucleated RBC % (0.0-0.9) % Seg Neutrophils # Man (1.8-7.7) K/mm3 Sodium 132 L (137-145) mmol/L Chloride 97.1 L (98-107) mmol/L Carbon Dioxide 19 L (22-30) mmol/L BUN 36 H (7-17) mg/dL Creatinine 5.5 H (0.7-1.2) mg/dL Glucose 219 H (65-100) mg/dL POC Glucose (70-105) Lactic Acid 4.20 H* 3.20 H* (0.7-2.0) mmol/L Calcium 8.3 L (8.4-10.2) mg/dL
--- NOTE | 2019-08-27 12:56 | Progress Note ---
Assessment and Plan Assessment and plan: --Bilateral LE wound infection: Wound care,f/u surgery evaln and rec --Sepsis: Sec to wounfd infection IV fluids.antibiotics f/u cultures GNR/GNR2 ,enterococcus ID following, Cefepime --Lactic Acidosis:due to sepsis --Calciphylaxis/ Pyoderma: Supportive care,possible skin biopsy wound care --ESRD: HD per schedule. Nephrology following --[place] of chronic Disease --Morbid obesity: BMI49.1 --Severe Malnutrition/hypoalbuminemia: Nutrition consult History Interval history: Patient seen and examined Patient feels better Vitals noted Hospitalist Physical - Constitutional Vitals: Temp Pulse Resp BP Pulse Ox 97.5 F L 84 16 152/105 100 08/27/19 11:39 08/27/19 11:39 08/27/19 11:39 08/27/19 11:39 08/27/19 11:39 General appearance: Present: no acute distress, well-nourished, obese - EENT Eyes: Present: PERRL, EOM intact - Neck Neck: Present: supple, normal ROM - Respiratory Respiratory effort: normal Respiratory: bilateral: diminished, negative: rales, rhonchi, wheezing - Cardiovascular Rhythm: regular Heart Sounds: Present: S1 & S2 - Extremities Extremities: no ischemia, abnormal (multiple wounds and ulcers dressing in place) - Abdominal General gastrointestinal: soft, non-tender, non-distended, normal bowel sounds - Integumentary Integumentary: Present: clear, warm - Psychiatric Psychiatric: appropriate mood/affect, cooperative - Neurologic Neurologic: CNII-XII intact, moves all extremities Results - Labs CBC & Chem 7: 08/27/19 03:39 08/27/19 03:39 Labs: Laboratory Last Values WBC 22.7 K/mm3 (4.5-11.0) H 08/27/19 03:39 RBC 3.27 M/mm3 (3.65-5.03) L 08/27/19 03:39 Hgb 9.1 gm/dl (10.1-14.3) L 08/27/19 03:39 Hct 29.7 % (30.3-42.9) L 08/27/19 03:39 MCV 91 fl (79-97) 08/27/19 03:39 MCH 28 pg (28-32) 08/27/19 03:39 MCHC 31 % (30-34) 08/27/19 03:39 RDW 18.4 % (13.2-15.2) H 08/27/19 03:39 Plt Count 256 K/mm3 (140-440) 08/27/19 03:39 Lymph % (Auto) 6.4 % (13.4-35.0) L 08/25/19 23:03 [place] % (Auto) 6.1 % (0.0-7.3) 08/25/19 23:03 Eos % (Auto) 4.1 % (0.0-4.3) 08/25/19 23:03 Baso % (Auto) 0.6 % (0.0-1.8) 08/25/19 23:03 Lymph # 1.2 K/mm3 (1.2-5.4) 08/25/19 23:03 [place] # 1.1 K/mm3 (0.0-0.8) H 08/25/19 23:03 Eos # 0.8 K/mm3 (0.0-0.4) H 08/25/19 23:03 Baso # 0.1 K/mm3 (0.0-0.1) 08/25/19 23:03 Add Manual Diff Complete 08/27/19 03:39 Total Counted 100 08/27/19 03:39 Seg Neutrophils % 82.8 % (40.0-70.0) H 08/25/19 23:03 Seg Neuts % (Manual) 91.0 % (40.0-70.0) H 08/27/19 03:39 Band Neutrophils % 0 % 08/27/19 03:39 Lymphocytes % (Manual) 7.0 % (13.4-35.0) L 08/27/19 03:39 Reactive Lymphs % (Man) 0 % 08/27/19 03:39 Monocytes % (Manual) 2.0 % (0.0-7.3) 08/27/19 03:39 Eosinophils % (Manual) 0 % (0.0-4.3) 08/27/19 03:39 Basophils % (Manual) 0 % (0.0-1.8) 08/27/19 03:39 Metamyelocytes % 0 % 08/27/19 03:39 Myelocytes % 0 % 08/27/19 03:39 Promyelocytes % 0 % 08/27/19 03:39 Blast Cells % 0 % 08/27/19 03:39 Nucleated RBC % 1.0 % (0.0-0.9) H 08/27/19 03:39 Seg Neutrophils # 15.5 K/mm3 (1.8-7.7) H 08/25/19 23:03 Seg Neutrophils # Man 20.7 K/mm3 (1.8-7.7) H 08/27/19 03:39 Band Neutrophils # 0.0 K/mm3 08/27/19 03:39 Lymphocytes # (Manual) 1.6 K/mm3 (1.2-5.4) 08/27/19 03:39 Abs React Lymphs (Man) 0.0 K/mm3 08/27/19 03:39 Monocytes # (Manual) 0.5 K/mm3 (0.0-0.8) 08/27/19 03:39 Eosinophils # (Manual) 0.0 K/mm3 (0.0-0.4) 08/27/19 03:39 Basophils # (Manual) 0.0 K/mm3 (0.0-0.1) 08/27/19 03:39 Metamyelocytes # 0.0 K/mm3 08/27/19 03:39 Myelocytes # 0.0 K/mm3 08/27/19 03:39 Promyelocytes # 0.0 K/mm3 08/27/19 03:39 Blast Cells # 0.0 K/mm3 08/27/19 03:39 WBC Morphology Not Reportable 08/27/19 03:39 Hypersegmented Neuts Not Reportable 08/27/19 03:39 Hyposegmented Neuts Not Reportable 08/27/19 03:39 Hypogranular Neuts Not Reportable 08/27/19 03:39 Smudge Cells Not Reportable 08/27/19 03:39 Toxic Granulation Not Reportable 08/27/19 03:39 Toxic Vacuolation Not Reportable 08/27/19 03:39 Dohle Bodies Not Reportable 08/27/19 03:39 Pelger-Huet Anomaly Not Reportable 08/27/19 03:39 Sara Rods Not Reportable 08/27/19 03:39 Platelet Estimate Consistent w auto 08/27/19 03:39 Clumped Platelets Not Reportable 08/27/19 03:39 Plt Clumps, EDTA Not Reportable 08/27/19 03:39 Large Platelets Few 08/27/19 03:39 Giant Platelets Not Reportable 08/27/19 03:39 Platelet Satelliting Not Reportable 08/27/19 03:39 Plt Morphology Comment Not Reportable 08/27/19 03:39 RBC Morphology Not Reportable 08/27/19 03:39 Dimorphic RBCs Not Reportable 08/27/19 03:39 Polychromasia Rare 08/27/19 03:39 Hypochromasia Not Reportable 08/27/19 03:39 Poikilocytosis 1+ 08/27/19 03:39 Anisocytosis 1+ 08/27/19 03:39 Microcytosis Not Reportable 08/27/19 03:39 Macrocytosis Few 08/27/19 03:39 Spherocytes Not Reportable 08/27/19 03:39 Pappenheimer Bodies Not Reportable 08/27/19 03:39 Sickle Cells Not Reportable 08/27/19 03:39 Target Cells 1+ 08/27/19 03:39 Tear Drop Cells Not Reportable 08/27/19 03:39 Ovalocytes Not Reportable 08/27/19 03:39 Helmet Cells Not Reportable 08/27/19 03:39 [place] Bodies Not Reportable 08/27/19 03:39 [place] Rings Not Reportable 08/27/19 03:39 Raciel Cells Not Reportable 08/27/19 03:39 Bite Cells Not Reportable 08/27/19 03:39 Crenated Cell Not Reportable 08/27/19 03:39 Elliptocytes Not Reportable 08/27/19 03:39 Acanthocytes (Spur) Not Reportable 08/27/19 03:39 Rouleaux Not Reportable 08/27/19 03:39 Hemoglobin C Crystals Not Reportable 08/27/19 03:39 Schistocytes Rare 08/27/19 03:39 Malaria parasites Not Reportable 08/27/19 03:39 Adarsh Bodies Not Reportable 08/27/19 03:39 Hem Pathologist Commnt No 08/27/19 03:39 APTT 31.8 Sec. (24.2-36.6) 08/25/19 23:03 Sodium 132 mmol/L (137-145) L 08/27/19 03:39 Potassium 4.0 mmol/L (3.6-5.0) 08/27/19 03:39 Chloride 97.1 mmol/L (98-107) L 08/27/19 03:39 Carbon Dioxide 19 mmol/L (22-30) L 08/27/19 03:39 Anion Gap 20 mmol/L 08/27/19 03:39 BUN 36 mg/dL (7-17) H 08/27/19 03:39 Creatinine 5.5 mg/dL (0.7-1.2) H 08/27/19 03:39 Estimated GFR 10 ml/min 08/27/19 03:39 BUN/Creatinine Ratio 7 % 08/27/19 03:39 Glucose 219 mg/dL (65-100) H 08/27/19 03:39 POC Glucose 210 (70-105) H 08/26/19 21:30 Hemoglobin A1c 6.4 % (4-6) H 08/25/19 23:03 Lactic Acid 3.20 mmol/L (0.7-2.0) H* 08/27/19 10:07 Calcium 8.3 mg/dL (8.4-10.2) L 08/27/19 03:39 Total Bilirubin 1.70 mg/dL (0.1-1.2) H 08/25/19 23:03 AST 13 units/L (5-40) 08/25/19 23:03 ALT 8 units/L (7-56) 08/25/19 23:03 Alkaline Phosphatase 167 units/L (35-129) H 08/25/19 23:03 Total Protein 7.7 g/dL (6.3-8.2) 08/25/19 23:03 Albumin 2.3 g/dL (3.9-5) L 08/25/19 23:03 Albumin/Globulin Ratio 0.4 % 08/25/19 23:03 Influenza A (Rapid) Negative (Negative) 08/25/19 00:07 Influenza B (Rapid) Negative (Negative) 08/25/19 00:07 Active Medications - Current Medications Current Medications: Generic Name Dose Route Start Last Admin Trade Name Freq PRN Reason Stop Dose Admin Acetaminophen 650 mg 08/26/19 01:21 Tylenol PO Q4H PRN Pain MILD(1-3)/Fever >100.5/[place] Albuterol 2.5 mg 08/26/19 02:59 Proventil IH Q3HRT PRN Shortness Of Breath Dextrose 0 ml 08/26/19 02:59 D50w (25gm) Syringe IV Q30MIN PRN Hypoglycemia Epoetin Arias 10,000 unit 08/27/19 09:35 Procrit IV AMBER PRN hemodialysis Heparin Sodium (Porcine) 5,000 unit 08/26/19 10:00 08/27/19 11:03 Heparin SUB-Q 5,000 unit Q12HR WALT Administration Heparin Sodium (Porcine) 5,000 unit 08/27/19 09:35 Heparin IV AMBER PRN hemodialysis Cefepime HCl 1 gm in 100 mls @ 200 mls/hr 08/26/19 18:00 08/26/19 17:15 Cefepime/Ns 1 Gm/100 Ml IV 200 mls/hr QPM WALT Administration Sodium Chloride 100 mls @ 999 mls/hr 08/27/19 09:35 Nacl 0.9% IV AMBER PRN Hypotension Insulin Human Lispro 0 unit 08/26/19 07:30 08/27/19 11:30 Humalog SUB-Q 3 unit ACHS WALT Administration Protocol Ondansetron HCl 4 mg 08/26/19 01:21 Zofran IV Q8H PRN Nausea And Vomiting Pantoprazole Sodium 40 mg 08/27/19 10:00 08/27/19 11:03 Protonix PO 40 mg DAILY WALT Administration Sodium Chloride 10 ml 08/26/19 10:00 08/27/19 11:04 Sodium Chloride Flush Syringe 10 Ml IV 10 ml BID WALT Administration Sodium Chloride 10 ml 08/26/19 01:21 Sodium Chloride Flush Syringe 10 Ml IV PRN PRN LINE FLUSH
[2019-08-27] MEDS: EPOETIN ALFA 10,000 UNIT/1 ML INJ IV PRN (15:49)
[2019-08-27] MEDS: CEFEPIME/NS 1 GM/100 ML 1 GM/100 ML BAG IV SCH (21:32)
[2019-08-27] MEDS: cloNIDine 0.2 MG TAB PO SCH (22:48)
[2019-08-27] MEDS: LACTULOSE 20 GM/30 ML ORAL LIQD PO SCH (22:48)
[2019-08-28] MEDS: INSULIN LISPRO 100 UNIT/ML SUB-Q SCH ×4 (07:30→22:58)
[2019-08-28] MEDS: INSULIN NPH/REGULAR 70/30 INJ SUB-Q SCH ×2 (08:00→17:00)
[2019-08-28 08:28] LABS: Hematocrit 28.7 % (30.3-42.9); Hemoglobin 8.9 gm/dl (10.1-14.3); Mean Corpuscular HGB Conc 31 % (30-34); Mean Corpuscular Volume 92 fl (79-97); Platelet Count 211 K/mm3 (140-440); Red Blood Count 3.14 M/mm3 (3.65-5.03); Red Cell Distribution Width 18.5 % (13.2-15.2)
[2019-08-28 08:44] LABS: Albumin 2.1 g/dL (3.9-5); Calcium 8.5 mg/dL (8.4-10.2)
[2019-08-28] MEDS: LACTULOSE 20 GM/30 ML ORAL LIQD PO SCH ×2 (09:23→22:58)
[2019-08-28] MEDS: CHOLECALCIFEROL (VIT D3) 400 UNIT TAB PO SCH (09:24)
[2019-08-28] MEDS: PANTOPRAZOLE 40 MG TAB PO SCH (09:25)
[2019-08-28] MEDS: cloNIDine 0.2 MG TAB PO SCH ×2 (09:25→22:58)
[2019-08-28] MEDS: HEPARIN 5,000 UNIT/1 ML VIAL SUB-Q SCH ×2 (09:26→22:58)
[2019-08-28 09:44] LABS: Basophils % (Manual) 0 % (0.0-1.8); Total Cells Counted 100
[2019-08-28 09:45] LABS: Anisocytosis 1+; Large Platelets Few; Macrocytosis Few; Ovalocytes Rare; Platelet Estimate Consistent w Auto; Schistocytes Rare; Target Cells 1+
[2019-08-28] MEDS ORDERED: ERGOCALCIFEROL 800 UNIT PO SCH (10:00)
--- NOTE | 2019-08-28 15:28 | Progress Note ---
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 * Lactic acidosis * Anemia secondary to ESRD * Medical noncompliance * Hx of enteroccocal bacteremia Plan: * Continue HD MWF schedule * UF as tolerated * Monitor lytes and volume status closely * Abx per ID * Surgery following * Epogen TIW prn * Renal diet * Dose medications for renal function Subjective Date of service: 08/28/19 Interval history: Patient has no complaints today Objective - Vital Signs Vital signs: Vital Signs - 12hr 08/28/19 08/28/19 06:24 12:21 Temperature 97.0 F L 97.8 F Pulse Rate 97 H 87 Respiratory 18 20 Rate Blood Pressure 126/75 101/67 O2 Sat by Pulse 99 98 Oximetry - General Appearance General appearance: well-developed, well-nourished EENT: ATNC Respiratory: Present: Decreased Breath Sounds Cardiology: regular, S1S2 Gastrointestinal: obese Integumentary: other (bilateral LE bandaged) Neurologic: alert and oriented x3 Psychiatric: cooperative - Lab 08/28/19 07:14 08/28/19 07:14 Most recent lab results Calcium 8.5 mg/dL (8.4-10.2) 08/28/19 07:14 Medications & Allergies - Medications Allergies/Adverse Reactions: Allergies No Known Allergies Allergy (Verified 03/12/19 12:23) Home Medications: Home Medications Medication Instructions Recorded Confirmed Last Taken Type Ergocalciferol(Vitamin D2)(Nf) 800 unit PO DAILY 07/06/19 08/13/19 1 Day Ago His tory [Vitamin D (Nf)] ~08/12/19 cloNIDine [Catapres] 0.2 mg PO BID 07/06/19 08/13/19 08/13/19 History Pantoprazole [Protonix TAB] 40 mg PO QDAY #30 tablet 07/14/19 08/13/19 08/13/19 Rx oxyCODONE ER [oxyCONTIN ER] 10 mg PO Q12HR PRN #30 tablet 07/28/19 08/13/19 08/12/19 Rx Insulin NPH/Regular [NovoLIN 70/30] 5 unit SUB-Q BIDDIAB units 08/13/19 Unknown Rx Insulin NPH/Regular [NovoLIN 70/30] 5 unit SUB-Q BIDDIAB #10 ml 08/13/19 Unknown Rx Lactulose [Cephulac] 20 gm PO BID oral.liqd 08/13/19 Unknown Rx Pantoprazole [Protonix TAB] 40 mg PO QDAY tablet 08/13/19 Unknown Rx oxyCODONE ER [oxyCONTIN ER] 10 mg PO Q12HR PRN tablet 08/13/19 Unknown Rx Active Medications: Generic Name Dose Route Start Last Admin Trade Name Freq PRN Reason Stop Dose Admin Acetaminophen 650 mg 08/26/19 01:21 Tylenol PO Q4H PRN Pain MILD(1-3)/Fever >100.5/[place] Albuterol 2.5 mg 08/26/19 02:59 Proventil IH Q3HRT PRN Shortness Of Breath Cholecalciferol 800 unit 08/28/19 10:00 08/28/19 09:24 Vitamin D3 PO 800 unit QDAY WALT Administration Clonidine HCl 0.2 mg 08/27/19 22:00 08/28/19 09:25 Catapres PO 0.2 mg BID WALT Administration Dextrose 0 ml 08/26/19 02:59 D50w (25gm) Syringe IV Q30MIN PRN Hypoglycemia Epoetin Arias 10,000 unit 08/27/19 09:35 08/27/19 15:49 Procrit IV 10,000 unit AMBER PRN Administration hemodialysis Heparin Sodium (Porcine) 5,000 unit 08/26/19 10:00 08/28/19 09:26 Heparin SUB-Q 5,000 unit Q12HR WALT Administration Heparin Sodium (Porcine) 5,000 unit 08/27/19 09:35 Heparin IV AMBER PRN hemodialysis Cefepime HCl 1 gm in 100 mls @ 200 mls/hr 08/26/19 18:00 08/27/19 21:32 Cefepime/Ns 1 Gm/100 Ml IV 200 mls/hr QPM WALT Administration Sodium Chloride 100 mls @ 999 mls/hr 08/27/19 09:35 Nacl 0.9% IV AMBER PRN Hypotension Insulin Human Isoph/Insulin Regular 5 unit 08/28/19 08:00 08/28/19 08:00 Humulin 70/30 SUB-Q 5 unit BIDDIAB WALT Administration Insulin Human Lispro 0 unit 08/26/19 07:30 08/28/19 11:30 Humalog SUB-Q 3 unit ACHS WALT Administration Protocol Lactulose 20 gm 08/27/19 22:00 08/28/19 09:23 Cephulac PO Not Given BID WALT Ondansetron HCl 4 mg 08/26/19 01:21 Zofran IV Q8H PRN Nausea And Vomiting Pantoprazole Sodium 40 mg 08/27/19 10:00 08/28/19 09:25 Protonix PO 40 mg DAILY WALT Administration Sodium Chloride 10 ml 08/26/19 10:00 08/28/19 09:37 Sodium Chloride Flush Syringe 10 Ml IV 10 ml BID WALT Administration Sodium Chloride 10 ml 08/26/19 01:21 Sodium Chloride Flush Syringe 10 Ml IV PRN PRN LINE FLUSH
--- NOTE | 2019-08-28 17:18 | Progress Note ---
Assessment and Plan Assessment and plan: --Bilateral LE wound infection: Her buttock wound infection, Wound care, [place] debridement and IV antibiotics --Sepsis: Sec to wounfd infection, IV fluids.antibiotics f/u cultures GNR/GNR2 ,enterococcus sensitivities Continue Cefepime --Lactic Acidosis:due to sepsis --Calciphylaxis/ Pyoderma: Supportive care,possible skin biopsy,wound care --ESRD: HD per schedule.,Nephrology following --[place]mem[place] of chronic Disease --Morbid obesity: BMI49.1 Advised weight reduction and medically stable --Severe Malnutrition/hypoalbuminemia:, Nutrition consult --DVT prophylaxis; Lovenox --Full code Monitor closely and adjust management as needed Patient has multiple medical problems with multiple wound infections Critically ill , poor prognosis DC planning per case management Consults and recommendations noted and appreciated Plan of care reviewed with the patient and multiple family members at the bedside Answered all their questions History Interval history: Patient seen and examined medical records reviewed Patient feels slightly better complaints of generalized body pains Multiple wound cultures positive, sensitivities noted Vital signs reviewed Hospitalist Physical - Constitutional Vitals: Temp Pulse Resp BP Pulse Ox 97.8 F 87 20 101/67 98 08/28/19 12:21 08/28/19 12:21 08/28/19 12:21 08/28/19 12:21 08/28/19 12:21 General appearance: Present: no acute distress, well-nourished, obese - EENT Eyes: Present: PERRL, EOM intact - Neck Neck: Present: supple, normal ROM - Respiratory Respiratory effort: normal Respiratory: bilateral: diminished, rhonchi, negative: rales, wheezing - Cardiovascular Rhythm: regular Heart Sounds: Present: S1 & S2 - Extremities Extremities: no ischemia, abnormal (bilateral lower extremity wounds status post debridement and dressing) - Abdominal General gastrointestinal: soft, non-tender, non-distended, normal bowel sounds - Integumentary Integumentary: Present: clear, warm - Psychiatric Psychiatric: appropriate mood/affect, cooperative - Neurologic Neurologic: CNII-XII intact, moves all extremities Results - Labs CBC & Chem 7: 08/28/19 07:14 08/28/19 07:14 Labs: Laboratory Last Values WBC 16.7 K/mm3 (4.5-11.0) H 08/28/19 07:14 RBC 3.14 M/mm3 (3.65-5.03) L 08/28/19 07:14 Hgb 8.9 gm/dl (10.1-14.3) L 08/28/19 07:14 Hct 28.7 % (30.3-42.9) L 08/28/19 07:14 MCV 92 fl (79-97) 08/28/19 07:14 MCH 28 pg (28-32) 08/28/19 07:14 MCHC 31 % (30-34) 08/28/19 07:14 RDW 18.5 % (13.2-15.2) H 08/28/19 07:14 Plt Count 211 K/mm3 (140-440) 08/28/19 07:14 Lymph % (Auto) 6.4 % (13.4-35.0) L 08/25/19 23:03 [place] % (Auto) 6.1 % (0.0-7.3) 08/25/19 23:03 Eos % (Auto) 4.1 % (0.0-4.3) 08/25/19 23:03 Baso % (Auto) 0.6 % (0.0-1.8) 08/25/19 23:03 Lymph # 1.2 K/mm3 (1.2-5.4) 08/25/19 23:03 [place] # 1.1 K/mm3 (0.0-0.8) H 08/25/19 23:03 Eos # 0.8 K/mm3 (0.0-0.4) H 08/25/19 23:03 Baso # 0.1 K/mm3 (0.0-0.1) 08/25/19 23:03 Add Manual Diff Complete 08/28/19 07:14 Total Counted 100 08/28/19 07:14 Seg Neutrophils % 82.8 % (40.0-70.0) H 08/25/19 23:03 Seg Neuts % (Manual) 91.0 % (40.0-70.0) H 08/28/19 07:14 Band Neutrophils % 0 % 08/28/19 07:14 Lymphocytes % (Manual) 4.0 % (13.4-35.0) L 08/28/19 07:14 Reactive Lymphs % (Man) 0 % 08/28/19 07:14 Monocytes % (Manual) 3.0 % (0.0-7.3) 08/28/19 07:14 Eosinophils % (Manual) 2.0 % (0.0-4.3) 08/28/19 07:14 Basophils % (Manual) 0 % (0.0-1.8) 08/28/19 07:14 Metamyelocytes % 0 % 08/28/19 07:14 Myelocytes % 0 % 08/28/19 07:14 Promyelocytes % 0 % 08/28/19 07:14 Blast Cells % 0 % 08/28/19 07:14 Nucleated RBC % 1.0 % (0.0-0.9) H 08/28/19 07:14 Seg Neutrophils # 15.5 K/mm3 (1.8-7.7) H 08/25/19 23:03 Seg Neutrophils # Man 15.2 K/mm3 (1.8-7.7) H 08/28/19 07:14 Band Neutrophils # 0.0 K/mm3 08/28/19 07:14 Lymphocytes # (Manual) 0.7 K/mm3 (1.2-5.4) L 08/28/19 07:14 Abs React Lymphs (Man) 0.0 K/mm3 08/28/19 07:14 Monocytes # (Manual) 0.5 K/mm3 (0.0-0.8) 08/28/19 07:14 Eosinophils # (Manual) 0.3 K/mm3 (0.0-0.4) 08/28/19 07:14 Basophils # (Manual) 0.0 K/mm3 (0.0-0.1) 08/28/19 07:14 Metamyelocytes # 0.0 K/mm3 08/28/19 07:14 Myelocytes # 0.0 K/mm3 08/28/19 07:14 Promyelocytes # 0.0 K/mm3 08/28/19 07:14 Blast Cells # 0.0 K/mm3 08/28/19 07:14 WBC Morphology Not Reportable 08/28/19 07:14 Hypersegmented Neuts Not Reportable 08/28/19 07:14 Hyposegmented Neuts Not Reportable 08/28/19 07:14 Hypogranular Neuts Not Reportable 08/28/19 07:14 Smudge Cells Not Reportable 08/28/19 07:14 Toxic Granulation Not Reportable 08/28/19 07:14 Toxic Vacuolation Not Reportable 08/28/19 07:14 Dohle Bodies Not Reportable 08/28/19 07:14 Pelger-Huet Anomaly Not Reportable 08/28/19 07:14 Sara Rods Not Reportable 08/28/19 07:14 Platelet Estimate Consistent w auto 08/28/19 07:14 Clumped Platelets Not Reportable 08/28/19 07:14 Plt Clumps, EDTA Not Reportable 08/28/19 07:14 Large Platelets Few 08/28/19 07:14 Giant Platelets Not Reportable 08/28/19 07:14 Platelet Satelliting Not Reportable 08/28/19 07:14 Plt Morphology Comment Not Reportable 08/28/19 07:14 RBC Morphology Not Reportable 08/28/19 07:14 Dimorphic RBCs Not Reportable 08/28/19 07:14 Polychromasia Rare 08/28/19 07:14 Hypochromasia Not Reportable 08/28/19 07:14 Poikilocytosis Not Reportable 08/28/19 07:14 Anisocytosis 1+ 08/28/19 07:14 Microcytosis Not Reportable 08/28/19 07:14 Macrocytosis Few 08/28/19 07:14 Spherocytes Not Reportable 08/28/19 07:14 Pappenheimer Bodies Not Reportable 08/28/19 07:14 Sickle Cells Not Reportable 08/28/19 07:14 Target Cells 1+ 08/28/19 07:14 Tear Drop Cells Not Reportable 08/28/19 07:14 Ovalocytes Rare 08/28/19 07:14 Helmet Cells Not Reportable 08/28/19 07:14 [place] Bodies Not Reportable 08/28/19 07:14 [place] Rings Not Reportable 08/28/19 07:14 [place] Cells Not Reportable 08/28/19 07:14 Bite Cells Not Reportable 08/28/19 07:14 Crenated Cell Not Reportable 08/28/19 07:14 Elliptocytes Not Reportable 08/28/19 07:14 Acanthocytes (Spur) Not Reportable 08/28/19 07:14 Rouleaux Not Reportable 08/28/19 07:14 Hemoglobin C Crystals Not Reportable 08/28/19 07:14 Schistocytes Rare 08/28/19 07:14 Malaria parasites Not Reportable 08/28/19 07:14 Adarsh Bodies Not Reportable 08/28/19 07:14 Hem Pathologist Commnt No 08/28/19 07:14 APTT 31.8 Sec. (24.2-36.6) 08/25/19 23:03 Sodium 133 mmol/L (137-145) L 08/28/19 07:14 Potassium 4.4 mmol/L (3.6-5.0) 08/28/19 07:14 Chloride 97.0 mmol/L (98-107) L 08/28/19 07:14 Carbon Dioxide 17 mmol/L (22-30) L 08/28/19 07:14 Anion Gap 23 mmol/L 08/28/19 07:14 BUN 27 mg/dL (7-17) H 08/28/19 07:14 Creatinine 4.3 mg/dL (0.7-1.2) H 08/28/19 07:14 Estimated GFR 14 ml/min 08/28/19 07:14 BUN/Creatinine Ratio 6 % 08/28/19 07:14 Glucose 206 mg/dL (65-100) H 08/28/19 07:14 POC Glucose 196 (70-105) H 08/28/19 16:51 Hemoglobin A1c 6.4 % (4-6) H 08/25/19 23:03 Lactic Acid 3.70 mmol/L (0.7-2.0) H* 08/27/19 19:42 Calcium 8.5 mg/dL (8.4-10.2) 08/28/19 07:14 Total Bilirubin 1.30 mg/dL (0.1-1.2) H 08/28/19 07:14 AST 56 units/L (5-40) H 08/28/19 07:14 ALT 19 units/L (7-56) 08/28/19 07:14 Alkaline Phosphatase 189 units/L (35-129) H 08/28/19 07:14 Total Protein 7.9 g/dL (6.3-8.2) 08/28/19 07:14 Albumin 2.1 g/dL (3.9-5) L 08/28/19 07:14 Albumin/Globulin Ratio 0.4 % 08/28/19 07:14 Influenza A (Rapid) Negative (Negative) 08/25/19 00:07 Influenza B (Rapid) Negative (Negative) 08/25/19 00:07 Active Medications - Current Medications Current Medications: Generic Name Dose Route Start Last Admin Trade Name Freq PRN Reason Stop Dose Admin Acetaminophen 650 mg 08/26/19 01:21 Tylenol PO Q4H PRN Pain MILD(1-3)/Fever >100.5/[place] Albuterol 2.5 mg 08/26/19 02:59 Proventil IH Q3HRT PRN Shortness Of Breath Cholecalciferol 800 unit 08/28/19 10:00 08/28/19 09:24 Vitamin D3 PO 800 unit QDAY WALT Administration Clonidine HCl 0.2 mg 08/27/19 22:00 08/28/19 09:25 Catapres PO 0.2 mg BID WALT Administration Dextrose 0 ml 08/26/19 02:59 D50w (25gm) Syringe IV Q30MIN PRN Hypoglycemia Epoetin Arias 10,000 unit 08/27/19 09:35 08/27/19 15:49 Procrit IV 10,000 unit AMBER PRN Administration hemodialysis Heparin Sodium (Porcine) 5,000 unit 08/26/19 10:00 08/28/19 09:26 Heparin SUB-Q 5,000 unit Q12HR WALT Administration Heparin Sodium (Porcine) 5,000 unit 08/27/19 09:35 Heparin IV AMBER PRN hemodialysis Cefepime HCl 1 gm in 100 mls @ 200 mls/hr 08/26/19 18:00 08/27/19 21:32 Cefepime/Ns 1 Gm/100 Ml IV 200 mls/hr QPM WALT Administration Sodium Chloride 100 mls @ 999 mls/hr 08/27/19 09:35 Nacl 0.9% IV AMBER PRN Hypotension Insulin Human Isoph/Insulin Regular 5 unit 08/28/19 08:00 08/28/19 08:00 Humulin 70/30 SUB-Q 5 unit BIDDIAB WALT Administration Insulin Human Lispro 0 unit 08/26/19 07:30 08/28/19 11:30 Humalog SUB-Q 3 unit ACHS WALT Administration Protocol Lactulose 20 gm 08/27/19 22:00 08/28/19 09:23 Cephulac PO Not Given BID WALT Ondansetron HCl 4 mg 08/26/19 01:21 Zofran IV Q8H PRN Nausea And Vomiting Pantoprazole Sodium 40 mg 08/27/19 10:00 08/28/19 09:25 Protonix PO 40 mg DAILY WALT Administration Sodium Chloride 10 ml 08/26/19 10:00 08/28/19 09:37 Sodium Chloride Flush Syringe 10 Ml IV 10 ml BID WALT Administration Sodium Chloride 10 ml 08/26/19 01:21 Sodium Chloride Flush Syringe 10 Ml IV PRN PRN LINE FLUSH Nutrition/Malnutrition Assess - Dietary Evaluation Nutrition/Malnutrition Findings: Nutrition Notes Start: 08/28/19 15:00 Freq: Status: Active Protocol: Document 08/28/19 15:00 RM (Rec: 08/28/19 15:20 RM [id number]) Nutrition Notes Need for Assessment generated from: MD Order Initial or Follow up Assessment Current Diagnosis COPD Other Pertinent Diagnosis ESRD on HD (M/W/F), Bilat LE infected diabetic ulcers, PVD, Liver disease Current Diet Renal Labs/Tests Reviewed Pertinent Medications Reviewed Height 5 ft 6 in Weight 137.9 kg [place] Body Weight (kg) 59.09 BMI 49.0 Subjective/Other Information Consulted for malnutrition. Pt and pt mother in room at time of visit. Pt asleep. Pt mother stated that [employer] pt appetite was "so so" and that she ate 2 meals w/1 snack daily. Stated that pt has not been eating her meals here except for cereal for breakfast and half a hamburger d/t disliking the diet. Noted preferences. Pt mother agreed to trial of Nepro. Unsure of pt dry wt. Burn Absent Trauma Absent Minimum of two criteria No #1 Nutrition Diagnosis Inadequate oral intake Etiology food preferences As Evidenced by Signs and Symptoms pt mother statement that pt has not been eating her meals Is patient on ventilator? No Is Patient Ambulatory and/or Out of Bed No REE-([facility]-confined to bed) 5355.274 Calculation Used for Recommendations [facility] Additional Notes Protein Needs: 118g (>1.2g/kg 98kg adjBW) Fluid Needs: 1 ml/kcal Nutrition Intervention Change Diet Order: Continue current Add Supplement/Snack (indicate name/kcal Nepro Butter Pecan 1 daily /protein ) Provides kCal: 425 Provides Protein (gm) 19 Goal #1 Meet at least 75% of calorie and protein needs via PO and ONS intakes Anticipated Discharge Needs: Renal diet Follow-Up By: 08/31/19 Additional Comments Follow for PO and ONS intakes
[2019-08-28] MEDS: CEFEPIME/NS 1 GM/100 ML 1 GM/100 ML BAG IV SCH (18:36)
[2019-08-28] MEDS ORDERED: diphenhydrAMINE 50 MG/ML VIAL IV ONE (22:57)
[2019-08-29] MEDS: LACTULOSE 20 GM/30 ML ORAL LIQD PO SCH ×3 (00:43→22:02)
[2019-08-29 07:09] LABS: Hematocrit 28.1 % (30.3-42.9); Hemoglobin 8.6 gm/dl (10.1-14.3); Mean Corpuscular HGB Conc 31 % (30-34); Mean Corpuscular Volume 90 fl (79-97); Platelet Count 283 K/mm3 (140-440); Red Blood Count 3.12 M/mm3 (3.65-5.03); Red Cell Distribution Width 18.6 % (13.2-15.2)
[2019-08-29 07:19] LABS: Calcium 8.6 mg/dL (8.4-10.2)
[2019-08-29] MEDS: INSULIN LISPRO 100 UNIT/ML SUB-Q SCH ×4 (08:35→22:02)
--- NOTE | 2019-08-29 09:06 | Progress Note ---
Assessment and Plan Assessment and plan: --Bilateral LE and buttock wound infection: Wound care, antibiotic antibiotics, ID following s/p surgical debridement and supportive care --Sepsis: Sec to wounfd infection, IV fluids.antibiotics f/u cultures Wound cultures Pseudomonas Proteus, Escherichia coli, ID following Continue Cefepime --Lactic Acidosis:due to sepsis --Calciphylaxis/ Pyoderma: Supportive care,possible skin biopsy,wound care --ESRD: HD per schedule.,Nephrology following --[place]mem[place] of chronic Disease --Morbid obesity: BMI49.1 Advised weight reduction and medically stable --Severe Malnutrition/hypoalbuminemia:, Nutrition consult --DVT prophylaxis; Lovenox --Full code Monitor clinically and adjust the management as needed Plan of care reviewed with the patient, family members at the bedside As well as patient's nurse Consults and recommendations noted and appreciated History Interval history: Patient Seen and examined medical records reviewed Patient feels slightly better no new complaints Vital signs noted Hospitalist Physical - Constitutional Vitals: Temp Pulse Resp BP Pulse Ox 97.2 F L 98 H 18 122/69 100 08/29/19 04:28 08/29/19 04:28 08/29/19 04:28 08/29/19 04:28 08/29/19 04:28 General appearance: Present: no acute distress, well-nourished, obese (morbidly obese) - EENT Eyes: Present: PERRL, EOM intact - Neck Neck: Present: supple, normal ROM - Respiratory Respiratory effort: normal Respiratory: bilateral: diminished, negative: rales, rhonchi, wheezing - Cardiovascular Rhythm: regular Heart Sounds: Present: S1 & S2 - Extremities Extremities: abnormal (bilateral lower extremity wound dressing in place) Extremity abnormal: edema - Abdominal General gastrointestinal: soft, non-tender, non-distended, normal bowel sounds - Integumentary Integumentary: Present: clear, warm - Psychiatric Psychiatric: appropriate mood/affect, cooperative - Neurologic Neurologic: CNII-XII intact, moves all extremities Results - Labs CBC & Chem 7: 08/29/19 06:29 08/29/19 06:29 Labs: Laboratory Last Values WBC 18.7 K/mm3 (4.5-11.0) H 08/29/19 06:29 RBC 3.12 M/mm3 (3.65-5.03) L 08/29/19 06:29 Hgb 8.6 gm/dl (10.1-14.3) L 08/29/19 06:29 Hct 28.1 % (30.3-42.9) L 08/29/19 06: MCV 90 fl (79-97) 08/29/19 06: MCH 28 pg (28-32) 08/29/19 06: MCHC 31 % (30-34) 08/29/19 06: RDW 18.6 % (13.2-15.2) H 08/29/19 06:29 Plt Count 283 K/mm3 (140-440) 08/29/19 06: Lymph % (Auto) 6.4 % (13.4-35.0) L 08/25/19 23:03 [place] % (Auto) 6.1 % (0.0-7.3) 08/25/19 23:03 Eos % (Auto) 4.1 % (0.0-4.3) 08/25/19 23:03 Baso % (Auto) 0.6 % (0.0-1.8) 08/25/19 23:03 Lymph # 1.2 K/mm3 (1.2-5.4) 08/25/19 23:03 [place] # 1.1 K/mm3 (0.0-0.8) H 08/25/19 23:03 Eos # 0.8 K/mm3 (0.0-0.4) H 08/25/19 23:03 Baso # 0.1 K/mm3 (0.0-0.1) 08/25/19 23:03 Add Manual Diff Complete 08/28/19 07:14 Total Counted 100 08/28/19 07:14 Seg Neutrophils % 82.8 % (40.0-70.0) H 08/25/19 23:03 Seg Neuts % (Manual) 91.0 % (40.0-70.0) H 08/28/19 07:14 Band Neutrophils % 0 % 08/28/19 07:14 Lymphocytes % (Manual) 4.0 % (13.4-35.0) L 08/28/19 07:14 Reactive Lymphs % (Man) 0 % 08/28/19 07:14 Monocytes % (Manual) 3.0 % (0.0-7.3) 08/28/19 07:14 Eosinophils % (Manual) 2.0 % (0.0-4.3) 08/28/19 07:14 Basophils % (Manual) 0 % (0.0-1.8) 08/28/19 07:14 Metamyelocytes % 0 % 08/28/19 07:14 Myelocytes % 0 % 08/28/19 07:14 Promyelocytes % 0 % 08/28/19 07:14 Blast Cells % 0 % 08/28/19 07:14 Nucleated RBC % 1.0 % (0.0-0.9) H 08/28/19 07:14 Seg Neutrophils # 15.5 K/mm3 (1.8-7.7) H 08/25/19 23:03 Seg Neutrophils # Man 15.2 K/mm3 (1.8-7.7) H 08/28/19 07:14 Band Neutrophils # 0.0 K/mm3 08/28/19 07:14 Lymphocytes # (Manual) 0.7 K/mm3 (1.2-5.4) L 08/28/19 07:14 Abs React Lymphs (Man) 0.0 K/mm3 08/28/19 07:14 Monocytes # (Manual) 0.5 K/mm3 (0.0-0.8) 08/28/19 07:14 Eosinophils # (Manual) 0.3 K/mm3 (0.0-0.4) 08/28/19 07:14 Basophils # (Manual) 0.0 K/mm3 (0.0-0.1) 08/28/19 07:14 Metamyelocytes # 0.0 K/mm3 08/28/19 07:14 Myelocytes # 0.0 K/mm3 08/28/19 07:14 Promyelocytes # 0.0 K/mm3 08/28/19 07:14 Blast Cells # 0.0 K/mm3 08/28/19 07:14 WBC Morphology Not Reportable 08/28/19 07:14 Hypersegmented Neuts Not Reportable 08/28/19 07:14 Hyposegmented Neuts Not Reportable 08/28/19 07:14 Hypogranular Neuts Not Reportable 08/28/19 07:14 Smudge Cells Not Reportable 08/28/19 07:14 Toxic Granulation Not Reportable 08/28/19 07:14 Toxic Vacuolation Not Reportable 08/28/19 07:14 Dohle Bodies Not Reportable 08/28/19 07:14 Pelger-Huet Anomaly Not Reportable 08/28/19 07:14 Sara Rods Not Reportable 08/28/19 07:14 Platelet Estimate Consistent w auto 08/28/19 07:14 Clumped Platelets Not Reportable 08/28/19 07:14 Plt Clumps, EDTA Not Reportable 08/28/19 07:14 Large Platelets Few 08/28/19 07:14 Giant Platelets Not Reportable 08/28/19 07:14 Platelet Satelliting Not Reportable 08/28/19 07:14 Plt Morphology Comment Not Reportable 08/28/19 07:14 RBC Morphology Not Reportable 08/28/19 07:14 Dimorphic RBCs Not Reportable 08/28/19 07:14 Polychromasia Rare 08/28/19 07:14 Hypochromasia Not Reportable 08/28/19 07:14 Poikilocytosis Not Reportable 08/28/19 07:14 Anisocytosis 1+ 08/28/19 07:14 Microcytosis Not Reportable 08/28/19 07:14 Macrocytosis Few 08/28/19 07:14 Spherocytes Not Reportable 08/28/19 07:14 Pappenheimer Bodies Not Reportable 08/28/19 07:14 Sickle Cells Not Reportable 08/28/19 07:14 Target Cells 1+ 08/28/19 07:14 Tear Drop Cells Not Reportable 08/28/19 07:14 Ovalocytes Rare 08/28/19 07:14 Helmet Cells Not Reportable 08/28/19 07:14 [place] Bodies Not Reportable 08/28/19 07:14 [place] Rings Not Reportable 08/28/19 07:14 [place] Cells Not Reportable 08/28/19 07:14 Bite Cells Not Reportable 08/28/19 07:14 Crenated Cell Not Reportable 08/28/19 07:14 Elliptocytes Not Reportable 08/28/19 07:14 Acanthocytes (Spur) Not Reportable 08/28/19 07:14 Rouleaux Not Reportable 08/28/19 07:14 Hemoglobin C Crystals Not Reportable 08/28/19 07:14 Schistocytes Rare 08/28/19 07:14 Malaria parasites Not Reportable 08/28/19 07:14 Adarsh Bodies Not Reportable 08/28/19 07:14 Hem Pathologist Commnt No 08/28/19 07:14 APTT 31.8 Sec. (24.2-36.6) 08/25/19 23:03 Sodium 137 mmol/L (137-145) 08/29/19 06:29 Potassium 3.6 mmol/L (3.6-5.0) 08/29/19 06:29 Chloride 98.4 mmol/L (98-107) 08/29/19 06:29 Carbon Dioxide 24 mmol/L (22-30) D 08/29/19 06:29 Anion Gap 18 mmol/L 08/29/19 06:29 BUN 32 mg/dL (7-17) H 08/29/19 06:29 Creatinine 4.7 mg/dL (0.7-1.2) H 08/29/19 06:29 Estimated GFR 12 ml/min 08/29/19 06:29 BUN/Creatinine Ratio 7 % 08/29/19 06:29 Glucose 65 mg/dL (65-100) 08/29/19 06:29 POC Glucose 75 (70-105) 08/29/19 07:42 Hemoglobin A1c 6.4 % (4-6) H 08/25/19 23:03 Lactic Acid 3.70 mmol/L (0.7-2.0) H* 08/27/19 19:42 Calcium 8.6 mg/dL (8.4-10.2) 08/29/19 06:29 Total Bilirubin 1.30 mg/dL (0.1-1.2) H 08/28/19 07:14 AST 56 units/L (5-40) H 08/28/19 07:14 ALT 19 units/L (7-56) 08/28/19 07:14 Alkaline Phosphatase 189 units/L (35-129) H 08/28/19 07:14 Total Protein 7.9 g/dL (6.3-8.2) 08/28/19 07:14 Albumin 2.1 g/dL (3.9-5) L 08/28/19 07:14 Albumin/Globulin Ratio 0.4 % 08/28/19 07:14 Influenza A (Rapid) Negative (Negative) 08/25/19 00:07 Influenza B (Rapid) Negative (Negative) 08/25/19 00:07 Active Medications - Current Medications Current Medications: Generic Name Dose Route Start Last Admin Trade Name Freq PRN Reason Stop Dose Admin Acetaminophen 650 mg 08/26/19 01:21 Tylenol PO Q4H PRN Pain MILD(1-3)/Fever >100.5/[place] Albuterol 2.5 mg 08/26/19 02:59 Proventil IH Q3HRT PRN Shortness Of Breath Cholecalciferol 800 unit 08/28/19 10:00 08/28/19 09:24 Vitamin D3 PO 800 unit QDAY WALT Administration Clonidine HCl 0.2 mg 08/27/19 22:00 08/28/19 22:58 Catapres PO 0.2 mg BID WALT Administration Dextrose 0 ml 08/26/19 02:59 D50w (25gm) Syringe IV Q30MIN PRN Hypoglycemia Epoetin Arias 10,000 unit 08/27/19 09:35 08/27/19 15:49 Procrit IV 10,000 unit AMBER PRN Administration hemodialysis Heparin Sodium (Porcine) 5,000 unit 08/26/19 10:00 08/28/19 22:58 Heparin SUB-Q 5,000 unit Q12HR WALT Administration Heparin Sodium (Porcine) 5,000 unit 08/27/19 09:35 Heparin IV AMBER PRN hemodialysis Cefepime HCl 1 gm in 100 mls @ 200 mls/hr 08/26/19 18:00 08/28/19 18:36 Cefepime/Ns 1 Gm/100 Ml IV 200 mls/hr QPM WALT Administration Sodium Chloride 100 mls @ 999 mls/hr 08/27/19 09:35 Nacl 0.9% IV AMBER PRN Hypotension Insulin Human Isoph/Insulin Regular 5 unit 08/28/19 08:00 08/28/19 17:00 Humulin 70/30 SUB-Q 5 unit BIDDIAB WALT Administration Insulin Human Lispro 0 unit 08/26/19 07:30 08/29/19 08:35 Humalog SUB-Q Not Given ACHS WALT Protocol Lactulose 20 gm 08/27/19 22:00 08/29/19 00:43 Cephulac PO 20 gm BID WALT Administration Ondansetron HCl 4 mg 08/26/19 01:21 Zofran IV Q8H PRN Nausea And Vomiting Oxycodone HCl 5 mg 08/29/19 10:00 Oxycontin PO Q12HR WALT Pantoprazole Sodium 40 mg 08/27/19 10:00 08/28/19 09:25 Protonix PO 40 mg DAILY WALT Administration Sodium Chloride 10 ml 08/26/19 10:00 08/28/19 22:58 Sodium Chloride Flush Syringe 10 Ml IV 10 ml BID WALT Administration Sodium Chloride 10 ml 08/26/19 01:21 Sodium Chloride Flush Syringe 10 Ml IV PRN PRN LINE FLUSH Nutrition/Malnutrition Assess - Dietary Evaluation Nutrition/Malnutrition Findings: Nutrition Notes Start: 08/28/19 15:00 Freq: Status: Active Protocol: Document 08/28/19 15:00 RM (Rec: 08/28/19 15:20 RM [id number]) Nutrition Notes Need for Assessment generated from: MD Order Initial or Follow up Assessment Current Diagnosis COPD Other Pertinent Diagnosis ESRD on HD (M/W/F), Bilat LE infected diabetic ulcers, PVD, Liver disease Current Diet Renal Labs/Tests Reviewed Pertinent Medications Reviewed Height 5 ft 6 in Weight 137.9 kg [place] Body Weight (kg) 59.09 BMI 49.0 Subjective/Other Information Consulted for malnutrition. Pt and pt mother in room at time of visit. Pt asleep. Pt mother stated that [employer] pt appetite was "so so" and that she ate 2 meals w/1 snack daily. Stated that pt has not been eating her meals here except for cereal for breakfast and half a hamburger d/t disliking the diet. Noted preferences. Pt mother agreed to trial of Nepro. Unsure of pt dry wt. Burn Absent Trauma Absent Minimum of two criteria No #1 Nutrition Diagnosis Inadequate oral intake Etiology food preferences As Evidenced by Signs and Symptoms pt mother statement that pt has not been eating her meals Is patient on ventilator? No Is Patient Ambulatory and/or Out of Bed No REE-([facility]-confined to bed) 3266.460 Calculation Used for Recommendations [facility] Additional Notes Protein Needs: 118g (>1.2g/kg 98kg adjBW) Fluid Needs: 1 ml/kcal Nutrition Intervention Change Diet Order: Continue current Add Supplement/Snack (indicate name/kcal Nepro Butter Pecan 1 daily /protein ) Provides kCal: 425 Provides Protein (gm) 19 Goal #1 Meet at least 75% of calorie and protein needs via PO and ONS intakes Anticipated Discharge Needs: Renal diet Follow-Up By: 08/31/19 Additional Comments Follow for PO and ONS intakes
[2019-08-29 09:10] LABS: Basophils # (Auto) 0.2 K/mm3 (0.0-0.1); Eosinophils # (Auto) 1.7 K/mm3 (0.0-0.4); Eosinophils % (Auto) 9.9 % (0.0-4.3); Monocytes # (Auto) 1.1 K/mm3 (0.0-0.8); Monocytes % (Auto) 6.5 % (0.0-7.3)
[2019-08-29] MEDS: cloNIDine 0.2 MG TAB PO SCH ×2 (09:29→21:59)
[2019-08-29] MEDS: PANTOPRAZOLE 40 MG TAB PO SCH (09:38)
[2019-08-29] MEDS: CHOLECALCIFEROL (VIT D3) 400 UNIT TAB PO SCH (09:39)
[2019-08-29] MEDS: oxyCODONE ER 10 MG TAB PO SCH ×2 (09:40→22:00)
[2019-08-29] MEDS: HEPARIN 5,000 UNIT/1 ML VIAL SUB-Q SCH ×2 (09:41→22:02)
[2019-08-29] MEDS: INSULIN NPH/REGULAR 70/30 INJ SUB-Q SCH ×2 (09:46→17:57)
[2019-08-29 10:35] LABS: Total Cells Counted 100
[2019-08-29 10:37] LABS: Hypochromasia Few; Target Cells 1+
[2019-08-29 10:38] LABS: Large Platelets Few; Platelet Estimate Consistent w Auto
[2019-08-29] MEDS ORDERED: diphenhydrAMINE 25 MG CAP PO PRN (11:35)
[2019-08-29] MEDS ORDERED: CEFEPIME/NS 2 GM/100 ML 2 GM/100 ML BAG IV SCH (12:00)
--- NOTE | 2019-08-29 15:23 | Progress Note ---
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 * Lactic acidosis * Anemia secondary to ESRD * Medical noncompliance * Hx of enteroccocal bacteremia Plan: * Continue HD MWF schedule * UF as tolerated * Monitor lytes and volume status closely * Abx per ID * Surgery and ID following * Epogen TIW prn * Renal diet * Dose medications for renal function Subjective Date of service: 08/29/19 Interval history: No acute events overnight. Patient febrile at admission w/ temp 102. She has been afebrile for >72hours. Reports that she feels "sleep, sleep, sleep" Objective - Vital Signs Vital signs: Vital Signs - 12hr 08/29/19 08/29/19 08/29/19 04:28 09:27 09:29 Temperature 97.2 F L Pulse Rate 98 H Respiratory 18 Rate Blood Pressure 122/69 102/62 102/62 O2 Sat by Pulse 100 Oximetry 08/29/19 12:03 Temperature 97.8 F Pulse Rate 56 L Respiratory 18 Rate Blood Pressure 113/72 O2 Sat by Pulse 91 Oximetry - General Appearance General appearance: well-developed, well-nourished EENT: ATNC Respiratory: Present: Clear to Ascultation (anteriorly) Cardiology: regular, S1S2 Gastrointestinal: obese Neurologic: no focal deficit Musculoskeletal: other (bilateral LE bandaged) Psychiatric: cooperative - Lab 08/29/19 06:29 08/29/19 06:29 Most recent lab results Calcium 8.6 mg/dL (8.4-10.2) 08/29/19 06:29 Medications & Allergies - Medications Allergies/Adverse Reactions: Allergies No Known Allergies Allergy (Verified 03/12/19 12:23) Home Medications: Home Medications Medication Instructions Recorded Confirmed Last Taken Type Ergocalciferol(Vitamin D2)(Nf) 800 unit PO DAILY 07/06/19 08/29/19 1 Day Ago History [Vitamin D (Nf)] ~08/12/19 cloNIDine [Catapres] 0.2 mg PO BID 07/06/19 08/29/19 08/28/19 22:00 History Pantoprazole [Protonix TAB] 40 mg PO QDAY #30 tablet 07/14/19 08/29/19 08/13/19 Rx oxyCODONE ER [oxyCONTIN ER] 10 mg PO Q12HR PRN #30 tablet 07/28/19 08/29/19 08/12/19 Rx Insulin NPH/Regular [NovoLIN 70/30] 5 unit SUB-Q BIDDIAB units 08/13/19 08/29/19 Unknown Rx Insulin NPH/Regular [NovoLIN 70/30] 5 unit SUB-Q BIDDIAB #10 ml 08/13/19 08/29/19 Unknown Rx Lactulose [Cephulac] 20 gm PO BID oral.liqd 08/13/19 08/29/19 Unknown Rx Pantoprazole [Protonix TAB] 40 mg PO QDAY tablet 08/13/19 08/29/19 Unknown Rx oxyCODONE ER [oxyCONTIN ER] 10 mg PO Q12HR PRN tablet 08/13/19 08/29/19 Unknown Rx Active Medications: Generic Name Dose Route Start Last Admin Trade Name Freq PRN Reason Stop Dose Admin Acetaminophen 650 mg 08/26/19 01:21 Tylenol PO Q4H PRN Pain MILD(1-3)/Fever >100.5/[place] Albuterol 2.5 mg 08/26/19 02:59 Proventil IH Q3HRT PRN Shortness Of Breath Cholecalciferol 800 unit 08/28/19 10:00 08/29/19 09:39 Vitamin D3 PO 800 unit QDAY WALT Administration Clonidine HCl 0.2 mg 08/27/19 22:00 08/29/19 09:29 Catapres PO Not Given BID WALT Dextrose 0 ml 08/26/19 02:59 08/29/19 09:31 D50w (25gm) Syringe IV 10 ml Q30MIN PRN Administration Hypoglycemia Diphenhydramine HCl 25 mg 08/29/19 11:35 Benadryl PO Q6H PRN Itching Epoetin Arias 10,000 unit 08/27/19 09:35 08/27/19 15:49 Procrit IV 10,000 unit AMBER PRN Administration hemodialysis Heparin Sodium (Porcine) 5,000 unit 08/26/19 10:00 08/29/19 09:41 Heparin SUB-Q 5,000 unit Q12HR WALT Administration Heparin Sodium (Porcine) 5,000 unit 08/27/19 09:35 Heparin IV AMBER PRN hemodialysis Sodium Chloride 100 mls @ 999 mls/hr 08/27/19 09:35 Nacl 0.9% IV AMBER PRN Hypotension Cefepime HCl 1 gm in 100 mls @ 200 mls/hr 08/29/19 18:00 Cefepime/Ns 1 Gm/100 Ml IV QPM WALT Insulin Human Isoph/Insulin Regular 5 unit 08/28/19 08:00 08/29/19 09:46 Humulin 70/30 SUB-Q 5 unit BIDDIAB WALT Administration Insulin Human Lispro 0 unit 08/26/19 07:30 08/29/19 13:23 Humalog SUB-Q Not Given ACHS [facility] Protocol Lactulose 20 gm 08/27/19 22:00 08/29/19 09:38 Cephulac PO 20 gm BID WALT Administration Ondansetron HCl 4 mg 08/26/19 01:21 Zofran IV Q8H PRN Nausea And Vomiting Oxycodone HCl 5 mg 08/29/19 10:00 08/29/19 09:40 Oxycontin PO 5 mg Q12HR WALT Administration Pantoprazole Sodium 40 mg 08/27/19 10:00 08/29/19 09:38 Protonix PO 40 mg DAILY WALT Administration Sodium Chloride 10 ml 08/26/19 10:00 08/29/19 09:32 Sodium Chloride Flush Syringe 10 Ml IV 10 ml BID WALT Administration Sodium Chloride 10 ml 08/26/19 01:21 Sodium Chloride Flush Syringe 10 Ml IV PRN PRN LINE FLUSH
[2019-08-29] MEDS: CEFEPIME/NS 1 GM/100 ML 1 GM/100 ML BAG IV SCH (17:57)
[2019-08-30 07:30] LABS: Basophils # (Auto) 0.2 K/mm3 (0.0-0.1); Eosinophils # (Auto) 1.6 K/mm3 (0.0-0.4); Eosinophils % (Auto) 8.7 % (0.0-4.3); Hematocrit 27.3 % (30.3-42.9); Hemoglobin 8.6 gm/dl (10.1-14.3); Lymphocytes # (Auto) 1.8 K/mm3 (1.2-5.4); Mean Corpuscular HGB Conc 31 % (30-34); Mean Corpuscular Volume 91 fl (79-97); Monocytes # (Auto) 1.2 K/mm3 (0.0-0.8); Monocytes % (Auto) 6.6 % (0.0-7.3); Platelet Count 289 K/mm3 (140-440); Red Blood Count 3.01 M/mm3 (3.65-5.03); Red Cell Distribution Width 18.8 % (13.2-15.2)
[2019-08-30 07:52] LABS: Calcium 8.5 mg/dL (8.4-10.2)
--- NOTE | 2019-08-30 09:35 | Progress Note ---
Assessment and Plan Assessment * End-stage renal disease on HD (outpatient unit [facility]) * Bilateral LE wound infection * Calciphylaxis w/ superimposed polymicrobial wound infection * Lactic acidosis * Anemia secondary to ESRD * Medical noncompliance * Hx of enteroccocal bacteremia Plan: * Continue HD MWF schedule, due for HD today * UF as tolerated * Monitor lytes and volume status closely * Abx per ID * Surgery and ID following, appreciate recommendations * Epogen TIW, no IV iron given infection * Renal diet * Dose medications for renal function * Thank you for this consult; we will continue to follow while patient remains hospitalized for renal replacement therapy needs. Subjective Date of service: 08/30/19 Principal diagnosis: wound infection Interval history: No acute events noted overnight. No issues this AM, no issues with HD recently. Continues to feel sleepy. No dyspnea, new edema noted. Objective - Exam Narrative Exam: General appearance: well-developed, well-nourished, drowsy but alert and arousable EENT: ATNC Respiratory: Present: Clear to Auscultation (anteriorly) Cardiology: regular, S1S2 Gastrointestinal: obese Neurologic: no focal deficit Musculoskeletal: other (bilateral LE bandaged) Psychiatric: cooperative - Vital Signs Vital signs: Vital Signs - 12hr 08/29/19 08/29/19 08/29/19 21:59 22:00 23:00 Temperature Pulse Rate 117 H Respiratory 20 17 Rate Respiratory 22 Rate [chest] Blood Pressure 117/90 08/30/19 04:38 Temperature 97.7 F Pulse Rate Respiratory 20 Rate Respiratory Rate [chest] Blood Pressure 112/74 - Lab 08/30/19 06:44 08/30/19 06:44 Most recent lab results Calcium 8.5 mg/dL (8.4-10.2) 08/30/19 06:44 Medications & Allergies - Medications Allergies/Adverse Reactions: Allergies No Known Allergies Allergy (Verified 03/12/19 12:23) Home Medications: Home Medications Medication Instructions Recorded Confirmed Last Taken Type Ergocalciferol(Vitamin D2)(Nf) 800 unit PO DAILY 07/06/19 08/29/19 1 Day Ago History [Vitamin D (Nf)] ~08/12/19 cloNIDine [Catapres] 0.2 mg PO BID 07/06/19 08/29/19 08/28/19 22:00 History Pantoprazole [Protonix TAB] 40 mg PO QDAY #30 tablet 07/14/19 08/29/19 08/13/19 Rx oxyCODONE ER [oxyCONTIN ER] 10 mg PO Q12HR PRN #30 tablet 07/28/19 08/29/19 08/12/19 Rx Insulin NPH/Regular [NovoLIN 70/30] 5 unit SUB-Q BIDDIAB units 08/13/19 08/29/19 Unknown Rx Insulin NPH/Regular [NovoLIN 70/30] 5 unit SUB-Q BIDDIAB #10 ml 08/13/19 08/29/19 Unknown Rx Lactulose [Cephulac] 20 gm PO BID oral.liqd 08/13/19 08/29/19 Unknown Rx Pantoprazole [Protonix TAB] 40 mg PO QDAY tablet 08/13/19 08/29/19 Unknown Rx oxyCODONE ER [oxyCONTIN ER] 10 mg PO Q12HR PRN tablet 08/13/19 08/29/19 Unknown Rx Active Medications: Generic Name Dose Route Start Last Admin Trade Name Freq PRN Reason Stop Dose Admin Acetaminophen 650 mg 08/26/19 01:21 Tylenol PO Q4H PRN Pain MILD(1-3)/Fever >100.5/[place] Albuterol 2.5 mg 08/26/19 02:59 Proventil IH Q3HRT PRN Shortness Of Breath Cholecalciferol 800 unit 08/28/19 10:00 08/29/19 09:39 Vitamin D3 PO 800 unit QDAY WALT Administration Clonidine HCl 0.2 mg 08/27/19 22:00 08/29/19 21:59 Catapres PO 0.2 mg BID WALT Administration Dextrose 0 ml 08/26/19 02:59 08/29/19 09:31 D50w (25gm) Syringe IV 10 ml Q30MIN PRN Administration Hypoglycemia Diphenhydramine HCl 25 mg 08/29/19 11:35 Benadryl PO Q6H PRN Itching Epoetin Arias 10,000 unit 08/27/19 09:35 08/27/19 15:49 Procrit IV 10,000 unit AMBER PRN Administration hemodialysis Heparin Sodium (Porcine) 5,000 unit 08/26/19 10:00 08/29/19 22:02 Heparin SUB-Q 5,000 unit Q12HR WALT Administration Heparin Sodium (Porcine) 5,000 unit 08/27/19 09:35 Heparin IV AMBER PRN hemodialysis Sodium Chloride 100 mls @ 999 mls/hr 08/27/19 09:35 Nacl 0.9% IV AMBER PRN Hypotension Cefepime HCl 1 gm in 100 mls @ 200 mls/hr 08/29/19 18:00 08/29/19 17:57 Cefepime/Ns 1 Gm/100 Ml IV 200 mls/hr QPM WALT Administration Insulin Human Isoph/Insulin Regular 5 unit 08/28/19 08:00 08/29/19 17:57 Humulin 70/30 SUB-Q 5 unit BIDDIAB WALT Administration Insulin Human Lispro 0 unit 08/26/19 07:30 08/29/19 22:02 Humalog SUB-Q Not Given ACHS [facility] Protocol Lactulose 20 gm 08/27/19 22:00 08/29/19 22:02 Cephulac PO Not Given BID [facility] Ondansetron HCl 4 mg 08/26/19 01:21 Zofran IV Q8H PRN Nausea And Vomiting Oxycodone HCl 5 mg 08/29/19 10:00 08/29/19 22:00 Oxycontin PO 5 mg Q12HR WALT Administration Pantoprazole Sodium 40 mg 08/27/19 10:00 08/29/19 09:38 Protonix PO 40 mg DAILY WALT Administration Sodium Chloride 10 ml 08/26/19 10:00 08/29/19 22:03 Sodium Chloride Flush Syringe 10 Ml IV 10 ml BID WALT Administration Sodium Chloride 10 ml 08/26/19 01:21 Sodium Chloride Flush Syringe 10 Ml IV PRN PRN LINE FLUSH
[2019-08-30] MEDS: PANTOPRAZOLE 40 MG TAB PO SCH (09:40)
[2019-08-30] MEDS: HEPARIN 5,000 UNIT/1 ML VIAL SUB-Q SCH ×2 (09:40→22:12)
[2019-08-30] MEDS: INSULIN NPH/REGULAR 70/30 INJ SUB-Q SCH ×2 (09:40→18:04)
[2019-08-30] MEDS: LACTULOSE 20 GM/30 ML ORAL LIQD PO SCH ×2 (09:40→22:13)
[2019-08-30] MEDS: oxyCODONE ER 10 MG TAB PO SCH (09:40)
[2019-08-30] MEDS: CHOLECALCIFEROL (VIT D3) 400 UNIT TAB PO SCH (09:41)
[2019-08-30] MEDS: INSULIN LISPRO 100 UNIT/ML SUB-Q SCH ×4 (09:41→22:11)
[2019-08-30] MEDS: cloNIDine 0.2 MG TAB PO SCH ×3 (09:43→22:10)
--- NOTE | 2019-08-30 12:53 | Progress Note ---
Assessment and Plan Cultures: 08/25/19 blood culture: NGTD 08/26 LLE wound culture: Pseudomonas, Proteus, Enterobacter 08/26 RLE wound culture: GNR, GNR #2 08/26 buttock wound culture: GNR, GNR#2, Enterococcus A/P: 44 yo F PMHx ESRD on HD HTN, liver disease, cellulitis, bilateral leg ulcerations admitted with sepsis, possible wound infection 1. Acute sepsis - present with fevers and leukocytosis, most likely secondary to her wounds. Blood cultures with no growth. Wound cultures are polymicrobial. Flu negative. CXR normal. 2. Bilateral LE wound and buttock wounds - pending cultures, Dr. Michelle consult ed again after performing debridement at last hospitalization. Difficult to ascertain whether true infection. Cultures with minimal inflammatory cells, however patient presented with fevers and leukocytosis. Enterococcus likely a colonizer but given persistent leucocytosis, will treat. 3. ESRD on HD - renally dose antibiotics as appropriate Recs: - continue IV Cefepime, added IV vancomycin renally adjusted - complete 7 days of abx from date of her debridement (end date: 09/02/2019) If discharged, can do IV Ceftaz + IV Vancomycin post HD at dialysis center Xochilt Pitts MD, FACP [facility] M: [phone] O: [phone] F: [phone] Subjective Date of service: 08/30/19 Principal diagnosis: wound infection Interval history: No fever. Seen at dialysis. Has no complaints. No nausea, vomiting or shortness of breath. Objective - Exam Narrative Exam: Constitutional: awake, alert. obese Head, Ears, Nose: Normocephalic, atraumatic. External ears, nose normal Eyes: Conjunctivae/corneas clear. icterus +. No ptosis. Neck: Supple, no meningeal signs Oral: no thrush Cardiovascular: S1, S2 normal. Respiratory: Good air entry, clear to auscultation bilaterally GI: obese, abdominal wall edema, bowel sounds +, No peritoneal signs Musculoskeletal: large bilateral lower extremity wounds with dressings. HD cath + Skin: No rash or abscess Hem/Lymphatic: No palpable cervical or supraclavicular nodes. No lymphangitis Psych: mood OK, affect normal Neurological: awake, alert, oriented - Constitutional Vitals: Vital Signs Temp Pulse Resp BP Pulse Ox 97.7 F 117 H 20 112/74 99 08/30/19 04:38 08/29/19 21:59 08/30/19 04:38 08/30/19 04:38 08/29/19 21:18 Temperature -Last 24 Hours Temperature 97.7 F Temperature 97.5 F Temperature 98.4 F - Labs CBC & Chem 7: 08/30/19 06:44 08/30/19 06:44 Labs: Abnormal lab results 08/29/19 08/29/19 08/30/19 Range/Units 16:40 21:28 06:44 WBC 18.4 H (4.5-11.0) K/mm3 RBC 3.01 L (3.65-5.03) M/mm3 Hgb 8.6 L (10.1-14.3) gm/dl Hct 27.3 L (30.3-42.9) % RDW 18.8 H (13.2-15.2) % Lymph % (Auto) 10.0 L (13.4-35.0) % Eos % (Auto) 8.7 H (0.0-4.3) % Dixie # 1.2 H (0.0-0.8) K/mm3 Eos # 1.6 H (0.0-0.4) K/mm3 Baso # 0.2 H (0.0-0.1) K/mm3 Seg Neutrophils % 73.7 H (40.0-70.0) % Seg Neutrophils # 13.5 H (1.8-7.7) K/mm3 Sodium (137-145) mmol/L Chloride (98-107) mmol/L BUN (7-17) mg/dL Creatinine (0.7-1.2) mg/dL Glucose (65-100) mg/dL POC Glucose 113 H 139 H (70-105) 08/30/19 08/30/19 08/30/19 Range/Units 06:44 08:02 11:31 WBC (4.5-11.0) K/mm3 RBC (3.65-5.03) M/mm3 Hgb (10.1-14.3) gm/dl Hct (30.3-42.9) % RDW (13.2-15.2) % Lymph % (Auto) (13.4-35.0) % Eos % (Auto) (0.0-4.3) % Dixie # (0.0-0.8) K/mm3 Eos # (0.0-0.4) K/mm3 Baso # (0.0-0.1) K/mm3 Seg Neutrophils % (40.0-70.0) % Seg Neutrophils # (1.8-7.7) K/mm3 Sodium 135 L (137-145) mmol/L Chloride 96.8 L (98-107) mmol/L BUN 37 H (7-17) mg/dL Creatinine 5.3 H (0.7-1.2) mg/dL Glucose 115 H (65-100) mg/dL POC Glucose 122 H 189 H (70-105)
[2019-08-30] MEDS ORDERED: VANCOMYCIN PHARMACY TO DOSE IV SCH (13:00)
[2019-08-30] MEDS: EPOETIN ALFA 10,000 UNIT/1 ML INJ IV PRN (15:54)
[2019-08-30] MEDS ORDERED: VANCOMYCIN 2,000 MG in SODIUM CHLORIDE 0.9% 500 ML 500 ML IV ONE (16:00)
[2019-08-30] MEDS ORDERED: SODIUM CHLORIDE*PRIMING MACHINE ONLY FOR DIALYSIS MC ONE (16:24)
--- NOTE | 2019-08-30 17:27 | Progress Note ---
Assessment and Plan Assessment and plan: A 4-year-old female patient with significant history of end-stage renal disease on hemodialysis MWF hypertension diabetes mellitus chronic liver disease peripheral vascular disease and cellulitis bilateral lower extremities with ulceration was admitted through emergency room with worsening shortness of yamilka ath Initial evaluation is consistent with sepsis, hypotension, end-stage renal disease on hemodialysis, lactic acidosis, bilateral lower extremity cellulitis and chronic ulcers Started on empiric antibiotics, evaluated by surgery for wound care status with debridement, ID evaluated the patient medications optimized, she does DVT on full dose anticoagulation, And is being scheduled for debridement in 1-2 days --Bilateral LE and buttock wound infection: Wound care, antibiotic antibiotics, ID following s/p surgical debridement and supportive care --Sepsis: Sec to wounfd infection, IV fluids.antibiotics f/u cultures Wound cultures Pseudomonas Proteus, Escherichia coli, ID following Continue Cefepime --Lactic Acidosis:due to sepsis --Calciphylaxis/ Pyoderma: Supportive care,possible skin biopsy,wound care --ESRD: HD per schedule.,Nephrology following --Amemia of chronic Disease --Morbid obesity: BMI49.1 Advised weight reduction and medically stable --Severe Malnutrition/hypoalbuminemia:, Nutrition consult --DVT prophylaxis; Lovenox --Full code Monitor clinically and adjust the management as needed Plan of care reviewed with the patient, family members at the bedside As well as patient's nurse Disposition; follow clinically, follow surgery, ID recommendations Discharge when stable History Interval history: Patient seen and examined medical records reviewed Complains of some pain in the leg Vital signs reviewed Hospitalist Physical - Constitutional Vitals: Temp Pulse Resp BP Pulse Ox 98.2 F 100 H 20 142/65 91 08/30/19 17:16 08/30/19 17:16 08/30/19 17:16 08/30/19 17:16 08/30/19 17:16 General appearance: Present: no acute distress, well-nourished, obese (morbidly obese) - EENT Eyes: Present: PERRL, EOM intact - Neck Neck: Present: supple, normal ROM - Respiratory Respiratory effort: normal Respiratory: bilateral: diminished, negative: rales, rhonchi, wheezing - Cardiovascular Rhythm: regular Heart Sounds: Present: S1 & S2 - Extremities Extremities: abnormal (left foot in dressing) Extremity abnormal: edema, erythema - Abdominal General gastrointestinal: soft, non-tender, non-distended, normal bowel sounds - Integumentary Integumentary: Present: clear, warm - Psychiatric Psychiatric: appropriate mood/affect, cooperative - Neurologic Neurologic: CNII-XII intact, moves all extremities Results - Labs CBC & Chem 7: 08/30/19 06:44 08/30/19 06:44 Labs: Laboratory Last Values WBC 18.4 K/mm3 (4.5-11.0) H 08/30/19 06:44 RBC 3.01 M/mm3 (3.65-5.03) L 08/30/19 06:44 Hgb 8.6 gm/dl (10.1-14.3) L 08/30/19 06:44 Hct 27.3 % (30.3-42.9) L 08/30/19 06:44 MCV 91 fl (79-97) 08/30/19 06:44 MCH 28 pg (28-32) 08/30/19 06:44 MCHC 31 % (30-34) 08/30/19 06:44 RDW 18.8 % (13.2-15.2) H 08/30/19 06:44 Plt Count 289 K/mm3 (140-440) 08/30/19 06:44 Lymph % (Auto) 10.0 % (13.4-35.0) L 08/30/19 06:44 Bandera % (Auto) 6.6 % (0.0-7.3) 08/30/19 06:44 Eos % (Auto) 8.7 % (0.0-4.3) H 08/30/19 06:44 Baso % (Auto) 1.0 % (0.0-1.8) 08/30/19 06:44 Lymph # 1.8 K/mm3 (1.2-5.4) 08/30/19 06:44 Bandera # 1.2 K/mm3 (0.0-0.8) H 08/30/19 06:44 Eos # 1.6 K/mm3 (0.0-0.4) H 08/30/19 06:44 Baso # 0.2 K/mm3 (0.0-0.1) H 08/30/19 06:44 Add Manual Diff Complete 08/29/19 06:29 Total Counted 100 08/29/19 06:29 Seg Neutrophils % 73.7 % (40.0-70.0) H 08/30/19 06:44 Seg Neuts % (Manual) 84.0 % (40.0-70.0) H 08/29/19 06:29 Band Neutrophils % 0 % 08/29/19 06:29 Lymphocytes % (Manual) 9.0 % (13.4-35.0) L 08/29/19 06:29 Reactive Lymphs % (Man) 0 % 08/29/19 06:29 Monocytes % (Manual) 3.0 % (0.0-7.3) 08/29/19 06:29 Eosinophils % (Manual) 3.0 % (0.0-4.3) 08/29/19 06:29 Basophils % (Manual) 1.0 % (0.0-1.8) 08/29/19 06:29 Metamyelocytes % 0 % 08/29/19 06:29 Myelocytes % 0 % 08/29/19 06:29 Promyelocytes % 0 % 08/29/19 06:29 Blast Cells % 0 % 08/29/19 06:29 Nucleated RBC % 4.0 % (0.0-0.9) H 08/29/19 06:29 Seg Neutrophils # 13.5 K/mm3 (1.8-7.7) H 08/30/19 06:44 Seg Neutrophils # Man 15.7 K/mm3 (1.8-7.7) H 08/29/19 06:29 Band Neutrophils # 0.0 K/mm3 08/29/19 06:29 Lymphocytes # (Manual) 1.7 K/mm3 (1.2-5.4) 08/29/19 06:29 Abs React Lymphs (Man) 0.0 K/mm3 08/29/19 06:29 Monocytes # (Manual) 0.6 K/mm3 (0.0-0.8) 08/29/19 06:29 Eosinophils # (Manual) 0.6 K/mm3 (0.0-0.4) H 08/29/19 06:29 Basophils # (Manual) 0.2 K/mm3 (0.0-0.1) H 08/29/19 06:29 Metamyelocytes # 0.0 K/mm3 08/29/19 06:29 Myelocytes # 0.0 K/mm3 08/29/19 06:29 Promyelocytes # 0.0 K/mm3 08/29/19 06:29 Blast Cells # 0.0 K/mm3 08/29/19 06:29 WBC Morphology Not Reportable 08/29/19 06:29 Hypersegmented Neuts Not Reportable 08/29/19 06:29 Hyposegmented Neuts Not Reportable 08/29/19 06:29 Hypogranular Neuts Not Reportable 08/29/19 06:29 Smudge Cells Not Reportable 08/29/19 06:29 Toxic Granulation Not Reportable 08/29/19 06:29 Toxic Vacuolation Not Reportable 08/29/19 06:29 Dohle Bodies Not Reportable 08/29/19 06:29 Pelger-Huet Anomaly Not Reportable 08/29/19 06:29 Sara Rods Not Reportable 08/29/19 06:29 Platelet Estimate Consistent w auto 08/29/19 06:29 Clumped Platelets Not Reportable 08/29/19 06:29 Plt Clumps, EDTA Not Reportable 08/29/19 06:29 Large Platelets Few 08/29/19 06:29 Giant Platelets Not Reportable 08/29/19 06:29 Platelet Satelliting Not Reportable 08/29/19 06:29 Plt Morphology Comment Not Reportable 08/29/19 06:29 RBC Morphology Not Reportable 08/29/19 06:29 Dimorphic RBCs Not Reportable 08/29/19 06:29 Polychromasia Few 08/29/19 06:29 Hypochromasia Few 08/29/19 06:29 Poikilocytosis Not Reportable 08/29/19 06:29 Anisocytosis Not Reportable 08/29/19 06:29 Microcytosis Not Reportable 08/29/19 06:29 Macrocytosis Not Reportable 08/29/19 06:29 Spherocytes Not Reportable 08/29/19 06:29 Pappenheimer Bodies Not Reportable 08/29/19 06:29 Sickle Cells Not Reportable 08/29/19 06:29 Target Cells 1+ 08/29/19 06:29 Tear Drop Cells Not Reportable 08/29/19 06:29 Ovalocytes Not Reportable 08/29/19 06:29 Helmet Cells Not Reportable 08/29/19 06:29 [place] Bodies Not Reportable 08/29/19 06:29 [place] Rings Not Reportable 08/29/19 06:29 [place] Cells Not Reportable 08/29/19 06:29 Bite Cells Not Reportable 08/29/19 06:29 Crenated Cell Not Reportable 08/29/19 06:29 Elliptocytes Not Reportable 08/29/19 06:29 Acanthocytes (Spur) Not Reportable 08/29/19 06:29 Rouleaux Not Reportable 08/29/19 06:29 Hemoglobin C Crystals Not Reportable 08/29/19 06:29 Schistocytes Not Reportable 08/29/19 06:29 Malaria parasites Not Reportable 08/29/19 06:29 Adarsh Bodies Not Reportable 08/29/19 06:29 Hem Pathologist Commnt No 08/29/19 06:29 APTT 31.8 Sec. (24.2-36.6) 08/25/19 23:03 Sodium 135 mmol/L (137-145) L 08/30/19 06:44 Potassium 3.6 mmol/L (3.6-5.0) 08/30/19 06:44 Chloride 96.8 mmol/L (98-107) L 08/30/19 06:44 Carbon Dioxide 22 mmol/L (22-30) 08/30/19 06:44 Anion Gap 20 mmol/L 08/30/19 06:44 BUN 37 mg/dL (7-17) H 08/30/19 06:44 Creatinine 5.3 mg/dL (0.7-1.2) H 08/30/19 06:44 Estimated GFR 11 ml/min 08/30/19 06:44 BUN/Creatinine Ratio 7 % 08/30/19 06:44 Glucose 115 mg/dL (65-100) H 08/30/19 06:44 POC Glucose 189 (70-105) H 08/30/19 11:31 Hemoglobin A1c 6.4 % (4-6) H 08/25/19 23:03 Lactic Acid 3.70 mmol/L (0.7-2.0) H* 08/27/19 19:42 Calcium 8.5 mg/dL (8.4-10.2) 08/30/19 06:44 Total Bilirubin 1.30 mg/dL (0.1-1.2) H 08/28/19 07:14 AST 56 units/L (5-40) H 08/28/19 07:14 ALT 19 units/L (7-56) 08/28/19 07:14 Alkaline Phosphatase 189 units/L (35-129) H 08/28/19 07:14 Total Protein 7.9 g/dL (6.3-8.2) 08/28/19 07:14 Albumin 2.1 g/dL (3.9-5) L 08/28/19 07:14 Albumin/Globulin Ratio 0.4 % 08/28/19 07:14 Influenza A (Rapid) Negative (Negative) 08/25/19 00:07 Influenza B (Rapid) Negative (Negative) 08/25/19 00:07 Active Medications - Current Medications Current Medications: Generic Name Dose Route Start Last Admin Trade Name Freq PRN Reason Stop Dose Admin Acetaminophen 650 mg 08/26/19 01:21 Tylenol PO Q4H PRN Pain MILD(1-3)/Fever >100.5/[place] Albuterol 2.5 mg 08/26/19 02:59 Proventil IH Q3HRT PRN Shortness Of Breath Cholecalciferol 800 unit 08/28/19 10:00 08/30/19 09:41 Vitamin D3 PO 800 unit QDAY WALT Administration Clonidine HCl 0.2 mg 08/27/19 22:00 08/30/19 09:45 Catapres PO Not Given BID WALT Dextrose 0 ml 08/26/19 02:59 08/29/19 09:31 D50w (25gm) Syringe IV 10 ml Q30MIN PRN Administration Hypoglycemia Diphenhydramine HCl 25 mg 08/29/19 11:35 Benadryl PO Q6H PRN Itching Epoetin Arias 10,000 unit 08/27/19 09:35 08/30/19 15:54 Procrit IV 10,000 unit AMBER PRN Administration hemodialysis Heparin Sodium (Porcine) 5,000 unit 08/26/19 10:00 08/30/19 09:40 Heparin SUB-Q 5,000 unit Q12HR WALT Administration Heparin Sodium (Porcine) 5,000 unit 08/27/19 09:35 Heparin IV AMBER PRN hemodialysis Sodium Chloride 100 mls @ 999 mls/hr 08/27/19 09:35 Nacl 0.9% IV AMBER PRN Hypotension Cefepime HCl 1 gm in 100 mls @ 200 mls/hr 08/29/19 18:00 08/29/19 17:57 Cefepime/Ns 1 Gm/100 Ml IV 200 mls/hr QPM WALT Administration Vancomycin HCl 2,000 mg/ 540 mls @ 333 mls/hr 08/30/19 16:00 Sodium Chloride IV 08/30/19 17:37 ONCE ONE Protocol Insulin Human Isoph/Insulin Regular 5 unit 08/28/19 08:00 08/30/19 09:40 Humulin 70/30 SUB-Q 5 unit BIDDIAB WALT Administration Insulin Human Lispro 0 unit 08/26/19 07:30 08/30/19 12:35 Humalog SUB-Q Not Given ACHS WALT Protocol Lactulose 20 gm 08/27/19 22:00 08/30/19 09:40 Cephulac PO 20 gm BID WALT Administration Ondansetron HCl 4 mg 08/26/19 01:21 Zofran IV Q8H PRN Nausea And Vomiting Oxycodone HCl 5 mg 08/29/19 10:00 08/30/19 09:40 Oxycontin PO 5 mg Q12HR WALT Administration Pantoprazole Sodium 40 mg 08/27/19 10:00 08/30/19 09:40 Protonix PO 40 mg DAILY WALT Administration Sodium Chloride 10 ml 08/26/19 10:00 08/30/19 09:41 Sodium Chloride Flush Syringe 10 Ml IV 10 ml BID WALT Administration Sodium Chloride 10 ml 08/26/19 01:21 Sodium Chloride Flush Syringe 10 Ml IV PRN PRN LINE FLUSH Nutrition/Malnutrition Assess - Dietary Evaluation Nutrition/Malnutrition Findings: Nutrition Notes Start: 08/28/19 15: 00 Freq: Status: Active Protocol: Document 08/28/19 15:00 RM (Rec: 08/28/19 15:20 RM [id number]) Nutrition Notes Need for Assessment generated from: MD Order Initial or Follow up Assessment Current Diagnosis COPD Other Pertinent Diagnosis ESRD on HD (M/W/F), Bilat LE infected diabetic ulcers, PVD, Liver disease Current Diet Renal Labs/Tests Reviewed Pertinent Medications Reviewed Height 5 ft 6 in Weight 137.9 kg Melvin Body Weight (kg) 59.09 BMI 49.0 Subjective/Other Information Consulted for malnutrition. Pt and pt mother in room at time of visit. Pt asleep. Pt mother stated that [employer] pt appetite was "so so" and that she ate 2 meals w/1 snack daily. Stated that pt has not been eating her meals here except for cereal for breakfast and half a hamburger d/t disliking the diet. Noted preferences. Pt mother agreed to trial of Nepro. Unsure of pt dry wt. Burn Absent Trauma Absent Minimum of two criteria No #1 Nutrition Diagnosis Inadequate oral intake Etiology food preferences As Evidenced by Signs and Symptoms pt mother statement that pt has not been eating her meals Is patient on ventilator? No Is Patient Ambulatory and/or Out of Bed No REE-([facility]-confined to bed) [phone] Calculation Used for Recommendations [facility] Additional Notes Protein Needs: 118g (>1.2g/kg 98kg adjBW) Fluid Needs: 1 ml/kcal Nutrition Intervention Change Diet Order: Continue current Add Supplement/Snack (indicate name/kcal Nepro Butter Pecan 1 daily /protein ) Provides kCal: 425 Provides Protein (gm) 19 Goal #1 Meet at least 75% of calorie and protein needs via PO and ONS intakes Anticipated Discharge Needs: Renal diet Follow-Up By: 08/31/19 Additional Comments Follow for PO and ONS intakes
[2019-08-31] MEDS: CEFEPIME/NS 1 GM/100 ML 1 GM/100 ML BAG IV SCH ×2 (00:32→17:01)
[2019-08-31] MEDS: oxyCODONE ER 10 MG TAB PO SCH ×4 (00:50→21:49)
[2019-08-31] MEDS: INSULIN NPH/REGULAR 70/30 INJ SUB-Q SCH ×2 (07:25→17:00)
[2019-08-31] MEDS: INSULIN LISPRO 100 UNIT/ML SUB-Q SCH ×4 (07:30→21:59)
--- NOTE | 2019-08-31 09:46 | Progress Note ---
Assessment and Plan Assessment * End-stage renal disease on HD (outpatient [facility]) * Bilateral LE wound infection * Calciphylaxis w/ superimposed polymicrobial wound infection * Lactic acidosis * Anemia secondary to ESRD * Medical noncompliance * Hx of enterococcal bacteremia Plan: * Continue HD MWF schedule, due for HD tomorrow * UF as tolerated * Monitor lytes and volume status closely * Abx per ID * Surgery and ID following, appreciate recommendations * Epogen TIW, no IV iron given infection * Renal diet * Dose medications for renal function Thank you for this consult; we will continue to follow while patient remains hospitalized for renal replacement therapy needs. Subjective Date of service: 08/31/19 Principal diagnosis: wound infection Interval history: No acute events noted overnight. No issues this AM, no issues with HD yesterday with no cramping or lightheadedness. Continues to feel sleepy. No dyspnea, new edema noted. Objective - Exam Narrative Exam: General appearance: well-developed, well-nourished, drowsy but alert and arousable EENT: ATNC Respiratory: Present: Clear to Auscultation (anteriorly) Cardiology: regular, S1S2 Gastrointestinal: obese Neurologic: no focal deficit Musculoskeletal: other (bilateral LE bandaged) Psychiatric: cooperative - Vital Signs Vital signs: Vital Signs - 12hr 08/30/19 08/31/19 22:10 00:50 Pulse Rate 98 H Respiratory 18 Rate Blood Pressure 109/74 - Lab 08/30/19 06:44 08/30/19 06:44 Most recent lab results Calcium 8.5 mg/dL (8.4-10.2) 08/30/19 06:44 Medications & Allergies - Medications Allergies/Adverse Reactions: Allergies No Known Allergies Allergy (Verified 03/12/19 12:23) Home Medications: Home Medications Medication Instructions Recorded Confirmed Last Taken Type Ergocalciferol(Vitamin D2)(Nf) 800 unit PO DAILY 07/06/19 08/29/19 1 Day Ago History [Vitamin D (Nf)] ~08/12/19 cloNIDine [Catapres] 0.2 mg PO BID 07/06/19 08/29/19 08/28/19 22:00 History Pantoprazole [Protonix TAB] 40 mg PO QDAY #30 tablet 07/14/19 08/29/19 08/13/19 Rx oxyCODONE ER [oxyCONTIN ER] 10 mg PO Q12HR PRN #30 tablet 07/28/19 08/29/19 08/12/19 Rx Insulin NPH/Regular [NovoLIN 70/30] 5 unit SUB-Q BIDDIAB units 08/13/19 08/29/19 Unknown Rx Insulin NPH/Regular [NovoLIN 70/30] 5 unit SUB-Q BIDDIAB #10 ml 08/13/19 08/29/19 Unknown Rx Lactulose [Cephulac] 20 gm PO BID oral.liqd 08/13/19 08/29/19 Unknown Rx Pantoprazole [Protonix TAB] 40 mg PO QDAY tablet 08/13/19 08/29/19 Unknown Rx oxyCODONE ER [oxyCONTIN ER] 10 mg PO Q12HR PRN tablet 08/13/19 08/29/19 Unknown Rx Active Medications: Generic Name Dose Route Start Last Admin Trade Name Freq PRN Reason Stop Dose Admin Acetaminophen 650 mg 08/26/19 01:21 Tylenol PO Q4H PRN Pain MILD(1-3)/Fever >100.5/[place] Albuterol 2.5 mg 08/26/19 02:59 Proventil IH Q3HRT PRN Shortness Of Breath Cholecalciferol 800 unit 08/28/19 10:00 08/30/19 09:41 Vitamin D3 PO 800 unit QDAY WALT Administration Clonidine HCl 0.2 mg 08/27/19 22:00 08/30/19 22:10 Catapres PO 0.2 mg BID WALT Administration Dextrose 0 ml 08/26/19 02:59 08/29/19 09:31 D50w (25gm) Syringe IV 10 ml Q30MIN PRN Administration Hypoglycemia Diphenhydramine HCl 25 mg 08/29/19 11:35 Benadryl PO Q6H PRN Itching Epoetin Arias 10,000 unit 08/27/19 09:35 08/30/19 15:54 Procrit IV 10,000 unit AMBER PRN Administration hemodialysis Heparin Sodium (Porcine) 5,000 unit 08/26/19 10:00 08/30/19 22:12 Heparin SUB-Q 5,000 unit Q12HR WALT Administration Heparin Sodium (Porcine) 5,000 unit 08/27/19 09:35 Heparin IV AMBER PRN hemodialysis Sodium Chloride 100 mls @ 999 mls/hr 08/27/19 09:35 Nacl 0.9% IV AMBER PRN Hypotension Cefepime HCl 1 gm in 100 mls @ 200 mls/hr 08/29/19 18:00 08/31/19 00:32 Cefepime/Ns 1 Gm/100 Ml IV 200 mls/hr QPM WALT Administration Insulin Human Isoph/Insulin Regular 5 unit 08/28/19 08:00 08/31/19 07:25 Humulin 70/30 SUB-Q 5 unit BIDDIAB WALT Administration Insulin Human Lispro 0 unit 08/26/19 07:30 08/31/19 07:30 Humalog SUB-Q Not Given ACHS [facility] Protocol Lactulose 20 gm 08/27/19 22:00 08/30/19 22:13 Cephulac PO Not Given BID WALT Ondansetron HCl 4 mg 08/26/19 01:21 Zofran IV Q8H PRN Nausea And Vomiting Oxycodone HCl 5 mg 08/29/19 10:00 08/31/19 00:50 Oxycontin PO 5 mg Q12HR WALT Administration Pantoprazole Sodium 40 mg 08/27/19 10:00 08/30/19 09:40 Protonix PO 40 mg DAILY WALT Administration Sodium Chloride 10 ml 08/26/19 10:00 08/30/19 22:10 Sodium Chloride Flush Syringe 10 Ml IV 10 ml BID WALT Administration Sodium Chloride 10 ml 08/26/19 01:21 Sodium Chloride Flush Syringe 10 Ml IV PRN PRN LINE FLUSH
[2019-08-31 10:10] LABS: Hematocrit 28.9 % (30.3-42.9); Hemoglobin 8.8 gm/dl (10.1-14.3); Mean Corpuscular HGB Conc 31 % (30-34); Mean Corpuscular Volume 91 fl (79-97); Platelet Count 184 K/mm3 (140-440); Red Blood Count 3.18 M/mm3 (3.65-5.03); Red Cell Distribution Width 18.6 % (13.2-15.2)
[2019-08-31 10:23] LABS: Calcium 8.5 mg/dL (8.4-10.2)
[2019-08-31] MEDS: cloNIDine 0.2 MG TAB PO SCH ×2 (11:05→21:50)
[2019-08-31] MEDS: LACTULOSE 20 GM/30 ML ORAL LIQD PO SCH ×2 (11:06→21:51)
[2019-08-31] MEDS: HEPARIN 5,000 UNIT/1 ML VIAL SUB-Q SCH ×2 (11:07→21:53)
[2019-08-31] MEDS: PANTOPRAZOLE 40 MG TAB PO SCH (11:09)
[2019-08-31] MEDS: CHOLECALCIFEROL (VIT D3) 400 UNIT TAB PO SCH (11:17)
[2019-08-31 12:08] LABS: Band Neutrophils # (Manual) 0.3 K/mm3; Basophils % (Manual) 0 % (0.0-1.8); Total Cells Counted 100
[2019-08-31 12:09] LABS: Macrocytosis 1+; Platelet Estimate Consistent w Auto; Target Cells 1+
--- NOTE | 2019-08-31 13:46 | Progress Note ---
Assessment and Plan /-Bilateral LE and buttock wound infection: Wound care, antibiotic antibiotics, ID following s/p surgical debridement and supportive care cont IV cefepime end date: 09/02/2019 to complete 7 days post debridement /-Sepsis: Sec to wounfd infection, IV fluids.antibiotics f/u cultures Wound cultures Pseudomonas Proteus, Escherichia coli, ID following Continue Cefepime /-Lactic Acidosis: due to sepsis /-Calciphylaxis/ Pyoderma: Supportive care,possible skin biopsy,wound care /ESRD: HD per schedule.,Nephrology following /-Amemia of chronic Disease, monitor h/h /-Morbid obesity: BMI49.1 Advised weight reduction exercise when medically stable /-Severe Malnutrition/hypoalbuminemia:, Nutrition consult /-DVT prophylaxis; Lovenox /Full code Monitor clinically and adjust the management as needed Plan of care reviewed with the patient, family members at the bedside As well as patient's nurse Disposition; follow clinically, follow surgery, ID recommendations. having difficulty managing wound at home brief History A 44-year-old female patient with significant history of end-stage renal disease on hemodialysis MWF hypertension diabetes mellitus chronic liver disease peripheral vascular disease and cellulitis bilateral lower extremities with ulceration was admitted through emergency room with worsening shortness of breath Initial evaluation is consistent with sepsis, hypotension, end-stage renal disease on hemodialysis, lactic acidosis, bilateral lower extremity cellulitis and chronic ulcers, Started on empiric antibiotics, evaluated by surgery for wound care status with debridement, ID evaluated the patient medications optimized, plan to d/c home after completing abx - family expressing difficulty to manage her. Multiple admissions in the past. Hospitalist Physical General appearance: Present: no acute distress, well-nourished, obese (morbidly obese) - EENT Eyes: Present: PERRL, EOM intact - Neck Neck: Present: supple, normal ROM - Respiratory Respiratory effort: normal Respiratory: bilateral: diminished, negative: rales, rhonchi, wheezing - Cardiovascular Rhythm: regular Heart Sounds: Present: S1 & S2 - Extremities Extremities: abnormal (left foot in dressing) Extremity abnormal: edema, erythema - Abdominal General gastrointestinal: soft, non-tender, non-distended, normal bowel sounds - Integumentary Integumentary: Present: clear, warm - Psychiatric Psychiatric: appropriate mood/affect, cooperative - Neurologic Neurologic: CNII-XII intact, moves all extremities Subjective Date of service: 08/31/19 Principal diagnosis: wound infection Interval history: Patient seen and examined. Medical records and medication list reviewed. No acute event overnight noted by the RN. Patient denies any chest pain or difficulty breathing. Patient is tolerating diet. Discussed plan of care at bedside with patient and her mother. Patient cannot manage her wound at home, per mother wound getting worse at home despite getting wound care Objective - Constitutional Vitals: Vital Signs - 12hr 08/31/19 08/31/19 08/31/19 05:06 11:05 11:47 Temperature 98.2 F 97.1 F L Pulse Rate 88 124 H Respiratory 24 16 Rate Blood Pressure 116/73 119/67 119/82 O2 Sat by Pulse 99 Oximetry - Labs CBC & Chem 7: 08/31/19 09:37 08/31/19 09:37 Labs: Abnormal lab results 08/30/19 08/30/19 08/31/19 Range/Units 18:58 21:52 07:53 WBC (4.5-11.0) K/mm3 RBC (3.65-5.03) M/mm3 Hgb (10.1-14.3) gm/dl Hct (30.3-42.9) % RDW (13.2-15.2) % Seg Neuts % (Manual) (40.0-70.0) % Lymphocytes % (Manual) (13.4-35.0) % Eosinophils % (Manual) (0.0-4.3) % Nucleated RBC % (0.0-0.9) % Seg Neutrophils # Man (1.8-7.7) K/mm3 Lymphocytes # (Manual) (1.2-5.4) K/mm3 Eosinophils # (Manual) (0.0-0.4) K/mm3 Potassium (3.6-5.0) mmol/L Chloride (98-107) mmol/L BUN (7-17) mg/dL Creatinine (0.7-1.2) mg/dL Glucose (65-100) mg/dL POC Glucose 163 H 125 H 144 H (70-105) 08/31/19 08/31/19 08/31/19 Range/Units 09:37 09:37 11:21 WBC 16.5 H (4.5-11.0) K/mm3 RBC 3.18 L (3.65-5.03) M/mm3 Hgb 8.8 L (10.1-14.3) gm/dl Hct 28.9 L (30.3-42.9) % RDW 18.6 H (13.2-15.2) % Seg Neuts % (Manual) 85.0 H (40.0-70.0) % Lymphocytes % (Manual) 4.0 L (13.4-35.0) % Eosinophils % (Manual) 5.0 H (0.0-4.3) % Nucleated RBC % 3.0 H (0.0-0.9) % Seg Neutrophils # Man 14.0 H (1.8-7.7) K/mm3 Lymphocytes # (Manual) 0.7 L (1.2-5.4) K/mm3 Eosinophils # (Manual) 0.8 H (0.0-0.4) K/mm3 Potassium 3.1 L (3.6-5.0) mmol/L Chloride 97.1 L (98-107) mmol/L BUN 28 H (7-17) mg/dL Creatinine 4.2 H (0.7-1.2) mg/dL Glucose 158 H (65-100) mg/dL POC Glucose 188 H (70-105)
--- NOTE | 2019-08-31 14:08 | Progress Note ---
Assessment and Plan Cultures: 08/25/19 blood culture: NGTD 08/26 LLE wound culture: Pseudomonas, Proteus, Enterobacter 08/26 RLE wound culture: Proteus, E.coli, Enterobacter 08/26 buttock wound culture: Pseudomonas, Proteus, Enterococcus A/P: 44 yo F PMHx ESRD on HD HTN, liver disease, cellulitis, bilateral leg ulcerations admitted with sepsis, possible wound infection 1. Acute sepsis - present with fevers and leukocytosis, most likely secondary to her wounds. Blood cultures with no growth. Wound cultures are polymicrobial. Flu negative. CXR normal. 2. Bilateral LE wound and buttock wounds - pending cultures, Dr. Michelle consulted again after performing debridement at last hospitalization. Difficult to ascertain whether true infection. Cultures with minimal inflammatory cells, however patient presented with fevers and leukocytosis. Enterococcus likely a colonizer but given persistent leucocytosis, will treat. 3. ESRD on HD - renally dose antibiotics as appropriate. Recs: - orders placed for IV Ceftazidime + IV Vancomycin post HD at dialysis center (end date: 09/02/2019) to complete 7 days post debridement - mainstay is wound care d/w Case Management and Dr. Ryan. Xochilt Pitts MD, FACP [facility] ([facility] M: [phone] O: [phone] F: [phone] Subjective Date of service: 08/31/19 Principal diagnosis: wound infection Interval history: No fever. Denies any complaints. No nausea, vomiting or shortness of breath. Family member at bedside. Objective - Exam Narrative Exam: Constitutional: awake, alert. obese Head, Ears, Nose: Normocephalic, atraumatic. External ears, nose normal Eyes: Conjunctivae/corneas clear. icterus +. No ptosis. Neck: Supple, no meningeal signs Oral: no thrush Cardiovascular: S1, S2 normal. Respiratory: Good air entry, clear to auscultation bilaterally GI: obese, abdominal wall edema, bowel sounds +, No peritoneal signs Musculoskeletal: large bilateral lower extremity wounds with dressings. HD cath + Skin: No rash or abscess Hem/Lymphatic: No palpable cervical or supraclavicular nodes. No lymphangitis Psych: mood OK, affect normal Neurological: awake, alert, oriented - Constitutional Vitals: Vital Signs Temp Pulse Resp BP Pulse Ox 97.1 F L 124 H 16 119/82 99 08/31/19 11:47 08/31/19 11:47 08/31/19 11:47 08/31/19 11:47 08/31/19 11:47 Temperature -Last 24 Hours Temperature 97.1 F Temperature 98.2 F Temperature 98.0 F Temperature 98.2 F Temperature 97.7 F Temperature 97.7 F - Labs CBC & Chem 7: 08/31/19 09:37 08/31/19 09:37 Labs: Abnormal lab results 08/30/19 08/30/19 08/31/19 Range/Units 18:58 21:52 07:53 WBC (4.5-11.0) K/mm3 RBC (3.65-5.03) M/mm3 Hgb (10.1-14.3) gm/dl Hct (30.3-42.9) % RDW (13.2-15.2) % Seg Neuts % (Manual) (40.0-70.0) % Lymphocytes % (Manual) (13.4-35.0) % Eosinophils % (Manual) (0.0-4.3) % Nucleated RBC % (0.0-0.9) % Seg Neutrophils # Man (1.8-7.7) K/mm3 Lymphocytes # (Manual) (1.2-5.4) K/mm3 Eosinophils # (Manual) (0.0-0.4) K/mm3 Potassium (3.6-5.0) mmol/L Chloride (98-107) mmol/L BUN (7-17) mg/dL Creatinine (0.7-1.2) mg/dL Glucose (65-100) mg/dL POC Glucose 163 H 125 H 144 H (70-105) 08/31/19 08/31/19 08/31/19 Range/Units 09:37 09:37 11:21 WBC 16.5 H (4.5-11.0) K/mm3 RBC 3.18 L (3.65-5.03) M/mm3 Hgb 8.8 L (10.1-14.3) gm/dl Hct 28.9 L (30.3-42.9) % RDW 18.6 H (13.2-15.2) % Seg Neuts % (Manual) 85.0 H (40.0-70.0) % Lymphocytes % (Manual) 4.0 L (13.4-35.0) % Eosinophils % (Manual) 5.0 H (0.0-4.3) % Nucleated RBC % 3.0 H (0.0-0.9) % Seg Neutrophils # Man 14.0 H (1.8-7.7) K/mm3 Lymphocytes # (Manual) 0.7 L (1.2-5.4) K/mm3 Eosinophils # (Manual) 0.8 H (0.0-0.4) K/mm3 Potassium 3.1 L (3.6-5.0) mmol/L Chloride 97.1 L (98-107) mmol/L BUN 28 H (7-17) mg/dL Creatinine 4.2 H (0.7-1.2) mg/dL Glucose 158 H (65-100) mg/dL POC Glucose 188 H (70-105)
[2019-09-01] MEDS: INSULIN NPH/REGULAR 70/30 INJ SUB-Q SCH ×2 (08:29→17:30)
[2019-09-01] MEDS: INSULIN LISPRO 100 UNIT/ML SUB-Q SCH ×4 (08:29→22:43)
[2019-09-01] MEDS: LACTULOSE 20 GM/30 ML ORAL LIQD PO SCH ×2 (10:10→22:28)
[2019-09-01] MEDS: HEPARIN 5,000 UNIT/1 ML VIAL SUB-Q SCH ×2 (10:11→22:28)
[2019-09-01] MEDS ORDERED: SODIUM CHLORIDE*PRIMING MACHINE ONLY FOR DIALYSIS MC ONE (11:07)
--- NOTE | 2019-09-01 11:43 | Progress Note ---
Assessment and Plan Cultures: 08/25/19 blood culture: NGTD 08/26 LLE wound culture: Pseudomonas, Proteus, Enterobacter 08/26 RLE wound culture: Proteus, E.coli, Enterobacter 08/26 buttock wound culture: Pseudomonas, Proteus, Enterococcus A/P: 44 yo F PMHx ESRD on HD HTN, liver disease, cellulitis, bilateral leg ulcerations admitted with sepsis, possible wound infection 1. Acute sepsis - present with fevers and leukocytosis, most likely secondary to her wounds. Blood cultures with no growth. Wound cultures are polymicrobial. Flu negative. CXR normal. 2. Bilateral LE wound and buttock wounds - pending cultures, Dr. Michelle consulted again after performing debridement at last hospitalization. Difficult to ascertain whether true infection. Cultures with minimal inflammatory cells, however patient presented with fevers and leukocytosis. Enterococcus likely a colonizer but given persistent leucocytosis, will treat. 3. ESRD on HD - renally dose antibiotics as appropriate. Recs: - CM orders already placed for IV Ceftazidime + IV Vancomycin post HD at dialysis center (end date: 09/02/2019) to complete 7 days post debridement - mainstay is ongoing wound care as outpatient Xochilt Pitts MD, FACP [facility] ([facility] M: [phone] O: [phone] F: [phone] Subjective Date of service: 09/01/19 Principal diagnosis: wound infection Interval history: Seen at dialysis. Denies any complaints. No fever. Objective - Exam Narrative Exam: Constitutional: awake, alert. obese Head, Ears, Nose: Normocephalic, atraumatic. External ears, nose normal Eyes: Conjunctivae/corneas clear. icterus +. No ptosis. Neck: Supple, no meningeal signs Oral: no thrush Cardiovascular: S1, S2 normal. Respiratory: Good air entry, clear to auscultation bilaterally GI: obese, abdominal wall edema, bowel sounds +, No peritoneal signs Musculoskeletal: large bilateral lower extremity wounds with dressings. HD cath + Skin: No rash or abscess Hem/Lymphatic: No palpable cervical or supraclavicular nodes. No lymphangitis Psych: mood OK, affect normal Neurological: awake, alert, oriented - Constitutional Vitals: Vital Signs Temp Pulse Resp BP Pulse Ox 98.3 F 96 H 19 95/53 100 11/13/19 06:34 09/01/19 06:34 09/01/19 06:34 09/01/19 06:34 09/01/19 06:34 Temperature -Last 24 Hours Temperature 98.3 F Temperature 98.0 F Temperature 98.6 F Temperature 97.1 F - Labs CBC & Chem 7: 08/31/19 09:37 08/31/19 09:37 Labs: Abnormal lab results 08/31/19 08/31/19 08/31/19 Range/Units 09:37 16:19 21:50 Seg Neuts % (Manual) 85.0 H (40.0-70.0) % Lymphocytes % (Manual) 4.0 L (13.4-35.0) % Eosinophils % (Manual) 5.0 H (0.0-4.3) % Nucleated RBC % 3.0 H (0.0-0.9) % Seg Neutrophils # Man 14.0 H (1.8-7.7) K/mm3 Lymphocytes # (Manual) 0.7 L (1.2-5.4) K/mm3 Eosinophils # (Manual) 0.8 H (0.0-0.4) K/mm3 POC Glucose 198 H 236 H (70-105) 09/01/19 Range/Units 08:20 Seg Neuts % (Manual) (40.0-70.0) % Lymphocytes % (Manual) (13.4-35.0) % Eosinophils % (Manual) (0.0-4.3) % Nucleated RBC % (0.0-0.9) % Seg Neutrophils # Man (1.8-7.7) K/mm3 Lymphocytes # (Manual) (1.2-5.4) K/mm3 Eosinophils # (Manual) (0.0-0.4) K/mm3 POC Glucose 159 H (70-105)
--- NOTE | 2019-09-01 11:54 | Progress Note ---
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 Subjective Date of service: 09/01/19 Principal diagnosis: wound infection Interval history: No acute events noted overnight. No issues this AM, seen on HD without complaints of cramping or lightheadedness. Continues to feel sleepy. No dyspnea, new edema noted. Wants to go home. Objective - Exam Narrative Exam: General appearance: well-developed, well-nourished, drowsy but alert and arousable EENT: ATNC Respiratory: Present: Clear to Auscultation (anteriorly) Cardiology: regular, S1S2 Gastrointestinal: obese Neurologic: no focal deficit Musculoskeletal: other (bilateral LE bandaged) Psychiatric: cooperative - Vital Signs Vital signs: Vital Signs - 12hr 09/01/19 06:34 Temperature 98.3 F Pulse Rate 96 H Respiratory 19 Rate Blood Pressure 95/53 O2 Sat by Pulse 100 Oximetry CVC with Qb 350ml/min - Lab 08/31/19 09:37 08/31/19 09:37 Most recent lab results Calcium 8.5 mg/dL (8.4-10.2) 08/31/19 09:37 Medications & Allergies - Medications Allergies/Adverse Reactions: Allergies No Known Allergies Allergy (Verified 03/12/19 12:23) Home Medications: Home Medications Medication Instructions Recorded Confirmed Last Taken Type Ergocalciferol(Vitamin D2)(Nf) 800 unit PO DAILY 07/06/19 08/29/19 1 Day Ago History [Vitamin D (Nf)] ~08/12/19 cloNIDine [Catapres] 0.2 mg PO BID 07/06/19 08/29/19 08/28/19 22:00 History Pantoprazole [Protonix TAB] 40 mg PO QDAY #30 tablet 07/14/19 08/29/19 08/13/19 Rx oxyCODONE ER [oxyCONTIN ER] 10 mg PO Q12HR PRN #30 tablet 07/28/19 08/29/19 08/12/19 Rx Insulin NPH/Regular [NovoLIN 70/30] 5 unit SUB-Q BIDDIAB units 08/13/19 08/29/19 Unknown Rx Insulin NPH/Regular [NovoLIN 70/30] 5 unit SUB-Q BIDDIAB #10 ml 08/13/19 08/29/19 Unknown Rx Lactulose [Cephulac] 20 gm PO BID oral.liqd 08/13/19 08/29/19 Unknown Rx Pantoprazole [Protonix TAB] 40 mg PO QDAY tablet 08/13/19 08/29/19 Unknown Rx oxyCODONE ER [oxyCONTIN ER] 10 mg PO Q12HR PRN tablet 08/13/19 08/29/19 Unknown Rx Active Medications: Generic Name Dose Route Start Last Admin Trade Name Freq PRN Reason Stop Dose Admin Acetaminophen 650 mg 08/26/19 01:21 Tylenol PO Q4H PRN Pain MILD(1-3)/Fever >100.5/[place] Albuterol 2.5 mg 08/26/19 02:59 Proventil IH Q3HRT PRN Shortness Of Breath Cholecalciferol 800 unit 08/28/19 10:00 08/31/19 11:17 Vitamin D3 PO 800 unit QDAY WALT Administration Clonidine HCl 0.2 mg 08/27/19 22:00 08/31/19 21:50 Catapres PO 0.2 mg BID WALT Administration Dextrose 0 ml 08/26/19 02:59 08/29/19 09:31 D50w (25gm) Syringe IV 10 ml Q30MIN PRN Administration Hypoglycemia Diphenhydramine HCl 25 mg 08/29/19 11:35 Benadryl PO Q6H PRN Itching Epoetin Arias 10,000 unit 08/27/19 09:35 08/30/19 15:54 Procrit IV 10,000 unit AMBER PRN Administration hemodialysis Heparin Sodium (Porcine) 5,000 unit 08/26/19 10:00 09/01/19 10:11 Heparin SUB-Q 5,000 unit Q12HR WALT Administration Heparin Sodium (Porcine) 5,000 unit 08/27/19 09:35 Heparin IV AMBER PRN hemodialysis Sodium Chloride 100 mls @ 999 mls/hr 08/27/19 09:35 Nacl 0.9% IV AMBER PRN Hypotension Cefepime HCl 1 gm in 100 mls @ 200 mls/hr 08/29/19 18:00 08/31/19 17:01 Cefepime/Ns 1 Gm/100 Ml IV 200 mls/hr QPM WALT Administration Insulin Human Isoph/Insulin Regular 5 unit 08/28/19 08:00 09/01/19 08:29 Humulin 70/30 SUB-Q 5 unit BIDDIAB WALT Administration Insulin Human Lispro 0 unit 08/26/19 07:30 09/01/19 08:29 Humalog SUB-Q 2 unit ACHS WALT Administration Protocol Lactulose 20 gm 08/27/19 22:00 09/01/19 10:10 Cephulac PO Not Given BID WALT Ondansetron HCl 4 mg 08/26/19 01:21 Zofran IV Q8H PRN Nausea And Vomiting Oxycodone HCl 5 mg 08/29/19 10:00 08/31/19 21:49 Oxycontin PO 5 mg Q12HR WALT Administration Pantoprazole Sodium 40 mg 08/27/19 10:00 08/31/19 11:09 Protonix PO 40 mg DAILY WALT Administration Sodium Chloride 10 ml 08/26/19 10:00 09/01/19 10:13 Sodium Chloride Flush Syringe 10 Ml IV 10 ml BID WALT Administration Sodium Chloride 10 ml 08/26/19 01:21 Sodium Chloride Flush Syringe 10 Ml IV PRN PRN LINE FLUSH
--- NOTE | 2019-09-01 13:47 | Progress Note ---
Assessment and Plan /-Bilateral LE and buttock wound infection: Wound care, antibiotic antibiotics, ID following s/p surgical debridement and supportive care cont IV cefepime end date: 09/02/2019 to complete 7 days post debridement will f/u with Dr Michelle as outpt /-Sepsis: Sec to wounfd infection, IV fluids.antibiotics f/u cultures Wound cultures Pseudomonas Proteus, Escherichia coli, ID following Continue Cefepime /-Lactic Acidosis: due to sepsis /-Calciphylaxis/ Pyoderma: Supportive care,possible skin biopsy,wound care /ESRD: HD per schedule.,Nephrology following /-Amemia of chronic Disease, monitor h/h /-Morbid obesity: BMI49.1 Advised weight reduction exercise when medically stable /-Severe Malnutrition/hypoalbuminemia:, Nutrition consult /-DVT prophylaxis; Lovenox /Full code Monitor clinically and adjust the management as needed Plan of care reviewed with the patient, family members at the bedside As well as patient's nurse Disposition; follow clinically, follow surgery, ID recommendations. having difficulty managing wound at home brief History A 44-year-old female patient with significant history of end-stage renal disease on hemodialysis MWF hypertension diabetes mellitus chronic liver disease peripheral vascular disease and cellulitis bilateral lower extremities with ulceration was admitted through emergency room with worsening shortness of breath Initial evaluation is consistent with sepsis, hypotension, end-stage renal disease on hemodialysis, lactic acidosis, bilateral lower extremity cellulitis and chronic ulcers, Started on empiric antibiotics, evaluated by surgery for wound care status with debridement, ID evaluated the patient medications optimized, plan to d/c home after completing abx - family expressing difficulty to manage her. Multiple admissions in the past. Hospitalist Physical General appearance: Present: no acute distress, well-nourished, obese (morbidly obese) - EENT Eyes: Present: PERRL, EOM intact - Neck Neck: Present: supple, normal ROM - Respiratory Respiratory effort: normal Respiratory: bilateral: diminished, negative: rales, rhonchi, wheezing - Cardiovascular Rhythm: regular Heart Sounds: Present: S1 & S2 - Extremities Extremities: abnormal (left foot in dressing) Extremity abnormal: edema, erythema - Abdominal General gastrointestinal: soft, non-tender, non-distended, normal bowel sounds - Integumentary Integumentary: Present: clear, warm - Psychiatric Psychiatric: appropriate mood/affect, cooperative - Neurologic Neurologic: CNII-XII intact, moves all extremities Subjective Date of service: 09/01/19 Principal diagnosis: wound infection Interval history: Patient seen and examined. Medical records and medication list reviewed. No acute event overnight noted by the RN. Patient denies any chest pain or difficulty breathing. Patient is tolerating diet. Discussed plan of care at bedside with patient and her mother. Patient cannot manage her wound at home, per mother wound getting worse at home despite getting wound care Objective - Constitutional Vitals: Vital Signs - 12hr 09/01/19 09/01/19 06:34 10:00 Temperature 98.3 F 97.9 F Pulse Rate 96 H 69 Respiratory 19 18 Rate Blood Pressure 95/53 145/85 O2 Sat by Pulse 100 Oximetry - Labs CBC & Chem 7: 08/31/19 09:37 08/31/19 09:37 Labs: Abnormal lab results 08/31/19 08/31/19 09/01/19 Range/Units 16:19 21:50 08:20 POC Glucose 198 H 236 H 159 H (70-105)
[2019-09-01] MEDS: EPOETIN ALFA 10,000 UNIT/1 ML INJ IV PRN (14:30)
[2019-09-01] MEDS: PANTOPRAZOLE 40 MG TAB PO SCH (16:52)
[2019-09-01] MEDS: cloNIDine 0.2 MG TAB PO SCH ×2 (16:52→22:32)
[2019-09-01] MEDS: CHOLECALCIFEROL (VIT D3) 400 UNIT TAB PO SCH (16:53)
[2019-09-01] MEDS: oxyCODONE ER 10 MG TAB PO SCH ×2 (16:53→22:29)
[2019-09-01] MEDS: CEFEPIME/NS 1 GM/100 ML 1 GM/100 ML BAG IV SCH (17:27)
[2019-09-02] MEDS: INSULIN LISPRO 100 UNIT/ML SUB-Q SCH ×3 (09:30→18:16)
[2019-09-02] MEDS: INSULIN NPH/REGULAR 70/30 INJ SUB-Q SCH ×2 (09:45→18:17)
[2019-09-02] MEDS: HEPARIN 5,000 UNIT/1 ML VIAL SUB-Q SCH ×2 (09:46→23:06)
[2019-09-02] MEDS: PANTOPRAZOLE 40 MG TAB PO SCH (09:47)
[2019-09-02] MEDS: cloNIDine 0.2 MG TAB PO SCH ×2 (09:47→23:04)
[2019-09-02] MEDS: oxyCODONE ER 10 MG TAB PO SCH ×3 (09:48→23:06)
[2019-09-02] MEDS: CHOLECALCIFEROL (VIT D3) 400 UNIT TAB PO SCH (09:48)
[2019-09-02] MEDS: LACTULOSE 20 GM/30 ML ORAL LIQD PO SCH ×2 (09:49→23:05)
--- NOTE | 2019-09-02 11:15 | Progress Note ---
Assessment and Plan Cultures: 08/25/19 blood culture: NGTD 08/26 LLE wound culture: Pseudomonas, Proteus, Enterobacter 08/26 RLE wound culture: Proteus, E.coli, Enterobacter 08/26 buttock wound culture: Pseudomonas, Proteus, Enterococcus A/P: 44 yo F PMHx ESRD on HD HTN, liver disease, cellulitis, bilateral leg ulcerations admitted with sepsis, possible wound infection 1. Acute sepsis - present with fevers and leukocytosis, most likely secondary to her wounds. Blood cultures with no growth. Wound cultures are polymicrobial. Flu negative. CXR normal. 2. Bilateral LE wound and buttock wounds - pending cultures, Dr. Michelle consulted again after performing debridement at last hospitalization. Difficult to ascertain whether true infection. Cultures with minimal inflammatory cells, however patient presented with fevers and leukocytosis. Enterococcus likely a colonizer but given persistent leucocytosis, will treat. 3. ESRD on HD - renally dose antibiotics as appropriate. Recs: - last day of abx is today (7 days post debridement). Will not need additional abx post discharge. Discussed with case management. - mainstay is ongoing wound care as outpatient. Xochilt Pitts MD, FACP [facility] M: [phone] O: [phone] F: [phone] Subjective Date of service: 09/02/19 Principal diagnosis: wound infection Interval history: No fever. Lying in bed. Denies any complaints. No nausea, vomiting. Objective - Exam Narrative Exam: Constitutional: awake, alert. obese Head, Ears, Nose: Normocephalic, atraumatic. External ears, nose normal Eyes: Conjunctivae/corneas clear. icterus +. No ptosis. Neck: Supple, no meningeal signs Oral: no thrush Cardiovascular: S1, S2 normal. Respiratory: Good air entry, clear to auscultation bilaterally GI: obese, abdominal wall edema, bowel sounds +, No peritoneal signs Musculoskeletal: large bilateral lower extremity wounds with dressings. HD cath + Skin: No rash or abscess Hem/Lymphatic: No palpable cervical or supraclavicular nodes. No lymphangitis Psych: mood OK, affect normal Neurological: awake, alert, oriented - Constitutional Vitals: Vital Signs Temp Pulse Resp BP Pulse Ox 97.7 F 133 H 18 133/46 97 11/13/19 23:40 09/02/19 09:47 09/01/19 23:40 09/02/19 09:47 09/01/19 23:40 Temperature -Last 24 Hours Temperature 97.7 F Temperature 98.6 F Temperature 98.9 F - Labs CBC & Chem 7: 08/31/19 09:37 08/31/19 09:37 Labs: Abnormal lab results 09/01/19 09/01/19 09/02/19 Range/Units 17:16 21:41 08:16 POC Glucose 153 H 242 H 141 H (70-105)
--- NOTE | 2019-09-02 11:16 | Progress Note ---
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 Subjective Date of service: 09/02/19 Principal diagnosis: wound infection Interval history: No acute events noted overnight. No issues this AM, wants to go home. Seen on HD yesterday without complaints of cramping or lightheadedness. No dyspnea, edema noted. Objective - Exam Narrative Exam: General appearance: well-developed, well-nourished, drowsy but alert and arousable EENT: ATNC Respiratory: Present: Clear to Auscultation (anteriorly) Cardiology: regular, S1S2 Gastrointestinal: obese Neurologic: no focal deficit Musculoskeletal: other (bilateral LE bandaged) Psychiatric: cooperative - Vital Signs Vital signs: Vital Signs - 12hr 09/01/19 09/02/19 23:40 09:47 Temperature 97.7 F Pulse Rate 99 H 133 H Respiratory 18 Rate Blood Pressure 119/68 133/46 O2 Sat by Pulse 97 Oximetry - Lab 08/31/19 09:37 08/31/19 09:37 Most recent lab results Calcium 8.5 mg/dL (8.4-10.2) 08/31/19 09:37 Medications & Allergies - Medications Allergies/Adverse Reactions: Allergies No Known Allergies Allergy (Verified 03/12/19 12:23) Home Medications: Home Medications Medication Instructions Recorded Confirmed Last Taken Type Ergocalciferol(Vitamin D2)(Nf) 800 unit PO DAILY 07/06/19 08/29/19 1 Day Ago History [Vitamin D (Nf)] ~08/12/19 cloNIDine [Catapres] 0.2 mg PO BID 07/06/19 08/29/19 08/28/19 22:00 History Pantoprazole [Protonix TAB] 40 mg PO QDAY #30 tablet 07/14/19 08/29/19 08/13/19 Rx oxyCODONE ER [oxyCONTIN ER] 10 mg PO Q12HR PRN #30 tablet 07/28/19 08/29/19 08/12/19 Rx Insulin NPH/Regular [NovoLIN 70/30] 5 unit SUB-Q BIDDIAB units 08/13/19 08/29/19 Unknown Rx Insulin NPH/Regular [NovoLIN 70/30] 5 unit SUB-Q BIDDIAB #10 ml 08/13/19 08/29/19 Unknown Rx Lactulose [Cephulac] 20 gm PO BID oral.liqd 08/13/19 08/29/19 Unknown Rx Pantoprazole [Protonix TAB] 40 mg PO QDAY tablet 08/13/19 08/29/19 Unknown Rx oxyCODONE ER [oxyCONTIN ER] 10 mg PO Q12HR PRN tablet 08/13/19 08/29/19 Unknown Rx Active Medications: Generic Name Dose Route Start Last Admin Trade Name Freq PRN Reason Stop Dose Admin Acetaminophen 650 mg 08/26/19 01:21 Tylenol PO Q4H PRN Pain MILD(1-3)/Fever >100.5/[place] Albuterol 2.5 mg 08/26/19 02:59 Proventil IH Q3HRT PRN Shortness Of Breath Cholecalciferol 800 unit 08/28/19 10:00 09/02/19 09:48 Vitamin D3 PO 800 unit QDAY WALT Administration Clonidine HCl 0.2 mg 08/27/19 22:00 09/02/19 09:47 Catapres PO 0.2 mg BID WALT Administration Dextrose 0 ml 08/26/19 02:59 08/29/19 09:31 D50w (25gm) Syringe IV 10 ml Q30MIN PRN Administration Hypoglycemia Diphenhydramine HCl 25 mg 08/29/19 11:35 Benadryl PO Q6H PRN Itching Epoetin Arias 10,000 unit 08/27/19 09:35 09/01/19 14:30 Procrit IV 10,000 unit AMBER PRN Administration hemodialysis Heparin Sodium (Porcine) 5,000 unit 08/26/19 10:00 09/02/19 09:46 Heparin SUB-Q 5,000 unit Q12HR WALT Administration Heparin Sodium (Porcine) 5,000 unit 08/27/19 09:35 Heparin IV AMBER PRN hemodialysis Sodium Chloride 100 mls @ 999 mls/hr 08/27/19 09:35 Nacl 0.9% IV AMBER PRN Hypotension Cefepime HCl 1 gm in 100 mls @ 200 mls/hr 08/29/19 18:00 09/01/19 17:27 Cefepime/Ns 1 Gm/100 Ml IV 09/02/19 23:59 200 mls/hr QPM WALT Administration Insulin Human Isoph/Insulin Regular 5 unit 08/28/19 08:00 09/02/19 09:45 Humulin 70/30 SUB-Q 5 unit BIDDIAB WALT Administration Insulin Human Lispro 0 unit 08/26/19 07:30 09/02/19 09:30 Humalog SUB-Q Not Given ACHS [facility] Protocol Lactulose 20 gm 08/27/19 22:00 09/02/19 09:49 Cephulac PO Not Given BID [facility] Ondansetron HCl 4 mg 08/26/19 01:21 Zofran IV Q8H PRN Nausea And Vomiting Oxycodone HCl 5 mg 08/29/19 10:00 09/02/19 09:48 Oxycontin PO Not Given Q12HR [facility] Pantoprazole Sodium 40 mg 08/27/19 10:00 09/02/19 09:47 Protonix PO 40 mg DAILY WALT Administration Sodium Chloride 10 ml 08/26/19 10:00 09/02/19 09:49 Sodium Chloride Flush Syringe 10 Ml IV 10 ml BID WALT Administration Sodium Chloride 10 ml 08/26/19 01:21 Sodium Chloride Flush Syringe 10 Ml IV PRN PRN LINE FLUSH
--- NOTE | 2019-09-02 12:29 | Discharge Summary ---
Providers - Providers Date of Admission: 08/26/19 01:21 Date of discharge: 09/02/19 Attending physician: ISABELLA FONTANEZ 08/26/19 02:59 Consult to Physician [CONS] Routine Comment: Consulting Provider: LIVIER ALVARADO Physician Instructions: Reason For Exam: Sepsis ?? source BLE wounds 08/26/19 03:08 Consult to Physician [CONS] Routine Comment: Consulting Provider: JUANCHO RANDHAWA Physician Instructions: Reason For Exam: ESRD on HD M/W/F missed HD on 08/2308/26/19 03:09 Consult to Wound/ET Nurse [CONS] Routine Reason For Exam: wound eval 08/26/19 03:10 Consult to Physician [CONS] Routine Comment: Consulting Provider: ALBERTINA MICHELLE Physician Instructions: Reason For Exam: est pt , ble ulcers s/p debridement 06/201908/26/19 16:13 Consult to Wound/ET Nurse [CONS] Routine Reason For Exam: wound eval 08/27/19 20:34 Consult to Dietitian/Nutrition [CONS] Routine Physician Instructions: Reason For Exam: Reason for Consult: Malnutrition 08/31/19 11:07 Consult to Case Management [CONS] Routine Services Needed at Discharge: Other Notified:: CM NOTIFIED Comment:: IV Abx at dialysis center Additional Physician Instructions: IV Ceftazidime 2 gm post HD + IV Vancomycin 1 gm post HD at dialysis center ending 09/02/2019. No labs needed given short duration of abx. Xochilt Pitts MD, [facility] Primary care physician: VENDOR SPECIALIST Hospitalization Condition: Stable Hospital course: A 44-year-old female patient with significant history of end-stage renal disease on hemodialysis MWF hypertension diabetes mellitus chronic liver disease peripheral vascular disease and cellulitis bilateral lower extremities with ulceration was admitted through emergency room with worsening shortness of breath Initial evaluation is consistent with sepsis, hypotension, end-stage renal disease on hemodialysis, lactic acidosis, bilateral lower extremity cellulitis and chronic ulcers, Started on empiric antibiotics, evaluated by surgery for wound care status with debridement, ID evaluated the patient medications optimized, plan to d/c home after completing abx - family expressing difficulty to manage her. Multiple admissions in the past. Discharge diagnosis: /-Bilateral LE and buttock wound infection: Wound care, antibiotic antibiotics, ID following s/p surgical debridement and supportive care cont IV cefepime end date: 09/02/2019 to complete 7 days post debridement will f/u with Dr Michelle as outpt /-Sepsis: Sec to wounfd infection, IV fluids.antibiotics f/u cultures Wound cultures Pseudomonas Proteus, Escherichia coli, ID following Continue Cefepime /-Lactic Acidosis: due to sepsis /-Calciphylaxis/ Pyoderma: Supportive care,possible skin biopsy,wound care /ESRD: HD per schedule.,Nephrology following /-Amemia of chronic Disease, monitor h/h /-Morbid obesity: BMI49.1 Advised weight reduction exercise when medically stable /-Severe Malnutrition/hypoalbuminemia:, Nutrition consult /-DVT prophylaxis; Lovenox /Full code Monitor clinically and adjust the management as needed Plan of care reviewed with the patient, family members at the bedside As well as patient's nurse Disposition; follow clinically, follow surgery, ID recommendations. having difficulty managing wound at home Hospitalist Physical General appearance: Present: no acute distress, well-nourished, obese (morbidly obese) - EENT Eyes: Present: PERRL, EOM intact - Neck Neck: Present: supple, normal ROM - Respiratory Respiratory effort: normal Respiratory: bilateral: diminished, negative: rales, rhonchi, wheezing - Cardiovascular Rhythm: regular Heart Sounds: Present: S1 & S2 - Extremities Extremities: abnormal (left foot in dressing) Extremity abnormal: edema, erythema - Abdominal General gastrointestinal: soft, non-tender, non-distended, normal bowel sounds - Integumentary Integumentary: Present: clear, warm - Psychiatric Psychiatric: appropriate mood/affect, cooperative - Neurologic Neurologic: CNII-XII intact, moves all extremities Disposition: DC/TX-06 HOME UNDER HOME [facility] Time spent for discharge: 34 minutes Core Measure Documentation - Palliative Care Palliative Care/ Comfort Measures: Not Applicable - Core Measures Any of the following diagnoses?: history only Exam - Constitutional Vitals: Temp Pulse Resp BP Pulse Ox 97.7 F 133 H 18 133/46 97 09/01/19 23:40 09/02/19 09:47 09/01/19 23:40 09/02/19 09:47 09/01/19 23:40 Plan Activity: advance as tolerated, fall precautions Weight Bearing Status: Weight Bear as Tolerated Diet: renal Wound: change dressing, per your surgeon's advice, per wound nurse instructions Special Instructions: restrict fluid intake to (1.2L per day) Follow up with: PRIMARY CARE, [Primary Care Provider] - 7 Days ALBERTINA MICHELLE MD [Staff Physician] - 7 Days Prescriptions: oxyCODONE ER [oxyCONTIN ER] 10 mg PO Q12HR PRN #10 tablet PRN Reason: Pain, Moderate (4-6) ALBUTEROL NEB's [Proventil 0.083% NEBS] 2.5 mg IH Q3HRT PRN #30 nebu PRN Reason: Shortness Of Breath
--- NOTE | 2019-09-02 14:30 | Procedure Note ---
Date of procedure: 09/02/19 Pre-op diagnosis: Left forefoot abscess Post-op diagnosis: same Procedure: I&D of deep left forefoot abscess Description of procedure: Pt was supine on her bed. The left foot was prepped and draped. An I&D was performed with a scalpel. Cloudy clear/levy fluid was sent for C&S. Necrotic skin and SQ tissue were debrided. Bleeding was minimal and was controlled with pressure. Wound was dressed by the Wound Care nurse. Pt tolerated the procedure well. Final wound measurements: 4.5 X 6 X 1.7 cm Anesthesia: other Surgeon: ALBERTINA SOSA Estimated blood loss: minimal Pathology: list (C&S) Specimen disposition: to lab Condition: stable Disposition: no change
[2019-09-02 15:22] LABS: Hematocrit 26.7 % (30.3-42.9); Hemoglobin 8.3 gm/dl (10.1-14.3); Mean Corpuscular HGB Conc 31 % (30-34); Mean Corpuscular Volume 93 fl (79-97); Platelet Count 154 K/mm3 (140-440); Red Blood Count 2.89 M/mm3 (3.65-5.03); Red Cell Distribution Width 19.3 % (13.2-15.2)
[2019-09-02 15:26] LABS: Calcium 8.2 mg/dL (8.4-10.2)
[2019-09-02] MEDS ORDERED: VANCOMYCIN 2,000 MG in SODIUM CHLORIDE 0.9% 500 ML 500 ML IV ONE (16:00)
[2019-09-02] MEDS ORDERED: VANCOMYCIN PHARMACY TO DOSE IV SCH (16:00)
[2019-09-02] MEDS: metroNIDAZOLE/NS 500 MG/100 ML 500 MG/100 ML BAG IV SCH (17:15)
[2019-09-02] MEDS: CEFEPIME/NS 2 GM/100 ML 2 GM/100 ML BAG IV SCH (18:06)
[2019-09-03] MEDS: INSULIN LISPRO 100 UNIT/ML SUB-Q SCH ×5 (01:25→22:30)
[2019-09-03] MEDS: metroNIDAZOLE/NS 500 MG/100 ML 500 MG/100 ML BAG IV SCH ×3 (01:49→16:44)
[2019-09-03] MEDS: INSULIN NPH/REGULAR 70/30 INJ SUB-Q SCH ×2 (08:00→16:37)
[2019-09-03] MEDS: cloNIDine 0.2 MG TAB PO SCH ×2 (10:00→22:30)
[2019-09-03] MEDS: HEPARIN 5,000 UNIT/1 ML VIAL SUB-Q SCH ×2 (10:00→22:30)
[2019-09-03] MEDS ORDERED: VANCOMYCIN PHARMACY TO DOSE IV SCH (10:00)
[2019-09-03] MEDS: PANTOPRAZOLE 40 MG TAB PO SCH (10:01)
[2019-09-03] MEDS: oxyCODONE ER 10 MG TAB PO SCH ×2 (10:02→22:30)
[2019-09-03] MEDS: LACTULOSE 20 GM/30 ML ORAL LIQD PO SCH ×2 (10:03→22:30)
[2019-09-03] MEDS: CHOLECALCIFEROL (VIT D3) 400 UNIT TAB PO SCH (10:04)
--- NOTE | 2019-09-03 10:39 | Progress Note ---
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 Subjective Date of service: 09/03/19 Principal diagnosis: wound infection Interval history: No acute events noted overnight. No issues this AM. Having wounds checked. No recent concerns with HD, without complaints of cramping or lightheadedness. No dyspnea, edema noted. Objective - Exam Narrative Exam: General appearance: well-developed, well-nourished, drowsy but alert and arousable EENT: ATNC Respiratory: Present: Clear to Auscultation (anteriorly) Cardiology: regular, S1S2 Gastrointestinal: obese Neurologic: no focal deficit Musculoskeletal: other (bilateral LE bandaged) Psychiatric: cooperative - Vital Signs Vital signs: Vital Signs - 12hr 09/02/19 09/02/19 09/02/19 22:44 23:04 23:06 Temperature 98.3 F Pulse Rate 125 H 88 Respiratory 24 20 Rate Blood Pressure 103/73 O2 Sat by Pulse 99 Oximetry 09/03/19 09/03/19 09/03/19 00:06 04:48 10:02 Temperature 98.7 F Pulse Rate 121 H Respiratory 20 24 20 Rate Blood Pressure 98/51 O2 Sat by Pulse 96 Oximetry - Lab 09/02/19 14:38 09/02/19 14:38 Most recent lab results Calcium 8.2 mg/dL (8.4-10.2) L 09/02/19 14:38 Medications & Allergies - Medications Allergies/Adverse Reactions: Allergies No Known Allergies Allergy (Verified 03/12/19 12:23) Home Medications: Home Medications Medication Instructions Recorded Confirmed Last Taken Type Ergocalciferol(Vitamin D2)(Nf) 800 unit PO DAILY 07/06/19 08/29/19 1 Day Ago History [Vitamin D (Nf)] ~08/12/19 cloNIDine [Catapres] 0.2 mg PO BID 07/06/19 08/29/19 08/28/19 22:00 History Pantoprazole [Protonix TAB] 40 mg PO QDAY #30 tablet 07/14/19 08/29/19 08/13/19 Rx Insulin NPH/Regular [NovoLIN 70/30] 5 unit SUB-Q BIDDIAB units 08/13/19 08/29/19 Unknown Rx Insulin NPH/Regular [NovoLIN 70/30] 5 unit SUB-Q BIDDIAB #10 ml 08/13/1908/29 Unknown Rx Lactulose [Cephulac] 20 gm PO BID oral.liqd 08/13/19 08/29/19 Unknown Rx ALBUTEROL NEB's [Proventil 0.083% 2.5 mg IH Q3HRT PRN #30 nebu 09/02/19 Unknown Rx NEBS] oxyCODONE ER [oxyCONTIN ER] 10 mg PO Q12HR PRN #10 tablet 09/02/19 Unknown Rx Active Medications: Generic Name Dose Route Start Last Admin Trade Name Freq PRN Reason Stop Dose Admin Acetaminophen 650 mg 08/26/19 01:21 Tylenol PO Q4H PRN Pain MILD(1-3)/Fever >100.5/[place] Albuterol 2.5 mg 08/26/19 02:59 Proventil IH Q3HRT PRN Shortness Of Breath Cholecalciferol 800 unit 08/28/19 10:00 09/03/19 10:04 Vitamin D3 PO 800 unit QDAY WALT Administration Clonidine HCl 0.2 mg 08/27/19 22:00 09/02/19 23:04 Catapres PO 0.2 mg BID WALT Administration Dextrose 0 ml 08/26/19 02:59 08/29/19 09:31 D50w (25gm) Syringe IV 10 ml Q30MIN PRN Administration Hypoglycemia Diphenhydramine HCl 25 mg 08/29/19 11:35 Benadryl PO Q6H PRN Itching Epoetin Arias 10,000 unit 08/27/19 09:35 09/01/19 14:30 Procrit IV 10,000 unit AMBER PRN Administration hemodialysis Heparin Sodium (Porcine) 5,000 unit 08/26/19 10:00 09/02/19 23:06 Heparin SUB-Q 5,000 unit Q12HR WALT Administration Heparin Sodium (Porcine) 5,000 unit 08/27/19 09:35 Heparin IV AMBER PRN hemodialysis Sodium Chloride 100 mls @ 999 mls/hr 08/27/19 09:35 Nacl 0.9% IV AMBER PRN Hypotension Cefepime HCl 2 gm in 100 mls @ 200 mls/hr 09/02/19 18:00 09/02/19 18:06 Cefepime/Ns 2 Gm/100 Ml IV 200 mls/hr QPM WALT Administration Protocol Metronidazole 500 mg in 100 mls @ 100 mls/hr 09/02/19 16:00 09/03/19 10:36 Flagyl 500 Mg/100 Ml IV 100 mls/hr Q8H WALT Administration Protocol Insulin Human Isoph/Insulin Regular 5 unit 08/28/19 08:00 09/03/19 08:00 Humulin 70/30 SUB-Q Not Given BIDDIAB [facility] Insulin Human Lispro 0 unit 08/26/19 07:30 09/03/19 07:30 Humalog SUB-Q Not Given ACHS [facility] Protocol Lactulose 20 gm 08/27/19 22:00 09/03/19 10:03 Cephulac PO Not Given BID WALT Ondansetron HCl 4 mg 08/26/19 01:21 Zofran IV Q8H PRN Nausea And Vomiting Oxycodone HCl 5 mg 08/29/19 10:00 09/03/19 10:02 Oxycontin PO 5 mg Q12HR WALT Administration Pantoprazole Sodium 40 mg 08/27/19 10:00 09/03/19 10:01 Protonix PO 40 mg DAILY WALT Administration Sodium Chloride 10 ml 08/26/19 10:00 09/03/19 10:04 Sodium Chloride Flush Syringe 10 Ml IV 10 ml BID WALT Administration Sodium Chloride 10 ml 08/26/19 01:21 Sodium Chloride Flush Syringe 10 Ml IV PRN PRN LINE FLUSH
--- NOTE | 2019-09-03 14:10 | Progress Note ---
Assessment and Plan Cultures: 08/25/19 blood culture: NGTD 08/26 LLE wound culture: Pseudomonas, Proteus, Enterobacter 08/26 RLE wound culture: Proteus, E.coli, Enterobacter 08/26 buttock wound culture: Pseudomonas, Proteus, Enterococcus 09/02/2019 left foot dorsum: GNR A/P: 44 yo F PMHx ESRD on HD HTN, liver disease, cellulitis, bilateral leg ulcerations admitted with sepsis, possible wound infection 1) Acute sepsis - present with fevers and leukocytosis, most likely secondary to her wounds. Blood cultures with no growth. Wound cultures are polymicrobial. Flu negative. CXR normal. 2) New left foot dorsum abscess: s/p I&D at the bedside by Dr. Michelle. Cultures are being collected. Will restart antibiotics: IV Cefepime and Vancomycin, renally adjusted. Will probably need 14 days of abx given her recurrent issues. D/W Dr. Michelle and case management. F/U new cultures. 3) Bilateral LE wound and buttock wounds - s/p debridement and wound care. Cu ltures polymicrobial. Completed abx for that during this admission. 4) ESRD on HD - renally dose antibiotics as appropriate. Recs: - continue IV Cefepime and Vancomycin, renally adjusted. Will probably need 14 days of abx from the last debridement given her recurrent issues (end date: 09/16/2019). - F/U new cultures to decide final abx therapy - continue ongoing wound care as outpatient Xochilt Pitts MD, FACP [facility] ([facility] M: [phone] O: [phone] F: [phone] Subjective Date of service: 09/03/19 Principal diagnosis: wound infection Interval history: Seen at dialysis. Has no complaints. No fever. No nausea, vomiting. Objective - Exam Narrative Exam: Constitutional: awake, alert. obese Head, Ears, Nose: Normocephalic, atraumatic. External ears, nose normal Eyes: Conjunctivae/corneas clear. icterus +. No ptosis. Neck: Supple, no meningeal signs Oral: no thrush Cardiovascular: S1, S2 normal. Respiratory: Good air entry, clear to auscultation bilaterally GI: obese, abdominal wall edema, bowel sounds +, No peritoneal signs Musculoskeletal: large bilateral lower extremity wounds with dressings. HD cath +. left foot dorsum with another wound with dressing Skin: No rash or abscess Hem/Lymphatic: No palpable cervical or supraclavicular nodes. No lymphangitis Psych: mood OK, affect normal Neurological: awake, alert, oriented - Constitutional Vitals: Vital Signs Temp Pulse Resp BP Pulse Ox 97.8 F 67 18 100/57 96 09/03/19 11:01 09/03/19 14:00 09/03/19 11:01 09/03/19 14:00 09/03/19 04:48 Temperature -Last 24 Hours Temperature 97.8 F Temperature 98.7 F Temperature 98.3 F Temperature 98.0 F - Labs CBC & Chem 7: 09/02/19 14:38 09/02/19 14:38 Labs: Abnormal lab results 09/02/19 09/02/19 09/02/19 Range/Units 14:38 14:38 16:42 RBC 2.89 L (3.65-5.03) M/mm3 Hgb 8.3 L (10.1-14.3) gm/dl Hct 26.7 L (30.3-42.9) % RDW 19.3 H (13.2-15.2) % Sodium 134 L (137-145) mmol/L Potassium 3.3 L (3.6-5.0) mmol/L Chloride 96.4 L (98-107) mmol/L BUN 25 H (7-17) mg/dL Creatinine 3.9 H (0.7-1.2) mg/dL Glucose 157 H (65-100) mg/dL POC Glucose 200 H (70-105) Calcium 8.2 L (8.4-10.2) mg/dL 09/02/19 09/03/19 Range/Units 22:58 07:56 RBC (3.65-5.03) M/mm3 Hgb (10.1-14.3) gm/dl Hct (30.3-42.9) % RDW (13.2-15.2) % Sodium (137-145) mmol/L Potassium (3.6-5.0) mmol/L Chloride (98-107) mmol/L BUN (7-17) mg/dL Creatinine (0.7-1.2) mg/dL Glucose (65-100) mg/dL POC Glucose 109 H 135 H (70-105) Calcium (8.4-10.2) mg/dL
--- NOTE | 2019-09-03 15:38 | Progress Note ---
Assessment and Plan / New left foot dorsum abscess: s/p I&D at the bedside by Dr. Michelle today. Cultures are being collected. Restarted antibiotics: IV Cefepime and Vancomycin, renally adjusted. Will probably need 14 days of abx given her recurrent issues. D/W Dr. Michelle and case management. F/U new cultures. ID following /-Bilateral LE and buttock wound infection: Wound care, antibiotic antibiotics, ID following s/p surgical debridement and supportive care Treated with IV cefepime end date: 09/02/2019 to complete 7 days post debridement /-Sepsis: Sec to wounfd infection, and now with left foot dorsal abscess Wound cultures from left leg grew Pseudomonas Proteus, Escherichia coli - treated with cefepime for 7 days Antibiotic restarted today for left foot dorsal abscess -we'll follow culture and determine antibiotic duration /-Lactic Acidosis: due to sepsis /-Calciphylaxis/ Pyoderma: Supportive care,possible skin biopsy,wound care /ESRD: HD per schedule.,Nephrology following /-Amemia of chronic Disease, monitor h/h /-Morbid obesity: BMI49.1 Advised weight reduction exercise when medically stable /-Severe Malnutrition/hypoalbuminemia:, Nutrition consult /-DVT prophylaxis; Lovenox /Full code Monitor clinically and adjust the management as needed Plan of care reviewed with the patient, family members at the bedside As well as patient's nurse Disposition; follow clinically, follow surgery, ID recommendations. having difficulty managing wound at home brief History A 44-year-old female patient with significant history of end-stage renal disease on hemodialysis MWF hypertension diabetes mellitus chronic liver disease peripheral vascular disease and cellulitis bilateral lower extremities with ulc eration was admitted through emergency room with worsening shortness of breath Initial evaluation is consistent with sepsis, hypotension, end-stage renal disease on hemodialysis, lactic acidosis, bilateral lower extremity cellulitis and chronic ulcers, Started on empiric antibiotics, evaluated by surgery for wound care status with debridement, ID evaluated the patient medications optimized, family expressing difficulty to manage her. Multiple admissions in the past. Patient now developed left foot dorsum abscess -status post another debridement today, restarted antibiotics. Hospitalist Physical General appearance: Present: no acute distress, well-nourished, obese (morbidly obese) - EENT Eyes: Present: PERRL, EOM intact - Neck Neck: Present: supple, normal ROM - Respiratory Respiratory effort: normal Respiratory: bilateral: diminished, negative: rales, rhonchi, wheezing - Cardiovascular Rhythm: regular Heart Sounds: Present: S1 & S2 - Extremities Extremities: abnormal (left foot in dressing) Extremity abnormal: edema, erythema - Abdominal General gastrointestinal: soft, non-tender, non-distended, normal bowel sounds - Integumentary Integumentary: Present: clear, warm - Psychiatric Psychiatric: appropriate mood/affect, cooperative - Neurologic Neurologic: CNII-XII intact, moves all extremities Subjective Date of service: 09/02/19 Principal diagnosis: wound infection Interval history: Patient seen and examined. Medical records and medication list reviewed. No acute event overnight noted by the RN. Patient denies any chest pain or difficulty breathing. Patient is tolerating diet. Discussed plan of care at bedside with patient and her mother. Patient cannot manage her wound at home, per mother wound getting worse at home despite getting wound care Had another IND today for left foot dorsum abscess Objective - Constitutional Vitals: Vital Signs - 12hr 09/03/19 09/03/19 09/03/19 04:48 10:00 10:02 Temperature 98.7 F Pulse Rate 121 H Respiratory 24 20 20 Rate Blood Pressure 98/51 O2 Sat by Pulse 96 Oximetry 09/03/19 09/03/19 09/03/19 11:01 11:07 11:15 Temperature 97.8 F Pulse Rate 88 90 98 H Respiratory 18 Rate Blood Pressure 111/60 121/73 113/67 O2 Sat by Pulse Oximetry 09/03/19 09/03/19 09/03/19 11:30 11:45 12:00 Temperature Pulse Rate 88 79 102 H Respiratory Rate Blood Pressure 133/67 143/49 131/87 O2 Sat by Pulse Oximetry 09/03/19 09/03/19 09/03/19 12:15 12:30 12:45 Temperature Pulse Rate 91 H 90 110 H Respiratory Rate Blood Pressure 131/79 130/80 143/71 O2 Sat by Pulse Oximetry 09/03/19 09/03/19 09/03/19 13:00 13:15 13:30 Temperature Pulse Rate 90 96 H 84 Respiratory Rate Blood Pressure 130/80 142/73 154/66 O2 Sat by Pulse Oximetry 09/03/19 09/03/19 09/03/19 13:45 14:00 14:15 Temperature Pulse Rate 95 H 67 69 Respiratory Rate Blood Pressure 114/87 100/57 119/72 O2 Sat by Pulse Oximetry 09/03/19 09/03/19 14:30 14:45 Temperature Pulse Rate 70 72 Respiratory Rate Blood Pressure 120/70 118/75 O2 Sat by Pulse Oximetry - Labs CBC & Chem 7: 09/02/19 14:38 09/02/19 14:38 Labs: Abnormal lab results 09/02/19 09/02/19 09/03/19 Range/Units 16:42 22:58 07:56 POC Glucose 200 H 109 H 135 H (70-105)
--- NOTE | 2019-09-03 15:39 | Progress Note ---
Assessment and Plan / New left foot dorsum abscess: s/p I&D at the bedside by Dr. Michelle 09/02/19. Cultures are being collected. Restarted antibiotics: IV Cefepime and Vancomycin, renally adjusted. Will probably need 14 days of abx given her recurrent issues. D/W Dr. Michelle and case management. F/U new cultures. ID following /-Bilateral LE and buttock wound infection: Wound care, antibiotic antibiotics, ID following s/p surgical debridement and supportive care Treated with IV cefepime end date: 09/02/2019 to complete 7 days post debridement /-Sepsis: Sec to wounfd infection, and now with left foot dorsal abscess Wound cultures from left leg grew Pseudomonas Proteus, Escherichia coli - treated with cefepime for 7 days Antibiotic restarted today for left foot dorsal abscess -we'll follow culture and determine antibiotic duration /-Lactic Acidosis: due to sepsis /-Calciphylaxis/ Pyoderma: Supportive care,possible skin biopsy,wound care /ESRD: HD per schedule.,Nephrology following /-Amemia of chronic Disease, monitor h/h /-Morbid obesity: BMI49.1 Advised weight reduction exercise when medically stable /-Severe Malnutrition/hypoalbuminemia:, Nutrition consult /-DVT prophylaxis; Lovenox /Full code Monitor clinically and adjust the management as needed Plan of care reviewed with the patient, family members at the bedside As well as patient's nurse Disposition; follow clinically, follow surgery, ID recommendations. having diffi culty managing wound at home brief History A 44-year-old female patient with significant history of end-stage renal disease on hemodialysis MWF hypertension diabetes mellitus chronic liver disease peripheral vascular disease and cellulitis bilateral lower extremities with ulceration was admitted through emergency room with worsening shortness of breath Initial evaluation is consistent with sepsis, hypotension, end-stage renal disease on hemodialysis, lactic acidosis, bilateral lower extremity cellulitis and chronic ulcers, Started on empiric antibiotics, evaluated by surgery for wound care status with debridement, ID evaluated the patient medications optimized, family expressing difficulty to manage her. Multiple admissions in the past. Patient now developed left foot dorsum abscess -status post another debridement by Dr. Michelle, restarted antibiotics. Hospitalist Physical General appearance: Present: no acute distress, well-nourished, obese (morbidly obese) - EENT Eyes: Present: PERRL, EOM intact - Neck Neck: Present: supple, normal ROM - Respiratory Respiratory effort: normal Respiratory: bilateral: diminished, negative: rales, rhonchi, wheezing - Cardiovascular Rhythm: regular Heart Sounds: Present: S1 & S2 - Extremities Extremities: abnormal (left foot in dressing) Extremity abnormal: edema, erythema - Abdominal General gastrointestinal: soft, non-tender, non-distended, normal bowel sounds - Integumentary Integumentary: Present: clear, warm - Psychiatric Psychiatric: appropriate mood/affect, cooperative - Neurologic Neurologic: CNII-XII intact, moves all extremities Subjective Date of service: 09/03/19 Principal diagnosis: wound infection Interval history: Patient seen and examined. Medical records and medication list reviewed. No acute event overnight noted by the RN. Patient denies any chest pain or difficulty breathing. Patient is tolerating diet. Discussed plan of care at bedside with patient and her mother. Objective - Constitutional Vitals: Vital Signs - 12hr 09/03/19 09/03/19 09/03/19 04:48 10:00 10:02 Temperature 98.7 F Pulse Rate 121 H Respiratory 24 20 20 Rate Blood Pressure 98/51 O2 Sat by Pulse 96 Oximetry 09/03/19 09/03/19 09/03/19 11:01 11:07 11:15 Temperature 97.8 F Pulse Rate 88 90 98 H Respiratory 18 Rate Blood Pressure 111/60 121/73 113/67 O2 Sat by Pulse Oximetry 09/03/19 09/03/19 09/03/19 11:30 11:45 12:00 Temperature Pulse Rate 88 79 102 H Respiratory Rate Blood Pressure 133/67 143/49 131/87 O2 Sat by Pulse Oximetry 09/03/19 09/03/19 09/03/19 12:15 12:30 12:45 Temperature Pulse Rate 91 H 90 110 H Respiratory Rate Blood Pressure 131/79 130/80 143/71 O2 Sat by Pulse Oximetry 09/03/19 09/03/19 09/03/19 13:00 13:15 13:30 Temperature Pulse Rate 90 96 H 84 Respiratory Rate Blood Pressure 130/80 142/73 154/66 O2 Sat by Pulse Oximetry 09/03/19 09/03/19 09/03/19 13:45 14:00 14:15 Temperature Pulse Rate 95 H 67 69 Respiratory Rate Blood Pressure 114/87 100/57 119/72 O2 Sat by Pulse Oximetry 09/03/19 09/03/19 14:30 14:45 Temperature Pulse Rate 70 72 Respiratory Rate Blood Pressure 120/70 118/75 O2 Sat by Pulse Oximetry - Labs CBC & Chem 7: 09/02/19 14:38 09/02/19 14:38 Labs: Abnormal lab results 09/02/19 09/02/19 09/03/19 Range/Units 16:42 22:58 07:56 POC Glucose 200 H 109 H 135 H (70-105)
[2019-09-03] MEDS ORDERED: VANCOMYCIN 1,250 MG in SODIUM CHLORIDE 0.9% 250ML 250 ML IV SCH (16:00)
[2019-09-03] MEDS: CEFEPIME/NS 2 GM/100 ML 2 GM/100 ML BAG IV SCH (17:39)
[2019-09-04] MEDS: metroNIDAZOLE/NS 500 MG/100 ML 500 MG/100 ML BAG IV SCH ×4 (01:02→23:29)
[2019-09-04] MEDS: HYDROmorphone 1 MG/1 ML INJ IV PRN (01:48)
[2019-09-04] MEDS: INSULIN LISPRO 100 UNIT/ML SUB-Q SCH ×4 (08:30→23:00)
--- NOTE | 2019-09-04 12:17 | Progress Note ---
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 Denies any shortness of breath. Objective - Vital Signs Vital signs: Vital Signs - 12hr 09/04/19 01:04 Respiratory 20 Rate [chest] - General Appearance General appearance: well-developed, well-nourished, appears stated age EENT: PERRL, mucous membranes moist Neck: no JVD, no thyromegaly, no carotid bruit, supple, other (left IJ PermCath in place) Respiratory: Present: Clear to Ascultation Cardiology: regular, normal heart rate, S1S2, no murmurs Gastrointestinal: normal, normoactive bowel sounds Integumentary: other (both legs wrapped with bandage) - Lab 09/02/19 14:38 09/02/19 14:38 Most recent lab results Calcium 8.2 mg/dL (8.4-10.2) L 09/02/19 14:38 Medications & Allergies - Medications Allergies/Adverse Reactions: Allergies No Known Allergies Allergy (Verified 03/12/19 12:23) Home Medications: Home Medications Medication Instructions Recorded Confirmed Last Taken Type Ergocalciferol(Vitamin D2)(Nf) 800 unit PO DAILY 07/06/19 08/29/19 1 Day Ago History [Vitamin D (Nf)] ~08/12/19 cloNIDine [Catapres] 0.2 mg PO BID 07/06/19 08/29/19 08/28/19 22:00 History Pantoprazole [Protonix TAB] 40 mg PO QDAY #30 tablet 07/14/19 08/29/19 08/13/19 Rx Insulin NPH/Regular [NovoLIN 70/30] 5 unit SUB-Q BIDDIAB units 08/13/19 08/29/19 Unknown Rx Insulin NPH/Regular [NovoLIN 70/30] 5 unit SUB-Q BIDDIAB #10 ml 08/13/19 08/29/19 Unknown Rx Lactulose [Cephulac] 20 gm PO BID oral.liqd 08/13/19 08/29/19 Unknown Rx ALBUTEROL NEB's [Proventil 0.083% 2.5 mg IH Q3HRT PRN #30 nebu 09/02/19 Unknown Rx NEBS] oxyCODONE ER [oxyCONTIN ER] 10 mg PO Q12HR PRN #10 tablet 09/02/19 Unknown Rx Active Medications: Generic Name Dose Route Start Last Admin Trade Name Freq PRN Reason Stop Dose Admin Acetaminophen 650 mg 08/26/19 01:21 Tylenol PO Q4H PRN Pain MILD(1-3)/Fever >100.5/[place] Albuterol 2.5 mg 08/26/19 02:59 Proventil IH Q3HRT PRN Shortness Of Breath Cholecalciferol 800 unit 08/28/19 10:00 09/03/19 10:04 Vitamin D3 PO 800 unit QDAY WALT Administration Clonidine HCl 0.2 mg 08/27/19 22:00 09/03/19 22:30 Catapres PO Not Given BID WALT Dextrose 0 ml 08/26/19 02:59 08/29/19 09:31 D50w (25gm) Syringe IV 10 ml Q30MIN PRN Administration Hypoglycemia Diphenhydramine HCl 25 mg 08/29/19 11:35 09/03/19 22:35 Benadryl PO 25 mg Q6H PRN Administration Itching Epoetin Arias 10,000 unit 08/27/19 09:35 09/01/19 14:30 Procrit IV 10,000 unit AMBER PRN Administration hemodialysis Heparin Sodium (Porcine) 5,000 unit 08/26/19 10:00 09/03/19 22:30 Heparin SUB-Q 5,000 unit Q12HR WALT Administration Heparin Sodium (Porcine) 5,000 unit 08/27/19 09:35 Heparin IV AMBER PRN hemodialysis Hydromorphone HCl 1 mg 09/04/19 01:23 09/04/19 01:48 Dilaudid IV 1 mg Q6H PRN Administration Pain , Severe (7-10) Sodium Chloride 100 mls @ 999 mls/hr 08/27/19 09:35 Nacl 0.9% IV AMBER PRN Hypotension Cefepime HCl 2 gm in 100 mls @ 200 mls/hr 09/02/19 18:00 09/03/19 17:39 Cefepime/Ns 2 Gm/100 Ml IV 200 mls/hr QPM WALT Administration Protocol Metronidazole 500 mg in 100 mls @ 100 mls/hr 09/02/19 16:00 09/04/19 08:25 Flagyl 500 Mg/100 Ml IV 100 mls/hr Q8H WALT Administration Protocol Insulin Human Isoph/Insulin Regular 5 unit 08/28/19 08:00 09/03/19 16:37 Humulin 70/30 SUB-Q 5 unit BIDDIAB WALT Administration Insulin Human Lispro 0 unit 08/26/19 07:30 09/03/19 22:30 Humalog SUB-Q Not Given ACHS WALT Protocol Lactulose 20 gm 08/27/19 22:00 09/03/19 22:30 Cephulac PO 20 gm BID WALT Administration Ondansetron HCl 4 mg 08/26/19 01:21 Zofran IV Q8H PRN Nausea And Vomiting Oxycodone HCl 5 mg 08/29/19 10:00 09/03/19 22:30 Oxycontin PO 5 mg Q12HR WALT Administration Pantoprazole Sodium 40 mg 08/27/19 10:00 09/03/19 10:01 Protonix PO 40 mg DAILY WALT Administration Sodium Chloride 10 ml 08/26/19 10:00 09/03/19 22:35 Sodium Chloride Flush Syringe 10 Ml IV 10 ml BID WALT Administration Sodium Chloride 10 ml 08/26/19 01:21 Sodium Chloride Flush Syringe 10 Ml IV PRN PRN LINE FLUSH
[2019-09-04] MEDS: oxyCODONE ER 10 MG TAB PO SCH ×2 (13:08→21:45)
[2019-09-04] MEDS: CHOLECALCIFEROL (VIT D3) 400 UNIT TAB PO SCH (13:08)
[2019-09-04] MEDS: INSULIN NPH/REGULAR 70/30 INJ SUB-Q SCH ×2 (13:08→17:54)
[2019-09-04] MEDS: PANTOPRAZOLE 40 MG TAB PO SCH (13:09)
[2019-09-04] MEDS: LACTULOSE 20 GM/30 ML ORAL LIQD PO SCH ×2 (13:09→21:45)
[2019-09-04] MEDS: HEPARIN 5,000 UNIT/1 ML VIAL SUB-Q SCH ×2 (13:10→21:46)
[2019-09-04] MEDS: cloNIDine 0.2 MG TAB PO SCH ×2 (13:10→21:49)
--- NOTE | 2019-09-04 14:02 | Progress Note ---
Assessment and Plan / New left foot dorsum abscess: s/p I&D at the bedside by Dr. Michelle 09/02/19. Cultures are being collected. Restarted antibiotics: IV Cefepime and Vancomycin, renally adjusted. Will probably need 14 days of abx given her recurrent issues. D/W Dr. Michelle and case management. F/U new cultures. ID following /-Bilateral LE and buttock wound infection: Wound care, antibiotic antibiotics, ID following s/p surgical debridement and supportive care Treated with IV cefepime end date: 09/02/2019 to complete 7 days post debridement /-Sepsis: Sec to wounfd infection, and now with left foot dorsal abscess Wound cultures from left leg grew Pseudomonas Proteus, Escherichia coli - treated with cefepime for 7 days Antibiotic restarted today for left foot dorsal abscess -we'll follow culture and determine antibiotic duration /-Lactic Acidosis: due to sepsis /-Calciphylaxis/ Pyoderma: Supportive care,possible skin biopsy,wound care /ESRD: HD per schedule.,Nephrology following /-Amemia of chronic Disease, monitor h/h /-Morbid obesity: BMI49.1 Advised weight reduction exercise when medically stable /-Severe Malnutrition/hypoalbuminemia:, Nutrition consult /-DVT prophylaxis; Lovenox /Full code Monitor clinically and adjust the management as needed Plan of care reviewed with the patient, family members at the bedside As well as patient's nurse Disposition; follow clinically, follow surgery, ID recommendations. having diff iculty managing wound at home brief History A 44-year-old female patient with significant history of end-stage renal disease on hemodialysis MWF hypertension diabetes mellitus chronic liver disease peripheral vascular disease and cellulitis bilateral lower extremities with ulceration was admitted through emergency room with worsening shortness of breath Initial evaluation is consistent with sepsis, hypotension, end-stage renal disease on hemodialysis, lactic acidosis, bilateral lower extremity cellulitis and chronic ulcers, Started on empiric antibiotics, evaluated by surgery for wound care status with debridement, ID evaluated the patient medications optimized, family expressing difficulty to manage her. Multiple admissions in the past. Patient now developed left foot dorsum abscess -status post another debridement by Dr. Michelle, restarted antibiotics. Hospitalist Physical General appearance: Present: no acute distress, well-nourished, obese (morbidly obese) - EENT Eyes: Present: PERRL, EOM intact - Neck Neck: Present: supple, normal ROM - Respiratory Respiratory effort: normal Respiratory: bilateral: diminished, negative: rales, rhonchi, wheezing - Cardiovascular Rhythm: regular Heart Sounds: Present: S1 & S2 - Extremities Extremities: abnormal (left foot in dressing) Extremity abnormal: edema, erythema - Abdominal General gastrointestinal: soft, non-tender, non-distended, normal bowel sounds - Integumentary Integumentary: Present: clear, warm - Psychiatric Psychiatric: appropriate mood/affect, cooperative - Neurologic Neurologic: CNII-XII intact, moves all extremities Subjective Date of service: 09/04/19 Principal diagnosis: wound infection Interval history: Patient seen and examined. Medical records and medication list reviewed. No acute event overnight noted by the RN. Patient denies any chest pain or difficulty breathing. Patient is tolerating diet. Discussed plan of care at bedside with patient and her mother. Objective - Constitutional Vitals: Vital Signs - 12hr 09/04/19 06:07 Temperature 98.7 F Pulse Rate 107 H Respiratory 22 Rate Blood Pressure 108/57 O2 Sat by Pulse 97 Oximetry - Labs CBC & Chem 7: 09/05/19 07:09 09/05/19 07:09 Labs: Abnormal lab results 09/03/19 09/03/19 09/04/19 Range/Units 16:28 21:30 09:17 POC Glucose 157 H 124 H 172 H (70-105)
[2019-09-04] MEDS: CEFEPIME/NS 2 GM/100 ML 2 GM/100 ML BAG IV SCH (18:31)
[2019-09-05 08:01] LABS: Calcium 8.4 mg/dL (8.4-10.2)
[2019-09-05 08:28] LABS: Hematocrit 26.9 % (30.3-42.9); Hemoglobin 8.4 gm/dl (10.1-14.3); Mean Corpuscular HGB Conc 31 % (30-34); Mean Corpuscular Volume 92 fl (79-97); Platelet Count 147 K/mm3 (140-440); Red Blood Count 2.93 M/mm3 (3.65-5.03)
[2019-09-05 08:34] LABS: Red Cell Distribution Width 21.8 % (13.2-15.2)
[2019-09-05] MEDS: INSULIN LISPRO 100 UNIT/ML SUB-Q SCH ×3 (09:45→18:17)
[2019-09-05 10:01] LABS: Basophils % (Manual) 0 % (0.0-1.8); Total Cells Counted 100
[2019-09-05 10:02] LABS: Hypochromasia Few; Platelet Estimate Consistent w Auto; Target Cells 2+
[2019-09-05] MEDS: INSULIN NPH/REGULAR 70/30 INJ SUB-Q SCH ×2 (10:45→18:16)
[2019-09-05] MEDS: LACTULOSE 20 GM/30 ML ORAL LIQD PO SCH (10:46)
[2019-09-05] MEDS: oxyCODONE ER 10 MG TAB PO SCH (10:46)
[2019-09-05] MEDS: PANTOPRAZOLE 40 MG TAB PO SCH (10:47)
[2019-09-05] MEDS: HEPARIN 5,000 UNIT/1 ML VIAL SUB-Q SCH (10:47)
[2019-09-05] MEDS: cloNIDine 0.2 MG TAB PO SCH (10:47)
[2019-09-05] MEDS: CHOLECALCIFEROL (VIT D3) 400 UNIT TAB PO SCH (10:48)
[2019-09-05] MEDS: metroNIDAZOLE/NS 500 MG/100 ML 500 MG/100 ML BAG IV SCH ×2 (10:49→16:42)
--- NOTE | 2019-09-05 12:18 | Progress Note ---
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 Denies any shortness of breath. Objective - Vital Signs Vital signs: Vital Signs - 12hr 09/05/19 05:16 Temperature 98.2 F Pulse Rate 95 H Respiratory 18 Rate Blood Pressure 117/47 O2 Sat by Pulse 98 Oximetry - General Appearance General appearance: well-developed, well-nourished, appears stated age EENT: PERRL, mucous membranes moist Neck: no JVD, no thyromegaly, no carotid bruit, supple, other (IJ PermCath in place) Respiratory: Present: Clear to Ascultation Cardiology: regular, normal heart rate, S1S2, no murmurs Gastrointestinal: normal, normoactive bowel sounds Integumentary: other (bilateral pitting edema. Both legs wrapped with bandage) - Lab 09/05/19 07:09 09/05/19 07:09 Most recent lab results Calcium 8.4 mg/dL (8.4-10.2) 09/05/19 07:09 Medications & Allergies - Medications Allergies/Adverse Reactions: Allergies No Known Allergies Allergy (Verified 03/12/19 12:23) Home Medications: Home Medications Medication Instructions Recorded Confirmed Last Taken Type Ergocalciferol(Vitamin D2)(Nf) 800 unit PO DAILY 07/06/19 08/29/19 1 Day Ago History [Vitamin D (Nf)] ~08/12/19 cloNIDine [Catapres] 0.2 mg PO BID 07/06/19 08/29/19 08/28/19 22:00 History Pantoprazole [Protonix TAB] 40 mg PO QDAY #30 tablet 07/14/19 08/29/1908/13/19 Rx Insulin NPH/Regular [NovoLIN 70/30] 5 unit SUB-Q BIDDIAB units 08/13/19 08/29/19 Unknown Rx Insulin NPH/Regular [NovoLIN 70/30] 5 unit SUB-Q BIDDIAB #10 ml 08/13/19 08/29/19 Unknown Rx Lactulose [Cephulac] 20 gm PO BID oral.liqd 08/13/19 08/29/19 Unknown Rx ALBUTEROL NEB's [Proventil 0.083% 2.5 mg IH Q3HRT PRN #30 nebu 09/02/19 Unknown Rx NEBS] oxyCODONE ER [oxyCONTIN ER] 10 mg PO Q12HR PRN #10 tablet 09/02/19 Unknown Rx Active Medications: Generic Name Dose Route Start Last Admin Trade Name Freq PRN Reason Stop Dose Admin Acetaminophen 650 mg 08/26/19 01:21 Tylenol PO Q4H PRN Pain MILD(1-3)/Fever >100.5/[place] Albuterol 2.5 mg 08/26/19 02:59 Proventil IH Q3HRT PRN Shortness Of Breath Cholecalciferol 800 unit 08/28/19 10:00 09/05/19 10:48 Vitamin D3 PO 800 unit QDAY WALT Administration Clonidine HCl 0.2 mg 08/27/19 22:00 09/05/19 10:47 Catapres PO 0.2 mg BID WALT Administration Dextrose 0 ml 08/26/19 02:59 08/29/19 09:31 D50w (25gm) Syringe IV 10 ml Q30MIN PRN Administration Hypoglycemia Diphenhydramine HCl 25 mg 08/29/19 11:35 09/03/19 22:35 Benadryl PO 25 mg Q6H PRN Administration Itching Epoetin Arias 10,000 unit 08/27/19 09:35 09/01/19 14:30 Procrit IV 10,000 unit AMBER PRN Administration hemodialysis Heparin Sodium (Porcine) 5,000 unit 08/26/19 10:00 09/05/19 10:47 Heparin SUB-Q 5,000 unit Q12HR WALT Administration Heparin Sodium (Porcine) 5,000 unit 08/27/19 09:35 Heparin IV AMBER PRN hemodialysis Hydromorphone HCl 1 mg 09/04/19 01:23 09/04/19 01:48 Dilaudid IV 1 mg Q6H PRN Administration Pain , Severe (7-10) Sodium Chloride 100 mls @ 999 mls/hr 08/27/19 09:35 Nacl 0.9% IV AMBER PRN Hypotension Cefepime HCl 2 gm in 100 mls @ 200 mls/hr 09/02/19 18:00 09/04/19 18:31 Cefepime/Ns 2 Gm/100 Ml IV 200 mls/hr QPM WALT Administration Protocol Metronidazole 500 mg in 100 mls @ 100 mls/hr 09/02/19 16:00 09/05/19 10:49 Flagyl 500 Mg/100 Ml IV 100 mls/hr Q8H WALT Administration Protocol Insulin Human Isoph/Insulin Regular 5 unit 08/28/19 08:00 09/05/19 10:45 Humulin 70/30 SUB-Q 5 unit BIDDIAB WALT Administration Insulin Human Lispro 0 unit 08/26/19 07:30 09/05/19 09:45 Humalog SUB-Q 2 unit ACHS WALT Administration Protocol Lactulose 20 gm 08/27/19 22:00 09/05/19 10:46 Cephulac PO 20 gm BID WALT Administration Ondansetron HCl 4 mg 08/26/19 01:21 Zofran IV Q8H PRN Nausea And Vomiting Oxycodone HCl 5 mg 08/29/19 10:00 09/05/19 10:46 Oxycontin PO 5 mg Q12HR WALT Administration Pantoprazole Sodium 40 mg 08/27/19 10:00 09/05/19 10:47 Protonix PO 40 mg DAILY WALT Administration Sodium Chloride 10 ml 08/26/19 10:00 09/05/19 10:49 Sodium Chloride Flush Syringe 10 Ml IV 10 ml BID WALT Administration Sodium Chloride 10 ml 08/26/19 01:21 Sodium Chloride Flush Syringe 10 Ml IV PRN PRN LINE FLUSH
--- NOTE | 2019-09-05 13:55 | Progress Note ---
Assessment and Plan / New left foot dorsum abscess: s/p I&D at the bedside by Dr. Michelle 09/02/19. Cultures are being collected. Restarted antibiotics: IV Cefepime and Vancomycin, renally adjusted. Will probably need 14 days of abx given her recurrent issues. D/W Dr. Michelle and case management. F/U new cultures. ID following /-Bilateral LE and buttock wound infection: Wound care, antibiotic antibiotics, ID following s/p surgical debridement and supportive care Treated with IV cefepime end date: 09/02/2019 to complete 7 days post debridement /-Sepsis: Sec to wounfd infection, and now with left foot dorsal abscess Wound cultures from left leg grew Pseudomonas Proteus, Escherichia coli - treated with cefepime for 7 days Antibiotic restarted today for left foot dorsal abscess -we'll follow culture and determine antibiotic duration /-Lactic Acidosis: due to sepsis /-Calciphylaxis/ Pyoderma: Supportive care,possible skin biopsy,wound care /ESRD: HD per schedule.,Nephrology following /-Amemia of chronic Disease, monitor h/h /-Morbid obesity: BMI49.1 Advised weight reduction exercise when medically stable /-Severe Malnutrition/hypoalbuminemia:, Nutrition consult /-DVT prophylaxis; Lovenox /Full code Monitor clinically and adjust the management as needed Plan of care reviewed with the patient, family members at the bedside As well as patient's nurse Disposition; follow clinically, follow surgery, ID recommendations. having diff iculty managing wound at home brief History A 44-year-old female patient with significant history of end-stage renal disease on hemodialysis MWF hypertension diabetes mellitus chronic liver disease peripheral vascular disease and cellulitis bilateral lower extremities with ulceration was admitted through emergency room with worsening shortness of breath Initial evaluation is consistent with sepsis, hypotension, end-stage renal disease on hemodialysis, lactic acidosis, bilateral lower extremity cellulitis and chronic ulcers, Started on empiric antibiotics, evaluated by surgery for wound care status with debridement, ID evaluated the patient medications optimized, family expressing difficulty to manage her. Multiple admissions in the past. Patient now developed left foot dorsum abscess -status post another debridement by Dr. Michelle, restarted antibiotics. Hospitalist Physical General appearance: Present: no acute distress, well-nourished, obese (morbidly obese) - EENT Eyes: Present: PERRL, EOM intact - Neck Neck: Present: supple, normal ROM - Respiratory Respiratory effort: normal Respiratory: bilateral: diminished, negative: rales, rhonchi, wheezing - Cardiovascular Rhythm: regular Heart Sounds: Present: S1 & S2 - Extremities Extremities: abnormal (left foot in dressing) Extremity abnormal: edema, erythema - Abdominal General gastrointestinal: soft, non-tender, non-distended, normal bowel sounds - Integumentary Integumentary: Present: clear, warm - Psychiatric Psychiatric: appropriate mood/affect, cooperative - Neurologic Neurologic: CNII-XII intact, moves all extremities Subjective Date of service: 09/05/19 Principal diagnosis: wound infection Interval history: Patient seen and examined. Medical records and medication list reviewed. No acute event overnight noted by the RN. Patient denies any chest pain or difficulty breathing. Patient is tolerating diet. Discussed plan of care at bedside with patient and her mother. Objective - Constitutional Vitals: Vital Signs - 12hr 09/05/19 09/05/19 05:16 12:47 Temperature 98.2 F 98.2 F Pulse Rate 95 H 98 H Respiratory 18 16 Rate Blood Pressure 117/47 118/53 O2 Sat by Pulse 98 99 Oximetry - Labs CBC & Chem 7: 09/05/19 07:09 09/05/19 07:09 Labs: Abnormal lab results 09/04/19 09/04/19 09/04/19 Range/Units 12:58 16:42 22:15 WBC (4.5-11.0) K/mm3 RBC (3.65-5.03) M/mm3 Hgb (10.1-14.3) gm/dl Hct (30.3-42.9) % RDW (13.2-15.2) % Eosinophils % (Manual) (0.0-4.3) % Seg Neutrophils # Man (1.8-7.7) K/mm3 Eosinophils # (Manual) (0.0-0.4) K/mm3 BUN (7-17) mg/dL Creatinine (0.7-1.2) mg/dL Glucose (65-100) mg/dL POC Glucose 190 H 189 H 155 H (70-105) 09/05/19 09/05/19 09/05/19 Range/Units 07:09 07:09 09:13 WBC 12.3 H (4.5-11.0) K/mm3 RBC 2.93 L (3.65-5.03) M/mm3 Hgb 8.4 L (10.1-14.3) gm/dl Hct 26.9 L (30.3-42.9) % RDW 21.8 H (13.2-15.2) % Eosinophils % (Manual) 9.0 H (0.0-4.3) % Seg Neutrophils # Man 8.6 H (1.8-7.7) K/mm3 Eosinophils # (Manual) 1.1 H (0.0-0.4) K/mm3 BUN 25 H (7-17) mg/dL Creatinine 4.1 H (0.7-1.2) mg/dL Glucose 143 H (65-100) mg/dL POC Glucose 164 H (70-105) // Range/Units 12:38 WBC (4.5-11.0) K/mm3 RBC (3.65-5.03) M/mm3 Hgb (10.1-14.3) gm/dl Hct (30.3-42.9) % RDW (13.2-15.2) % Eosinophils % (Manual) (0.0-4.3) % Seg Neutrophils # Man (1.8-7.7) K/mm3 Eosinophils # (Manual) (0.0-0.4) K/mm3 BUN (7-17) mg/dL Creatinine (0.7-1.2) mg/dL Glucose (65-100) mg/dL POC Glucose 255 H (70-105)
[2019-09-05] MEDS: CEFEPIME/NS 2 GM/100 ML 2 GM/100 ML BAG IV SCH (17:01)
[2019-09-06] MEDS: cloNIDine 0.2 MG TAB PO SCH ×2 (00:11→10:35)
[2019-09-06] MEDS: oxyCODONE ER 10 MG TAB PO SCH ×3 (00:12→22:14)
[2019-09-06] MEDS: LACTULOSE 20 GM/30 ML ORAL LIQD PO SCH ×2 (00:14→10:35)
[2019-09-06] MEDS: INSULIN LISPRO 100 UNIT/ML SUB-Q SCH ×5 (01:50→22:09)
[2019-09-06] MEDS: metroNIDAZOLE/NS 500 MG/100 ML 500 MG/100 ML BAG IV SCH ×3 (01:58→15:04)
[2019-09-06] MEDS: HEPARIN 5,000 UNIT/1 ML VIAL SUB-Q SCH ×3 (02:06→22:16)
[2019-09-06] MEDS: HYDROmorphone 1 MG/1 ML INJ IV PRN ×2 (09:09→17:06)
[2019-09-06] MEDS: INSULIN NPH/REGULAR 70/30 INJ SUB-Q SCH ×2 (09:10→17:51)
[2019-09-06] MEDS ORDERED: SODIUM CHLORIDE*PRIMING MACHINE ONLY FOR DIALYSIS MC ONE (11:25)
[2019-09-06] MEDS: EPOETIN ALFA 10,000 UNIT/1 ML INJ IV PRN (13:33)
[2019-09-06] MEDS: PANTOPRAZOLE 40 MG TAB PO SCH (14:55)
[2019-09-06] MEDS: CHOLECALCIFEROL (VIT D3) 400 UNIT TAB PO SCH (14:55)
--- NOTE | 2019-09-06 15:28 | Progress Note ---
Assessment and Plan / New left foot dorsum abscess: s/p I&D at the bedside by Dr. Michelle 09/02/19. Cultures are being collected. Restarted antibiotics: IV Cefepime and Vancomycin, renally adjusted. Will need 21 days of abx given her recurrent issues. D/W Dr. Michelle and case management. F/U new cultures. ID following /-Bilateral LE and buttock wound infection: Wound care, antibiotic antibiotics, ID following s/p surgical debridement and supportive care Treated with IV cefepime end date: 09/02/2019 to complete 7 days post debridement /-Sepsis: Sec to wounfd infection, and now with left foot dorsal abscess Wound cultures from left leg grew Pseudomonas Proteus, Escherichia coli - treated with cefepime for 7 days Antibiotic restarted today for left foot dorsal abscess -we'll follow culture and determine antibiotic duration /-Lactic Acidosis: due to sepsis /-Calciphylaxis/ Pyoderma: Supportive care,possible skin biopsy,wound care /ESRD: HD per schedule.,Nephrology following /-Amemia of chronic Disease, monitor h/h /-Morbid obesity: BMI49.1 Advised weight reduction exercise when medically stable /-Severe Malnutrition/hypoalbuminemia:, Nutrition consult /-DVT prophylaxis; Lovenox /Full code Monitor clinically and adjust the management as needed Plan of care reviewed with the patient, family members at the bedside As well as patient's nurse Disposition; follow clinically, follow surgery, ID recommendations. having difficulty managing wound at home brief History A 44-year-old female patient with significant history of end-stage renal disease on hemodialysis MWF hypertension diabetes mellitus chronic liver disease peripheral vascular disease and cellulitis bilateral lower extremities with ulceration was admitted through emergency room with worsening shortness of breath. Initial evaluation is consistent with sepsis, hypotension, end-stage renal disease on hemodialysis, lactic acidosis, bilateral lower extremity cellulitis and chronic ulcers, Started on empiric antibiotics, evaluated by surgery for wound care status with debridement, ID evaluated the patient medications optimized, family expressing difficulty to manage her. Multiple admissions in the past. Patient now developed left foot dorsum abscess -status post another debridement by Dr. Michelle, restarted antibiotics. Hospitalist Physical General appearance: Present: no acute distress, well-nourished, obese (morbidly obese) - EENT Eyes: Present: PERRL, EOM intact - Neck Neck: Present: supple, normal ROM - Respiratory Respiratory effort: normal Respiratory: bilateral: diminished, negative: rales, rhonchi, wheezing - Cardiovascular Rhythm: regular Heart Sounds: Present: S1 & S2 - Extremities Extremities: abnormal (left foot in dressing) Extremity abnormal: edema, erythema - Abdominal General gastrointestinal: soft, non-tender, non-distended, normal bowel sounds - Integumentary Integumentary: Present: clear, warm - Psychiatric Psychiatric: appropriate mood/affect, cooperative - Neurologic Neurologic: CNII-XII intact, moves all extremities Subjective Date of service: 09/06/19 Principal diagnosis: wound infection Interval history: Patient seen and examined. Medical records and medication list reviewed. No acute event overnight noted by the RN. Patient denies any chest pain or difficulty breathing. Patient is tolerating diet. Discussed plan of care at bedside with patient and her mother. Objective - Constitutional Vitals: Vital Signs - 12hr 09/06/19 09/06/19 09/06/19 04:53 09:30 09:45 Temperature 98.5 F 99.1 F Pulse Rate 101 H 120 H 133 H Respiratory 18 18 Rate Blood Pressure 108/55 125/50 85/53 O2 Sat by Pulse 98 Oximetry 09/06/19 09/06/19 09/06/19 10:00 10:15 10:30 Temperature Pulse Rate 120 H 115 H 115 H Respiratory Rate Blood Pressure 112/48 100/29 101/54 O2 Sat by Pulse Oximetry 09/06/19 09/06/19 09/06/19 10:45 11:00 11:15 Temperature Pulse Rate 123 H 98 H 121 H Respiratory Rate Blood Pressure 127/59 111/31 102/58 O2 Sat by Pulse Oximetry 09/06/19 09/06/19 09/06/19 11:30 11:45 12:00 Temperature Pulse Rate 81 87 104 H Respiratory Rate Blood Pressure 109/52 127/53 108/48 O2 Sat by Pulse Oximetry 09/06/19 09/06/19 09/06/19 12:15 12:30 12:45 Temperature Pulse Rate 120 H 120 H 107 H Respiratory Rate Blood Pressure 111/58 97/42 123/45 O2 Sat by Pulse Oximetry 09/06/19 09/06/19 13:00 13:15 Temperature Pulse Rate 103 H 117 H Respiratory Rate Blood Pressure 128/45 91/39 O2 Sat by Pulse Oximetry - Labs CBC & Chem 7: 09/05/19 07:09 09/05/19 07:09 Labs: Abnormal lab results 09/05/19 09/05/19 09/06/19 Range/Units 16:11 22:06 07:50 POC Glucose 186 H 124 H 175 H (70-105)
[2019-09-06] MEDS ORDERED: VANCOMYCIN/NS 1 GM/250 ML 1 GM/250 ML BAG IV ONE (16:00)
--- NOTE | 2019-09-06 16:11 | Progress Note ---
Assessment and Plan - Patient Problems (1) End stage renal disease on dialysis Current Visit: Yes Status: Chronic Plan to address problem: END-STAGE RENAL DISEASE cONTINUE HEMODIALYSIS Friday. friday (2) Calciphylaxis Current Visit: Yes Status: Acute Plan to address problem: POSSIBLE CALCIPHYLAXIS WAS REFERRED FOR HYPERBARIC TREATMENTS HOWEVER, THIS HAS BEING ON HOLD SINCE rECENT CARDIAC ARREST'S WE'LL NEED SODIUM THIOSULFATE WITH DIALYSIS (3) Sepsis Current Visit: Yes Status: Acute Qualifiers: Sepsis type: sepsis due to unspecified organism Sepsis acute organ dysfunction status: unspecified Qualified Code(s): A41.9 - Sepsis, unspecified organism Plan to address problem: SEPSIS SECONDARY TO INFECTED LOWER EXTREMITY ULCERS. CONTINUED BROAD-SPECTRUM ANTIBIOTICS (4) Bilateral leg ulcer Current Visit: No Status: Acute Plan to address problem: BILATERAL LOWER EXTREMITY WOUNDS WITH POLYMICROBIAL GROWTH CONTINUE ANTIBIOTICS Subjective Principal diagnosis: wound infection Interval history: 44-year-old lady wiTH diabetes mellitus type2, hypertension, ESRD ON HEMODIALYSIS, WITH HISTORY OF BACTEREMIA, BILATERAL LOWER XTREMITIES INFECTION I ATTEST i SAW THE pATIENT ON HEMODIALYSIS SHE IS AWAKE AND ALERT WAS NOTED TO BE TACHYCARDIC Objective - Vital Signs Vital signs: Vital Signs - 12hr 09/06/19 09/06/19 09/06/19 04:53 09:30 09:45 Temperature 98.5 F 99.1 F Pulse Rate 101 H 120 H 133 H Respiratory 18 18 Rate Blood Pressure 108/55 125/50 85/53 O2 Sat by Pulse 98 Oximetry 09/06/19 09/06/19 09/06/19 10:00 10:15 10:30 Temperature Pulse Rate 120 H 115 H 115 H Respiratory Rate Blood Pressure 112/48 100/29 101/54 O2 Sat by Pulse Oximetry 09/06/19 09/06/19 09/06/19 10:45 11:00 11:15 Temperature Pulse Rate 123 H 98 H 121 H Respiratory Rate Blood Pressure 127/59 111/31 102/58 O2 Sat by Pulse Oximetry 09/06/19 09/06/19 09/06/19 11:30 11:45 12:00 Temperature Pulse Rate 81 87 104 H Respiratory Rate Blood Pressure 109/52 127/53 108/48 O2 Sat by Pulse Oximetry 09/06/19 09/06/19 09/06/19 12:15 12:30 12:45 Temperature Pulse Rate 120 H 120 H 107 H Respiratory Rate Blood Pressure 111/58 97/42 123/45 O2 Sat by Pulse Oximetry 09/06/19 09/06/19 09/06/19 13:00 13:15 14:29 Temperature Pulse Rate 103 H 117 H Respiratory Rate Blood Pressure 128/45 91/39 107/59 O2 Sat by Pulse Oximetry 09/06/19 15:47 Temperature 99.3 F Pulse Rate 111 H Respiratory 16 Rate Blood Pressure 121/65 O2 Sat by Pulse 98 Oximetry - General Appearance General appearance: obese, chronically ill EENT: ATNC, PERRL Neck: no JVD Respiratory: Present: Clear to Ascultation Cardiology: regular, S1S2 Gastrointestinal: obese Integumentary: other (MULTIPLE SHALLOW ULCERS NOTED. BILATERAL LOWER EXXTREMITY DRESSINGS) Neurologic: alert and oriented x3, CN 3-12 intact - Lab 09/05/19 07:09 09/05/19 07:09 Most recent lab results Calcium 8.4 mg/dL (8.4-10.2) 09/05/19 07:09 - Imaging Chest x-ray: image reviewed Medications & Allergies - Medications Allergies/Adverse Reactions: Allergies No Known Allergies Allergy (Verified 03/12/19 12:23) Home Medications: Home Medications Medication Instructions Recorded Confirmed Last Taken Type Ergocalciferol(Vitamin D2)(Nf) 800 unit PO DAILY 07/06/19 08/29/19 1 Day Ago History [Vitamin D (Nf)] ~08/12/19 cloNIDine [Catapres] 0.2 mg PO BID 07/06/19 08/29/19 08/28/19 22:00 History Pantoprazole [Protonix TAB] 40 mg PO QDAY #30 tablet 07/14/19 08/29/19 08/13/19 Rx Insulin NPH/Regular [NovoLIN 70/30] 5 unit SUB-Q BIDDIAB units 08/13/19 08/29/19 Unknown Rx Insulin NPH/Regular [NovoLIN 70/30] 5 unit SUB-Q BIDDIAB #10 ml 08/13/19 08/29/19 Unknown Rx Lactulose [Cephulac] 20 gm PO BID oral.liqd 08/13/19 08/29/19 Unknown Rx ALBUTEROL NEB's [Proventil 0.083% 2.5 mg IH Q3HRT PRN #30 nebu 09/02/19 Unknown Rx NEBS] oxyCODONE ER [oxyCONTIN ER] 10 mg PO Q12HR PRN #10 tablet 09/02/19 Unknown Rx Active Medications: Generic Name Dose Route Start Last Admin Trade Name Gumeq PRN Reason Stop Dose Admin Acetaminophen 650 mg 08/26/19 01:21 Tylenol PO Q4H PRN Pain MILD(1-3)/Fever >100.5/[place] Albuterol 2.5 mg 08/26/19 02:59 Proventil IH Q3HRT PRN Shortness Of Breath Cholecalciferol 800 unit 08/28/19 10:00 09/06/19 14:55 Vitamin D3 PO 800 unit QDAY WALT Administration Clonidine HCl 0.2 mg 08/27/19 22:00 09/06/19 10:35 Catapres PO Not Given BID WALT Dextrose 0 ml 08/26/19 02:59 08/29/19 09:31 D50w (25gm) Syringe IV 10 ml Q30MIN PRN Administration Hypoglycemia Diphenhydramine HCl 25 mg 08/29/19 11:35 09/03/19 22:35 Benadryl PO 25 mg Q6H PRN Administration Itching Epoetin Arias 10,000 unit 08/27/19 09:35 09/06/19 13:33 Procrit IV 10,000 unit AMBER PRN Administration hemodialysis Heparin Sodium (Porcine) 5,000 unit 08/26/19 10:00 09/06/19 10:35 Heparin SUB-Q Not Given Q12HR WALT Heparin Sodium (Porcine) 5,000 unit 08/27/19 09:35 Heparin IV AMBER PRN hemodialysis Hydromorphone HCl 1 mg 09/04/19 01:23 09/06/19 09:09 Dilaudid IV 1 mg Q6H PRN Administration Pain , Severe (7-10) Sodium Chloride 100 mls @ 999 mls/hr 08/27/19 09:35 Nacl 0.9% IV AMBER PRN Hypotension Cefepime HCl 2 gm in 100 mls @ 200 mls/hr 09/02/19 18:00 09/05/19 17:01 Cefepime/Ns 2 Gm/100 Ml IV 200 mls/hr QPM WALT Administration Protocol Metronidazole 500 mg in 100 mls @ 100 mls/hr 09/02/19 16:00 11/18/19 15:04 Flagyl 500 Mg/100 Ml IV 100 mls/hr Q8H WALT Administration Protocol Vancomycin HCl 1 gm in 250 mls @ 167.007 mls/hr 09/06/19 16:00 Vancomycin/Ns 1 Gm/250 Ml IV 09/06/19 17:29 ONCE ONE Insulin Human Isoph/Insulin Regular 5 unit 08/28/19 08:00 09/06/19 09:10 Humulin 70/30 SUB-Q 5 unit BIDDIAB WALT Administration Insulin Human Lispro 0 unit 08/26/19 07:30 09/06/19 11:30 Humalog SUB-Q Not Given ACHS [facility] Protocol Lactulose 20 gm 08/27/19 22:00 09/06/19 10:35 Cephulac PO Not Given BID WALT Ondansetron HCl 4 mg 08/26/19 01:21 Zofran IV Q8H PRN Nausea And Vomiting Oxycodone HCl 5 mg 08/29/19 10:00 09/06/19 10:35 Oxycontin PO Not Given Q12HR [facility] Pantoprazole Sodium 40 mg 08/27/19 10:00 09/06/19 14:55 Protonix PO 40 mg DAILY WALT Administration Sodium Chloride 10 ml 08/26/19 10:00 09/06/19 14:56 Sodium Chloride Flush Syringe 10 Ml IV 10 ml BID WALT Administration Sodium Chloride 10 ml 08/26/19 01:21 Sodium Chloride Flush Syringe 10 Ml IV PRN PRN LINE FLUSH
--- NOTE | 2019-09-06 17:52 | Progress Note ---
Assessment and Plan Culture: 08/25/19 blood culture: NGTD 08/26 LLE wound culture: Pseudomonas, Proteus, Enterobacter 08/26 RLE wound culture: Proteus, E.coli, Enterobacter 08/26 buttock wound culture: Pseudomonas, Proteus, Enterococcus 09/02/2019 left foot dorsum: E coli pansensitive A/P: 44 yo F PMHx ESRD on HD HTN, liver disease, cellulitis, bilateral leg ulcerations admitted with sepsis, possible wound infection 1) Acute sepsis - fever resolved, leukocytosis better, most likely secondary to her wounds. 2) New left foot dorsum abscess: s/p I&D at the bedside by Dr. Michelle. Cultures are E coli. 3) Bilateral LE wound and buttock wounds - s/p debridement and wound care. Cultures polymicrobial. Treated with ceftazidime/vanco iv on HD x 7 days till 09/02. Completed abx for that during this admission. 4) ESRD on HD - renally dose antibiotics as appropriate. Recs: - continue IV Cefepime for now - stop vancomycin - continue ongoing wound care as outpatient - at discharge will treat with ceftazidime 2 gm IV after HD on Friday, 2 gm IV after HD on Friday and 3 gm IV after HD on Friday for 3 weeks till 09/23/2019 (complicated wound with tendon exposure) - at risk for amputation Will follow. Thanks for consultation Olivia Lipscomb MD Infectious Diseases Drain Tile Press Operator [facility] ([facility]) M [phone] O [phone] Subjective Date of service: 09/06/19 Principal diagnosis: wound infection Interval history: feels ok c/o itching no fever Objective - Exam Narrative Exam: Constitutional: awake, alert. obese Head, Ears, Nose: Normocephalic, atraumatic. External ears, nose normal Eyes: Conjunctivae/corneas clear. icterus +. No ptosis. Neck: Supple, no meningeal signs Oral: no thrush Cardiovascular: S1, S2 normal. Respiratory: Good air entry, clear to auscultation bilaterally GI: obese, abdominal wall edema, bowel sounds +, No peritoneal signs Musculoskeletal: large bilateral lower extremity wounds with dressings. HD cath +. left foot dorsum with another wound with dressing Skin: No rash or abscess Hem/Lymphatic: No palpable cervical or supraclavicular nodes. No lymphangitis Psych: mood OK, affect normal Neurological: awake, alert, oriented - Constitutional Vitals: Vital Signs Temp Pulse Resp BP Pulse Ox 99.3 F 111 H 16 121/65 98 09/06/19 15:47 09/06/19 15:47 09/06/19 15:47 09/06/19 15:47 09/06/19 15:47 Temperature -Last 24 Hours Temperature 99.3 F Temperature 99.1 F Temperature 98.5 F Temperature 97.9 F - Labs CBC & Chem 7: 09/05/19 07:09 09/05/19 07:09 Labs: Abnormal lab results 09/05/19 09/06/19 Range/Units 22:06 07:50 POC Glucose 124 H 175 H (70-105)
[2019-09-06] MEDS: CEFEPIME/NS 2 GM/100 ML 2 GM/100 ML BAG IV SCH (20:53)
[2019-09-07] MEDS: LACTULOSE 20 GM/30 ML ORAL LIQD PO SCH ×2 (00:13→10:24)
[2019-09-07] MEDS: metroNIDAZOLE/NS 500 MG/100 ML 500 MG/100 ML BAG IV SCH ×2 (00:26→08:43)
[2019-09-07] MEDS: cloNIDine 0.2 MG TAB PO SCH ×2 (00:33→10:21)
[2019-09-07] MEDS: INSULIN LISPRO 100 UNIT/ML SUB-Q SCH (08:38)
[2019-09-07] MEDS: INSULIN NPH/REGULAR 70/30 INJ SUB-Q SCH (08:45)
[2019-09-07] MEDS: PANTOPRAZOLE 40 MG TAB PO SCH (10:22)
[2019-09-07] MEDS: oxyCODONE ER 10 MG TAB PO SCH (10:23)
--- NOTE | 2019-09-07 10:23 | Progress Note ---
Assessment and Plan - Patient Problems (1) End stage renal disease on dialysis Current Visit: Yes Status: Chronic Plan to address problem: END-STAGE RENAL DISEASE cONTINUE HEMODIALYSIS Friday. friday (2) Calciphylaxis Current Visit: Yes Status: Acute Plan to address problem: POSSIBLE CALCIPHYLAXIS WAS REFERRED FOR HYPERBARIC TREATMENTS HOWEVER, THIS HAS BEING ON HOLD SINCE rECENT CARDIAC ARREST'S WE'LL NEED SODIUM THIOSULFATE WITH DIALYSIS Plan for aggressive dialysis while the patient Check phosphorus and PTH AVOID vitamin D supplementation. (3) Sepsis Current Visit: Yes Status: Acute Qualifiers: Sepsis type: sepsis due to unspecified organism Sepsis acute organ dysfunction status: unspecified Qualified Code(s): A41.9 - Sepsis, unspecified organism Plan to address problem: SEPSIS SECONDARY TO INFECTED LOWER EXTREMITY ULCERS. CONTINUED BROAD-SPECTRUM ANTIBIOTICS (4) Bilateral leg ulcer Current Visit: No Status: Acute Plan to address problem: BILATERAL LOWER EXTREMITY WOUNDS WITH POLYMICROBIAL GROWTH CONTINUE ANTIBIOTICS Subjective Principal diagnosis: wound infection Interval history: 44-year-old lady wiTH diabetes mellitus type2, hypertension, ESRD ON HEMODIALYSIS, WITH HISTORY OF BACTEREMIA, BILATERAL LOWER EXTREMITIES INFECTION She was seen today it's denies any orthopnea or PND We'll repeat dialysis today given concern for calciphylaxis Need for compliance discussed with the patient and her mother Objective - Vital Signs Vital signs: Vital Signs - 12hr 09/07/19 09/07/19 00:33 04:58 Temperature 98.0 F Pulse Rate 77 113 H Respiratory 20 Rate Blood Pressure 115/58 110/68 O2 Sat by Pulse 99 Oximetry - General Appearance General appearance: well-developed, well-nourished EENT: ATNC, PERRL Neck: no JVD Respiratory: Present: Clear to Ascultation Cardiology: regular, S1S2 Gastrointestinal: normal, normoactive bowel sounds Integumentary: no rash Neurologic: alert and oriented x3, CN 3-12 intact Psychiatric: mood/affect appropriate - Lab 09/05/19 07:09 09/05/19 07:09 Most recent lab results Calcium 8.4 mg/dL (8.4-10.2) 09/05/19 07:09 - Imaging Chest x-ray: image reviewed (CXR REVIEWED WITHOUT EDEMA) Medications & Allergies - Medications Allergies/Adverse Reactions: Allergies No Known Allergies Allergy (Verified 03/12/19 12:23) Home Medications: Home Medications Medication Instructions Recorded Confirmed Last Taken Type Ergocalciferol(Vitamin D2)(Nf) 800 unit PO DAILY 07/06/19 08/29/19 1 Day Ago History [Vitamin D (Nf)] ~08/12/19 cloNIDine [Catapres] 0.2 mg PO BID 07/06/19 08/29/19 08/28/19 22:00 History Pantoprazole [Protonix TAB] 40 mg PO QDAY #30 tablet 07/14/19 08/29/19 08/13/19 Rx Insulin NPH/Regular [NovoLIN 70/30] 5 unit SUB-Q BIDDIAB units 08/13/19 08/29/19 Unknown Rx Insulin NPH/Regular [NovoLIN 70/30] 5 unit SUB-Q BIDDIAB #10 ml 08/13/19 08/29/19 Unknown Rx Lactulose [Cephulac] 20 gm PO BID oral.liqd 08/13/19 08/29/19 Unknown Rx ALBUTEROL NEB's [Proventil 0.083% 2.5 mg IH Q3HRT PRN #30 nebu 09/02/19 Unknown Rx NEBS] oxyCODONE ER [oxyCONTIN ER] 10 mg PO Q12HR PRN #10 tablet 09/02/19 Unknown Rx Active Medications: Generic Name Dose Route Start Last Admin Trade Name Freq PRN Reason Stop Dose Admin Acetaminophen 650 mg 08/26/19 01:21 Tylenol PO Q4H PRN Pain MILD(1-3)/Fever >100.5/[place] Albuterol 2.5 mg 08/26/19 02:59 Proventil IH Q3HRT PRN Shortness Of Breath Clonidine HCl 0.2 mg 08/27/19 22:00 09/07/19 00:33 Catapres PO Not Given BID WALT Dextrose 0 ml 08/26/19 02:59 08/29/19 09:31 D50w (25gm) Syringe IV 10 ml Q30MIN PRN Administration Hypoglycemia Diphenhydramine HCl 25 mg 08/29/19 11:35 09/03/19 22:35 Benadryl PO 25 mg Q6H PRN Administration Itching Epoetin Arias 10,000 unit 08/27/19 09:35 09/06/19 13:33 Procrit IV 10,000 unit AMBER PRN Administration hemodialysis Heparin Sodium (Porcine) 5,000 unit 08/26/19 10:00 09/06/19 22:16 Heparin SUB-Q 5,000 unit Q12HR WALT Administration Heparin Sodium (Porcine) 5,000 unit 08/27/19 09:35 09/06/19 13:45 Heparin IV 5,000 unit AMBER PRN Administration hemodialysis Hydromorphone HCl 1 mg 09/04/19 01:23 09/06/19 17:06 Dilaudid IV 1 mg Q6H PRN Administration Pain , Severe (7-10) Sodium Chloride 100 mls @ 999 mls/hr 08/27/19 09:35 Nacl 0.9% IV AMBER PRN Hypotension Cefepime HCl 2 gm in 100 mls @ 200 mls/hr 09/02/19 18:00 09/06/19 20:53 Cefepime/Ns 2 Gm/100 Ml IV 09/23/19 18:29 200 mls/hr QPM WALT Administration Protocol Insulin Human Isoph/Insulin Regular 5 unit 08/28/19 08:00 09/07/19 08:45 Humulin 70/30 SUB-Q 5 unit BIDDIAB WALT Administration Insulin Human Lispro 0 unit 08/26/19 07:30 09/07/19 08:38 Humalog SUB-Q 2 unit ACHS WALT Administration Protocol Lactulose 20 gm 08/27/19 22:00 09/07/19 00:13 Cephulac PO 20 gm BID WALT Administration Ondansetron HCl 4 mg 08/26/19 01:21 Zofran IV Q8H PRN Nausea And Vomiting Oxycodone HCl 5 mg 08/29/19 10:00 09/06/19 22:14 Oxycontin PO 5 mg Q12HR WALT Administration Pantoprazole Sodium 40 mg 08/27/19 10:00 09/06/19 14:55 Protonix PO 40 mg DAILY WALT Administration Sodium Chloride 10 ml 08/26/19 10:00 09/07/19 00:32 Sodium Chloride Flush Syringe 10 Ml IV 10 ml BID WALT Administration Sodium Chloride 10 ml 08/26/19 01:21 Sodium Chloride Flush Syringe 10 Ml IV PRN PRN LINE FLUSH
[2019-09-07] MEDS: HEPARIN 5,000 UNIT/1 ML VIAL SUB-Q SCH (10:25)
[2019-09-07] MEDS ORDERED: SEVELAMER CARBONATE 800 MG TAB PO SCH (11:30)
--- NOTE | 2019-09-07 11:46 | Discharge Summary ---
Providers - Providers Date of Admission: 08/26/19 01:21 Date of discharge: 09/07/19 Attending physician: ISABELLA FONTANEZ 08/26/19 02:59 Consult to Physician [CONS] Routine Comment: Consulting Provider: LIVIER ALVARADO Physician Instructions: Reason For Exam: Sepsis ?? source BLE wounds 08/26/19 03:08 Consult to Physician [CONS] Routine Comment: Consulting Provider: JUANCHO RANDHAWA Physician Instructions: Reason For Exam: ESRD on HD M/W/F missed HD on 08/2308/26/19 03:09 Consult to Wound/ET Nurse [CONS] Routine Reason For Exam: wound eval 08/26/19 03:10 Consult to Physician [CONS] Routine Comment: Consulting Provider: ALBERTINA MICHELLE Physician Instructions: Reason For Exam: est pt , ble ulcers s/p debridement 06/201908/26/19 16:13 Consult to Wound/ET Nurse [CONS] Routine Reason For Exam: wound eval 08/27/19 20:34 Consult to Dietitian/Nutrition [CONS] Routine Physician Instructions: Reason For Exam: Reason for Consult: Malnutrition 08/31/19 11:07 Consult to Case Management [CONS] Routine Services Needed at Discharge: Other Notified:: CM NOTIFIED Comment:: IV Abx at dialysis center Additional Physician Instructions: IV Ceftazidime 2 gm post HD + IV Vancomycin 1 gm post HD at dialysis center ending 09/02/2019. No labs needed given short duration of abx. 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 Additional Physician Instructions: [facility] Please infuse ceftazidime 2 gm IV after HD on Friday, 2 gm IV after HD on Friday and 3 gm IV after HD on Friday for 3 weeks till 09/23/2019 Diagnosis: left foot abscess complicated wound with tendon exposure/E coli labs: CBC, AST, ALT, CRP, creatinine q friday - fax results to [phone] Dr [place] Primary care physician: RN ORTHOPAEDICS Hospitalization Reason for admission: Severe sepsis sec to wound infection/abscess Condition: Stable Hospital course: Final discharge diagnosis: Severe sepsis sec to wound infection/abscess Buttock wound infection Cultures grew pseudomonas, Pseudomonas and enterococcus Continue 2 g Ceftazidime after dialysis for 3 weeks to be completed on 09/23/2019 Bilateral LE wound infection/abscess s/p I&D x 2 at the bedside by Dr. Michelle. Treated with ceftazidime/vanco iv on HD x 7 days till 09/02. Completed abx for that during this admission. Wound cultures from both legs grew Pseudomonas, proteus, Escherichia coli and enterobacter Calciphylaxis/ Pyoderma Continue skin care ESRD Continue HD Amemia of chronic Disease Morbid obesity with BMI49.1 Advised weight reduction exercise when medically stable Severe Malnutrition Hospital course: Patient was admitted and placed on IV antibiotics after blood cultures were obtained. She later underwent I&D 2 of both LE and cultures were obtained as above. ID physician recommended 3 weeks of IV 2 g Ceftazidime to be completed on 09/23/2019. Patient was discharged to home with home health. Disposition: DC/- HOME [facility] Time spent for discharge: 40 minutes Core Measure Documentation - Palliative Care Palliative Care/ Comfort Measures: Not Applicable - Core Measures Any of the following diagnoses?: none Exam - Constitutional Vitals: Temp Pulse Resp BP Pulse Ox 98.0 F 86 20 124/79 99 09/07/19 04:58 09/07/19 10:21 09/07/19 10:23 09/07/19 10:21 09/07/19 04:58 General appearance: Present: no acute distress - EENT Eyes: Present: PERRL ENT: hearing intact, clear oral mucosa - Neck Neck: Present: supple - Respiratory Respiratory effort: normal Respiratory: bilateral: CTA - Cardiovascular Rhythm: regular Heart Sounds: Present: S1 & S2 - Extremities Extremities: No edema - Abdominal General gastrointestinal: Present: soft, non-tender, normal bowel sounds - Musculoskeletal Musculoskeletal: strength equal bilaterally - Psychiatric Psychiatric: appropriate mood/affect - Neurologic Neurologic: moves all extremities Plan Follow up with: PRIMARY CAREMD [Primary Care Provider] - 7 Days ALBERTINA MICHELLE MD [Staff Physician] - 7 Days Prescriptions: oxyCODONE ER [oxyCONTIN ER] 10 mg PO Q12HR PRN #10 tablet PRN Reason: Pain, Moderate (4-6) ALBUTEROL NEB's [Proventil 0.083% NEBS] 2.5 mg IH Q3HRT PRN #30 nebu PRN Reason: Shortness Of Breath
[2019-09-07] MEDS: HYDROmorphone 1 MG/1 ML INJ IV PRN (12:05)
--- NOTE | 2019-09-07 12:11 | Progress Note ---
Assessment and Plan Culture: 08/25/19 blood culture: NGTD 08/26 LLE wound culture: Pseudomonas, Proteus, Enterobacter 08/26 RLE wound culture: Proteus, E.coli, Enterobacter 08/26 buttock wound culture: Pseudomonas, Proteus, Enterococcus 09/02/2019 left foot dorsum: E coli pansensitive A/P: 44 yo F PMHx ESRD on HD HTN, liver disease, cellulitis, bilateral leg ulcerations admitted with sepsis, possible wound infection 1) Acute sepsis - fever resolved, leukocytosis better, most likely secondary to her wounds. 2) New left foot dorsum abscess: s/p I&D at the bedside by Dr. Michelle. Cultures are E coli. 3) Bilateral LE wound and buttock wounds - s/p debridement and wound care. Cultures polymicrobial. Treated with ceftazidime/vanco iv on HD x 7 days till 09/02. Completed abx for that during this admission. 4) ESRD on HD - renally dose antibiotics as appropriate. 5) ? pruritic dermatitis of unclear etiology: needs Derm f/u Recs: - continue IV Cefepime for now - continue ongoing wound care as outpatient - at discharge will treat with ceftazidime 2 gm IV after HD on Friday, 2 gm IV after HD on Friday and 3 gm IV after HD on Friday for 3 weeks till 09/23/2019 (complicated wound with tendon exposure) - at risk for amputation - Derm clinic f/u - ID clinic 09/30 scheduled notified Will follow. Thanks for consultation Olivia Lipscomb MD Infectious Diseases Retail Team Leader [facility] ([facility]) M [phone] O [phone] Subjective Date of service: 09/07/19 Principal diagnosis: wound infection Interval history: feels ok c/o itching no fever Objective - Exam Narrative Exam: Constitutional: awake, alert. obese Head, Ears, Nose: Normocephalic, atraumatic. External ears, nose normal Eyes: Conjunctivae/corneas clear. icterus +. No ptosis. Neck: Supple, no meningeal signs Oral: no thrush Cardiovascular: S1, S2 normal. Respiratory: Good air entry, clear to auscultation bilaterally GI: obese, abdominal wall edema, bowel sounds +, No peritoneal signs Musculoskeletal: large bilateral lower extremity wounds with dressings. HD cath +. left foot dorsum with another wound with dressing Skin: No rash or abscess Hem/Lymphatic: No palpable cervical or supraclavicular nodes. No lymphangitis Psych: mood OK, affect normal Neurological: awake, alert, oriented - Constitutional Vitals: Vital Signs Temp Pulse Resp BP Pulse Ox 98.0 F 86 20 124/79 99 09/07/19 04:58 09/07/19 10:21 09/07/19 12:05 09/07/19 10:21 09/07/19 04:58 Temperature -Last 24 Hours Temperature 98.0 F Temperature 99.3 F Temperature 99.1 F - Labs CBC & Chem 7: 09/05/19 07:09 09/05/19 07:09 Labs: Abnormal lab results 09/06/19 09/07/19 09/07/19 Range/Units 21:02 08:38 10:25 POC Glucose 122 H 169 H (70-105) Phosphorus 1.90 L (2.5-4.5) mg/dL PTH Intact (15-65) pg/mL 09/07/19 Range/Units 10:25 POC Glucose (70-105) Phosphorus (2.5-4.5) mg/dL PTH Intact 119.9 H (15-65) pg/mL
--- NOTE | 2019-09-07 15:10 | Post Operative Note ---
Pre-op diagnosis: Left foot wound Post-op diagnosis: same Procedure: Debridement of left foot wound Final wound measurements: 7.7 X 7.5 X 1.7 cm Anesthesia: none Surgeon: ALBERTINA SOSA Estimated blood loss: minimal Pathology: none Specimen disposition: discarded Condition: stable Disposition: no change
[2019-09-07] MEDS: EPOETIN ALFA 10,000 UNIT/1 ML INJ IV PRN (16:50)
[2019-09-07] MEDS ORDERED: SODIUM CHLORIDE*PRIMING MACHINE ONLY FOR DIALYSIS MC ONE (16:58)
[2019-09-07 17:18] VITALS: BP 138/64
== END 2019-09-07 21:31 | disposition home health service (06) | DRG 853 ==
LOC: ED 22:30 → IMCU 08-26 01:21 → 3A 08-26 10:54
PROVIDERS: ADMIT Internal Medicine; ATTEND Internal Medicine
PROC: 0JBP0ZZ Excision of Left Lower Leg Subcutaneous Tissue and Fascia, Open Approach (ICD-10-PCS; 2019-08-26)
PROC: 0JBN0ZZ Excision of Right Lower Leg Subcutaneous Tissue and Fascia, Open Approach (ICD-10-PCS; 2019-08-26)
PROC: 0JBR0ZZ Excision of Left Foot Subcutaneous Tissue and Fascia, Open Approach (ICD-10-PCS; principal; 2019-09-02)
DX: A41.9 Sepsis, unspecified organism (principal); N18.6 End stage renal disease; J96.01 Acute respiratory failure with hypoxia; E43 Unspecified severe protein-calorie malnutrition; L97.929 Non-pressure chronic ulcer of unspecified part of left lower leg with unspecified severity; L97.919 Non-pressure chronic ulcer of unspecified part of right lower leg with unspecified severity; N25.81 Secondary hyperparathyroidism of renal origin; I13.2 Hypertensive heart and chronic kidney disease with heart failure and with stage 5 chronic kidney disease, or end stage renal disease; Z68.42 Body mass index [BMI] 45.0-49.9, adult; L02.612 Cutaneous abscess of left foot; E11.22 Type 2 diabetes mellitus with diabetic chronic kidney disease; E66.01 Morbid (severe) obesity due to excess calories; B96.5 Pseudomonas (aeruginosa) (mallei) (pseudomallei) as the cause of diseases classified elsewhere; B96.4 Proteus (mirabilis) (morganii) as the cause of diseases classified elsewhere; B96.20 Unspecified Escherichia coli [E. coli] as the cause of diseases classified elsewhere; D63.1 Anemia in chronic kidney disease; I50.9 Heart failure, unspecified; E66.9 Obesity, unspecified; E86.0 Dehydration; E83.59 Other disorders of calcium metabolism; E11.51 Type 2 diabetes mellitus with diabetic peripheral angiopathy without gangrene; Z99.2 Dependence on renal dialysis; Z79.4 Long term (current) use of insulin; Z91.19 Patient's noncompliance with other medical treatment and regimen
CPT/HCPCS: 36415; 71045; 80048; 80053; 80202; 82140; 82962; 83036; 83970; 84100; 85007; 85025; 85027; 85730; 87040; 87076; 87116; 87186; 87400; 96365; 96372; 96375; G0378; C9113; J0692; J0885; J1170; J1200; J1644; J1720; J1815; J3370; J7030; J7040

== ENCOUNTER 2019-09-11 10:07 | Inpatient (IN) | payer MEDICARE ==
[2019-09-11] MEDS ORDERED: SODIUM CHLORIDE 0.9% 1000 ML IV SOLN IV ONE (10:37)
[2019-09-11] MEDS ORDERED: VANCOMYCIN/NS 1 GM/250 ML 1 GM/250 ML BAG IV ONE (10:41)
[2019-09-11] MEDS ORDERED: NALOXONE 0.4 MG/1 ML INJ IV ONE (10:42)
--- NOTE | 2019-09-11 10:53 | Emergency Department Report ---
ED General Adult HPI - General Chief complaint: Altered Mental Status Stated complaint: POSS SEPSIS Time Seen by Provider: 09/11/19 10:29 Source: family, EMS Mode of arrival: Stretcher Limitations: Altered Mental Status - History of Present Illness Initial comments: Patient is 44 years old female, morbidly obese, end-stage renal disease on hemodialysis, hypertension, diabetes, congestive heart failure, chronic lower extremity wound, currently on IV antibiotic cefepime by infectious disease medical device sales consultant. Patient brought to the emergency room via EMS for evaluation of altered mental status started this morning. Mother is in the room and getting most of the history. Patient is drowsy but responding to voice stimuli with oxygen saturation of 98%. Mother stated that she if Percocet this morning because she was complaining of pain from the wound site. Patient found to be febrile with a temperature of 101 and a blood pressure of 80/42. Sepsis p rotocol initiated. - Related Data Home Medications Medication Instructions Recorded Confirmed Last Taken Ergocalciferol(Vitamin D2)(Nf) 800 unit PO DAILY 07/06/19 09/12/19 1 Day Ago [Vitamin D (Nf)] ~08/12/19 cloNIDine [Catapres] 0.2 mg PO BID 07/06/19 09/12/19 08/28/19 22:00 Previous Rx's Medication Instructions Recorded Last Taken Type Pantoprazole [Protonix TAB] 40 mg PO QDAY #30 tablet 07/14/19 08/13/19 Rx Insulin NPH/Regular [NovoLIN 70/30] 5 unit SUB-Q BIDDIAB units 08/13/19 Unknown Rx Insulin NPH/Regular [NovoLIN 70/30] 5 unit SUB-Q BIDDIAB #10 ml 08/13/19 Unknown Rx Lactulose [Cephulac] 20 gm PO BID oral.liqd 08/13/19 Unknown Rx ALBUTEROL NEB's [Proventil 0.083% 2.5 mg IH Q3HRT PRN #30 nebu 09/02/19 Unknown Rx NEBS] oxyCODONE ER [oxyCONTIN ER] 10 mg PO Q12HR PRN #10 tablet 09/02/19 Unknown Rx Allergies Allergy/AdvReac Type Severity Reaction Status Date / Time No Known Allergies Allergy Verified 03/12/19 12:23 ED Review of Systems ROS: Stated complaint: POSS SEPSIS Other details as noted in HPI Comment: Unobtainable due to pts medical conditions ED Past Medical Hx - Past Medical History Previous Medical History?: Yes Hx Hypertension: Yes Hx Heart Attack/AMI: No Hx Congestive Heart Failure: Yes Hx Diabetes: Yes Hx Deep Vein Thrombosis: No Hx Pulmonary Embolism: No Hx Liver Disease: Yes Hx Renal Disease: Yes (dialysis) Hx Asthma: No Hx COPD: Yes Hx Tuberculosis: No Hx HIV: No Additional medical history: PVD, and cellulitis - Surgical History Past Surgical History?: Yes Hx Coronary Stent: No Hx Pacemaker: No Hx Internal Defibrillator: No Additional Surgical History: Perm cath, - Social History Smoking Status: Never Smoker Substance Use Type: None - Medications Home Medications: Home Medications Medication Instructions Recorded Confirmed Last Taken Type Ergocalciferol(Vitamin D2)(Nf) 800 unit PO DAILY 07/06/19 09/12/19 1 Day Ago History [Vitamin D (Nf)] ~08/12/19 cloNIDine [Catapres] 0.2 mg PO BID 07/06/19 09/12/19 08/28/19 22:00 History Pantoprazole [Protonix TAB] 40 mg PO QDAY #30 tablet 07/14/19 09/12/19 08/13/19 Rx Insulin NPH/Regular [NovoLIN 70/30] 5 unit SUB-Q BIDDIAB units 08/13/19 09/12/19 Unknown Rx Insulin NPH/Regular [NovoLIN 70/30] 5 unit SUB-Q BIDDIAB #10 ml 08/13/1908/21 Unknown Rx Lactulose [Cephulac] 20 gm PO BID oral.liqd 08/13/19 09/12/19 Unknown Rx ALBUTEROL NEB's [Proventil 0.083% 2.5 mg IH Q3HRT PRN #30 nebu 09/02/19 09/12/19 Unknown Rx NEBS] oxyCODONE ER [oxyCONTIN ER] 10 mg PO Q12HR PRN #10 tablet 09/02/19 09/12/19 Unknown Rx ED Physical Exam - General Limitations: Altered Mental Status General appearance: in no apparent distress, obtunded - Head Head exam: Present: atraumatic, normocephalic, normal inspection - Eye Eye exam: Present: normal appearance - ENT ENT exam: Present: normal exam, mucous membranes moist - Neck Neck exam: Present: normal inspection, full ROM. Absent: tenderness, meningismus, lymphadenopathy, thyromegaly - Respiratory Respiratory exam: Present: normal lung sounds bilaterally. Absent: respiratory distress, wheezes, rales, rhonchi - Cardiovascular Cardiovascular Exam: Present: regular rate, normal rhythm, normal heart sounds - GI/Abdominal GI/Abdominal exam: Present: soft, normal bowel sounds. Absent: distended, tenderness, guarding, rebound, rigid, organomegaly, mass, bruit, pulsatile mass, hernia - Extremities Exam Extremities exam: Present: other (multiple lower extremities wound with greenish discharge and cellulitis.) - Neurological Exam Neurological exam: Present: altered ED Course Vital Signs 09/11/19 09/11/19 09/11/19 11:00 12:00 12:41 Temperature 98.2 F Pulse Rate 128 H 143 H Respiratory 24 19 19 Rate Blood Pressure 95/54 138/79 [Left] O2 Sat by Pulse 100 100 100 Oximetry 09/11/19 09/11/19 09/11/19 14:00 17:00 19:10 Temperature 98.9 F Pulse Rate 107 H 100 H 111 H Respiratory 26 H 16 16 Rate Blood Pressure 120/74 126/69 135/87 [Left] O2 Sat by Pulse 96 100 99 Oximetry ED Medical Decision Making - Lab Data Result diagrams: 09/12/19 07:24 09/12/19 07:24 - Radiology Data Radiology results: report reviewed - Medical Decision Making Patient is 44 years old female, morbidly obese, end-stage renal disease on hemodialysis, hypertension, diabetes, congestive heart failure, chronic lower extremity wound, currently on IV antibiotic cefepime by infectious disease medical device sales consultant. Patient brought to the emergency room via EMS for evaluation of altered mental status started this morning. Mother is in the room and getting most of the history. Patient is drowsy but responding to voice stimuli with oxygen saturation of 98%. Mother stated that she if Percocet this morning because she was complaining of pain from the wound site. Patient found to be febrile with a temperature of 101 and a blood pressure of 80/42. Sepsis protocol initiated. Patient received normal saline, blood pressure improved to 136/72. Patient received cefepime and vancomycin. Chest x-ray is unremarkable for infection. I believe patient sepsis source is most likely lower extremity open wound. Patient finished dialysis yesterday. Patient became more alert after 0.4 mg of Narcan. I discussed the patient with Dr. Arizmendi, he agreed to admit the patient to medical service for further management. Critical Care Time: Yes Critical care time in (mins) excluding proc time.: 30 Critical care attestation.: If time is entered above; I have spent that time in minutes in the direct care of this critically ill patient, excluding procedure time. ED Disposition Clinical Impression: ESRD (end stage renal disease), Morbid (severe) obesity due to excess calories, Sepsis, Infected open wound Disposition: OP ADMIT IP TO THIS HOSP Is pt being admited?: Yes Condition: Stable
[2019-09-11 11:06] LABS: Hematocrit 28.8 % (30.3-42.9); Hemoglobin 8.9 gm/dl (10.1-14.3); Mean Corpuscular HGB Conc 31 % (30-34); Mean Corpuscular Volume 92 fl (79-97); Red Blood Count 3.13 M/mm3 (3.65-5.03)
[2019-09-11 11:16] LABS: INR 1.76 (0.87-1.13); Partial Thromboplastin Time 29.4 Sec. (24.2-36.6); Platelet Count 70 K/mm3 (140-440); Red Cell Distribution Width 25.4 % (13.2-15.2)
[2019-09-11 11:21] LABS: Albumin 2.1 g/dL (3.9-5); Bilirubin,Direct 0.7 mg/dL (0-0.2)
[2019-09-11 11:37] LABS: Albumin 1.9 g/dL (3.9-5)
--- NOTE | 2019-09-11 11:43 | XRay Report ---
CHEST 1 VIEW 09/11/2019 11:09 AM INDICATION / CLINICAL INFORMATION: sepsis. COMPARISON: One view of the chest from 08/25/2019. FINDINGS: SUPPORT DEVICES: Stable left internal jugular vein PermCath. HEART / MEDIASTINUM: Moderate cardiomegaly has worsened. LUNGS / PLEURA: Mild bilateral interstitial opacities may represent edema. No significant pleural eff usion. No pneumothorax. ADDITIONAL FINDINGS: No significant additional findings. IMPRESSION: Interval worsening of cardiomegaly with probable mild pulmonary edema. Signer Name: Ismael Omer MD Signed: 09/11/2019 11:39 AM Workstation Name: [id number]
[2019-09-11 12:17] LABS: Total Cells Counted 100
[2019-09-11 12:18] LABS: Anisocytosis 2+; Basophils % (Manual) 0 % (0.0-1.8); Hypochromasia 1+; Platelet Estimate Consistent w Auto; Target Cells 1+
[2019-09-11] MEDS ORDERED: VANCOMYCIN 2,000 MG in SODIUM CHLORIDE 0.9% 500 ML 500 ML IV ONE (12:30)
[2019-09-11] MEDS ORDERED: CEFEPIME/NS 2 GM/100 ML 2 GM/100 ML BAG IV SCH ×2 (13:00→14:00)
--- NOTE | 2019-09-11 14:40 | Cat Scan Report ---
CT HEAD WITHOUT CONTRAST INDICATION / CLINICAL INFORMATION: Altered Mental Status. TECHNIQUE: All CT scans at this location are performed using CT dose reduction for ALARA by means of automated e xposure control. COMPARISON: Head CT 08/13/2019 and 07/26/2019 FINDINGS: LIMITATIONS: Patient motion artifact grades image quality on this examination. HEMORRHAGE: No evidence of intracranial hemorrhage or extra-axial fluid collection. EXTRA-AXIAL SPACES: Cortical sulci, sylvian fissures and basilar cisterns have an unremarkable appear ance. VENTRICULAR SYSTEM: The ventricular system is of normal size and configuration. CEREBRAL PARENCHYMA: No areas of abnormal brain parenchymal attenuation are identified. There is no i ndication of recent infarction. MIDLINE SHIFT OR HERNIATION: There is no mass effect. CEREBELLUM / BRAINSTEM: Brainstem and cerebellum have an unremarkable appearance. INTRACRANIAL VESSELS:No abnormalities are identified on this noncontrast head CT. ORBITS: visualized portions of the orbits have an unremarkable appearance. SOFT TISSUES of HEAD: No significant abnormality. CALVARIUM: Evaluation of bone windows reveals no abnormalities. PARANASAL SINUSES / MASTOID AIR CELLS: Paranasal sinuses are free from inflammatory mucosal disease. Mastoid air cells are normally pneumatized. IMPRESSION: 1. No acute intracranial abnormality. No significant interval change. Signer Name: Lee Méndez MD Signed: 09/11/2019 2:36 PM Workstation Name: [id number]
--- NOTE | 2019-09-11 15:09 | Progress Note ---
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 * Lactic acidosis * Anemia secondary to ESRD * Medical noncompliance * Hx of enterococcal bacteremia Plan: * Continue HD MWF schedule, * UF as tolerated, * Monitor lytes and volume status closely * Abx per ID, reconsult ; will plan to continue IV antibiotics * Surgery and ID were following, appreciate recommendations * Epogen TIW, no IV iron given infection * Renal diet * Dose medications for renal function Subjective Date of service: 09/11/19 Principal diagnosis: esrd, sepsis Interval history: readmitted due to sepsis Objective - Exam Narrative Exam: Assessment and Plan General appearance: well-developed, well-nourished, appears stated age EENT: PERRL, mucous membranes moist Neck: no JVD, no thyromegaly, no carotid bruit, supple, other (IJ PermCath in place) Respiratory: Present: Clear to Ascultation Cardiology: regular, normal heart rate, S1S2, no murmurs Gastrointestinal: normal, normoactive bowel sounds Integumentary: other (bilateral pitting edema. Both legs wrapped with bandage) - Vital Signs Vital signs: Vital Signs - 12hr 09/11/19 09/11/19 09/11/19 11:00 12:00 12:41 Temperature 98.2 F Pulse Rate 128 H 143 H Respiratory 24 19 19 Rate Blood Pressure 95/54 138/79 [Left] O2 Sat by Pulse 100 100 100 Oximetry 09/11/19 14:00 Temperature Pulse Rate 107 H Respiratory 26 H Rate Blood Pressure 120/74 [Left] O2 Sat by Pulse 96 Oximetry - Lab 09/11/19 10:47 09/11/19 10:47 Most recent lab results Calcium 8.0 mg/dL (8.4-10.2) L 09/11/19 10:47 Medications & Allergies - Medications Allergies/Adverse Reactions: Allergies No Known Allergies Allergy (Verified 03/12/19 12:23) Home Medications: Home Medications Medication Instructions Recorded Confirmed Last Taken Type Ergocalciferol(Vitamin D2)(Nf) 800 unit PO DAILY 07/06/19 08/29/19 1 Day Ago History [Vitamin D (Nf)] ~08/12/19 cloNIDine [Catapres] 0.2 mg PO BID 07/06/19 08/29/19 08/28/19 22:00 History Pantoprazole [Protonix TAB] 40 mg PO QDAY #30 tablet 07/14/19 08/29/19 08/13/19 Rx Insulin NPH/Regular [NovoLIN 70/30] 5 unit SUB-Q BIDDIAB units 08/13/19 08/29/19 Unknown Rx Insulin NPH/Regular [NovoLIN 70/30] 5 unit SUB-Q BIDDIAB #10 ml 08/13/19 08/29/19 Unknown Rx Lactulose [Cephulac] 20 gm PO BID oral.liqd 08/13/19 08/29/19 Unknown Rx ALBUTEROL NEB's [Proventil 0.083% 2.5 mg IH Q3HRT PRN #30 nebu 09/02/19 Unknown Rx NEBS] oxyCODONE ER [oxyCONTIN ER] 10 mg PO Q12HR PRN #10 tablet 09/02/19 Unknown Rx Active Medications: Generic Name Dose Route Start Last Admin Trade Name Freq PRN Reason Stop Dose Admin Cefepime HCl 2 gm in 100 mls @ 200 mls/hr 09/11/19 13:00 Cefepime/Ns 2 Gm/100 Ml IV Q12H WALT Protocol
[2019-09-11] MEDS ORDERED: CEFEPIME/NS 2 GM/100 ML 2 GM/100 ML BAG IV ONE (18:06)
[2019-09-11] MEDS ORDERED: SODIUM CHLORIDE 0.9% 1000 ML 1,000 ML ONE (18:07)
[2019-09-11] MEDS: SODIUM CHLORIDE 0.9% 1000 ML 1,000 ML IV SCH (18:31)
[2019-09-11] MEDS ORDERED: oxyCODONE ER 10 MG TAB PO PRN (22:31)
[2019-09-11] MEDS ORDERED: ALBUTEROL 2.5 MG/3 ML NEBU IH PRN (22:31)
--- NOTE | 2019-09-11 22:31 | History and Physical Report ---
History of Present Illness Date of examination: 09/11/19 Date of admission: 09/11/19 13:24 Chief complaint: Altered sensorium and low BP History of present illness: 44 years old female, morbidly obese, end-stage renal disease on hemodialysis, hypertension, diabetes, congestive heart failure, chronic lower extremity wound, currently on IV antibiotic cefepime by infectious disease consultants brought to the emergency room via EMS for evaluation of altered mental status started this morning. Mother is in the room and giving most of the history. Patient is drowsy but responding to voice stimuli with oxygen saturation of 98%. Mother stated that she gave Percocet this morning because she was complaining of pain from the wound site. Patient found to be febrile with a temperature of 101 and a blood pressure of 80/42. Sepsis protocol initiated. Patient had multiple admissions in the last few months. Past Medical History Previous Medical History?: Yes Hypertension: Yes Congestive Heart Failure: Yes Hx Diabetes: Yes Liver Disease: Yes Renal Disease: Yes (dialysis) Additional medical history: PVD, and cellulitis Surgical History Past Surgical History?: Yes Additional Surgical History: Perm cath, Social History Smoking Status: Never Smoker Substance Use Type: None Medications Home Medications: Home Medications Medication Instructions Recorded Confirmed Last Taken Type Ergocalciferol(Vitamin D2)(Nf) 800 unit PO DAILY 07/06/19 08/29/19 1 Day Ago History [Vitamin D (Nf)] ~08/12/19 cloNIDine [Catapres] 0.2 mg PO BID 07/06/19 08/29/19 08/28/19 22:00 History Pantoprazole [Protonix TAB] 40 mg PO QDAY #30 tablet 07/14/19 08/29/19 08/13/19 Rx Insulin NPH/Regular [NovoLIN 70/30] 5 unit SUB-Q BIDDIAB units 08/13/19 08/29/19 Unknown Rx Insulin NPH/Regular [NovoLIN 70/30] 5 unit SUB-Q BIDDIAB #10 ml 08/13/19 08/29/19 Unknown Rx Lactulose [Cephulac] 20 gm PO BID oral.liqd 08/13/19 08/29/19 Unknown Rx ALBUTEROL NEB's [Proventil 0.083% 2.5 mg IH Q3HRT PRN #30 nebu 09/02/19 Unknown Rx NEBS] oxyCODONE ER [oxyCONTIN ER] 10 mg PO Q12HR PRN #10 tablet 09/02/19 Unknown Rx Review of Systems ROS: Stated complaint: POSS SEPSIS Other details as noted in HPI Comment: Unobtainable due to pts medical conditions Medications and Allergies Allergies Allergy/AdvReac Type Severity Reaction Status Date / Time No Known Allergies Allergy Verified 03/12/19 12:23 Home Medications Medication Instructions Recorded Confirmed Last Taken Type Ergocalciferol(Vitamin D2)(Nf) 800 unit PO DAILY 07/06/19 09/12/19 1 Day Ago History [Vitamin D (Nf)] ~08/12/19 cloNIDine [Catapres] 0.2 mg PO BID 07/06/19 09/12/19 08/28/19 22:00 History Pantoprazole [Protonix TAB] 40 mg PO QDAY #30 tablet 07/14/19 09/12/19 08/13/19 Rx Insulin NPH/Regular [NovoLIN 70/30] 5 unit SUB-Q BIDDIAB units 08/13/1908/21 Unknown Rx Insulin NPH/Regular [NovoLIN 70/30] 5 unit SUB-Q BIDDIAB #10 ml 08/13/19 09/12/19 Unknown Rx Lactulose [Cephulac] 20 gm PO BID oral.liqd 08/13/19 09/12/19 Unknown Rx ALBUTEROL NEB's [Proventil 0.083% 2.5 mg IH Q3HRT PRN #30 nebu 09/02/19 09/12/19 Unknown Rx NEBS] oxyCODONE ER [oxyCONTIN ER] 10 mg PO Q12HR PRN #10 tablet 09/02/19 09/12/19 Unknown Rx Active Meds: Active Medications Cefepime HCl (Cefepime/Ns 2 Gm/100 Ml) 2 gm in 100 mls @ 200 mls/hr IV Q12H WALT; Protocol Last Admin: 09/11/19 18:32 Dose: 200 mls/hr Documented by: Sodium Chloride (Nacl 0.9% 1000 Ml) 1,000 mls @ 100 mls/hr IV DIRECT WALT Last Admin: 09/11/19 18:31 Dose: 100 mls/hr Documented by: Exam - Constitutional Vitals: Temp Pulse Resp BP Pulse Ox 98.9 F 98 H 20 124/51 100 09/11/19 20:40 09/11/19 20:34 09/11/19 20:34 09/11/19 20:34 09/11/19 20:34 General appearance: Present: no acute distress, well-nourished - EENT Eyes: Present: PERRL ENT: hearing intact, clear oral mucosa - Neck Neck: Present: supple, normal ROM - Respiratory Respiratory effort: normal Respiratory: bilateral: CTA - Cardiovascular Heart rate: 98 Rhythm: regular Heart Sounds: Present: S1 & S2. Absent: rub, click - Extremities Extremities: pulses symmetrical, No edema, abnormal Extremity abnormal: ulceration (Severe Ulcers on both lower extremities 10 cm x 8 cm with depth of 5 mm) Peripheral Pulses: within normal limits - Abdominal General gastrointestinal: Present: soft, non-tender, non-distended, normal bowel sounds Female genitourinary: Present: normal - Integumentary Integumentary: Present: clear, warm, dry - Musculoskeletal Musculoskeletal: gait normal, strength equal bilaterally - Psychiatric Psychiatric: appropriate mood/affect, intact judgment & insight - Neurologic Neurologic: CNII-XII intact, moves all extremities Results - Labs CBC & Chem 7: 09/12/19 07:24 09/12/19 07:24 Labs: Laboratory Last Values WBC 11.2 K/mm3 (4.5-11.0) H 09/11/19 10:47 RBC 3.13 M/mm3 (3.65-5.03) L 09/11/19 10:47 Hgb 8.9 gm/dl (10.1-14.3) L 09/11/19 10:47 Hct 28.8 % (30.3-42.9) L 09/11/19 10:47 MCV 92 fl (79-97) 09/11/19 10:47 MCH 29 pg (28-32) 09/11/19 10:47 MCHC 31 % (30-34) 09/11/19 10:47 RDW 25.4 % (13.2-15.2) H 09/11/19 10:47 Plt Count 70 K/mm3 (140-440) L 09/11/19 10:47 Add Manual Diff Complete 09/11/19 10:47 Total Counted 100 09/11/19 10:47 Seg Neuts % (Manual) 82.0 % (40.0-70.0) H 09/11/19 10:47 Band Neutrophils % 0 % 09/11/19 10:47 Lymphocytes % (Manual) 11.0 % (13.4-35.0) L 09/11/19 10:47 Reactive Lymphs % (Man) 0 % 09/11/19 10:47 Monocytes % (Manual) 4.0 % (0.0-7.3) 09/11/19 10:47 Eosinophils % (Manual) 3.0 % (0.0-4.3) 09/11/19 10:47 Basophils % (Manual) 0 % (0.0-1.8) 09/11/19 10:47 Metamyelocytes % 0 % 09/11/19 10:47 Myelocytes % 0 % 09/11/19 10:47 Promyelocytes % 0 % 09/11/19 10:47 Blast Cells % 0 % 09/11/19 10:47 Nucleated RBC % 4.0 % (0.0-0.9) H 09/11/19 10:47 Seg Neutrophils # Man 9.2 K/mm3 (1.8-7.7) H 09/11/19 10:47 Band Neutrophils # 0.0 K/mm3 09/11/19 10:47 Lymphocytes # (Manual) 1.2 K/mm3 (1.2-5.4) 09/11/19 10:47 Abs React Lymphs (Man) 0.0 K/mm3 09/11/19 10:47 Monocytes # (Manual) 0.4 K/mm3 (0.0-0.8) 09/11/19 10:47 Eosinophils # (Manual) 0.3 K/mm3 (0.0-0.4) 09/11/19 10:47 Basophils # (Manual) 0.0 K/mm3 (0.0-0.1) 09/11/19 10:47 Metamyelocytes # 0.0 K/mm3 09/11/19 10:47 Myelocytes # 0.0 K/mm3 09/11/19 10:47 Promyelocytes # 0.0 K/mm3 09/11/19 10:47 Blast Cells # 0.0 K/mm3 09/11/19 10:47 WBC Morphology Not Reportable 09/11/19 10:47 Hypersegmented Neuts Not Reportable 09/11/19 10:47 Hyposegmented Neuts Not Reportable 09/11/19 10:47 Hypogranular Neuts Not Reportable 09/11/19 10:47 Smudge Cells Not Reportable 09/11/19 10:47 Toxic Granulation Not Reportable 09/11/19 10:47 Toxic Vacuolation Not Reportable 09/11/19 10:47 Dohle Bodies Not Reportable 09/11/19 10:47 Pelger-Huet Anomaly Not Reportable 09/11/19 10:47 Sara Rods Not Reportable 09/11/19 10:47 Platelet Estimate Consistent w auto 09/11/19 10:47 Clumped Platelets Not Reportable 09/11/19 10:47 Plt Clumps, EDTA Not Reportable 09/11/19 10:47 Large Platelets Not Reportable 09/11/19 10:47 Giant Platelets Not Reportable 09/11/19 10:47 Platelet Satelliting Not Reportable 09/11/19 10:47 Plt Morphology Comment Not Reportable 09/11/19 10:47 RBC Morphology Not Reportable 09/11/19 10:47 Dimorphic RBCs Not Reportable 09/11/19 10:47 Polychromasia Few 09/11/19 10:47 Hypochromasia 1+ 09/11/19 10:47 Poikilocytosis Not Reportable 09/11/19 10:47 Anisocytosis 2+ 09/11/19 10:47 Microcytosis Not Reportable 09/11/19 10:47 Macrocytosis Not Reportable 09/11/19 10:47 Spherocytes Not Reportable 09/11/19 10:47 Pappenheimer Bodies Not Reportable 09/11/19 10:47 Sickle Cells Not Reportable 09/11/19 10:47 Target Cells 1+ 09/11/19 10:47 Tear Drop Cells Not Reportable 09/11/19 10:47 Ovalocytes Not Reportable 09/11/19 10:47 Helmet Cells Not Reportable 09/11/19 10:47 Chi-Heartwell Bodies Not Reportable 09/11/19 10:47 Rowlett Rings Not Reportable 09/11/19 10:47 Argyle Cells Not Reportable 09/11/19 10:47 Bite Cells Not Reportable 09/11/19 10:47 Crenated Cell Not Reportable 09/11/19 10:47 Elliptocytes Not Reportable 09/11/19 10:47 Acanthocytes (Spur) Not Reportable 09/11/19 10:47 Rouleaux Not Reportable 09/11/19 10:47 Hemoglobin C Crystals Not Reportable 09/11/19 10:47 Schistocytes Not Reportable 09/11/19 10:47 Malaria parasites Not Reportable 09/11/19 10:47 Adarsh Bodies Not Reportable 09/11/19 10:47 Hem Pathologist Commnt No 09/11/19 10:47 PT 20.2 Sec. (12.2-14.9) H 09/11/19 10:47 INR 1.76 (0.87-1.13) H 09/11/19 10:47 APTT 29.4 Sec. (24.2-36.6) 09/11/19 10:47 Sodium 134 mmol/L (137-145) L 09/11/19 10:47 Potassium 3.6 mmol/L (3.6-5.0) 09/11/19 10:47 Chloride 96.8 mmol/L (98-107) L 09/11/19 10:47 Carbon Dioxide 22 mmol/L (22-30) 09/11/19 10:47 Anion Gap 19 mmol/L 09/11/19 10:47 BUN 12 mg/dL (7-17) 09/11/19 10:47 Creatinine 3.0 mg/dL (0.7-1.2) H 09/11/19 10:47 Estimated GFR 21 ml/min 09/11/19 10:47 BUN/Creatinine Ratio 4 % 09/11/19 10:47 Glucose 99 mg/dL (65-100) 09/11/19 10:47 Lactic Acid 2.10 mmol/L (0.7-2.0) H* 09/11/19 19:44 Calcium 8.0 mg/dL (8.4-10.2) L 09/11/19 10:47 Total Bilirubin 1.10 mg/dL (0.1-1.2) 09/11/19 10:47 Total Bilirubin 1.10 mg/dL (0.1-1.2) 09/11/19 10:47 Direct Bilirubin 0.7 mg/dL (0-0.2) H 09/11/19 10:47 Indirect Bilirubin 0.4 mg/dL 09/11/19 10:47 AST 23 units/L (5-40) 09/11/19 10:47 AST 24 units/L (5-40) 09/11/19 10:47 ALT 11 units/L (7-56) 09/11/19 10:47 ALT 11 units/L (7-56) 09/11/19 10:47 Alkaline Phosphatase 106 units/L (35-129) 09/11/19 10:47 Alkaline Phosphatase 108 units/L (35-129) 09/11/19 10:47 Ammonia 86.0 umol/L (25-60) H 09/11/19 10:47 Troponin T 0.207 ng/mL (0.00-0.029) H* 09/11/19 15:55 Total Protein 6.2 g/dL (6.3-8.2) L 09/11/19 10:47 Total Protein 6.7 g/dL (6.3-8.2) 09/11/19 10:47 Albumin 1.9 g/dL (3.9-5) L 09/11/19 10:47 Albumin 2.1 g/dL (3.9-5) L 09/11/19 10:47 Albumin/Globulin Ratio 0.4 % 09/11/19 10:47 Albumin/Globulin Ratio 0.5 % 09/11/19 10:47 Triglycerides 112 mg/dL (2-149) 09/11/19 10:47 Cholesterol 84 mg/dL (50-199) 09/11/19 10:47 LDL Cholesterol Direct 39 mg/dL (50-130) L 09/11/19 10:47 HDL Cholesterol 21 mg/dL (40-59) L 09/11/19 10:47 Cholesterol/HDL Ratio 4.00 % 09/11/19 10:47 Salicylates < 0.3 mg/dL (2.8-20.0) L 09/11/19 10:47 Acetaminophen < 5.0 ug/mL (10.0-30.0) L 09/11/19 10:47 - Imaging and Cardiology EKG: report reviewed Assessment and Plan Advance Directives: Yes (Full code) VTE prophylaxis?: Chemical Plan of care discussed with patient/family: Yes - Patient Problems (1) Septic shock Current Visit: Yes Status: Acute Plan to address problem: Responded to IV Fluids IV pressors if necessary Cont IV Cefepime Reconsult ID Patient has ESRD Cannot give too many fluids (2) Bilateral lower leg cellulitis Current Visit: No Status: Suspected Plan to address problem: Wound care IV Abx Surgery consult (3) ESRD (end stage renal disease) Current Visit: Yes Status: Chronic Plan to address problem: Cont HD as per schedule (4) CHF (congestive heart failure) Current Visit: No Status: Chronic Qualifiers: Heart failure type: diastolic Plan to address problem: Increased Ultrafiltration (5) Calciphylaxis Current Visit: No Status: Chronic Plan to address problem: Non healing leg wounds sec to calciphlaxis She may need LESLEY BKA in future because of non healing ulcers (6) End-stage renal disease needing dialysis Current Visit: No Status: Acute (7) HTN (hypertension) Current Visit: No Status: Acute Qualifiers: Hypertension type: essential hypertension Qualified Code(s): I10 - Essential (primary) hypertension Plan to address problem: Hold antihypertensives for now (8) Morbid obesity Current Visit: No Status: Chronic Plan to address problem: Mother counselled When stable and leg wounds are healed may need Bariatric surgery. (9) IDDM (insulin dependent diabetes mellitus) Current Visit: Yes Status: Chronic Plan to address problem: Cont Insulin and coverage Adjust Insulin dosage as necessary (10) DVT prophylaxis Current Visit: No Status: Acute Plan to address problem: On Heparin
[2019-09-11] MEDS ORDERED: oxyCODONE /ACETAMINOPHEN 5-325MG TAB PO PRN (22:36)
[2019-09-11] MEDS ORDERED: HYDROmorphone 1 MG/1 ML INJ IV PRN (22:36)
[2019-09-11] MEDS ORDERED: ONDANSETRON 4 MG/2 ML INJ IV PRN (22:36)
[2019-09-11] MEDS ORDERED: ACETAMINOPHEN 325 MG TAB PO PRN (22:36)
[2019-09-11] MEDS ORDERED: CEFEPIME/NS 1 GM/100 ML 1 GM/100 ML BAG IV SCH (23:00)
[2019-09-11] MEDS ORDERED: cloNIDine 0.2 MG TAB PO SCH (23:00)
[2019-09-12] MEDS: FAMOTIDINE 20 MG/2 ML INJ IV SCH ×3 (00:11→22:54)
[2019-09-12] MEDS: LACTULOSE 20 GM/30 ML ORAL LIQD PO SCH ×4 (00:12→22:54)
[2019-09-12] MEDS: CEFEPIME/NS 1 GM/100 ML 1 GM/100 ML BAG IV SCH ×2 (06:30→17:15)
[2019-09-12 07:43] LABS: Hematocrit 29.9 % (30.3-42.9); Hemoglobin 9.2 gm/dl (10.1-14.3); Mean Corpuscular HGB Conc 31 % (30-34); Mean Corpuscular Volume 93 fl (79-97); Red Blood Count 3.21 M/mm3 (3.65-5.03)
[2019-09-12 07:48] LABS: Platelet Count 95 K/mm3 (140-440)
[2019-09-12 08:03] LABS: Albumin 2.4 g/dL (3.9-5); Calcium 8.7 mg/dL (8.4-10.2)
[2019-09-12] MEDS ORDERED: PANTOPRAZOLE 40 MG TAB PO SCH (10:00)
[2019-09-12] MEDS ORDERED: ERGOCALCIFEROL 800 UNIT PO SCH (10:00)
[2019-09-12] MEDS: CHOLECALCIFEROL (VIT D3) 400 UNIT TAB PO SCH (10:08)
[2019-09-12] MEDS: SODIUM CHLORIDE 0.9% 1000 ML 1,000 ML IV SCH (10:09)
[2019-09-12] MEDS: INSULIN NPH/REGULAR 70/30 INJ SUB-Q SCH ×2 (10:09→17:13)
[2019-09-12] MEDS: INSULIN LISPRO 100 UNIT/ML SUB-Q SCH ×4 (10:10→22:54)
--- NOTE | 2019-09-12 10:57 | Consultation ---
History of Present Illness - Reason for Consult Consult date: 09/12/19 SIRS Requesting physician: LUIS VASQUEZ - History of Present Illness 44 yo female with history of ESRD on HD, HTN, liver disease, cellulitis, morbidly obese, chronic bilateral leg ulcerations well known to our service, multiple admissions. She was recently d/c on 09/07/2019 after seen with acute sepsis from a new left foot dorsum abscess s/p I&D at the bedside by Dr. Michelle. Noted tendon exposure. Cultures are E coli. She is well known to have chronic bilateral LE wound and buttock wounds - s/p debridement and wound care. Cultures polymicrobial. Treated in the past with ceftazidime/vanco iv on HD x 7 days till 09/02/2019. She has a chronic ? pruritic dermatitis of unclear etiology and picks on her skin, needs Derm f/u. The plan was to continue ceftazidime 2 gm IV after HD on Friday, 2 gm IV after HD on Friday and 3 gm IV after HD on Friday for 3 weeks till 09/23/2019 (complicated wound with tendon exposure). She was educated she is at risk for amputation. unfortunately, patient was readmitted due to AMS/unresponsive. Per mother, she finished HD and felt very sick with pain allover, she gave her a percocet for wound pain. She then became unresponsive and mom called 911. She was found temperature of 101 and a blood pressure of 80/42. She then was given narcan and woke up. On a dmission, temp 98.2, HR 128, BP 95/54. WBC 11.2. Lactate 2.4. Review of Systems: Bold if positive, otherwise negative General: fevers, chills, body aches HEENT: visual disturbance, diplopia, eye pain Respiratory: cough, sputum, hemoptysis, shortness of breath Cardiovascular: chest pain, syncope Gastrointestinal: nausea, vomiting, diarrhea, abdominal pain Genitourinary: dysuria, hematuria, flank pain Musculoskeletal: deondre leg wounds Neurologic: headaches, seizures Hematologic: easy bruising or bleeding Endocrine: night sweats, acute weight loss Skin: chronic rash Psychiatric: suicidal, homicidal ideation Medications and Allergies Allergies Allergy/AdvReac Type Severity Reaction Status Date / Time No Known Allergies Allergy Verified 03/12/19 12:23 Home Medications Medication Instructions Recorded Confirmed Last Taken Type Ergocalciferol(Vitamin D2)(Nf) 800 unit PO DAILY 07/06/19 09/12/19 1 Day Ago History [Vitamin D (Nf)] ~08/12/19 cloNIDine [Catapres] 0.2 mg PO BID 07/06/19 09/12/19 08/28/19 22:00 History Pantoprazole [Protonix TAB] 40 mg PO QDAY #30 tablet 07/14/19 09/12/19 08/13/19 Rx Insulin NPH/Regular [NovoLIN 70/30] 5 unit SUB-Q BIDDIAB units 08/13/19 09/12/19 Unknown Rx Insulin NPH/Regular [NovoLIN 70/30] 5 unit SUB-Q BIDDIAB #10 ml 08/13/19 09/12/19 Unknown Rx Lactulose [Cephulac] 20 gm PO BID oral.liqd 08/13/19 09/12/19 Unknown Rx ALBUTEROL NEB's [Proventil 0.083% 2.5 mg IH Q3HRT PRN #30 nebu 09/02/19 09/12/19 Unknown Rx NEBS] oxyCODONE ER [oxyCONTIN ER] 10 mg PO Q12HR PRN #10 tablet 09/02/19 09/12/19 U nknown Rx Active Meds: Active Medications Acetaminophen (Tylenol) 650 mg PO Q4H PRN PRN Reason: Pain MILD(1-3)/Fever >100.5/[place] Albuterol (Proventil) 2.5 mg IH Q3HRT PRN PRN Reason: Shortness Of Breath Cholecalciferol (Vitamin D3) 800 unit PO QDAY [facility] Last Admin: 09/12/19 10:08 Dose: 800 unit Documented by: Famotidine (Pepcid) 10 mg IV BID [facility] Last Admin: 09/12/19 10:08 Dose: 10 mg Documented by: Hydromorphone HCl (Dilaudid) 1 mg IV Q3H PRN PRN Reason: Pain , Severe (7-10) Sodium Chloride (Nacl 0.9% 1000 Ml) 1,000 mls @ 100 mls/hr IV DIRECT [facility] Last Admin: 09/12/19 10:09 Dose: 100 mls/hr Documented by: Cefepime HCl (Cefepime/Ns 1 Gm/100 Ml) 1 gm in 100 mls @ 200 mls/hr IV Q12H [facility]; Protocol Last Admin: 09/12/19 06:30 Dose: 200 mls/hr Documented by: Insulin Human Isoph/Insulin Regular (Humulin 70/30) 10 unit SUB-Q BIDDIAB [facility] Last Admin: 09/12/19 10:09 Dose: 10 unit Documented by: Insulin Human Lispro (Humalog) 0 unit SUB-Q ACHS [facility]; Protocol Last Admin: 09/12/19 10:10 Dose: Not Given Documented by: Lactulose (Cephulac) 20 gm PO BID [facility] Last Admin: 09/12/19 10:12 Dose: Not Given Documented by: Ondansetron HCl (Zofran) 4 mg IV Q8H PRN PRN Reason: Nausea And Vomiting Last Admin: 09/12/19 00:11 Dose: 4 mg Documented by: Oxycodone/Acetaminophen (Percocet 5/325) 1 tab PO Q6H PRN PRN Reason: Pain, Moderate (4-6) Sodium Chloride (Sodium Chloride Flush Syringe 10 Ml) 10 ml IV BID [facility] Last Admin: 09/12/19 10:10 Dose: 10 ml Documented by: Sodium Chloride (Sodium Chloride Flush Syringe 10 Ml) 10 ml IV PRN PRN PRN Reason: LINE FLUSH Physical Examination - Physical Exam Narrative exam: Constitutional: Alert, cooperative. No acute distress. Obese Head, Ears, Nose: Normocephalic, atraumatic. External ears, nose normal Eyes: Conjunctivae/corneas clear. No icterus. No ptosis. Neck: Supple, no meningeal signs Oral: dentition fair, no thrush Cardiovascular: S1, S2 normal. Respiratory: Good air entry, clear to auscultation bilaterally GI: Soft, non-tender; obese Musculoskeletal: deondre legs with surg dressings Skin: chronic papular scaly rash Hem/Lymphatic: No palpable cervical or supraclavicular nodes. No lymphangitis Psych: Mood ok. Affect normal Neurological: Awake, alert, oriented. paraplegic - Constitutional Vitals: Vital Signs Temp Pulse Resp BP Pulse Ox 98.4 F 101 H 20 141/80 95 09/12/19 04:03 09/12/19 04:02 09/12/19 04:02 09/12/19 04:02 09/12/19 08:46 Temperature -Last 24 Hours Temperature 98.4 F Temperature 98.6 F Temperature 98.9 F Temperature 98.9 F Temperature 98.2 F Results - Labs CBC & Chem 7: 09/12/19 07:24 09/12/19 07:24 Labs: Abnormal lab results 09/11/19 09/11/19 09/11/19 Range/Units 10:47 10:47 10:47 WBC 11.2 H (4.5-11.0) K/mm3 RBC 3.13 L (3.65-5.03) M/mm3 Hgb 8.9 L (10.1-14.3) gm/dl Hct 28.8 L (30.3-42.9) % RDW 25.4 H (13.2-15.2) % Plt Count 70 L (140-440) K/mm3 Seg Neuts % (Manual) 82.0 H (40.0-70.0) % Lymphocytes % (Manual) 11.0 L (13.4-35.0) % Nucleated RBC % 4.0 H (0.0-0.9) % Seg Neutrophils # Man 9.2 H (1.8-7.7) K/mm3 PT 20.2 H (12.2-14.9) Sec. INR 1.76 H (0.87-1.13) Sodium 134 L (137-145) mmol/L Chloride 96.8 L (98-107) mmol/L Carbon Dioxide (22-30) mmol/L Creatinine 3.0 H (0.7-1.2) mg/dL Glucose (65-100) mg/dL POC Glucose (70-105) Hemoglobin A1c (4-6) % Lactic Acid (0.7-2.0) mmol/L Calcium 8.0 L (8.4-10.2) mg/dL Total Bilirubin (0.1-1.2) mg/dL Direct Bilirubin (0-0.2) mg/dL Ammonia (25-60) umol/L Troponin T (0.00-0.029) ng/mL Total Protein (6.3-8.2) g/dL Albumin 1.9 L (3.9-5) g/dL LDL Cholesterol Direct (50-130) mg/dL HDL Cholesterol (40-59) mg/dL Salicylates (2.8-20.0) mg/dL Acetaminophen (10.0-30.0) ug/mL 09/11/19 09/11/19 09/11/19 Range/Units 10:47 10:47 10:47 WBC (4.5-11.0) K/mm3 RBC (3.65-5.03) M/mm3 Hgb (10.1-14.3) gm/dl Hct (30.3-42.9) % RDW (13.2-15.2) % Plt Count (140-440) K/mm3 Seg Neuts % (Manual) (40.0-70.0) % Lymphocytes % (Manual) (13.4-35.0) % Nucleated RBC % (0.0-0.9) % Seg Neutrophils # Man (1.8-7.7) K/mm3 PT (12.2-14.9) Sec. INR (0.87-1.13) Sodium (137-145) mmol/L Chloride (98-107) mmol/L Carbon Dioxide (22-30) mmol/L Creatinine (0.7-1.2) mg/dL Glucose (65-100) mg/dL POC Glucose (70-105) Hemoglobin A1c (4-6) % Lactic Acid (0.7-2.0) mmol/L Calcium (8.4-10.2) mg/dL Total Bilirubin (0.1-1.2) mg/dL Direct Bilirubin 0.7 H (0-0.2) mg/dL Ammonia 86.0 H (25-60) umol/L Troponin T 0.211 H* (0.00-0.029) ng/mL Total Protein 6.2 L (6.3-8.2) g/dL Albumin 2.1 L (3.9-5) g/dL LDL Cholesterol Direct 39 L (50-130) mg/dL HDL Cholesterol 21 L (40-59) mg/dL Salicylates < 0.3 L (2.8-20.0) mg/dL Acetaminophen (10.0-30.0) ug/mL 09/11/19 09/11/19 09/11/19 Range/Units 10:47 10:47 15:55 WBC (4.5-11.0) K/mm3 RBC (3.65-5.03) M/mm3 Hgb (10.1-14.3) gm/dl Hct (30.3-42.9) % RDW (13.2-15.2) % Plt Count (140-440) K/mm3 Seg Neuts % (Manual) (40.0-70.0) % Lymphocytes % (Manual) (13.4-35.0) % Nucleated RBC % (0.0-0.9) % Seg Neutrophils # Man (1.8-7.7) K/mm3 PT (12.2-14.9) Sec. INR (0.87-1.13) Sodium (137-145) mmol/L Chloride (98-107) mmol/L Carbon Dioxide (22-30) mmol/L Creatinine (0.7-1.2) mg/dL Glucose (65-100) mg/dL POC Glucose (70-105) Hemoglobin A1c 6.4 H (4-6) % Lactic Acid 2.40 H* (0.7-2.0) mmol/L Calcium (8.4-10.2) mg/dL Total Bilirubin (0.1-1.2) mg/dL Direct Bilirubin (0-0.2) mg/dL Ammonia (25-60) umol/L Troponin T (0.00-0.029) ng/mL Total Protein (6.3-8.2) g/dL Albumin (3.9-5) g/dL LDL Cholesterol Direct (50-130) mg/dL HDL Cholesterol (40-59) mg/dL Salicylates (2.8-20.0) mg/dL Acetaminophen < 5.0 L (10.0-30.0) ug/mL 09/11/19 09/11/19 09/12/19 Range/Units 15:55 19:44 07:24 WBC (4.5-11.0) K/mm3 RBC (3.65-5.03) M/mm3 Hgb (10.1-14.3) gm/dl Hct (30.3-42.9) % RDW (13.2-15.2) % Plt Count (140-440) K/mm3 Seg Neuts % (Manual) (40.0-70.0) % Lymphocytes % (Manual) (13.4-35.0) % Nucleated RBC % (0.0-0.9) % Seg Neutrophils # Man (1.8-7.7) K/mm3 PT (12.2-14.9) Sec. INR (0.87-1.13) Sodium (137-145) mmol/L Chloride (98-107) mmol/L Carbon Dioxide (22-30) mmol/L Creatinine (0.7-1.2) mg/dL Glucose (65-100) mg/dL POC Glucose (70-105) Hemoglobin A1c (4-6) % Lactic Acid 2.10 H* 2.20 H* (0.7-2.0) mmol/L Calcium (8.4-10.2) mg/dL Total Bilirubin (0.1-1.2) mg/dL Direct Bilirubin (0-0.2) mg/dL Ammonia (25-60) umol/L Troponin T 0.207 H* (0.00-0.029) ng/mL Total Protein (6.3-8.2) g/dL Albumin (3.9-5) g/dL LDL Cholesterol Direct (50-130) mg/dL HDL Cholesterol (40-59) mg/dL Salicylates (2.8-20.0) mg/dL Acetaminophen (10.0-30.0) ug/mL 09/12/19 09/12/19 09/12/19 Range/Units 07:24 07:24 08:08 WBC 11.8 H (4.5-11.0) K/mm3 RBC 3.21 L (3.65-5.03) M/mm3 Hgb 9.2 L (10.1-14.3) gm/dl Hct 29.9 L (30.3-42.9) % RDW 26.0 H (13.2-15.2) % Plt Count 95 L (140-440) K/mm3 Seg Neuts % (Manual) (40.0-70.0) % Lymphocytes % (Manual) (13.4-35.0) % Nucleated RBC % (0.0-0.9) % Seg Neutrophils # Man (1.8-7.7) K/mm3 PT (12.2-14.9) Sec. INR (0.87-1.13) Sodium 135 L (137-145) mmol/L Chloride 97.1 L (98-107) mmol/L Carbon Dioxide 21 L (22-30) mmol/L Creatinine 3.2 H (0.7-1.2) mg/dL Glucose 105 H (65-100) mg/dL POC Glucose 113 H (70-105) Hemoglobin A1c (4-6) % Lactic Acid (0.7-2.0) mmol/L Calcium (8.4-10.2) mg/dL Total Bilirubin 1.30 H (0.1-1.2) mg/dL Direct Bilirubin (0-0.2) mg/dL Ammonia (25-60) umol/L Troponin T (0.00-0.029) ng/mL Total Protein (6.3-8.2) g/dL Albumin 2.4 L (3.9-5) g/dL LDL Cholesterol Direct (50-130) mg/dL HDL Cholesterol (40-59) mg/dL Salicylates (2.8-20.0) mg/dL Acetaminophen (10.0-30.0) ug/mL Assessment and Plan Cultures: 08/25/19 blood culture: NGTD 08/26 LLE wound culture: Pseudomonas, Proteus, Enterobacter 08/26 RLE wound culture: Proteus, E.coli, Enterobacter 08/26 buttock wound culture: Pseudomonas, Proteus, Enterococcus 09/02/2019 left foot dorsum: E coli pansensitive 09/10/2019 blood culture no growth today Assessment: 44 yo female with history of ESRD on HD, HTN, liver disease, cellulitis, morbidly obese, chronic bilateral leg ulcerations well known to our service, multiple admissions, recently new left foot dorsum abscess s/p I&D grew E coli at the bedside by Dr. Michelle, tendon exposure, discharged on ceftazidime 2 gm IV after HD on Friday, 2 gm IV after HD on Friday and 3 gm IV after HD on Friday for 3 weeks till 09/23/2019, now with AMS/fever: 1) AMS: likely opioids OD, improved after narcan 2) SIRS: with fever at home and hypotension, elevated lactate. CXR with pulmonary edema. Blood culture so far negative. ? likely persistent wound infection. 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 Cultures polymicrobial in the past. Treated in the past with ceftazidime/vanco iv on HD x 7 days till 09/02/2019. Recently new left foot dorsum abscess s/p I&D grew E coli at the bedside by Dr. Michelle, tendon exposure, discharged on ceftazidime 2 gm IV after HD on Friday, 2 gm IV after HD on Friday and 3 gm IV after HD on Friday for 3 weeks till 09/23/2019, now with AMS/fever: 4) Chronic dermatitis: unknown etiology Recs: continue cefepime renally adjusted for now wound care consult Dr Michelle consult for wound eval risk for amputation Dr Caden moe tomorrow Will follow. Thanks for consultation Olivia Lipscomb MD [facility] ([facility]) M [phone] O [phone]
[2019-09-12 12:18] LABS: Total Cells Counted 100
[2019-09-12 12:25] LABS: Anisocytosis 2+
[2019-09-12 12:26] LABS: Hypochromasia 2+; Macrocytosis 1+; Platelet Estimate Consistent w Auto; Target Cells 1+
--- NOTE | 2019-09-12 13:33 | Progress Note ---
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 * Lactic acidosis * Anemia secondary to ESRD * Medical noncompliance * Hx of enterococcal bacteremia Plan: * Continue HD MWF schedule, if hemodynamically stable * UF as tolerated, * Monitor lytes and volume status closely * Abx per ID; will plan to continue IV antibiotics * Epogen TIW, no IV iron given infection * Renal diet * Dose medications for renal function Subjective Date of service: 09/12/19 Principal diagnosis: esrd, sepsis Interval history: readmitted due to sepsis Objective - Exam Narrative Exam: Assessment and Plan General appearance: well-developed, well-nourished, appears stated age EENT: PERRL, mucous membranes moist Neck: no JVD, no thyromegaly, no carotid bruit, supple, other (IJ PermCath in place) Respiratory: Present: Clear to Ascultation Cardiology: regular, normal heart rate, S1S2, no murmurs Gastrointestinal: normal, normoactive bowel sounds Integumentary: other (bilateral pitting edema. Both legs wrapped with bandage) - Vital Signs Vital signs: Vital Signs - 12hr 09/12/19 09/12/19 09/12/19 04:00 04:02 04:03 Temperature 98.4 F Pulse Rate 99 H 101 H Respiratory 20 Rate Blood Pressure 141/80 O2 Sat by Pulse 95 Oximetry 09/12/19 09/12/19 08:46 12:44 Temperature Pulse Rate 128 H Respiratory Rate Blood Pressure O2 Sat by Pulse 95 Oximetry - Lab 09/12/19 07:24 09/12/19 07:24 Most recent lab results Calcium 8.7 mg/dL (8.4-10.2) 09/12/19 07:24 Medications & Allergies - Medications Allergies/Adverse Reactions: Allergies No Known Allergies Allergy (Verified 03/12/19 12:23) Home Medications: Home Medications Medication Instructions Recorded Confirmed Last Taken Type Ergocalciferol(Vitamin D2)(Nf) 800 unit PO DAILY 07/06/19 09/12/19 1 Day Ago History [Vitamin D (Nf)] ~08/12/19 cloNIDine [Catapres] 0.2 mg PO BID 07/06/19 09/12/19 08/28/19 22:00 History Pantoprazole [Protonix TAB] 40 mg PO QDAY #30 tablet 07/14/19 09/12/19 08/13/19 Rx Insulin NPH/Regular [NovoLIN 70/30] 5 unit SUB-Q BIDDIAB units 08/13/19 09/12/19 Unknown Rx Insulin NPH/Regular [NovoLIN 70/30] 5 unit SUB-Q BIDDIAB #10 ml 08/13/19 09/12/19 Unknown Rx Lactulose [Cephulac] 20 gm PO BID oral.liqd 08/13/19 09/12/19 Unknown Rx ALBUTEROL NEB's [Proventil 0.083% 2.5 mg IH Q3HRT PRN #30 nebu 09/02/19 09/12/19 Unknown Rx NEBS] oxyCODONE ER [oxyCONTIN ER] 10 mg PO Q12HR PRN #10 tablet 09/02/19 09/12/19 Unknown Rx Active Medications: Generic Name Dose Route Start Last Admin Trade Name Kimberley PRN Reason Stop Dose Admin Acetaminophen 650 mg 09/11/19 22:36 Tylenol PO Q4H PRN Pain MILD(1-3)/Fever >100.5/[place] Albuterol 2.5 mg 09/11/19 22:31 Proventil IH Q3HRT PRN Shortness Of Breath Cholecalciferol 800 unit 09/12/19 10:00 09/12/19 10:08 Vitamin D3 PO 800 unit QDAY [facility] Administration Famotidine 10 mg 09/11/19 23:00 09/12/19 10:08 Pepcid IV 10 mg BID [facility] Administration Hydromorphone HCl 1 mg 09/11/19 22:36 Dilaudid IV Q3H PRN Pain , Severe (7-10) Sodium Chloride 1,000 mls @ 100 mls/hr 09/11/19 18:00 09/12/19 10:09 Nacl 0.9% 1000 Ml IV 100 mls/hr DIRECT [facility] Administration Cefepime HCl 1 gm in 100 mls @ 200 mls/hr 09/12/19 06:00 09/12/19 06:30 Cefepime/Ns 1 Gm/100 Ml IV 200 mls/hr Q12H [facility] Administration Protocol Insulin Human Isoph/Insulin Regular 10 unit 09/12/19 08:00 09/12/19 10:09 Humulin 70/30 SUB-Q 10 unit BIDDIAB [facility] Administration Insulin Human Lispro 0 unit 09/12/19 07:30 09/12/19 12:57 Humalog SUB-Q Not Given ACHS [facility] Protocol Lactulose 20 gm 09/11/19 23:00 09/12/19 10:12 Cephulac PO Not Given BID [facility] Ondansetron HCl 4 mg 09/11/19 22:36 09/12/19 00:11 Zofran IV 4 mg Q8H PRN Administration Nausea And Vomiting Oxycodone/Acetaminophen 1 tab 09/11/19 22:36 Percocet 5/325 PO Q6H PRN Pain, Moderate (4-6) Sodium Chloride 10 ml 09/12/19 10:00 09/12/19 10:10 Sodium Chloride Flush Syringe 10 Ml IV 10 ml BID [facility] Administration Sodium Chloride 10 ml 09/11/19 22:36 Sodium Chloride Flush Syringe 10 Ml IV PRN PRN LINE FLUSH
--- NOTE | 2019-09-12 15:06 | Event Note ---
Date: 09/12/19 Consult noted. Discuss[address] with Dr. Arizmendi. Patient has undergone many debridements by Dr. Michelle and follows with Dr. Michelle in wound care center. Please change surgical consult to Dr. Michelle for evaluation for debridement vs amputation.
--- NOTE | 2019-09-12 15:35 | Progress Note ---
Assessment and Plan - Patient Problems (1) Infected open wound Current Visit: Yes Status: Acute Plan to address problem: Patient has persistent open wounds. Patient currently on antibiotics IV that was started last week from last hospitalization. (2) Morbid (severe) obesity due to excess calories Current Visit: Yes Status: Acute Plan to address problem: Encourage decreased diet Smart meal plan. Cars. (3) Septic shock Current Visit: Yes Status: Acute Plan to address problem: Patient diagnosed with septic shock was febrile hypotensive upon admission. Po ssibility it could be secondary to narcotic use. Description of altered mental status and the with return to baseline was more consistent with polypharmacy as opposed to sepsis however does meet criteria and will treat for underlying sepsis we'll continue current antibiotic coverage now. Cultures have been obtained. (4) ESRD (end stage renal disease) Current Visit: Yes Status: Chronic Plan to address problem: Patient to continue hemodialysis as indicated Friday. Nephrology has been consulted. (5) IDDM (insulin dependent diabetes mellitus) Current Visit: Yes Status: Chronic Plan to address problem: Accu-Chek stable most recent 105. No changes in medical management. (6) HTN (hypertension) Current Visit: No Status: Acute Qualifiers: Hypertension type: essential hypertension Qualified Code(s): I10 - Essential (primary) hypertension Plan to address problem: Patient hypotensive continue to hold all antihypertensive medication. (7) CHF (congestive heart failure) Current Visit: No Status: Chronic Qualifiers: Heart failure type: diastolic Plan to address problem: At present pressure well compensated congestive heart failure compensated except for edema secondary to infection. Multiple lower extremity wounds. (8) Calciphylaxis Current Visit: No Status: Chronic Plan to address problem: Patient has multiple lower extremity wounds bandaged only the right leg revealed different stages of healing continue present antibiotic coverage. IV. (9) T2DM (type 2 diabetes mellitus) Current Visit: No Status: Chronic (10) Altered mental status Current Visit: Yes Status: Acute Plan to address problem: Multifactorial secondary to sepsis and probably some degree of polypharmacy as well. Discontinue oxycodone treat with tramadol. History Interval history: Patient 44-year-old obese female with end-stage renal disease on hemodialysis hypertension diabetes congestive heart failure extensive lower extremity wounds and cellulitis. Currently on IV cefepime presented to the ER for altered mental status. Family member at bedside and stated they gave the patient also whole pill of Percocet for pain after she came from dialysis and patient was acting that way ever since. Patient now is alert and oriented 3 back to baseline. Family at bedside stated patient came immediately back to baseline this morning. Patient denies any concerns this morning states she feels fine states she will never take a whole pill without pill again. Upon presentation to ED however patient temperature 101 blood pressure 80/42 was admitted with sepsis septic shock. Hospitalist Physical - Constitutional Vitals: Temp Pulse Resp BP Pulse Ox 98.4 F 128 H 20 141/80 95 09/12/19 04:03 09/12/19 12:44 09/12/19 04:02 09/12/19 04:02 09/12/19 08:46 General appearance: Present: no acute distress, well-nourished, obese - EENT Eyes: Present: PERRL, EOM intact ENT: hearing intact, clear oral mucosa, dentition normal, other (patient has extensive wounds ) - Neck Neck: Present: supple, normal ROM - Respiratory Respiratory effort: normal Respiratory: bilateral: CTA, diminished (decrease effort morbidly obese.) - Cardiovascular Rhythm: regular Heart Sounds: Present: S1 & S2 - Extremities Extremity abnormal: edema, erythema, other (multiple wounds calciphylaxis) - Abdominal General gastrointestinal: soft, non-distended, normal bowel sounds, other (obese) - Psychiatric Psychiatric: appropriate mood/affect, intact judgment & insight, memory intact - Neurologic Neurologic: CNII-XII intact, focal deficits, moves all extremities Results - Labs CBC & Chem 7: 09/12/19 07:24 09/12/19 07:24 Labs: Laboratory Last Values WBC 11.8 K/mm3 (4.5-11.0) H 09/12/19 07:24 RBC 3.21 M/mm3 (3.65-5.03) L 09/12/19 07:24 Hgb 9.2 gm/dl (10.1-14.3) L 09/12/19 07:24 Hct 29.9 % (30.3-42.9) L 09/12/19 07:24 MCV 93 fl (79-97) 09/12/19 07:24 MCH 29 pg (28-32) 09/12/19 07:24 MCHC 31 % (30-34) 09/12/19 07:24 RDW 26.0 % (13.2-15.2) H 09/12/19 07:24 Plt Count 95 K/mm3 (140-440) L 09/12/19 07:24 Add Manual Diff Complete 09/12/19 07:24 Total Counted 100 09/12/19 07:24 Seg Neuts % (Manual) 82.0 % (40.0-70.0) H 09/12/19 07:24 Band Neutrophils % 0 % 09/12/19 07:24 Lymphocytes % (Manual) 7.0 % (13.4-35.0) L 09/12/19 07:24 Reactive Lymphs % (Man) 1.0 % 09/12/19 07:24 Monocytes % (Manual) 6.0 % (0.0-7.3) 09/12/19 07:24 Eosinophils % (Manual) 1.0 % (0.0-4.3) 09/12/19 07:24 Basophils % (Manual) 3.0 % (0.0-1.8) H 09/12/19 07:24 Metamyelocytes % 0 % 09/12/19 07:24 Myelocytes % 0 % 09/12/19 07:24 Promyelocytes % 0 % 09/12/19 07:24 Blast Cells % 0 % 09/12/19 07:24 Nucleated RBC % 2.0 % (0.0-0.9) H 09/12/19 07:24 Seg Neutrophils # Man 9.7 K/mm3 (1.8-7.7) H 09/12/19 07:24 Band Neutrophils # 0.0 K/mm3 09/12/19 07:24 Lymphocytes # (Manual) 0.8 K/mm3 (1.2-5.4) L 09/12/19 07:24 Abs React Lymphs (Man) 0.1 K/mm3 09/12/19 07:24 Monocytes # (Manual) 0.7 K/mm3 (0.0-0.8) 09/12/19 07:24 Eosinophils # (Manual) 0.1 K/mm3 (0.0-0.4) 09/12/19 07:24 Basophils # (Manual) 0.4 K/mm3 (0.0-0.1) H 09/12/19 07:24 Metamyelocytes # 0.0 K/mm3 09/12/19 07:24 Myelocytes # 0.0 K/mm3 09/12/19 07:24 Promyelocytes # 0.0 K/mm3 09/12/19 07:24 Blast Cells # 0.0 K/mm3 09/12/19 07:24 WBC Morphology Not Reportable 09/12/19 07:24 Hypersegmented Neuts Not Reportable 09/12/19 07:24 Hyposegmented Neuts Not Reportable 09/12/19 07:24 Hypogranular Neuts Not Reportable 09/12/19 07:24 Smudge Cells Not Reportable 09/12/19 07:24 Toxic Granulation Not Reportable 09/12/19 07:24 Toxic Vacuolation Not Reportable 09/12/19 07:24 Dohle Bodies Not Reportable 09/12/19 07:24 Pelger-Huet Anomaly Not Reportable 09/12/19 07:24 Sara Rods Not Reportable 09/12/19 07:24 Platelet Estimate Consistent w auto 09/12/19 07:24 Clumped Platelets Not Reportable 09/12/19 07:24 Plt Clumps, EDTA Not Reportable 09/12/19 07:24 Large Platelets Not Reportable 09/12/19 07:24 Giant Platelets Not Reportable 09/12/19 07:24 Platelet Satelliting Not Reportable 09/12/19 07:24 Plt Morphology Comment Not Reportable 09/12/19 07:24 RBC Morphology Not Reportable 09/12/19 07:24 Dimorphic RBCs Not Reportable 09/12/19 07:24 Polychromasia 1+ 09/12/19 07:24 Hypochromasia 2+ 09/12/19 07:24 Poikilocytosis Not Reportable 09/12/19 07:24 Anisocytosis 2+ 09/12/19 07:24 Microcytosis Not Reportable 09/12/19 07:24 Macrocytosis 1+ 09/12/19 07:24 Spherocytes Not Reportable 09/12/19 07:24 Pappenheimer Bodies Not Reportable 09/12/19 07:24 Sickle Cells Not Reportable 09/12/19 07:24 Target Cells 1+ 09/12/19 07:24 Tear Drop Cells Not Reportable 09/12/19 07:24 Ovalocytes Not Reportable 09/12/19 07:24 Helmet Cells Not Reportable 09/12/19 07:24 Chi-Jet Bodies Not Reportable 09/12/19 07:24 Aguada Rings Not Reportable 09/12/19 07:24 Raciel Cells Not Reportable 09/12/19 07:24 Bite Cells Not Reportable 09/12/19 07:24 Crenated Cell Not Reportable 09/12/19 07:24 Elliptocytes Not Reportable 09/12/19 07:24 Acanthocytes (Spur) Not Reportable 09/12/19 07:24 Rouleaux Not Reportable 09/12/19 07:24 Hemoglobin C Crystals Not Reportable 09/12/19 07:24 Schistocytes Not Reportable 09/12/19 07:24 Malaria parasites Not Reportable 09/12/19 07:24 Adarsh Bodies Not Reportable 09/12/19 07:24 Hem Pathologist Commnt No 09/12/19 07:24 PT 20.2 Sec. (12.2-14.9) H 09/11/19 10:47 INR 1.76 (0.87-1.13) H 09/11/19 10:47 APTT 29.4 Sec. (24.2-36.6) 09/11/19 10:47 Sodium 135 mmol/L (137-145) L 09/12/19 07:24 Potassium 3.9 mmol/L (3.6-5.0) 09/12/19 07:24 Chloride 97.1 mmol/L (98-107) L 09/12/19 07:24 Carbon Dioxide 21 mmol/L (22-30) L 09/12/19 07:24 Anion Gap 21 mmol/L 09/12/19 07:24 BUN 16 mg/dL (7-17) 09/12/19 07:24 Creatinine 3.2 mg/dL (0.7-1.2) H 09/12/19 07:24 Estimated GFR 19 ml/min 09/12/19 07:24 BUN/Creatinine Ratio 5 % 09/12/19 07:24 Glucose 105 mg/dL (65-100) H 09/12/19 07:24 POC Glucose 96 (70-105) 09/12/19 12:04 Hemoglobin A1c 6.4 % (4-6) H 09/11/19 10:47 Lactic Acid 2.20 mmol/L (0.7-2.0) H* 09/12/19 07:24 Calcium 8.7 mg/dL (8.4-10.2) 09/12/19 07:24 Total Bilirubin 1.30 mg/dL (0.1-1.2) H 09/12/19 07:24 Direct Bilirubin 0.7 mg/dL (0-0.2) H 09/11/19 10:47 Indirect Bilirubin 0.4 mg/dL 09/11/19 10:47 AST 23 units/L (5-40) 09/12/19 07:24 ALT 12 units/L (7-56) 09/12/19 07:24 Alkaline Phosphatase 118 units/L (35-129) 09/12/19 07:24 Ammonia 86.0 umol/L (25-60) H 09/11/19 10:47 Troponin T 0.207 ng/mL (0.00-0.029) H* 09/11/19 15:55 Total Protein 7.5 g/dL (6.3-8.2) D 09/12/19 07:24 Albumin 2.4 g/dL (3.9-5) L 09/12/19 07:24 Albumin/Globulin Ratio 0.5 % 09/12/19 07:24 Triglycerides 112 mg/dL (2-149) 09/11/19 10:47 Cholesterol 84 mg/dL (50-199) 09/11/19 10:47 LDL Cholesterol Direct 39 mg/dL (50-130) L 09/11/19 10:47 HDL Cholesterol 21 mg/dL (40-59) L 09/11/19 10:47 Cholesterol/HDL Ratio 4.00 % 09/11/19 10:47 Salicylates < 0.3 mg/dL (2.8-20.0) L 09/11/19 10:47 Acetaminophen < 5.0 ug/mL (10.0-30.0) L 09/11/19 10:47 Active Medications - Current Medications Current Medications: Generic Name Dose Route Start Last Admin Trade Name Freq PRN Reason Stop Dose Admin Acetaminophen 650 mg 09/11/19 22:36 Tylenol PO Q4H PRN Pain MILD(1-3)/Fever >100.5/[place] Albuterol 2.5 mg 09/11/19 22:31 Proventil IH Q3HRT PRN Shortness Of Breath Cholecalciferol 800 unit 09/12/19 10:00 09/12/19 10:08 Vitamin D3 PO 800 unit QDAY WALT Administration Famotidine 10 mg 09/11/19 23:00 09/12/19 10:08 Pepcid IV 10 mg BID WALT Administration Hydromorphone HCl 1 mg 09/11/19 22:36 Dilaudid IV Q3H PRN Pain , Severe (7-10) Sodium Chloride 1,000 mls @ 100 mls/hr 09/11/19 18:00 09/12/19 10:09 Nacl 0.9% 1000 Ml IV 100 mls/hr DIRECT WALT Administration Cefepime HCl 1 gm in 100 mls @ 200 mls/hr 09/12/19 06:00 09/12/19 06:30 Cefepime/Ns 1 Gm/100 Ml IV 200 mls/hr Q12H WALT Administration Protocol Insulin Human Isoph/Insulin Regular 10 unit 09/12/19 08:00 09/12/19 10:09 Humulin 70/30 SUB-Q 10 unit BIDDIAB WALT Administration Insulin Human Lispro 0 unit 09/12/19 07:30 09/12/19 12:57 Humalog SUB-Q Not Given ACHS [facility] Protocol Lactulose 20 gm 09/11/19 23:00 09/12/19 10:12 Cephulac PO Not Given BID WALT Ondansetron HCl 4 mg 09/11/19 22:36 09/12/19 00:11 Zofran IV 4 mg Q8H PRN Administration Nausea And Vomiting Oxycodone/Acetaminophen 1 tab 09/11/19 22:36 Percocet 5/325 PO Q6H PRN Pain, Moderate (4-6) Sodium Chloride 10 ml 09/12/19 10:00 09/12/19 10:10 Sodium Chloride Flush Syringe 10 Ml IV 10 ml BID WALT Administration Sodium Chloride 10 ml 09/11/19 22:36 Sodium Chloride Flush Syringe 10 Ml IV PRN PRN LINE FLUSH
[2019-09-12] MEDS ORDERED: traMADol 50 MG TAB PO PRN (15:39)
[2019-09-13] MEDS: CEFEPIME/NS 1 GM/100 ML 1 GM/100 ML BAG IV SCH (05:50)
[2019-09-13] MEDS: INSULIN NPH/REGULAR 70/30 INJ SUB-Q SCH ×2 (08:00→17:06)
[2019-09-13] MEDS: INSULIN LISPRO 100 UNIT/ML SUB-Q SCH ×3 (08:02→17:00)
[2019-09-13] MEDS ORDERED: SODIUM CHLORIDE 0.9% 100 ML IV PRN (08:45)
[2019-09-13] MEDS ORDERED: CEFEPIME/NS 2 GM/100 ML 2 GM/100 ML BAG IV SCH (10:00)
[2019-09-13] MEDS: FAMOTIDINE 20 MG/2 ML INJ IV SCH (10:15)
[2019-09-13] MEDS: LACTULOSE 20 GM/30 ML ORAL LIQD PO SCH (10:15)
[2019-09-13] MEDS: CHOLECALCIFEROL (VIT D3) 400 UNIT TAB PO SCH (10:15)
--- NOTE | 2019-09-13 10:27 | Progress Note ---
Assessment and Plan Assessment * End-stage renal disease on HD (outpatient unit [facility]) * Bilateral LE wound infection * sepsis * hypotension * Calciphylaxis w/ superimposed polymicrobial wound infection * Lactic acidosis * Anemia secondary to ESRD * Medical noncompliance * Hx of enterococcal bacteremia Plan: * Continue HD MWF schedule, if hemodynamically stable. Due today * UF as tolerated * BP reasonable, continue current regimen * Monitor lytes and volume status closely * Abx per ID; will plan to continue IV antibiotics * Epogen TIW, no IV iron given infection; goal hemoglobin 10-11 * Renal diet * Dose medications for renal function * Appreciate surgery and ID input Subjective Date of service: 09/13/19 Principal diagnosis: esrd, sepsis Interval history: No acute events noted overnight. Patient more awake and alert this AM. No specific concerns, wants to go home. Explained case and reason for observation in hospital. Objective - Exam Narrative Exam: General appearance: well-developed, alert, appears stated age EENT: PERRL, mucous membranes moist Neck: supple, IJ PermCath noted Respiratory: Clear to Auscultation Cardiology: regular, normal heart rate, S1S2, no murmurs Gastrointestinal: normal, normoactive bowel sounds Integumentary: Both legs wrapped with bandage, otherwise intact Extremities: bilateral pitting edema. - Vital Signs Vital signs: Vital Signs - 12hr 09/12/19 09/13/19 09/13/19 23:11 04:14 08:24 Temperature 98.0 F 97.7 F 97.4 F L Pulse Rate 124 H 121 H 116 H Respiratory 18 18 20 Rate Blood Pressure 160/100 141/98 130/84 O2 Sat by Pulse 100 100 96 Oximetry 09/13/19 10:00 Temperature Pulse Rate Respiratory Rate Blood Pressure O2 Sat by Pulse 100 Oximetry - Lab 09/12/19 07:24 09/12/19 07:24 Most recent lab results Calcium 8.7 mg/dL (8.4-10.2) 09/12/19 07:24 Medications & Allergies - Medications Allergies/Adverse Reactions: Allergies No Known Allergies Allergy (Verified 03/12/19 12:23) Home Medications: Home Medications Medication Instructions Recorded Confirmed Last Taken Type Ergocalciferol(Vitamin D2)(Nf) 800 unit PO DAILY 07/06/19 09/12/19 1 Day Ago History [Vitamin D (Nf)] ~10/24/19 cloNIDine [Catapres] 0.2 mg PO BID 07/06/19 09/12/19 08/28/19 22:00 History Pantoprazole [Protonix TAB] 40 mg PO QDAY #30 tablet 07/14/19 09/12/19 08/13/19 Rx Insulin NPH/Regular [NovoLIN 70/30] 5 unit SUB-Q BIDDIAB units 08/13/19 09/12/19 Unknown Rx Insulin NPH/Regular [NovoLIN 70/30] 5 unit SUB-Q BIDDIAB #10 ml 08/13/19 09/12/19 Unknown Rx Lactulose [Cephulac] 20 gm PO BID oral.liqd 08/13/19 09/12/19 Unknown Rx ALBUTEROL NEB's [Proventil 0.083% 2.5 mg IH Q3HRT PRN #30 nebu 09/02/19 09/12/19 Unknown Rx NEBS] oxyCODONE ER [oxyCONTIN ER] 10 mg PO Q12HR PRN #10 tablet 09/02/19 09/12/19 Unknown Rx Active Medications: Generic Name Dose Route Start Last Admin Trade Name Freq PRN Reason Stop Dose Admin Acetaminophen 650 mg 09/11/19 22:36 Tylenol PO Q4H PRN Pain MILD(1-3)/Fever >100.5/[place] Albuterol 2.5 mg 09/11/19 22:31 Proventil IH Q3HRT PRN Shortness Of Breath Cholecalciferol 800 unit 09/12/19 10:00 09/12/19 10:08 Vitamin D3 PO 800 unit QDAY WALT Administration Famotidine 10 mg 09/11/19 23:00 09/12/19 22:54 Pepcid IV 10 mg BID WALT Administration Hydromorphone HCl 1 mg 09/11/19 22:36 Dilaudid IV Q3H PRN Pain , Severe (7-10) Cefepime HCl 2 gm in 100 mls @ 200 mls/hr 09/13/19 10:00 Cefepime/Ns 2 Gm/100 Ml IV Q24HR WALT Sodium Chloride 100 mls @ 999 mls/hr 09/13/19 08:45 Nacl 0.9% IV AMBER PRN Hypotension Insulin Human Isoph/Insulin Regular 10 unit 09/12/19 08:00 09/12/19 17:13 Humulin 70/30 SUB-Q 10 unit BIDDIAB WALT Administration Insulin Human Lispro 0 unit 09/12/19 07:30 09/12/19 22:54 Humalog SUB-Q Not Given ACHS [facility] Protocol Lactulose 20 gm 09/11/19 23:00 09/12/19 22:54 Cephulac PO 20 gm BID WALT Administration Ondansetron HCl 4 mg 09/11/19 22:36 09/12/19 00:11 Zofran IV 4 mg Q8H PRN Administration Nausea And Vomiting Sodium Chloride 10 ml 09/12/19 10:00 09/12/19 22:54 Sodium Chloride Flush Syringe 10 Ml IV 10 ml BID WALT Administration Sodium Chloride 10 ml 09/11/19 22:36 Sodium Chloride Flush Syringe 10 Ml IV PRN PRN LINE FLUSH Tramadol HCl 50 mg 09/12/19 15:39 Ultram PO Q6H PRN Pain, Moderate (4-6)
--- NOTE | 2019-09-13 11:22 | Progress Note ---
Assessment and Plan Cultures: blood culture 09/11/19 - pending. 44 yo female with history of ESRD on HD, HTN, liver disease, cellulitis, morbidly obese, chronic bilateral leg ulcerations well known to our service, multiple admissions, recently new left foot dorsum abscess s/p I&D grew E coli at the bedside by Dr. Michelle, tendon exposure, discharged on ceftazidime 2 gm IV after HD on Friday, 2 gm IV after HD on Friday and 3 gm IV after HD on Friday for 3 weeks till 09/23/2019, now with AMS/fever: 1) AMS: likely opioids OD, improved after narcan 2) SIRS: with fever at home and hypotension, elevated lactate. CXR with pulmonary edema. Blood culture so far negative. ? likely persistent wound infection. 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 Cultures polymicrobial in the past. Treated in the past with ceftazidime/vanco iv on HD x 7 days till 09/02/2019. Recently new left foot dorsum abscess s/p I&D grew E coli at the bedside by Dr. Michelle, tend on exposure, discharged on ceftazidime 2 gm IV after HD on Friday, 2 gm IV after HD on Friday and 3 gm IV after HD on Friday for 3 weeks till 09/23/2019, now with AMS/fever: 4) Chronic dermatitis: unknown etiology Recs: continue cefepime renally adjusted for now wound care consult Dr Michelle consult for wound eval risk for amputation [facility] M: [phone] O: [phone] F: [phone] Subjective Date of service: 09/13/19 Principal diagnosis: esrd, sepsis Interval history: Afebrile, slightly elevated white count. Objective - Exam Narrative Exam: Constitutional: Alert, cooperative. No acute distress. Obese Head, Ears, Nose: Normocephalic, atraumatic. External ears, nose normal Eyes: Conjunctivae/corneas clear. No icterus. No ptosis. Neck: Supple, no meningeal signs Oral: dentition fair, no thrush Cardiovascular: S1, S2 normal. Respiratory: Good air entry, clear to auscultation bilaterally GI: Soft, non-tender; obese Musculoskeletal: deondre legs with surg dressings Skin: chronic papular scaly rash Hem/Lymphatic: No palpable cervical or supraclavicular nodes. No lymphangitis Psych: Mood ok. Affect normal Neurological: Awake, alert, oriented. paraplegic - Constitutional Vitals: Vital Signs Temp Pulse Resp BP Pulse Ox 97.4 F L 116 H 20 130/84 100 09/13/19 08:24 09/13/19 08:24 09/13/19 08:24 09/13/19 08:24 09/13/19 10:00 Temperature -Last 24 Hours Temperature 97.4 F Temperature 97.7 F Temperature 98.0 F Temperature 97.5 F Temperature 98.0 F - Labs CBC & Chem 7: 09/12/19 07:24 09/12/19 07:24 Labs: Abnormal lab results 09/12/19 09/12/19 09/12/19 Range/Units 07:24 15:24 21:04 Seg Neuts % (Manual) 82.0 H (40.0-70.0) % Lymphocytes % (Manual) 7.0 L (13.4-35.0) % Basophils % (Manual) 3.0 H (0.0-1.8) % Nucleated RBC % 2.0 H (0.0-0.9) % Seg Neutrophils # Man 9.7 H (1.8-7.7) K/mm3 Lymphocytes # (Manual) 0.8 L (1.2-5.4) K/mm3 Basophils # (Manual) 0.4 H (0.0-0.1) K/mm3 Lactic Acid 2.20 H* 3.00 H* (0.7-2.0) mmol/L
--- NOTE | 2019-09-13 12:38 | Discharge Summary ---
Providers - Providers Date of Admission: 09/11/19 13:24 Date of discharge: 09/13/19 Attending physician: LUIS VASQUEZ 09/11/19 Consult to Case Management [CONS] Routine Services Needed at Discharge: Home Health Services Notified:: case assistant 09/12/19 07:35 Consult to Wound/ET Nurse [CONS] Routine Reason For Exam: wound eval 09/12/19 08:58 Consult to Physician [CONS] Routine Comment: Consulting Provider: LIVIER ALVARADO Physician Instructions: Reason For Exam: Sepsis 09/12/19 09:03 Consult to Physician [CONS] Routine Comment: Consulting Provider: SHAYNE BLACK Physician Instructions: Reason For Exam: Bilateral leg ulcers 09/12/19 09:09 Consult to Physician [CONS] Routine Comment: Consulting Provider: JIMENA FONTAINE Physician Instructions: Reason For Exam: esrd Primary care physician: ALKA EVANS Hospitalization Condition: Stable Hospital course: Patient 44 with extensive past medical history including is stage renal disease, bilateral lower sclerae cellulitis, morbid obesity presented with an acute episode of altered mental status G confusion. This began after taking a Percocet. Given the acuity of patient's rebound he did not appear this was not septic source and this was opioid induced. Patient has been back to baseline and for greater than 24 hours. States she feels good. [place]. No more fever. Patient has currently being treated for bilateral lower extremity wounds and this is where SIRS name from. Patient has current calciphylaxis Disposition: DC-01 TO HOME OR SELFCARE - Discharge Diagnoses (1) Infected open wound Status: Acute Comment: Continue cefepime at hemodialysis (2) Morbid (severe) obesity due to excess calories Status: Acute Comment: Discussed low carb diet. (3) Septic shock Status: Acute Comment: Resolved continue present antibiotics. Most likely opioid induced. sepsis ruled out (4) ESRD (end stage renal disease) Status: Chronic Comment: T hemodialysis Friday patient to receive cefepime at dialysis as previously indicated. (5) IDDM (insulin dependent diabetes mellitus) Status: Chronic Comment: Really has Controlled blood glucose. (6) HTN (hypertension) Status: Acute Qualifiers: Hypertension type: essential hypertension Qualified Code(s): I10 - Essential (primary) hypertension (7) CHF (congestive heart failure) Status: Chronic Qualifiers: Heart failure type: diastolic Comment: Very well compensated at present. (8) Calciphylaxis Status: Chronic Comment: Recent to follow with Dr. Michelle a wound clinic for further debridement. (9) T2DM (type 2 diabetes mellitus) Status: Chronic (10) Altered mental status Status: Acute Comment: Opioid-induced it has resolved. Core Measure Documentation - Palliative Care Palliative Care/ Comfort Measures: Not Applicable - Core Measures Any of the following diagnoses?: none Exam - Constitutional Vitals: Temp Pulse Resp BP Pulse Ox 97.4 F L 116 H 20 130/84 100 09/13/19 08:24 09/13/19 08:24 09/13/19 08:24 09/13/19 08:24 09/13/19 10:00 General appearance: Present: no acute distress, well-nourished - EENT Eyes: Present: PERRL ENT: hearing intact, clear oral mucosa - Neck Neck: Present: supple, normal ROM - Respiratory Respiratory effort: normal Respiratory: bilateral: CTA - Cardiovascular Heart Sounds: Present: S1 & S2. Absent: rub, click - Extremities Extremities: pulses symmetrical, No edema Extremity abnormal: other (bilateral lower extremity wounds. Some tingling exposure. Follow with Dr. Michelle.) Peripheral Pulses: within normal limits - Abdominal General gastrointestinal: Present: soft, non-tender, non-distended, normal bowel sounds Female genitourinary: Present: normal - Integumentary Integumentary: Present: clear, warm, dry - Musculoskeletal Musculoskeletal: gait normal, strength equal bilaterally - Psychiatric Psychiatric: appropriate mood/affect, intact judgment & insight - Neurologic Neurologic: CNII-XII intact, moves all extremities Plan Activity: advance as tolerated Weight Bearing Status: Partial Weight Bearing Diet: diabetic Follow up with: PRIMARY CARE, [Referring] - 3-5 Days
[2019-09-13 13:25] LABS: Hematocrit 29.7 % (30.3-42.9); Hemoglobin 9.1 gm/dl (10.1-14.3); Mean Corpuscular HGB Conc 31 % (30-34); Mean Corpuscular Volume 93 fl (79-97); Platelet Count 104 K/mm3 (140-440); Red Blood Count 3.17 M/mm3 (3.65-5.03)
[2019-09-13 13:28] LABS: Red Cell Distribution Width 26.4 % (13.2-15.2)
[2019-09-13 13:39] LABS: Calcium 8.9 mg/dL (8.4-10.2)
[2019-09-13] MEDS ORDERED: SODIUM CHLORIDE*PRIMING MACHINE ONLY FOR DIALYSIS MC ONE (14:56)
[2019-09-13 15:36] LABS: Anisocytosis 2+; Hypochromasia 2+; Macrocytosis 1+; Target Cells 1+; Total Cells Counted 100
[2019-09-13 15:37] LABS: Dimorphic RBC Yes
[2019-09-13 18:25] VITALS: BP 149/87
== END 2019-09-13 19:55 | disposition home health service (06) | DRG 602 ==
LOC: ED 10:07 → 4A 13:24
PROVIDERS: ADMIT Internal Medicine; ATTEND Internal Medicine
PROC: 5A1D70Z Performance of Urinary Filtration, Intermittent, Less than 6 Hours Per Day (ICD-10-PCS; principal; 2019-09-13)
DX: L03.116 Cellulitis of left lower limb (principal); N18.6 End stage renal disease; L97.929 Non-pressure chronic ulcer of unspecified part of left lower leg with unspecified severity; L97.919 Non-pressure chronic ulcer of unspecified part of right lower leg with unspecified severity; E87.2 Acidosis; R65.10 Systemic inflammatory response syndrome (SIRS) of non-infectious origin without acute organ dysfunction; I13.2 Hypertensive heart and chronic kidney disease with heart failure and with stage 5 chronic kidney disease, or end stage renal disease; Z68.43 Body mass index [BMI] 50.0-59.9, adult; I50.32 Chronic diastolic (congestive) heart failure; E66.01 Morbid (severe) obesity due to excess calories; D63.1 Anemia in chronic kidney disease; E11.22 Type 2 diabetes mellitus with diabetic chronic kidney disease; T40.2X5A Adverse effect of other opioids, initial encounter; R41.82 Altered mental status, unspecified; L03.115 Cellulitis of right lower limb; E83.59 Other disorders of calcium metabolism; I95.9 Hypotension, unspecified; L30.9 Dermatitis, unspecified; Z87.19 Personal history of other diseases of the digestive system; Z99.2 Dependence on renal dialysis; Z79.4 Long term (current) use of insulin; Z79.899 Other long term (current) drug therapy; Z91.19 Patient's noncompliance with other medical treatment and regimen
CPT/HCPCS: 36415; 70450; 71045; 80048; 80053; 80061; 80076; 80320; 82140; 82962; 83036; 84484; 85007; 85025; 85610; 85730; 87040; 87116; 93005; 93010; 96365; 96367; 96375; G0378; G0480; J0692; J1815; J2310; J2405; J3370; J7030; J7040

== ENCOUNTER 2019-09-23 14:51 | Inpatient (IN) | payer MEDICARE ==
[2019-09-23] MEDS ORDERED: dilTIAZem 25 MG/5 ML INJ IV ONE ×3 (16:53→17:56)
[2019-09-23] MEDS ORDERED: SODIUM CHLORIDE IRRI 500 ML 500 ML IR ONE (17:03)
[2019-09-23 17:13] LABS: Hematocrit 29.4 % (30.3-42.9); Hemoglobin 9.2 gm/dl (10.1-14.3); Mean Corpuscular HGB Conc 31 % (30-34); Mean Corpuscular Volume 90 fl (79-97); Platelet Count 195 K/mm3 (140-440); Red Blood Count 3.26 M/mm3 (3.65-5.03)
[2019-09-23 17:16] LABS: Red Cell Distribution Width 25.1 % (13.2-15.2)
--- NOTE | 2019-09-23 17:16 | XRay Report ---
CHEST 1 VIEW 09/23/2019 4:44 PM INDICATION / CLINICAL INFORMATION: palpitations. COMPARISON: One view of the chest from 09/11/2019. FINDINGS: SUPPORT DEVICES: Stable left internal jugular vein PermCath. HEART / MEDIASTINUM: Stable. LUNGS / PLEURA: No significant pulmonary or pleural abnormality. No pneumothorax. ADDITIONAL FINDINGS: No significant additional findings. IMPRESSION: 1. No acute abnormality of the chest. 2. Stable cardiomegaly. Signer Name: Ismael Omer MD Signed: 09/23/2019 5:12 PM Workstation Name: [id number]
[2019-09-23 17:22] LABS: INR 1.38 (0.87-1.13)
[2019-09-23 17:23] LABS: Partial Thromboplastin Time 30.2 Sec. (24.2-36.6)
[2019-09-23 17:34] LABS: Hematocrit 30.3 % (30.3-42.9); Hemoglobin 9.2 gm/dl (10.1-14.3); Mean Corpuscular HGB Conc 30 % (30-34); Mean Corpuscular Volume 92 fl (79-97); Platelet Count 193 K/mm3 (140-440); Red Blood Count 3.31 M/mm3 (3.65-5.03)
[2019-09-23 17:39] LABS: Red Cell Distribution Width 24.7 % (13.2-15.2)
[2019-09-23 17:42] LABS: Calcium 8.8 mg/dL (8.4-10.2)
[2019-09-23 17:44] LABS: INR 1.42 (0.87-1.13)
[2019-09-23 17:46] LABS: Albumin 2.2 g/dL (3.9-5); Calcium 8.8 mg/dL (8.4-10.2)
[2019-09-23 17:51] LABS: Chol/HDL Ratio 2.97 %
[2019-09-23 18:09] LABS: Band Neutrophils # (Manual) 0.1 K/mm3; Total Cells Counted 100
[2019-09-23 18:11] LABS: Anisocytosis 1+; Hypochromasia 1+; Macrocytosis 1+; Target Cells 1+
[2019-09-23 18:12] LABS: Platelet Estimate Consistent w Auto
[2019-09-23 18:30] LABS: Anisocytosis 1+; Macrocytosis 1+; Target Cells 1+; Total Cells Counted 100
[2019-09-23 18:31] LABS: Platelet Estimate Consistent w Auto
[2019-09-23] MEDS ORDERED: DEXTROSE 50% IN WATER (25GM) 50 ML SYRINGE IV PRN (19:57)
[2019-09-23] MEDS ORDERED: ONDANSETRON 4 MG/2 ML INJ IV PRN (19:57)
[2019-09-23] MEDS ORDERED: ACETAMINOPHEN 325 MG TAB PO PRN (19:57)
[2019-09-23] MEDS ORDERED: NITROGLYCERIN 0.4 MG TAB SUBL SL PRN (20:03)
[2019-09-23] MEDS ORDERED: diphenhydrAMINE 50 MG/ML VIAL IV PRN (20:06)
[2019-09-23] MEDS ORDERED: ALBUTEROL 8.5 GM INHALATION IH PRN (20:11)
[2019-09-23] MEDS ORDERED: CEFEPIME/NS 2 GM/100 ML 2 GM/100 ML BAG IV ONE ×2 (20:21→21:07)
[2019-09-23] MEDS ORDERED: METOPROLOL TARTRATE 5 MG/5 ML INJ IV ONE ×2 (20:22→21:07)
--- NOTE | 2019-09-23 20:25 | Emergency Department Report ---
ED General Adult HPI - General Chief complaint: Arrhythmia/Palpitations Stated complaint: IRREGULAR HEART BEAT Time Seen by Provider: 09/23/19 15:43 Source: EMS Mode of arrival: Stretcher Limitations: No Limitations - History of Present Illness Initial comments: 44 yo F w/ ESRD, diabetes, HTN, CHF presents to ED with elevated heart rate. Pt was at Dr Brink's office to have a vas cath placed and was found to be tachycardic into the 130s. Pt denies history of Afib. Pt denies any fever, chest pain, SOB. She is currently under the care of wound management and has undergone debriding of the wounds of her left foot and bilateral lower legs. -: This afternoon Quality: other (painless) Consistency: constant Improves with: none Worsens with: none Associated Symptoms: denies: chest pain, cough, fever/chills, nausea/vomiting, shortness of breath Treatments Prior to Arrival: none - Related Data Home Medications Medication Instructions Recorded Confirmed Last Taken Ergocalciferol(Vitamin D2)(Nf) 800 unit PO DAILY 07/06/19 09/23/19 1 Day Ago [Vitamin D (Nf)] ~08/12/19 cloNIDine [Catapres] 0.2 mg PO BID 07/06/19 09/23/19 08/28/19 22:00 Previous Rx's Medication Instructions Recorded Last Taken Type Pantoprazole [Protonix TAB] 40 mg PO QDAY #30 tablet 07/14/19 08/13/19 Rx Insulin NPH/Regular [NovoLIN 70/30] 5 unit SUB-Q BIDDIAB units 08/13/19 Unknown Rx Insulin NPH/Regular [NovoLIN 70/30] 5 unit SUB-Q BIDDIAB #10 ml 08/13/19 Unknown Rx Lactulose [Cephulac] 20 gm PO BID oral.liqd 08/13/19 Unknown Rx ALBUTEROL NEB's [Proventil 0.083% 2.5 mg IH Q3HRT PRN #30 nebu 09/02/19 Unknown Rx NEBS] Acetaminophen [Acetaminophen TAB] 650 mg PO Q4H PRN tablet 09/13/19 Unknown Rx Allergies Allergy/AdvReac Type Severity Reaction Status Date / Time No Known Allergies Allergy Verified 03/12/19 12:23 ED Review of Systems ROS: Stated complaint: IRREGULAR HEART BEAT Other details as noted in HPI Comment: All other systems reviewed and negative Constitutional: denies: chills, fever Respiratory: denies: cough, shortness of breath Cardiovascular: denies: chest pain, palpitations Gastrointestinal: denies: abdominal pain, nausea, vomiting ED Past Medical Hx - Past Medical History Previous Medical History?: Yes Hx Hypertension: Yes Hx Heart Attack/AMI: No Hx Congestive Heart Failure: Yes Hx Diabetes: Yes Hx Deep Vein Thrombosis: No Hx Pulmonary Embolism: No Hx Liver Disease: Yes Hx Renal Disease: Yes (dialysis) Hx Asthma: No Hx COPD: Yes Hx Tuberculosis: No Hx HIV: No Additional medical history: PVD, and cellulitis - Surgical History Hx Coronary Stent: No Hx Pacemaker: No Hx Internal Defibrillator: No Additional Surgical History: Perm cath, - Social History Smoking Status: Unknown if ever smoked Substance Use Type: None - Medications Home Medications: Home Medications Medication Instructions Recorded Confirmed Last Taken Type Ergocalciferol(Vitamin D2)(Nf) 800 unit PO DAILY 07/06/19 09/23/19 1 Day Ago History [Vitamin D (Nf)] ~08/12/19 cloNIDine [Catapres] 0.2 mg PO BID 07/06/19 09/23/19 08/28/19 22:00 History Pantoprazole [Protonix TAB] 40 mg PO QDAY #30 tablet 07/14/19 09/23/19 08/13/19 Rx Insulin NPH/Regular [NovoLIN 70/30] 5 unit SUB-Q BIDDIAB units 08/13/19 09/23/19 Unknown Rx Insulin NPH/Regular [NovoLIN 70/30] 5 unit SUB-Q BIDDIAB #10 ml 08/13/19 09/23/19 Unknown Rx Lactulose [Cephulac] 20 gm PO BID oral.liqd 08/13/19 09/23/19 Unknown Rx ALBUTEROL NEB's [Proventil 0.083% 2.5 mg IH Q3HRT PRN #30 nebu 09/02/19 09/23/19 Unknown Rx NEBS] Acetaminophen [Acetaminophen TAB] 650 mg PO Q4H PRN tablet 09/13/19 09/23/19 Unknown Rx ED Physical Exam - General Limitations: No Limitations General appearance: alert, in no apparent distress, obese - Head Head exam: Present: atraumatic, normocephalic - Eye Eye exam: Present: normal appearance - ENT ENT exam: Present: mucous membranes moist - Neck Neck exam: Present: normal inspection - Respiratory Respiratory exam: Present: normal lung sounds bilaterally. Absent: respiratory distress - Cardiovascular Cardiovascular Exam: Present: tachycardia, irregular rhythm - GI/Abdominal GI/Abdominal exam: Present: soft. Absent: distended, tenderness - Extremities Exam Extremities exam: Present: other (chronic open wounds to bilateral lower legs p ink tissue; left anterior foot open wound with purulent discharge present) - Neurological Exam Neurological exam: Present: alert, oriented X3 - Psychiatric Psychiatric exam: Present: normal affect, normal mood - Skin Skin exam: Present: warm ED Course Vital Signs 09/23/19 09/23/19 09/23/19 15:09 15:16 15:30 Temperature 97.9 F Pulse Rate 129 H 127 H Respiratory 16 12 Rate Blood Pressure 120/69 120/69 Blood Pressure [Right] O2 Sat by Pulse 100 100 100 Oximetry 09/23/19 09/23/19 09/23/19 16:00 16:30 17:16 Temperature Pulse Rate 109 H 97 H 133 H Respiratory 12 13 15 Rate Blood Pressure 92/50 101/76 125/98 Blood Pressure [Right] O2 Sat by Pulse 100 100 98 Oximetry 09/23/19 09/23/19 09/23/19 17:30 17:37 17:40 Temperature Pulse Rate 133 H 119 H 134 H Respiratory 15 16 17 Rate Blood Pressure 125/98 155/95 Blood Pressure 155/95 [Right] O2 Sat by Pulse 100 100 100 Oximetry 09/23/19 09/23/19 09/23/19 17:49 17:50 18:00 Temperature Pulse Rate 126 H 113 H 106 H Respiratory 21 15 Rate Blood Pressure 157/89 157/89 141/59 Blood Pressure [Right] O2 Sat by Pulse 100 Oximetry 09/23/19 09/23/19 09/23/19 18:10 18:15 18:16 Temperature Pulse Rate 106 H 107 H 129 H Respiratory Rate Blood Pressure 136/88 155/84 137/83 Blood Pressure [Right] O2 Sat by Pulse 100 98 Oximetry 09/23/19 09/23/19 09/23/19 18:20 18:26 18:30 Temperature Pulse Rate 112 H 127 H Respiratory 18 14 Rate Blood Pressure 137/83 143/90 143/90 Blood Pressure [Right] O2 Sat by Pulse 100 99 100 Oximetry 09/23/19 09/23/19 09/23/19 18:36 18:40 19:06 Temperature Pulse Rate 104 H 128 H Respiratory 15 13 17 Rate Blood Pressure 141/84 141/84 154/83 Blood Pressure [Right] O2 Sat by Pulse 98 100 96 Oximetry 09/23/19 09/23/19 09/23/19 19:16 19:20 19:36 Temperature Pulse Rate 134 H 106 H 105 H Respiratory 12 16 16 Rate Blood Pressure 156/84 156/84 139/92 Blood Pressure [Right] O2 Sat by Pulse 100 99 100 Oximetry 09/23/19 09/23/19 09/23/19 19:40 19:45 20:00 Temperature Pulse Rate 100 H 119 H 107 H Respiratory 16 13 31 H Rate Blood Pressure 108/78 142/80 154/80 Blood Pressure [Right] O2 Sat by Pulse 100 98 100 Oximetry 09/23/19 09/23/19 09/23/19 20:06 20:10 20:16 Temperature Pulse Rate 125 H 106 H 129 H Respiratory 44 H 53 H 18 Rate Blood Pressure 167/92 156/93 156/93 Blood Pressure [Right] O2 Sat by Pulse 100 98 100 Oximetry 09/23/19 09/23/19 09/23/19 20:20 20:26 20:30 Temperature Pulse Rate 125 H 102 H 126 H Respiratory 21 22 18 Rate Blood Pressure 156/93 184/92 184/92 Blood Pressure [Right] O2 Sat by Pulse 100 98 100 Oximetry 09/23/19 09/23/19 09/23/19 20:36 21:20 21:26 Temperature Pulse Rate 133 H 132 H 114 H Respiratory 13 21 17 Rate Blood Pressure 186/84 138/84 134/73 Blood Pressure [Right] O2 Sat by Pulse 99 99 98 Oximetry 09/23/19 21:33 Temperature Pulse Rate 125 H Respiratory Rate Blood Pressure 134/73 Blood Pressure [Right] O2 Sat by Pulse Oximetry ED Medical Decision Making - Lab Data Result diagrams: 09/23/19 17:13 09/23/19 17:13 - EKG Data -: EKG Interpreted by Ma EKG shows normal: ST-T waves Rate: tachycardia - EKG Data Interpretation: other (irregular rhythm, low voltage) - Radiology Data Radiology results: report reviewed, image reviewed - Medical Decision Making - appears to be Afib w/ RVR as rhythm is quite irregylar - diltiazem was given which seemed to slow the rate down from the 130s to the 100s-110s - no ST changes on EKG - pt has chronically elevated troponin, 0.2 is her baseline, likely due to combination of her CHF and renal disease - pt has no chest pain or SOB currently; she is comfortable, eating chips on stretcher - WBCs, and lactic acid are normal, pt afebrile; she is not septic, however cefepime given for what appears to be infected wounds - will admit to hospitalist for further management - Differential Diagnosis Afib, SVT, Aflutter, ACS Critical Care Time: Yes Critical care time in (mins) excluding proc time.: 35 Critical care attestation.: If time is entered above; I have spent that time in minutes in the direct care of this critically ill patient, excluding procedure time. Critical Care Time: 35 min ED Disposition Clinical Impression: Atrial fibrillation with RVR, Cellulitis, Elevated troponin Disposition: -09 OP ADMIT IP TO THIS HOSP Is pt being admited?: Yes Condition: Stable Time of Disposition: 20:27
[2019-09-23] MEDS ORDERED: ASPIRIN 325 MG TAB PO ONE (20:28)
[2019-09-23] MEDS ORDERED: ALBUTEROL 2.5 MG/3 ML NEBU IH PRN (20:39)
[2019-09-23] MEDS ORDERED: ASPIRIN 325 MG TAB ONE (21:07)
[2019-09-23] MEDS ORDERED: CEFEPIME/NS 1 GM/100 ML 1 GM/100 ML BAG IV SCH (22:00)
--- NOTE | 2019-09-23 22:07 | History and Physical Report ---
History of Present Illness Date of examination: 09/23/19 Date of admission: 09/23/19 19:57 Chief complaint: Irregular heartbeat, elevated heart rate History of present illness: 44-year-old morbidly obese -[place] female who isn't [facility] ED after being seen by Dr. Brink (general surgery) clinic for placement of new vas cath site and found to be tachypneic with heart rate in 130s. Patient has history of ESRD on HD, hypertension, diabetes, CHF, chronic lower extremity wounds, liver disease, PVD, and cellulitis. She denies history of atrial fibrillation. She denies chest pain, shortness of breath, palpitations, or dizziness. Past History Past Medical History: COPD, diabetes, heart failure, hypertension, PVD, other (morbid obesity, chronic lower extremity wounds, liver disease, cellulitis (foot on found to have Escherichia coli growth)) Past Surgical History: , Other (left chest permacath) Social history: lives with family (mother) Family history: no significant family history Medications and Allergies Allergies Allergy/AdvReac Type Severity Reaction Status Date / Time No Known Allergies Allergy Verified 03/12/19 12:23 Home Medications Medication Instructions Recorded Confirmed Last Taken Type Ergocalciferol(Vitamin D2)(Nf) 800 unit PO DAILY 07/06/19 09/23/19 1 Day Ago History [Vitamin D (Nf)] ~08/12/19 cloNIDine [Catapres] 0.2 mg PO BID 07/06/19 09/23/19 08/28/19 22:00 History Pantoprazole [Protonix TAB] 40 mg PO QDAY #30 tablet 07/14/19 09/23/19 08/13/19 Rx Insulin NPH/Regular [NovoLIN 70/30] 5 unit SUB-Q BIDDIAB units 08/13/19 09/23/19 Unknown Rx Insulin NPH/Regular [NovoLIN 70/30] 5 unit SUB-Q BIDDIAB #10 ml 08/13/19 09/23/19 Unknown Rx Lactulose [Cephulac] 20 gm PO BID oral.liqd 08/13/19 09/23/19 Unknown Rx ALBUTEROL NEB's [Proventil 0.083% 2.5 mg IH Q3HRT PRN #30 nebu 09/02/19 09/23/19 Unknown Rx NEBS] Acetaminophen [Acetaminophen TAB] 650 mg PO Q4H PRN tablet 09/13/19 09/23/19 Unknown Rx Active Meds: Active Medications Acetaminophen (Tylenol) 650 mg PO Q4H PRN PRN Reason: Pain MILD(1-3)/Fever >100.5/[place] Albuterol (Proventil) 2.5 mg IH Q4HRT PRN PRN Reason: Shortness Of Breath Cholecalciferol (Vitamin D3) 800 unit PO QDAY WALT Clonidine HCl (Catapres) 0.2 mg PO BID WALT Dextrose (D50w (25gm) Syringe) 50 ml IV Q30MIN PRN; Protocol PRN Reason: Hypoglycemia Diphenhydramine HCl (Benadryl) 25 mg IV Q6H PRN PRN Reason: Itching Heparin Sodium (Porcine) (Heparin) 5,000 unit SUB-Q Q12HR WALT Cefepime HCl (Cefepime/Ns 1 Gm/100 Ml) 1 gm in 100 mls @ 200 mls/hr IV Q24H WALT; Protocol Insulin Human Lispro (Humalog) 0 unit SUB-Q ACHS WALT; Protocol Lactulose (Cephulac) 20 gm PO BID WALT Nitroglycerin (Nitrostat) 0.4 mg SL .Q5MIN PRN PRN Reason: Chest Pain Ondansetron HCl (Zofran) 4 mg IV Q6H PRN PRN Reason: Nausea And Vomiting Oxycodone/Acetaminophen (Percocet 5/325) 1 tab PO Q6H PRN PRN Reason: Pain, Moderate (4-6) Pantoprazole Sodium (Protonix) 40 mg PO QDAY WALT Sodium Chloride (Sodium Chloride Flush Syringe 10 Ml) 10 ml IV BID WALT Sodium Chloride (Sodium Chloride Flush Syringe 10 Ml) 10 ml IV PRN PRN PRN Reason: LINE FLUSH Review of Systems All systems: negative Musculoskeletal: myalgias, other (chronic bilateral lower extremity pain) Exam - Physical Exam Narrative exam: Physical exam General appearance: Present: No acute distress, alert and oriented 3, morbidly obese, chronically ill-appearing, adult female - EENT Eyes: Present: PERRL, EOM intact ENT: hearing intact, normal dentition - Neck Neck: Present: supple, normal ROM - Respiratory Respiratory effort: Non-labored Respiratory: Diminished bases - Cardiovascular Heart rate: 130 (bpm) Rhythm: Atrial fibrillation, irregular Heart Sounds: Present: S1 & S2. Absent: rub, click - Extremities Extremities: no ischemia, pulses intact, - Peripheral Assessment Peripheral Pulses: within normal limits - Abdominal General gastrointestinal: soft, non-tender, normal bowel sounds - Integumentary Integumentary: Present: warm, dry, bilateral lower extremity wounds, left foot wound, - Musculoskeletal Musculoskeletal: Limited mobility, bed bound for the past month -Neurological Neurological: CN II-XII intact - Psychiatric Psychiatric: Appropriate for situation ,cooperative - Constitutional Vitals: Temp Pulse Resp BP Pulse Ox 97.9 F 125 H 17 134/73 98 09/23/19 15:09 09/23/19 21:33 09/23/19 21:26 09/23/19 21:33 09/23/19 21:26 Results - Labs CBC & Chem 7: 09/23/19 17:13 09/23/19 17:13 Labs: Laboratory Last Values WBC 11.3 K/mm3 (4.5-11.0) H 09/23/19 17:13 RBC 3.31 M/mm3 (3.65-5.03) L 09/23/19 17:13 Hgb 9.2 gm/dl (10.1-14.3) L 09/23/19 17:13 Hct 30.3 % (30.3-42.9) 09/23/19 17:13 MCV 92 fl (79-97) 09/23/19 17:13 MCH 28 pg (28-32) 09/23/19 17:13 MCHC 30 % (30-34) 09/23/19 17:13 RDW 24.7 % (13.2-15.2) H 09/23/19 17:13 Plt Count 193 K/mm3 (140-440) 09/23/19 17:13 Add Manual Diff Complete 09/23/19 17:13 Total Counted 100 09/23/19 17:13 Seg Neuts % (Manual) 63.0 % (40.0-70.0) 09/23/19 17:13 Band Neutrophils % 0 % 09/23/19 17:13 Lymphocytes % (Manual) 19.0 % (13.4-35.0) 09/23/19 17:13 Reactive Lymphs % (Man) 0 % 09/23/19 17:13 Monocytes % (Manual) 8.0 % (0.0-7.3) H 09/23/19 17:13 Eosinophils % (Manual) 6.0 % (0.0-4.3) H 09/23/19 17:13 Basophils % (Manual) 3.0 % (0.0-1.8) H 09/23/19 17:13 Metamyelocytes % 1.0 % 09/23/19 17:13 Myelocytes % 0 % 09/23/19 17:13 Promyelocytes % 0 % 09/23/19 17:13 Blast Cells % 0 % 09/23/19 17:13 Nucleated RBC % 3.0 % (0.0-0.9) H 09/23/19 17:13 Seg Neutrophils # Man 7.1 K/mm3 (1.8-7.7) 09/23/19 17:13 Band Neutrophils # 0.0 K/mm3 09/23/19 17:13 Lymphocytes # (Manual) 2.1 K/mm3 (1.2-5.4) 09/23/19 17:13 Abs React Lymphs (Man) 0.0 K/mm3 09/23/19 17:13 Monocytes # (Manual) 0.9 K/mm3 (0.0-0.8) H 09/23/19 17:13 Eosinophils # (Manual) 0.7 K/mm3 (0.0-0.4) H 09/23/19 17:13 Basophils # (Manual) 0.3 K/mm3 (0.0-0.1) H 09/23/19 17:13 Metamyelocytes # 0.1 K/mm3 09/23/19 17:13 Myelocytes # 0.0 K/mm3 09/23/19 17:13 Promyelocytes # 0.0 K/mm3 09/23/19 17:13 Blast Cells # 0.0 K/mm3 09/23/19 17:13 WBC Morphology Not Reportable 09/23/19 17:13 Hypersegmented Neuts Not Reportable 09/23/19 17:13 Hyposegmented Neuts Not Reportable 09/23/19 17:13 Hypogranular Neuts Not Reportable 09/23/19 17:13 Smudge Cells Not Reportable 09/23/19 17:13 Toxic Granulation Not Reportable 09/23/19 17:13 Toxic Vacuolation Not Reportable 09/23/19 17:13 Dohle Bodies Not Reportable 09/23/19 17:13 Pelger-Huet Anomaly Not Reportable 09/23/19 17:13 Sara Rods Not Reportable 09/23/19 17:13 Platelet Estimate Consistent w auto 09/23/19 17:13 Clumped Platelets Not Reportable 09/23/19 17:13 Plt Clumps, EDTA Not Reportable 09/23/19 17:13 Large Platelets Not Reportable 09/23/19 17:13 Giant Platelets Not Reportable 09/23/19 17:13 Platelet Satelliting Not Reportable 09/23/19 17:13 Plt Morphology Comment Not Reportable 09/23/19 17:13 RBC Morphology Not Reportable 09/23/19 17:13 Dimorphic RBCs Not Reportable 09/23/19 17:13 Polychromasia Few 09/23/19 17:13 Hypochromasia Not Reportable 09/23/19 17:13 Poikilocytosis Not Reportable 09/23/19 17:13 Anisocytosis 1+ 09/23/19 17:13 Microcytosis Few 09/23/19 17:13 Macrocytosis 1+ 09/23/19 17:13 Spherocytes Not Reportable 09/23/19 17:13 Pappenheimer Bodies Not Reportable 09/23/19 17:13 Sickle Cells Not Reportable 09/23/19 17:13 Target Cells 1+ 09/23/19 17:13 Tear Drop Cells Not Reportable 09/23/19 17:13 Ovalocytes Not Reportable 09/23/19 17:13 Helmet Cells Not Reportable 09/23/19 17:13 [place] Bodies Not Reportable 09/23/19 17:13 [place] Rings Not Reportable 09/23/19 17:13 [place] Cells Not Reportable 09/23/19 17:13 Bite Cells Not Reportable 09/23/19 17:13 Crenated Cell Not Reportable 09/23/19 17:13 Elliptocytes Not Reportable 09/23/19 17:13 Acanthocytes (Spur) Not Reportable 09/23/19 17:13 Rouleaux Not Reportable 09/23/19 17:13 Hemoglobin C Crystals Not Reportable 09/23/19 17:13 Schistocytes Not Reportable 09/23/19 17:13 Malaria parasites Not Reportable 09/23/19 17:13 Adarsh Bodies Not Reportable 09/23/19 17:13 Hem Pathologist Commnt No 09/23/19 17:13 PT 17.2 Sec. (12.2-14.9) H 09/23/19 17:13 INR 1.42 (0.87-1.13) H 09/23/19 17:13 APTT 30.2 Sec. (24.2-36.6) 09/23/19 16:49 VBG pH 7.480 (7.320-7.420) H 09/23/19 17:13 Sodium 138 mmol/L (137-145) 09/23/19 17:13 Potassium 3.5 mmol/L (3.6-5.0) L 09/23/19 17:13 Chloride 102.9 mmol/L (98-107) 09/23/19 17:13 Carbon Dioxide 26 mmol/L (22-30) 09/23/19 17:13 Anion Gap 13 mmol/L 09/23/19 17:13 BUN 14 mg/dL (7-17) 09/23/19 17:13 Creatinine 3.4 mg/dL (0.7-1.2) H 09/23/19 17:13 Estimated GFR 18 ml/min 09/23/19 17:13 BUN/Creatinine Ratio 4 % 09/23/19 17:13 Glucose 95 mg/dL (65-100) 09/23/19 17:13 Lactic Acid 1.50 mmol/L (0.7-2.0) 09/23/19 17:13 Calcium 8.8 mg/dL (8.4-10.2) 09/23/19 17:13 Total Bilirubin 1.10 mg/dL (0.1-1.2) 09/23/19 17:13 AST 20 units/L (5-40) 09/23/19 17:13 ALT 13 units/L (7-56) 09/23/19 17:13 Alkaline Phosphatase 130 units/L (35-129) H 09/23/19 17:13 Troponin T 0.195 ng/mL (0.00-0.029) H* 09/23/19 16:49 Total Protein 7.4 g/dL (6.3-8.2) 09/23/19 17:13 Albumin 2.2 g/dL (3.9-5) L 09/23/19 17:13 Albumin/Globulin Ratio 0.4 % 09/23/19 17:13 Triglycerides 98 mg/dL (2-149) 09/23/19 16:49 Cholesterol 107 mg/dL (50-199) 09/23/19 16:49 LDL Cholesterol Direct 57 mg/dL (50-130) 09/23/19 16:49 HDL Cholesterol 36 mg/dL (40-59) L 09/23/19 16:49 Cholesterol/HDL Ratio 2.97 % 09/23/19 16:49 - Imaging and Cardiology Imaging and Cardiology: CXR: FINDINGS: SUPPORT DEVICES: Stable left internal jugular vein PermCath. HEART / MEDIASTINUM: Stable. LUNGS / PLEURA: No significant pulmonary or pleural abnormality. No pneumothorax. ADDITIONAL FINDINGS: No significant additional findings. IMPRESSION: 1. No acute abnormality of the chest. 2. Stable cardiomegaly. Assessment and Plan Assessment and plan: 44-year-old morbidly obese -[place] female who isn't [facility] ED after being seen by Dr. Brink (general surgery) clinic for placement of new vas cath site and found to be tachypneic with heart rate in 130s. At the time of my examination patient is laying down in stretcher, and her mother is present at the bedside. Pt states that she feels fine other than her chronic foot pain, which she rates 4/10. A.fibrillation with RVR -New Onest -Seen on EKG -HR in 130's -Received IV Cardizem -Continuous telemetry monitoring -Cardiology consulted ESRD on HD -M/W/F -Last dialyzed 09/22/19 -Avoid nephrotoxic agents -Renal dose all meds -Nephrology consulted Hx of cellulitis -Loot foot wound + E.Coli growth, treated with IV Ceftazidime which ended 09/23/19 -WBC 11.3 on admission -Left foot wound bed has sloughing -Left foot Wound culture pending -Blood cultures pending -Started empirically on Cefepime 1gm q8hr -BLE wounds show + wound healing with clean wound bed and granulation tissue -Follow outpatient wound care clinic -Wound Care consult pending -ID Consult pending Elevated Troponin -Chronically elevated troponin, -Baseline 0.2 -Likely secondary to CHF and ESRD -EKG unrevealing for ischemic changes DM -POC BG monitoring -SSI coverage prn HTN -Monitor BP -Resume home hypertensive meds -IV hydralazine when necessary Morbid Obesity -BMI 51.2 -Diet and lifestyle modifications -May benefit from OP weight mgmt program when acute conditions have resolved DVT PPX -on Heparin Advance Directives: No VTE prophylaxis?: Chemical Plan of care discussed with patient/family: Yes
[2019-09-23] MEDS: cloNIDine 0.2 MG TAB PO SCH (22:38)
[2019-09-23] MEDS: oxyCODONE /ACETAMINOPHEN 5-325MG TAB PO PRN (22:39)
[2019-09-23] MEDS: HEPARIN 5,000 UNIT/1 ML VIAL SUB-Q SCH (22:40)
[2019-09-23] MEDS: LACTULOSE 20 GM/30 ML ORAL LIQD PO SCH (22:40)
[2019-09-23] MEDS: INSULIN LISPRO 100 UNIT/ML SUB-Q SCH (22:57)
[2019-09-24 08:19] LABS: Hematocrit 24.1 % (30.3-42.9); Hemoglobin 7.7 gm/dl (10.1-14.3); Mean Corpuscular HGB Conc 32 % (30-34); Mean Corpuscular Volume 91 fl (79-97); Red Blood Count 2.65 M/mm3 (3.65-5.03)
[2019-09-24 08:44] LABS: Red Cell Distribution Width 25.3 % (13.2-15.2)
[2019-09-24 09:18] LABS: Calcium 8.4 mg/dL (8.4-10.2)
[2019-09-24] MEDS: INSULIN LISPRO 100 UNIT/ML SUB-Q SCH ×4 (09:26→22:00)
[2019-09-24] MEDS: CHOLECALCIFEROL (VIT D3) 400 UNIT TAB PO SCH (09:29)
[2019-09-24] MEDS: PANTOPRAZOLE 40 MG TAB PO SCH (09:29)
[2019-09-24] MEDS: cloNIDine 0.2 MG TAB PO SCH ×2 (09:29→21:11)
[2019-09-24] MEDS: LACTULOSE 20 GM/30 ML ORAL LIQD PO SCH ×2 (09:30→21:11)
[2019-09-24] MEDS: HEPARIN 5,000 UNIT/1 ML VIAL SUB-Q SCH ×2 (09:31→21:11)
[2019-09-24] MEDS ORDERED: POTASSIUM CHLORIDE ER 20 MEQ TAB PO SCH (10:00)
[2019-09-24] MEDS ORDERED: ERGOCALCIFEROL 800 UNIT PO SCH (10:00)
[2019-09-24] MEDS ORDERED: CEFEPIME/NS 1 GM/100 ML 1 GM/100 ML BAG IV SCH (10:00)
[2019-09-24 11:10] LABS: Anisocytosis 1+; Basophils % (Manual) 0 % (0.0-1.8); Hypochromasia 1+; Macrocytosis 1+; Target Cells 1+; Total Cells Counted 100
[2019-09-24 11:11] LABS: Platelet Estimate Consistent w Auto; Poikilocytosis Few
--- NOTE | 2019-09-24 12:00 | Progress Note ---
Assessment and Plan Assessment and plan: New onset A.fibrillation with RVR -s/p IV Cardizem and metoprolol -Heart rate improved -Continuous telemetry monitoring -Cardiology consulted ESRD on HD on // -Nephrology consulted Hx of BLE cellulitis -Left foot wound was sloughing, wound culture pending -Blood cultures pending -Started empirically on Cefepime 1gm q8hr -BLE wounds show + wound healing with clean wound bed and granulation tissue -Wound Care nurse consulted -ID Consulted Vascath malfunction -Vascular surgery consulted Chronically elevated troponin -Likely secondary to CHF and ESRD, stable -EKG unrevealing for ischemic changes DM2 with neuropathy -stable -POC BG monitoring and SSI coverage prn -Started on gabapentin Hypokalemia -Resolved HTN -stable -cont clonidine -IV hydralazine when necessary Chronic diastolic heart failure LVEF of 50-55% -No acute exacerbation Morbid Obesity with BMI 51.2 -Diet and lifestyle modifications Deconditioning -PT consulted DVT prophylaxis with heparin Disposition: Patient would benefit from inpatient rehabilitation facility placement due to multiple hospital readmission. Discharge per clinical course History Interval history: Patient has no new complaints. She denied chest pain or shortness of breath. Hospitalist Physical - Constitutional Vitals: Temp Pulse Resp BP Pulse Ox 98.3 F 122 H 20 127/57 97 09/23/19 22:11 09/24/19 09:29 09/23/19 22:39 09/24/19 09:29 09/24/19 09:21 General appearance: Present: no acute distress, obese - EENT Eyes: Present: PERRL, EOM intact ENT: hearing intact, clear oral mucosa - Neck Neck: Present: supple - Respiratory Respiratory effort: normal Respiratory: bilateral: CTA - Cardiovascular Rhythm: irregularly irregular Heart Sounds: Present: S1 & S2 - Extremities Extremity abnormal: edema, ulceration (in BLE) - Abdominal General gastrointestinal: soft, non-tender, normal bowel sounds - Integumentary Integumentary: Present: erythema (in BLE) - Psychiatric Psychiatric: cooperative - Neurologic Neurologic: moves all extremities Results - Labs CBC & Chem 7: 09/24/19 07:07 09/24/19 07:07 Labs: Laboratory Last Values WBC 6.9 K/mm3 (4.5-11.0) 09/24/19 07:07 RBC 2.65 M/mm3 (3.65-5.03) L 09/24/19 07:07 Hgb 7.7 gm/dl (10.1-14.3) L 09/24/19 07:07 Hct 24.1 % (30.3-42.9) L D 09/24/19 07:07 MCV 91 fl (79-97) 09/24/19 07:07 MCH 29 pg (28-32) 09/24/19 07:07 MCHC 32 % (30-34) 09/24/19 07:07 RDW 25.3 % (13.2-15.2) H 09/24/19 07:07 Plt Count 193 K/mm3 (140-440) 09/23/19 17:13 Add Manual Diff Complete 09/24/19 07:07 Total Counted 100 09/24/19 07:07 Seg Neuts % (Manual) 66.0 % (40.0-70.0) 09/24/19 07:07 Band Neutrophils % 0 % 09/24/19 07:07 Lymphocytes % (Manual) 14.0 % (13.4-35.0) 09/24/19 07:07 Reactive Lymphs % (Man) 1.0 % 09/24/19 07:07 Monocytes % (Manual) 13.0 % (0.0-7.3) H 09/24/19 07:07 Eosinophils % (Manual) 6.0 % (0.0-4.3) H 09/24/19 07:07 Basophils % (Manual) 0 % (0.0-1.8) 09/24/19 07:07 Metamyelocytes % 0 % 09/24/19 07:07 Myelocytes % 0 % 09/24/19 07:07 Promyelocytes % 0 % 09/24/19 07:07 Blast Cells % 0 % 09/24/19 07:07 Nucleated RBC % 1.0 % (0.0-0.9) H 09/24/19 07:07 Seg Neutrophils # Man 4.6 K/mm3 (1.8-7.7) 09/24/19 07:07 Band Neutrophils # 0.0 K/mm3 09/24/19 07:07 Lymphocytes # (Manual) 1.0 K/mm3 (1.2-5.4) L 09/24/19 07:07 Abs React Lymphs (Man) 0.1 K/mm3 09/24/19 07:07 Monocytes # (Manual) 0.9 K/mm3 (0.0-0.8) H 09/24/19 07:07 Eosinophils # (Manual) 0.4 K/mm3 (0.0-0.4) 09/24/19 07:07 Basophils # (Manual) 0.0 K/mm3 (0.0-0.1) 09/24/19 07:07 Metamyelocytes # 0.0 K/mm3 09/24/19 07:07 Myelocytes # 0.0 K/mm3 09/24/19 07:07 Promyelocytes # 0.0 K/mm3 09/24/19 07:07 Blast Cells # 0.0 K/mm3 09/24/19 07:07 WBC Morphology Not Reportable 09/24/19 07:07 Hypersegmented Neuts Not Reportable 09/24/19 07:07 Hyposegmented Neuts Not Reportable 09/24/19 07:07 Hypogranular Neuts Not Reportable 09/24/19 07:07 Smudge Cells Not Reportable 09/24/19 07:07 Toxic Granulation Not Reportable 09/24/19 07:07 Toxic Vacuolation Not Reportable 09/24/19 07:07 Dohle Bodies Not Reportable 09/24/19 07:07 Pelger-Huet Anomaly Not Reportable 09/24/19 07:07 Sara Rods Not Reportable 09/24/19 07:07 Platelet Estimate Consistent w auto 09/24/19 07:07 Clumped Platelets Not Reportable 09/24/19 07:07 Plt Clumps, EDTA Not Reportable 09/24/19 07:07 Large Platelets Not Reportable 09/24/19 07:07 Giant Platelets Not Reportable 09/24/19 07:07 Platelet Satelliting Not Reportable 09/24/19 07:07 Plt Morphology Comment Not Reportable 09/24/19 07:07 RBC Morphology Not Reportable 09/24/19 07:07 Dimorphic RBCs Not Reportable 09/24/19 07:07 Polychromasia Few 09/24/19 07:07 Hypochromasia 1+ 09/24/19 07:07 Poikilocytosis Few 09/24/19 07:07 Anisocytosis 1+ 09/24/19 07:07 Microcytosis Few 09/24/19 07:07 Macrocytosis 1+ 09/24/19 07:07 Spherocytes Not Reportable 09/24/19 07:07 Pappenheimer Bodies Not Reportable 09/24/19 07:07 Sickle Cells Not Reportable 09/24/19 07:07 Target Cells 1+ 09/24/19 07:07 Tear Drop Cells Not Reportable 09/24/19 07:07 Ovalocytes Not Reportable 09/24/19 07:07 Helmet Cells Not Reportable 09/24/19 07:07 Chi-Greasy Bodies Not Reportable 09/24/19 07:07 [place] Rings Not Reportable 09/24/19 07:07 [place] Cells Not Reportable 09/24/19 07:07 Bite Cells Not Reportable 09/24/19 07:07 Crenated Cell Not Reportable 09/24/19 07:07 Elliptocytes Not Reportable 09/24/19 07:07 Acanthocytes (Spur) Not Reportable 09/24/19 07:07 Rouleaux Not Reportable 09/24/19 07:07 Hemoglobin C Crystals Not Reportable 09/24/19 07:07 Schistocytes Not Reportable 09/24/19 07:07 Malaria parasites Not Reportable 09/24/19 07:07 Adarsh Bodies Not Reportable 09/24/19 07:07 Hem Pathologist Commnt No 09/24/19 07:07 PT 17.2 Sec. (12.2-14.9) H 09/23/19 17:13 INR 1.42 (0.87-1.13) H 09/23/19 17:13 APTT 30.2 Sec. (24.2-36.6) 09/23/19 16:49 VBG pH 7.480 (7.320-7.420) H 09/23/19 17:13 Sodium 137 mmol/L (137-145) 09/24/19 07:07 Potassium 3.8 mmol/L (3.6-5.0) 09/24/19 07:07 Chloride 100.2 mmol/L (98-107) 09/24/19 07:07 Carbon Dioxide 21 mmol/L (22-30) L 09/24/19 07:07 Anion Gap 20 mmol/L 09/24/19 07:07 BUN 17 mg/dL (7-17) 09/24/19 07:07 Creatinine 3.7 mg/dL (0.7-1.2) H 09/24/19 07:07 Estimated GFR 16 ml/min 09/24/19 07:07 BUN/Creatinine Ratio 5 % 09/24/19 07:07 Glucose 165 mg/dL (65-100) H 09/24/19 07:07 POC Glucose 172 (70-105) H 09/24/19 08:45 Lactic Acid 1.50 mmol/L (0.7-2.0) 09/23/19 17:13 Calcium 8.4 mg/dL (8.4-10.2) 09/24/19 07:07 Magnesium 1.90 mg/dL (1.7-2.3) 09/24/19 07:07 Total Bilirubin 1.10 mg/dL (0.1-1.2) 09/23/19 17:13 AST 20 units/L (5-40) 09/23/19 17:13 ALT 13 units/L (7-56) 09/23/19 17:13 Alkaline Phosphatase 130 units/L (35-129) H 09/23/19 17:13 Troponin T 0.195 ng/mL (0.00-0.029) H* 09/23/19 16:49 Total Protein 7.4 g/dL (6.3-8.2) 09/23/19 17:13 Albumin 2.2 g/dL (3.9-5) L 09/23/19 17:13 Albumin/Globulin Ratio 0.4 % 09/23/19 17:13 Triglycerides 98 mg/dL (2-149) 09/23/19 16:49 Cholesterol 107 mg/dL (50-199) 09/23/19 16:49 LDL Cholesterol Direct 57 mg/dL (50-130) 09/23/19 16:49 HDL Cholesterol 36 mg/dL (40-59) L 09/23/19 16:49 Cholesterol/HDL Ratio 2.97 % 09/23/19 16:49 TSH 3.040 mlU/mL (0.270-4.200) 09/24/19 10:36 Active Medications - Current Medications Current Medications: Generic Name Dose Route Start Last Admin Trade Name Freq PRN Reason Stop Dose Admin Acetaminophen 650 mg 12/05/19 19:57 Tylenol PO Q4H PRN Pain MILD(1-3)/Fever >100.5/[place] Albuterol 2.5 mg 09/23/19 20:39 Proventil IH Q4HRT PRN Shortness Of Breath Cholecalciferol 800 unit 09/24/19 10:00 09/24/19 09:29 Vitamin D3 PO 800 unit QDAY WALT Administration Clonidine HCl 0.2 mg 09/23/19 22:00 09/24/19 09:29 Catapres PO 0.2 mg BID WALT Administration Dextrose 50 ml 09/23/19 19:57 D50w (25gm) Syringe IV Q30MIN PRN Hypoglycemia Protocol Diphenhydramine HCl 25 mg 09/23/19 20:06 Benadryl IV Q6H PRN Itching Heparin Sodium (Porcine) 5,000 unit 09/23/19 22:00 09/24/19 09:31 Heparin SUB-Q 5,000 unit Q12HR WALT Administration Cefepime HCl 1 gm in 100 mls @ 200 mls/hr 09/24/19 10:00 09/24/19 09:31 Cefepime/Ns 1 Gm/100 Ml IV 200 mls/hr Q24H WALT Administration Protocol Insulin Human Lispro 0 unit 09/23/19 22:00 09/24/19 09:26 Humalog SUB-Q 2 unit ACHS WALT Administration Protocol Lactulose 20 gm 09/23/19 22:00 09/24/19 09:30 Cephulac PO 20 gm BID WALT Administration Nitroglycerin 0.4 mg 09/23/19 20:03 Nitrostat SL .Q5MIN PRN Chest Pain Ondansetron HCl 4 mg 09/23/19 19:57 Zofran IV Q6H PRN Nausea And Vomiting Oxycodone/Acetaminophen 1 tab 09/23/19 19:57 09/23/19 22:39 Percocet 5/325 PO 1 tab Q6H PRN Administration Pain, Moderate (4-6) Pantoprazole Sodium 40 mg 09/24/19 10:00 09/24/19 09:29 Protonix PO 40 mg QDAY WALT Administration Potassium Chloride 40 meq 09/24/19 10:00 09/24/19 09:30 K-Dur PO 09/25/19 10:01 40 meq QDAY WALT Administration Sodium Chloride 10 ml 09/23/19 22:00 09/24/19 09:31 Sodium Chloride Flush Syringe 10 Ml IV 10 ml BID WALT Administration Sodium Chloride 10 ml 09/23/19 19:57 Sodium Chloride Flush Syringe 10 Ml IV PRN PRN LINE FLUSH
[2019-09-24 12:03] LABS: Platelet Count 80 K/mm3 (140-440)
[2019-09-24] MEDS: GABAPENTIN 100 MG CAP PO SCH ×2 (13:27→21:11)
--- NOTE | 2019-09-24 13:34 | Consultation ---
History of Present Illness Consult date: 09/24/19 Requesting physician: ABNER NOLAN Consult reason: congestive heart failure, elevated troponin, tachycardia History of present illness: The pt is a 44 YO female with a past medical history of ESRD on HD, HTN, HFpEF, mod to severe LVH, DM, COPD, BLE cellulitis, morbid obesity, anemia, medical noncompliance. She has been seen by our practice on prior hospitalization. She presented for evaluation of tachycardia which was noted in Dr. Brink's office yesterday (she was in Dr. Brink's office for vascath exchange). She was referred to ED for further eval/management of tachycardia. Per ED physician documentation and hospitalist H&P, pt was believed to be in AFib upon arrival to ED. However, review of telemetry and ECG here shows sinus tachycardia, no atrial fibrillation noted. Pt denies any complaints. Echo done 06/2019 showed EF 50-55%, mod LVH, septal flattening of IV septum c/w RV volume overload, RV systolic function mod reduced, catheter in RA, mod TR, RVSP 28mmHg. Past History Past Medical History: COPD, diabetes, heart failure, hypertension, PVD, other (morbid obesity, chronic lower extremity wounds, liver disease, cellulitis (foot on found to have Escherichia coli growth)) Past Surgical History: , Other (left chest permacath) Social history: lives with family (mother) Family history: no significant family history Medications and Allergies Allergies Allergy/AdvReac Type Severity Reaction Status Date / Time No Known Allergies Allergy Verified 03/12/19 12:23 Home Medications Medication Instructions Recorded Confirmed Last Taken Type Ergocalciferol(Vitamin D2)(Nf) 800 unit PO DAILY 07/06/19 09/23/19 1 Day Ago History [Vitamin D (Nf)] ~08/12/19 cloNIDine [Catapres] 0.2 mg PO BID 07/06/19 09/23/19 08/28/19 22:00 History Pantoprazole [Protonix TAB] 40 mg PO QDAY #30 tablet 07/14/19 09/23/19 08/13/19 Rx Insulin NPH/Regular [NovoLIN 70/30] 5 unit SUB-Q BIDDIAB units 08/13/19 09/23/19 Unknown Rx Insulin NPH/Regular [NovoLIN 70/30] 5 unit SUB-Q BIDDIAB #10 ml 08/13/19 09/23/19 Unknown Rx Lactulose [Cephulac] 20 gm PO BID oral.liqd 08/13/19 09/23/19 Unknown Rx ALBUTEROL NEB's [Proventil 0.083% 2.5 mg IH Q3HRT PRN #30 nebu 09/02/19 09/23/19 Unknown Rx NEBS] Acetaminophen [Acetaminophen TAB] 650 mg PO Q4H PRN tablet 09/13/19 09/23/19 Unknown Rx Active Meds: Active Medications Acetaminophen (Tylenol) 650 mg PO Q4H PRN PRN Reason: Pain MILD(1-3)/Fever >100.5/[place] Albuterol (Proventil) 2.5 mg IH Q4HRT PRN PRN Reason: Shortness Of Breath Cholecalciferol (Vitamin D3) 800 unit PO QDAY [facility] Last Admin: 09/24/19 09:29 Dose: 800 unit Documented by: Clonidine HCl (Catapres) 0.2 mg PO BID [facility] Last Admin: 09/24/19 09:29 Dose: 0.2 mg Documented by: Dextrose (D50w (25gm) Syringe) 50 ml IV Q30MIN PRN; Protocol PRN Reason: Hypoglycemia Diphenhydramine HCl (Benadryl) 25 mg IV Q6H PRN PRN Reason: Itching Gabapentin (Gabapentin) 100 mg PO Q8HR [facility] Last Admin: 09/24/19 13:27 Dose: 100 mg Documented by: Heparin Sodium (Porcine) (Heparin) 5,000 unit SUB-Q Q12HR [facility] Last Admin: 09/24/19 09:31 Dose: 5,000 unit Documented by: Cefepime HCl (Cefepime/Ns 1 Gm/100 Ml) 1 gm in 100 mls @ 200 mls/hr IV Q24H [facility]; Protocol Last Admin: 09/24/19 09:31 Dose: 200 mls/hr Documented by: Insulin Human Lispro (Humalog) 0 unit SUB-Q ACHS [facility]; Protocol Last Admin: 09/24/19 13:00 Dose: Not Given Documented by: Lactulose (Cephulac) 20 gm PO BID [facility] Last Admin: 09/24/19 09:30 Dose: 20 gm Documented by: Nitroglycerin (Nitrostat) 0.4 mg SL .Q5MIN PRN PRN Reason: Chest Pain Ondansetron HCl (Zofran) 4 mg IV Q6H PRN PRN Reason: Nausea And Vomiting Oxycodone/Acetaminophen (Percocet 5/325) 1 tab PO Q6H PRN PRN Reason: Pain, Moderate (4-6) Last Admin: 09/23/19 22:39 Dose: 1 tab Documented by: Pantoprazole Sodium (Protonix) 40 mg PO QDAY [facility] Last Admin: 09/24/19 09:29 Dose: 40 mg Documented by: Sodium Chloride (Sodium Chloride Flush Syringe 10 Ml) 10 ml IV BID [facility] Last Admin: 09/24/19 09:31 Dose: 10 ml Documented by: Sodium Chloride (Sodium Chloride Flush Syringe 10 Ml) 10 ml IV PRN PRN PRN Reason: LINE FLUSH Review of Systems All systems: negative (no current complaints) Physical Examination Vital Signs Temp Pulse Resp BP Pulse Ox 97.9 F 129 H 16 120/69 100 09/23/19 15:09 09/23/19 15:09 09/23/19 15:09 09/23/19 15:09 09/23/19 15:09 General appearance: no acute distress HEENT: Positive: PERRL, Normocephaly, Mucus Membranes Moist Neck: Positive: neck supple, trachea midline Cardiac: Positive: Regular Rhythm, S1/S2 Lungs: Positive: Decreased Breath Sounds Neuro: Positive: Grossly Intact Abdomen: Negative: Tender Extremities: Present: +2 Edema (BLE, chronic) Results 09/24/19 07:07 09/24/19 07:07 Cardiac Enzymes 09/23/19 Range/Units 17:13 AST 20 (5-40) units/L Coagulation 09/23/19 09/23/19 Range/Units 16:49 17:13 PT 16.8 H 17.2 H (12.2-14.9) Sec. INR 1.38 H 1.42 H (0.87-1.13) APTT 30.2 (24.2-36.6) Sec. Lipids 09/23/19 Range/Units 16:49 Triglycerides 98 (2-149) mg/dL Cholesterol 107 (50-199) mg/dL HDL Cholesterol 36 L (40-59) mg/dL Cholesterol/HDL Ratio 2.97 % CBC 09/23/19 09/23/19 09/24/19 Range/Units 16:49 17:13 07:07 WBC 10.4 11.3 H 6.9 (4.5-11.0) K/mm3 RBC 3.26 L 3.31 L 2.65 L (3.65-5.03) M/mm3 Hgb 9.2 L 9.2 L 7.7 L (10.1-14.3) gm/dl Hct 29.4 L 30.3 24.1 L D (30.3-42.9) % Plt Count 195 193 80 L (140-440) K/mm3 Comprehensive Metabolic Panel 09/23/19 09/23/19 09/24/19 Range/Units 16:49 17:13 07:07 Sodium 138 138 137 (137-145) mmol/L Potassium 3.4 L 3.5 L 3.8 (3.6-5.0) mmol/L Chloride 99.2 102.9 100.2 (98-107) mmol/L Carbon Dioxide 25 26 21 L (22-30) mmol/L BUN 15 14 17 (7-17) mg/dL Creatinine 3.6 H 3.4 H 3.7 H (0.7-1.2) mg/dL Glucose 92 95 165 H (65-100) mg/dL Calcium 8.8 8.8 8.4 (8.4-10.2) mg/dL AST 20 (5-40) units/L ALT 13 (7-56) units/L Alkaline Phosphatase 130 H (35-129) units/L Total Protein 7.4 (6.3-8.2) g/dL Albumin 2.2 L (3.9-5) g/dL - Imaging and Cardiology Echo: report reviewed (06/2019 showed EF 50-55%, mod LVH, septal flattening of IV septum c/w RV volume overload, RV systolic function mod reduced, catheter in RA, mod TR, RVSP 28mmHg. ) EKG: report reviewed, image reviewed EKG interpretations - Telemetry EKG Rhythm: Sinus Tachycardia - EKG Sinus rhythms and dysrhythmias: sinus tachycardia Assessment and Plan Pt presented for evaluation of tachycardia which was noted in Dr. Brink's office yesterday (she was in Dr. Brink's office for vascath exchange). She was referred to ED for further eval/management of tachycardia. Per ED physician documentation and hospitalist H&P, pt was believed to be in AFib upon arrival to ED. However, review of telemetry and ECG here shows sinus tachycardia, no atrial fibrillation noted. Pt denies any complaints. Sinus tachycardia appears physiologic secondary to multiple co-morbidities. Echo done 06/2019 showed EF 50-55%, mod LVH, septal flattening of IV septum c/w RV volume overload, RV systolic function mod reduced, catheter in RA, mod TR, RVSP 28mmHg. Will optimize HR and BPs - initiate lopressor. CE elevation appears c/w NSTEMI type II. The patient has been seen in conjunction with Dr. Jarrell Koo who agrees with the assessment and plan of care. - Patient Problems (1) Sinus tachycardia Current Visit: Yes Status: Acute (2) End stage renal disease on dialysis Current Visit: Yes Status: Chronic (3) HTN (hypertension) Current Visit: Yes Status: Chronic Qualifiers: Hypertension type: essential hypertension Qualified Code(s): I10 - Essential (primary) hypertension (4) Hypertensive heart disease Current Visit: Yes Status: Chronic Qualifiers: Heart failure presence: with heart failure Heart failure type: systolic Heart failure chronicity: acute on chronic Qualified Code(s): I11.0 - Hypertensive heart disease with heart failure; I50.23 - Acute on chronic systo lic (congestive) heart failure (5) Diabetes Current Visit: Yes Status: Chronic (6) NSTEMI (non-ST elevated myocardial infarction) Current Visit: Yes Status: Chronic Plan to address problem: type II (7) Morbid obesity Current Visit: Yes Status: Chronic (8) Anemia Current Visit: Yes Status: Chronic (9) Thrombocytopenia Current Visit: Yes Status: Acute (10) Cellulitis Current Visit: Yes Status: Suspected
[2019-09-24 14:12] LABS: Hepatitis B Surface Antigen Non-Reactive (Negative); Hepatitis C Virus Antibody Non-Reactive (NonReactive)
--- NOTE | 2019-09-24 15:27 | Consultation ---
History of Present Illness - Reason for Consult Consult date: 09/24/19 B/L LE wounds with infection Requesting physician: WHIT JEFFERY - History of Present Illness The patient is a 44 year old female with ESRD on HD, HTN, liver disease, cellulitis, morbidly obese, chronic bilateral leg ulcerations well known to our service, multiple admissions. She was recently hospitalized last month, had a new left foot dorsum abscess s/p I&D at the bedside by Dr. Michelle received several days of IV abx while in the hospital, was set up with additional 7 days of IV Ceftaz + Vancomycin at dialysis. Apparently her HD cath malfunctioned on Friday after dialysis, so was referred to vascular. Now admitted due to tachycardia noted at Dr. Brink's clinic, was there for placement of new HD cath. There was concern for possible A.fib with RVR, so was admitted. Also was given a dose of Cefepime for her wounds. No fever. Continues to follow up once a week with the wound care center. Previous chart and cultures reviewed. Review of Systems: General: no fevers,chills or rigors HEENT: no new visual disturbance Respiratory: No cough, sputum, hemoptysis or shortness of breath Cardiovascular: No chest pain, syncope Gastrointestinal: No nausea, vomiting or diarrhea Genitourinary: No dysuria or hematuria Musculoskeletal: No new or worsening neck pain or back pain Neurologic: No headaches, seizures Hematologic: No easy bruising or bleeding Endocrine: No night sweats or acute weight loss Skin: negative for rash, jaundice Psychiatric: No suicidal or homicidal ideation Past History Past Medical History: COPD, diabetes, heart failure, hypertension, PVD, other (morbid obesity, chronic lower extremity wounds, liver disease, cellulitis (foot on found to have Escherichia coli growth)) Past Surgical History: , Other (left chest permacath) Social history: lives with family (mother) Family history: no significant family history Medications and Allergies Allergies Allergy/AdvReac Type Severity Reaction Status Date / Time No Known Allergies Allergy Verified 03/12/19 12:23 Home Medications Medication Instructions Recorded Confirmed Last Taken Type Ergocalciferol(Vitamin D2)(Nf) 800 unit PO DAILY 07/06/19 09/23/19 1 Day Ago History [Vitamin D (Nf)] ~08/12/19 cloNIDine [Catapres] 0.2 mg PO BID 07/06/19 09/23/19 08/28/19 22:00 History Pantoprazole [Protonix TAB] 40 mg PO QDAY #30 tablet 07/14/19 09/23/19 08/13/19 Rx Insulin NPH/Regular [NovoLIN 70/30] 5 unit SUB-Q BIDDIAB units 08/13/19 09/23/19 Unknown Rx Insulin NPH/Regular [NovoLIN 70/30] 5 unit SUB-Q BIDDIAB #10 ml 08/13/19 09/23/19 Unknown Rx Lactulose [Cephulac] 20 gm PO BID oral.liqd 08/13/19 09/23/19 Unknown Rx ALBUTEROL NEB's [Proventil 0.083% 2.5 mg IH Q3HRT PRN #30 nebu 09/02/19 09/23/19 Unknown Rx NEBS] Acetaminophen [Acetaminophen TAB] 650 mg PO Q4H PRN tablet 09/13/19 09/23/19 Unknown Rx Active Meds: Active Medications Acetaminophen (Tylenol) 650 mg PO Q4H PRN PRN Reason: Pain MILD(1-3)/Fever >100.5/[place] Albuterol (Proventil) 2.5 mg IH Q4HRT PRN PRN Reason: Shortness Of Breath Cholecalciferol (Vitamin D3) 800 unit PO QDAY [facility] Last Admin: 09/24/19 09:29 Dose: 800 unit Documented by: Clonidine HCl (Catapres) 0.2 mg PO BID [facility] Last Admin: 09/24/19 09:29 Dose: 0.2 mg Documented by: Dextrose (D50w (25gm) Syringe) 50 ml IV Q30MIN PRN; Protocol PRN Reason: Hypoglycemia Diphenhydramine HCl (Benadryl) 25 mg IV Q6H PRN PRN Reason: Itching Gabapentin (Gabapentin) 100 mg PO Q8HR [facility] Last Admin: 09/24/19 13:27 Dose: 100 mg Documented by: Heparin Sodium (Porcine) (Heparin) 5,000 unit SUB-Q Q12HR [facility] Last Admin: 09/24/19 09:31 Dose: 5,000 unit Documented by: Cefepime HCl (Cefepime/Ns 1 Gm/100 Ml) 1 gm in 100 mls @ 200 mls/hr IV Q24H [facility]; Protocol Last Admin: 09/24/19 09:31 Dose: 200 mls/hr Documented by: Insulin Human Lispro (Humalog) 0 unit SUB-Q ACHS [facility]; Protocol Last Admin: 09/24/19 13:00 Dose: Not Given Documented by: Lactulose (Cephulac) 20 gm PO BID [facility] Last Admin: 09/24/19 09:30 Dose: 20 gm Documented by: Metoprolol Tartrate (Metoprolol) 50 mg PO BID [facility] Nitroglycerin (Nitrostat) 0.4 mg SL .Q5MIN PRN PRN Reason: Chest Pain Ondansetron HCl (Zofran) 4 mg IV Q6H PRN PRN Reason: Nausea And Vomiting Oxycodone/Acetaminophen (Percocet 5/325) 1 tab PO Q6H PRN PRN Reason: Pain, Moderate (4-6) Last Admin: 09/23/19 22:39 Dose: 1 tab Documented by: Pantoprazole Sodium (Protonix) 40 mg PO QDAY [facility] Last Admin: 09/24/19 09:29 Dose: 40 mg Documented by: Sodium Chloride (Sodium Chloride Flush Syringe 10 Ml) 10 ml IV BID [facility] Last Admin: 09/24/19 09:31 Dose: 10 ml Documented by: Sodium Chloride (Sodium Chloride Flush Syringe 10 Ml) 10 ml IV PRN PRN PRN Reason: LINE FLUSH Physical Examination - Physical Exam Narrative exam: Physical Exam: Constitutional: awake, alert. obese Head, Ears, Nose: Normocephalic, atraumatic. External ears, nose normal Eyes: Conjunctivae/corneas clear. icterus +. No ptosis. Neck: Supple, no meningeal signs Oral: no thrush Cardiovascular: S1, S2 normal. Respiratory: Good air entry, clear to auscultation bilaterally GI: obese, abdominal wall edema, bowel sounds +, No peritoneal signs Musculoskeletal: large bilateral lower extremity wounds with dressings. HD cath +. left foot dorsum with another wound with dressing. Wounds appear healthy with 95% granulation tissue Skin: No rash or abscess Hem/Lymphatic: No palpable cervical or supraclavicular nodes. No lymphangitis Psych: mood OK, affect normal Neurological: awake, alert, oriented - Constitutional Vitals: Vital Signs Temp Pulse Resp BP Pulse Ox 98.3 F 122 H 18 127/57 97 09/23/19 22:11 09/24/19 09:29 09/24/19 11:56 09/24/19 09:29 09/24/19 09:21 Temperature -Last 24 Hours Temperature 98.3 F Results - Labs CBC & Chem 7: 09/24/19 07:07 09/24/19 07:07 Labs: Abnormal lab results 09/23/19 09/23/19 09/23/19 Range/Units 16:49 16:49 16:49 WBC (4.5-11.0) K/mm3 RBC 3.26 L (3.65-5.03) M/mm3 Hgb 9.2 L (10.1-14.3) gm/dl Hct 29.4 L (30.3-42.9) % RDW 25.1 H (13.2-15.2) % Plt Count (140-440) K/mm3 Monocytes % (Manual) (0.0-7.3) % Eosinophils % (Manual) 8.0 H (0.0-4.3) % Basophils % (Manual) 2.0 H (0.0-1.8) % Nucleated RBC % 2.0 H (0.0-0.9) % Lymphocytes # (Manual) (1.2-5.4) K/mm3 Monocytes # (Manual) (0.0-0.8) K/mm3 Eosinophils # (Manual) 0.8 H (0.0-0.4) K/mm3 Basophils # (Manual) 0.2 H (0.0-0.1) K/mm3 PT 16.8 H (12.2-14.9) Sec. INR 1.38 H (0.87-1.13) VBG pH (7.320-7.420) Potassium 3.4 L (3.6-5.0) mmol/L Carbon Dioxide (22-30) mmol/L Creatinine 3.6 H (0.7-1.2) mg/dL Glucose (65-100) mg/dL POC Glucose (70-105) Alkaline Phosphatase (35-129) units/L Troponin T (0.00-0.029) ng/mL Albumin (3.9-5) g/dL HDL Cholesterol (40-59) mg/dL 12/03/0709/23/19 09/23/19 Range/Units 16:49 17:13 17:13 WBC 11.3 H (4.5-11.0) K/mm3 RBC 3.31 L (3.65-5.03) M/mm3 Hgb 9.2 L (10.1-14.3) gm/dl Hct (30.3-42.9) % RDW 24.7 H (13.2-15.2) % Plt Count (140-440) K/mm3 Monocytes % (Manual) 8.0 H (0.0-7.3) % Eosinophils % (Manual) 6.0 H (0.0-4.3) % Basophils % (Manual) 3.0 H (0.0-1.8) % Nucleated RBC % 3.0 H (0.0-0.9) % Lymphocytes # (Manual) (1.2-5.4) K/mm3 Monocytes # (Manual) 0.9 H (0.0-0.8) K/mm3 Eosinophils # (Manual) 0.7 H (0.0-0.4) K/mm3 Basophils # (Manual) 0.3 H (0.0-0.1) K/mm3 PT 17.2 H (12.2-14.9) Sec. INR 1.42 H (0.87-1.13) VBG pH (7.320-7.420) Potassium (3.6-5.0) mmol/L Carbon Dioxide (22-30) mmol/L Creatinine (0.7-1.2) mg/dL Glucose (65-100) mg/dL POC Glucose (70-105) Alkaline Phosphatase (35-129) units/L Troponin T 0.195 H* (0.00-0.029) ng/mL Albumin (3.9-5) g/dL HDL Cholesterol 36 L (40-59) mg/dL 09/23/19 09/23/19 09/23/19 Range/Units 17:13 17:13 22:55 WBC (4.5-11.0) K/mm3 RBC (3.65-5.03) M/mm3 Hgb (10.1-14.3) gm/dl Hct (30.3-42.9) % RDW (13.2-15.2) % Plt Count (140-440) K/mm3 Monocytes % (Manual) (0.0-7.3) % Eosinophils % (Manual) (0.0-4.3) % Basophils % (Manual) (0.0-1.8) % Nucleated RBC % (0.0-0.9) % Lymphocytes # (Manual) (1.2-5.4) K/mm3 Monocytes # (Manual) (0.0-0.8) K/mm3 Eosinophils # (Manual) (0.0-0.4) K/mm3 Basophils # (Manual) (0.0-0.1) K/mm3 PT (12.2-14.9) Sec. INR (0.87-1.13) VBG pH 7.480 H (7.320-7.420) Potassium 3.5 L (3.6-5.0) mmol/L Carbon Dioxide (22-30) mmol/L Creatinine 3.4 H (0.7-1.2) mg/dL Glucose (65-100) mg/dL POC Glucose 173 H (70-105) Alkaline Phosphatase 130 H (35-129) units/L Troponin T (0.00-0.029) ng/mL Albumin 2.2 L (3.9-5) g/dL HDL Cholesterol (40-59) mg/dL 09/24/19 09/24/19 09/24/19 Range/Units 07:07 07:07 08:45 WBC (4.5-11.0) K/mm3 RBC 2.65 L (3.65-5.03) M/mm3 Hgb 7.7 L (10.1-14.3) gm/dl Hct 24.1 L D (30.3-42.9) % RDW 25.3 H (13.2-15.2) % Plt Count 80 L (140-440) K/mm3 Monocytes % (Manual) 13.0 H (0.0-7.3) % Eosinophils % (Manual) 6.0 H (0.0-4.3) % Basophils % (Manual) (0.0-1.8) % Nucleated RBC % 1.0 H (0.0-0.9) % Lymphocytes # (Manual) 1.0 L (1.2-5.4) K/mm3 Monocytes # (Manual) 0.9 H (0.0-0.8) K/mm3 Eosinophils # (Manual) (0.0-0.4) K/mm3 Basophils # (Manual) (0.0-0.1) K/mm3 PT (12.2-14.9) Sec. INR (0.87-1.13) VBG pH (7.320-7.420) Potassium (3.6-5.0) mmol/L Carbon Dioxide 21 L (22-30) mmol/L Creatinine 3.7 H (0.7-1.2) mg/dL Glucose 165 H (65-100) mg/dL POC Glucose 172 H (70-105) Alkaline Phosphatase (35-129) units/L Troponin T (0.00-0.029) ng/mL Albumin (3.9-5) g/dL HDL Cholesterol (40-59) mg/dL 09/24/19 Range/Units 13:15 WBC (4.5-11.0) K/mm3 RBC (3.65-5.03) M/mm3 Hgb (10.1-14.3) gm/dl Hct (30.3-42.9) % RDW (13.2-15.2) % Plt Count (140-440) K/mm3 Monocytes % (Manual) (0.0-7.3) % Eosinophils % (Manual) (0.0-4.3) % Basophils % (Manual) (0.0-1.8) % Nucleated RBC % (0.0-0.9) % Lymphocytes # (Manual) (1.2-5.4) K/mm3 Monocytes # (Manual) (0.0-0.8) K/mm3 Eosinophils # (Manual) (0.0-0.4) K/mm3 Basophils # (Manual) (0.0-0.1) K/mm3 PT (12.2-14.9) Sec. INR (0.87-1.13) VBG pH (7.320-7.420) Potassium (3.6-5.0) mmol/L Carbon Dioxide (22-30) mmol/L Creatinine (0.7-1.2) mg/dL Glucose (65-100) mg/dL POC Glucose 150 H (70-105) Alkaline Phosphatase (35-129) units/L Troponin T (0.00-0.029) ng/mL Albumin (3.9-5) g/dL HDL Cholesterol (40-59) mg/dL - Imaging and Cardiology Chest x-ray: report reviewed, image reviewed (Chest x-ray shows HD catheter in place. No evidence of pneumonia.) Assessment and Plan Cultures: 09/23/2019 blood culture: In progress A/P: 44 yo F PMHx ESRD on HD HTN, liver disease, cellulitis, bilateral leg ulcerations admitted with tachycardia: 1) Tachycardia: no fever. Borderline leucocytosis on admission, already improved. Has chronic wounds, these do not appear to be infected. CXR without pneumonia. 2) Bilateral LE wounds, left foot dorsum wound and buttock wounds - s/p debridement in 08/2019 and wound care. Completed abx for this. Wounds appear quite healthy with 95% granulation tissue except the left foot dorsum which needs continued wound care. 3) ESRD on HD - renally dose antibiotics as appropriate. Awaiting new HD cath. Recs: - antibiotics discontinued - continue ongoing wound care here and as outpatient Xochilt Pitts MD, FACP [facility] ([facility] C: [phone] O: [phone] F: [phone]
--- NOTE | 2019-09-24 16:45 | Consultation ---
History of Present Illness - Reason for Consult Consult date: 09/24/19 - History of Present Illness HPI: 44yo female with ESRD on HD via left IJ permcath currently hospitalized for management of sinus tachycardia and generalized pain was recently seen at our office for permcath exchange for an exposed cuff. Patient currently being treated medically for cardiac issues. Patient denies any fevers, chills or drainage from catheter. ROS: as per HPI PE: NAD, A&Ox3 tachycardiac non-labored respirations left IJ permcath intact with partially exposed cuff, no erythema or drainage noted Plan: attempted to schedule patient for permcath exchange today in the [employer]. she refused and states that she does not feel well. the patient states she would rather follow-up as an outpatient to have the catheter addressed. explained to the patient the risk of waiting, she expressed understanding. the catheter is ok to use for dialysis. we will have the patient follow-up next week for cathet er exchange as an outpatient. please call for any questions/concerns or if the patient changes her mind. Past History Past Medical History: COPD, diabetes, heart failure, hypertension, PVD, other (morbid obesity, chronic lower extremity wounds, liver disease, cellulitis (foot on found to have Escherichia coli growth)) Past Surgical History: , Other (left chest permacath) Social history: lives with family (mother) Family history: no significant family history Medications and Allergies Allergies Allergy/AdvReac Type Severity Reaction Status Date / Time No Known Allergies Allergy Verified 03/12/19 12:23 Home Medications Medication Instructions Recorded Confirmed Last Taken Type Ergocalciferol(Vitamin D2)(Nf) 800 unit PO DAILY 07/06/19 09/23/19 1 Day Ago History [Vitamin D (Nf)] ~08/12/19 cloNIDine [Catapres] 0.2 mg PO BID 07/06/19 09/23/19 08/28/19 22:00 History Pantoprazole [Protonix TAB] 40 mg PO QDAY #30 tablet 07/14/19 09/23/19 08/13/19 Rx Insulin NPH/Regular [NovoLIN 70/30] 5 unit SUB-Q BIDDIAB units 08/13/19 09/23/19 Unknown Rx Insulin NPH/Regular [NovoLIN 70/30] 5 unit SUB-Q BIDDIAB #10 ml 08/13/19 09/23/19 Unknown Rx Lactulose [Cephulac] 20 gm PO BID oral.liqd 08/13/19 09/23/19 Unknown Rx ALBUTEROL NEB's [Proventil 0.083% 2.5 mg IH Q3HRT PRN #30 nebu 09/02/19 09/23/19 Unknown Rx NEBS] Acetaminophen [Acetaminophen TAB] 650 mg PO Q4H PRN tablet 09/13/19 09/23/19 Unknown Rx Active Meds: Active Medications Acetaminophen (Tylenol) 650 mg PO Q4H PRN PRN Reason: Pain MILD(1-3)/Fever >100.5/[place] Albuterol (Proventil) 2.5 mg IH Q4HRT PRN PRN Reason: Shortness Of Breath Cholecalciferol (Vitamin D3) 800 unit PO QDAY [facility] Last Admin: 09/24/19 09:29 Dose: 800 unit Documented by: Clonidine HCl (Catapres) 0.2 mg PO BID [facility] Last Admin: 09/24/19 09:29 Dose: 0.2 mg Documented by: Dextrose (D50w (25gm) Syringe) 50 ml IV Q30MIN PRN; Protocol PRN Reason: Hypoglycemia Diphenhydramine HCl (Benadryl) 25 mg IV Q6H PRN PRN Reason: Itching Gabapentin (Gabapentin) 100 mg PO Q8HR [facility] Last Admin: 09/24/19 13:27 Dose: 100 mg Documented by: Heparin Sodium (Porcine) (Heparin) 5,000 unit SUB-Q Q12HR [facility] Last Admin: 09/24/19 09:31 Dose: 5,000 unit Documented by: Insulin Human Lispro (Humalog) 0 unit SUB-Q ACHS [facility]; Protocol Last Admin: 09/24/19 13:00 Dose: Not Given Documented by: Lactulose (Cephulac) 20 gm PO BID [facility] Last Admin: 09/24/19 09:30 Dose: 20 gm Documented by: Metoprolol Tartrate (Metoprolol) 50 mg PO BID [facility] Nitroglycerin (Nitrostat) 0.4 mg SL .Q5MIN PRN PRN Reason: Chest Pain Ondansetron HCl (Zofran) 4 mg IV Q6H PRN PRN Reason: Nausea And Vomiting Oxycodone/Acetaminophen (Percocet 5/325) 1 tab PO Q6H PRN PRN Reason: Pain, Moderate (4-6) Last Admin: 09/23/19 22:39 Dose: 1 tab Documented by: Pantoprazole Sodium (Protonix) 40 mg PO QDAY [facility] Last Admin: 09/24/19 09:29 Dose: 40 mg Documented by: Sodium Chloride (Sodium Chloride Flush Syringe 10 Ml) 10 ml IV BID [facility] Last Admin: 09/24/19 09:31 Dose: 10 ml Documented by: Sodium Chloride (Sodium Chloride Flush Syringe 10 Ml) 10 ml IV PRN PRN PRN Reason: LINE FLUSH Exam - Constitutional Vitals: Temp Pulse Resp BP Pulse Ox 98.3 F 122 H 18 127/57 97 09/23/19 22:11 09/24/19 09:29 09/24/19 11:56 09/24/19 09:29 09/24/19 09:21 Results - Labs CBC & Chem 7: 09/24/19 07:07 09/24/19 07:07 Labs: Abnormal lab results 09/23/19 09/23/19 09/23/19 Range/Units 16:49 16:49 16:49 WBC (4.5-11.0) K/mm3 RBC 3.26 L (3.65-5.03) M/mm3 Hgb 9.2 L (10.1-14.3) gm/dl Hct 29.4 L (30.3-42.9) % RDW 25.1 H (13.2-15.2) % Plt Count (140-440) K/mm3 Monocytes % (Manual) (0.0-7.3) % Eosinophils % (Manual) 8.0 H (0.0-4.3) % Basophils % (Manual) 2.0 H (0.0-1.8) % Nucleated RBC % 2.0 H (0.0-0.9) % Lymphocytes # (Manual) (1.2-5.4) K/mm3 Monocytes # (Manual) (0.0-0.8) K/mm3 Eosinophils # (Manual) 0.8 H (0.0-0.4) K/mm3 Basophils # (Manual) 0.2 H (0.0-0.1) K/mm3 PT 16.8 H (12.2-14.9) Sec. INR 1.38 H (0.87-1.13) VBG pH (7.320-7.420) Potassium 3.4 L (3.6-5.0) mmol/L Carbon Dioxide (22-30) mmol/L Creatinine 3.6 H (0.7-1.2) mg/dL Glucose (65-100) mg/dL POC Glucose (70-105) Alkaline Phosphatase (35-129) units/L Troponin T (0.00-0.029) ng/mL Albumin (3.9-5) g/dL HDL Cholesterol (40-59) mg/dL 09/23/19 09/23/19 09/23/19 Range/Units 16:49 17:13 17:13 WBC 11.3 H (4.5-11.0) K/mm3 RBC 3.31 L (3.65-5.03) M/mm3 Hgb 9.2 L (10.1-14.3) gm/dl Hct (30.3-42.9) % RDW 24.7 H (13.2-15.2) % Plt Count (140-440) K/mm3 Monocytes % (Manual) 8.0 H (0.0-7.3) % Eosinophils % (Manual) 6.0 H (0.0-4.3) % Basophils % (Manual) 3.0 H (0.0-1.8) % Nucleated RBC % 3.0 H (0.0-0.9) % Lymphocytes # (Manual) (1.2-5.4) K/mm3 Monocytes # (Manual) 0.9 H (0.0-0.8) K/mm3 Eosinophils # (Manual) 0.7 H (0.0-0.4) K/mm3 Basophils # (Manual) 0.3 H (0.0-0.1) K/mm3 PT 17.2 H (12.2-14.9) Sec. INR 1.42 H (0.87-1.13) VBG pH (7.320-7.420) Potassium (3.6-5.0) mmol/L Carbon Dioxide (22-30) mmol/L Creatinine (0.7-1.2) mg/dL Glucose (65-100) mg/dL POC Glucose (70-105) Alkaline Phosphatase (35-129) units/L Troponin T 0.195 H* (0.00-0.029) ng/mL Albumin (3.9-5) g/dL HDL Cholesterol 36 L (40-59) mg/dL 09/23/19 09/23/19 09/23/19 Range/Units 17:13 17:13 22:55 WBC (4.5-11.0) K/mm3 RBC (3.65-5.03) M/mm3 Hgb (10.1-14.3) gm/dl Hct (30.3-42.9) % RDW (13.2-15.2) % Plt Count (140-440) K/mm3 Monocytes % (Manual) (0.0-7.3) % Eosinophils % (Manual) (0.0-4.3) % Basophils % (Manual) (0.0-1.8) % Nucleated RBC % (0.0-0.9) % Lymphocytes # (Manual) (1.2-5.4) K/mm3 Monocytes # (Manual) (0.0-0.8) K/mm3 Eosinophils # (Manual) (0.0-0.4) K/mm3 Basophils # (Manual) (0.0-0.1) K/mm3 PT (12.2-14.9) Sec. INR (0.87-1.13) VBG pH 7.480 H (7.320-7.420) Potassium 3.5 L (3.6-5.0) mmol/L Carbon Dioxide (22-30) mmol/L Creatinine 3.4 H (0.7-1.2) mg/dL Glucose (65-100) mg/dL POC Glucose 173 H (70-105) Alkaline Phosphatase 130 H (35-129) units/L Troponin T (0.00-0.029) ng/mL Albumin 2.2 L (3.9-5) g/dL HDL Cholesterol (40-59) mg/dL 09/24/19 09/24/19 09/24/19 Range/Units 07:07 07:07 08:45 WBC (4.5-11.0) K/mm3 RBC 2.65 L (3.65-5.03) M/mm3 Hgb 7.7 L (10.1-14.3) gm/dl Hct 24.1 L D (30.3-42.9) % RDW 25.3 H (13.2-15.2) % Plt Count 80 L (140-440) K/mm3 Monocytes % (Manual) 13.0 H (0.0-7.3) % Eosinophils % (Manual) 6.0 H (0.0-4.3) % Basophils % (Manual) (0.0-1.8) % Nucleated RBC % 1.0 H (0.0-0.9) % Lymphocytes # (Manual) 1.0 L (1.2-5.4) K/mm3 Monocytes # (Manual) 0.9 H (0.0-0.8) K/mm3 Eosinophils # (Manual) (0.0-0.4) K/mm3 Basophils # (Manual) (0.0-0.1) K/mm3 PT (12.2-14.9) Sec. INR (0.87-1.13) VBG pH (7.320-7.420) Potassium (3.6-5.0) mmol/L Carbon Dioxide 21 L (22-30) mmol/L Creatinine 3.7 H (0.7-1.2) mg/dL Glucose 165 H (65-100) mg/dL POC Glucose 172 H (70-105) Alkaline Phosphatase (35-129) units/L Troponin T (0.00-0.029) ng/mL Albumin (3.9-5) g/dL HDL Cholesterol (40-59) mg/dL 09/24/19 Range/Units 13:15 WBC (4.5-11.0) K/mm3 RBC (3.65-5.03) M/mm3 Hgb (10.1-14.3) gm/dl Hct (30.3-42.9) % RDW (13.2-15.2) % Plt Count (140-440) K/mm3 Monocytes % (Manual) (0.0-7.3) % Eosinophils % (Manual) (0.0-4.3) % Basophils % (Manual) (0.0-1.8) % Nucleated RBC % (0.0-0.9) % Lymphocytes # (Manual) (1.2-5.4) K/mm3 Monocytes # (Manual) (0.0-0.8) K/mm3 Eosinophils # (Manual) (0.0-0.4) K/mm3 Basophils # (Manual) (0.0-0.1) K/mm3 PT (12.2-14.9) Sec. INR (0.87-1.13) VBG pH (7.320-7.420) Potassium (3.6-5.0) mmol/L Carbon Dioxide (22-30) mmol/L Creatinine (0.7-1.2) mg/dL Glucose (65-100) mg/dL POC Glucose 150 H (70-105) Alkaline Phosphatase (35-129) units/L Troponin T (0.00-0.029) ng/mL Albumin (3.9-5) g/dL HDL Cholesterol (40-59) mg/dL
--- NOTE | 2019-09-24 17:15 | Consultation ---
History of Present Illness - Reason for Consult Consult date: 09/24/19 end stage renal disease - History of Present Illness Mrs. Purvis is a 44yo with ESRD on HD MWF who presented to the ED from vascular surgery office due to elevated HR. Patient was scheduled to have permcath exchanged due to exposed cuff noted by her outpatient dialysis clinic. Prior to procedure, her HR was noted to be in the 130s, so she was sent to the ED for evaluation. Past History Past Medical History: COPD, diabetes, heart failure, hypertension, PVD, other (morbid obesity, chronic lower extremity wounds, liver disease, cellulitis (foot on found to have Escherichia coli growth)) Past Surgical History: , Other (left chest permacath) Social history: lives with family (mother) Family history: no significant family history Medications and Allergies Allergies Allergy/AdvReac Type Severity Reaction Status Date / Time No Known Allergies Allergy Verified 03/12/19 12:23 Home Medications Medication Instructions Recorded Confirmed Last Taken Type Ergocalciferol(Vitamin D2)(Nf) 800 unit PO DAILY 07/06/19 09/23/19 1 Day Ago History [Vitamin D (Nf)] ~08/12/19 cloNIDine [Catapres] 0.2 mg PO BID 07/06/19 09/23/19 08/28/19 22:00 History Pantoprazole [Protonix TAB] 40 mg PO QDAY #30 tablet 07/14/19 09/23/19 08/13/19 Rx Insulin NPH/Regular [NovoLIN 70/30] 5 unit SUB-Q BIDDIAB units 08/13/19 09/23/19 Unknown Rx Insulin NPH/Regular [NovoLIN 70/30] 5 unit SUB-Q BIDDIAB #10 ml 08/13/1909/23 Unknown Rx Lactulose [Cephulac] 20 gm PO BID oral.liqd 08/13/19 09/23/19 Unknown Rx ALBUTEROL NEB's [Proventil 0.083% 2.5 mg IH Q3HRT PRN #30 nebu 09/02/19 09/23/19 Unknown Rx NEBS] Acetaminophen [Acetaminophen TAB] 650 mg PO Q4H PRN tablet 09/13/19 09/23/19 Unknown Rx Active Meds: Active Medications Acetaminophen (Tylenol) 650 mg PO Q4H PRN PRN Reason: Pain MILD(1-3)/Fever >100.5/[place] Albuterol (Proventil) 2.5 mg IH Q4HRT PRN PRN Reason: Shortness Of Breath Cholecalciferol (Vitamin D3) 800 unit PO QDAY [facility] Last Admin: 09/24/19 09:29 Dose: 800 unit Documented by: Clonidine HCl (Catapres) 0.2 mg PO BID [facility] Last Admin: 09/24/19 09:29 Dose: 0.2 mg Documented by: Dextrose (D50w (25gm) Syringe) 50 ml IV Q30MIN PRN; Protocol PRN Reason: Hypoglycemia Diphenhydramine HCl (Benadryl) 25 mg IV Q6H PRN PRN Reason: Itching Gabapentin (Gabapentin) 100 mg PO Q8HR [facility] Last Admin: 09/24/19 13:27 Dose: 100 mg Documented by: Heparin Sodium (Porcine) (Heparin) 5,000 unit SUB-Q Q12HR [facility] Last Admin: 09/24/19 09:31 Dose: 5,000 unit Documented by: Insulin Human Lispro (Humalog) 0 unit SUB-Q ACHS [facility]; Protocol Last Admin: 09/24/19 13:00 Dose: Not Given Documented by: Lactulose (Cephulac) 20 gm PO BID [facility] Last Admin: 09/24/19 09:30 Dose: 20 gm Documented by: Metoprolol Tartrate (Metoprolol) 50 mg PO BID [facility] Nitroglycerin (Nitrostat) 0.4 mg SL .Q5MIN PRN PRN Reason: Chest Pain Ondansetron HCl (Zofran) 4 mg IV Q6H PRN PRN Reason: Nausea And Vomiting Oxycodone/Acetaminophen (Percocet 5/325) 1 tab PO Q6H PRN PRN Reason: Pain, Moderate (4-6) Last Admin: 09/23/19 22:39 Dose: 1 tab Documented by: Pantoprazole Sodium (Protonix) 40 mg PO QDAY [facility] Last Admin: 09/24/19 09:29 Dose: 40 mg Documented by: Sodium Chloride (Sodium Chloride Flush Syringe 10 Ml) 10 ml IV BID [facility] Last Admin: 09/24/19 09:31 Dose: 10 ml Documented by: Sodium Chloride (Sodium Chloride Flush Syringe 10 Ml) 10 ml IV PRN PRN PRN Reason: LINE FLUSH Review of Systems All systems: negative Exam - Vital Signs Vital signs: Vital Signs Temp Pulse Resp BP Pulse Ox 97.9 F 129 H 16 120/69 100 09/23/19 15:09 09/23/19 15:09 09/23/19 15:09 09/23/19 15:09 09/23/19 15:09 - General Appearance General appearance: well-developed, well-nourished, obese EENT: ATNC Respiratory: Clear to Ascultation Heart: regular, S1S2 Gastrointestinal: Present: obese. Absent: tenderness, distended Neurologic: no focal deficit Musculoskeletal: Present: other (bilateral LE bandaged) Psychiatric: cooperative Results - Lab Results 09/24/19 07:07 09/24/19 07:07 Most recent lab results Calcium 8.4 mg/dL (8.4-10.2) 09/24/19 07:07 Magnesium 1.90 mg/dL (1.7-2.3) 09/24/19 07:07 Assessment and Plan Assessment * End-stage renal disease * Malfunctioning/dislodged permcath * Sinus tachycardia * Calciphylaxis * Lactic acidosis * Anemia secondary to ESRD * Medical noncompliance Plan: * Patient refused permcath exchange today despite vascular surgery attempt to explain need for exchange * Will plan for HD tomorrow - UF as tolerated * Cardiology recommendations noted - beta kiara started * UF as tolerated * ID following - abx per ID * Epogen TIW prn * Renal diet * Monitor lytes and volume status closely * Dose medications for renal function * Permcath is not safe to use in an outpatient setting as cuff is exposed; she is not cleared for d/c until permcath exchanged.
[2019-09-24] MEDS ORDERED: EPOETIN ALFA 20,000 UNIT/1 ML INJ IV PRN (17:19)
[2019-09-24] MEDS ORDERED: SODIUM CHLORIDE 0.9% 100 ML IV PRN (17:19)
[2019-09-24] MEDS: METOPROLOL TARTRATE 50 MG TAB PO SCH (21:11)
[2019-09-25] MEDS: oxyCODONE /ACETAMINOPHEN 5-325MG TAB PO PRN ×2 (00:42→17:39)
[2019-09-25] MEDS: GABAPENTIN 100 MG CAP PO SCH ×3 (05:49→21:49)
[2019-09-25] MEDS: INSULIN LISPRO 100 UNIT/ML SUB-Q SCH ×4 (09:00→22:11)
[2019-09-25] MEDS: CHOLECALCIFEROL (VIT D3) 400 UNIT TAB PO SCH (09:28)
[2019-09-25] MEDS: PANTOPRAZOLE 40 MG TAB PO SCH (09:29)
[2019-09-25] MEDS: LACTULOSE 20 GM/30 ML ORAL LIQD PO SCH ×2 (09:29→21:48)
[2019-09-25] MEDS: HEPARIN 5,000 UNIT/1 ML VIAL SUB-Q SCH ×2 (09:31→21:49)
[2019-09-25] MEDS: METOPROLOL TARTRATE 50 MG TAB PO SCH ×2 (09:43→21:48)
--- NOTE | 2019-09-25 11:34 | Progress Note ---
Assessment and Plan Will hold metoprolol for now d/t hypotension. Tachycardia likely physiologic d/t multiple medical problems. If pressures are stable during/after dialysis, will consider resuming at lower dose. Continue other cardiac management for now. The patient has been seen in conjunction with Dr. Goodson, who agrees with the assessment and plan. - Patient Problems (1) Sinus tachycardia Current Visit: Yes Status: Acute (2) End stage renal disease on dialysis Current Visit: Yes Status: Chronic (3) LVH (left ventricular hypertrophy) Current Visit: Yes Status: Chronic (4) Obesity Current Visit: Yes Status: Chronic (5) Anemia Current Visit: Yes Status: Chronic (6) HTN (hypertension) Current Visit: Yes Status: Chronic Qualifiers: Hypertension type: essential hypertension Qualified Code(s): I10 - Essential (primary) hypertension (7) NSTEMI (non-ST elevated myocardial infarction) Current Visit: Yes Status: Acute (8) T2DM (type 2 diabetes mellitus) Current Visit: No Status: Chronic (9) Bilateral lower leg cellulitis Current Visit: No Status: Suspected Subjective Date of service: 09/25/19 Interval history: The patient is lying in bed in NAD. Awaiting dialysis. She is tachycardic with borderline BPs this morning. Objective Last Vital Signs Temp 98.8 F 09/25/19 04:26 Pulse 112 H 09/25/19 09:43 Resp 18 09/25/19 08:10 BP 101/50 09/25/19 09:43 Pulse Ox 97 09/25/19 04:26 - Physical Examination General: No Apparent Distress HEENT: Positive: PERRL, Normocephaly, Mucus Membranes Moist Neck: Positive: neck supple, trachea midline Cardiac: Positive: Regular Rhythm Lungs: Positive: Normal Exam Neuro: Positive: Grossly Intact Abdomen: Positive: Unremarkable. Negative: Tender /Rectal: Other (deferred) Skin: Positive: Other (left permacath site intact, but cuff exposed ) Musculoskeletal: Decreased Range of Motion Extremities: Present: +2 Edema (BLE, chronic) - Labs and Meds CBC 09/24/19 Range/Units 07:07 Plt Count 80 L (140-440) K/mm3 - Imaging and Cardiology EKG: report reviewed, image reviewed Echo: report reviewed (06/2019 showed EF 50-55%, mod LVH, septal flattening of IV septum c/w RV volume overload, RV systolic function mod reduced, catheter in RA, mod TR, RVSP 28mmHg. ) - Telemetry EKG Rhythm: Sinus Tachycardia - EKG Sinus rhythms and dysrhythmias: sinus tachycardia
--- NOTE | 2019-09-25 12:34 | Progress Note ---
Assessment and Plan Assessment * End-stage renal disease * Malfunctioning/dislodged permcath * Sinus tachycardia * Calciphylaxis * Anemia secondary to ESRD * Medical noncompliance Plan: * Will plan for HD today - UF as tolerated * Patient refused permcath exchange yesterday despite vascular surgery attempt to explain need for exchange * Cardiology recommendations noted - beta kiara initiated * ID following - abx per ID * Epogen TIW prn * Renal diet * Monitor lytes and volume status closely * Dose medications for renal function * Permcath is not safe to use in an outpatient setting as cuff is exposed; she is not cleared for d/c until permcath exchanged. Subjective Date of service: 09/25/19 Interval history: Patient seen on dialysis. States that she doesn't recall refusing permcath exchange - "I was out of it" Objective - Vital Signs Vital signs: Vital Signs - 12hr 09/25/19 09/25/19 09/25/19 04:26 08:10 09:43 Temperature 98.8 F Pulse Rate 114 H 112 H Respiratory 16 18 Rate Blood Pressure 97/50 101/50 O2 Sat by Pulse 97 Oximetry - General Appearance General appearance: well-developed, well-nourished, obese Respiratory: Present: Clear to Ascultation (anteriorly) Cardiology: regular, S1S2 Gastrointestinal: no tenderness, no distended, obese Neurologic: alert and oriented x3 Musculoskeletal: other (bilateral LE bandaged) Psychiatric: cooperative - Lab 09/24/19 07:07 09/24/19 07:07 Most recent lab results Calcium 8.4 mg/dL (8.4-10.2) 09/24/19 07:07 Magnesium 1.90 mg/dL (1.7-2.3) 09/24/19 07:07 Medications & Allergies - Medications Allergies/Adverse Reactions: Allergies No Known Allergies Allergy (Verified 03/12/19 12:23) Home Medications: Home Medications Medication Instructions Recorded Confirmed Last Taken Type Ergocalciferol(Vitamin D2)(Nf) 800 unit PO DAILY 07/06/19 09/23/19 1 Day Ago History [Vitamin D (Nf)] ~08/12/19 cloNIDine [Catapres] 0.2 mg PO BID 07/06/19 09/23/19 08/28/19 22:00 History Pantoprazole [Protonix TAB] 40 mg PO QDAY #30 tablet 07/14/19 09/23/19 08/13/19 Rx Insulin NPH/Regular [NovoLIN 70/30] 5 unit SUB-Q BIDDIAB units 08/13/19 09/23/19 Unknown Rx Insulin NPH/Regular [NovoLIN 70/30] 5 unit SUB-Q BIDDIAB #10 ml 08/13/19 09/23/19 Unknown Rx Lactulose [Cephulac] 20 gm PO BID oral.liqd 08/13/19 09/23/19 Unknown Rx ALBUTEROL NEB's [Proventil 0.083% 2.5 mg IH Q3HRT PRN #30 nebu 09/02/19 09/23/19 Unknown Rx NEBS] Acetaminophen [Acetaminophen TAB] 650 mg PO Q4H PRN tablet 09/13/19 09/23/19 Unknown Rx Active Medications: Generic Name Dose Route Start Last Admin Trade Name Freq PRN Reason Stop Dose Admin Acetaminophen 650 mg 09/23/19 19:57 Tylenol PO Q4H PRN Pain MILD(1-3)/Fever >100.5/[place] Albuterol 2.5 mg 09/23/19 20:39 Proventil IH Q4HRT PRN Shortness Of Breath Cholecalciferol 800 unit 09/24/19 10:00 09/25/19 09:28 Vitamin D3 PO 800 unit QDAY WALT Administration Dextrose 50 ml 09/23/19 19:57 D50w (25gm) Syringe IV Q30MIN PRN Hypoglycemia Protocol Diphenhydramine HCl 25 mg 09/23/19 20:06 Benadryl IV Q6H PRN Itching Epoetin Arias 20,000 unit 09/24/19 17:19 Procrit IV AMBER PRN hemodialysis Gabapentin 100 mg 09/24/19 14:00 09/25/19 05:49 Gabapentin PO Not Given Q8HR WALT Heparin Sodium (Porcine) 5,000 unit 09/23/19 22:00 09/25/19 09:31 Heparin SUB-Q 5,000 unit Q12HR [facility] Administration Sodium Chloride 100 mls @ 999 mls/hr 09/24/19 17:19 Nacl 0.9% IV AMBER PRN Hypotension Insulin Human Lispro 0 unit 09/23/19 22:00 09/25/19 09:00 Humalog SUB-Q Not Given ACHS WALT Protocol Lactulose 20 gm 09/23/19 22:00 09/25/19 09:29 Cephulac PO 20 gm BID WALT Administration Metoprolol Tartrate 50 mg 09/24/19 22:00 09/25/19 09:43 Metoprolol PO Not Given BID [facility] Nitroglycerin 0.4 mg 09/23/19 20:03 Nitrostat SL .Q5MIN PRN Chest Pain Ondansetron HCl 4 mg 09/23/19 19:57 Zofran IV Q6H PRN Nausea And Vomiting Oxycodone/Acetaminophen 1 tab 09/23/19 19:57 09/25/19 00:42 Percocet 5/325 PO 1 tab Q6H PRN Administration Pain, Moderate (4-6) Pantoprazole Sodium 40 mg 09/24/19 10:00 09/25/19 09:29 Protonix PO 40 mg QDAY WALT Administration Sodium Chloride 10 ml 09/23/19 22:00 09/25/19 09:30 Sodium Chloride Flush Syringe 10 Ml IV 10 ml BID WALT Administration Sodium Chloride 10 ml 09/23/19 19:57 Sodium Chloride Flush Syringe 10 Ml IV PRN PRN LINE FLUSH
--- NOTE | 2019-09-25 13:33 | Progress Note ---
Assessment and Plan Assessment and plan: New onset A.fibrillation with RVR -s/p IV Cardizem and metoprolol -cont oral metoprolol -Heart rate fairly controlled -Cont telemetry monitoring -Cardiology following ESRD on HD (M/W/F) -Nephrology following Hx of chronic BLE cellulitis -no indication for antibiotic except for wound care per ID -Wound Care nurse consulted Vascath malfunction -Vascular surgery consulted Chronically elevated troponin -Likely secondary to CHF and ESRD, stable -EKG unrevealing for ischemic changes DM2 with neuropathy -stable -POC BG monitoring and SSI coverage prn -cont gabapentin Hypokalemia -Resolved HTN -BP trended down, home clonidine held -cont IV hydralazine when necessary Chronic diastolic heart failure LVEF of 50-55% -No acute exacerbation AOCD -monitor H/H and transfuse for hb<7 -cont epogen during HD Morbid Obesity with BMI 51.2 -Diet and lifestyle modifications recommended Deconditioning -PT consulted DVT prophylaxis with heparin Disposition: Patient would benefit from inpatient rehabilitation facility placement due to multiple hospital readmission. Discharge per clinical course History Interval history: Patient reports feeling better today. She denied chest pain or shortness of breath. Hospitalist Physical - Constitutional Vitals: Temp Pulse Resp BP Pulse Ox 98.8 F 112 H 18 101/50 97 09/25/19 04:26 09/25/19 09:43 09/25/19 08:10 09/25/19 09:43 09/25/19 04:26 General appearance: Present: no acute distress - EENT Eyes: Present: PERRL, EOM intact ENT: hearing intact, clear oral mucosa - Neck Neck: Present: supple - Respiratory Respiratory effort: normal Respiratory: bilateral: diminished - Cardiovascular Rhythm: irregularly irregular Heart Sounds: Present: S1 & S2 - Extremities Extremity abnormal: edema (in BLE with dressings noted) - Abdominal General gastrointestinal: soft, non-tender, normal bowel sounds - Integumentary Integumentary: Present: erythema (with wound in BLE) - Psychiatric Psychiatric: cooperative - Neurologic Neurologic: moves all extremities Results - Labs CBC & Chem 7: 09/24/19 07:07 09/24/19 07:07 Labs: Laboratory Last Values WBC 6.9 K/mm3 (4.5-11.0) 09/24/19 07:07 RBC 2.65 M/mm3 (3.65-5.03) L 09/24/19 07:07 Hgb 7.7 gm/dl (10.1-14.3) L 09/24/19 07:07 Hct 24.1 % (30.3-42.9) L D 09/24/19 07:07 MCV 91 fl (79-97) 09/24/19 07:07 MCH 29 pg (28-32) 09/24/19 07:07 MCHC 32 % (30-34) 09/24/19 07:07 RDW 25.3 % (13.2-15.2) H 09/24/19 07:07 Plt Count 80 K/mm3 (140-440) L 09/24/19 07:07 Add Manual Diff Complete 09/24/19 07:07 Total Counted 100 09/24/19 07:07 Seg Neuts % (Manual) 66.0 % (40.0-70.0) 09/24/19 07:07 Band Neutrophils % 0 % 09/24/19 07:07 Lymphocytes % (Manual) 14.0 % (13.4-35.0) 09/24/19 07:07 Reactive Lymphs % (Man) 1.0 % 09/24/19 07:07 Monocytes % (Manual) 13.0 % (0.0-7.3) H 09/24/19 07:07 Eosinophils % (Manual) 6.0 % (0.0-4.3) H 09/24/19 07:07 Basophils % (Manual) 0 % (0.0-1.8) 09/24/19 07:07 Metamyelocytes % 0 % 09/24/19 07:07 Myelocytes % 0 % 09/24/19 07:07 Promyelocytes % 0 % 09/24/19 07:07 Blast Cells % 0 % 09/24/19 07:07 Nucleated RBC % 1.0 % (0.0-0.9) H 09/24/19 07:07 Seg Neutrophils # Man 4.6 K/mm3 (1.8-7.7) 09/24/19 07:07 Band Neutrophils # 0.0 K/mm3 09/24/19 07:07 Lymphocytes # (Manual) 1.0 K/mm3 (1.2-5.4) L 09/24/19 07:07 Abs React Lymphs (Man) 0.1 K/mm3 09/24/19 07:07 Monocytes # (Manual) 0.9 K/mm3 (0.0-0.8) H 09/24/19 07:07 Eosinophils # (Manual) 0.4 K/mm3 (0.0-0.4) 09/24/19 07:07 Basophils # (Manual) 0.0 K/mm3 (0.0-0.1) 09/24/19 07:07 Metamyelocytes # 0.0 K/mm3 09/24/19 07:07 Myelocytes # 0.0 K/mm3 09/24/19 07:07 Promyelocytes # 0.0 K/mm3 09/24/19 07:07 Blast Cells # 0.0 K/mm3 09/24/19 07:07 WBC Morphology Not Reportable 09/24/19 07:07 Hypersegmented Neuts Not Reportable 09/24/19 07:07 Hyposegmented Neuts Not Reportable 09/24/19 07:07 Hypogranular Neuts Not Reportable 09/24/19 07:07 Smudge Cells Not Reportable 09/24/19 07:07 Toxic Granulation Not Reportable 09/24/19 07:07 Toxic Vacuolation Not Reportable 09/24/19 07:07 Dohle Bodies Not Reportable 09/24/19 07:07 Pelger-Huet Anomaly Not Reportable 09/24/19 07:07 Sara Rods Not Reportable 09/24/19 07:07 Platelet Estimate Consistent w auto 09/24/19 07:07 Clumped Platelets Not Reportable 09/24/19 07:07 Plt Clumps, EDTA Not Reportable 09/24/19 07:07 Large Platelets Not Reportable 09/24/19 07:07 Giant Platelets Not Reportable 09/24/19 07:07 Platelet Satelliting Not Reportable 09/24/19 07:07 Plt Morphology Comment Not Reportable 09/24/19 07:07 RBC Morphology Not Reportable 09/24/19 07:07 Dimorphic RBCs Not Reportable 09/24/19 07:07 Polychromasia Few 09/24/19 07:07 Hypochromasia 1+ 09/24/19 07:07 Poikilocytosis Few 09/24/19 07:07 Anisocytosis 1+ 09/24/19 07:07 Microcytosis Few 09/24/19 07:07 Macrocytosis 1+ 09/24/19 07:07 Spherocytes Not Reportable 09/24/19 07:07 Pappenheimer Bodies Not Reportable 09/24/19 07:07 Sickle Cells Not Reportable 09/24/19 07:07 Target Cells 1+ 09/24/19 07:07 Tear Drop Cells Not Reportable 09/24/19 07:07 Ovalocytes Not Reportable 09/24/19 07:07 Helmet Cells Not Reportable 09/24/19 07:07 Chi-[place]anks Bodies Not Reportable 09/24/19 07:07 [place] Rings Not Reportable 09/24/19 07:07 Raciel Cells Not Reportable 09/24/19 07:07 Bite Cells Not Reportable 09/24/19 07:07 Crenated Cell Not Reportable 09/24/19 07:07 Elliptocytes Not Reportable 09/24/19 07:07 Acanthocytes (Spur) Not Reportable 09/24/19 07:07 Rouleaux Not Reportable 09/24/19 07:07 Hemoglobin C Crystals Not Reportable 09/24/19 07:07 Schistocytes Not Reportable 09/24/19 07:07 Malaria parasites Not Reportable 09/24/19 07:07 Adarsh Bodies Not Reportable 09/24/19 07:07 Hem Pathologist Commnt No 09/24/19 07:07 PT 17.2 Sec. (12.2-14.9) H 09/23/19 17:13 INR 1.42 (0.87-1.13) H 09/23/19 17:13 APTT 30.2 Sec. (24.2-36.6) 09/23/19 16:49 VBG pH 7.480 (7.320-7.420) H 09/23/19 17:13 Sodium 137 mmol/L (137-145) 09/24/19 07:07 Potassium 3.8 mmol/L (3.6-5.0) 09/24/19 07:07 Chloride 100.2 mmol/L (98-107) 09/24/19 07:07 Carbon Dioxide 21 mmol/L (22-30) L 09/24/19 07:07 Anion Gap 20 mmol/L 09/24/19 07:07 BUN 17 mg/dL (7-17) 09/24/19 07:07 Creatinine 3.7 mg/dL (0.7-1.2) H 09/24/19 07:07 Estimated GFR 16 ml/min 09/24/19 07:07 BUN/Creatinine Ratio 5 % 09/24/19 07:07 Glucose 165 mg/dL (65-100) H 09/24/19 07:07 POC Glucose 115 (70-105) H 09/25/19 08:37 Lactic Acid 1.50 mmol/L (0.7-2.0) 09/23/19 17:13 Calcium 8.4 mg/dL (8.4-10.2) 09/24/19 07:07 Magnesium 1.90 mg/dL (1.7-2.3) 09/24/19 07:07 Total Bilirubin 1.10 mg/dL (0.1-1.2) 09/23/19 17:13 AST 20 units/L (5-40) 09/23/19 17:13 ALT 13 units/L (7-56) 09/23/19 17:13 Alkaline Phosphatase 130 units/L (35-129) H 09/23/19 17:13 Troponin T 0.195 ng/mL (0.00-0.029) H* 09/23/19 16:49 Total Protein 7.4 g/dL (6.3-8.2) 09/23/19 17:13 Albumin 2.2 g/dL (3.9-5) L 09/23/19 17:13 Albumin/Globulin Ratio 0.4 % 09/23/19 17:13 Triglycerides 98 mg/dL (2-149) 09/23/19 16:49 Cholesterol 107 mg/dL (50-199) 09/23/19 16:49 LDL Cholesterol Direct 57 mg/dL (50-130) 09/23/19 16:49 HDL Cholesterol 36 mg/dL (40-59) L 09/23/19 16:49 Cholesterol/HDL Ratio 2.97 % 09/23/19 16:49 TSH 3.040 mlU/mL (0.270-4.200) 09/24/19 10:36 Hepatitis A IgM Ab Non-reactive (NonReactive) 09/24/19 10:36 Hep Bs Antigen Non-reactive (Negative) 09/24/19 10:36 Hep B Core IgM Ab Non-reactive (NonReactive) 09/24/19 10:36 Hepatitis C Antibody Non-reactive (NonReactive) 09/24/19 10:36 Active Medications - Current Medications Current Medications: Generic Name Dose Route Start Last Admin Trade Name Freq PRN Reason Stop Dose Admin Acetaminophen 650 mg 09/23/19 19:57 Tylenol PO Q4H PRN Pain MILD(1-3)/Fever >100.5/[place] Albuterol 2.5 mg 09/23/19 20:39 Proventil IH Q4HRT PRN Shortness Of Breath Cholecalciferol 800 unit 09/24/19 10:00 09/25/19 09:28 Vitamin D3 PO 800 unit QDAY WALT Administration Dextrose 50 ml 09/23/19 19:57 D50w (25gm) Syringe IV Q30MIN PRN Hypoglycemia Protocol Diphenhydramine HCl 25 mg 09/23/19 20:06 Benadryl IV Q6H PRN Itching Epoetin Arias 20,000 unit 09/24/19 17:19 Procrit IV AMBER PRN hemodialysis Gabapentin 100 mg 09/24/19 14:00 09/25/19 05:49 Gabapentin PO Not Given Q8HR WALT Heparin Sodium (Porcine) 5,000 unit 09/23/19 22:00 09/25/19 09:31 Heparin SUB-Q 5,000 unit Q12HR WALT Administration Sodium Chloride 100 mls @ 999 mls/hr 09/24/19 17:19 Nacl 0.9% IV AMBER PRN Hypotension Insulin Human Lispro 0 unit 09/23/19 22:00 09/25/19 09:00 Humalog SUB-Q Not Given ACHS [facility] Protocol Lactulose 20 gm 09/23/19 22:00 09/25/19 09:29 Cephulac PO 20 gm BID WALT Administration Metoprolol Tartrate 50 mg 09/24/19 22:00 09/25/19 09:43 Metoprolol PO Not Given BID WALT Nitroglycerin 0.4 mg 09/23/19 20:03 Nitrostat SL .Q5MIN PRN Chest Pain Ondansetron HCl 4 mg 09/23/19 19:57 Zofran IV Q6H PRN Nausea And Vomiting Oxycodone/Acetaminophen 1 tab 09/23/19 19:57 09/25/19 00:42 Percocet 5/325 PO 1 tab Q6H PRN Administration Pain, Moderate (4-6) Pantoprazole Sodium 40 mg 09/24/19 10:00 09/25/19 09:29 Protonix PO 40 mg QDAY WALT Administration Sodium Chloride 10 ml 09/23/19 22:00 09/25/19 09:30 Sodium Chloride Flush Syringe 10 Ml IV 10 ml BID WALT Administration Sodium Chloride 10 ml 09/23/19 19:57 Sodium Chloride Flush Syringe 10 Ml IV PRN PRN LINE FLUSH Nutrition/Malnutrition Assess - Dietary Evaluation Nutrition/Malnutrition Findings: Nutrition Notes Start: 09/24/19 12:56 Freq: Status: Active Protocol: Document 09/24/19 12:56 CT (Rec: 09/24/19 13:08 CT [id number]) Co-Sign 09/24/19 12:56 LP Nutrition Notes Need for Assessment generated from: vocational placement specialist Initial or Follow up Assessment Current Diagnosis Diabetes,Hypertension,Heart Failure Other Pertinent Diagnosis Obesity, ESRD on HD, LE wound, liver disease, PVD, cellulite , e.coli infec Current Diet Renal, cardiac, consistent CHO Labs/Tests POC Glu 173 Pertinent Medications Humalog Lactulose KDur Height 5 ft 3 in Weight 131 kg Celina Body Weight (kg) 52.27 BMI 51.1 Intake Prior to Admission Good Weight Status Morbidly Obese Subjective/Other Information RN consult for Skin Risk of 13 . Pt stated that she ate most of her breakfast and did not eat anything the previous day. Pt requested glucerna shakes , ordered Nepro since pt has ESRD. Pt mother states that she is unsure of pt wt because she always has fluid accumulation. Per physical assessment, pt has trace edema . Burn Absent Trauma Absent GI Symptoms None Food Allergy No Minimum of two criteria No Fluid Accumulation Mild (non-severe) #1 Nutrition Diagnosis Increased nutrient needs ( specify in comment below) Comments: protein Etiology wound healing As Evidenced by Signs and Symptoms LE wound Is patient on ventilator? No Is Patient Ambulatory and/or Out of Bed No REE-([facility]-confined to bed) 2329.416 Kcal/Kg value to use for calculation 14 Approximate Energy Requirements Using 1834 kcal/Kg Calculation Used for Recommendations Kcal/kg Additional Notes Protein needs: 114-137g/kg/day (1.25-1.5 g/kg/day AdBW 91. 6kg) Fluid needs: 8830-1410 ml/day Nutrition Intervention Change Diet Order: Continue Renal, consistent CHO Add Supplement/Snack (indicate name/kcal Add Nepro vanilla BID /protein ) Juan Manuel BID Provides kCal: 850 Provides Protein (gm) 40 Goal #1 Meet >75% of energy and protein needs Goal #2 wound healing Anticipated Discharge Needs: Renal, consistent CHO Follow-Up By: 09/28/19 Additional Comments Follow up for PO/ONS intakes
[2019-09-25] MEDS ORDERED: SODIUM CHLORIDE*PRIMING MACHINE ONLY FOR DIALYSIS MC ONE (15:55)
[2019-09-26] MEDS: oxyCODONE /ACETAMINOPHEN 5-325MG TAB PO PRN ×3 (01:04→21:31)
[2019-09-26] MEDS: GABAPENTIN 100 MG CAP PO SCH ×3 (05:32→21:30)
[2019-09-26] MEDS: INSULIN LISPRO 100 UNIT/ML SUB-Q SCH ×4 (08:00→21:38)
--- NOTE | 2019-09-26 08:56 | Progress Note ---
Assessment and Plan Assessment and plan: 44-year-old woman who was sent to the hospital from vascular surgery office for tachycardia. New onset A.fibrillation with RVR Continue oral rate control medications. Cardiology input appreciated Acute respiratory failure with hypoxia -improving -Continue oxygen supplementation as needed ESRD on HD (M/W/F) -Nephrology following Hx of chronic BLE cellulitis -no indication for antibiotic except for wound care per ID -Wound Care nurse consulted Vascath malfunction -Vascular surgery consulted, for permacath exchange tomorrow Chronically elevated troponin Likely due to ESRD, no chest pain Venous stasis of lower extremities with ulcers Continue wound care DM2 with neuropathy Continue SSI and gabapentin Hypokalemia -Resolved HTN Meds optimized Chronic diastolic heart failure LVEF of 50-55% -No acute exacerbation AOCD -monitor H/H and transfuse for hb<7 -cont epogen during HD Morbid Obesity with BMI 51.2 -Diet and lifestyle modifications recommended Deconditioning -PT consulted DVT prophylaxis with heparin History Interval history: Review of systems Constitutional: No fevers, no malaise, no joint pains CVS: No chest pain, no orthopnea, has edema in lower extremities with some wounds GI: No abdominal pain, no diarrhea, no vomiting, no constipation Respiratory: , no wheezing, no coughing Hospitalist Physical - Physical exam Narrative exam: General.: Appears well, no distress, nontoxic HEENT: Moist mucous membranes, extraocular muscles intact, no lymphadenopathy Neck: supple Cardiac: S1-S2 heard Lungs: clear to auscultation bilaterally Abdomen: soft , nontender, nondistended, bowel sounds positive Extremities: Lower extremity edema with wounds Skin: no rash or lesions Neurologic: no gross focal deficits Psych: calm, and cooperative - Constitutional Vitals: Temp Pulse Resp BP Pulse Ox 98.1 F 102 H 22 94/50 98 09/26/19 08:55 09/26/19 08:55 09/26/19 08:55 09/26/19 08:55 09/26/19 08:55 General appearance: Present: no acute distress Results - Labs CBC & Chem 7: 09/26/19 14:19 09/26/19 14:19 Labs: Laboratory Last Values WBC 6.9 K/mm3 (4.5-11.0) 09/24/19 07:07 RBC 2.65 M/mm3 (3.65-5.03) L 09/24/19 07:07 Hgb 7.7 gm/dl (10.1-14.3) L 09/24/19 07:07 Hct 24.1 % (30.3-42.9) L D 09/24/19 07:07 MCV 91 fl (79-97) 09/24/19 07:07 MCH 29 pg (28-32) 09/24/19 07:07 MCHC 32 % (30-34) 09/24/19 07:07 RDW 25.3 % (13.2-15.2) H 09/24/19 07:07 Plt Count 80 K/mm3 (140-440) L 09/24/19 07:07 Add Manual Diff Complete 09/24/19 07:07 Total Counted 100 09/24/19 07:07 Seg Neuts % (Manual) 66.0 % (40.0-70.0) 09/24/19 07:07 Band Neutrophils % 0 % 09/24/19 07:07 Lymphocytes % (Manual) 14.0 % (13.4-35.0) 09/24/19 07:07 Reactive Lymphs % (Man) 1.0 % 09/24/19 07:07 Monocytes % (Manual) 13.0 % (0.0-7.3) H 09/24/19 07:07 Eosinophils % (Manual) 6.0 % (0.0-4.3) H 09/24/19 07:07 Basophils % (Manual) 0 % (0.0-1.8) 09/24/19 07:07 Metamyelocytes % 0 % 09/24/19 07:07 Myelocytes % 0 % 09/24/19 07:07 Promyelocytes % 0 % 09/24/19 07:07 Blast Cells % 0 % 09/24/19 07:07 Nucleated RBC % 1.0 % (0.0-0.9) H 09/24/19 07:07 Seg Neutrophils # Man 4.6 K/mm3 (1.8-7.7) 09/24/19 07:07 Band Neutrophils # 0.0 K/mm3 09/24/19 07:07 Lymphocytes # (Manual) 1.0 K/mm3 (1.2-5.4) L 09/24/19 07:07 Abs React Lymphs (Man) 0.1 K/mm3 09/24/19 07:07 Monocytes # (Manual) 0.9 K/mm3 (0.0-0.8) H 09/24/19 07:07 Eosinophils # (Manual) 0.4 K/mm3 (0.0-0.4) 09/24/19 07:07 Basophils # (Manual) 0.0 K/mm3 (0.0-0.1) 09/24/19 07:07 Metamyelocytes # 0.0 K/mm3 09/24/19 07:07 Myelocytes # 0.0 K/mm3 09/24/19 07:07 Promyelocytes # 0.0 K/mm3 09/24/19 07:07 Blast Cells # 0.0 K/mm3 09/24/19 07:07 WBC Morphology Not Reportable 09/24/19 07:07 Hypersegmented Neuts Not Reportable 09/24/19 07:07 Hyposegmented Neuts Not Reportable 09/24/19 07:07 Hypogranular Neuts Not Reportable 09/24/19 07:07 Smudge Cells Not Reportable 09/24/19 07:07 Toxic Granulation Not Reportable 09/24/19 07:07 Toxic Vacuolation Not Reportable 09/24/19 07:07 Dohle Bodies Not Reportable 09/24/19 07:07 Pelger-Huet Anomaly Not Reportable 09/24/19 07:07 Sara Rods Not Reportable 09/24/19 07:07 Platelet Estimate Consistent w auto 09/24/19 07:07 Clumped Platelets Not Reportable 09/24/19 07:07 Plt Clumps, EDTA Not Reportable 09/24/19 07:07 Large Platelets Not Reportable 09/24/19 07:07 Giant Platelets Not Reportable 09/24/19 07:07 Platelet Satelliting Not Reportable 09/24/19 07:07 Plt Morphology Comment Not Reportable 09/24/19 07:07 RBC Morphology Not Reportable 09/24/19 07:07 Dimorphic RBCs Not Reportable 09/24/19 07:07 Polychromasia Few 09/24/19 07:07 Hypochromasia 1+ 09/24/19 07:07 Poikilocytosis Few 09/24/19 07:07 Anisocytosis 1+ 09/24/19 07:07 Microcytosis Few 09/24/19 07:07 Macrocytosis 1+ 09/24/19 07:07 Spherocytes Not Reportable 09/24/19 07:07 Pappenheimer Bodies Not Reportable 09/24/19 07:07 Sickle Cells Not Reportable 09/24/19 07:07 Target Cells 1+ 09/24/19 07:07 Tear Drop Cells Not Reportable 09/24/19 07:07 Ovalocytes Not Reportable 09/24/19 07:07 Helmet Cells Not Reportable 09/24/19 07:07 [place] Bodies Not Reportable 09/24/19 07:07 [place] Rings Not Reportable 09/24/19 07:07 Aroda Cells Not Reportable 09/24/19 07:07 Bite Cells Not Reportable 09/24/19 07:07 Crenated Cell Not Reportable 09/24/19 07:07 Elliptocytes Not Reportable 09/24/19 07:07 Acanthocytes (Spur) Not Reportable 09/24/19 07:07 Rouleaux Not Reportable 09/24/19 07:07 Hemoglobin C Crystals Not Reportable 09/24/19 07:07 Schistocytes Not Reportable 09/24/19 07:07 Malaria parasites Not Reportable 09/24/19 07:07 Adarsh Bodies Not Reportable 09/24/19 07:07 Hem Pathologist Commnt No 09/24/19 07:07 PT 17.2 Sec. (12.2-14.9) H 09/23/19 17:13 INR 1.42 (0.87-1.13) H 09/23/19 17:13 APTT 30.2 Sec. (24.2-36.6) 09/23/19 16:49 VBG pH 7.480 (7.320-7.420) H 09/23/19 17:13 Sodium 137 mmol/L (137-145) 09/24/19 07:07 Potassium 3.8 mmol/L (3.6-5.0) 09/24/19 07:07 Chloride 100.2 mmol/L (98-107) 09/24/19 07:07 Carbon Dioxide 21 mmol/L (22-30) L 09/24/19 07:07 Anion Gap 20 mmol/L 09/24/19 07:07 BUN 17 mg/dL (7-17) 09/24/19 07:07 Creatinine 3.7 mg/dL (0.7-1.2) H 09/24/19 07:07 Estimated GFR 16 ml/min 09/24/19 07:07 BUN/Creatinine Ratio 5 % 09/24/19 07:07 Glucose 165 mg/dL (65-100) H 09/24/19 07:07 POC Glucose 125 (70-105) H 09/26/19 08:41 Lactic Acid 1.50 mmol/L (0.7-2.0) 09/23/19 17:13 Calcium 8.4 mg/dL (8.4-10.2) 09/24/19 07:07 Magnesium 1.90 mg/dL (1.7-2.3) 09/24/19 07:07 Total Bilirubin 1.10 mg/dL (0.1-1.2) 09/23/19 17:13 AST 20 units/L (5-40) 09/23/19 17:13 ALT 13 units/L (7-56) 09/23/19 17:13 Alkaline Phosphatase 130 units/L (35-129) H 09/23/19 17:13 Troponin T 0.195 ng/mL (0.00-0.029) H* 09/23/19 16:49 Total Protein 7.4 g/dL (6.3-8.2) 09/23/19 17:13 Albumin 2.2 g/dL (3.9-5) L 09/23/19 17:13 Albumin/Globulin Ratio 0.4 % 09/23/19 17:13 Triglycerides 98 mg/dL (2-149) 09/23/19 16:49 Cholesterol 107 mg/dL (50-199) 09/23/19 16:49 LDL Cholesterol Direct 57 mg/dL (50-130) 09/23/19 16:49 HDL Cholesterol 36 mg/dL (40-59) L 09/23/19 16:49 Cholesterol/HDL Ratio 2.97 % 09/23/19 16:49 TSH 3.040 mlU/mL (0.270-4.200) 09/24/19 10:36 Hepatitis A IgM Ab Non-reactive (NonReactive) 09/24/19 10:36 Hep Bs Antigen Non-reactive (Negative) 09/24/19 10:36 Hep B Core IgM Ab Non-reactive (NonReactive) 09/24/19 10:36 Hepatitis C Antibody Non-reactive (NonReactive) 09/24/19 10:36 Active Medications - Current Medications Current Medications: Generic Name Dose Route Start Last Admin Trade Name Freq PRN Reason Stop Dose Admin Acetaminophen 650 mg 09/23/19 19:57 Tylenol PO Q4H PRN Pain MILD(1-3)/Fever >100.5/[place] Albuterol 2.5 mg 09/23/19 20:39 Proventil IH Q4HRT PRN Shortness Of Breath Cholecalciferol 800 unit 09/24/19 10:00 09/25/19 09:28 Vitamin D3 PO 800 unit QDAY WALT Administration Dextrose 50 ml 09/23/19 19:57 D50w (25gm) Syringe IV Q30MIN PRN Hypoglycemia Protocol Diphenhydramine HCl 25 mg 09/23/19 20:06 Benadryl IV Q6H PRN Itching Epoetin Arias 20,000 unit 09/24/19 17:19 Procrit IV AMBER PRN hemodialysis Gabapentin 100 mg 09/24/19 14:00 09/26/19 05:32 Gabapentin PO 100 mg Q8HR WALT Administration Heparin Sodium (Porcine) 5,000 unit 09/23/19 22:00 09/25/19 21:49 Heparin SUB-Q 5,000 unit Q12HR WALT Administration Sodium Chloride 100 mls @ 999 mls/hr 09/24/19 17:19 Nacl 0.9% IV AMBER PRN Hypotension Insulin Human Lispro 0 unit 09/23/19 22:00 09/25/19 22:11 Humalog SUB-Q 2 unit ACHS WALT Administration Protocol Lactulose 20 gm 09/23/19 22:00 09/25/19 21:48 Cephulac PO Not Given BID WALT Metoprolol Tartrate 25 mg 09/25/19 13:36 09/25/19 21:48 Metoprolol PO 25 mg BID WALT Administration Nitroglycerin 0.4 mg 09/23/19 20:03 Nitrostat SL .Q5MIN PRN Chest Pain Ondansetron HCl 4 mg 09/23/19 19:57 Zofran IV Q6H PRN Nausea And Vomiting Oxycodone/Acetaminophen 1 tab 09/23/19 19:57 09/26/19 01:04 Percocet 5/325 PO 1 tab Q6H PRN Administration Pain, Moderate (4-6) Pantoprazole Sodium 40 mg 09/24/19 10:00 09/25/19 09:29 Protonix PO 40 mg QDAY WALT Administration Sodium Chloride 10 ml 09/23/19 22:00 09/25/19 21:49 Sodium Chloride Flush Syringe 10 Ml IV 10 ml BID WALT Administration Sodium Chloride 10 ml 09/23/19 19:57 Sodium Chloride Flush Syringe 10 Ml IV PRN PRN LINE FLUSH Nutrition/Malnutrition Assess - Dietary Evaluation Nutrition/Malnutrition Findings: Nutrition Notes Start: 09/24/19 12:56 Freq: Status: Active Protocol: Document 09/24/19 12:56 CT (Rec: 09/24/19 13:08 CT [id number]) Co-Sign 09/24/19 12:56 LP Nutrition Notes Need for Assessment generated from: outpatient physical therapist assistant Initial or Follow up Assessment Current Diagnosis Diabetes,Hypertension,Heart Failure Other Pertinent Diagnosis Obesity, ESRD on HD, LE wound, liver disease, PVD, cellulite , e.coli infec Current Diet Renal, cardiac, consistent CHO Labs/Tests POC Glu 173 Pertinent Medications Humalog Lactulose KDur Height 5 ft 3 in Weight 131 kg [place] Body Weight (kg) 52.27 BMI 51.1 Intake Prior to Admission Good Weight Status Morbidly Obese Subjective/Other Information RN consult for Skin Risk of 13 . Pt stated that she ate most of her breakfast and did not eat anything the previous day. Pt requested glucerna shakes , ordered Nepro since pt has ESRD. Pt mother states that she is unsure of pt wt because she always has fluid accumulation. Per physical assessment, pt has trace edema . Burn Absent Trauma Absent GI Symptoms None Food Allergy No Minimum of two criteria No Fluid Accumulation Mild (non-severe) #1 Nutrition Diagnosis Increased nutrient needs ( specify in comment below) Comments: protein Etiology wound healing As Evidenced by Signs and Symptoms LE wound Is patient on ventilator? No Is Patient Ambulatory and/or Out of Bed No REE-([facility]-confined to bed) 2329.416 Kcal/Kg value to use for calculation 14 Approximate Energy Requirements Using 1834 kcal/Kg Calculation Used for Recommendations Kcal/kg Additional Notes Protein needs: 114-137g/kg/day (1.25-1.5 g/kg/day AdBW 91. 6kg) Fluid needs: 9143-8550 ml/day Nutrition Intervention Change Diet Order: Continue Renal, consistent CHO Add Supplement/Snack (indicate name/kcal Add Nepro vanilla BID /protein ) Juan Manuel BID Provides kCal: 850 Provides Protein (gm) 40 Goal #1 Meet >75% of energy and protein needs Goal #2 wound healing Anticipated Discharge Needs: Renal, consistent CHO Follow-Up By: 09/28/19 Additional Comments Follow up for PO/ONS intakes
[2019-09-26] MEDS: METOPROLOL TARTRATE 50 MG TAB PO SCH (10:00)
[2019-09-26] MEDS: PANTOPRAZOLE 40 MG TAB PO SCH (10:01)
[2019-09-26] MEDS: CHOLECALCIFEROL (VIT D3) 400 UNIT TAB PO SCH (10:01)
[2019-09-26] MEDS: HEPARIN 5,000 UNIT/1 ML VIAL SUB-Q SCH ×2 (10:02→21:31)
--- NOTE | 2019-09-26 13:06 | Progress Note ---
Assessment and Plan Cardiac status is improving. She remains mildly tachycardic, but is likely physiologic. Will continue to hold metoprolol d/t borderline blood pressures. If pressures improve and remains stable, will consider resuming at lower dose. The patient has been seen in conjunction with Dr. Goodson, who agrees with the assessment and plan. - Patient Problems (1) Sinus tachycardia Current Visit: Yes Status: Acute (2) End stage renal disease on dialysis Current Visit: Yes Status: Chronic (3) LVH (left ventricular hypertrophy) Current Visit: Yes Status: Chronic (4) Obesity Current Visit: Yes Status: Chronic (5) Anemia Current Visit: Yes Status: Chronic (6) HTN (hypertension) Current Visit: Yes Status: Chronic Qualifiers: Hypertension type: essential hypertension Qualified Code(s): I10 - Essential (primary) hypertension (7) NSTEMI (non-ST elevated myocardial infarction) Current Visit: Yes Status: Acute (8) T2DM (type 2 diabetes mellitus) Current Visit: No Status: Chronic (9) Bilateral lower leg cellulitis Current Visit: No Status: Suspected Subjective Date of service: 09/26/19 Interval history: The patient is lying in bed in NAD. No complaints. BP still somewhat labile. SR in 80s on telemetry. Objective Last Vital Signs Temp 98.1 F 09/26/19 08:55 Pulse 102 H 09/26/19 08:55 Resp 22 09/26/19 08:55 BP 94/50 09/26/19 08:55 Pulse Ox 98 09/26/19 08:55 - Physical Examination General: No Apparent Distress HEENT: Positive: PERRL, Normocephaly, Mucus Membranes Moist Neck: Positive: neck supple, trachea midline Cardiac: Positive: Regular Rhythm Lungs: Positive: Decreased Breath Sounds Neuro: Positive: Grossly Intact Abdomen: Positive: Unremarkable. Negative: Tender /Rectal: Other (deferred) Musculoskeletal: Decreased Range of Motion Extremities: Present: +2 Edema (BLE, chronic) - Imaging and Cardiology EKG: report reviewed, image reviewed Echo: report reviewed (06/2019 showed EF 50-55%, mod LVH, septal flattening of IV septum c/w RV volume overload, RV systolic function mod reduced, catheter in RA, mod TR, RVSP 28mmHg. ) - Telemetry EKG Rhythm: Sinus Rhythm - EKG Sinus rhythms and dysrhythmias: sinus tachycardia
[2019-09-26 14:57] LABS: Calcium 8.3 mg/dL (8.4-10.2)
[2019-09-26 15:22] LABS: Hematocrit 27.6 % (30.3-42.9); Hemoglobin 8.5 gm/dl (10.1-14.3); Mean Corpuscular HGB Conc 31 % (30-34); Mean Corpuscular Volume 92 fl (79-97); Platelet Count 180 K/mm3 (140-440); Red Blood Count 2.99 M/mm3 (3.65-5.03)
[2019-09-26] MEDS: LACTULOSE 20 GM/30 ML ORAL LIQD PO SCH ×2 (15:39→21:30)
[2019-09-26] MEDS ORDERED: SODIUM CHLORIDE 0.9% 100 ML IV PRN (16:20)
--- NOTE | 2019-09-26 16:22 | Progress Note ---
Assessment and Plan Assessment * End-stage renal disease * Malfunctioning/dislodged permcath * Sinus tachycardia * Calciphylaxis --Left foot wound - GNR * Anemia secondary to ESRD * Medical noncompliance Plan: * Patient is s/p HD yesterday * Will resume MWF schedule tomorrow following permcath exchange * UF as tolerated * Cardiology recommendations noted - beta kiara initiated * ID following - abx per ID * Epogen TIW prn * Renal diet * Monitor lytes and volume status closely * Dose medications for renal function * Patient refused permcath exchange on Friday despite vascular surgery attempt to explain need for exchange. Permcath is not safe to use in an outpatient setting as cuff is exposed; she is not cleared for d/c until permcath exchanged. She agrees to permcath exchange tomorrow * NPO after MN Subjective Date of service: 09/26/19 Interval history: Patient has no complaints today. Understands need for permcath exchange in AM and agrees to procedure. Objective - Vital Signs Vital signs: Vital Signs - 12hr 09/26/19 09/26/19 09/26/19 04:25 08:00 08:55 Temperature 97.4 F L 98.1 F Pulse Rate 90 104 H 102 H Respiratory 20 22 Rate Blood Pressure 111/56 Blood Pressure 94/50 [Right] O2 Sat by Pulse 98 98 Oximetry - General Appearance General appearance: well-developed, well-nourished EENT: ATNC Respiratory: Present: Decreased Breath Sounds Cardiology: tachycardia, S1S2 Gastrointestinal: obese Neurologic: alert and oriented x3 Musculoskeletal: other (bilateral LE bandaged) Psychiatric: cooperative - Lab 09/26/19 14:19 09/26/19 14:19 Most recent lab results Calcium 8.3 mg/dL (8.4-10.2) L 09/26/19 14: Magnesium 1.90 mg/dL (1.7-2.3) 09/24/19 07:07 Medications & Allergies - Medications Allergies/Adverse Reactions: Allergies No Known Allergies Allergy (Verified 03/12/19 12:23) Home Medications: Home Medications Medication Instructions Recorded Confirmed Last Taken Type Ergocalciferol(Vitamin D2)(Nf) 800 unit PO DAILY 07/06/19 09/23/19 1 Day Ago History [Vitamin D (Nf)] ~08/12/19 cloNIDine [Catapres] 0.2 mg PO BID 07/06/19 09/23/19 08/28/19 22:00 History Pantoprazole [Protonix TAB] 40 mg PO QDAY #30 tablet 07/14/19 09/23/19 08/13/19 Rx Insulin NPH/Regular [NovoLIN 70/30] 5 unit SUB-Q BIDDIAB units 08/13/19 09/23/19 Unknown Rx Insulin NPH/Regular [NovoLIN 70/30] 5 unit SUB-Q BIDDIAB #10 ml 08/13/19 09/23/19 Unknown Rx Lactulose [Cephulac] 20 gm PO BID oral.liqd 08/13/19 09/23/19 Unknown Rx ALBUTEROL NEB's [Proventil 0.083% 2.5 mg IH Q3HRT PRN #30 nebu 09/02/19 09/23/19 Unknown Rx NEBS] Acetaminophen [Acetaminophen TAB] 650 mg PO Q4H PRN tablet 09/13/19 09/23/19 Unknown Rx Active Medications: Generic Name Dose Route Start Last Admin Trade Name Freq PRN Reason Stop Dose Admin Acetaminophen 650 mg 09/23/19 19:57 Tylenol PO Q4H PRN Pain MILD(1-3)/Fever >100.5/[place] Albuterol 2.5 mg 09/23/19 20:39 Proventil IH Q4HRT PRN Shortness Of Breath Cholecalciferol 800 unit 09/24/19 10:00 09/26/19 10:01 Vitamin D3 PO 800 unit QDAY WALT Administration Dextrose 50 ml 09/23/19 19:57 D50w (25gm) Syringe IV Q30MIN PRN Hypoglycemia Protocol Diphenhydramine HCl 25 mg 09/23/19 20:06 Benadryl IV Q6H PRN Itching Epoetin Arias 20,000 unit 09/24/19 17:19 Procrit IV AMBER PRN hemodialysis Gabapentin 100 mg 09/24/19 14:00 09/26/19 15:40 Gabapentin PO Not Given Q8HR WALT Heparin Sodium (Porcine) 5,000 unit 09/23/19 22:00 09/26/19 10:02 Heparin SUB-Q 5,000 unit Q12HR WALT Administration Sodium Chloride 100 mls @ 999 mls/hr 09/24/19 17:19 Nacl 0.9% IV AMBER PRN Hypotension Insulin Human Lispro 0 unit 09/23/19 22:00 09/26/19 12:00 Humalog SUB-Q Not Given ACHS [facility] Protocol Lactulose 20 gm 09/23/19 22:00 09/26/19 15:39 Cephulac PO Not Given BID [facility] Metoprolol Tartrate 25 mg 09/25/19 13:36 09/26/19 10:00 Metoprolol PO Not Given BID [facility] Nitroglycerin 0.4 mg 09/23/19 20:03 Nitrostat SL .Q5MIN PRN Chest Pain Ondansetron HCl 4 mg 09/23/19 19:57 Zofran IV Q6H PRN Nausea And Vomiting Oxycodone/Acetaminophen 1 tab 09/23/19 19:57 09/26/19 10:01 Percocet 5/325 PO 1 tab Q6H PRN Administration Pain, Moderate (4-6) Pantoprazole Sodium 40 mg 09/24/19 10:00 09/26/19 10:01 Protonix PO 40 mg QDAY [facility] Administration Sodium Chloride 10 ml 09/23/19 22:00 09/26/19 16:16 Sodium Chloride Flush Syringe 10 Ml IV Not Given BID WALT Sodium Chloride 10 ml 09/23/19 19:57 Sodium Chloride Flush Syringe 10 Ml IV PRN PRN LINE FLUSH
--- NOTE | 2019-09-26 22:44 | Event Note ---
Date: 09/26/19 NPO after MN except sips of water with meds Permcath exchange for tomorrow if patient agreeable
[2019-09-27] MEDS: GABAPENTIN 100 MG CAP PO SCH ×2 (05:26→19:07)
[2019-09-27] MEDS: oxyCODONE /ACETAMINOPHEN 5-325MG TAB PO PRN ×2 (05:27→19:06)
[2019-09-27] MEDS: INSULIN LISPRO 100 UNIT/ML SUB-Q SCH ×3 (07:30→16:30)
[2019-09-27] MEDS: HEPARIN 5,000 UNIT/1 ML VIAL SUB-Q SCH (10:00)
[2019-09-27] MEDS ORDERED: SODIUM CHLORIDE 0.9% 500 ML 500 ML IV SCH (11:00)
--- NOTE | 2019-09-27 11:04 | Discharge Summary ---
Providers - Providers Date of Admission: 09/23/19 19:57 Attending physician: LANG VILLALOBOS MD 09/23/19 19:53 Consult to Physician [CONS] Routine Comment: Consulting Provider: ANG AMAYA Physician Instructions: Reason For Exam: ST, elevated troponin, hx chf & esrd 09/23/19 19:57 Consult to Physician [CONS] Routine Comment: Consulting Provider: JIMENA FONTAINE Physician Instructions: Reason For Exam: esrd on HD Consult to Physician [CONS] Routine Comment: Consulting Provider: LVIIER ALVARADO Physician Instructions: Reason For Exam: hx ecoli from chronic foot wound 09/23/19 20:02 Consult to Physician [CONS] Routine Comment: Consulting Provider: PAGE RODRIGUEZ Physician Instructions: Reason For Exam: hd access est pt 09/23/19 20:04 Consult to Wound/ET Nurse [CONS] Routine Reason For Exam: wound eval 09/24/19 12:21 Physical Therapy Evaluation and Treat [CONS] Routine Comment: Reason For Exam: generalized weakness Primary care physician: ALKA EVANS Hospitalization Condition: Stable Hospital course: 44-year-old woman who was sent to the hospital from vascular surgery office for tachycardia. New onset A.fibrillation with RVR Continue oral rate control medications. Cardiology input appreciated Acute respiratory failure with hypoxia -improving -Continue oxygen supplementation as needed ESRD on HD (M/W/) -Nephrology following Hx of chronic BLE cellulitis -no indication for antibiotic except for wound care per ID -Wound Care nurse consulted Vascath malfunction Vascular input appreciated, status post permacath exchange Chronically elevated troponin Likely due to ESRD, no chest pain Venous stasis of lower extremities with ulcers Continue wound care DM2 with neuropathy Continue SSI and gabapentin Hypokalemia -Resolved HTN Meds optimized Chronic diastolic heart failure LVEF of 50-55% -No acute exacerbation AOCD -monitor H/H and transfuse for hb<7 -cont epogen during HD Morbid Obesity with BMI 51.2 -Diet and lifestyle modifications recommended Deconditioning -PT consulted DVT prophylaxis with heparin Disposition: DC/[place]-06 HOME [facility] Time spent for discharge: 33 mins Core Measure Documentation - Palliative Care Palliative Care/ Comfort Measures: Not Applicable - Core Measures Any of the following diagnoses?: none Exam - Constitutional Vitals: Temp Pulse Resp BP Pulse Ox 98.5 F 76 17 142/79 100 12/09/19 04:29 09/27/19 04:05 09/27/19 05:27 09/27/19 04:29 09/27/19 04:05 General appearance: Present: no acute distress, well-nourished - EENT Eyes: Present: PERRL ENT: hearing intact, clear oral mucosa - Neck Neck: Present: supple, normal ROM - Respiratory Respiratory effort: normal Respiratory: bilateral: CTA - Cardiovascular Heart Sounds: Present: S1 & S2. Absent: rub, click - Extremities Extremities: pulses symmetrical, No edema Peripheral Pulses: within normal limits - Abdominal General gastrointestinal: Present: soft, non-tender, non-distended, normal bowel sounds Female genitourinary: Present: normal - Integumentary Integumentary: Present: clear, warm, dry (LE wounds) - Musculoskeletal Musculoskeletal: gait normal, strength equal bilaterally - Psychiatric Psychiatric: appropriate mood/affect, intact judgment & insight - Neurologic Neurologic: CNII-XII intact, moves all extremities Plan Follow up with: PRIMARY CARE, [Referring] - 3-5 Days Prescriptions: Gabapentin 100 mg PO Q8HR #90 capsule oxyCODONE /ACETAMINOPHEN [Percocet 5/325 mg] 1 tab PO Q6H PRN #14 tablet PRN Reason: Pain, Moderate (4-6) Other Discharge Orders: Post Op Surgical Shoe (Amb) Location: None Selected
--- NOTE | 2019-09-27 11:06 | Progress Note ---
Hospitalist Physical - Constitutional Vitals: Temp Pulse Resp BP Pulse Ox 98.5 F 76 17 142/79 100 09/27/19 04:29 09/27/19 04:05 09/27/19 05:27 09/27/19 04:29 09/27/19 04:05 General appearance: Present: no acute distress, well-nourished Results - Labs CBC & Chem 7: 09/26/19 14:19 09/26/19 14:19 Labs: Laboratory Last Values WBC 9.1 K/mm3 (4.5-11.0) 09/26/19 14:19 RBC 2.99 M/mm3 (3.65-5.03) L 09/26/19 14: Hgb 8.5 gm/dl (10.1-14.3) L 09/26/19 14: Hct 27.6 % (30.3-42.9) L 09/26/19 14:19 MCV 92 fl (79-97) 09/26/19 14:19 MCH 28 pg (28-32) 09/26/19 14:19 MCHC 31 % (30-34) 09/26/19 14:19 RDW 25.0 % (13.2-15.2) H 09/26/19 14:19 Plt Count 180 K/mm3 (140-440) D 09/26/19 14:19 Add Manual Diff Complete 09/24/19 07:07 Total Counted 100 09/24/19 07:07 Seg Neuts % (Manual) 66.0 % (40.0-70.0) 09/24/19 07:07 Band Neutrophils % 0 % 09/24/19 07:07 Lymphocytes % (Manual) 14.0 % (13.4-35.0) 09/24/19 07:07 Reactive Lymphs % (Man) 1.0 % 09/24/19 07:07 Monocytes % (Manual) 13.0 % (0.0-7.3) H 09/24/19 07:07 Eosinophils % (Manual) 6.0 % (0.0-4.3) H 09/24/19 07:07 Basophils % (Manual) 0 % (0.0-1.8) 09/24/19 07:07 Metamyelocytes % 0 % 09/24/19 07:07 Myelocytes % 0 % 09/24/19 07:07 Promyelocytes % 0 % 09/24/19 07:07 Blast Cells % 0 % 09/24/19 07:07 Nucleated RBC % 1.0 % (0.0-0.9) H 09/24/19 07:07 Seg Neutrophils # Man 4.6 K/mm3 (1.8-7.7) 09/24/19 07:07 Band Neutrophils # 0.0 K/mm3 09/24/19 07:07 Lymphocytes # (Manual) 1.0 K/mm3 (1.2-5.4) L 09/24/19 07:07 Abs React Lymphs (Man) 0.1 K/mm3 09/24/19 07:07 Monocytes # (Manual) 0.9 K/mm3 (0.0-0.8) H 09/24/19 07:07 Eosinophils # (Manual) 0.4 K/mm3 (0.0-0.4) 09/24/19 07:07 Basophils # (Manual) 0.0 K/mm3 (0.0-0.1) 09/24/19 07:07 Metamyelocytes # 0.0 K/mm3 09/24/19 07:07 Myelocytes # 0.0 K/mm3 09/24/19 07:07 Promyelocytes # 0.0 K/mm3 09/24/19 07:07 Blast Cells # 0.0 K/mm3 09/24/19 07:07 WBC Morphology Not Reportable 09/24/19 07:07 Hypersegmented Neuts Not Reportable 09/24/19 07:07 Hyposegmented Neuts Not Reportable 09/24/19 07:07 Hypogranular Neuts Not Reportable 09/24/19 07:07 Smudge Cells Not Reportable 09/24/19 07:07 Toxic Granulation Not Reportable 09/24/19 07:07 Toxic Vacuolation Not Reportable 09/24/19 07:07 Dohle Bodies Not Reportable 09/24/19 07:07 Pelger-Huet Anomaly Not Reportable 09/24/19 07:07 Sara Rods Not Reportable 09/24/19 07:07 Platelet Estimate Consistent w auto 09/24/19 07:07 Clumped Platelets Not Reportable 09/24/19 07:07 Plt Clumps, EDTA Not Reportable 09/24/19 07:07 Large Platelets Not Reportable 09/24/19 07:07 Giant Platelets Not Reportable 09/24/19 07:07 Platelet Satelliting Not Reportable 09/24/19 07:07 Plt Morphology Comment Not Reportable 09/24/19 07:07 RBC Morphology Not Reportable 09/24/19 07:07 Dimorphic RBCs Not Reportable 09/24/19 07:07 Polychromasia Few 09/24/19 07:07 Hypochromasia 1+ 09/24/19 07:07 Poikilocytosis Few 09/24/19 07:07 Anisocytosis 1+ 09/24/19 07:07 Microcytosis Few 09/24/19 07:07 Macrocytosis 1+ 09/24/19 07:07 Spherocytes Not Reportable 09/24/19 07:07 Pappenheimer Bodies Not Reportable 09/24/19 07:07 Sickle Cells Not Reportable 09/24/19 07:07 Target Cells 1+ 09/24/19 07:07 Tear Drop Cells Not Reportable 09/24/19 07:07 Ovalocytes Not Reportable 09/24/19 07:07 Helmet Cells Not Reportable 09/24/19 07:07 [place] Bodies Not Reportable 09/24/19 07:07 [place] Rings Not Reportable 09/24/19 07:07 Raciel Cells Not Reportable 09/24/19 07:07 Bite Cells Not Reportable 09/24/19 07:07 Crenated Cell Not Reportable 09/24/19 07:07 Elliptocytes Not Reportable 09/24/19 07:07 Acanthocytes (Spur) Not Reportable 09/24/19 07:07 Rouleaux Not Reportable 09/24/19 07:07 Hemoglobin C Crystals Not Reportable 09/24/19 07:07 Schistocytes Not Reportable 09/24/19 07:07 Malaria parasites Not Reportable 09/24/19 07:07 Adarsh Bodies Not Reportable 09/24/19 07:07 Hem Pathologist Commnt No 09/24/19 07:07 PT 17.2 Sec. (12.2-14.9) H 09/23/19 17:13 INR 1.42 (0.87-1.13) H 09/23/19 17:13 APTT 30.2 Sec. (24.2-36.6) 09/23/19 16:49 VBG pH 7.480 (7.320-7.420) H 09/23/19 17:13 Sodium 139 mmol/L (137-145) 09/26/19 14:19 Potassium 3.6 mmol/L (3.6-5.0) 09/26/19 14:19 Chloride 99.5 mmol/L (98-107) 09/26/19 14:19 Carbon Dioxide 24 mmol/L (22-30) 09/26/19 14:19 Anion Gap 19 mmol/L 09/26/19 14:19 BUN 18 mg/dL (7-17) H 09/26/19 14:19 Creatinine 3.8 mg/dL (0.7-1.2) H 09/26/19 14:19 Estimated GFR 16 ml/min 09/26/19 14:19 BUN/Creatinine Ratio 5 % 09/26/19 14:19 Glucose 129 mg/dL (65-100) H 09/26/19 14:19 POC Glucose 117 (70-105) H 09/27/19 08:17 Lactic Acid 1.50 mmol/L (0.7-2.0) 09/23/19 17:13 Calcium 8.3 mg/dL (8.4-10.2) L 09/26/19 14:19 Magnesium 1.90 mg/dL (1.7-2.3) 09/24/19 07:07 Total Bilirubin 1.10 mg/dL (0.1-1.2) 09/23/19 17:13 AST 20 units/L (5-40) 09/23/19 17:13 ALT 13 units/L (7-56) 09/23/19 17:13 Alkaline Phosphatase 130 units/L (35-129) H 09/23/19 17:13 Troponin T 0.195 ng/mL (0.00-0.029) H* 09/23/19 16:49 Total Protein 7.4 g/dL (6.3-8.2) 09/23/19 17:13 Albumin 2.2 g/dL (3.9-5) L 09/23/19 17:13 Albumin/Globulin Ratio 0.4 % 09/23/19 17:13 Triglycerides 98 mg/dL (2-149) 09/23/19 16:49 Cholesterol 107 mg/dL (50-199) 09/23/19 16:49 LDL Cholesterol Direct 57 mg/dL (50-130) 09/23/19 16:49 HDL Cholesterol 36 mg/dL (40-59) L 09/23/19 16:49 Cholesterol/HDL Ratio 2.97 % 09/23/19 16:49 TSH 3.040 mlU/mL (0.270-4.200) 09/24/19 10:36 Hepatitis A IgM Ab Non-reactive (NonReactive) 09/24/19 10:36 Hep Bs Antigen Non-reactive (Negative) 09/24/19 10:36 Hep B Core IgM Ab Non-reactive (NonReactive) 09/24/19 10:36 Hepatitis C Antibody Non-reactive (NonReactive) 09/24/19 10:36 Active Medications - Current Medications Current Medications: Generic Name Dose Route Start Last Admin Trade Name Freq PRN Reason Stop Dose Admin Acetaminophen 650 mg 09/23/19 19:57 Tylenol PO Q4H PRN Pain MILD(1-3)/Fever >100.5/[place] Albuterol 2.5 mg 09/23/19 20:39 Proventil IH Q4HRT PRN Shortness Of Breath Cholecalciferol 800 unit 09/24/19 10:00 09/26/19 10:01 Vitamin D3 PO 800 unit QDAY WALT Administration Dextrose 50 ml 09/23/19 19:57 D50w (25gm) Syringe IV Q30MIN PRN Hypoglycemia Protocol Diphenhydramine HCl 25 mg 09/23/19 20:06 Benadryl IV Q6H PRN Itching Epoetin Arias 20,000 unit 09/24/19 17:19 Procrit IV AMBER PRN hemodialysis Gabapentin 100 mg 09/24/19 14:00 09/27/19 05:26 Gabapentin PO 100 mg Q8HR WALT Administration Heparin Sodium (Porcine) 5,000 unit 09/23/19 22:00 09/26/19 21:31 Heparin SUB-Q 5,000 unit Q12HR WALT Administration Sodium Chloride 100 mls @ 999 mls/hr 09/24/19 17:19 Nacl 0.9% IV AMBER PRN Hypotension Sodium Chloride 100 mls @ 999 mls/hr 09/26/19 16:20 Nacl 0.9% IV AMBER PRN Hypotension Sodium Chloride 500 mls @ 50 mls/hr 09/27/19 11:00 Nacl 0.9% 500 Ml IV DIRECT WALT Insulin Human Lispro 0 unit 09/23/19 22:00 09/27/19 07:30 Humalog SUB-Q Not Given ACHS [facility] Protocol Lactulose 20 gm 09/23/19 22:00 09/26/19 21:30 Cephulac PO 20 gm BID WALT Administration Nitroglycerin 0.4 mg 09/23/19 20:03 Nitrostat SL .Q5MIN PRN Chest Pain Ondansetron HCl 4 mg 09/23/19 19:57 Zofran IV Q6H PRN Nausea And Vomiting Oxycodone/Acetaminophen 1 tab 09/23/19 19:57 09/27/19 05:27 Percocet 5/325 PO 1 tab Q6H PRN Administration Pain, Moderate (4-6) Pantoprazole Sodium 40 mg 09/24/19 10:00 09/26/19 10:01 Protonix PO 40 mg QDAY WALT Administration Sodium Chloride 10 ml 09/23/19 22:00 09/26/19 21:33 Sodium Chloride Flush Syringe 10 Ml IV 10 ml BID WALT Administration Sodium Chloride 10 ml 09/23/19 19:57 Sodium Chloride Flush Syringe 10 Ml IV PRN PRN LINE FLUSH Nutrition/Malnutrition Assess - Dietary Evaluation Nutrition/Malnutrition Findings: Nutrition Notes Start: 09/24/19 12:5 6 Freq: Status: Active Protocol: Document 09/24/19 12:56 CT (Rec: 09/24/19 13:08 CT [id number]) Co-Sign 09/24/19 12:56 LP Nutrition Notes 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 Pt stated that she ate most of her breakfast and did not eat anything the previous day. Pt requested glucerna shakes , ordered Nepro since pt has ESRD. Pt mother states that she is unsure of pt wt because she always has fluid accumulation. Per physical assessment, pt has trace edema . Burn Absent Trauma Absent GI Symptoms None Food Allergy No Minimum of two criteria No Fluid Accumulation Mild (non-severe) #1 Nutrition Diagnosis Increased nutrient needs ( specify in comment below) Comments: protein Etiology wound healing As Evidenced by Signs and Symptoms LE wound Is patient on ventilator? No Is Patient Ambulatory and/or Out of Bed No REE-([place]-St. Jeor-confined to bed) 2329.416 Kcal/Kg value to use for calculation 14 Approximate Energy Requirements Using 1834 kcal/Kg Calculation Used for Recommendations Kcal/kg Additional Notes Protein needs: 114-137g/kg/day (1.25-1.5 g/kg/day AdBW 91. 6kg) Fluid needs: 2723-8727 ml/day Nutrition Intervention Change Diet Order: Continue Renal, consistent CHO Add Supplement/Snack (indicate name/kcal Add Nepro vanilla BID /protein ) Juan Manuel BID Provides kCal: 850 Provides Protein (gm) 40 Goal #1 Meet >75% of energy and protein needs Goal #2 wound healing Anticipated Discharge Needs: Renal, consistent CHO Follow-Up By: 09/28/19 Additional Comments Follow up for PO/ONS intakes
--- NOTE | 2019-09-27 11:45 | Progress Note ---
Assessment and Plan pt for permacath exchange today. Currently stable cardiac status. She continues to have sinus tachycardia, which appears physiologic. Initiate low dose lopressor and titrate as BPs permit. The patient has been seen in conjunction with Dr. Haq who agrees with the assessment and plan of care. - Patient Problems (1) Sinus tachycardia Current Visit: Yes Status: Acute (2) End stage renal disease on dialysis Current Visit: Yes Status: Chronic (3) HTN (hypertension) Current Visit: Yes Status: Chronic Qualifiers: Hypertension type: essential hypertension Qualified Code(s): I10 - Essential (primary) hypertension (4) Hypertensive heart disease Current Visit: Yes Status: Chronic Qualifiers: Heart failure presence: with heart failure Heart failure type: systolic Heart failure chronicity: acute on chronic Qualified Code(s): I11.0 - Hypertensive heart disease with heart failure; I50.23 - Acute on chronic systolic (congestive) heart failure (5) Diabetes Current Visit: Yes Status: Chronic (6) NSTEMI (non-ST elevated myocardial infarction) Current Visit: Yes Status: Acute Plan to address problem: type II (7) Morbid obesity Current Visit: Yes Status: Chronic (8) Anemia Current Visit: Yes Status: Chronic (9) Thrombocytopenia Current Visit: Yes Status: Acute (10) Cellulitis Current Visit: Yes Status: Suspected Subjective Date of service: 09/27/19 Principal diagnosis: esrd Interval history: pt resting in bed, states she is feeling better, mother at bedside. she is going for permacath exchange today. in ST on tele with HR 120s. Objective Last Vital Signs Temp 98.5 F 09/27/19 04:29 Pulse 76 09/27/19 04:05 Resp 17 09/27/19 05:27 BP 142/79 09/27/19 04:29 Pulse Ox 100 09/27/19 04:05 - Physical Examination General: No Apparent Distress HEENT: Positive: PERRL, Normocephaly, Mucus Membranes Moist Neck: Positive: neck supple, trachea midline Cardiac: Positive: Regular Rhythm, S1/S2 Lungs: Positive: Decreased Breath Sounds Neuro: Positive: Grossly Intact Abdomen: Positive: Unremarkable. Negative: Tender /Rectal: Other (deferred) Skin: Positive: Other (left permacath site intact, but cuff exposed ) Musculoskeletal: Decreased Range of Motion Extremities: Present: +2 Edema (BLE, chronic) - Labs and Meds CBC 09/26/19 Range/Units 14:19 WBC 9.1 (4.5-11.0) K/mm3 RBC 2.99 L (3.65-5.03) M/mm3 Hgb 8.5 L (10.1-14.3) gm/dl Hct 27.6 L (30.3-42.9) % Plt Count 180 D (140-440) K/mm3 Comprehensive Metabolic Panel 09/26/19 Range/Units 14:19 Sodium 139 (137-145) mmol/L Potassium 3.6 (3.6-5.0) mmol/L Chloride 99.5 (98-107) mmol/L Carbon Dioxide 24 (22-30) mmol/L BUN 18 H (7-17) mg/dL Creatinine 3.8 H (0.7-1.2) mg/dL Glucose 129 H (65-100) mg/dL Calcium 8.3 L (8.4-10.2) mg/dL - Imaging and Cardiology EKG: report reviewed, image reviewed Echo: report reviewed (06/2019 showed EF 50-55%, mod LVH, septal flattening of IV septum c/w RV volume overload, RV systolic function mod reduced, catheter in RA, mod TR, RVSP 28mmHg. ) - EKG Sinus rhythms and dysrhythmias: sinus tachycardia
[2019-09-27] MEDS ORDERED: METOPROLOL TARTRATE 25 MG TAB PO SCH (12:00)
[2019-09-27] MEDS: fentaNYL 100 MCG/2 ML INJ ONE ×2 (12:13→12:57)
[2019-09-27] MEDS: MIDAZOLAM 2 MG/2 ML INJ ONE ×2 (12:13→12:57)
[2019-09-27] MEDS: LIDOCAINE 1%/EPINEPHRINE 1:100,000 VIAL (20 ML) INFILTRATI ONE ×3 (12:15→13:01)
[2019-09-27] MEDS ORDERED: HEPARIN/NS 5000 UNIT/500ML 500 ML IR ONE (12:19)
[2019-09-27] MEDS ORDERED: SODIUM CHLORIDE 0.9% 250ML 0 ML ONE (12:20)
[2019-09-27] MEDS: HEPARIN 10,000 UNITS/10 ML VIAL ONE ×4 (12:58→13:32)
--- NOTE | 2019-09-27 13:57 | Progress Note ---
Assessment and Plan Cultures: 09/23/2019 blood culture: no growth 09/23/2019 wound culture: GNR A/P: 44 yo F PMHx ESRD on HD HTN, liver disease, cellulitis, bilateral leg ulcerations admitted with tachycardia while she was getting a new HD cath: 1) Tachycardia: no fever. Borderline leucocytosis on admission, already imp roved. Has chronic wounds, these do not appear to be infected. CXR without pneumonia. 2) Bilateral LE wounds, left foot dorsum wound and buttock wounds - ?calciphylaxis wounds. Patient is s/p debridement in 08/2019 and wound care. Completed abx for this. Wounds appear quite healthy with 95% granulation tissue except the left foot dorsum which needs continued wound care. 3) ESRD on HD - renally dose antibiotics as appropriate. got new HD cath 09/27/2019. 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 Please call with questions. d/W Dr. Sanford. Xochilt Pitts MD, FACP [facility] C: [phone] O: [phone] F: [phone] Subjective Date of service: 09/27/19 Principal diagnosis: esrd Interval history: No fever. Got new dialysis cath placed. Seen at dialysis. Objective - Exam Narrative Exam: Physical Exam: Constitutional: awake, alert. obese Head, Ears, Nose: Normocephalic, atraumatic. External ears, nose normal Eyes: Conjunctivae/corneas clear. icterus +. No ptosis. Neck: Supple, no meningeal signs Oral: no thrush Cardiovascular: S1, S2 normal. Respiratory: Good air entry, clear to auscultation bilaterally GI: obese, abdominal wall edema, bowel sounds +, No peritoneal signs Musculoskeletal: large bilateral lower extremity wounds with dressings. HD cath +. left foot dorsum with another wound with dressing. Wounds appear healthy with 95% granulation tissue Skin: No rash or abscess Hem/Lymphatic: No palpable cervical or supraclavicular nodes. No lymphangitis Psych: mood OK, affect normal Neurological: awake, alert, oriented - Constitutional Vitals: Vital Signs Temp Pulse Resp BP Pulse Ox 98.5 F 76 17 142/79 100 09/27/19 04:29 09/27/19 04:05 09/27/19 05:27 09/27/19 04:29 09/27/19 04:05 Temperature -Last 24 Hours Temperature 98.5 F Temperature 98.2 F Temperature 98.0 F - Labs CBC & Chem 7: 09/26/19 14:19 09/26/19 14:19 Labs: Abnormal lab results 09/26/19 09/26/19 09/26/19 Range/Units 11:53 14:19 14:19 RBC 2.99 L (3.65-5.03) M/mm3 Hgb 8.5 L (10.1-14.3) gm/dl Hct 27.6 L (30.3-42.9) % RDW 25.0 H (13.2-15.2) % BUN 18 H (7-17) mg/dL Creatinine 3.8 H (0.7-1.2) mg/dL Glucose 129 H (65-100) mg/dL POC Glucose 146 H (70-105) Calcium 8.3 L (8.4-10.2) mg/dL 09/26/19 09/26/19 09/26/19 Range/Units 16:52 21:48 23:42 RBC (3.65-5.03) M/mm3 Hgb (10.1-14.3) gm/dl Hct (30.3-42.9) % RDW (13.2-15.2) % BUN (7-17) mg/dL Creatinine (0.7-1.2) mg/dL Glucose (65-100) mg/dL POC Glucose 131 H 155 H 149 H (70-105) Calcium (8.4-10.2) mg/dL 09/27/19 Range/Units 08:17 RBC (3.65-5.03) M/mm3 Hgb (10.1-14.3) gm/dl Hct (30.3-42.9) % RDW (13.2-15.2) % BUN (7-17) mg/dL Creatinine (0.7-1.2) mg/dL Glucose (65-100) mg/dL POC Glucose 117 H (70-105) Calcium (8.4-10.2) mg/dL
--- NOTE | 2019-09-27 14:23 | Post Operative Note ---
Date of procedure: 09/27/19 Pre-op diagnosis: Permcath malfunction Post-op diagnosis: same Procedure: 1. Venography of the SVC and left innominate vein 2. Angioplasty of the SVC and left innominate vein with a 12 mm x 60 mm angioplasty balloon 3. Fluoroscopic guided exchange of a 15 Fr 27 cm Glidepath permcath to a 15 Fr 23 cm Palindrome permcath Anesthesia: local (w/ conscious sedation) Surgeon: PAGE RODRIGUEZ Estimated blood loss: minimal Condition: stable Disposition: floor
--- NOTE | 2019-09-27 14:27 | Operative Report ---
Operative Report Operative Report: EXAM: 1. Venography of the SVC and left innominate vein 2. Angioplasty of the SVC and left innominate vein with a 12 mm x 60 mm angioplasty balloon 3. Fluoroscopic guided exchange of a 15 Fr 27 cm Glidepath permcath to a 15 Fr 23 cm Palindrome permcath DATE: 09/27/19 INDICATION: PermCath malfunction. MEDICATIONS: Please see nursing report for full details. SAS SQL DEVELOPER: PAGE RODRIGUEZ MD DEVICES: 23 cm tip to cuff 15 Fr dual lumen hemodialysis catheter, Palindrome ; existing catheter was a 27 cm tip to cuff dual lumen hemodialysis catheter, Glidepath CONTRAST: Please see laborer road note for full details. PROCEDURE: The risks, benefits, and alternatives were discussed and informed consent was obtained. The patient was transported to the angiography suite in satisfactory/stable condition and was transported onto the angiography table. The patient was prepped and draped in a sterile fashion. The existing PermCath was prepped and draped in a sterile fashion. Heparin was removed from the lumens and then saline was used to flush the lumens. A stiff angled Glidewire was advanced through one of lumens of the existing PermCath and into the IVC. Lidocaine was used to anesthetize the existing PermCath dermatotomy. Using a hemostat, blunt dissection was used to free the existing cuff. The catheter was partially retracted. Digital subtraction venography was performed through the other lumen. Over the 0.035 inch wire, the existing PermCath was removed and a 7 Czech sheath was advanced over the wire. 12 mm x 60 mm angioplasty balloon was advanced over the wire and used to perform angioplasty of the SVC and left innominate vein. The balloon was removed and digital subtraction angiography was performed. A second wire was passed into the IVC. The sheath was removed. A new PermCath was advanced over the wire and position centrally under fluoroscopic guidance. 2-0 Ethilon suture was used to secure the catheter at the dermatotomy. The catheter was charged with heparin one thousand units per mL of space. Sterile dressing and Biopatch applied. The patient was transferred from the angiography suite back to the floor in stable condition. FINDINGS: 1. Excellent flow was obtained through the dialysis catheter with 20 mL syringes. 2. The new catheter tip is in the right atrium. 3. Superior vena cava and left innominate vein have a functional severe narrowing which was treated with angioplasty and afterwards resolved with minimal residual narrowing. IMPRESSION: 1. Successful fluoroscopic guided replacement of a left internal jugular tunneled cuffed hemodialysis catheter. 2. Successful angioplasty of the SVC and left innominate vein with a 12 mm x 60 mm angioplasty balloon.
--- NOTE | 2019-09-27 17:36 | Progress Note ---
Assessment and Plan Patient Problems (1) End stage renal disease on dialysis Current Visit: Yes Status: Chronic Plan to address problem: END-STAGE RENAL DISEASE cONTINUE HEMODIALYSIS Friday. friday (2) Calciphylaxis Current Visit: Yes Status: Acute Plan to address problem: POSSIBLE CALCIPHYLAXIS WAS REFERRED FOR HYPERBARIC TREATMENTS HOWEVER, THIS HAS BEING ON HOLD SINCE rECENT CARDIAC ARREST'S WE'LL NEED SODIUM THIOSULFATE WITH DIALYSIS Plan for aggressive dialysis while the patient Check phosphorus and PTH AVOID vitamin D supplementation. (3) Sepsis Current Visit: Yes Status: Acute Qualifiers: Sepsis type: sepsis due to unspecified organism Sepsis acute organ dysfunction status: unspecified Qualified Code(s): A41.9 - Sepsis, unspecified organism Plan to address problem: SEPSIS SECONDARY TO INFECTED LOWER EXTREMITY ULCERS. CONTINUED BROAD-SPECTRUM ANTIBIOTICS (4) Bilateral leg ulcer Current Visit: No Status: Acute Plan to address problem: BILATERAL LOWER EXTREMITY WOUNDS WITH POLYMICROBIAL GROWTH CONTINUE ANTIBIOTICS Subjective Principal diagnosis: esrd Interval history: 44-year-old lady wiTH diabetes mellitus type2, hypertension, ESRD ON H EMODIALYSIS, WITH HISTORY OF BACTEREMIA, BILATERAL LOWER EXTREMITIES INFECTION She was seen today I attest I saw the patient on dialysis Status post PermCath exchange Need for compliance discussed with the patient and her mother Objective - Vital Signs Vital signs: Vital Signs - 12hr 09/27/19 09/27/19 14:07 14:30 Temperature 98.7 F 98.2 F Pulse Rate 127 H 128 H Respiratory 18 24 Rate Blood Pressure 107/56 114/59 O2 Sat by Pulse 98 Oximetry - General Appearance General appearance: well-developed, well-nourished EENT: ATNC, PERRL Neck: no JVD Respiratory: Present: Clear to Ascultation Cardiology: regular, S1S2 Gastrointestinal: normal, normoactive bowel sounds Integumentary: rash Neurologic: alert and oriented x3, CN 3-12 intact Musculoskeletal: deferred, other (bilateral lower extremity wounds with dressings) - Lab 09/26/19 14:19 09/26/19 14:19 Most recent lab results Calcium 8.3 mg/dL (8.4-10.2) L 09/26/19 14:19 Magnesium 1.90 mg/dL (1.7-2.3) 09/24/19 07:07 Medications & Allergies - Medications Allergies/Adverse Reactions: Allergies No Known Allergies Allergy (Verified 03/12/19 12:23) Home Medications: Home Medications Medication Instructions Recorded Confirmed Last Taken Type Ergocalciferol(Vitamin D2)(Nf) 800 unit PO DAILY 07/06/19 09/23/19 1 Day Ago History [Vitamin D (Nf)] ~08/12/19 Pantoprazole [Protonix TAB] 40 mg PO QDAY #30 tablet 07/14/19 09/23/19 08/13/19 Rx Lactulose [Cephulac] 20 gm PO BID oral.liqd 08/13/19 09/23/19 Unknown Rx ALBUTEROL NEB's [Proventil 0.083% 2.5 mg IH Q3HRT PRN #30 nebu 09/02/19 09/23/19 Unknown Rx NEBS] Acetaminophen [Acetaminophen TAB] 650 mg PO Q4H PRN tablet 09/13/19 09/23/19 Unknown Rx Gabapentin 100 mg PO Q8HR #90 capsule 09/27/19 Unknown Rx oxyCODONE /ACETAMINOPHEN [Percocet 1 tab PO Q6H PRN #14 tablet 09/27/19 Unknown Rx 5/325 mg] Active Medications: Generic Name Dose Route Start Last Admin Trade Name Freq PRN Reason Stop Dose Admin Acetaminophen 650 mg 09/23/19 19:57 Tylenol PO Q4H PRN Pain MILD(1-3)/Fever >100.5/[place] Albuterol 2.5 mg 09/23/19 20:39 Proventil IH Q4HRT PRN Shortness Of Breath Cholecalciferol 800 unit 09/24/19 10:00 09/26/19 10:01 Vitamin D3 PO 800 unit QDAY WALT Administration Dextrose 50 ml 09/23/19 19:57 D50w (25gm) Syringe IV Q30MIN PRN Hypoglycemia Protocol Diphenhydramine HCl 25 mg 09/23/19 20:06 Benadryl IV Q6H PRN Itching Epoetin Arias 20,000 unit 09/24/19 17:19 Procrit IV AMBER PRN hemodialysis Gabapentin 100 mg 09/24/19 14:00 09/27/19 05:26 Gabapentin PO 100 mg Q8HR WALT Administration Heparin Sodium (Porcine) 5,000 unit 09/23/19 22:00 09/26/19 21:31 Heparin SUB-Q 5,000 unit Q12HR WALT Administration Sodium Chloride 100 mls @ 999 mls/hr 09/26/19 16:20 Nacl 0.9% IV AMBER PRN Hypotension Sodium Chloride 500 mls @ 50 mls/hr 09/27/19 11:00 09/27/19 13:00 Nacl 0.9% 500 Ml IV 09/27/19 23:59 50 mls DIRECT WALT Administration Insulin Human Lispro 0 unit 09/23/19 22:00 09/27/19 07:30 Humalog SUB-Q Not Given ACHS [facility] Protocol Lactulose 20 gm 09/23/19 22:00 09/26/19 21:30 Cephulac PO 20 gm BID WALT Administration Metoprolol Tartrate 12.5 mg 09/27/19 12:00 Metoprolol PO BID WALT Nitroglycerin 0.4 mg 09/23/19 20:03 Nitrostat SL .Q5MIN PRN Chest Pain Ondansetron HCl 4 mg 09/23/19 19:57 Zofran IV Q6H PRN Nausea And Vomiting Oxycodone/Acetaminophen 1 tab 09/23/19 19:57 09/27/19 05:27 Percocet 5/325 PO 1 tab Q6H PRN Administration Pain, Moderate (4-6) Pantoprazole Sodium 40 mg 09/24/19 10:00 09/26/19 10:01 Protonix PO 40 mg QDAY WALT Administration Sodium Chloride 10 ml 09/23/19 22:00 09/26/19 21:33 Sodium Chloride Flush Syringe 10 Ml IV 10 ml BID WALT Administration Sodium Chloride 10 ml 09/23/19 19:57 Sodium Chloride Flush Syringe 10 Ml IV PRN PRN LINE FLUSH
[2019-09-27] MEDS: CHOLECALCIFEROL (VIT D3) 400 UNIT TAB PO SCH (19:08)
[2019-09-27] MEDS: PANTOPRAZOLE 40 MG TAB PO SCH (19:09)
[2019-09-27 19:31] VITALS: BP 97/75
[2019-09-27] MEDS: LACTULOSE 20 GM/30 ML ORAL LIQD PO SCH (19:34)
== END 2019-09-27 21:50 | disposition home health service (06) | DRG 853 ==
LOC: ED 14:51 → 4A 19:57 → 3A 09-26 23:39
PROVIDERS: ADMIT Internal Medicine; ATTEND Internal Medicine
PROC: 5A1D70Z Performance of Urinary Filtration, Intermittent, Less than 6 Hours Per Day (ICD-10-PCS; 2019-09-25)
PROC: B5181ZZ Fluoroscopy of Superior Vena Cava using Low Osmolar Contrast (ICD-10-PCS; principal; 2019-09-27)
PROC: 03723ZZ Dilation of Innominate Artery, Percutaneous Approach (ICD-10-PCS; 2019-09-27)
PROC: 027V3ZZ Dilation of Superior Vena Cava, Percutaneous Approach (ICD-10-PCS; 2019-09-27)
PROC: B51V1ZZ Fluoroscopy of Other Veins using Low Osmolar Contrast (ICD-10-PCS; 2019-09-27)
PROC: 5A1D70Z Performance of Urinary Filtration, Intermittent, Less than 6 Hours Per Day (ICD-10-PCS; 2019-09-27)
PROC: 0JPT3XZ Removal of Tunneled Vascular Access Device from Trunk Subcutaneous Tissue and Fascia, Percutaneous Approach (ICD-10-PCS; 2019-09-27)
PROC: 0JH63XZ Insertion of Tunneled Vascular Access Device into Chest Subcutaneous Tissue and Fascia, Percutaneous Approach (ICD-10-PCS; 2019-09-27)
PROC: 02PY33Z Removal of Infusion Device from Great Vessel, Percutaneous Approach (ICD-10-PCS; 2019-09-27)
PROC: 02H633Z Insertion of Infusion Device into Right Atrium, Percutaneous Approach (ICD-10-PCS; 2019-09-27)
PROC: B5181ZA Fluoroscopy of Superior Vena Cava using Low Osmolar Contrast, Guidance (ICD-10-PCS; 2019-09-27)
DX: A41.9 Sepsis, unspecified organism (principal); N18.6 End stage renal disease; J96.01 Acute respiratory failure with hypoxia; I21.A1 Myocardial infarction type 2; I50.43 Acute on chronic combined systolic (congestive) and diastolic (congestive) heart failure; I13.2 Hypertensive heart and chronic kidney disease with heart failure and with stage 5 chronic kidney disease, or end stage renal disease; L97.929 Non-pressure chronic ulcer of unspecified part of left lower leg with unspecified severity; L97.919 Non-pressure chronic ulcer of unspecified part of right lower leg with unspecified severity; E87.2 Acidosis; L03.116 Cellulitis of left lower limb; L03.115 Cellulitis of right lower limb; Z68.43 Body mass index [BMI] 50.0-59.9, adult; I48.20 Chronic atrial fibrillation, unspecified; T82.41XA Breakdown (mechanical) of vascular dialysis catheter, initial encounter; E66.01 Morbid (severe) obesity due to excess calories; E11.22 Type 2 diabetes mellitus with diabetic chronic kidney disease; R00.0 Tachycardia, unspecified; E83.59 Other disorders of calcium metabolism; D63.1 Anemia in chronic kidney disease; R79.89 Other specified abnormal findings of blood chemistry; E11.40 Type 2 diabetes mellitus with diabetic neuropathy, unspecified; E87.6 Hypokalemia; D69.6 Thrombocytopenia, unspecified; Z99.2 Dependence on renal dialysis; Z79.4 Long term (current) use of insulin; Z79.899 Other long term (current) drug therapy; Z91.19 Patient's noncompliance with other medical treatment and regimen; Z99.81 Dependence on supplemental oxygen; Z71.6 Tobacco abuse counseling
CPT/HCPCS: 36415; 36581; 37248; 71045; 77001; 80048; 80053; 80061; 80074; 82140; 82805; 82962; 83735; 84443; 84484; 85007; 85025; 85027; 85610; 85730; 87040; 87076; 87116; 87186; 93005; 93010; 96374; G0378; C1725; C1750; C1769; J0692; J1644; J1815; J2250; J3010; J7030; J7050; Q9967

== ENCOUNTER 2019-11-25 09:17 | Outpatient (CLI) | payer MEDICARE ==
[~2019-11-25 09:17] MED LIST: SODIUM CHLORIDE 0.9% 500 ML 500 ML ONE
[2019-11-25] MEDS ORDERED: LIDOCAINE (4%) 40 MG/ML TOPICAL SOLN 50 ML BOTTLE TP ONE ×2 (09:30→10:00)
== END 2019-11-25 09:18 | disposition home or self-care (01) ==
LOC: WOUND 09:17
PROVIDERS: ATTEND Surgery
DX: E10.622 Type 1 diabetes mellitus with other skin ulcer (principal); L89.322 Pressure ulcer of left buttock, stage 2; L89.312 Pressure ulcer of right buttock, stage 2; L98.411 Non-pressure chronic ulcer of buttock limited to breakdown of skin; E10.621 Type 1 diabetes mellitus with foot ulcer; L89.619 Pressure ulcer of right heel, unspecified stage; L97.411 Non-pressure chronic ulcer of right heel and midfoot limited to breakdown of skin; E83.59 Other disorders of calcium metabolism; E10.22 Type 1 diabetes mellitus with diabetic chronic kidney disease; I13.2 Hypertensive heart and chronic kidney disease with heart failure and with stage 5 chronic kidney disease, or end stage renal disease; N18.6 End stage renal disease; I50.9 Heart failure, unspecified; I25.10 Atherosclerotic heart disease of native coronary artery without angina pectoris; Z87.891 Personal history of nicotine dependence
CPT/HCPCS: J7040

== ENCOUNTER 2019-11-29 12:15 | Inpatient (IN) | payer MEDICARE ==
[2019-11-29] MEDS ORDERED: SODIUM CHLORIDE 0.9% 500 ML 500 ML IV ONE (12:39)
[2019-11-29] MEDS ORDERED: CEFEPIME/NS 2 GM/100 ML 2 GM/100 ML BAG IV SCH (13:00)
[2019-11-29 13:36] LABS: Hematocrit 20.8 % (30.3-42.9); Hemoglobin 6.5 gm/dl (10.1-14.3); Mean Corpuscular HGB Conc 31 % (30-34); Mean Corpuscular Volume 86 fl (79-97); Platelet Count 247 K/mm3 (140-440); Red Blood Count 2.43 M/mm3 (3.65-5.03)
[2019-11-29 13:46] LABS: Red Cell Distribution Width 20.6 % (13.2-15.2)
[2019-11-29 13:56] LABS: Albumin 1.6 g/dL (3.9-5); Calcium 7.7 mg/dL (8.4-10.2)
--- NOTE | 2019-11-29 14:06 | XRay Report ---
CHEST 1 VIEW INDICATION: fever. COMPARISON: 10/25/2019 FINDINGS: Support devices: Stable satisfactory device positioning. Vas-Cath with tip in the distal SVC. Heart: Stable cardiomegaly. Pulmonary vasculature: Mild central vascular congestion which may be related to low lung volumes. Lungs/Pleura: No acute air space or interstitial disease. Additional findings: None. IMPRESSION: 1. No acute findings. 2. Cardiomegaly but no CHF. Signer Name: Tano Young MD Signed: 11/29/2019 2:01 PM Workstation Name: [id number]
[2019-11-29 14:57] LABS: Total Cells Counted 100
[2019-11-29 14:59] LABS: Anisocytosis 1+; Basophils % (Manual) 0 % (0.0-1.8); Eosinophils % (Manual) 0 % (0.0-4.3); Hypochromasia 2+; Ovalocytes Few; Target Cells 2+
[2019-11-29 15:00] LABS: Platelet Estimate Consistent w Auto
--- NOTE | 2019-11-29 15:46 | Emergency Department Report ---
ED General Adult HPI - General Chief complaint: Fever Stated complaint: LOW BLOOD PRESSURE/FEVER Time Seen by Provider: 11/29/19 12:33 Source: EMS Mode of arrival: Stretcher Limitations: Physical Limitation, Other - History of Present Illness Initial comments: Patient is a 44-year-old F Brazilian female with a past medical history of end- stage renal disease who is presenting with fever from dialysis. Patient had dialysis today and was transported to the emergency department. Patient was told her last dialysis session that she should probably see someone regarding a possible infection. Patient has a permacath in place. Patient has had some chills weakness but denies cough cold congestion. Severity scale (0 -10): 4 - Related Data Home Medications Medication Instructions Recorded Confirmed Last Taken Ergocalciferol(Vitamin D2)(Nf) 800 unit PO DAILY 07/06/19 10/26/19 10/24/19 [Vitamin D (Nf)] Previous Rx's Medication Instructions Recorded Last Taken Type Pantoprazole [Protonix TAB] 40 mg PO QDAY #30 tablet 07/14/19 10/23/19 16:00 Rx Lactulose [Cephulac] 20 gm PO BID oral.liqd 08/13/19 Unknown Rx ALBUTEROL NEB's [Proventil 0.083% 2.5 mg IH Q3HRT PRN #30 nebu 09/02/19 Unknown Rx NEBS] Acetaminophen [Acetaminophen TAB] 650 mg PO Q4H PRN tablet 09/13/19 10/26/19 Rx Gabapentin 100 mg PO Q8HR #90 capsule 09/27/19 Unknown Rx oxyCODONE /ACETAMINOPHEN [Percocet 1 tab PO Q6H PRN #14 tablet 09/27/19 10/12/19 Rx 5/325 mg] 1 tab Cholecalciferol Vit D3 [Vitamin D3 800 unit PO QDAY #30 tablet 10/28/19 Unknown Rx 400 UNIT TAB] carvediloL [Coreg] 6.25 mg PO BID #60 tablet 10/28/19 Unknown Rx Allergies Allergy/AdvReac Type Severity Reaction Status Date / Time No Known Allergies Allergy Verified 03/12/19 12:23 ED Review of Systems ROS: Stated complaint: LOW BLOOD PRESSURE/FEVER Other details as noted in HPI Comment: All other systems reviewed and negative ED Past Medical Hx - Past Medical History Previous Medical History?: Yes Hx Hypertension: Yes Hx Heart Attack/AMI: No Hx Congestive Heart Failure: Yes Hx Diabetes: Yes Hx Deep Vein Thrombosis: No Hx Pulmonary Embolism: No Hx Liver Disease: Yes Hx Renal Disease: Yes (dialysis) Hx Asthma: No Hx COPD: Yes Hx Tuberculosis: No Hx HIV: No Additional medical history: PVD, and cellulitis - Surgical History Past Surgical History?: Yes Hx Coronary Stent: No Hx Pacemaker: No Hx Internal Defibrillator: No Additional Surgical History: Perm cath, - Social History Smoking Status: Never Smoker Substance Use Type: None - Medications Home Medications: Home Medications Medication Instructions Recorded Confirmed Last Taken Type Ergocalciferol(Vitamin D2)(Nf) 800 unit PO DAILY 07/06/19 10/26/19 10/24/19 History [Vitamin D (Nf)] Pantoprazole [Protonix TAB] 40 mg PO QDAY #30 tablet 07/14/19 10/26/19 10/23/19 16:00 Rx Lactulose [Cephulac] 20 gm PO BID oral.liqd 08/13/19 10/27/19 Unknown Rx ALBUTEROL NEB's [Proventil 0.083% 2.5 mg IH Q3HRT PRN #30 nebu 09/02/19 10/26/19 Unknown Rx NEBS] Acetaminophen [Acetaminophen TAB] 650 mg PO Q4H PRN tablet 09/13/19 10/26/19 10/26/19 Rx Gabapentin 100 mg PO Q8HR #90 capsule 09/27/19 10/27/19 Unknown Rx oxyCODONE /ACETAMINOPHEN [Percocet 1 tab PO Q6H PRN #14 tablet 09/27/19 10/26/19 10/12/19 Rx 5/325 mg] 1 tab Cholecalciferol Vit D3 [Vitamin D3 800 unit PO QDAY #30 tablet 10/28/19 Unknown Rx 400 UNIT TAB] carvediloL [Coreg] 6.25 mg PO BID #60 tablet 10/28/19 Unknown Rx ED Physical Exam - General Limitations: Physical Limitation, Other General appearance: alert, in no apparent distress - Head Head exam: Present: atraumatic, normocephalic - Eye Eye exam: Present: normal appearance - ENT ENT exam: Present: mucous membranes moist - Neck Neck exam: Present: normal inspection - Respiratory Respiratory exam: Present: normal lung sounds bilaterally. Absent: respiratory distress, wheezes, rales, rhonchi - Cardiovascular Cardiovascular Exam: Present: regular rate, normal rhythm, normal heart sounds. Absent: systolic murmur, diastolic murmur, rubs, gallop - GI/Abdominal GI/Abdominal exam: Present: soft, normal bowel sounds, other (Obese with edema to the skin). Absent: distended, tenderness, guarding, rebound - Extremities Exam Extremities exam: Present: normal inspection, other (Bilateral 3+ lower extremity edema up to the thighs) - Back Exam Back exam: Present: normal inspection - Neurological Exam Neurological exam: Present: alert, oriented X3 - Psychiatric Psychiatric exam: Present: normal affect, normal mood - Skin Skin exam: Present: warm, dry, intact, normal color. Absent: rash ED Course Vital Signs 11/29/19 11/29/19 11/29/19 12:39 12:40 12:43 Temperature 98.8 F 98.8 F Pulse Rate 113 H 113 H 113 H Respiratory 14 14 14 Rate Blood Pressure 93/42 [Left] O2 Sat by Pulse 100 100 100 Oximetry 11/29/19 13:07 Temperature Pulse Rate Respiratory 22 Rate Blood Pressure [Left] O2 Sat by Pulse 100 Oximetry ED Medical Decision Making - Lab Data Result diagrams: 11/29/19 13:05 11/29/19 13:05 Lab Results 11/29/19 11/29/19 11/29/19 Range/Units 13:05 13:05 13:05 WBC 24.9 H (4.5-11.0) K/mm3 RBC 2.43 L (3.65-5.03) M/mm3 Hgb 6.5 L (10.1-14.3) gm/dl Hct 20.8 L (30.3-42.9) % MCV 86 (79-97) fl MCH 27 L (28-32) pg MCHC 31 (30-34) % RDW 20.6 H (13.2-15.2) % Plt Count 247 (140-440) K/mm3 Add Manual Diff Complete Total Counted 100 Seg Neuts % (Manual) 95.0 H (40.0-70.0) % Band Neutrophils % 0 % Lymphocytes % (Manual) 4.0 L (13.4-35.0) % Reactive Lymphs % (Man) 0 % Monocytes % (Manual) 1.0 (0.0-7.3) % Eosinophils % (Manual) 0 (0.0-4.3) % Basophils % (Manual) 0 (0.0-1.8) % Metamyelocytes % 0 % Myelocytes % 0 % Promyelocytes % 0 % Blast Cells % 0 % Nucleated RBC % Not Reportable Seg Neutrophils # Man 23.7 H (1.8-7.7) K/mm3 Band Neutrophils # 0.0 K/mm3 Lymphocytes # (Manual) 1.0 L (1.2-5.4) K/mm3 Abs React Lymphs (Man) 0.0 K/mm3 Monocytes # (Manual) 0.2 (0.0-0.8) K/mm3 Eosinophils # (Manual) 0.0 (0.0-0.4) K/mm3 Basophils # (Manual) 0.0 (0.0-0.1) K/mm3 Metamyelocytes # 0.0 K/mm3 Myelocytes # 0.0 K/mm3 Promyelocytes # 0.0 K/mm3 Blast Cells # 0.0 K/mm3 WBC Morphology Not Reportable Hypersegmented Neuts Not Reportable Hyposegmented Neuts Not Reportable Hypogranular Neuts Not Reportable Smudge Cells Not Reportable Toxic Granulation Not Reportable Toxic Vacuolation Not Reportable Dohle Bodies Not Reportable Pelger-Huet Anomaly Not Reportable Sara Rods Not Reportable Platelet Estimate Consistent w auto Clumped Platelets Not Reportable Plt Clumps, EDTA Not Reportable Large Platelets Not Reportable Giant Platelets Not Reportable Platelet Satelliting Not Reportable Plt Morphology Comment Not Reportable RBC Morphology Not Reportable Dimorphic RBCs Not Reportable Polychromasia Few Hypochromasia 2+ Poikilocytosis Not Reportable Anisocytosis 1+ Microcytosis Not Reportable Macrocytosis Not Reportable Spherocytes Not Reportable Pappenheimer Bodies Not Reportable Sickle Cells Not Reportable Target Cells 2+ Tear Drop Cells Not Reportable Ovalocytes Few Helmet Cells Not Reportable [place] Bodies Not Reportable [place] Rings Not Reportable [place] Cells Not Reportable Bite Cells Not Reportable Crenated Cell Not Reportable Elliptocytes Not Reportable Acanthocytes (Spur) Not Reportable Rouleaux Not Reportable Hemoglobin C Crystals Not Reportable Schistocytes Not Reportable Malaria parasites Not Reportable Adarsh Bodies Not Reportable Hem Pathologist Commnt No Sodium 136 L (137-145) mmol/L Potassium 4.0 (3.6-5.0) mmol/L Chloride 99.8 (98-107) mmol/L Carbon Dioxide 20 L (22-30) mmol/L Anion Gap 20 mmol/L BUN 40 H (7-17) mg/dL Creatinine 4.6 H (0.7-1.2) mg/dL Estimated GFR 13 ml/min BUN/Creatinine Ratio 9 % Glucose 126 H (65-100) mg/dL Lactic Acid 2.10 H* (0.7-2.0) mmol/L Calcium 7.7 L (8.4-10.2) mg/dL Total Bilirubin 0.70 (0.1-1.2) mg/dL AST 14 (5-40) units/L ALT 5 L (7-56) units/L Alkaline Phosphatase 172 H (35-129) units/L Troponin T 0.272 H* (0.00-0.029) ng/mL Total Protein 6.4 (6.3-8.2) g/dL Albumin 1.6 L (3.9-5) g/dL Albumin/Globulin Ratio 0.3 % Triglycerides 65 (2-149) mg/dL Cholesterol 62 (50-199) mg/dL LDL Cholesterol Direct 21 L (50-130) mg/dL HDL Cholesterol 31 L (40-59) mg/dL Cholesterol/HDL Ratio 2.00 % 11/29/19 Range/Units 15:05 WBC (4.5-11.0) K/mm3 RBC (3.65-5.03) M/mm3 Hgb (10.1-14.3) gm/dl Hct (30.3-42.9) % MCV (79-97) fl MCH (28-32) pg MCHC (30-34) % RDW (13.2-15.2) % Plt Count (140-440) K/mm3 Add Manual Diff Total Counted Seg Neuts % (Manual) (40.0-70.0) % Band Neutrophils % % Lymphocytes % (Manual) (13.4-35.0) % Reactive Lymphs % (Man) % Monocytes % (Manual) (0.0-7.3) % Eosinophils % (Manual) (0.0-4.3) % Basophils % (Manual) (0.0-1.8) % Metamyelocytes % % Myelocytes % % Promyelocytes % % Blast Cells % % Nucleated RBC % Seg Neutrophils # Man (1.8-7.7) K/mm3 Band Neutrophils # K/mm3 Lymphocytes # (Manual) (1.2-5.4) K/mm3 Abs React Lymphs (Man) K/mm3 Monocytes # (Manual) (0.0-0.8) K/mm3 Eosinophils # (Manual) (0.0-0.4) K/mm3 Basophils # (Manual) (0.0-0.1) K/mm3 Metamyelocytes # K/mm3 Myelocytes # K/mm3 Promyelocytes # K/mm3 Blast Cells # K/mm3 WBC Morphology Hypersegmented Neuts Hyposegmented Neuts Hypogranular Neuts Smudge Cells Toxic Granulation Toxic Vacuolation Dohle Bodies Pelger-Huet Anomaly Sara Rods Platelet Estimate Clumped Platelets Plt Clumps, EDTA Large Platelets Giant Platelets Platelet Satelliting Plt Morphology Comment RBC Morphology Dimorphic RBCs Polychromasia Hypochromasia Poikilocytosis Anisocytosis Microcytosis Macrocytosis Spherocytes Pappenheimer Bodies Sickle Cells Target Cells Tear Drop Cells Ovalocytes Helmet Cells [place] Bodies [place] Rings Raciel Cells Bite Cells Crenated Cell Elliptocytes Acanthocytes (Spur) Rouleaux Hemoglobin C Crystals Schistocytes Malaria parasites Adarsh Bodies Hem Pathologist Commnt Sodium (137-145) mmol/L Potassium (3.6-5.0) mmol/L Chloride (98-107) mmol/L Carbon Dioxide (22-30) mmol/L Anion Gap mmol/L BUN (7-17) mg/dL Creatinine (0.7-1.2) mg/dL Estimated GFR ml/min BUN/Creatinine Ratio % Glucose (65-100) mg/dL Lactic Acid 2.50 H* (0.7-2.0) mmol/L Calcium (8.4-10.2) mg/dL Total Bilirubin (0.1-1.2) mg/dL AST (5-40) units/L ALT (7-56) units/L Alkaline Phosphatase (35-129) units/L Troponin T (0.00-0.029) ng/mL Total Protein (6.3-8.2) g/dL Albumin (3.9-5) g/dL Albumin/Globulin Ratio % Triglycerides (2-149) mg/dL Cholesterol (50-199) mg/dL LDL Cholesterol Direct (50-130) mg/dL HDL Cholesterol (40-59) mg/dL Cholesterol/HDL Ratio % - Medical Decision Making Patient received cefepime and vancomycin prior to arrival. Patient was also given 2 L of fluid prior to arrival. Patient does have a significantly elevated white count. Patient to be admitted to the hospitalist service for further IV antibiotics. Blood cultures have been drawn Critical care attestation.: If time is entered above; I have spent that time in minutes in the direct care of this critically ill patient, excluding procedure time. ED Disposition Clinical Impression: Sepsis, End stage renal disease on dialysis Disposition: OP ADMIT IP TO THIS HOSP Is pt being admited?: Yes Does the pt Need Aspirin: No Condition: Stable Time of Disposition: 15:46
--- NOTE | 2019-11-29 16:27 | History and Physical Report ---
History of Present Illness Chief complaint: I could not finish dialysis History of present illness: 44 YO Female with ESRD on HD(M,W,F), HTN, DM, CHF, COPD, nicotine Dependence, Morbid Obesity, PVD, debility, Obesity Hypoventilation Syndrome, noncompliance present to ED for evaluation. Patient is lethargic at time of my exam and is unable to provide detailed history. Patient history provided by the mother who was at bedside during my exam and interview. As per mother, the patient went to her dialysis clinic for her routine scheduled dialysis session today. Patient was unable to receive the full dialysis. Dialysis staff notified the patient's mother that the patient had developed a fever to 102, and also was found to be hypotensive with a systolic blood pressure in the 80s. EMS was notified, and upon arrival the patient was found to be in distress and transported to [facility] for further care and evaluation. Patient seen and evaluated in the ED. Lab and imaging studies reviewed. Patient found to have sepsis, metabolic acidosis, symptomatic anemia, end-stage renal disease. Patient admitted to [facility] [place] for medical stabilization due to high risk for decompensation. Patient initiated on sepsis protocol. No reports of, chills, CP, Palpitations, NVD, Trauma, prolonged travel/immobility, hemoptysis, unilateral leg swelling, or recent ill contacts. Prior admission on 07/06/19 reviewed. All listed medication reconciled at time of admission. Prior admission on 10/26/2019 reviewed. All listed medication reconciled at time of admission. Past History Past Medical History: diabetes, ESRD, hypertension, PVD, other (See HPI) Past Surgical History: Other (Permacath placement) Social history: single, lives with family, smoking. denies: alcohol abuse, prescription drug abuse Family history: diabetes, hypertension Medications and Allergies Allergies Allergy/AdvReac Type Severity Reaction Status Date / Time No Known Allergies Allergy Verified 03/12/19 12:23 Home Medications Medication Instructions Recorded Confirmed Last Taken Type ALBUTEROL NEB's [Proventil 0.083% 2.5 mg IH Q3HRT PRN #30 nebu 09/02/19 11/29/19 Unknown Rx NEBS] Acetaminophen [Acetaminophen TAB] 650 mg PO Q4H PRN tablet 09/13/19 11/29/19 10/26/19 Rx Gabapentin 100 mg PO Q8HR #90 capsule 09/27/19 11/29/19 Unknown Rx oxyCODONE /ACETAMINOPHEN [Percocet 1 tab PO Q6H PRN #14 tablet 09/27/19 10/26/19 11/29/19 08:00 Rx 5/325 mg] carvediloL [Coreg] 6.25 mg PO BID #60 tablet 10/28/19 11/29/19 Unknown Rx Active Meds: Active Medications Cefepime HCl (Cefepime/Ns 2 Gm/100 Ml) 2 gm in 100 mls @ 200 mls/hr IV Q12HR [facility]; Protocol Last Admin: 11/29/19 14:06 Dose: Not Given Documented by: Review of Systems ROS unobtainable: due to mental status Exam - Constitutional Vitals: Temp Pulse Resp BP Pulse Ox 98.8 F 113 H 22 93/42 100 11/29/19 12:43 11/29/19 12:43 11/29/19 13:07 11/29/19 12:43 11/29/19 13:07 General appearance: Present: mild distress, obese - EENT Eyes: Present: PERRL ENT: hearing intact, clear oral mucosa - Neck Neck: Present: supple, normal ROM - Respiratory Respiratory effort: labored, accessory muscle use Respiratory: bilateral: diminished, rhonchi - Cardiovascular Heart Sounds: Present: S1 & S2. Absent: rub, click - Extremities Extremities: pulses symmetrical Extremity abnormal: edema Peripheral Pulses: abnormal (Capillary refill greater than 3.5 seconds) - Abdominal General gastrointestinal: Present: soft, non-tender, non-distended, normal bowel sounds Female genitourinary: Present: normal - Integumentary Integumentary: Present: clear, dry, clammy, decreased turgor - Musculoskeletal Musculoskeletal: generalized weakness - Psychiatric Psychiatric: no appropriate mood/affect, no intact judgment & insight, no memory intact - Neurologic Neurologic: CNII-XII intact, no focal deficits, moves all extremities, no gait normal Results - Labs CBC & Chem 7: 11/29/19 13:05 11/29/19 13:05 Labs: Abnormal lab results 11/29/19 11/29/19 11/29/19 Range/Units 13:05 13:05 13:05 WBC 24.9 H (4.5-11.0) K/mm3 RBC 2.43 L (3.65-5.03) M/mm3 Hgb 6.5 L (10.1-14.3) gm/dl Hct 20.8 L (30.3-42.9) % MCH 27 L (28-32) pg RDW 20.6 H (13.2-15.2) % Seg Neuts % (Manual) 95.0 H (40.0-70.0) % Lymphocytes % (Manual) 4.0 L (13.4-35.0) % Seg Neutrophils # Man 23.7 H (1.8-7.7) K/mm3 Lymphocytes # (Manual) 1.0 L (1.2-5.4) K/mm3 Sodium 136 L (137-145) mmol/L Carbon Dioxide 20 L (22-30) mmol/L BUN 40 H (7-17) mg/dL Creatinine 4.6 H (0.7-1.2) mg/dL Glucose 126 H (65-100) mg/dL Lactic Acid 2.10 H* (0.7-2.0) mmol/L Calcium 7.7 L (8.4-10.2) mg/dL ALT 5 L (7-56) units/L Alkaline Phosphatase 172 H (35-129) units/L Troponin T 0.272 H* (0.00-0.029) ng/mL Albumin 1.6 L (3.9-5) g/dL LDL Cholesterol Direct 21 L (50-130) mg/dL HDL Cholesterol 31 L (40-59) mg/dL 11/29/19 11/29/19 Range/Units 15:05 15:49 WBC (4.5-11.0) K/mm3 RBC (3.65-5.03) M/mm3 Hgb (10.1-14.3) gm/dl Hct (30.3-42.9) % MCH (28-32) pg RDW (13.2-15.2) % Seg Neuts % (Manual) (40.0-70.0) % Lymphocytes % (Manual) (13.4-35.0) % Seg Neutrophils # Man (1.8-7.7) K/mm3 Lymphocytes # (Manual) (1.2-5.4) K/mm3 Sodium (137-145) mmol/L Carbon Dioxide (22-30) mmol/L BUN (7-17) mg/dL Creatinine (0.7-1.2) mg/dL Glucose (65-100) mg/dL Lactic Acid 2.50 H* 2.50 H* (0.7-2.0) mmol/L Calcium (8.4-10.2) mg/dL ALT (7-56) units/L Alkaline Phosphatase (35-129) units/L Troponin T (0.00-0.029) ng/mL Albumin (3.9-5) g/dL LDL Cholesterol Direct (50-130) mg/dL HDL Cholesterol (40-59) mg/dL Assessment and Plan - Patient Problems (1) Sepsis Current Visit: Yes Status: Acute Plan to address problem: Sepsis protocol: IV antibiotic therapy, IV fluid resuscitation therapy, monitor urine output every shift, serial lactic acid level, CBC, CMP, chest x-ray, urinalysis, (2) Metabolic acidosis Current Visit: Yes Status: Acute Plan to address problem: IV fluid resuscitation therapy, IV bicarbonate therapy, supportive care. Repeat BMP in a.m. (3) End stage renal disease Current Visit: Yes Status: Acute Plan to address problem: Nephrology consulted in ED, dialysis as per renal team, strict I/O's/daily weight, monitor urine output every shift, avoid nephrotoxic agents. (4) Symptomatic anemia Current Visit: Yes Status: Acute Plan to address problem: Packed red blood cell transfusion, repeat CBC, (5) Obesity hypoventilation syndrome Current Visit: Yes Status: Acute Plan to address problem: Submental oxygen, nebulizer therapy, pulse oximetry, noninvasive positive pressure ventilation as clinically indicated. (6) Hypertension Current Visit: Yes Status: Acute Qualifiers: Hypertension type: essential hypertension Qualified Code(s): I10 - Essential (primary) hypertension Plan to address problem: Monitor blood pressure every shift, hold antihypertensive medication for now, patient currently hypotensive. (7) Diabetes Current Visit: Yes Status: Acute Plan to address problem: Consistent carbohydrate diet when awake and alert only, sliding scale insulin therapy, Accu-Cheks, hypoglycemia protocol. (8) Nicotine dependence with withdrawal Current Visit: Yes Status: Acute Qualifiers: Nicotine product type: cigarettes Qualified Code(s): F17.213 - Nicotine dependence, cigarettes, with withdrawal Plan to address problem: Smoking cessation counseling, supportive care, +15 minutes. (9) Advance care planning Current Visit: Yes Status: Acute Plan to address problem: Patient is a full code, disease education conducted at bedside, patient's mother acknowledges understanding and agreement with care plan,. +30 minutes. (10) DVT prophylaxis Current Visit: Yes Status: Acute Plan to address problem: SCD to bilateral lower extremities while in bed, prophylactic heparin.
[2019-11-29] MEDS ORDERED: VANCOMYCIN 0 MG in SODIUM CHLORIDE 0.9% 500 ML 500 ML IV ONE (16:28)
[2019-11-29] MEDS ORDERED: ONDANSETRON 4 MG/2 ML INJ IV PRN (16:28)
[2019-11-29] MEDS ORDERED: ALBUTEROL 2.5 MG/3 ML NEBU IH PRN (16:28)
[2019-11-29] MEDS ORDERED: VANCOMYCIN PHARMACY TO DOSE IV SCH (17:00)
[2019-11-29] MEDS ORDERED: VANCOMYCIN 2,000 MG in SODIUM CHLORIDE 0.9% 500 ML 500 ML IV ONE (18:00)
[2019-11-29] MEDS ORDERED: ACETAMINOPHEN 325 MG TAB PO PRN (18:27)
[2019-11-29] MEDS ORDERED: SODIUM CHLORIDE 0.9% 500 ML 500 ML IV NR (18:29)
[2019-11-29] MEDS ORDERED: SODIUM BICARB 8.4% 50 MEQ/50 ML SYRINGE IV ONE (18:31)
[2019-11-29] MEDS: CEFEPIME/NS 2 GM/100 ML 2 GM/100 ML BAG IV SCH (19:15)
[2019-11-29] MEDS ORDERED: DEXTROSE 50% IN WATER (25GM) 50 ML SYRINGE IV PRN (22:09)
[2019-11-29] MEDS: ACETAMINOPHEN 325 MG TAB PO PRN (22:22)
[2019-11-29] MEDS: HEPARIN 5,000 UNIT/1 ML VIAL SUB-Q SCH (22:24)
[2019-11-29] MEDS: GABAPENTIN 100 MG CAP PO SCH (22:24)
[2019-11-30] MEDS: INSULIN LISPRO 100 UNIT/ML SUB-Q SCH ×3 (08:30→18:00)
--- NOTE | 2019-11-30 09:33 | Consultation ---
History of Present Illness - Reason for Consult Consult date: 11/30/19 end stage renal disease - History of Present Illness This is a 44 year-old woman with ESRD and multiple other co-morbidities who presents for concerns of hypotension and fevers. Patient usually dialyzes MWF at [facility]. Last HD attempted on 11/29/2019; did not complete treatment due to fevers and hypotension while on machine. Has had issues with hypotension on dialysis, but no recent dizziness, lightheadedness, cramping, chest pain on HD. Currently, patient denies dyspnea, edema, access issues, nausea, vomiting, headaches. She notes pain of her lower extremity wounds. Past History Past Medical History: diabetes, ESRD, hypertension, PVD, other (See HPI) Past Surgical History: Other (Permacath placement) Social history: single, lives with family, smoking. denies: alcohol abuse, prescription drug abuse Family history: diabetes, hypertension Medications and Allergies Allergies Allergy/AdvReac Type Severity Reaction Status Date / Time No Known Allergies Allergy Verified 03/12/19 12:23 Home Medications Medication Instructions Recorded Confirmed Last Taken Type ALBUTEROL NEB's [Proventil 0.083% 2.5 mg IH Q3HRT PRN #30 nebu 09/02/19 11/29/19 Unknown Rx NEBS] Acetaminophen [Acetaminophen TAB] 650 mg PO Q4H PRN tablet 09/13/19 11/29/19 10/26/19 Rx Gabapentin 100 mg PO Q8HR #90 capsule 09/27/19 11/29/19 Unknown Rx oxyCODONE /ACETAMINOPHEN [Percocet 1 tab PO Q6H PRN #14 tablet 09/27/19 10/26/19 11/29/19 08:00 Rx 5/325 mg] carvediloL [Coreg] 6.25 mg PO BID #60 tablet 10/28/19 11/29/19 Unknown Rx Active Meds: Active Medications Acetaminophen (Tylenol) 650 mg PO Q4H PRN PRN Reason: Pain MILD(1-3)/Fever >100.5/[place] Last Admin: 11/29/19 22:22 Dose: 650 mg Documented by: Albuterol (Proventil) 2.5 mg IH Q4HRT PRN PRN Reason: Shortness Of Breath Dextrose (D50w (25gm) Syringe) 0 ml IV Q30MIN PRN; Protocol PRN Reason: Hypoglycemia Gabapentin (Gabapentin) 100 mg PO Q8HR [facility] Last Admin: 11/29/19 22:24 Dose: 100 mg Documented by: Heparin Sodium (Porcine) (Heparin) 5,000 unit SUB-Q Q12HR [facility] Last Admin: 11/29/19 22:24 Dose: 5,000 unit Documented by: Cefepime HCl (Cefepime/Ns 2 Gm/100 Ml) 2 gm in 100 mls @ 200 mls/hr IV Q24H [facility]; Protocol Last Admin: 11/29/19 19:15 Dose: Not Given Documented by: Insulin Human Lispro (Humalog) 0 unit SUB-Q ACHS [facility]; Protocol Ondansetron HCl (Zofran) 4 mg IV Q8H PRN PRN Reason: Nausea And Vomiting Sodium Chloride (Sodium Chloride Flush Syringe 10 Ml) 10 ml IV BID [facility] Last Admin: 11/29/19 22:33 Dose: 10 ml Documented by: Sodium Chloride (Sodium Chloride Flush Syringe 10 Ml) 10 ml IV PRN PRN PRN Reason: LINE FLUSH Review of Systems Constitutional: lethargy, no fatigue, no weakness Ears, nose, mouth and throat: no sore throat, no headache Cardiovascular: no chest pain, no rapid/irregular heart beat, no edema Respiratory: no cough, no shortness of breath, no dyspnea on exertion Gastrointestinal: no abdominal pain, no nausea, no vomiting, no diarrhea Musculoskeletal: no muscle cramps Integumentary: redness, lesions Neurological: no weakness, no parathesias, no headaches Psychiatric: no anxiety Allergic/Immunologic: persistent infections Exam - Vital Signs Vital signs: Vital Signs Temp Pulse Resp Pulse Ox 98.8 F 113 H 14 100 11/29/19 12:39 11/29/19 12:39 11/29/19 12:39 11/29/19 12:39 - Physical Exam Narrative exam: Constitutional: mild distress due to pain Head: NC/AT Neck: supple Lungs: clear to auscultation CV: RRR, no M/R/G Abdomen: soft, non-tender, bowel sounds present Back: nontender Extremities: no edema, pulses WNL Skin: bilateral lower extremity wounds noted Neuro: no focal deficits, alert and oriented x4 Results - Lab Results 11/30/19 09:55 11/30/19 09:55 Most recent lab results Calcium 7.7 mg/dL (8.4-10.2) L 11/29/19 13:05 Assessment and Plan This is a 44 year old woman who presents with hypotension, fevers. # ESRD: - continue HD MWF, no indication for HD today based on labs, volume - daily labs - renally dose meds - avoid nephrotoxins - renal diet # Anemia: last hemoglobin 9.2. Continue ESAs with HD # HTN: UF as tolerated with. BP appropriate now. Sepsis/hypotension workup per primary # Secondary Hyperparathyroidism: continue home binders as needed
[2019-11-30] MEDS: ACETAMINOPHEN 325 MG TAB PO PRN (09:45)
[2019-11-30] MEDS: HEPARIN 5,000 UNIT/1 ML VIAL SUB-Q SCH ×2 (09:46→22:30)
[2019-11-30 10:12] LABS: Basophils # (Auto) 0.1 K/mm3 (0.0-0.1); Basophils % (Auto) 0.5 % (0.0-1.8); Eosinophils # (Auto) 0.5 K/mm3 (0.0-0.4); Eosinophils % (Auto) 2.7 % (0.0-4.3); Hematocrit 28.8 % (30.3-42.9); Hemoglobin 9.2 gm/dl (10.1-14.3); Lymphocytes % (Auto) 4.9 % (13.4-35.0); Mean Corpuscular HGB Conc 32 % (30-34); Mean Corpuscular Volume 84 fl (79-97); Monocytes # (Auto) 0.8 K/mm3 (0.0-0.8); Monocytes % (Auto) 4.1 % (0.0-7.3); Platelet Count 290 K/mm3 (140-440); Red Blood Count 3.45 M/mm3 (3.65-5.03); Red Cell Distribution Width 18.3 % (13.2-15.2)
[2019-11-30 10:25] LABS: Calcium 7.7 mg/dL (8.4-10.2)
[2019-11-30] MEDS: oxyCODONE /ACETAMINOPHEN 5-325MG TAB PO PRN ×2 (11:31→22:32)
[2019-11-30 13:14] LABS: Hepatitis B Surface Antigen Non-Reactive (Negative); Hepatitis C Virus Antibody Non-Reactive (NonReactive)
[2019-11-30] MEDS: GABAPENTIN 100 MG CAP PO SCH ×2 (14:10→22:30)
[2019-11-30] MEDS ORDERED: SODIUM CHLORIDE 0.9% 100 ML IV PRN (16:27)
--- NOTE | 2019-11-30 16:37 | Progress Note ---
Assessment and Plan / Sepsis possible from b/l chronic wound Presented with fever, elevated white count, hypotension and tachycardia Sepsis protocol: IV antibiotic therapy, IV fluid resuscitation therapy, ordered blood cx Cont empiric abx for now follow cx / End stage renal disease Nephrology consulted in ED, dialysis as per renal team, strict I/O's/daily weight, monitor urine output every shift, avoid nephrotoxic agents. /B/l chronic non healing wound - wound care consulted, ?infected cont abx / Symptomatic anemia PRBC 6.5 on admission s/p one unit Packed red blood cell transfusion, monitor CBC, / Morbid Obesity dietary consulted / Hypertension Monitor blood pressure every shift, hold antihypertensive medication for now, patient currently hypotensive. / Diabetes type 2 Consistent carbohydrate diet, sliding scale insulin therapy, Accu-Cheks, hypoglycemia protocol. /Nicotine dependence with withdrawal Smoking cessation counseling, supportive care, +15 minutes. / Advance care planning Patient is a full code, disease education conducted at bedside, patient's mother acknowledges understanding and agreement with care plan. / DVT prophylaxis SCD to bilateral lower extremities while in bed, Brief History: This is a 44 year-old woman with ESRD on HD MWF and multiple other co- morbidities who presents for concerns of hypotension and fevers. Last HD attempted on 11/29/2019; did not complete treatment due to fevers and hypotension while on machine. She c/o pain of her lower extremity wounds. On admission she also had Hb of 6.5 Subjective Date of service: 11/30/19 Interval history: Patient seen and examined getting wound care at bedside Denies any chest pain or SOB BP running low, discussed with mother at bedside Objective - Exam Narrative Exam: General appearance: Present: mild distress, obese - EENT Eyes: Present: PERRL ENT: hearing intact, clear oral mucosa - Neck Neck: Present: supple, normal ROM - Respiratory Respiratory effort: labored, accessory muscle use Respiratory: bilateral: diminished, rhonchi - Cardiovascular Heart Sounds: Present: S1 & S2. Absent: rub, click - Extremities Extremities: pulses symmetrical Extremity abnormal: edema, b/l LE multiple ulcers stage 1-3 Peripheral Pulses: abnormal (Capillary refill greater than 3.5 seconds) - Abdominal General gastrointestinal: Present: soft, non-tender, non-distended, normal bowel sounds Female genitourinary: Present: normal - Integumentary Integumentary: Present: clear, dry, clammy, decreased turgor - Musculoskeletal Musculoskeletal: generalized weakness - Psychiatric Psychiatric: no appropriate mood/affect, no intact judgment & insight, no memory intact - Neurologic Neurologic: CNII-XII intact, no focal deficits, moves all extremities, bedbound - Constitutional Vitals: Vital Signs - 12hr 11/30/19 11/30/19 11/30/19 04:41 04:51 05:00 Temperature Pulse Rate 104 H 104 H 104 H Pulse Rate [ From Monitor] Respiratory 24 24 24 Rate Blood Pressure 95/59 98/55 94/55 O2 Sat by Pulse 100 100 100 Oximetry 11/30/19 11/30/19 11/30/19 05:11 05:21 05:23 Temperature 98.5 F Pulse Rate 105 H 75 Pulse Rate [ From Monitor] Respiratory 24 25 H Rate Blood Pressure 94/55 96/57 O2 Sat by Pulse 100 100 Oximetry 11/30/19 11/30/19 11/30/19 05:30 05:41 05:51 Temperature Pulse Rate 105 H 105 H 108 H Pulse Rate [ From Monitor] Respiratory 22 22 21 Rate Blood Pressure 96/58 98/55 106/63 O2 Sat by Pulse 100 100 Oximetry 11/30/19 11/30/19 11/30/19 05:55 06:00 06:11 Temperature 98.2 F Pulse Rate 107 H 107 H Pulse Rate [ From Monitor] Respiratory 24 24 Rate Blood Pressure 115/70 115/70 O2 Sat by Pulse 100 100 Oximetry 11/30/19 11/30/19 11/30/19 06:21 06:30 06:40 Temperature 98.5 F Pulse Rate 108 H 108 H Pulse Rate [ From Monitor] Respiratory 24 23 Rate Blood Pressure 101/62 101/66 O2 Sat by Pulse 100 Oximetry 11/30/19 11/30/19 11/30/19 06:41 06:51 07:00 Temperature Pulse Rate 108 H 110 H 85 Pulse Rate [ From Monitor] Respiratory 22 23 23 Rate Blood Pressure 101/66 118/82 107/42 O2 Sat by Pulse 100 100 100 Oximetry 11/30/19 11/30/19 11/30/19 07:11 07:19 07:21 Temperature 98.5 F Pulse Rate 85 114 H Pulse Rate [ From Monitor] Respiratory 23 23 Rate Blood Pressure 118/82 117/76 O2 Sat by Pulse 100 98 Oximetry 11/30/19 11/30/19 11/30/19 07:30 07:41 07:51 Temperature Pulse Rate 113 H 114 H 114 H Pulse Rate [ From Monitor] Respiratory 22 19 17 Rate Blood Pressure 128/74 128/74 123/72 O2 Sat by Pulse 100 100 99 Oximetry 11/30/19 11/30/19 11/30/19 08:00 08:11 08:21 Temperature 98.2 F Pulse Rate 116 H 117 H 120 H Pulse Rate [ From Monitor] Respiratory 17 21 19 Rate Blood Pressure 125/77 125/77 113/71 O2 Sat by Pulse 99 100 100 Oximetry 11/30/19 11/30/19 11/30/19 08:30 08:41 08:51 Temperature Pulse Rate 121 H 120 H 120 H Pulse Rate [ From Monitor] Respiratory 15 14 16 Rate Blood Pressure 119/66 119/66 112/57 O2 Sat by Pulse 99 99 100 Oximetry 11/30/19 11/30/19 11/30/19 09:00 09:11 09:21 Temperature Pulse Rate 101 H 120 H 120 H Pulse Rate [ From Monitor] Respiratory 13 24 24 Rate Blood Pressure 102/55 102/55 107/57 O2 Sat by Pulse 99 99 100 Oximetry 11/30/19 11/30/19 11/30/19 09:31 09:41 09:51 Temperature Pulse Rate 121 H 99 H 122 H Pulse Rate [ From Monitor] Respiratory 16 16 15 Rate Blood Pressure 107/57 50/35 103/59 O2 Sat by Pulse 100 98 100 Oximetry 11/30/19 11/30/19 11/30/19 10:01 10:11 10:21 Temperature Pulse Rate 121 H 121 H 123 H Pulse Rate [ From Monitor] Respiratory 19 14 22 Rate Blood Pressure 103/59 103/59 103/59 O2 Sat by Pulse 92 98 99 Oximetry 11/30/19 11/30/19 11/30/19 10:31 10:41 10:51 Temperature Pulse Rate 124 H 124 H 122 H Pulse Rate [ From Monitor] Respiratory 26 H 17 16 Rate Blood Pressure 103/59 61/15 61/15 O2 Sat by Pulse 99 99 100 Oximetry 11/30/19 11/30/19 11/30/19 11:01 11:11 11:21 Temperature Pulse Rate 122 H 123 H Pulse Rate [ From Monitor] Respiratory 13 24 22 Rate Blood Pressure 61/15 61/15 61/15 O2 Sat by Pulse 99 68 L 99 Oximetry 11/30/19 11/30/19 11/30/19 11:31 11:41 11:51 Temperature Pulse Rate 104 H 124 H Pulse Rate [ From Monitor] Respiratory 15 15 19 Rate Blood Pressure 61/15 61/15 61/15 O2 Sat by Pulse 99 100 100 Oximetry 11/30/19 11/30/19 11/30/19 12:00 12:01 12:11 Temperature Pulse Rate 98 H 83 125 H Pulse Rate [ 102 H From Monitor] Respiratory 22 12 16 Rate Blood Pressure 135/89 135/89 O2 Sat by Pulse 100 94 98 Oximetry 11/30/19 11/30/19 11/30/19 12:21 12:31 12:41 Temperature Pulse Rate 188 H 106 H 105 H Pulse Rate [ From Monitor] Respiratory 25 H 12 16 Rate Blood Pressure 134/67 138/39 134/67 O2 Sat by Pulse 98 100 97 Oximetry 11/30/19 11/30/19 11/30/19 12:51 13:01 14:37 Temperature 98.4 F Pulse Rate 127 H 126 H Pulse Rate [ From Monitor] Respiratory 15 22 Rate Blood Pressure 140/77 140/77 O2 Sat by Pulse 100 97 Oximetry 11/30/19 16:00 Temperature 97.3 F L Pulse Rate Pulse Rate [ From Monitor] Respiratory Rate Blood Pressure O2 Sat by Pulse Oximetry - Labs CBC & Chem 7: 12/02/19 03:50 12/02/19 03:50 Labs: Abnormal lab results 11/29/19 11/29/19 11/30/19 Range/Units 16:55 22:49 07:49 WBC (4.5-11.0) K/mm3 RBC (3.65-5.03) M/mm3 Hgb (10.1-14.3) gm/dl Hct (30.3-42.9) % MCH (28-32) pg RDW (13.2-15.2) % Lymph % (Auto) (13.4-35.0) % Lymph # (1.2-5.4) K/mm3 Eos # (0.0-0.4) K/mm3 Seg Neutrophils % (40.0-70.0) % Seg Neutrophils # (1.8-7.7) K/mm3 Carbon Dioxide (22-30) mmol/L BUN (7-17) mg/dL Creatinine (0.7-1.2) mg/dL Glucose (65-100) mg/dL POC Glucose 122 H 140 H (70-105) Calcium (8.4-10.2) mg/dL Crossmatch See Detail 11/30/19 11/30/19 11/30/19 Range/Units 09:55 09:55 12:35 WBC 19.5 H (4.5-11.0) K/mm3 RBC 3.45 L (3.65-5.03) M/mm3 Hgb 9.2 L (10.1-14.3) gm/dl Hct 28.8 L D (30.3-42.9) % MCH 27 L (28-32) pg RDW 18.3 H (13.2-15.2) % Lymph % (Auto) 4.9 L (13.4-35.0) % Lymph # 1.0 L (1.2-5.4) K/mm3 Eos # 0.5 H (0.0-0.4) K/mm3 Seg Neutrophils % 87.8 H (40.0-70.0) % Seg Neutrophils # 17.1 H (1.8-7.7) K/mm3 Carbon Dioxide 20 L (22-30) mmol/L BUN 45 H (7-17) mg/dL Creatinine 4.7 H (0.7-1.2) mg/dL Glucose 154 H (65-100) mg/dL POC Glucose 180 H (70-105) Calcium 7.7 L (8.4-10.2) mg/dL Crossmatch 11/30/19 Range/Units 16:30 WBC (4.5-11.0) K/mm3 RBC (3.65-5.03) M/mm3 Hgb (10.1-14.3) gm/dl Hct (30.3-42.9) % MCH (28-32) pg RDW (13.2-15.2) % Lymph % (Auto) (13.4-35.0) % Lymph # (1.2-5.4) K/mm3 Eos # (0.0-0.4) K/mm3 Seg Neutrophils % (40.0-70.0) % Seg Neutrophils # (1.8-7.7) K/mm3 Carbon Dioxide (22-30) mmol/L BUN (7-17) mg/dL Creatinine (0.7-1.2) mg/dL Glucose (65-100) mg/dL POC Glucose 243 H (70-105) Calcium (8.4-10.2) mg/dL Crossmatch
[2019-11-30] MEDS: CEFEPIME/NS 2 GM/100 ML 2 GM/100 ML BAG IV SCH (19:09)
[2019-12-01 04:49] LABS: Basophils # (Auto) 0.1 K/mm3 (0.0-0.1); Basophils % (Auto) 0.3 % (0.0-1.8); Eosinophils # (Auto) 0.8 K/mm3 (0.0-0.4); Eosinophils % (Auto) 4.3 % (0.0-4.3); Hematocrit 25.8 % (30.3-42.9); Hemoglobin 8.3 gm/dl (10.1-14.3); Lymphocytes # (Auto) 0.9 K/mm3 (1.2-5.4); Lymphocytes % (Auto) 4.8 % (13.4-35.0); Mean Corpuscular HGB Conc 32 % (30-34); Mean Corpuscular Volume 85 fl (79-97); Monocytes # (Auto) 0.4 K/mm3 (0.0-0.8); Monocytes % (Auto) 2.2 % (0.0-7.3); Platelet Count 331 K/mm3 (140-440); Red Blood Count 3.03 M/mm3 (3.65-5.03); Red Cell Distribution Width 18.4 % (13.2-15.2)
[2019-12-01 05:12] LABS: Calcium 7.8 mg/dL (8.4-10.2)
[2019-12-01] MEDS: GABAPENTIN 100 MG CAP PO SCH ×5 (06:08→21:29)
[2019-12-01] MEDS: INSULIN LISPRO 100 UNIT/ML SUB-Q SCH ×4 (07:30→21:33)
[2019-12-01] MEDS: HEPARIN 5,000 UNIT/1 ML VIAL SUB-Q SCH ×2 (10:32→21:29)
--- NOTE | 2019-12-01 11:32 | Progress Note ---
Assessment and Plan This is a 44 year old woman who presents with hypotension, fevers. # ESRD: - continue HD MWF, plan for HD today if CVC able to be used - CVC is dislodged; have placed consult for IR (Dr. Brink), assistance is appreciated - daily labs - renally dose meds - avoid nephrotoxins - renal diet # Anemia: last hemoglobin 8.6, down from 9.2. Continue ESAs with HD # HTN: UF as tolerated with HD. BP remains soft. Sepsis/hypotension workup per primary # Secondary Hyperparathyroidism: continue home binders as needed Subjective Date of service: 12/01/19 Interval history: CVC noted to be dislodged and notified by outpatient dialysis unit. Patient alert but sleeping this AM. Continues to have pain in lower extremities. Objective - Exam Narrative Exam: Constitutional: no acute distress Head: NC/AT Neck: supple Lungs: clear to auscultation CV: RRR, no M/R/G Abdomen: soft, non-tender, bowel sounds present Back: nontender Extremities: no edema, pulses WNL Skin: bilateral lower extremity wounds noted Neuro: no focal deficits, alert and oriented x4 - Vital Signs Vital signs: Vital Signs - 12hr 11/30/19 11/30/19 11/30/19 23:31 23:32 23:40 Temperature Pulse Rate 130 H Pulse Rate [ From Monitor] Respiratory 21 22 Rate Blood Pressure 110/64 122/70 O2 Sat by Pulse 100 100 Oximetry 11/30/19 12/01/19 12/01/19 23:51 00:00 00:01 Temperature 97.9 F Pulse Rate 131 H 119 H 113 H Pulse Rate [ 117 H From Monitor] Respiratory 22 21 27 H Rate Blood Pressure 112/76 122/75 O2 Sat by Pulse 100 100 100 Oximetry 12/01/19 12/01/19 12/01/19 00:11 00:21 00:31 Temperature Pulse Rate 132 H 132 H 133 H Pulse Rate [ From Monitor] Respiratory 20 24 18 Rate Blood Pressure 122/75 105/59 120/42 O2 Sat by Pulse 100 100 100 Oximetry 12/01/19 12/01/19 12/01/19 00:41 00:51 01:01 Temperature Pulse Rate 117 H 119 H 117 H Pulse Rate [ From Monitor] Respiratory 20 16 21 Rate Blood Pressure 120/42 117/75 109/74 O2 Sat by Pulse 100 100 100 Oximetry 12/01/19 12/01/19 12/01/19 01:11 01:21 01:31 Temperature Pulse Rate 132 H 131 H 130 H Pulse Rate [ From Monitor] Respiratory 19 26 H 19 Rate Blood Pressure 109/74 108/70 94/55 O2 Sat by Pulse 100 100 99 Oximetry 12/01/19 12/01/19 12/01/19 01:41 01:51 02:00 Temperature Pulse Rate 127 H 126 H 125 H Pulse Rate [ From Monitor] Respiratory 25 H 26 H 24 Rate Blood Pressure 94/55 90/52 90/48 O2 Sat by Pulse 100 100 100 Oximetry 12/01/19 12/01/19 12/01/19 02:11 02:21 02:30 Temperature Pulse Rate 102 H 124 H 123 H Pulse Rate [ From Monitor] Respiratory 24 23 22 Rate Blood Pressure 90/48 90/49 93/51 O2 Sat by Pulse 100 100 100 Oximetry 12/01/19 12/01/19 12/01/19 02:41 02:51 03:00 Temperature Pulse Rate 123 H 98 H 120 H Pulse Rate [ From Monitor] Respiratory 26 H 25 H 24 Rate Blood Pressure 93/51 86/49 75/41 O2 Sat by Pulse 100 100 Oximetry 12/01/19 12/01/19 12/01/19 03:11 03:21 03:30 Temperature Pulse Rate 119 H 120 H 119 H Pulse Rate [ From Monitor] Respiratory 25 H 25 H 25 H Rate Blood Pressure 75/41 77/41 78/44 O2 Sat by Pulse 100 100 Oximetry 12/01/19 12/01/19 12/01/19 03:41 03:51 04:00 Temperature 100.2 F H Pulse Rate 100 H 100 H 119 H Pulse Rate [ 119 H From Monitor] Respiratory 23 24 25 H Rate Blood Pressure 78/44 87/39 78/42 O2 Sat by Pulse 100 97 95 Oximetry 12/01/19 12/01/19 12/01/19 04:10 04:21 04:30 Temperature Pulse Rate 118 H 118 H 101 H Pulse Rate [ From Monitor] Respiratory 23 24 25 H Rate Blood Pressure 78/41 93/38 87/40 O2 Sat by Pulse 100 98 Oximetry 12/01/19 12/01/19 12/01/19 04:41 04:51 05:00 Temperature Pulse Rate 98 H 97 H 118 H Pulse Rate [ From Monitor] Respiratory 24 23 24 Rate Blood Pressure 87/40 78/36 81/38 O2 Sat by Pulse 100 100 98 Oximetry 12/01/19 12/01/19 12/01/19 05:11 05:21 05:30 Temperature Pulse Rate 117 H 120 H Pulse Rate [ From Monitor] Respiratory 24 25 H 25 H Rate Blood Pressure 81/38 77/37 87/42 O2 Sat by Pulse 100 100 99 Oximetry 12/01/19 12/01/19 12/01/19 05:41 05:51 06:00 Temperature Pulse Rate Pulse Rate [ From Monitor] Respiratory 26 H 26 H 19 Rate Blood Pressure 87/42 81/39 82/45 O2 Sat by Pulse 100 100 100 Oximetry 12/01/19 12/01/19 12/01/19 06:10 06:21 06:30 Temperature Pulse Rate Pulse Rate [ From Monitor] Respiratory 25 H 22 Rate Blood Pressure 98/38 92/48 88/48 O2 Sat by Pulse 99 99 99 Oximetry 12/01/19 12/01/19 12/01/19 06:40 07:00 08:00 Temperature 99.3 F Pulse Rate 99 H 118 H Pulse Rate [ From Monitor] Respiratory 26 H 20 Rate Blood Pressure 93/51 81/43 80/41 O2 Sat by Pulse 96 95 96 Oximetry 12/01/19 09:00 Temperature Pulse Rate 114 H Pulse Rate [ From Monitor] Respiratory Rate Blood Pressure 83/41 O2 Sat by Pulse 95 Oximetry - Lab 12/01/19 04:35 12/01/19 04:20 Most recent lab results Calcium 7.8 mg/dL (8.4-10.2) L 12/01/19 04:20 Medications & Allergies - Medications Allergies/Adverse Reactions: Allergies No Known Allergies Allergy (Verified 03/12/19 12:23) Home Medications: Home Medications Medication Instructions Recorded Confirmed Last Taken Type ALBUTEROL NEB's [Proventil 0.083% 2.5 mg IH Q3HRT PRN #30 nebu 09/02/19 11/29/19 Unknown Rx NEBS] Acetaminophen [Acetaminophen TAB] 650 mg PO Q4H PRN tablet 09/13/19 11/29/19 10/26/19 Rx Gabapentin 100 mg PO Q8HR #90 capsule 09/27/19 11/29/19 Unknown Rx oxyCODONE /ACETAMINOPHEN [Percocet 1 tab PO Q6H PRN #14 tablet 09/27/19 10/26/19 11/29/19 08:00 Rx 5/325 mg] carvediloL [Coreg] 6.25 mg PO BID #60 tablet 10/28/19 11/29/19 Unknown Rx Active Medications: Generic Name Dose Route Start Last Admin Trade Name Freq PRN Reason Stop Dose Admin Acetaminophen 650 mg 11/29/19 16:28 11/30/19 09:45 Tylenol PO 650 mg Q4H PRN Administration Pain MILD(1-3)/Fever >100.5/[place] Albuterol 2.5 mg 11/29/19 16:28 Proventil IH Q4HRT PRN Shortness Of Breath Dextrose 0 ml 11/29/19 22:09 D50w (25gm) Syringe IV Q30MIN PRN Hypoglycemia Protocol Epoetin Arias 10,000 unit 11/30/19 16:27 Procrit IV AMBER PRN hemodialysis Gabapentin 100 mg 11/29/19 22:00 12/01/19 06:08 Gabapentin PO 100 mg Q8HR [facility] Administration Heparin Sodium (Porcine) 5,000 unit 11/29/19 22:00 12/01/19 10:32 Heparin SUB-Q 5,000 unit Q12HR [facility] Administration Cefepime HCl 2 gm in 100 mls @ 200 mls/hr 11/29/19 17:00 11/30/19 19:09 Cefepime/Ns 2 Gm/100 Ml IV 200 mls/hr Q24H [facility] Administration Protocol Sodium Chloride 100 mls @ 999 mls/hr 11/30/19 16:27 Nacl 0.9% IV AMBER PRN Hypotension Vancomycin HCl 1 gm in 250 mls @ 167.007 mls/hr 12/01/19 20:00 Vancomycin/Ns 1 Gm/250 Ml IV MoWeFr [facility] Insulin Human Lispro 0 unit 11/30/19 07:30 12/01/19 07:52 Humalog SUB-Q Not Given ACHS [facility] Protocol Ondansetron HCl 4 mg 11/29/19 16:28 Zofran IV Q8H PRN Nausea And Vomiting Oxycodone/Acetaminophen 1 tab 11/30/19 09:59 11/30/19 22:32 Percocet 5/325 PO 1 tab Q6H PRN Administration Pain, Moderate (4-6) Sodium Chloride 10 ml 11/29/19 22:00 11/30/19 22:32 Sodium Chloride Flush Syringe 10 Ml IV 10 ml BID [facility] Administration Sodium Chloride 10 ml 11/29/19 16:28 Sodium Chloride Flush Syringe 10 Ml IV PRN PRN LINE FLUSH
--- NOTE | 2019-12-01 13:13 | Progress Note ---
Assessment and Plan / Sepsis possible from b/l chronic wound Presented with fever, elevated white count, hypotension and tachycardia Sepsis protocol: IV antibiotic therapy, IV fluid resuscitation therapy, ordered blood cx Cont empiric abx for now, negative blood cx cont to have fever, consult ID / End stage renal disease Nephrology consulted in ED, dialysis as per renal team, strict I/O's/daily weight, monitor urine output every shift, avoid nephrotoxic agents. /Dislodged HD catheter, IR consulted /B/l chronic non healing wound - wound care consulted, ?infected cont abx / Symptomatic anemia PRBC 6.5 on admission s/p one unit Packed red blood cell transfusion, monitor CBC, /hypotension, likely from anemia and underlying sepsis ? cont to monitor / Morbid Obesity dietary consulted / Hypertension Monitor blood pressure every shift, hold antihypertensive medication for now as patient currently hypotensive. / Diabetes type 2 Consistent carbohydrate diet, sliding scale insulin therapy, Accu-Cheks, hypoglycemia protocol. /Nicotine dependence with withdrawal Smoking cessation counseling, supportive care, +15 minutes. / Advance care planning Patient is a full code, disease education conducted at bedside, patient's mother acknowledges understanding and agreement with care plan. / DVT prophylaxis SCD to bilateral lower extremities while in bed Disposition: still spiking fever, need HD access Brief History: This is a 44 year-old woman with ESRD on HD MWF and multiple other co- morbidities who presents for concerns of hypotension and fevers. Last HD attempted on 11/29/2019; did not complete treatment due to fevers and hypotension while on machine. She c/o pain of her lower extremity wounds. On admission she also had Hb of 6.5 Subjective Date of service: 12/01/19 Interval history: Spiking low grade fever Patient seen and examined Denies any chest pain or SOB BP running low, discussed with mother at bedside Objective - Exam Narrative Exam: General appearance: Present: mild distress, obese - EENT Eyes: Present: PERRL ENT: hearing intact, clear oral mucosa - Neck Neck: Present: supple, normal ROM - Respiratory Respiratory effort: labored, accessory muscle use Respiratory: bilateral: diminished, rhonchi - Cardiovascular Heart Sounds: Present: S1 & S2. Absent: rub, click - Extremities Extremities: pulses symmetrical Extremity abnormal: edema, b/l LE multiple ulcers stage 1-3 Peripheral Pulses: abnormal (Capillary refill greater than 3.5 seconds) - Abdominal General gastrointestinal: Present: soft, non-tender, non-distended, normal bowel sounds Female genitourinary: Present: normal - Integumentary Integumentary: Present: clear, dry, clammy, decreased turgor - Musculoskeletal Musculoskeletal: generalized weakness - Psychiatric Psychiatric: no appropriate mood/affect, no intact judgment & insight, no memory intact - Neurologic Neurologic: CNII-XII intact, no focal deficits, moves all extremities, bedbound - Constitutional Vitals: Vital Signs - 12hr 12/01/19 12/01/19 12/01/19 01:21 01:31 01:41 Temperature Pulse Rate 131 H 130 H 127 H Pulse Rate [ From Monitor] Respiratory 26 H 19 25 H Rate Blood Pressure 108/70 94/55 94/55 O2 Sat by Pulse 100 99 100 Oximetry 12/01/19 12/01/19 12/01/19 01:51 02:00 02:11 Temperature Pulse Rate 126 H 125 H 102 H Pulse Rate [ From Monitor] Respiratory 26 H 24 24 Rate Blood Pressure 90/52 90/48 90/48 O2 Sat by Pulse 100 100 100 Oximetry 12/01/19 12/01/19 12/01/19 02:21 02:30 02:41 Temperature Pulse Rate 124 H 123 H 123 H Pulse Rate [ From Monitor] Respiratory 23 22 26 H Rate Blood Pressure 90/49 93/51 93/51 O2 Sat by Pulse 100 100 100 Oximetry 12/01/19 12/01/19 12/01/19 02:51 03:00 03:11 Temperature Pulse Rate 98 H 120 H 119 H Pulse Rate [ From Monitor] Respiratory 25 H 24 25 H Rate Blood Pressure 86/49 75/41 75/41 O2 Sat by Pulse 100 100 Oximetry 12/01/19 12/01/19 12/01/19 03:21 03:30 03:41 Temperature Pulse Rate 120 H 119 H 100 H Pulse Rate [ From Monitor] Respiratory 25 H 25 H 23 Rate Blood Pressure 77/41 78/44 78/44 O2 Sat by Pulse 100 100 Oximetry 12/01/19 12/01/19 12/01/19 03:51 04:00 04:10 Temperature 100.2 F H Pulse Rate 100 H 119 H 118 H Pulse Rate [ 119 H From Monitor] Respiratory 24 25 H 23 Rate Blood Pressure 87/39 78/42 78/41 O2 Sat by Pulse 97 95 Oximetry 12/01/19 12/01/19 12/01/19 04:21 04:30 04:41 Temperature Pulse Rate 118 H 101 H 98 H Pulse Rate [ From Monitor] Respiratory 24 25 H 24 Rate Blood Pressure 93/38 87/40 87/40 O2 Sat by Pulse 100 98 100 Oximetry 12/01/19 12/01/19 12/01/19 04:51 05:00 05:11 Temperature Pulse Rate 97 H 118 H 117 H Pulse Rate [ From Monitor] Respiratory 23 24 24 Rate Blood Pressure 78/36 81/38 81/38 O2 Sat by Pulse 100 98 100 Oximetry 12/01/19 12/01/19 12/01/19 05:21 05:30 05:41 Temperature Pulse Rate 120 H Pulse Rate [ From Monitor] Respiratory 25 H 25 H 26 H Rate Blood Pressure 77/37 87/42 87/42 O2 Sat by Pulse 100 99 100 Oximetry 12/01/19 12/01/19 12/01/19 05:51 06:00 06:10 Temperature Pulse Rate Pulse Rate [ From Monitor] Respiratory 26 H 19 Rate Blood Pressure 81/39 82/45 98/38 O2 Sat by Pulse 100 100 99 Oximetry 12/01/19 12/01/19 12/01/19 06:21 06:30 06:40 Temperature Pulse Rate Pulse Rate [ From Monitor] Respiratory 25 H 22 26 H Rate Blood Pressure 92/48 88/48 93/51 O2 Sat by Pulse 99 99 96 Oximetry 12/01/19 12/01/19 12/01/19 07:00 08:00 09:00 Temperature 99.3 F Pulse Rate 99 H 118 H 114 H Pulse Rate [ From Monitor] Respiratory 20 Rate Blood Pressure 81/43 80/41 83/41 O2 Sat by Pulse 95 96 95 Oximetry - Labs CBC & Chem 7: 12/02/19 03:50 12/02/19 03:50 Labs: Abnormal lab results 11/29/19 11/30/19 11/30/19 Range/Units 16:55 16:30 22:00 WBC (4.5-11.0) K/mm3 RBC (3.65-5.03) M/mm3 Hgb (10.1-14.3) gm/dl Hct (30.3-42.9) % RDW (13.2-15.2) % Lymph % (Auto) (13.4-35.0) % Lymph # (1.2-5.4) K/mm3 Eos # (0.0-0.4) K/mm3 Seg Neutrophils % (40.0-70.0) % Seg Neutrophils # (1.8-7.7) K/mm3 Carbon Dioxide (22-30) mmol/L BUN (7-17) mg/dL Creatinine (0.7-1.2) mg/dL Glucose (65-100) mg/dL POC Glucose 243 H 204 H (70-105) Calcium (8.4-10.2) mg/dL Crossmatch See Detail 12/01/19 12/01/19 Range/Units 04:20 04:35 WBC 19.0 H (4.5-11.0) K/mm3 RBC 3.03 L (3.65-5.03) M/mm3 Hgb 8.3 L (10.1-14.3) gm/dl Hct 25.8 L (30.3-42.9) % RDW 18.4 H (13.2-15.2) % Lymph % (Auto) 4.8 L (13.4-35.0) % Lymph # 0.9 L (1.2-5.4) K/mm3 Eos # 0.8 H (0.0-0.4) K/mm3 Seg Neutrophils % 88.4 H (40.0-70.0) % Seg Neutrophils # 16.8 H (1.8-7.7) K/mm3 Carbon Dioxide 20 L (22-30) mmol/L BUN 49 H (7-17) mg/dL Creatinine 5.6 H (0.7-1.2) mg/dL Glucose 147 H (65-100) mg/dL POC Glucose (70-105) Calcium 7.8 L (8.4-10.2) mg/dL Crossmatch
[2019-12-01] MEDS: oxyCODONE /ACETAMINOPHEN 5-325MG TAB PO PRN ×2 (16:09→21:30)
[2019-12-01] MEDS: CEFEPIME/NS 2 GM/100 ML 2 GM/100 ML BAG IV SCH (17:00)
--- NOTE | 2019-12-01 17:16 | Consultation ---
History of Present Illness - Reason for Consult Consult date: 12/01/19 - History of Present Illness 44-year-old female with past medical history of ESRD on HD, HTN, DM 2, CHF, COPD, morbid obesity, peripheral vascular disease admitted to the hospital for lethargy. She was brought in by her mother who notes that at dialysis she was unable to complete the full treatment due to a fever of 102. She was found to be hypotensive at the time as well, and was brought to hospital by EMS. She is known to our service for chronic leg wounds, which are frequently colonized with GNR. Afebrile since admission with a white count of 19. Currently receiving vancomycin and cefepime. Blood cultures negative so far. Imaging personally reviewed: Chest x-ray: No acute findings Review of Systems: Bold if positive, otherwise negative General: fevers, chills, rigors HEENT: visual disturbance, diplopia, eye pain Respiratory: cough, sputum, hemoptysis, shortness of breath Cardiovascular: chest pain, syncope Gastrointestinal: nausea, vomiting, diarrhea, abdominal pain Genitourinary: dysuria, hematuria, flank pain Musculoskeletal: neck pain, back pain, joint pain, edema Neurologic: headaches, seizures Hematologic: easy bruising or bleeding Endocrine: night sweats, acute weight loss Skin: rash, jaundice, redness Psychiatric: suicidal, homicidal ideation Past History Past Medical History: diabetes, ESRD, hypertension, PVD, other (See HPI) Past Surgical History: Other (Permacath placement) Social history: single, lives with family, smoking. denies: alcohol abuse, prescription drug abuse Family history: diabetes, hypertension Medications and Allergies Allergies Allergy/AdvReac Type Severity Reaction Status Date / Time No Known Allergies Allergy Verified 03/12/19 12:23 Home Medications Medication Instructions Recorded Confirmed Last Taken Type ALBUTEROL NEB's [Proventil 0.083% 2.5 mg IH Q3HRT PRN #30 nebu 09/02/19 11/29/19 Unknown Rx NEBS] Acetaminophen [Acetaminophen TAB] 650 mg PO Q4H PRN tablet 09/13/19 11/29/19 10/26/19 Rx Gabapentin 100 mg PO Q8HR #90 capsule 09/27/19 11/29/19 Unknown Rx oxyCODONE /ACETAMINOPHEN [Percocet 1 tab PO Q6H PRN #14 tablet 09/27/19 10/26/19 11/29/19 08:00 Rx 5/325 mg] carvediloL [Coreg] 6.25 mg PO BID #60 tablet 10/28/19 11/29/19 Unknown Rx Active Meds: Active Medications Acetaminophen (Tylenol) 650 mg PO Q4H PRN PRN Reason: Pain MILD(1-3)/Fever >100.5/[place] Last Admin: 11/30/19 09:45 Dose: 650 mg Documented by: Albuterol (Proventil) 2.5 mg IH Q4HRT PRN PRN Reason: Shortness Of Breath Dextrose (D50w (25gm) Syringe) 0 ml IV Q30MIN PRN; Protocol PRN Reason: Hypoglycemia Epoetin Arias (Procrit) 10,000 unit IV AMBER PRN PRN Reason: hemodialysis Gabapentin (Gabapentin) 100 mg PO Q8HR [facility] Last Admin: 12/01/19 13:26 Dose: 100 mg Documented by: Heparin Sodium (Porcine) (Heparin) 5,000 unit SUB-Q Q12HR [facility] Last Admin: 12/01/19 10:32 Dose: 5,000 unit Documented by: Cefepime HCl (Cefepime/Ns 2 Gm/100 Ml) 2 gm in 100 mls @ 200 mls/hr IV Q24H [facility]; Protocol Last Admin: 11/30/19 19:09 Dose: 200 mls/hr Documented by: Sodium Chloride (Nacl 0.9%) 100 mls @ 999 mls/hr IV AMBER PRN PRN Reason: Hypotension Vancomycin HCl (Vancomycin/Ns 1 Gm/250 Ml) 1 gm in 250 mls @ 167.007 mls/hr IV MoWeFr [facility] Insulin Human Lispro (Humalog) 0 unit SUB-Q ACHS [facility]; Protocol Last Admin: 12/01/19 11:30 Dose: Not Given Documented by: Ondansetron HCl (Zofran) 4 mg IV Q8H PRN PRN Reason: Nausea And Vomiting Oxycodone/Acetaminophen (Percocet 5/325) 1 tab PO Q6H PRN PRN Reason: Pain, Moderate (4-6) Last Admin: 12/01/19 16:09 Dose: 1 tab Documented by: Sodium Chloride (Sodium Chloride Flush Syringe 10 Ml) 10 ml IV BID [facility] Last Admin: 02/11/20 22:32 Dose: 10 ml Documented by: Sodium Chloride (Sodium Chloride Flush Syringe 10 Ml) 10 ml IV PRN PRN PRN Reason: LINE FLUSH Physical Examination - Physical Exam Narrative exam: Physical Exam: Constitutional: Drowsy, cooperative. No acute distress Head, Ears, Nose: Normocephalic, atraumatic. External ears, nose normal Eyes: Conjunctivae/corneas clear. No icterus. No ptosis. Neck: Supple, no meningeal signs Oral: dentition fair, no thrush Cardiovascular: S1, S2 normal. L chest CVC Respiratory: Good air entry, clear to auscultation bilaterally GI: Soft, non-tender; bowel sounds normal. No peritoneal signs. Musculoskeletal: No pedal edema, no cyanosis. Skin: Bilateral chronic leg wounds with L foot Hem/Lymphatic: No palpable cervical or supraclavicular nodes. No lymphangitis Psych: Mood ok. Affect normal Neurological: Awake, alert, oriented. No gross abnormality - Constitutional Vitals: Vital Signs Temp Pulse Resp BP Pulse Ox 98.2 F 123 H 21 120/79 99 12/01/19 13:50 12/01/19 17:00 12/01/19 13:50 12/01/19 17:00 12/01/19 13:50 Temperature -Last 24 Hours Temperature 98.2 F Temperature 98.2 F Temperature 99.3 F Temperature 100.2 F Temperature 97.9 F Temperature 98.4 F Results - Labs CBC & Chem 7: 12/01/19 04:35 12/01/19 04:20 Labs: Abnormal lab results 11/30/19 12/01/19 12/01/19 Range/Units 22:00 04:20 04:35 WBC 19.0 H (4.5-11.0) K/mm3 RBC 3.03 L (3.65-5.03) M/mm3 Hgb 8.3 L (10.1-14.3) gm/dl Hct 25.8 L (30.3-42.9) % RDW 18.4 H (13.2-15.2) % Lymph % (Auto) 4.8 L (13.4-35.0) % Lymph # 0.9 L (1.2-5.4) K/mm3 Eos # 0.8 H (0.0-0.4) K/mm3 Seg Neutrophils % 88.4 H (40.0-70.0) % Seg Neutrophils # 16.8 H (1.8-7.7) K/mm3 Carbon Dioxide 20 L (22-30) mmol/L BUN 49 H (7-17) mg/dL Creatinine 5.6 H (0.7-1.2) mg/dL Glucose 147 H (65-100) mg/dL POC Glucose 204 H (70-105) Calcium 7.8 L (8.4-10.2) mg/dL Assessment and Plan Cultures: 11/29/2019 blood cultures: NGTD A&P: 44-year-old female with past medical history of ESRD on HD, HTN, DM 2, CHF, COPD, morbid obesity, peripheral vascular disease admitted with SIRS and possible sepsis. #SIRS possible sepsis: present with leukocytosis and tachycardia, however no obvious infective source is present. #Leukocytosis: unclear etiology, no acute focal symptoms. Wounds look relatively good compared to previous, and no obvious purulence. Continue vanc and cefepime for now, if MRSA swab returns negative would stop vancomycin. #Chronic wounds of the feet - often colonized with GNR. Recommend culturing only if new symptoms, obvious new drainage, or worsening wounds. Continue wound care. #ESRD on HD: renally dose antibiotics. Line was dislodged, for replacement. #DM2: tight glycemic control Recommendations: - continue vancomycin with PK dosing, goal trough 10-20 - stop vancomycin if MRSA swab negative - continue cefepime for now. - follow up blood cultures - Need to discuss with mother if wounds are improved or looking worse as the patient is unsure and directed me to her mother, though she was not at bedside while I was there. Thank you for the consult, will continue to follow. Flakita Negrete MD [facility] M: [phone] O: [phone] F: [phone]
[2019-12-01] MEDS: EPOETIN ALFA 10,000 UNIT/1 ML INJ IV PRN (19:02)
[2019-12-01] MEDS ORDERED: VANCOMYCIN/NS 1 GM/250 ML 1 GM/250 ML BAG IV SCH (20:00)
[2019-12-02 04:34] LABS: Hematocrit 27.2 % (30.3-42.9); Hemoglobin 8.7 gm/dl (10.1-14.3); Mean Corpuscular HGB Conc 32 % (30-34); Mean Corpuscular Volume 85 fl (79-97); Platelet Count 261 K/mm3 (140-440); Red Blood Count 3.19 M/mm3 (3.65-5.03)
[2019-12-02 04:55] LABS: Calcium 8.8 mg/dL (8.4-10.2)
[2019-12-02] MEDS: GABAPENTIN 100 MG CAP PO SCH ×3 (05:08→23:16)
[2019-12-02 05:32] LABS: Anisocytosis 1+; Basophils % (Manual) 0 % (0.0-1.8); Monocytes % (Manual) 0 % (0.0-7.3); Total Cells Counted 100
[2019-12-02 05:33] LABS: Platelet Estimate Consistent w Auto; Target Cells 1+
[2019-12-02] MEDS: INSULIN LISPRO 100 UNIT/ML SUB-Q SCH ×3 (07:30→18:41)
[2019-12-02] MEDS: HEPARIN 5,000 UNIT/1 ML VIAL SUB-Q SCH ×2 (09:56→23:15)
--- NOTE | 2019-12-02 11:54 | Consultation ---
History of Present Illness - Reason for Consult Consult date: 12/02/19 - History of Present Illness HPI: 44-year-old female with end-stage renal disease on hemodialysis via left IJ PermCath who is currently hospitalized with fevers and hypotension. During patient's hospitalization is been noted that the patient's PermCath cuff was exposed. We have been consulted for PermCath exchange. Patient with no significant complaints at this time. ROS: As per HPI otherwise negative PE: No acute distress, alert and oriented x3 Regular rate and rhythm Non-labored respirations Left IJ PermCath intact with partial cuff exposed, no evidence of obvious infection no erythema or drainage from exit site Plan: We will plan for PermCath exchange today Patient consented and explained all the risk benefits and alternatives to the procedure and wishes to proceed Past History Past Medical History: diabetes, ESRD, hypertension, PVD, other (See HPI) Past Surgical History: Other (Permacath placement) Social history: single, lives with family, smoking. denies: alcohol abuse, prescription drug abuse Family history: diabetes, hypertension Medications and Allergies Allergies Allergy/AdvReac Type Severity Reaction Status Date / Time No Known Allergies Allergy Verified 03/12/19 12:23 Home Medications Medication Instructions Recorded Confirmed Last Taken Type ALBUTEROL NEB's [Proventil 0.083% 2.5 mg IH Q3HRT PRN #30 nebu 09/02/19 11/29/19 Unknown Rx NEBS] Acetaminophen [Acetaminophen TAB] 650 mg PO Q4H PRN tablet 09/13/19 11/29/19 10/26/19 Rx Gabapentin 100 mg PO Q8HR #90 capsule 09/27/19 11/29/19 Unknown Rx oxyCODONE /ACETAMINOPHEN [Percocet 1 tab PO Q6H PRN #14 tablet 09/27/19 10/26/19 11/29/19 08:00 Rx 5/325 mg] carvediloL [Coreg] 6.25 mg PO BID #60 tablet 10/28/19 11/29/19 Unknown Rx Active Meds: Active Medications Acetaminophen (Tylenol) 650 mg PO Q4H PRN PRN Reason: Pain MILD(1-3)/Fever >100.5/[place] Last Admin: 11/30/19 09:45 Dose: 650 mg Documented by: Albuterol (Proventil) 2.5 mg IH Q4HRT PRN PRN Reason: Shortness Of Breath Dextrose (D50w (25gm) Syringe) 0 ml IV Q30MIN PRN; Protocol PRN Reason: Hypoglycemia Epoetin Arias (Procrit) 10,000 unit IV AMBER PRN PRN Reason: hemodialysis Last Admin: 12/01/19 19:02 Dose: 10,000 unit Documented by: Gabapentin (Gabapentin) 100 mg PO Q8HR WALT Last Admin: 12/02/19 05:08 Dose: Not Given Documented by: Heparin Sodium (Porcine) (Heparin) 5,000 unit SUB-Q Q12HR WALT Last Admin: 12/02/19 09:56 Dose: 5,000 unit Documented by: Cefepime HCl (Cefepime/Ns 2 Gm/100 Ml) 2 gm in 100 mls @ 200 mls/hr IV Q24H [facility]; Protocol Last Admin: 12/01/19 17:00 Dose: Not Given Documented by: Sodium Chloride (Nacl 0.9%) 100 mls @ 999 mls/hr IV AMBER PRN PRN Reason: Hypotension Vancomycin HCl (Vancomycin/Ns 1 Gm/250 Ml) 1 gm in 250 mls @ 167.007 mls/hr IV MoWeFr [facility] Last Admin: 12/01/19 21:30 Dose: 167.007 mls/hr Documented by: Insulin Human Lispro (Humalog) 0 unit SUB-Q ACHS [facility]; Protocol Last Admin: 12/02/19 07:30 Dose: Not Given Documented by: Ondansetron HCl (Zofran) 4 mg IV Q8H PRN PRN Reason: Nausea And Vomiting Oxycodone/Acetaminophen (Percocet 5/325) 1 tab PO Q6H PRN PRN Reason: Pain, Moderate (4-6) Last Admin: 12/01/19 16:09 Dose: 1 tab Documented by: Sodium Chloride (Sodium Chloride Flush Syringe 10 Ml) 10 ml IV BID [facility] Last Admin: 12/02/19 09:56 Dose: 10 ml Documented by: Sodium Chloride (Sodium Chloride Flush Syringe 10 Ml) 10 ml IV PRN PRN PRN Reason: LINE FLUSH Exam - Constitutional Vitals: Temp Pulse Resp BP Pulse Ox 98.7 F 114 H 15 101/61 96 12/02/19 00:00 12/02/19 08:00 12/02/19 08:00 12/02/19 08:00 12/02/19 08:00 Results - Labs CBC & Chem 7: 12/02/19 03:50 12/02/19 03:50 Labs: Abnormal lab results 12/01/19 12/02/19 12/02/19 Range/Units 21:27 03:50 03:50 WBC 22.4 H (4.5-11.0) K/mm3 RBC 3.19 L (3.65-5.03) M/mm3 Hgb 8.7 L (10.1-14.3) gm/dl Hct 27.2 L (30.3-42.9) % MCH 27 L (28-32) pg RDW 19.0 H (13.2-15.2) % Seg Neuts % (Manual) 93.0 H (40.0-70.0) % Lymphocytes % (Manual) 5.0 L (13.4-35.0) % Seg Neutrophils # Man 20.8 H (1.8-7.7) K/mm3 Lymphocytes # (Manual) 1.1 L (1.2-5.4) K/mm3 BUN 44 H (7-17) mg/dL Creatinine 4.8 H (0.7-1.2) mg/dL Glucose 141 H (65-100) mg/dL POC Glucose 108 H (70-105) 12/02/19 Range/Units 09:21 WBC (4.5-11.0) K/mm3 RBC (3.65-5.03) M/mm3 Hgb (10.1-14.3) gm/dl Hct (30.3-42.9) % MCH (28-32) pg RDW (13.2-15.2) % Seg Neuts % (Manual) (40.0-70.0) % Lymphocytes % (Manual) (13.4-35.0) % Seg Neutrophils # Man (1.8-7.7) K/mm3 Lymphocytes # (Manual) (1.2-5.4) K/mm3 BUN (7-17) mg/dL Creatinine (0.7-1.2) mg/dL Glucose (65-100) mg/dL POC Glucose 124 H (70-105)
[2019-12-02] MEDS ORDERED: HEPARIN/NS 5000 UNIT/500ML 500 ML IR ONE (12:59)
[2019-12-02] MEDS ORDERED: LIDOCAINE (2%) 20 MG/1 ML VIAL 20 ML MDV INFILTRATI ONE (12:59)
[2019-12-02] MEDS ORDERED: HEPARIN 10,000 UNITS/10 ML VIAL ONE (12:59)
[2019-12-02] MEDS ORDERED: SODIUM CHLORIDE 0.9% 500 ML 500 ML IV SCH (13:00)
--- NOTE | 2019-12-02 13:06 | Progress Note ---
Assessment and Plan / Sepsis from infected chronic wound Presented with fever, elevated white count, hypotension and tachycardia Sepsis protocol: IV antibiotic therapy, IV fluid resuscitation therapy, ordered blood cx Cont empiric abx for now, negative blood cx consulted ID - follow recommendation / End stage renal disease Nephrology consulted in ED, dialysis as per renal team, strict I/O's/daily weight, monitor urine output every shift, avoid nephrotoxic agents. /Dislodged HD catheter, IR consulted for perm cath placement today /B/l chronic non healing wound - wound care consulted, ? infected cont abx / Symptomatic anemia PRBC 6.5 on admission s/p one unit Packed red blood cell transfusion, monitor CBC, /hypotension, likely from anemia and underlying sepsis ? cont to monitor / Morbid Obesity dietary consulted / Hypertension Monitor blood pressure every shift, hold antihypertensive medication for now as patient currently hypotensive. / Diabetes type 2 Consistent carbohydrate diet, sliding scale insulin therapy, Accu-Cheks, hypoglycemia protocol. /Nicotine dependence with withdrawal Smoking cessation counseling, supportive care, +15 minutes. / Advance care planning Patient is a full code, disease education conducted at bedside, patient's mother acknowledges understanding and agreement with care plan. / DVT prophylaxis SCD to bilateral lower extremities while in bed Disposition: d/c when clinically improves and clears by ID Brief History: This is a 44 year-old woman with ESRD on HD MWF and multiple other co- morbidities who presents for concerns of hypotension and fevers. Last HD attempted on 11/29/2019; did not complete treatment due to fevers and hypotension while on machine. She c/o pain of her lower extremity wounds. On admission she also had Hb of 6.5 Subjective Date of service: 12/02/19 Interval history: Patient seen and examined Denies any chest pain or SOB planned for permcath placement by IR BP stable Objective - Exam Narrative Exam: General appearance: Present: mild distress, obese - EENT Eyes: Present: PERRL ENT: hearing intact, clear oral mucosa - Neck Neck: Present: supple, normal ROM - Respiratory Respiratory effort: labored, accessory muscle use Respiratory: bilateral: diminished, rhonchi - Cardiovascular Heart Sounds: Present: S1 & S2. Absent: rub, click - Extremities Extremities: pulses symmetrical Extremity abnormal: edema, b/l LE multiple ulcers stage 1-3 Peripheral Pulses: abnormal (Capillary refill greater than 3.5 seconds) - Abdominal General gastrointestinal: Present: soft, non-tender, non-distended, normal bowel sounds Female genitourinary: Present: normal - Integumentary Integumentary: Present: clear, dry, clammy, decreased turgor - Musculoskeletal Musculoskeletal: generalized weakness - Psychiatric Psychiatric: no appropriate mood/affect, no intact judgment & insight, no memory intact - Neurologic Neurologic: CNII-XII intact, no focal deficits, moves all extremities, bedbound - Constitutional Vitals: Vital Signs - 12hr 12/02/19 12/02/19 12/02/19 02:01 03:01 03:54 Temperature Pulse Rate 123 H 126 H Pulse Rate [ 123 H From Monitor] Respiratory 12 22 15 Rate Blood Pressure 131/91 131/91 O2 Sat by Pulse 96 95 98 Oximetry 12/02/19 12/02/19 12/02/19 04:00 04:01 05:01 Temperature Pulse Rate 123 H 123 H 120 H Pulse Rate [ From Monitor] Respiratory 31 H 10 L Rate Blood Pressure 131/91 109/76 O2 Sat by Pulse 97 93 Oximetry 12/02/19 12/02/19 12/02/19 06:01 07:01 08:00 Temperature 99.2 F Pulse Rate 117 H 114 H 114 H Pulse Rate [ 114 H From Monitor] Respiratory 7 L 7 L 15 Rate Blood Pressure 109/76 109/76 101/61 O2 Sat by Pulse 95 96 96 Oximetry - Labs CBC & Chem 7: 12/02/19 03:50 12/02/19 03:50 Labs: Abnormal lab results 12/01/19 12/02/19 12/02/19 Range/Units 21:27 03:50 03:50 WBC 22.4 H (4.5-11.0) K/mm3 RBC 3.19 L (3.65-5.03) M/mm3 Hgb 8.7 L (10.1-14.3) gm/dl Hct 27.2 L (30.3-42.9) % MCH 27 L (28-32) pg RDW 19.0 H (13.2-15.2) % Seg Neuts % (Manual) 93.0 H (40.0-70.0) % Lymphocytes % (Manual) 5.0 L (13.4-35.0) % Seg Neutrophils # Man 20.8 H (1.8-7.7) K/mm3 Lymphocytes # (Manual) 1.1 L (1.2-5.4) K/mm3 BUN 44 H (7-17) mg/dL Creatinine 4.8 H (0.7-1.2) mg/dL Glucose 141 H (65-100) mg/dL POC Glucose 108 H (70-105) 12/02/19 Range/Units 09:21 WBC (4.5-11.0) K/mm3 RBC (3.65-5.03) M/mm3 Hgb (10.1-14.3) gm/dl Hct (30.3-42.9) % MCH (28-32) pg RDW (13.2-15.2) % Seg Neuts % (Manual) (40.0-70.0) % Lymphocytes % (Manual) (13.4-35.0) % Seg Neutrophils # Man (1.8-7.7) K/mm3 Lymphocytes # (Manual) (1.2-5.4) K/mm3 BUN (7-17) mg/dL Creatinine (0.7-1.2) mg/dL Glucose (65-100) mg/dL POC Glucose 124 H (70-105)
[2019-12-02] MEDS ORDERED: MIDAZOLAM 2 MG/2 ML INJ ONE (13:22)
[2019-12-02] MEDS ORDERED: fentaNYL 100 MCG/2 ML INJ ONE (13:22)
--- NOTE | 2019-12-02 13:44 | Post Operative Note ---
Pre-op diagnosis: ESRD Post-op diagnosis: same Procedure: Left IJ Permcath Exchange Monitored Conscious Sedation for 15 minutes Anesthesia: MAC, local Surgeon: ANTONIO OCHOA Estimated blood loss: minimal Pathology: none Specimen disposition: to lab Condition: stable Disposition: floor
--- NOTE | 2019-12-02 14:24 | Progress Note ---
Assessment and Plan This is a 44 year old woman who presents with hypotension, fevers. # ESRD: - continue HD MWF, plan for HD tomorrow - CVC is dislodged; have placed consult for IR (Dr. Brink), assistance is appreciated, having it replaced today - daily labs - renally dose meds - avoid nephrotoxins - renal diet # Anemia: last hemoglobin 8.7. Continue ESAs with HD # HTN: UF as tolerated with HD. BP remains soft. Sepsis/hypotension workup per primary # Secondary Hyperparathyroidism: continue home binders as needed Subjective Date of service: 12/02/19 Interval history: No acute issues noted. Patient alert but sleeping this AM. Continues to have pain in lower extremities. Objective - Exam Narrative Exam: Constitutional: no acute distress Head: NC/AT Neck: supple Lungs: clear to auscultation CV: RRR, no M/R/G Abdomen: soft, non-tender, bowel sounds present Back: nontender Extremities: no edema, pulses WNL Skin: bilateral lower extremity wounds noted Neuro: no focal deficits, alert and oriented x4 - Vital Signs Vital signs: Vital Signs - 12hr 12/02/19 12/02/19 12/02/19 03:01 03:54 04:00 Temperature Pulse Rate 126 H 123 H Pulse Rate [ 123 H From Monitor] Respiratory 22 15 Rate Blood Pressure 131/91 O2 Sat by Pulse 95 98 Oximetry 12/02/19 12/02/19 12/02/19 04:01 05:01 06:01 Temperature Pulse Rate 123 H 120 H 117 H Pulse Rate [ From Monitor] Respiratory 31 H 10 L 7 L Rate Blood Pressure 131/91 109/76 109/76 O2 Sat by Pulse 97 93 95 Oximetry 12/02/19 12/02/19 12/02/19 07:01 08:00 09:01 Temperature 99.2 F Pulse Rate 114 H 114 H 115 H Pulse Rate [ 114 H From Monitor] Respiratory 7 L 15 21 Rate Blood Pressure 109/76 101/61 102/58 O2 Sat by Pulse 96 96 98 Oximetry 12/02/19 12/02/19 12/02/19 10:01 11:01 12:00 Temperature Pulse Rate 115 H 117 H 120 H Pulse Rate [ 120 H From Monitor] Respiratory 19 16 15 Rate Blood Pressure 102/58 102/58 O2 Sat by Pulse 99 98 96 Oximetry - Lab 12/02/19 03:50 12/02/19 03:50 Most recent lab results Calcium 8.8 mg/dL (8.4-10.2) 12/02/19 03:50 Medications & Allergies - Medications Allergies/Adverse Reactions: Allergies No Known Allergies Allergy (Verified 03/12/19 12:23) Home Medications: Home Medications Medication Instructions Recorded Confirmed Last Taken Type ALBUTEROL NEB's [Proventil 0.083% 2.5 mg IH Q3HRT PRN #30 nebu 09/02/19 11/29/19 Unknown Rx NEBS] Acetaminophen [Acetaminophen TAB] 650 mg PO Q4H PRN tablet 09/13/19 11/29/19 10/26/19 Rx Gabapentin 100 mg PO Q8HR #90 capsule 09/27/19 11/29/19 Unknown Rx oxyCODONE /ACETAMINOPHEN [Percocet 1 tab PO Q6H PRN #14 tablet 09/27/19 10/26/19 11/29/19 08:00 Rx 5/325 mg] carvediloL [Coreg] 6.25 mg PO BID #60 tablet 10/28/19 11/29/19 Unknown Rx Active Medications: Generic Name Dose Route Start Last Admin Trade Name Freq PRN Reason Stop Dose Admin Acetaminophen 650 mg 11/29/19 16:28 11/30/19 09:45 Tylenol PO 650 mg Q4H PRN Administration Pain MILD(1-3)/Fever >100.5/[place] Albuterol 2.5 mg 11/29/19 16:28 Proventil IH Q4HRT PRN Shortness Of Breath Dextrose 0 ml 11/29/19 22:09 D50w (25gm) Syringe IV Q30MIN PRN Hypoglycemia Protocol Epoetin Arias 10,000 unit 11/30/19 16:27 12/01/19 19:02 Procrit IV 10,000 unit AMBER PRN Administration hemodialysis Gabapentin 100 mg 11/29/19 22:00 12/02/19 14:01 Gabapentin PO Not Given Q8HR WALT Heparin Sodium (Porcine) 5,000 unit 11/29/19 22:00 12/02/19 09:56 Heparin SUB-Q 5,000 unit Q12HR [facility] Administration Cefepime HCl 2 gm in 100 mls @ 200 mls/hr 11/29/19 17:00 12/01/19 17:00 Cefepime/Ns 2 Gm/100 Ml IV Not Given Q24H [facility] Protocol Sodium Chloride 100 mls @ 999 mls/hr 11/30/19 16:27 Nacl 0.9% IV AMBER PRN Hypotension Vancomycin HCl 1 gm in 250 mls @ 167.007 mls/hr 12/01/19 20:00 12/01/19 21:30 Vancomycin/Ns 1 Gm/250 Ml IV 167.007 mls/hr MoWeFr [facility] Administration Sodium Chloride 500 mls @ 50 mls/hr 12/02/19 13:00 Nacl 0.9% 500 Ml IV DIRECT [facility] Insulin Human Lispro 0 unit 11/30/19 07:30 12/02/19 11:30 Humalog SUB-Q Not Given ACHS [facility] Protocol Ondansetron HCl 4 mg 11/29/19 16:28 Zofran IV Q8H PRN Nausea And Vomiting Oxycodone/Acetaminophen 1 tab 11/30/19 09:59 12/01/19 16:09 Percocet 5/325 PO 1 tab Q6H PRN Administration Pain, Moderate (4-6) Sodium Chloride 10 ml 11/29/19 22:00 12/02/19 09:56 Sodium Chloride Flush Syringe 10 Ml IV 10 ml BID [facility]ALT Administration Sodium Chloride 10 ml 11/29/19 16:28 Sodium Chloride Flush Syringe 10 Ml IV PRN PRN LINE FLUSH
--- NOTE | 2019-12-02 15:43 | Progress Note ---
Assessment and Plan Cultures: 11/29/2019 blood cultures: NGTD MRSA negative A&P: 44-year-old female with past medical history of ESRD on HD, HTN, DM 2, CHF, COPD, morbid obesity, peripheral vascular disease admitted with SIRS and possible sepsis. #SIRS possible sepsis: present with leukocytosis and tachycardia, however no obvious infective source is present. #Leukocytosis: unclear etiology, no acute focal symptoms. Wounds look relatively good compared to previous, and no obvious purulence. Continue vanc and cefepime for now, if MRSA swab returns negative would stop vancomycin. #Chronic wounds of the feet - often colonized with GNR. Recommend culturing only if new symptoms, obvious new drainage, or worsening wounds. Continue wound care. #ESRD on HD: renally dose antibiotics. Line was dislodged, for replacement. #DM2: tight glycemic control Recommendations: - stopped vancomycin as MRSA nares swabs are negative. - continue cefepime for now. - started metronidazole - follow up blood cultures - unclear if wounds better or worse, mother takes care of her wounds and patient doesn't know. - continue wound care. Thank you for the consult, will continue to follow. Flakita Negrete MD [facility] M: [phone] O: [phone] F: [phone] Subjective Date of service: 12/02/19 Interval history: Remains drowsy today. Afebrile, elevated white count to 22 Objective - Exam Narrative Exam: Physical Exam: Constitutional: Drowsy, cooperative. No acute distress Head, Ears, Nose: Normocephalic, atraumatic. External ears, nose normal Eyes: Conjunctivae/corneas clear. No icterus. No ptosis. Cardiovascular: S1, S2 normal. L chest CVC Respiratory: Good air entry, clear to auscultation bilaterally GI: Soft, non-tender; bowel sounds normal. No peritoneal signs. Musculoskeletal: No pedal edema, no cyanosis. Skin: Bilateral chronic leg wounds with L foot Psych: Mood ok. Affect normal Neurological: Awake, alert, oriented. No gross abnormality - Constitutional Vitals: Vital Signs Temp Pulse Resp BP Pulse Ox 99.2 F 120 H 15 102/58 96 12/02/19 08:00 12/02/19 12:00 12/02/19 12:00 12/02/19 11:01 12/02/19 12:00 Temperature -Last 24 Hours Temperature 99.2 F Temperature 98.7 F Temperature 99.1 F Temperature 98.0 F - Labs CBC & Chem 7: 12/02/19 03:50 12/02/19 03:50 Labs: Abnormal lab results 12/01/19 12/02/19 12/02/19 Range/Units 21:27 03:50 03:50 WBC 22.4 H (4.5-11.0) K/mm3 RBC 3.19 L (3.65-5.03) M/mm3 Hgb 8.7 L (10.1-14.3) gm/dl Hct 27.2 L (30.3-42.9) % MCH 27 L (28-32) pg RDW 19.0 H (13.2-15.2) % Seg Neuts % (Manual) 93.0 H (40.0-70.0) % Lymphocytes % (Manual) 5.0 L (13.4-35.0) % Seg Neutrophils # Man 20.8 H (1.8-7.7) K/mm3 Lymphocytes # (Manual) 1.1 L (1.2-5.4) K/mm3 BUN 44 H (7-17) mg/dL Creatinine 4.8 H (0.7-1.2) mg/dL Glucose 141 H (65-100) mg/dL POC Glucose 108 H (70-105) 12/02/19 12/02/19 Range/Units 09:21 12:20 WBC (4.5-11.0) K/mm3 RBC (3.65-5.03) M/mm3 Hgb (10.1-14.3) gm/dl Hct (30.3-42.9) % MCH (28-32) pg RDW (13.2-15.2) % Seg Neuts % (Manual) (40.0-70.0) % Lymphocytes % (Manual) (13.4-35.0) % Seg Neutrophils # Man (1.8-7.7) K/mm3 Lymphocytes # (Manual) (1.2-5.4) K/mm3 BUN (7-17) mg/dL Creatinine (0.7-1.2) mg/dL Glucose (65-100) mg/dL POC Glucose 124 H 131 H (70-105)
[2019-12-02] MEDS: CEFEPIME/NS 2 GM/100 ML 2 GM/100 ML BAG IV SCH (16:26)
[2019-12-02] MEDS: metroNIDAZOLE/NS 500 MG/100 ML 500 MG/100 ML BAG IV SCH ×2 (16:28→23:16)
--- NOTE | 2019-12-02 17:05 | Operative Report ---
STAFF SURGEON: Dr. Chris Chen. PREOPERATIVE DIAGNOSIS: End-stage renal disease. POSTOPERATIVE DIAGNOSIS: End-stage renal disease. PROCEDURE PERFORMED: 1. Left IJ PermCath exchange. 2. Monitored conscious sedation for 15 minutes. COMPLICATIONS: None. ESTIMATED BLOOD LOSS: Less than 10 mL. ANESTHESIA: Local MAC. INDICATIONS FOR PROCEDURE: This is a 44-year-old female hospitalized with fevers and hypotension who was noticed on dialysis to have an exposed cough; therefore, Vascular consultation was obtained for a PermCath exchange. The patient was explained the risks, benefits, alternatives of the procedure, expressed understanding and wished to proceed. DESCRIPTION OF PROCEDURE: After appropriate consent was obtained, the patient was brought back to the microbiology lab technician, placed on table in supine position. The left neck and chest were prepped and draped in the usual sterile fashion. Appropriate time-out performed indicating correct patient, procedure and site of the procedure. We then began the intervention by freeing up the rest of the cuff of the existing Perm-A-Cath using blunt dissection. Then, a appCREAR wire was placed through the catheter into the IVC. Catheter was removed. The tip of the catheter was sent for culture. The wire was then wiped down with three slice of Betadine-soaked gauze and then three slice of saline soaked gauze. I then proceeded to bring a 23 cm straight PermCath placed over the wire into the tip of the catheter at the SVC. Wire was removed. Both lumens ekta blood appropriately, were flushed with heparinized saline. Appropriate amount of heparin was placed in each port. The catheter was then sutured in place with 3-0 nylon. Appropriate dressing was placed. The patient tolerated the procedure well, emerged from the conscious sedation and was sent to recovery in stable condition. JOB# [id number] ALENA/NEELA
[2019-12-02] MEDS: oxyCODONE /ACETAMINOPHEN 5-325MG TAB PO PRN (23:23)
[2019-12-03 05:37] LABS: Basophils # (Auto) 0.1 K/mm3 (0.0-0.1); Basophils % (Auto) 0.7 % (0.0-1.8); Eosinophils # (Auto) 1.2 K/mm3 (0.0-0.4); Eosinophils % (Auto) 6.3 % (0.0-4.3); Hematocrit 27.1 % (30.3-42.9); Hemoglobin 8.6 gm/dl (10.1-14.3); Lymphocytes # (Auto) 1.3 K/mm3 (1.2-5.4); Lymphocytes % (Auto) 6.5 % (13.4-35.0); Mean Corpuscular HGB Conc 32 % (30-34); Mean Corpuscular Volume 85 fl (79-97); Monocytes # (Auto) 1.3 K/mm3 (0.0-0.8); Monocytes % (Auto) 6.4 % (0.0-7.3); Platelet Count 285 K/mm3 (140-440); Red Blood Count 3.18 M/mm3 (3.65-5.03); Red Cell Distribution Width 19.2 % (13.2-15.2)
[2019-12-03 06:01] LABS: Calcium 8.7 mg/dL (8.4-10.2)
[2019-12-03] MEDS: GABAPENTIN 100 MG CAP PO SCH ×3 (06:11→21:16)
[2019-12-03] MEDS: metroNIDAZOLE/NS 500 MG/100 ML 500 MG/100 ML BAG IV SCH ×2 (06:11→13:18)
[2019-12-03] MEDS: INSULIN LISPRO 100 UNIT/ML SUB-Q SCH ×3 (08:09→16:42)
--- NOTE | 2019-12-03 09:12 | Progress Note ---
Assessment and Plan Assessment and plan: --Sepsis from infected chronic wound Presented with fever, elevated white count, hypotension and tachycardia Sepsis protocol: IV antibiotic therapy, IV fluid resuscitation therapy, ordered blood cx Cont empiric abx for now, negative blood cx consulted ID - follow recommendation --End stage renal disease Nephrology consulted in ED, dialysis as per renal team, strict I/O's/daily weight, monitor urine output every shift, avoid nephrotoxic agents. --Dislodged HD catheter, IR consulted for perm cath replaced --B/l chronic non healing wound wound care consulted, ? infected cont abx --Symptomatic anemia PRBC 6.5 on admission s/p one unit Packed red blood cell transfusion, monitor CBC, /hypotension, likely from anemia and underlying sepsis ? cont to monitor / Morbid Obesity dietary consulted / Hypertension Monitor blood pressure every shift, hold antihypertensive medication for now as patient currently hypotensive. / Diabetes type 2 Consistent carbohydrate diet, sliding scale insulin therapy, Accu-Cheks, hypoglycemia protocol. /Nicotine dependence with withdrawal Smoking cessation counseling, supportive care, +15 minutes. / Advance care planning Patient is a full code, disease education conducted at bedside, patient's mother acknowledges understanding and agreement with care plan. / DVT prophylaxis SCD to bilateral lower extremities while in bed Disposition: d/c when clinically improves and clears by ID Brief History: This is a 44 year-old woman with ESRD on HD MWF and multiple other co- morbidities who presents for concerns of hypotension and fevers. Last HD attempted on 11/29/2019; did not complete treatment due to fevers and hypotension while on machine. She c/o pain of her lower extremity wounds. On admission she also had Hb of 6.5 Hospitalist Physical - Constitutional Vitals: Temp Pulse Resp BP Pulse Ox 98.1 F 113 H 24 99/60 98 12/03/19 08:00 12/03/19 06:01 12/03/19 06:01 12/03/19 06:01 12/03/19 06:01 General appearance: Present: mild distress, obese Results - Labs CBC & Chem 7: 12/03/19 05:07 12/03/19 05:07 Labs: Laboratory Last Values WBC 19.7 K/mm3 (4.5-11.0) H 12/03/19 05:07 RBC 3.18 M/mm3 (3.65-5.03) L 12/03/19 05:07 Hgb 8.6 gm/dl (10.1-14.3) L 12/03/19 05:07 Hct 27.1 % (30.3-42.9) L 12/03/19 05:07 MCV 85 fl (79-97) 12/03/19 05:07 MCH 27 pg (28-32) L 12/03/19 05:07 MCHC 32 % (30-34) 12/03/19 05:07 RDW 19.2 % (13.2-15.2) H 12/03/19 05:07 Plt Count 285 K/mm3 (140-440) 12/03/19 05:07 Lymph % (Auto) 6.5 % (13.4-35.0) L 12/03/19 05:07 [place] % (Auto) 6.4 % (0.0-7.3) 12/03/19 05:07 Eos % (Auto) 6.3 % (0.0-4.3) H 12/03/19 05:07 Baso % (Auto) 0.7 % (0.0-1.8) 12/03/19 05:07 Lymph # 1.3 K/mm3 (1.2-5.4) 12/03/19 05:07 [place] # 1.3 K/mm3 (0.0-0.8) H 12/03/19 05:07 Eos # 1.2 K/mm3 (0.0-0.4) H 12/03/19 05:07 Baso # 0.1 K/mm3 (0.0-0.1) 12/03/19 05:07 Add Manual Diff Complete 12/02/19 03:50 Total Counted 100 12/02/19 03:50 Seg Neutrophils % 80.1 % (40.0-70.0) H 12/03/19 05:07 Seg Neuts % (Manual) 93.0 % (40.0-70.0) H 12/02/19 03:50 Band Neutrophils % 0 % 12/02/19 03:50 Lymphocytes % (Manual) 5.0 % (13.4-35.0) L 12/02/19 03:50 Reactive Lymphs % (Man) 0 % 12/02/19 03:50 Monocytes % (Manual) 0 % (0.0-7.3) 12/02/19 03:50 Eosinophils % (Manual) 2.0 % (0.0-4.3) 12/02/19 03:50 Basophils % (Manual) 0 % (0.0-1.8) 12/02/19 03:50 Metamyelocytes % 0 % 12/02/19 03:50 Myelocytes % 0 % 12/02/19 03:50 Promyelocytes % 0 % 12/02/19 03:50 Blast Cells % 0 % 12/02/19 03:50 Nucleated RBC % Not Reportable 12/02/19 03:50 Seg Neutrophils # 15.8 K/mm3 (1.8-7.7) H 12/03/19 05:07 Seg Neutrophils # Man 20.8 K/mm3 (1.8-7.7) H 12/02/19 03:50 Band Neutrophils # 0.0 K/mm3 12/02/19 03:50 Lymphocytes # (Manual) 1.1 K/mm3 (1.2-5.4) L 12/02/19 03:50 Abs React Lymphs (Man) 0.0 K/mm3 12/02/19 03:50 Monocytes # (Manual) 0.0 K/mm3 (0.0-0.8) 12/02/19 03:50 Eosinophils # (Manual) 0.4 K/mm3 (0.0-0.4) 12/02/19 03:50 Basophils # (Manual) 0.0 K/mm3 (0.0-0.1) 12/02/19 03:50 Metamyelocytes # 0.0 K/mm3 12/02/19 03:50 Myelocytes # 0.0 K/mm3 12/02/19 03:50 Promyelocytes # 0.0 K/mm3 12/02/19 03:50 Blast Cells # 0.0 K/mm3 12/02/19 03:50 WBC Morphology Not Reportable 12/02/19 03:50 Hypersegmented Neuts Not Reportable 12/02/19 03:50 Hyposegmented Neuts Not Reportable 12/02/19 03:50 Hypogranular Neuts Not Reportable 12/02/19 03:50 Smudge Cells Not Reportable 12/02/19 03:50 Toxic Granulation Not Reportable 12/02/19 03:50 Toxic Vacuolation Not Reportable 12/02/19 03:50 Dohle Bodies Not Reportable 12/02/19 03:50 Pelger-Huet Anomaly Not Reportable 12/02/19 03:50 Sara Rods Not Reportable 12/02/19 03:50 Platelet Estimate Consistent w auto 12/02/19 03:50 Clumped Platelets Not Reportable 12/02/19 03:50 Plt Clumps, EDTA Not Reportable 12/02/19 03:50 Large Platelets Not Reportable 12/02/19 03:50 Giant Platelets Not Reportable 12/02/19 03:50 Platelet Satelliting Not Reportable 12/02/19 03:50 Plt Morphology Comment Not Reportable 12/02/19 03:50 RBC Morphology Not Reportable 12/02/19 03:50 Dimorphic RBCs Not Reportable 12/02/19 03:50 Polychromasia Not Reportable 12/02/19 03:50 Hypochromasia Not Reportable 12/02/19 03:50 Poikilocytosis Not Reportable 12/02/19 03:50 Anisocytosis 1+ 12/02/19 03:50 Microcytosis Not Reportable 12/02/19 03:50 Macrocytosis Not Reportable 12/02/19 03:50 Spherocytes Not Reportable 12/02/19 03:50 Pappenheimer Bodies Not Reportable 12/02/19 03:50 Sickle Cells Not Reportable 12/02/19 03:50 Target Cells 1+ 12/02/19 03:50 Tear Drop Cells Not Reportable 12/02/19 03:50 Ovalocytes Not Reportable 12/02/19 03:50 Helmet Cells Not Reportable 12/02/19 03:50 [place] Bodies Not Reportable 12/02/19 03:50 [place] Rings Not Reportable 12/02/19 03:50 Raciel Cells Not Reportable 12/02/19 03:50 Bite Cells Not Reportable 12/02/19 03:50 Crenated Cell Not Reportable 12/02/19 03:50 Elliptocytes Not Reportable 12/02/19 03:50 Acanthocytes (Spur) Not Reportable 12/02/19 03:50 Rouleaux Not Reportable 12/02/19 03:50 Hemoglobin C Crystals Not Reportable 12/02/19 03:50 Schistocytes Not Reportable 12/02/19 03:50 Malaria parasites Not Reportable 12/02/19 03:50 Adarsh Bodies Not Reportable 12/02/19 03:50 Hem Pathologist Commnt No 12/02/19 03:50 Sodium 141 mmol/L (137-145) 12/03/19 05:07 Potassium 4.4 mmol/L (3.6-5.0) 12/03/19 05:07 Chloride 103.5 mmol/L (98-107) 12/03/19 05:07 Carbon Dioxide 21 mmol/L (22-30) L 12/03/19 05:07 Anion Gap 21 mmol/L 12/03/19 05:07 BUN 50 mg/dL (7-17) H 12/03/19 05:07 Creatinine 5.1 mg/dL (0.7-1.2) H 12/03/19 05:07 Estimated GFR 11 ml/min 12/03/19 05:07 BUN/Creatinine Ratio 10 % 12/03/19 05:07 Glucose 99 mg/dL (65-100) 12/03/19 05:07 POC Glucose 100 (70-105) 12/03/19 08:18 Lactic Acid 1.70 mmol/L (0.7-2.0) 11/30/19 09:55 Calcium 8.7 mg/dL (8.4-10.2) 12/03/19 05:07 Total Bilirubin 0.70 mg/dL (0.1-1.2) 11/29/19 13:05 AST 14 units/L (5-40) 11/29/19 13:05 ALT 5 units/L (7-56) L 11/29/19 13:05 Alkaline Phosphatase 172 units/L (35-129) H 11/29/19 13:05 Troponin T 0.272 ng/mL (0.00-0.029) H* 11/29/19 13:05 Total Protein 6.4 g/dL (6.3-8.2) 11/29/19 13:05 Albumin 1.6 g/dL (3.9-5) L 11/29/19 13:05 Albumin/Globulin Ratio 0.3 % 11/29/19 13:05 Triglycerides 65 mg/dL (2-149) 11/29/19 13:05 Cholesterol 62 mg/dL (50-199) 11/29/19 13:05 LDL Cholesterol Direct 21 mg/dL (50-130) L 11/29/19 13:05 HDL Cholesterol 31 mg/dL (40-59) L 11/29/19 13:05 Cholesterol/HDL Ratio 2.00 % 11/29/19 13:05 Random Vancomycin 11.9 ug/mL (0-40.0) 11/30/19 09:55 Hepatitis A IgM Ab Non-reactive (NonReactive) 11/30/19 09:55 Hep Bs Antigen Non-reactive (Negative) 11/30/19 09:55 Hep B Core IgM Ab Non-reactive (NonReactive) 11/30/19 09:55 Hepatitis C Antibody Non-reactive (NonReactive) 11/30/19 09:55 Blood Type A POSITIVE 11/29/19 16:55 Antibody Screen Negative 11/29/19 16: Crossmatch See Detail 11/29/19 16:55 Active Medications - Current Medications Current Medications: Generic Name Dose Route Start Last Admin Trade Name Freq PRN Reason Stop Dose Admin Acetaminophen 650 mg 11/29/19 16:28 11/30/19 09:45 Tylenol PO 650 mg Q4H PRN Administration Pain MILD(1-3)/Fever >100.5/[place] Albuterol 2.5 mg 11/29/19 16:28 Proventil IH Q4HRT PRN Shortness Of Breath Dextrose 0 ml 11/29/19 22:09 D50w (25gm) Syringe IV Q30MIN PRN Hypoglycemia Protocol Epoetin Arias 10,000 unit 11/30/19 16:27 12/01/19 19:02 Procrit IV 10,000 unit AMBER PRN Administration hemodialysis Gabapentin 100 mg 11/29/19 22:00 12/03/19 06:11 Gabapentin PO 100 mg Q8HR WALT Administration Heparin Sodium (Porcine) 5,000 unit 11/29/19 22:00 12/02/19 23:15 Heparin SUB-Q 5,000 unit Q12HR WALT Administration Cefepime HCl 2 gm in 100 mls @ 200 mls/hr 11/29/19 17:00 12/02/19 16:26 Cefepime/Ns 2 Gm/100 Ml IV 200 mls/hr Q24H WALT Administration Protocol Sodium Chloride 100 mls @ 999 mls/hr 11/30/19 16:27 Nacl 0.9% IV AMBER PRN Hypotension Sodium Chloride 500 mls @ 50 mls/hr 12/02/19 13:00 Nacl 0.9% 500 Ml IV DIRECT WALT Metronidazole 500 mg in 100 mls @ 100 mls/hr 12/02/19 16:00 12/03/19 06:11 Flagyl 500 Mg/100 Ml IV 100 mls/hr Q8HR WALT Administration Protocol Insulin Human Lispro 0 unit 11/30/19 07:30 12/03/19 08:09 Humalog SUB-Q Not Given ACHS WALT Protocol Ondansetron HCl 4 mg 11/29/19 16:28 Zofran IV Q8H PRN Nausea And Vomiting Oxycodone/Acetaminophen 1 tab 11/30/19 09:59 12/02/19 23:23 Percocet 5/325 PO 1 tab Q6H PRN Administration Pain, Moderate (4-6) Sodium Chloride 10 ml 11/29/19 22:00 12/02/19 09:56 Sodium Chloride Flush Syringe 10 Ml IV 10 ml BID WALT Administration Sodium Chloride 10 ml 11/29/19 16:28 Sodium Chloride Flush Syringe 10 Ml IV PRN PRN LINE FLUSH Nutrition/Malnutrition Assess - Dietary Evaluation Nutrition/Malnutrition Findings: Nutrition Notes Start: 11/30/19 11:31 Freq: Status: Active Protocol: Document 12/02/19 09:51 CT (Rec: 12/02/19 09:59 CT [id number]) Co-Sign 12/02/19 09:51 LP Nutrition Notes Initial or Follow up Reassessment Current Diagnosis CKD (stage V CKD),COPD, Diabetes,Sepsis,Hypertension, Heart Failure Other Pertinent Diagnosis on HD, nicotene depedence, PVD , calciphylaxis, wounds, edema , Current Diet Renal with consistent CHO Labs/Tests BUN 44 Cr 4.8 Glu 141 Pertinent Medications Humalog Vancomycin Height 5 ft 2 in Weight 133.5 kg [place] Body Weight (kg) 50.00 BMI 53.8 Weight Status Morbidly Obese Subjective/Other Information Follow up for PO/ONS intakes. Pt consumed 0% of breakfast this am. Per RN pt did not eat anything, but drank Nepro yesterday. Pt has been drinking all Nepro delivered. Increased to BID, since pt is not eating any food. Pt was disorientated at time of visit and pt mother was not in room . Percent of energy/protein needs met: 53% energy / 35% protein (two Nepro shakes) Burn Absent Trauma Absent Current % PO Poor (25-49%) Minimum of two criteria No Fluid Accumulation Moderate to Severe (severe) #2 Nutrition Diagnosis Inadequate oral intake Etiology chronic illness As Evidenced by Signs and Symptoms pt not eating meals #1 Nutrition Diagnosis Increased nutrient needs ( specify in comment below) Diagnosis Progress(for reassessment Continues documentation) Is patient on ventilator? No Is Patient Ambulatory and/or Out of Bed No REE-([place]-St. Jeor-confined to bed) 2340.336 Kcal/Kg value to use for calculation 12 Approximate Energy Requirements Using 1602 kcal/Kg Calculation Used for Recommendations Kcal/kg Additional Notes Protein needs: 115-138 g/day ( 1.25-1.5 g/kg/day AdjBW 91. 75kg) Fluid needs: urine output + 1000 ml or per MD Nutrition Intervention Change Diet Order: Continue renal with consistent CHO Add Supplement/Snack (indicate name/kcal Juan Manuel BID /protein ) Nepro BID Provides kCal: 615 Provides Protein (gm) 25 Goal #1 Meet >75% of energy and protein needs Goal #2 Wound Healling Anticipated Discharge Needs: Renal with consistent CHO Follow-Up By: 12/06/19 Additional Comments Follow up for PO/ONS intakes, double protein and ONS need.
[2019-12-03] MEDS: HEPARIN 5,000 UNIT/1 ML VIAL SUB-Q SCH ×2 (10:14→21:16)
--- NOTE | 2019-12-03 10:17 | Progress Note ---
Assessment and Plan This is a 44 year old woman who presents with hypotension, fevers. # ESRD: - continue HD MWF, plan for HD today - CVC was dislodged; appreciate IR (Dr. Chen) - daily labs - renally dose meds - avoid nephrotoxins - renal diet # Anemia: last hemoglobin 8.6. Continue ESAs with HD # HTN: UF as tolerated with HD. BP remains soft. Sepsis/hypotension workup per primary # Secondary Hyperparathyroidism: continue home binders as needed Subjective Date of service: 12/03/19 Interval history: No acute issues noted. Improved pain in lower extremities. Objective - Exam Narrative Exam: Constitutional: no acute distress Head: NC/AT Neck: supple Lungs: clear to auscultation CV: RRR, no M/R/G Abdomen: soft, non-tender, bowel sounds present Back: nontender Extremities: no edema, pulses WNL Skin: bilateral lower extremity wounds noted Neuro: no focal deficits, alert and oriented x4 - Vital Signs Vital signs: Vital Signs - 12hr 12/02/19 12/02/19 12/03/19 23:01 23:56 00:00 Temperature 97.9 F Pulse Rate 120 H 121 H Pulse Rate [ 121 H From Monitor] Respiratory 11 L 18 Rate Blood Pressure 101/54 O2 Sat by Pulse 100 100 Oximetry 12/03/19 12/03/19 12/03/19 00:01 01:01 02:01 Temperature Pulse Rate 121 H 93 H 90 Pulse Rate [ From Monitor] Respiratory 12 21 22 Rate Blood Pressure 101/54 112/65 112/65 O2 Sat by Pulse 97 97 99 Oximetry 12/03/19 12/03/19 12/03/19 03:01 03:24 04:00 Temperature 98.2 F Pulse Rate 87 113 H Pulse Rate [ 114 H From Monitor] Respiratory 21 22 Rate Blood Pressure 112/65 99/60 O2 Sat by Pulse 97 100 Oximetry 12/03/19 12/03/19 12/03/19 05:01 06:01 08:00 Temperature 98.1 F Pulse Rate 114 H 113 H Pulse Rate [ From Monitor] Respiratory 21 24 Rate Blood Pressure 99/60 99/60 O2 Sat by Pulse 98 98 Oximetry 12/03/19 09:15 Temperature Pulse Rate Pulse Rate [ From Monitor] Respiratory Rate Blood Pressure O2 Sat by Pulse 99 Oximetry - Lab 12/03/19 05:07 12/03/19 05:07 Most recent lab results Calcium 8.7 mg/dL (8.4-10.2) 12/03/19 05:07 Medications & Allergies - Medications Allergies/Adverse Reactions: Allergies No Known Allergies Allergy (Verified 03/12/19 12:23) Home Medications: Home Medications Medication Instructions Recorded Confirmed Last Taken Type ALBUTEROL NEB's [Proventil 0.083% 2.5 mg IH Q3HRT PRN #30 nebu 09/02/19 11/29/19 Unknown Rx NEBS] Acetaminophen [Acetaminophen TAB] 650 mg PO Q4H PRN tablet 09/13/19 11/29/19 10/26/19 Rx Gabapentin 100 mg PO Q8HR #90 capsule 09/27/19 11/29/19 Unknown Rx oxyCODONE /ACETAMINOPHEN [Percocet 1 tab PO Q6H PRN #14 tablet 09/27/19 10/26/19 11/29/19 08:00 Rx 5/325 mg] carvediloL [Coreg] 6.25 mg PO BID #60 tablet 10/28/19 11/29/19 Unknown Rx Active Medications: Generic Name Dose Route Start Last Admin Trade Name Freq PRN Reason Stop Dose Admin Acetaminophen 650 mg 11/29/19 16:28 11/30/19 09:45 Tylenol PO 650 mg Q4H PRN Administration Pain MILD(1-3)/Fever >100.5/[place] Albuterol 2.5 mg 11/29/19 16:28 Proventil IH Q4HRT PRN Shortness Of Breath Dextrose 0 ml 11/29/19 22:09 D50w (25gm) Syringe IV Q30MIN PRN Hypoglycemia Protocol Epoetin Arias 10,000 unit 11/30/19 16:27 12/01/19 19:02 Procrit IV 10,000 unit AMBER PRN Administration hemodialysis Gabapentin 100 mg 11/29/19 22:00 12/03/19 06:11 Gabapentin PO 100 mg Q8HR WALT Administration Heparin Sodium (Porcine) 5,000 unit 11/29/19 22:00 12/02/19 23:15 Heparin SUB-Q 5,000 unit Q12HR WALT Administration Cefepime HCl 2 gm in 100 mls @ 200 mls/hr 11/29/19 17:00 12/02/19 16:26 Cefepime/Ns 2 Gm/100 Ml IV 200 mls/hr Q24H WALT Administration Protocol Sodium Chloride 100 mls @ 999 mls/hr 11/30/19 16:27 Nacl 0.9% IV AMBER PRN Hypotension Sodium Chloride 500 mls @ 50 mls/hr 12/02/19 13:00 Nacl 0.9% 500 Ml IV DIRECT WALT Metronidazole 500 mg in 100 mls @ 100 mls/hr 12/02/19 16:00 12/03/19 06:11 Flagyl 500 Mg/100 Ml IV 100 mls/hr Q8HR WALT Administration Protocol Insulin Human Lispro 0 unit 11/30/19 07:30 12/03/19 08:09 Humalog SUB-Q Not Given ACHS WALT Protocol Ondansetron HCl 4 mg 11/29/19 16:28 Zofran IV Q8H PRN Nausea And Vomiting Oxycodone/Acetaminophen 1 tab 11/30/19 09:59 12/02/19 23:23 Percocet 5/325 PO 1 tab Q6H PRN Administration Pain, Moderate (4-6) Sodium Chloride 10 ml 11/29/19 22:00 12/02/19 09:56 Sodium Chloride Flush Syringe 10 Ml IV 10 ml BID WALT Administration Sodium Chloride 10 ml 11/29/19 16:28 Sodium Chloride Flush Syringe 10 Ml IV PRN PRN LINE FLUSH
--- NOTE | 2019-12-03 11:41 | Progress Note ---
Assessment and Plan Cultures: 11/29/2019 blood cultures: NGTD MRSA negative 12/02/2019 catheter tip culture A&P: 44-year-old female with past medical history of ESRD on HD, HTN, DM 2, CHF, COPD, morbid obesity, peripheral vascular disease admitted with SIRS and possible sepsis. #SIRS possible sepsis: present with leukocytosis and tachycardia, however no ob vious infective source is present. #Leukocytosis: unclear etiology, no acute focal symptoms. Wounds look relatively good compared to previous, and no obvious purulence. Continue vanc and cefepime for now, if MRSA swab returns negative would stop vancomycin. #Chronic wounds of the feet - often colonized with GNR. Recommend culturing only if new symptoms, obvious new drainage, or worsening wounds. Continue wound care. Mother reports she has new wounds on her calves which drain thin, watery fluid. #ESRD on HD: renally dose antibiotics. Line was dislodged, for replacement. #DM2: tight glycemic control Recommendations: - continue cefepime for now. - continue metronidazole - follow up blood cultures - continue wound care. - recommend 10 days of cefepime on discharge, 2g with dialysis. Case management consulted. Thank you for the consult, will continue to follow. Flakita Negrete MD [facility] M: [phone] O: [phone] F: [phone] Subjective Date of service: 12/03/19 Interval history: More alert today. Afebrile, white count now 20. Objective - Exam Narrative Exam: Physical Exam: Constitutional: alert, cooperative. No acute distress Head, Ears, Nose: Normocephalic, atraumatic. External ears, nose normal Eyes: Conjunctivae/corneas clear. No icterus. No ptosis. Cardiovascular: S1, S2 normal. L chest CVC Respiratory: Good air entry, clear to auscultation bilaterally GI: Soft, non-tender; bowel sounds normal. No peritoneal signs. Musculoskeletal: No pedal edema, no cyanosis. Skin: Bilateral chronic leg wounds with L foot Psych: Mood ok. Affect normal Neurological: Awake, alert, oriented. No gross abnormality - Constitutional Vitals: Vital Signs Temp Pulse Resp BP Pulse Ox 98.1 F 115 H 16 104/67 100 12/03/19 08:00 12/03/19 11:01 12/03/19 11:01 12/03/19 11:01 12/03/19 11:01 Temperature -Last 24 Hours Temperature 98.1 F Temperature 98.2 F Temperature 97.9 F - Labs CBC & Chem 7: 12/03/19 05:07 12/03/19 05:07 Labs: Abnormal lab results 12/02/19 12/02/19 12/03/19 Range/Units 12:20 22:12 05:07 WBC 19.7 H (4.5-11.0) K/mm3 RBC 3.18 L (3.65-5.03) M/mm3 Hgb 8.6 L (10.1-14.3) gm/dl Hct 27.1 L (30.3-42.9) % MCH 27 L (28-32) pg RDW 19.2 H (13.2-15.2) % Lymph % (Auto) 6.5 L (13.4-35.0) % Eos % (Auto) 6.3 H (0.0-4.3) % [place] # 1.3 H (0.0-0.8) K/mm3 Eos # 1.2 H (0.0-0.4) K/mm3 Seg Neutrophils % 80.1 H (40.0-70.0) % Seg Neutrophils # 15.8 H (1.8-7.7) K/mm3 Carbon Dioxide (22-30) mmol/L BUN (7-17) mg/dL Creatinine (0.7-1.2) mg/dL POC Glucose 131 H 124 H (70-105) 12/03/19 12/03/19 Range/Units 05:07 11:36 WBC (4.5-11.0) K/mm3 RBC (3.65-5.03) M/mm3 Hgb (10.1-14.3) gm/dl Hct (30.3-42.9) % MCH (28-32) pg RDW (13.2-15.2) % Lymph % (Auto) (13.4-35.0) % Eos % (Auto) (0.0-4.3) % [place] # (0.0-0.8) K/mm3 Eos # (0.0-0.4) K/mm3 Seg Neutrophils % (40.0-70.0) % Seg Neutrophils # (1.8-7.7) K/mm3 Carbon Dioxide 21 L (22-30) mmol/L BUN 50 H (7-17) mg/dL Creatinine 5.1 H (0.7-1.2) mg/dL POC Glucose 121 H (70-105)
--- NOTE | 2019-12-03 14:00 | Discharge Summary ---
Providers - Providers Date of Admission: 11/29/19 16:28 Date of discharge: 12/03/19 Attending physician: LIZY BROWN 11/30/19 10:00 Consult to Wound/ET Nurse [CONS] Routine Reason For Exam: wound eval 12/01/19 09:51 Consult to Physician [CONS] Routine Comment: Consulting Provider: OBEY BORGES Physician Instructions: Reason For Exam: possible wound infection 12/01/19 11:24 Consult to Interventional Radiology [CONS] Routine Consulting Provider: PAGE MEJIA Reason For Exam: dislodged dialysis cathere Primary care physician: ANIMAL [employer] SUPERVISOR Hospitalization Condition: Stable Hospital course: Discharge diagnosis; --Sepsis from infected chronic wound Presented with fever, elevated white count, hypotension and tachycardia Sepsis protocol: IV antibiotic therapy, IV fluid resuscitation therapy, ordered blood cx Cont empiric abx for now, negative blood cx consulted ID - follow recommendation --End stage renal disease Nephrology consulted in ED, dialysis as per renal team, strict I/O's/daily weight, monitor urine output every shift, avoid nephrotoxic agents. --Dislodged HD catheter, IR consulted for perm cath replaced --B/l chronic non healing wound wound care consulted, ? infected cont abx --Symptomatic anemia PRBC 6.5 on admission s/p one unit Packed red blood cell transfusion, monitor CBC, --hypotension, likely from anemia and underlying sepsis ? cont to monitor -- Morbid Obesity dietary consulted --Hypertension Monitor blood pressure every shift, hold antihypertensive medication for now as patient currently hypotensive. --Diabetes type 2 Consistent carbohydrate diet, sliding scale insulin therapy, Accu-Cheks, hypoglycemia protocol. --Nicotine dependence with withdrawal Smoking cessation counseling, supportive care, +15 minutes. --Advance care planning Patient is a full code, disease education conducted at bedside, patient's mother acknowledges understanding and agreement with care plan. Disposition: [id number]/[place]-06 HOME UNDER HOME [facility] Core Measure Documentation - Palliative Care Palliative Care/ Comfort Measures: Not Applicable Exam - Constitutional Vitals: Temp Pulse Resp BP Pulse Ox 98.1 F 115 H 16 104/67 100 12/03/19 08:00 12/03/19 11:01 12/03/19 11:01 12/03/19 11:01 12/03/19 11:01 Plan Activity: advance as tolerated, fall precautions Diet: renal Wound: per wound nurse instructions Additional Instructions: ID advised cefepime 2 g with dialysis for total 10 days. Advised follow-up nephrology/HD per schedule Follow up with: PRIMARY CAREMD [Primary Care Provider] - 7 Days JUANCHO RANDHAWA MD [Staff Physician] - 7 Days EZRA VALENZUELA MD [Staff Physician] - 14 Days Prescriptions: metroNIDAZOLE [Flagyl TAB] 500 mg PO Q8HR #30 tablet oxyCODONE /ACETAMINOPHEN [Percocet 5/325] 1 tab PO BID #10 tablet
[2019-12-03] MEDS ORDERED: SODIUM CHLORIDE*PRIMING MACHINE ONLY FOR DIALYSIS MC ONE ×2 (15:32→18:33)
[2019-12-03] MEDS: EPOETIN ALFA 10,000 UNIT/1 ML INJ IV PRN (17:05)
[2019-12-03 20:25] VITALS: BP 107/69
== END 2019-12-03 21:56 | disposition home health service (06) | DRG 871 ==
LOC: ED 12:15 → IMCU 16:28
PROVIDERS: ADMIT Internal Medicine; ATTEND Internal Medicine
PROC: 30233N1 Transfusion of Nonautologous Red Blood Cells into Peripheral Vein, Percutaneous Approach (ICD-10-PCS; principal; 2019-11-30)
PROC: 5A1D70Z Performance of Urinary Filtration, Intermittent, Less than 6 Hours Per Day (ICD-10-PCS; 2019-12-01)
PROC: 02HV33Z Insertion of Infusion Device into Superior Vena Cava, Percutaneous Approach (ICD-10-PCS; 2019-12-02)
PROC: 5A1D70Z Performance of Urinary Filtration, Intermittent, Less than 6 Hours Per Day (ICD-10-PCS; 2019-12-03)
DX: A41.9 Sepsis, unspecified organism (principal); N18.6 End stage renal disease; I13.2 Hypertensive heart and chronic kidney disease with heart failure and with stage 5 chronic kidney disease, or end stage renal disease; E66.2 Morbid (severe) obesity with alveolar hypoventilation; E87.2 Acidosis; F17.213 Nicotine dependence, cigarettes, with withdrawal; N25.81 Secondary hyperparathyroidism of renal origin; Z68.43 Body mass index [BMI] 50.0-59.9, adult; T82.42XA Displacement of vascular dialysis catheter, initial encounter; D64.9 Anemia, unspecified; J44.9 Chronic obstructive pulmonary disease, unspecified; E11.22 Type 2 diabetes mellitus with diabetic chronic kidney disease; I50.9 Heart failure, unspecified; R53.81 Other malaise; I95.9 Hypotension, unspecified; I73.9 Peripheral vascular disease, unspecified; Z99.2 Dependence on renal dialysis; Z83.3 Family history of diabetes mellitus; Z82.49 Family history of ischemic heart disease and other diseases of the circulatory system; Z91.14 Patient's other noncompliance with medication regimen; Z91.15 Patient's noncompliance with renal dialysis; Z71.3 Dietary counseling and surveillance; Y93.89 Activity, other specified; Y92.89 Other specified places as the place of occurrence of the external cause; Y99.8 Other external cause status
CPT/HCPCS: 36415; 36581; 71045; 77001; 80048; 80053; 80061; 80074; 80202; 82140; 82962; 84484; 85007; 85025; 86850; 86900; 86901; 86920; 87040; 87116; 93005; 93010; 94760; G0378; C1750; C1769; J0692; J0885; J1644; J1815; J2250; J3010; J3370; J7030; J7040; P9016

== ENCOUNTER 2019-12-07 14:21 | Outpatient (CLI) | payer MEDICARE ==
--- NOTE | 2019-12-07 18:24 | Vascular Lab Report ---
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 TECHNIQUE: Arterial duplex examination of the left lower extremity performed using B-mode, color flow and spectr al Doppler assessment. FINDINGS: LEFT: Common Femoral Artery: PSV 97 cm/sec. Triphasic waveform. Proximal SFA: PSV 89 cm/sec. Triphasic waveform. Mid SFA: PSV 132 cm/sec. Monophasic waveform. Distal SFA: Not visualized. Popliteal artery: PSV 57 cm/sec. Monophasic waveform. Posterior tibial artery: PSV 38 cm/sec. Biphasic waveform. Dorsalis Pedis Artery: PSV 57 cm/sec. Biphasic waveform. IMPRESSION: 1. Significant peripheral arterial disease and left lower extremity with apparent occlusion of the di stal left SFA and abnormal waveforms in the mid SFA into the calf arteries. Doppler Waveform: * Triphasic is normal. * Biphasic is abnormal if clear transition from triphasic signal along vascular tree. * Monophasic is abnormal. Signer Name: Esteban Mejía MD Signed: 12/07/2019 6:20 PM Workstation Name: [id number]
== END 2019-12-07 14:22 | disposition home or self-care (01) ==
LOC: MRI 14:21
PROVIDERS: ATTEND Surgery
DX: L97.222 Non-pressure chronic ulcer of left calf with fat layer exposed (principal)

== ENCOUNTER 2019-12-15 12:54 | Outpatient (CLI) | payer MEDICARE ==
[2019-12-15] MEDS ORDERED: LIDOCAINE (4%) 40 MG/ML TOPICAL SOLN 50 ML BOTTLE TP ONE (13:06)
== END 2019-12-15 12:55 | disposition home or self-care (01) ==
LOC: WOUND 12:54
PROVIDERS: ATTEND Surgery
DX: E10.622 Type 1 diabetes mellitus with other skin ulcer (principal); L89.312 Pressure ulcer of right buttock, stage 2; L98.411 Non-pressure chronic ulcer of buttock limited to breakdown of skin; E10.621 Type 1 diabetes mellitus with foot ulcer; L89.619 Pressure ulcer of right heel, unspecified stage; L97.411 Non-pressure chronic ulcer of right heel and midfoot limited to breakdown of skin; E83.59 Other disorders of calcium metabolism; E10.22 Type 1 diabetes mellitus with diabetic chronic kidney disease; I13.2 Hypertensive heart and chronic kidney disease with heart failure and with stage 5 chronic kidney disease, or end stage renal disease; N18.6 End stage renal disease; I50.9 Heart failure, unspecified; I25.10 Atherosclerotic heart disease of native coronary artery without angina pectoris; Z87.891 Personal history of nicotine dependence

== ENCOUNTER 2019-12-15 14:59 | Emergency (ER) | payer MEDICARE ==
--- NOTE | 2019-12-15 16:36 | Emergency Department Report ---
ED General Adult HPI - General Chief complaint: Medical Clearance Stated complaint: OCCLUDED ARTERY Time Seen by Provider: 12/15/19 16:02 Source: patient Mode of arrival: Wheelchair Limitations: No Limitations, Physical Limitation - History of Present Illness Initial comments: Patient presents to the emergency department with a chief complaint of vascular issues. Patient was sent to emergency department by her wound care doctor for concerns of decreased blood flow in the left leg. Patient endorses having pain in her left leg but states is chronic in nature secondary to the wounds. Patient also states she has good sensation in her leg. Patient denies chest pain, shortness breath, headache -: unknown Location: lower extremity Radiation: non-radiation Severity scale (0 -10): 3 Quality: aching Consistency: constant Improves with: none Worsens with: none Associated Symptoms: denies other symptoms Treatments Prior to Arrival: none - Related Data Previous Rx's Medication Instructions Recorded Last Taken Type ALBUTEROL NEB's [Proventil 0.083% 2.5 mg IH Q3HRT PRN #30 nebu 09/02/19 Unknown Rx NEBS] Acetaminophen [Acetaminophen TAB] 650 mg PO Q4H PRN tablet 09/13/19 10/26/19 Rx Gabapentin 100 mg PO Q8HR #90 capsule 09/27/19 Unknown Rx carvediloL [Coreg] 6.25 mg PO BID #60 tablet 10/28/19 Unknown Rx metroNIDAZOLE [Flagyl TAB] 500 mg PO Q8HR #30 tablet 12/03/19 Unknown Rx oxyCODONE /ACETAMINOPHEN [Percocet 1 tab PO BID #10 tablet 12/03/19 Unknown Rx 5/325] HYDROcodone/APAP 5-325 [Vinson 1 each PO Q6HR PRN #12 tablet 12/15/19 Unknown Rx 5/325] Sulfamethoxazole/Trimethoprim 2 each PO BID #28 tablet 12/15/19 Unknown Rx [Bactrim DS TAB] Allergies Allergy/AdvReac Type Severity Reaction Status Date / Time No Known Allergies Allergy Verified 03/12/19 12:23 ED Review of Systems ROS: Stated complaint: OCCLUDED ARTERY Other details as noted in HPI Comment: All other systems reviewed and negative Constitutional: denies: chills, fever Eyes: denies: eye pain, eye discharge, vision change ENT: denies: ear pain, throat pain Respiratory: denies: cough, shortness of breath, wheezing Cardiovascular: denies: chest pain, palpitations Endocrine: no symptoms reported Gastrointestinal: denies: abdominal pain, nausea, diarrhea Genitourinary: denies: urgency, dysuria, discharge Musculoskeletal: other (Bilateral leg pain). denies: back pain, joint swelling, arthralgia Skin: denies: rash, lesions Neurological: denies: headache, weakness, paresthesias Psychiatric: denies: anxiety, depression Hematological/Lymphatic: denies: easy bleeding, easy bruising ED Past Medical Hx - Past Medical History Previous Medical History?: Yes Hx Hypertension: Yes Hx Heart Attack/AMI: No Hx Congestive Heart Failure: Yes Hx Diabetes: Yes Hx Deep Vein Thrombosis: No Hx Pulmonary Embolism: No Hx Liver Disease: Yes Hx Renal Disease: Yes (dialysis) Hx Asthma: No Hx COPD: Yes Hx Tuberculosis: No Hx HIV: No Additional medical history: PVD, and cellulitis - Surgical History Past Surgical History?: Yes Hx Coronary Stent: No Hx Pacemaker: No Hx Internal Defibrillator: No Additional Surgical History: Perm cath, - Social History Smoking Status: Never Smoker Substance Use Type: None - Medications Home Medications: Home Medications Medication Instructions Recorded Confirmed Last Taken Type ALBUTEROL NEB's [Proventil 0.083% 2.5 mg IH Q3HRT PRN #30 nebu 09/02/19 11/29/19 Unknown Rx NEBS] Acetaminophen [Acetaminophen TAB] 650 mg PO Q4H PRN tablet 09/13/19 11/29/19 10/26/19 Rx Gabapentin 100 mg PO Q8HR #90 capsule 09/27/19 11/29/19 Unknown Rx carvediloL [Coreg] 6.25 mg PO BID #60 tablet 10/28/19 11/29/19 Unknown Rx metroNIDAZOLE [Flagyl TAB] 500 mg PO Q8HR #30 tablet 12/03/19 Unknown Rx oxyCODONE /ACETAMINOPHEN [Percocet 1 tab PO BID #10 tablet 12/03/19 Unknown Rx 5/325] HYDROcodone/APAP 5-325 [Vinson 1 each PO Q6HR PRN #12 tablet 12/15/19 Unknown Rx 5/325] Sulfamethoxazole/Trimethoprim 2 each PO BID #28 tablet 12/15/19 Unknown Rx [Bactrim DS TAB] ED Physical Exam - General Limitations: No Limitations, Physical Limitation General appearance: alert, in no apparent distress - Head Head exam: Present: atraumatic, normocephalic - Eye Eye exam: Present: normal appearance, PERRL, EOMI - ENT ENT exam: Present: mucous membranes moist - Neck Neck exam: Present: normal inspection - Respiratory Respiratory exam: Present: normal lung sounds bilaterally. Absent: respiratory distress - Cardiovascular Cardiovascular Exam: Present: regular rate, normal rhythm, other. Absent: systolic murmur, diastolic murmur, rubs, gallop - GI/Abdominal GI/Abdominal exam: Present: soft, normal bowel sounds. Absent: distended, tenderness - Extremities Exam Extremities exam: Present: normal inspection, pedal edema, other (There is edema to the left foot. Left foot is warm to touch and the patient has full motor motion of the left foot there is a faint dorsalis pedis pulse felt on exam) - Back Exam Back exam: Present: normal inspection - Neurological Exam Neurological exam: Present: alert, oriented X3 - Psychiatric Psychiatric exam: Present: normal affect, normal mood - Skin Skin exam: Present: warm, dry, normal color, other (Patient has healing ulcers of her right lower extremity and left lower extremity with granulation tissue present). Absent: rash ED Course Vital Signs 12/15/19 12/15/19 15:53 17:04 Temperature 98.4 F Pulse Rate 122 H Respiratory 16 16 Rate Blood Pressure 124/54 O2 Sat by Pulse 100 100 Oximetry ED Medical Decision Making - Lab Data Result diagrams: 12/15/19 16:37 12/15/19 16:37 Lab Results 12/15/19 12/15/19 12/15/19 Range/Units 16:37 16:37 16:37 WBC 18.1 H (4.5-11.0) K/mm3 RBC 2.70 L (3.65-5.03) M/mm3 Hgb 7.4 L (10.1-14.3) gm/dl Hct 23.1 L (30.3-42.9) % MCV 86 (79-97) fl MCH 28 (28-32) pg MCHC 32 (30-34) % RDW 21.2 H (13.2-15.2) % Plt Count 272 (140-440) K/mm3 Lymph % (Auto) 7.1 L (13.4-35.0) % [place] % (Auto) 9.5 H (0.0-7.3) % Eos % (Auto) 5.3 H (0.0-4.3) % Baso % (Auto) 1.1 (0.0-1.8) % Lymph # 1.3 (1.2-5.4) K/mm3 [place] # 1.7 H (0.0-0.8) K/mm3 Eos # 1.0 H (0.0-0.4) K/mm3 Baso # 0.2 H (0.0-0.1) K/mm3 Seg Neutrophils % 77.0 H (40.0-70.0) % Seg Neutrophils # 13.9 H (1.8-7.7) K/mm3 PT 20.2 H (12.2-14.9) Sec. INR 1.69 H (0.87-1.13) APTT 33.4 (24.2-36.6) Sec. Sodium 137 (137-145) mmol/L Potassium 3.5 L (3.6-5.0) mmol/L Chloride 98.5 (98-107) mmol/L Carbon Dioxide 26 (22-30) mmol/L Anion Gap 16 mmol/L BUN 31 H (7-17) mg/dL Creatinine 3.3 H (0.7-1.2) mg/dL Estimated GFR 19 ml/min BUN/Creatinine Ratio 9 % Glucose 107 H (65-100) mg/dL Lactic Acid (0.7-2.0) mmol/L Calcium 7.9 L (8.4-10.2) mg/dL Total Bilirubin 0.70 (0.1-1.2) mg/dL AST 15 (5-40) units/L ALT < 5 L (7-56) units/L Alkaline Phosphatase 224 H (35-129) units/L Total Protein 7.2 (6.3-8.2) g/dL Albumin 1.8 L (3.9-5) g/dL Albumin/Globulin Ratio 0.3 % 12/15/19 Range/Units 16:37 WBC (4.5-11.0) K/mm3 RBC (3.65-5.03) M/mm3 Hgb (10.1-14.3) gm/dl Hct (30.3-42.9) % MCV (79-97) fl MCH (28-32) pg MCHC (30-34) % RDW (13.2-15.2) % Plt Count (140-440) K/mm3 Lymph % (Auto) (13.4-35.0) % [place] % (Auto) (0.0-7.3) % Eos % (Auto) (0.0-4.3) % Baso % (Auto) (0.0-1.8) % Lymph # (1.2-5.4) K/mm3 [place] # (0.0-0.8) K/mm3 Eos # (0.0-0.4) K/mm3 Baso # (0.0-0.1) K/mm3 Seg Neutrophils % (40.0-70.0) % Seg Neutrophils # (1.8-7.7) K/mm3 PT (12.2-14.9) Sec. INR (0.87-1.13) APTT (24.2-36.6) Sec. Sodium (137-145) mmol/L Potassium (3.6-5.0) mmol/L Chloride (98-107) mmol/L Carbon Dioxide (22-30) mmol/L Anion Gap mmol/L BUN (7-17) mg/dL Creatinine (0.7-1.2) mg/dL Estimated GFR ml/min BUN/Creatinine Ratio % Glucose (65-100) mg/dL Lactic Acid 1.20 (0.7-2.0) mmol/L Calcium (8.4-10.2) mg/dL Total Bilirubin (0.1-1.2) mg/dL AST (5-40) units/L ALT (7-56) units/L Alkaline Phosphatase (35-129) units/L Total Protein (6.3-8.2) g/dL Albumin (3.9-5) g/dL Albumin/Globulin Ratio % - Medical Decision Making Patient's white blood cell count on December 02 was 22.4 and white blood cell count on December 03 was 19.7 Report that was sent with the patient from her wound care doctor shows that the patient has peripheral arterial disease of the left lower extremity with possi ble occlusion at the distal left SVA Discussed findings with the vascular surgeon Dr. Dodson and the patient was discussed in detail. Patient was reexamined at 7:45 PM and the patient left foot is still warm to touch and she has full range of motion of the foot. At this time we felt that the patient's findings on arterial study were chronic in nature and the patient can follow-up as outpatient with Dr. Dodson. These findings were discussed with the patient and the patient understands that she has to follow-up with vascular surgery Critical care attestation.: If time is entered above; I have spent that time in minutes in the direct care of this critically ill patient, excluding procedure time. ED Disposition Clinical Impression: PAD (peripheral artery disease) Disposition: DC-01 TO HOME OR SELFCARE Is pt being admited?: No Does the pt Need Aspirin: No Condition: Stable Instructions: Peripheral Artery Disease (ED) Additional Instructions: return if worse Please contact the vascular surgeon provided to you in the morning for an appointment to be seen that day Referrals: PRIMARY LORENA, [Primary Care Provider] - 3-5 Days LUIS DODSON MD [Staff Physician] - 3-5 Days Time of Disposition: 21:25
[2019-12-15 17:15] LABS: Basophils # (Auto) 0.2 K/mm3 (0.0-0.1); Basophils % (Auto) 1.1 % (0.0-1.8); Eosinophils % (Auto) 5.3 % (0.0-4.3); Hematocrit 23.1 % (30.3-42.9); Hemoglobin 7.4 gm/dl (10.1-14.3); Lymphocytes # (Auto) 1.3 K/mm3 (1.2-5.4); Lymphocytes % (Auto) 7.1 % (13.4-35.0); Mean Corpuscular HGB Conc 32 % (30-34); Mean Corpuscular Volume 86 fl (79-97); Monocytes # (Auto) 1.7 K/mm3 (0.0-0.8); Monocytes % (Auto) 9.5 % (0.0-7.3); Platelet Count 272 K/mm3 (140-440)
[2019-12-15 17:18] LABS: Red Cell Distribution Width 21.2 % (13.2-15.2)
[2019-12-15 17:24] LABS: Albumin 1.8 g/dL (3.9-5); BUN/Creatinine Ratio 9; Blood Urea Nitrogen 31 mg/dL (7-17); Calcium 7.9 mg/dL (8.4-10.2); Hemolysis Index 2; INR 1.69 (0.87-1.13)
[2019-12-15 17:25] LABS: Partial Thromboplastin Time 33.4 Sec. (24.2-36.6)
[2019-12-15 17:29] LABS: Alanine Aminotransferase < 5 units/L (7-56)
[2019-12-15] MEDS ORDERED: MORPHINE 4 MG/1 ML INJ IV ONE (19:22)
[2019-12-15] MEDS ORDERED: ONDANSETRON 4 MG/2 ML INJ IV ONE (19:22)
[2019-12-16 00:36] VITALS: BP 102/40
== END 2019-12-16 00:37 | disposition home or self-care (01) ==
LOC: ED 14:59
DX: I73.9 Peripheral vascular disease, unspecified (principal); I10 Essential (primary) hypertension; I50.9 Heart failure, unspecified; E11.9 Type 2 diabetes mellitus without complications; K76.9 Liver disease, unspecified; J44.9 Chronic obstructive pulmonary disease, unspecified; L03.90 Cellulitis, unspecified; Z87.448 Personal history of other diseases of urinary system; Z98.890 Other specified postprocedural states; Z79.899 Other long term (current) drug therapy
CPT/HCPCS: 36415; 80053; 82140; 85025; 85610; 85730; 87040; 88304; 88311; 96374; 96375; 99284; J2270; J2405